=== PATIENT | female | born 1935 | race Caucasian/White ===

== ENCOUNTER 2020-12-02 12:48 | Inpatient (IN) | payer MEDICARE ==
[~2020-12-02] VITALS: Ht 165.1 cm; Wt 49.0 kg
[2020-12-02 14:03] LABS: BILIRUBIN,URINE NEG (NEG); CLARITY,URINE CLEAR; COLOR,URINE YELLOW; GLUCOSE,URINE NEG (NEG)
[2020-12-02 14:05] LABS: NITRITE,URINE NEG (NEG); UROBILINOGEN,URINE 0.2 mg/dL (0.2 mg/dL)
[2020-12-02 14:07] LABS: BACTERIA,URINE 0 /HPF (0-FEW); RBC,URINE RARE /HPF (0-2); WBC,URINE 0 /HPF (0-4)
[2020-12-02 14:25] LABS: BASO # 0.1 x10^3/uL (0.0-0.2); BASO % 1 % (0-3); CALCIUM 9.8 mg/dL (8.5-10.1); CREATININE 0.9 mg/dL (0.6-1.0); EOS # 0.1 x10^3/uL (0.0-0.7); EOS % 1 % (0-3); GFR 59.8; HEMATOCRIT 40.1 % (36.0-47.0); HEMOGLOBIN 13.7 g/dL (12.0-15.5); LYMPH # 1.4 x10^3/uL (1.0-4.8); LYMPH % 20 % (24-48); MEAN CORPUSCULAR HEMOGLOBIN 32 pg (25-35); MEAN CORPUSCULAR HGB CONC 34 g/dL (31-37); MEAN CORPUSCULAR VOLUME 92 fL (79-100); MONO # 0.5 x10^3/uL (0.0-1.1); MONO % 8 % (0-9); NEUT # 4.7 x10^3uL (1.8-7.7); NEUT % 70 % (31-73); PLATELET COUNT 291 x10^3/uL (140-400); POTASSIUM 3.2 mmol/L (3.5-5.1); RED BLOOD COUNT 4.36 x10^6/uL (3.50-5.40); RED CELL DISTRIBUTION WIDTH 12.7 % (11.5-14.5); WHITE BLOOD COUNT 6.8 x10^3/uL (4.0-11.0)
[2020-12-02] MEDS ORDERED: LORazepam 1 MG TABLET ONE (14:25)
[2020-12-02] MEDS ORDERED: LORazepam 1 MG TABLET PO ONE (14:30)
[2020-12-02 14:31] LABS: ALBUMIN 4.5 g/dL (3.4-5.0); ALBUMIN/GLOBULIN RATIO 1.3 (1.0-1.7); MAGNESIUM 2.3 mg/dL (1.8-2.4); TOTAL BILIRUBIN 0.6 mg/dL (0.2-1.0); TOTAL PROTEIN 8.1 g/dL (6.4-8.2)
--- NOTE | 2020-12-02 14:45 | PHYS DOC ---
Past History Past Medical History: Dementia, Hypertension Past Surgical History: Cholecystectomy Alcohol Use: None Adult General Chief Complaint Chief Complaint: MEDICAL CLEARANCE [facility] HPI Patient is an 85-year-old female who presents to the emergency room for medical clearance to go to [facility]. Patient has dementia and severe confusion. No other history is available. Patient is unable to provide us any history. She does have an acceptance at our [facility] facility and just needs lab work done prior to going up. Review of Systems Review of Systems Complete ROS is negative unless otherwise documented in HPI Current Medications Current Medications Current Medications Medications (Trade) Dose Ordered Sig/Brianne Start Time Stop Time Status Last Admin Dose Admin Lorazepam (Ativan) 1 mg 1X ONCE 12/02/20 14:30 12/02/20 14:36 DC 12/02/20 14:31 1 MG Allergies Allergies Allergies Coded Allergies Type Severity Reaction Last Updated Verified No Known Drug Allergies 12/02/20 No Physical Exam Physical Exam General: Awake, alert, NAD. Well Nourished, well hydrated. Confused HEENT: Atraumatic, EOMI, PERRL, airway patent, moist oral mucosa Neck: Supple, trachea midline Respiratory: CTA bilaterally, normal effort, no wheezing/crackles CV: RRR, no murmur, cap refill <2 GI: Soft, nondistended, nontender, no masses MSK: No obvious deformities Skin: Warm, dry, intact Neuro: A&O x1, speech NL, sensory and motor grossly intact, no focal deficits Psych: not suicidal or homicidal Current Patient Data Vital Signs Vital Signs Date Time Temp Pulse Resp B/P (MAP) Pulse Ox O2 Delivery O2 Flow Rate FiO2 12/02/20 12:54 97.3 89 22 132/75 (94) 99 Room Air Lab Results Laboratory Tests Test 12/02/20 13:20 12/02/20 13:50 Urine Collection Type U cath Urine Color Yellow Urine Clarity Clear Urine pH 6.0 Urine Specific Max 1.025 Urine Protein Neg (NEG-TRACE) Urine Glucose (UA) Neg mg/dL (NEG) Urine Ketones (Stick) 15 mg/dL (NEG) Urine Blood Small (NEG) Urine Nitrite Neg (NEG) Urine Bilirubin Neg (NEG) Urine Urobilinogen Dipstick 0.2 mg/dL (0.2 mg/dL) Urine Leukocyte Esterase Neg (NEG) Urine RBC Rare /HPF (0-2) Urine WBC 0 /HPF (0-4) Urine Bacteria 0 /HPF (0-FEW) White Blood Count 6.8 x10^3/uL (4.0-11.0) Red Blood Count 4.36 x10^6/uL (3.50-5.40) Hemoglobin 13.7 g/dL (12.0-15.5) Hematocrit 40.1 % (36.0-47.0) Mean Corpuscular Volume 92 fL (79-100) Mean Corpuscular Hemoglobin 32 pg (25-35) Mean Corpuscular Hemoglobin Concent 34 g/dL (31-37) Red Cell Distribution Width 12.7 % (11.5-14.5) Platelet Count 291 x10^3/uL (140-400) Neutrophils (%) (Auto) 70 % (31-73) Lymphocytes (%) (Auto) 20 % (24-48) L Monocytes (%) (Auto) 8 % (0-9) Eosinophils (%) (Auto) 1 % (0-3) Basophils (%) (Auto) 1 % (0-3) Neutrophils # (Auto) 4.7 x10^3uL (1.8-7.7) Lymphocytes # (Auto) 1.4 x10^3/uL (1.0-4.8) Monocytes # (Auto) 0.5 x10^3/uL (0.0-1.1) Eosinophils # (Auto) 0.1 x10^3/uL (0.0-0.7) Basophils # (Auto) 0.1 x10^3/uL (0.0-0.2) EKG EKG [] Radiology/Procedures Radiology/Procedures [] Heart Score C/O Chest Pain: N/A Risk Factors: Risk Factors: DM, Current or recent (<one month) smoker, HTN, HLP, family history of CAD, obesity. Risk Scores: Risk Factors: DM, Current or recent (<one month) smoker, HTN, HLP, family hist ory of CAD, obesity. Course & Med Decision Making Course & Med Decision Making Pertinent Labs and Imaging studies reviewed. (See chart for details) Patient is an 85-year-old female who presents to the emergency room for medical clearance. Lab work and EKG were ordered as requested. Patient did receive Ativan. She attempted to escape from the emergency room multiple times while here. Patient cleared to go upstairs. Dragon Disclaimer Dragon Disclaimer This electronic medical record was generated, in whole or in part, using a voice recognition dictation system. Departure Departure: Impression: Primary Impression: Dementia [facility] Condition: STABLE Referrals: PCP,NO (PCP) NATHANIEL FIGUEROA MD Dec 02, 2020 14:45
[2020-12-02] MEDS ORDERED: POTASSIUM BICARB 20 MEQ EFFERVESCENT TABLET. ONE (14:56)
[2020-12-02] MEDS ORDERED: POTASSIUM & SODIUM PHOSPHATES PACKET. PO ONE (15:00)
[2020-12-02] MEDS ORDERED: POTASSIUM BICARB 20 MEQ EFFERVESCENT TABLET. PO ONE (15:00)
[2020-12-02] MEDS ORDERED: MULT-460 PO (15:42)
[2020-12-02] MEDS ORDERED: LISI10TA16 PO (15:43)
[2020-12-02] MEDS ORDERED: MAGNESIUM HYDROXIDE 2,400 MG/30 ML ORAL.SUSP. PO PRN (15:45)
[2020-12-02] MEDS ORDERED: LORA-254 PO (15:45)
[2020-12-02] MEDS ORDERED: MAG HYDROX/AL HYDROX/SIMETH 30 ML ORAL.SUSP PO PRN (15:45)
[2020-12-02] MEDS ORDERED: METHYL SALICYLATE/MENTHOL TOPICAL OINTMENT 57GM TUBE. TP PRN (15:45)
[2020-12-02 15:56] VITALS: BP 136/73
--- NOTE | 2020-12-02 20:00 | EKG ---
[address] [address] Test Date: 2020-12-02 Test Time: 13:11:37 Pat Name: FARNAZ VASQUEZ Department: Room: Gender: F Rib Chopper: RANDY : 1935 Requested By: NATHANIEL FIGUEROA Order Number: [id number] Reading MD: Measurements Intervals [place] Rate: 85 P: 38 MS: 122 QRS: 26 QRSD: 80 T: 7 QT: 364 QTc: 439 Interpretive Statements SINUS RHYTHM NO SPECIFIC ECG ABNORMALITIES RI6.02 No previous ECG available for comparison
--- NOTE | 2020-12-02 22:07 | PDOC ---
Exam Note: Earle Note: Please also refer to the separate dictated note~for this date of service dictated separately.~Patient seen individually. Discussed the patient with Nursing staff reviewed the chart.~Reviewed interim history and current functioning. Reviewed vital signs,~Labs/ Radiology~and current medications noted below. Continue current treatment with the changes noted in the dictated addendum note Assessment: Vital Signs/I&O: Vital Signs Date Time Temp Pulse Resp B/P (MAP) Pulse Ox O2 Delivery O2 Flow Rate FiO2 12/02/20 15:56 98.0 97 20 136/73 (94) 97 12/02/20 12:54 Room Air Labs: Laboratory Tests Test 12/02/20 13:20 12/02/20 13:50 12/02/20 16:15 Urine Collection Type U cath Urine Color Yellow Urine Clarity Clear Urine pH 6.0 Urine Specific [place] 1.025 Urine Protein Neg (NEG-TRACE) Urine Glucose (UA) Neg mg/dL (NEG) Urine Ketones (Stick) 15 mg/dL (NEG) Urine Blood Small (NEG) Urine Nitrite Neg (NEG) Urine Bilirubin Neg (NEG) Urine Urobilinogen Dipstick 0.2 mg/dL (0.2 mg/dL) Urine Leukocyte Esterase Neg (NEG) Urine RBC Rare /HPF (0-2) Urine WBC 0 /HPF (0-4) Urine Bacteria 0 /HPF (0-FEW) White Blood Count 6.8 x10^3/uL (4.0-11.0) Red Blood Count 4.36 x10^6/uL (3.50-5.40) Hemoglobin 13.7 g/dL (12.0-15.5) Hematocrit 40.1 % (36.0-47.0) Mean Corpuscular Volume 92 fL (79-100) Mean Corpuscular Hemoglobin 32 pg (25-35) Mean Corpuscular Hemoglobin Concent 34 g/dL (31-37) Red Cell Distribution Width 12.7 % (11.5-14.5) Platelet Count 291 x10^3/uL (140-400) Neutrophils (%) (Auto) 70 % (31-73) Lymphocytes (%) (Auto) 20 % (24-48) L Monocytes (%) (Auto) 8 % (0-9) Eosinophils (%) (Auto) 1 % (0-3) Basophils (%) (Auto) 1 % (0-3) Neutrophils # (Auto) 4.7 x10^3uL (1.8-7.7) Lymphocytes # (Auto) 1.4 x10^3/uL (1.0-4.8) Monocytes # (Auto) 0.5 x10^3/uL (0.0-1.1) Eosinophils # (Auto) 0.1 x10^3/uL (0.0-0.7) Basophils # (Auto) 0.1 x10^3/uL (0.0-0.2) Sodium Level 143 mmol/L (136-145) Potassium Level 3.2 mmol/L (3.5-5.1) L Chloride Level 105 mmol/L (98-107) Carbon Dioxide Level 24 mmol/L (21-32) Anion Gap 14 (6-14) Blood Urea Nitrogen 9 mg/dL (7-20) Creatinine 0.9 mg/dL (0.6-1.0) Estimated GFR (Cockcroft-Gault) 59.8 BUN/Creatinine Ratio 10 (6-20) Glucose Level 107 mg/dL (70-99) H Calcium Level 9.8 mg/dL (8.5-10.1) Magnesium Level 2.3 mg/dL (1.8-2.4) Total Bilirubin 0.6 mg/dL (0.2-1.0) Aspartate Amino Transferase (AST) 22 U/L (15-37) Alanine Aminotransferase (ALT) 28 U/L (14-59) Alkaline Phosphatase 87 U/L (46-116) Total Protein 8.1 g/dL (6.4-8.2) Albumin 4.5 g/dL (3.4-5.0) Albumin/Globulin Ratio 1.3 (1.0-1.7) D-Dimer (Caroline) 0.76 mg/L (0.00-0.50) H Current Medications: Meds: Current Medications Medications (Trade) Dose Ordered Sig/Brianne Route PRN Reason Start Time Stop Time Status Last Admin Dose Admin Lorazepam (Ativan) 1 mg 1X ONCE PO 12/02/20 14:30 12/02/20 14:36 DC 12/02/20 14:31 Potassium Bicarbonate (Potassium Effervescent Tablet) 20 meq 1X ONCE PO 12/02/20 15:00 12/02/20 15:01 DC 12/02/20 15:00 I have reviewed the current psychotropics carefully including drug interactions. Risk benefit ratio favors no change other than as noted in my dictated progress note. Diagnosis: Problems: (1) Major neurocognitive disorder EMILY CHARLES MD Dec 02, 2020 22:07
--- NOTE | 2020-12-02 23:34 | HP ---
ADMIT DATE: 12/02/2020 PSYCHIATRIC ADMISSION HISTORY/EVALUATION IDENTIFYING DATA: The patient is an 85-year-old female referred to us from [facility] by her primary care physician/psychiatrist on account of increased confusion. She had been at the facility just briefly and was extremely agitated, biting and hitting staff at the facility. She was throwing things, agitated, restless, wandering attempting to elope. She had poor sleep, poor intake, throwing cups of water on the staff members at the facility multiple times. She tried to elope out of the back door of the Emergency Room at [facility] prior to being transferred to the [facility] behavioral health unit. The patient has a diagnosis of major neurocognitive disorder, Alzheimer, vascular with delusion behavioral disturbance. Her behaviors have been deemed dangerous, unmanageable, resulting in this referral. CHIEF COMPLAINT: "I live here. I was born here." HISTORY OF PRESENT ILLNESS: The patient has a history of major neurocognitive disorder, Alzheimer, vascular with delusion, depression, behavioral disturbance. She has had increasing confusion and short-term memory deficits, paranoia, agitation, aggression, marked mood lability with sleep and appetite changes. No clear history of bipolar disorder. PAST PSYCHIATRIC HISTORY: As above. ALLERGIES: Negative. CODE STATUS: DNR. PAST MEDICAL HISTORY: Hypertension, history of cholecystectomy in October 2001, history of hysterectomy, tonsillectomy. ACCU-CHEKS: None. DIET: Regular. Ambulates independently. CURRENT PSYCHOTROPICS: Zyprexa was initiated 2.5 mg q. 2 hours p.r.n., psychosis, agitation, max 7.5 mg in 24 hours. FAMILY HISTORY: Noncontributory. SOCIAL HISTORY: No history of alcohol, drug abuse, physical, sexual or elder abuse. She is not known to be a perpetrator. Reaction to hospitalization, the patient oblivious of it. ASSETS: Supportive living at the facility. REVIEW OF SYSTEMS: No CV, , pulmonary, eye, ENT system symptoms on review. Reliability poor. MENTAL STATUS EXAM: Oriented to herself. Insight, judgment, recent and remote memory, attention, concentration, fund of knowledge poor consistent with her diagnosis. IMPRESSION: Major neurocognitive disorder, Alzheimer, vascular with delusion, depression, behavioral disturbance, anxiety disorder, unspecified; impulse control disorder, unspecified. Rest unchanged from above. PLAN[facility]. I will see the patient daily individually from a psychiatric standpoint, medical followup with Dr. Mayfield/Dr. Baldwin. Continue current psychotropics. Observe baseline. Consider Zoloft as an antidepressant and antianxiety agent, Depakote as a mood stabilizer. ESTIMATED LENGTH OF STAY: 10 to 12 days. DISPOSITION: Plans back to [facility] when stable. DESIRE/WENDY/KAMINI DR: Mike TID: [id number]
[2020-12-03 05:55] VITALS: BP 136/84
[2020-12-03] MEDS: LISINOPRIL 10 MG TABLET PO SCH (08:34)
[2020-12-03] MEDS: MULTIVITAMIN with MINERAL TABLET. PO SCH (08:34)
[2020-12-03 12:11] LABS: THYROXINE 7.9 ug/dL (4.5-12.0)
[2020-12-03 15:44] VITALS: BP 144/64
[2020-12-03 20:31] LABS: THYROID STIM HORMONE (TSH) 1.395 uIU/mL (0.358-3.740)
--- NOTE | 2020-12-03 21:37 | CONS ---
DATE OF CONSULTATION: 12/03/2020 ATTENDING PHYSICIANS: Dr. Charles and Dr. Baldwin. We are asked to see this patient for medical consultation. HISTORY OF PRESENT ILLNESS: The patient is an 85-year-old female who lives in a senior living in [facility]. Her primary care doctor there is Dr. James. She is profoundly demented. Her has power of workers compensation attorney. She has been at the senior living. She is admitted here for agitation, aggressive behavior and not following commands and she is sent here for evaluation and adjustment of her medications at the neuropsychiatric unit. PAST MEDICAL HISTORY: Significant for dementia. She also has essential hypertension, generalized anxiety, underlying depression and some mild degenerative arthritis. SOCIAL HISTORY: She is a nonsmoker, nondrinker. She is having signs of increased delirium that is why her agreed to come here. She had been in a locked unit in [place] prior to be coming here. Her dementia seems to be getting worse. FAMILY HISTORY: Unobtainable. REVIEW OF SYSTEMS: Unobtainable. CURRENT MEDICINES: She was taking lisinopril, lorazepam, and multivitamin only. ALLERGIES: She has no known drug allergy PHYSICAL EXAMINATION: GENERAL: I saw her, this is a pleasant elderly female who was very confused and demented. INITIAL VITAL SIGNS: Show showed blood pressure 136/64 mmHg, pulse is 88 and regular. She was afebrile. Oxygen saturations are 98% on room air. HEENT: Head is without trauma. Pupils are reactive. The sclerae are nonicteric. The oropharynx is clear. NECK: Supple. No stridor. LUNGS: Good breath sounds. CARDIOVASCULAR: Showed regular heart tones. No obvious gallops. Peripheral pulses palpable and full. ABDOMEN: Soft, scaphoid, nontender. EXTREMITIES: Showed no cyanosis or edema. NEUROLOGIC FINDINGS: The patient is ambulatory. She has no gait disturbance, she is profoundly confused. She is not aware of person, place or time. SKIN: Warm and dry. PERTINENT LABORATORY STUDIES: Her admission hemoglobin was 13.7 g/dL with a white count of 6800. Electrolytes showed a sodium 143, potassium slightly diminished at 3.2 mEq per liter. Nonfasting blood sugar 107. Transaminases are normal. Creatinine 0.9 mg percent. ASSESSMENT: 1. An 85-year-old female who is profoundly demented sent here for increasing dementia, delirium and aggressive behavior. 2. Essential hypertension, currently normotensive. 3. Mild hypokalemia, etiology unclear. She is not on a diuretic. She is asymptomatic. 4. This patient is stable from a medical standpoint. RECOMMENDATIONS: 1. I shall order some oral potassium with a followup, but check next week on the scheduled time. 2. Home meds simplified have been continued. Thank you again for asking us to see the patient for medical consultation. We should gladly follow along during her inpatient stay. DAYANARA DR: Tatiana TID: [id number] CC: EMILY CHARLES MD
--- NOTE | 2020-12-03 22:16 | PDOC ---
Exam Note: Earle Note: Please also refer to the separate dictated note~for this date of service dictated separately.~Patient seen individually. Discussed the patient with Nursing staff reviewed the chart.~Reviewed interim history and current functioning. Reviewed vital signs,~Labs/ Radiology~and current medications noted below. Continue current treatment with the changes noted in the dictated addendum note Assessment: Vital Signs/I&O: Vital Signs Date Time Temp Pulse Resp B/P (MAP) Pulse Ox O2 Delivery O2 Flow Rate FiO2 12/03/20 15:44 97.8 93 20 144/64 (90) 97 12/03/20 05:55 Room Air I & O 12/02/20 12/02/20 12/03/20 15:00 23:00 07:00 Intake Total 460 ml 120 ml Balance 460 ml 120 ml Current Medications: Meds: Current Medications Medications (Trade) Dose Ordered Sig/Brianne Route PRN Reason Start Time Stop Time Status Last Admin Dose Admin Lorazepam (Ativan) 1 mg STK-MED ONCE .ROUTE 12/02/20 14:25 12/02/20 14:25 DC Lorazepam (Ativan) 1 mg 1X ONCE PO 12/02/20 14:30 12/02/20 14:36 DC 12/02/20 14:31 Potassium/ Phosphorus/Sodium (Phos-Nak) 1 pkt 1X ONCE PO 12/02/20 15:00 12/02/20 15:01 Cancel Potassium Bicarbonate (Potassium Effervescent Tablet) 20 meq STK-MED ONCE .ROUTE 12/02/20 14:56 12/02/20 14:57 DC Potassium Bicarbonate (Potassium Effervescent Tablet) 20 meq 1X ONCE PO 12/02/20 15:00 12/02/20 15:01 DC 12/02/20 15:00 Acetaminophen (Tylenol) 650 mg PRN Q6HRS PRN PO MILD PAIN / TEMP > 100.3'F 12/02/20 15:45 Multi-Ingredient Ointment (Analgesic [place]) 1 itz PRN QID PRN TP MUSCLE PAIN 12/02/20 15:45 Al Hydroxide/Mg Hydroxide (Mylanta Plus Xs) 15 ml PRN AFTMEALHC PRN PO DYSPEPSIA 12/02/20 15:45 Magnesium Hydroxide (Milk Of Magnesia) 2,400 mg PRN QHS PRN PO CONSTIPATION 12/02/20 15:45 6/15/21 16:29 Lisinopril (Prinivil) 10 mg DAILY PO 12/03/20 09:00 12/03/20 08:34 Multivitamins/ Calcium (Thera-M Plus) 1 tab DAILY PO 12/03/20 09:00 12/03/20 08:34 Olanzapine (ZyPREXA ZYDIS) 2.5 mg PRN Q2HRS PRN PO PSYCHOSIS 12/02/20 17:00 12/02/20 23:37 Potassium Chloride (Klor-Con) 20 meq DAILYWBKFT PO 12/04/20 08:00 Sertraline HCl (Zoloft) 25 mg DAILY PO 12/04/20 09:00 12/06/20 21:00 Sertraline HCl (Zoloft) 50 mg DAILY PO 12/07/20 09:00 Current Medications Medications (Trade) Dose Ordered Sig/Brianne Route PRN Reason Start Time Stop Time Status Last Admin Dose Admin Lisinopril (Prinivil) 10 mg DAILY PO 12/03/20 09:00 12/03/20 08:34 Multivitamins/ Calcium (Thera-M Plus) 1 tab DAILY PO 12/03/20 09:00 12/03/20 08:34 I have reviewed the current psychotropics carefully including drug interactions. Risk benefit ratio favors no change other than as noted in my dictated progress note. Diagnosis: Problems: (1) Dementia in Alzheimer's disease with delusions (2) Dementia in Alzheimer's disease with depression (3) Dementia of the Alzheimer's type with early onset with behavioral disturbance (4) Dementia, vascular, with delusions (5) Dementia, vascular, with depression (6) Anxiety disorder, unspecified (7) Impulse control disorder, unspecified (8) Major neurocognitive disorder EMILY CHARLES MD Dec 03, 2020 22:16
--- NOTE | 2020-12-03 23:33 | PDOC ---
Exam Note: Earle Note: This note covers elements not covered in my initial note. Subjective: The patient was seen individually in the evening of 12/03/2020 with Isis APPIAH, discussed and reviewed the chart. The patient slept 5-3/4 hours previous night. The patient has been anxious, wandering constantly, walking up and down the hallways confused, refused lunch and then she was picking items off the tray of other patients and had to be removed from the dining room. Review of Systems: Ambulation impaired. No CV, , pulmonary, eye system symptoms on review. Mental Status Exam: The patient is oriented to herself. Insight and judgment, recent and remote memory, attention and concentration is poor consistent with her diagnoses. Laboratory Data: Reviewed. Impression: Major neurocognitive disorder Alzheimer vascular with delusion, depression, and behavioral disturbance. Anxiety disorder unspecified. Impulse control disorder unspecified. Plan: Continue current psychotropics. Start Zoloft 25 mg a day for 3 days, then 50 mg a day thereafter. This is to address some of her anxiety, mood symptoms, irritability. We will make further adjustments as clinically indicated. Assessment: Vital Signs/I&O: Vital Signs Date Time Temp Pulse Resp B/P (MAP) Pulse Ox O2 Delivery O2 Flow Rate FiO2 12/03/20 15:44 97.8 93 20 144/64 (90) 97 12/03/20 05:55 Room Air I & O 12/02/20 12/02/20 12/03/20 15:00 23:00 07:00 Intake Total 460 ml 120 ml Balance 460 ml 120 ml Current Medications: Meds: Current Medications Medications (Trade) Dose Ordered Sig/Brianne Route PRN Reason Start Time Stop Time Status Last Admin Dose Admin Lorazepam (Ativan) 1 mg STK-MED ONCE .ROUTE 12/02/20 14:25 12/02/20 14:25 DC Lorazepam (Ativan) 1 mg 1X ONCE PO 12/02/20 14:30 12/02/20 14:36 DC 12/02/20 14:31 Potassium/ Phosphorus/Sodium (Phos-Nak) 1 pkt 1X ONCE PO 12/02/20 15:00 12/02/20 15:01 Cancel Potassium Bicarbonate (Potassium Effervescent Tablet) 20 meq STK-MED ONCE .ROUTE 12/02/20 14:56 12/02/20 14:57 DC Potassium Bicarbonate (Potassium Effervescent Tablet) 20 meq 1X ONCE PO 12/02/20 15:00 12/02/20 15:01 DC 12/02/20 15:00 Acetaminophen (Tylenol) 650 mg PRN Q6HRS PRN PO MILD PAIN / TEMP > 100.3'F 12/02/20 15:45 Multi-Ingredient Ointment (Analgesic [place]) 1 itz PRN QID PRN TP MUSCLE PAIN 12/02/20 15:45 Al Hydroxide/Mg Hydroxide (Mylanta Plus Xs) 15 ml PRN AFTMEALHC PRN PO DYSPEPSIA 12/02/20 15:45 Magnesium Hydroxide (Milk Of Magnesia) 2,400 mg PRN QHS PRN PO CONSTIPATION 12/02/20 15:45 12/03/20 16:29 Lisinopril (Prinivil) 10 mg DAILY PO 12/03/20 09:00 12/03/20 08:34 Multivitamins/ Calcium (Thera-M Plus) 1 tab DAILY PO 12/03/20 09:00 12/03/20 08:34 Olanzapine (ZyPREXA ZYDIS) 2.5 mg PRN Q2HRS PRN PO PSYCHOSIS 12/02/20 17:00 12/02/20 23:37 Potassium Chloride (Klor-Con) 20 meq DAILYWBKFT PO 12/04/20 08:00 Sertraline HCl (Zoloft) 25 mg DAILY PO 12/04/20 09:00 12/06/20 21:00 Sertraline HCl (Zoloft) 50 mg DAILY PO 12/07/20 09:00 Current Medications Medications (Trade) Dose Ordered Sig/Brianne Route PRN Reason Start Time Stop Time Status Last Admin Dose Admin Lisinopril (Prinivil) 10 mg DAILY PO 12/03/20 09:00 12/03/20 08:34 Multivitamins/ Calcium (Thera-M Plus) 1 tab DAILY PO 12/03/20 09:00 12/03/20 08:34 I have reviewed the current psychotropics carefully including drug interactions. Risk benefit ratio favors no change other than as noted in my dictated progress note. Diagnosis: Problems: (1) Impulse control disorder, unspecified (2) Anxiety disorder, unspecified (3) Dementia, vascular, with depression (4) Dementia, vascular, with delusions (5) Dementia in Alzheimer's disease with depression (6) Dementia in Alzheimer's disease with delusions (7) Dementia of the Alzheimer's type with early onset with behavioral disturbance EMILY CHARLES MD Dec 03, 2020 23:33
[2020-12-04 00:07] LABS: HEMOGLOBIN A1C 5.4 % (4.8-5.6)
[2020-12-04 06:01] VITALS: BP 129/63
[2020-12-04] MEDS: LISINOPRIL 10 MG TABLET PO SCH (09:49)
[2020-12-04] MEDS: SERTRALINE 25 MG TABLET. PO SCH (09:50)
[2020-12-04] MEDS: MULTIVITAMIN with MINERAL TABLET. PO SCH (09:50)
[2020-12-04] MEDS: POTASSIUM CHLORIDE 20 MEQ TABLET.ER. PO SCH (09:50)
[2020-12-04 15:45] VITALS: BP 142/87
--- NOTE | 2020-12-04 22:07 | PDOC ---
Exam Note: Earle Note: Please also refer to the separate dictated note~for this date of service dictated separately.~Patient seen individually. Discussed the patient with Nursing staff reviewed the chart.~Reviewed interim history and current functioning. Reviewed vital signs,~Labs/ Radiology~and current medications noted below. Continue current treatment with the changes noted in the dictated addendum note Assessment: Vital Signs/I&O: Vital Signs Date Time Temp Pulse Resp B/P (MAP) Pulse Ox O2 Delivery O2 Flow Rate FiO2 12/04/20 15:45 97.4 91 16 142/87 (105) 100 12/03/20 05:55 Room Air I & O 12/03/20 12/03/20 12/04/20 14:59 22:59 06:59 Intake Total 780 ml 240 ml Balance 780 ml 240 ml Current Medications: Meds: Current Medications Medications (Trade) Dose Ordered Sig/Brianne Route PRN Reason Start Time Stop Time Status Last Admin Dose Admin Lorazepam (Ativan) 1 mg STK-MED ONCE .ROUTE 12/02/20 14:25 12/02/20 14:25 DC Lorazepam (Ativan) 1 mg 1X ONCE PO 12/02/20 14:30 12/02/20 14:36 DC 12/02/20 14:31 Potassium/ Phosphorus/Sodium (Phos-Nak) 1 pkt 1X ONCE PO 12/02/20 15:00 12/02/20 15:01 Cancel Potassium Bicarbonate (Potassium Effervescent Tablet) 20 meq STK-MED ONCE .ROUTE 12/02/20 14:56 12/02/20 14:57 DC Potassium Bicarbonate (Potassium Effervescent Tablet) 20 meq 1X ONCE PO 12/02/20 15:00 12/02/20 15:01 DC 12/02/20 15:00 Acetaminophen (Tylenol) 650 mg PRN Q6HRS PRN PO MILD PAIN / TEMP > 100.3'F 12/02/20 15:45 Multi-Ingredient Ointment (Analgesic [place]) 1 itz PRN QID PRN TP MUSCLE PAIN 12/02/20 15:45 Al Hydroxide/Mg Hydroxide (Mylanta Plus Xs) 15 ml PRN AFTMEALHC PRN PO DYSPEPSIA 12/02/20 15:45 Magnesium Hydroxide (Milk Of Magnesia) 2,400 mg PRN QHS PRN PO CONSTIPATION 12/02/20 15:45 6/15/21 16:29 Lisinopril (Prinivil) 10 mg DAILY PO 12/03/20 09:00 12/04/20 09:49 Multivitamins/ Calcium (Thera-M Plus) 1 tab DAILY PO 12/03/20 09:00 12/04/20 09:50 Olanzapine (ZyPREXA ZYDIS) 2.5 mg PRN Q2HRS PRN PO PSYCHOSIS 12/02/20 17:00 12/02/20 23:37 Potassium Chloride (Klor-Con) 20 meq DAILYWBKFT PO 12/04/20 08:00 12/04/20 09:50 Sertraline HCl (Zoloft) 25 mg DAILY PO 12/04/20 09:00 12/06/20 21:00 12/04/20 09:50 Sertraline HCl (Zoloft) 50 mg DAILY PO 12/07/20 09:00 Current Medications Medications (Trade) Dose Ordered Sig/Brianne Route PRN Reason Start Time Stop Time Status Last Admin Dose Admin Potassium Chloride (Klor-Con) 20 meq DAILYWBKFT PO 12/04/20 08:00 12/04/20 09:50 Sertraline HCl (Zoloft) 25 mg DAILY PO 12/04/20 09:00 12/06/20 21:00 12/04/20 09:50 I have reviewed the current psychotropics carefully including drug interactions. Risk benefit ratio favors no change other than as noted in my dictated progress note. 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
[2020-12-05 06:33] VITALS: BP 118/70
[2020-12-05] MEDS: MULTIVITAMIN with MINERAL TABLET. PO SCH (09:29)
[2020-12-05] MEDS: SERTRALINE 25 MG TABLET. PO SCH (09:30)
[2020-12-05] MEDS: LISINOPRIL 10 MG TABLET PO SCH (09:30)
[2020-12-05] MEDS: POTASSIUM CHLORIDE 20 MEQ TABLET.ER. PO SCH (09:30)
--- NOTE | 2020-12-05 12:39 | TX PLAN ---
Interdisciplinary Tx Plan Admission Information Dec 02, 2020 at 15:25 Legal Status (on Admission): Voluntary DPOA/Guardian Name: Aron Razo Contact Other Contact Name: [facility] Other Contact Verified Code Status: DNR Allergies: Coded Allergies: No Known Drug Allergies (Unverified , 12/02/20) Diagnoses Primary Diagnosis: Major Neurocognitive D/O, Vascular Alzheimers with delusions and depression Reasons for Admission: Aggressive, Sig. Change Sleep, Combative, Confusion/Disoriented, Poor impulse control, Other Problem in Patient's Words: She has declined pretty quickly in the last 3 months. Additional Admission Comments: According to the intake, pt was biting, hitting staff at LT, throwing things, agitated, restless, wandering, attempts to elope, poor sleep, poor intake, throwing cups of water on LTC staff, attempted to elope out of the back door of [facility] ED during medical clearance. Problems Active Problems: restless wandering increased confusion Inactive Problems: medication compliance Pt Strengths/Limitations Ability for [place]: Poor Cognitive Functioning/Ability: Poor Communication Skills/Ability: Poor Financial Resources: Good Insight/Judgement: Poor Intellectual Ability: Poor Physical Health: Fair Social Skills: Fair Stability in Family: Good Stability in School/Work: Poor Verbal Skills: Poor Discharge Criteria Discharge Criteria: No need for close observ., Adequate arrangements @DC, Improved behavior, Improved mood/thought Preliminary Discharge Plan Preliminary DC Plan: Current Living Arrange. Initial D/C Plan Unknown at this time Identified Discharge Needs: Pt may bring pt home; unknown at this time. Currently Utilized Resources Currently Utilized Resources/P: Primary Care Physician Identified Problems/Hx/Goals Objectives/Short-Term Goals Short Term Goals: Dec. Aggression, Dec. Outbursts, Medication Stabilization, Monitor Med Effects, Promote Coping Skill Short Term Goals in Patient's: N/A Interventions/Frequency Staff Interventions/Frequency&: Psychiatrist to assess pt at least 3x per week for medication management. Social Wok to assess pt at least 2x per week to identify barriers to care and discharge planning. Nursing to assess medication effects, behavior modification and complete 15 minute checks. 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 Education: Pt did graduate high school (12th grade); attended [employer] in [place] with her B.A. in [place] degree. Community Follow-up Primary Care Physician Mental Health Services Treatment Plan Explained Patient/Sewing Machine Attachment Tester had this treatment plan explained to him/her as indicated by the signature below and has been given the opportunity to ask questions and make suggestions: Date: Patient/Sewing Machine Attachment Tester Signature: Patient/Sewing Machine Attachment Tester Decline: No ( is very active in care.) HEDY BARRON Dec 05, 2020 12:39
[2020-12-05 16:09] VITALS: BP 102/56
--- NOTE | 2020-12-05 22:07 | PDOC ---
Exam Note: Earle Note: Please also refer to the separate dictated note~for this date of service dictated separately.~Patient seen individually. Discussed the patient with Nursing staff reviewed the chart.~Reviewed interim history and current functioning. Reviewed vital signs,~Labs/ Radiology~and current medications noted below. Continue current treatment with the changes noted in the dictated addendum note Assessment: Vital Signs/I&O: Vital Signs Date Time Temp Pulse Resp B/P (MAP) Pulse Ox O2 Delivery O2 Flow Rate FiO2 12/05/20 16:09 98.0 72 16 102/56 (71) 96 Room Air I & O 12/04/20 12/04/20 12/05/20 15:00 23:00 07:00 Intake Total 720 ml 480 ml Balance 720 ml 480 ml Current Medications: Meds: Current Medications Medications (Trade) Dose Ordered Sig/Brianne Route PRN Reason Start Time Stop Time Status Last Admin Dose Admin Lorazepam (Ativan) 1 mg STK-MED ONCE .ROUTE 12/02/20 14:25 12/02/20 14:25 DC Lorazepam (Ativan) 1 mg 1X ONCE PO 12/02/20 14:30 12/02/20 14:36 DC 12/02/20 14:31 Potassium/ Phosphorus/Sodium (Phos-Nak) 1 pkt 1X ONCE PO 12/02/20 15:00 12/02/20 15:01 Cancel Potassium Bicarbonate (Potassium Effervescent Tablet) 20 meq STK-MED ONCE .ROUTE 12/02/20 14:56 12/02/20 14:57 DC Potassium Bicarbonate (Potassium Effervescent Tablet) 20 meq 1X ONCE PO 12/02/20 15:00 12/02/20 15:01 DC 12/02/20 15:00 Acetaminophen (Tylenol) 650 mg PRN Q6HRS PRN PO MILD PAIN / TEMP > 100.3'F 12/02/20 15:45 Multi-Ingredient Ointment (Analgesic [place]) 1 itz PRN QID PRN TP MUSCLE PAIN 12/02/20 15:45 Al Hydroxide/Mg Hydroxide (Mylanta Plus Xs) 15 ml PRN AFTMEALHC PRN PO DYSPEPSIA 12/02/20 15:45 Magnesium Hydroxide (Milk Of Magnesia) 2,400 mg PRN QHS PRN PO CONSTIPATION 12/02/20 15:45 12/03/20 16:29 Lisinopril (Prinivil) 10 mg DAILY PO 12/03/20 09:00 12/05/20 09:30 Multivitamins/ Calcium (Thera-M Plus) 1 tab DAILY PO 12/03/20 09:00 12/05/20 09:29 Olanzapine (ZyPREXA ZYDIS) 2.5 mg PRN Q2HRS PRN PO PSYCHOSIS 12/02/20 17:00 12/05/20 11:15 Potassium Chloride (Klor-Con) 20 meq DAILYWBKFT PO 12/04/20 08:00 12/05/20 09:30 Sertraline HCl (Zoloft) 25 mg DAILY PO 12/04/20 09:00 12/06/20 21:00 12/05/20 09:30 Sertraline HCl (Zoloft) 50 mg DAILY PO 12/07/20 09:00 I have reviewed the current psychotropics carefully including drug interactions. Risk benefit ratio favors no change other than as noted in my dictated progress note. Diagnosis: Problems: (1) Major neurocognitive disorder (2) Impulse control disorder, unspecified (3) Anxiety disorder, unspecified (4) Dementia, vascular, with depression (5) Dementia, vascular, with delusions (6) Dementia in Alzheimer's disease with depression (7) Dementia in Alzheimer's disease with delusions (8) Dementia of the Alzheimer's type with early onset with behavioral disturbance EMILY CHARLES MD Dec 05, 2020 22:07
[2020-12-06 06:05] VITALS: BP 133/71
[2020-12-06] MEDS: SERTRALINE 25 MG TABLET. PO SCH (08:17)
[2020-12-06] MEDS: MULTIVITAMIN with MINERAL TABLET. PO SCH (08:17)
[2020-12-06] MEDS: LISINOPRIL 10 MG TABLET PO SCH (08:18)
[2020-12-06] MEDS: POTASSIUM CHLORIDE 20 MEQ TABLET.ER. PO SCH (08:18)
--- NOTE | 2020-12-06 08:34 | PDOC ---
Exam Note: Earle Note: This note is a late entry for 12/04/2020 covers elements not covered in my initial note. Subjective: The patient was seen individually in the evening of 12/04/2020 with Isis APPIAH, discussed and reviewed the chart. The patient slept 6 hours previous night. The patient has been confused, wandering constantly, compliant with medications. No aggression. She was hypokalemic. Received supplements. Review of Systems: Ambulation impaired. No CV, , pulmonary, eye system symptoms on review. Mental Status Exam: The patient is oriented to herself. Insight and judgment, recent and remote memory, attention and concentration is poor consistent with her diagnoses. Laboratory Data: Reviewed. Impression: Major neurocognitive disorder Alzheimer vascular with delusion, depression, and behavioral disturbance. Anxiety disorder unspecified. Impulse control disorder unspecified. Plan: Continue current psychotropics. Zoloft was initiated 25 mg a day. We may need to increase this. Maintain Zyprexa p.r.n. Adjust further as clinically indicated. Assessment: Vital Signs/I&O: Vital Signs Date Time Temp Pulse Resp B/P (MAP) Pulse Ox O2 Delivery O2 Flow Rate FiO2 12/06/20 08:18 72 133/71 12/06/20 06:05 96.2 18 96 Room Air I & O 0 12/05/20 12/05/20 12/06/20 15:00 23:00 07:00 Intake Total 360 ml 240 ml Balance 360 ml 240 ml Current Medications: Meds: Current Medications Medications (Trade) Dose Ordered Sig/Brianne Route PRN Reason Start Time Stop Time Status Last Admin Dose Admin Lorazepam (Ativan) 1 mg STK-MED ONCE .ROUTE 12/02/20 14:25 12/02/20 14:25 DC Lorazepam (Ativan) 1 mg 1X ONCE PO 12/02/20 14:30 12/02/20 14:36 DC 12/02/20 14:31 Potassium/ Phosphorus/Sodium (Phos-Nak) 1 pkt 1X ONCE PO 12/02/20 15:00 12/02/20 15:01 Cancel Potassium Bicarbonate (Potassium Effervescent Tablet) 20 meq STK-MED ONCE .ROUTE 12/02/20 14:56 12/02/20 14:57 DC Potassium Bicarbonate (Potassium Effervescent Tablet) 20 meq 1X ONCE PO 12/02/20 15:00 12/02/20 15:01 DC 12/02/20 15:00 Acetaminophen (Tylenol) 650 mg PRN Q6HRS PRN PO MILD PAIN / TEMP > 100.3'F 12/02/20 15:45 Multi-Ingredient Ointment (Analgesic [place]) 1 itz PRN QID PRN TP MUSCLE PAIN 12/02/20 15:45 Al Hydroxide/Mg Hydroxide (Mylanta Plus Xs) 15 ml PRN AFTMEALHC PRN PO DYSPEPSIA 12/02/20 15:45 Magnesium Hydroxide (Milk Of Magnesia) 2,400 mg PRN QHS PRN PO CONSTIPATION 12/02/20 15:45 12/03/20 16:29 Lisinopril (Prinivil) 10 mg DAILY PO 12/03/20 09:00 12/06/20 08:18 Multivitamins/ Calcium (Thera-M Plus) 1 tab DAILY PO 12/03/20 09:00 12/06/20 08:17 Olanzapine (ZyPREXA ZYDIS) 2.5 mg PRN Q2HRS PRN PO PSYCHOSIS 12/02/20 17:00 12/05/20 11:15 Potassium Chloride (Klor-Con) 20 meq DAILYWBKFT PO 12/04/20 08:00 12/06/20 08:18 Sertraline HCl (Zoloft) 25 mg DAILY PO 12/04/20 09:00 12/06/20 21:00 12/06/20 08:17 Sertraline HCl (Zoloft) 50 mg DAILY PO 12/07/20 09:00 I have reviewed the current psychotropics carefully including drug interactions. Risk benefit ratio favors no change other than as noted in my dictated progress note. Diagnosis: Problems: (1) Major neurocognitive disorder (2) Impulse control disorder, unspecified (3) Anxiety disorder, unspecified (4) Dementia, vascular, with depression (5) Dementia, vascular, with delusions (6) Dementia in Alzheimer's disease with depression (7) Dementia in Alzheimer's disease with delusions (8) Dementia of the Alzheimer's type with early onset with behavioral disturbance EMILY CHARLES MD Dec 06, 2020 08:34
--- NOTE | 2020-12-06 08:54 | PDOC ---
Exam Note: Earle Note: This note is a late entry for 12/05/2020 covers elements not covered in my initial note. Subjective: The patient was reviewed in the morning of 12/05/2020 for a treatment team meeting with Maryana Rice, Mayi Motley (marriage and family social worker), Elizabeth, activity therapy and Chuck APPIAH, discussed and reviewed the chart. The patient slept 4 hours previous night. She slept 5-14 hours average. Appetite 35%. The patients Aron attended the meeting. We reviewed a detailed history. He has been caring for her at home till she started eloping repeatedly and then he took her to [facility]. Review of Systems: Ambulation impaired. No CV, , pulmonary, eye system symptoms on review. Reliability poor. Mental Status Exam: The patient is oriented to herself. Insight and judgment, recent and remote memory, attention and concentration is poor consistent with her diagnoses. Laboratory Data: Reviewed. Impression: Major neurocognitive disorder Alzheimer vascular with delusion, depression, and behavioral disturbance. Anxiety disorder unspecified. Impulse control disorder unspecified. Plan: Continue current psychotropics. Assessment: Vital Signs/I&O: Vital Signs Date Time Temp Pulse Resp B/P (MAP) Pulse Ox O2 Delivery O2 Flow Rate FiO2 12/06/20 08:18 72 133/71 12/06/20 06:05 96.2 18 96 Room Air I & O 12/05/20 12/05/20 12/06/20 15:00 23:00 07:00 Intake Total 360 ml 240 ml Balance 360 ml 240 ml Current Medications: Meds: Current Medications Medications (Trade) Dose Ordered Sig/Brianne Route PRN Reason Start Time Stop Time Status Last Admin Dose Admin Lorazepam (Ativan) 1 mg STK-MED ONCE .ROUTE 12/02/20 14:25 12/02/20 14:25 DC Lorazepam (Ativan) 1 mg 1X ONCE PO 12/02/20 14:30 12/02/20 14:36 DC 12/02/20 14:31 Potassium/ Phosphorus/Sodium (Phos-Nak) 1 pkt 1X ONCE PO 12/02/20 15:00 12/02/20 15:01 Cancel Potassium Bicarbonate (Potassium Effervescent Tablet) 20 meq STK-MED ONCE .ROUTE 12/02/20 14:56 12/02/20 14:57 DC Potassium Bicarbonate (Potassium Effervescent Tablet) 20 meq 1X ONCE PO 12/02/20 15:00 12/02/20 15:01 DC 12/02/20 15:00 Acetaminophen (Tylenol) 650 mg PRN Q6HRS PRN PO MILD PAIN / TEMP > 100.3'F 12/02/20 15:45 Multi-Ingredient Ointment (Analgesic [place]) 1 itz PRN QID PRN TP MUSCLE PAIN 12/02/20 15:45 Al Hydroxide/Mg Hydroxide (Mylanta Plus Xs) 15 ml PRN AFTMEALHC PRN PO DYSPEPSIA 12/02/20 15:45 Magnesium Hydroxide (Milk Of Magnesia) 2,400 mg PRN QHS PRN PO CONSTIPATION 12/02/20 15:45 12/03/20 16:29 Lisinopril (Prinivil) 10 mg DAILY PO 12/03/20 09:00 12/06/20 08:18 Multivitamins/ Calcium (Thera-M Plus) 1 tab DAILY PO 12/03/20 09:00 12/06/20 08:17 Olanzapine (ZyPREXA ZYDIS) 2.5 mg PRN Q2HRS PRN PO PSYCHOSIS 12/02/20 17:00 12/05/20 11:15 Potassium Chloride (Klor-Con) 20 meq DAILYWBKFT PO 12/04/20 08:00 12/06/20 08:18 Sertraline HCl (Zoloft) 25 mg DAILY PO 12/04/20 09:00 12/06/20 21:00 12/06/20 08:17 Sertraline HCl (Zoloft) 50 mg DAILY PO 12/07/20 09:00 I have reviewed the current psychotropics carefully including drug interactions. Risk benefit ratio favors no change other than as noted in my dictated progress note. Diagnosis: Problems: (1) Impulse control disorder, unspecified (2) Anxiety disorder, unspecified (3) Dementia, vascular, with depression (4) Dementia, vascular, with delusions (5) Dementia in Alzheimer's disease with depression (6) Dementia in Alzheimer's disease with delusions (7) Dementia of the Alzheimer's type with early onset with behavioral disturbance (8) Major neurocognitive disorder EMILY CHARLES MD Dec 06, 2020 08:54
[2020-12-06 15:42] VITALS: BP 152/88
--- NOTE | 2020-12-06 22:06 | PDOC ---
Exam Note: Earle Note: Please also refer to the separate dictated note~for this date of service dictated separately.~Patient seen individually. Discussed the patient with Nursing staff reviewed the chart.~Reviewed interim history and current functioning. Reviewed vital signs,~Labs/ Radiology~and current medications noted below. Continue current treatment with the changes noted in the dictated addendum note Assessment: Vital Signs/I&O: Vital Signs Date Time Temp Pulse Resp B/P (MAP) Pulse Ox O2 Delivery O2 Flow Rate FiO2 12/06/20 15:42 97.9 68 20 152/88 (109) 97 Room Air I & O 12/05/20 12/05/20 12/06/20 15:00 23:00 07:00 Intake Total 360 ml 240 ml Balance 360 ml 240 ml Current Medications: Meds: Current Medications Medications (Trade) Dose Ordered Sig/Brianne Route PRN Reason Start Time Stop Time Status Last Admin Dose Admin Lorazepam (Ativan) 1 mg STK-MED ONCE .ROUTE 12/02/20 14:25 12/02/20 14:25 DC Lorazepam (Ativan) 1 mg 1X ONCE PO 12/02/20 14:30 12/02/20 14:36 DC 12/02/20 14:31 Potassium/ Phosphorus/Sodium (Phos-Nak) 1 pkt 1X ONCE PO 12/02/20 15:00 12/02/20 15:01 Cancel Potassium Bicarbonate (Potassium Effervescent Tablet) 20 meq STK-MED ONCE .ROUTE 12/02/20 14:56 12/02/20 14:57 DC Potassium Bicarbonate (Potassium Effervescent Tablet) 20 meq 1X ONCE PO 12/02/20 15:00 12/02/20 15:01 DC 12/02/20 15:00 Acetaminophen (Tylenol) 650 mg PRN Q6HRS PRN PO MILD PAIN / TEMP > 100.3'F 12/02/20 15:45 Multi-Ingredient Ointment (Analgesic [place]) 1 itz PRN QID PRN TP MUSCLE PAIN 12/02/20 15:45 Al Hydroxide/Mg Hydroxide (Mylanta Plus Xs) 15 ml PRN AFTMEALHC PRN PO DYSPEPSIA 12/02/20 15:45 Magnesium Hydroxide (Milk Of Magnesia) 2,400 mg PRN QHS PRN PO CONSTIPATION 12/02/20 15:45 12/03/20 16:29 Lisinopril (Prinivil) 10 mg DAILY PO 12/03/20 09:00 12/06/20 08:18 Multivitamins/ Calcium (Thera-M Plus) 1 tab DAILY PO 12/03/20 09:00 12/06/20 08:17 Olanzapine (ZyPREXA ZYDIS) 2.5 mg PRN Q2HRS PRN PO PSYCHOSIS 12/02/20 17:00 12/05/20 11:15 Potassium Chloride (Klor-Con) 20 meq DAILYWBKFT PO 12/04/20 08:00 12/06/20 08:18 Sertraline HCl (Zoloft) 25 mg DAILY PO 12/04/20 09:00 12/06/20 21:00 DC 12/06/20 08:17 Sertraline HCl (Zoloft) 50 mg DAILY PO 12/07/20 09:00 I have reviewed the current psychotropics carefully including drug interactions. Risk benefit ratio favors no change other than as noted in my dictated progress note. 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
[2020-12-07 05:29] VITALS: BP 112/67
[2020-12-07] MEDS: POTASSIUM CHLORIDE 20 MEQ TABLET.ER. PO SCH ×2 (08:00→08:33)
[2020-12-07] MEDS: LISINOPRIL 10 MG TABLET PO SCH (08:25)
[2020-12-07] MEDS: SERTRALINE 50 MG TABLET. PO SCH (08:27)
[2020-12-07] MEDS: MULTIVITAMIN with MINERAL TABLET. PO SCH (08:27)
[2020-12-07 16:01] VITALS: BP 141/83
--- NOTE | 2020-12-07 22:10 | PDOC ---
Exam Note: Earle Note: Please also refer to the separate dictated note~for this date of service dictated separately.~Patient seen individually. Discussed the patient with Nursing staff reviewed the chart.~Reviewed interim history and current functioning. Reviewed vital signs,~Labs/ Radiology~and current medications noted below. Continue current treatment with the changes noted in the dictated addendum note Assessment: Vital Signs/I&O: Vital Signs Date Time Temp Pulse Resp B/P (MAP) Pulse Ox O2 Delivery O2 Flow Rate FiO2 12/07/20 16:01 98.3 84 16 141/83 (102) 96 12/07/20 05:29 Room Air I & O 12/06/20 12/06/20 12/07/20 15:00 23:00 07:00 Intake Total 600 ml 720 ml Balance 600 ml 720 ml Current Medications: Meds: Current Medications Medications (Trade) Dose Ordered Sig/Brianne Route PRN Reason Start Time Stop Time Status Last Admin Dose Admin Lorazepam (Ativan) 1 mg STK-MED ONCE .ROUTE 12/02/20 14:25 12/02/20 14:25 DC Lorazepam (Ativan) 1 mg 1X ONCE PO 12/02/20 14:30 12/02/20 14:36 DC 12/02/20 14:31 Potassium/ Phosphorus/Sodium (Phos-Nak) 1 pkt 1X ONCE PO 12/02/20 15:00 12/02/20 15:01 Cancel Potassium Bicarbonate (Potassium Effervescent Tablet) 20 meq STK-MED ONCE .ROUTE 12/02/20 14:56 12/02/20 14:57 DC Potassium Bicarbonate (Potassium Effervescent Tablet) 20 meq 1X ONCE PO 12/02/20 15:00 12/02/20 15:01 DC 12/02/20 15:00 Acetaminophen (Tylenol) 650 mg PRN Q6HRS PRN PO MILD PAIN / TEMP > 100.3'F 12/02/20 15:45 Multi-Ingredient Ointment (Analgesic [place]) 1 itz PRN QID PRN TP MUSCLE PAIN 12/02/20 15:45 Al Hydroxide/Mg Hydroxide (Mylanta Plus Xs) 15 ml PRN AFTMEALHC PRN PO DYSPEPSIA 12/02/20 15:45 Magnesium Hydroxide (Milk Of Magnesia) 2,400 mg PRN QHS PRN PO CONSTIPATION 12/02/20 15:45 6/15/21 16:29 Lisinopril (Prinivil) 10 mg DAILY PO 12/03/20 09:00 12/07/20 08:25 Multivitamins/ Calcium (Thera-M Plus) 1 tab DAILY PO 12/03/20 09:00 12/07/20 08:27 Olanzapine (ZyPREXA ZYDIS) 2.5 mg PRN Q2HRS PRN PO PSYCHOSIS 12/02/20 17:00 12/07/20 17:28 Potassium Chloride (Klor-Con) 20 meq DAILYWBKFT PO 12/04/20 08:00 12/07/20 08:33 Sertraline HCl (Zoloft) 25 mg DAILY PO 12/04/20 09:00 12/06/20 21:00 DC 12/06/20 08:17 Sertraline HCl (Zoloft) 50 mg DAILY PO 12/07/20 09:00 12/07/20 08:27 Current Medications Medications (Trade) Dose Ordered Sig/Brianne Route PRN Reason Start Time Stop Time Status Last Admin Dose Admin Sertraline HCl (Zoloft) 50 mg DAILY PO 12/07/20 09:00 12/07/20 08:27 I have reviewed the current psychotropics carefully including drug interactions. Risk benefit ratio favors no change other than as noted in my dictated progress note. Diagnosis: Problems: (1) Major neurocognitive disorder (2) Impulse control disorder, unspecified (3) Anxiety disorder, unspecified (4) Dementia, vascular, with depression (5) Dementia, vascular, with delusions (6) Dementia in Alzheimer's disease with depression (7) Dementia in Alzheimer's disease with delusions (8) Dementia of the Alzheimer's type with early onset with behavioral disturbance EMILY CHARLES MD Dec 07, 2020 22:10
[2020-12-08 05:46] VITALS: BP 133/56
--- NOTE | 2020-12-08 08:19 | PDOC ---
Exam Note: Earle Note: This note is a late entry for 12/06/2020 covers elements not covered in my initial note. Subjective: The patient was seen individually in the evening of 12/06/2020 with Chuck APPIAH, discussed and reviewed the chart. The patient slept 6 hours previous night. She remains confused, wandering, not aggressive. No p.r.n.s. have been given. Review of Systems: Ambulation impaired. No CV, , pulmonary, eye system symptoms on review. Reliability poor. Mental Status Exam: The patient is oriented to herself. Insight and judgment, recent and remote memory, attention and concentration is poor consistent with her diagnoses. Laboratory Data: Reviewed. Impression: Major neurocognitive disorder Alzheimer vascular with delusion, depression, and behavioral disturbance. Anxiety disorder unspecified. Impulse control disorder unspecified. Plan: Continue current psychotropics. Assessment: Vital Signs/I&O: Vital Signs Date Time Temp Pulse Resp B/P (MAP) Pulse Ox O2 Delivery O2 Flow Rate FiO2 12/08/20 05:46 97.4 66 18 133/56 (81) 99 Room Air I & O 12/07/20 12/07/20 12/08/20 15:00 23:00 07:00 Intake Total 480 ml 360 ml Balance 480 ml 360 ml Current Medications: Meds: Current Medications Medications (Trade) Dose Ordered Sig/Brianne Route PRN Reason Start Time Stop Time Status Last Admin Dose Admin Lorazepam (Ativan) 1 mg STK-MED ONCE .ROUTE 12/02/20 14:25 12/02/20 14:25 DC Lorazepam (Ativan) 1 mg 1X ONCE PO 12/02/20 14:30 12/02/20 14:36 DC 12/02/20 14:31 Potassium/ Phosphorus/Sodium (Phos-Nak) 1 pkt 1X ONCE PO 12/02/20 15:00 12/02/20 15:01 Cancel Potassium Bicarbonate (Potassium Effervescent Tablet) 20 meq STK-MED ONCE .ROUTE 12/02/20 14:56 12/02/20 14:57 DC Potassium Bicarbonate (Potassium Effervescent Tablet) 20 meq 1X ONCE PO 12/02/20 15:00 12/02/20 15:01 DC 12/02/20 15:00 Acetaminophen (Tylenol) 650 mg PRN Q6HRS PRN PO MILD PAIN / TEMP > 100.3'F 12/02/20 15:45 Multi-Ingredient Ointment (Analgesic [place]) 1 itz PRN QID PRN TP MUSCLE PAIN 12/02/20 15:45 Al Hydroxide/Mg Hydroxide (Mylanta Plus Xs) 15 ml PRN AFTMEALHC PRN PO DYSPEPSIA 12/02/20 15:45 Magnesium Hydroxide (Milk Of Magnesia) 2,400 mg PRN QHS PRN PO CONSTIPATION 12/02/20 15:45 12/03/20 16:29 Lisinopril (Prinivil) 10 mg DAILY PO 12/03/20 09:00 12/07/20 08:25 Multivitamins/ Calcium (Thera-M Plus) 1 tab DAILY PO 12/03/20 09:00 12/07/20 08:27 Olanzapine (ZyPREXA ZYDIS) 2.5 mg PRN Q2HRS PRN PO PSYCHOSIS 12/02/20 17:00 12/07/20 17:28 Potassium Chloride (Klor-Con) 20 meq DAILYWBKFT PO 12/04/20 08:00 12/07/20 08:33 Sertraline HCl (Zoloft) 25 mg DAILY PO 12/04/20 09:00 12/06/20 21:00 DC 12/06/20 08:17 Sertraline HCl (Zoloft) 50 mg DAILY PO 12/07/20 09:00 12/07/20 08:27 Current Medications Medications (Trade) Dose Ordered Sig/Brianne Route PRN Reason Start Time Stop Time Status Last Admin Dose Admin Sertraline HCl (Zoloft) 50 mg DAILY PO 12/07/20 09:00 12/07/20 08:27 I have reviewed the current psychotropics carefully including drug interactions. Risk benefit ratio favors no change other than as noted in my dictated progress note. Diagnosis: Problems: (1) Major neurocognitive disorder (2) Impulse control disorder, unspecified (3) Anxiety disorder, unspecified (4) Dementia, vascular, with depression (5) Dementia, vascular, with delusions (6) Dementia in Alzheimer's disease with depression (7) Dementia in Alzheimer's disease with delusions (8) Dementia of the Alzheimer's type with early onset with behavioral disturbance EMILY CHARLES MD Dec 08, 2020 08:19
[2020-12-08] MEDS: LISINOPRIL 10 MG TABLET PO SCH (08:39)
[2020-12-08] MEDS: MULTIVITAMIN with MINERAL TABLET. PO SCH (08:39)
[2020-12-08] MEDS: SERTRALINE 50 MG TABLET. PO SCH (08:39)
--- NOTE | 2020-12-08 09:11 | PDOC ---
Exam Note: Earle Note: This note is a late entry for 12/07/2020 covers elements not covered in my initial note. Subjective: The patient was seen individually in the evening of 12/07/2020 with Drea APPIAH, discussed and reviewed the chart. The patient slept 8-1/2 hours previous night. She remains confused, wandering, walks into other patients rooms, oblivious of where she is, does redirect. She was anxious, restless, tearing up styrofoam cups earlier today. Review of Systems: Ambulation impaired. No CV, , pulmonary, eye system symptoms on review. Reliability poor. Mental Status Exam: The patient is oriented to herself. Insight and judgment, recent and remote memory, attention and concentration is poor consistent with her diagnoses. Laboratory Data: Reviewed. Impression: Major neurocognitive disorder Alzheimer vascular with delusion, depression, and behavioral disturbance. Anxiety disorder unspecified. Impulse control disorder unspecified. Plan: Continue current psychotropics. Assessment: Vital Signs/I&O: Vital Signs Date Time Temp Pulse Resp B/P (MAP) Pulse Ox O2 Delivery O2 Flow Rate FiO2 12/08/20 08:39 66 133/56 12/08/20 05:46 97.4 18 99 Room Air I & O 12/07/20 12/07/20 12/08/20 15:00 23:00 07:00 Intake Total 480 ml 360 ml Balance 480 ml 360 ml Current Medications: Meds: Current Medications Medications (Trade) Dose Ordered Sig/Brianne Route PRN Reason Start Time Stop Time Status Last Admin Dose Admin Lorazepam (Ativan) 1 mg STK-MED ONCE .ROUTE 12/02/20 14:25 12/02/20 14:25 DC Lorazepam (Ativan) 1 mg 1X ONCE PO 12/02/20 14:30 12/02/20 14:36 DC 12/02/20 14:31 Potassium/ Phosphorus/Sodium (Phos-Nak) 1 pkt 1X ONCE PO 12/02/20 15:00 12/02/20 15:01 Cancel Potassium Bicarbonate (Potassium Effervescent Tablet) 20 meq STK-MED ONCE .ROUTE 12/02/20 14:56 12/02/20 14:57 DC Potassium Bicarbonate (Potassium Effervescent Tablet) 20 meq 1X ONCE PO 12/02/20 15:00 12/02/20 15:01 DC 12/02/20 15:00 Acetaminophen (Tylenol) 650 mg PRN Q6HRS PRN PO MILD PAIN / TEMP > 100.3'F 12/02/20 15:45 Multi-Ingredient Ointment (Analgesic [place]) 1 itz PRN QID PRN TP MUSCLE PAIN 12/02/20 15:45 Al Hydroxide/Mg Hydroxide (Mylanta Plus Xs) 15 ml PRN AFTMEALHC PRN PO DYSPEPSIA 12/02/20 15:45 Magnesium Hydroxide (Milk Of Magnesia) 2,400 mg PRN QHS PRN PO CONSTIPATION 12/02/20 15:45 12/03/20 16:29 Lisinopril (Prinivil) 10 mg DAILY PO 12/03/20 09:00 12/08/20 08:39 Multivitamins/ Calcium (Thera-M Plus) 1 tab DAILY PO 12/03/20 09:00 12/08/20 08:39 Olanzapine (ZyPREXA ZYDIS) 2.5 mg PRN Q2HRS PRN PO PSYCHOSIS 12/02/20 17:00 12/07/20 17:28 Potassium Chloride (Klor-Con) 20 meq DAILYWBKFT PO 12/04/20 08:00 12/07/20 08:33 Sertraline HCl (Zoloft) 25 mg DAILY PO 12/04/20 09:00 12/06/20 21:00 DC 12/06/20 08:17 Sertraline HCl (Zoloft) 50 mg DAILY PO 12/07/20 09:00 12/08/20 08:39 I have reviewed the current psychotropics carefully including drug interactions. Risk benefit ratio favors no change other than as noted in my dictated progress note. Diagnosis: Problems: (1) Major neurocognitive disorder (2) Impulse control disorder, unspecified (3) Anxiety disorder, unspecified (4) Dementia, vascular, with depression (5) Dementia, vascular, with delusions (6) Dementia in Alzheimer's disease with depression (7) Dementia in Alzheimer's disease with delusions (8) Dementia of the Alzheimer's type with early onset with behavioral disturbance EMILY CHARLES MD Dec 08, 2020 09:11
[2020-12-08 15:25] VITALS: BP 110/64
[2020-12-08] MEDS ORDERED: QUEtiapine 25 MG TABLET. PO ONE (17:15)
--- NOTE | 2020-12-08 22:11 | PDOC ---
Exam Note: Earle Note: Please also refer to the separate dictated note~for this date of service dictated separately.~Patient seen individually. Discussed the patient with Nursing staff reviewed the chart.~Reviewed interim history and current functioning. Reviewed vital signs,~Labs/ Radiology~and current medications noted below. Continue current treatment with the changes noted in the dictated addendum note Assessment: Vital Signs/I&O: Vital Signs Date Time Temp Pulse Resp B/P (MAP) Pulse Ox O2 Delivery O2 Flow Rate FiO2 12/08/20 15:25 97.4 72 18 110/64 (79) 97 12/08/20 05:46 Room Air I & O 12/07/20 12/07/20 12/08/20 15:00 23:00 07:00 Intake Total 480 ml 360 ml Balance 480 ml 360 ml Current Medications: Meds: Current Medications Medications (Trade) Dose Ordered Sig/Brianne Route PRN Reason Start Time Stop Time Status Last Admin Dose Admin Lorazepam (Ativan) 1 mg STK-MED ONCE .ROUTE 12/02/20 14:25 12/02/20 14:25 DC Lorazepam (Ativan) 1 mg 1X ONCE PO 12/02/20 14:30 12/02/20 14:36 DC 12/02/20 14:31 Potassium/ Phosphorus/Sodium (Phos-Nak) 1 pkt 1X ONCE PO 12/02/20 15:00 12/02/20 15:01 Cancel Potassium Bicarbonate (Potassium Effervescent Tablet) 20 meq STK-MED ONCE .ROUTE 12/02/20 14:56 12/02/20 14:57 DC Potassium Bicarbonate (Potassium Effervescent Tablet) 20 meq 1X ONCE PO 12/02/20 15:00 12/02/20 15:01 DC 12/02/20 15:00 Acetaminophen (Tylenol) 650 mg PRN Q6HRS PRN PO MILD PAIN / TEMP > 100.3'F 12/02/20 15:45 Multi-Ingredient Ointment (Analgesic [place]) 1 itz PRN QID PRN TP MUSCLE PAIN 12/02/20 15:45 Al Hydroxide/Mg Hydroxide (Mylanta Plus Xs) 15 ml PRN AFTMEALHC PRN PO DYSPEPSIA 12/02/20 15:45 Magnesium Hydroxide (Milk Of Magnesia) 2,400 mg PRN QHS PRN PO CONSTIPATION 12/02/20 15:45 6/15/21 16:29 Lisinopril (Prinivil) 10 mg DAILY PO 12/03/20 09:00 12/08/20 08:39 Multivitamins/ Calcium (Thera-M Plus) 1 tab DAILY PO 12/03/20 09:00 12/08/20 08:39 Olanzapine (ZyPREXA ZYDIS) 2.5 mg PRN Q2HRS PRN PO PSYCHOSIS 12/02/20 17:00 12/07/20 17:28 Potassium Chloride (Klor-Con) 20 meq DAILYWBKFT PO 12/04/20 08:00 12/07/20 08:33 Sertraline HCl (Zoloft) 25 mg DAILY PO 12/04/20 09:00 12/06/20 21:00 DC 12/06/20 08:17 Sertraline HCl (Zoloft) 50 mg DAILY PO 12/07/20 09:00 12/08/20 08:39 Quetiapine Fumarate (SEROquel) 12.5 mg 0900 PO 12/09/20 09:00 Quetiapine Fumarate (SEROquel) 12.5 mg ONCE ONCE PO 12/08/20 17:15 12/08/20 17:16 DC 12/08/20 17:15 Current Medications Medications (Trade) Dose Ordered Sig/Brianne Route PRN Reason Start Time Stop Time Status Last Admin Dose Admin Quetiapine Fumarate (SEROquel) 12.5 mg ONCE ONCE PO 12/08/20 17:15 12/08/20 17:16 DC 12/08/20 17:15 I have reviewed the current psychotropics carefully including drug interactions. Risk benefit ratio favors no change other than as noted in my dictated progress note. Diagnosis: Problems: (1) Major neurocognitive disorder (2) Impulse control disorder, unspecified (3) Anxiety disorder, unspecified (4) Dementia, vascular, with depression (5) Dementia, vascular, with delusions (6) Dementia in Alzheimer's disease with depression (7) Dementia in Alzheimer's disease with delusions (8) Dementia of the Alzheimer's type with early onset with behavioral disturbance EMILY CHARLES MD Dec 08, 2020 22:11
[2020-12-09 05:50] VITALS: BP 140/82
[2020-12-09] MEDS: SERTRALINE 50 MG TABLET. PO SCH (08:36)
[2020-12-09] MEDS: MULTIVITAMIN with MINERAL TABLET. PO SCH (08:36)
[2020-12-09] MEDS: LISINOPRIL 10 MG TABLET PO SCH (08:36)
[2020-12-09] MEDS: POTASSIUM CHLORIDE 20 MEQ TABLET.ER. PO SCH (08:36)
[2020-12-09] MEDS: QUEtiapine 25 MG TABLET. PO SCH ×2 (08:37→18:13)
--- NOTE | 2020-12-09 08:46 | PDOC ---
Exam Note: Earle Note: This note is a late entry for 12/08/2020 covers elements not covered in my initial note. Subjective: The patient was seen individually in the evening of 12/08/2020 with Tiffany APPIAH, discussed and reviewed the chart. The patient slept 5-1/2 hours previous night. She has been fidgety, intrusive, tales meds in pudding and the spits it out frequently. Speech is garbled. She is extremely overactive, running up and down the hallways, especially she sees exit door opening. Review of Systems: Ambulation impaired. No CV, , pulmonary, eye system symptoms on review. Reliability poor. Mental Status Exam: The patient is oriented to herself. Insight and judgment, recent and remote memory, attention and concentration is poor consistent with her diagnoses. Laboratory Data: Reviewed. Impression: Major neurocognitive disorder Alzheimer vascular with delusion, depression, and behavioral disturbance. Anxiety disorder unspecified. Impulse control disorder unspecified. Plan: Continue current psychotropics. Start Seroquel 12.5 mg 9 a.m. and 9 p.m. Maintain Zoloft 50 mg a day. Adjust further as clinically indicated. Assessment: Vital Signs/I&O: Vital Signs Date Time Temp Pulse Resp B/P (MAP) Pulse Ox O2 Delivery O2 Flow Rate FiO2 12/09/20 08:36 112 140/82 12/09/20 05:50 96.7 18 90 12/08/20 05:46 Room Air I & O 12/08/20 12/08/20 12/09/20 14:59 22:59 06:59 Intake Total 360 ml 360 ml Balance 360 ml 360 ml Current Medications: Meds: Current Medications Medications (Trade) Dose Ordered Sig/Brianne Route PRN Reason Start Time Stop Time Status Last Admin Dose Admin Lorazepam (Ativan) 1 mg STK-MED ONCE .ROUTE 12/02/20 14:25 12/02/20 14:25 DC Lorazepam (Ativan) 1 mg 1X ONCE PO 12/02/20 14:30 12/02/20 14:36 DC 12/02/20 14:31 Potassium/ Phosphorus/Sodium (Phos-Nak) 1 pkt 1X ONCE PO 12/02/20 15:00 12/02/20 15:01 Cancel Potassium Bicarbonate (Potassium Effervescent Tablet) 20 meq STK-MED ONCE .ROUTE 12/02/20 14:56 12/02/20 14:57 DC Potassium Bicarbonate (Potassium Effervescent Tablet) 20 meq 1X ONCE PO 12/02/20 15:00 12/02/20 15:01 DC 12/02/20 15:00 Acetaminophen (Tylenol) 650 mg PRN Q6HRS PRN PO MILD PAIN / TEMP > 100.3'F 12/02/20 15:45 Multi-Ingredient Ointment (Analgesic [place]) 1 itz PRN QID PRN TP MUSCLE PAIN 12/02/20 15:45 Al Hydroxide/Mg Hydroxide (Mylanta Plus Xs) 15 ml PRN AFTMEALHC PRN PO DYSPEPSIA 12/02/20 15:45 Magnesium Hydroxide (Milk Of Magnesia) 2,400 mg PRN QHS PRN PO CONSTIPATION 12/02/20 15:45 12/03/20 16:29 Lisinopril (Prinivil) 10 mg DAILY PO 12/03/20 09:00 12/09/20 08:36 Multivitamins/ Calcium (Thera-M Plus) 1 tab DAILY PO 12/03/20 09:00 12/09/20 08:36 Olanzapine (ZyPREXA ZYDIS) 2.5 mg PRN Q2HRS PRN PO PSYCHOSIS 12/02/20 17:00 12/07/20 17:28 Potassium Chloride (Klor-Con) 20 meq DAILYWBKFT PO 12/04/20 08:00 12/09/20 08:36 Sertraline HCl (Zoloft) 25 mg DAILY PO 12/04/20 09:00 12/06/20 21:00 DC 12/06/20 08:17 Sertraline HCl (Zoloft) 50 mg DAILY PO 12/07/20 09:00 12/09/20 08:36 Quetiapine Fumarate (SEROquel) 12.5 mg 0900 PO 12/09/20 09:00 12/09/20 08:37 Quetiapine Fumarate (SEROquel) 12.5 mg ONCE ONCE PO 12/08/20 17:15 12/08/20 17:16 DC 12/08/20 17:15 Current Medications Medications (Trade) Dose Ordered Sig/Brianne Route PRN Reason Start Time Stop Time Status Last Admin Dose Admin Quetiapine Fumarate (SEROquel) 12.5 mg 0900 PO 12/09/20 09:00 12/09/20 08:37 Quetiapine Fumarate (SEROquel) 12.5 mg ONCE ONCE PO 12/08/20 17:15 12/08/20 17:16 DC 12/08/20 17:15 I have reviewed the current psychotropics carefully including drug interactions. Risk benefit ratio favors no change other than as noted in my dictated progress note. Diagnosis: Problems: (1) Major neurocognitive disorder (2) Impulse control disorder, unspecified (3) Anxiety disorder, unspecified (4) Dementia, vascular, with depression (5) Dementia, vascular, with delusions (6) Dementia in Alzheimer's disease with depression (7) Dementia in Alzheimer's disease with delusions (8) Dementia of the Alzheimer's type with early onset with behavioral disturbance EMILY CHARLES MD Dec 09, 2020 08:46
[2020-12-09 13:10] LABS: BASO # 0.1 x10^3/uL (0.0-0.2); BASO % 1 % (0-3); EOS % 0 % (0-3); HEMATOCRIT 36.1 % (36.0-47.0); HEMOGLOBIN 12.5 g/dL (12.0-15.5); LYMPH # 1.2 x10^3/uL (1.0-4.8); LYMPH % 14 % (24-48); MEAN CORPUSCULAR HEMOGLOBIN 32 pg (25-35); MEAN CORPUSCULAR HGB CONC 35 g/dL (31-37); MEAN CORPUSCULAR VOLUME 92 fL (79-100); MONO # 0.7 x10^3/uL (0.0-1.1); MONO % 7 % (0-9); NEUT % 78 % (31-73); PLATELET COUNT 258 x10^3/uL (140-400); RED BLOOD COUNT 3.91 x10^6/uL (3.50-5.40); RED CELL DISTRIBUTION WIDTH 12.8 % (11.5-14.5)
[2020-12-09 13:26] LABS: ALBUMIN 4.3 g/dL (3.4-5.0); ALBUMIN/GLOBULIN RATIO 1.3 (1.0-1.7); CALCIUM 9.7 mg/dL (8.5-10.1); CREATININE 1.3 mg/dL (0.6-1.0); GFR 39.1; TOTAL BILIRUBIN 0.7 mg/dL (0.2-1.0); TOTAL PROTEIN 7.6 g/dL (6.4-8.2)
[2020-12-09 15:35] VITALS: BP 119/74
--- NOTE | 2020-12-09 21:57 | PDOC ---
Exam Note: Earle Note: Please also refer to the separate dictated note~for this date of service dictated separately.~Patient seen individually. Discussed the patient with Nursing staff reviewed the chart.~Reviewed interim history and current functioning. Reviewed vital signs,~Labs/ Radiology~and current medications noted below. Continue current treatment with the changes noted in the dictated addendum note Assessment: Vital Signs/I&O: Vital Signs Date Time Temp Pulse Resp B/P (MAP) Pulse Ox O2 Delivery O2 Flow Rate FiO2 12/09/20 15:35 97.3 74 18 119/74 (89) 96 12/08/20 05:46 Room Air I & O 12/08/20 12/08/20 12/09/20 14:59 22:59 06:59 Intake Total 360 ml 360 ml Balance 360 ml 360 ml Labs: Laboratory Tests Test 12/09/20 13:03 White Blood Count 9.0 x10^3/uL (4.0-11.0) Red Blood Count 3.91 x10^6/uL (3.50-5.40) Hemoglobin 12.5 g/dL (12.0-15.5) Hematocrit 36.1 % (36.0-47.0) Mean Corpuscular Volume 92 fL (79-100) Mean Corpuscular Hemoglobin 32 pg (25-35) Mean Corpuscular Hemoglobin Concent 35 g/dL (31-37) Red Cell Distribution Width 12.8 % (11.5-14.5) Platelet Count 258 x10^3/uL (140-400) Neutrophils (%) (Auto) 78 % (31-73) H Lymphocytes (%) (Auto) 14 % (24-48) L Monocytes (%) (Auto) 7 % (0-9) Eosinophils (%) (Auto) 0 % (0-3) Basophils (%) (Auto) 1 % (0-3) Neutrophils # (Auto) 7.0 x10^3uL (1.8-7.7) Lymphocytes # (Auto) 1.2 x10^3/uL (1.0-4.8) Monocytes # (Auto) 0.7 x10^3/uL (0.0-1.1) Eosinophils # (Auto) 0.0 x10^3/uL (0.0-0.7) Basophils # (Auto) 0.1 x10^3/uL (0.0-0.2) Sodium Level 135 mmol/L (136-145) L Potassium Level 4.0 mmol/L (3.5-5.1) Chloride Level 101 mmol/L (98-107) Carbon Dioxide Level 26 mmol/L (21-32) Anion Gap 8 (6-14) Blood Urea Nitrogen 24 mg/dL (7-20) H Creatinine 1.3 mg/dL (0.6-1.0) H Estimated GFR (Cockcroft-Gault) 39.1 BUN/Creatinine Ratio 18 (6-20) Glucose Level 114 mg/dL (70-99) H Calcium Level 9.7 mg/dL (8.5-10.1) Total Bilirubin 0.7 mg/dL (0.2-1.0) Aspartate Amino Transferase (AST) 24 U/L (15-37) Alanine Aminotransferase (ALT) 32 U/L (14-59) Alkaline Phosphatase 77 U/L (46-116) Total Protein 7.6 g/dL (6.4-8.2) Albumin 4.3 g/dL (3.4-5.0) Albumin/Globulin Ratio 1.3 (1.0-1.7) Current Medications: Meds: Laboratory Tests Test 12/09/20 13:03 White Blood Count 9.0 x10^3/uL Red Blood Count 3.91 x10^6/uL Hemoglobin 12.5 g/dL Hematocrit 36.1 % Mean Corpuscular Volume 92 fL Mean Corpuscular Hemoglobin 32 pg Mean Corpuscular Hemoglobin Concent 35 g/dL Red Cell Distribution Width 12.8 % Platelet Count 258 x10^3/uL Neutrophils (%) (Auto) 78 % Lymphocytes (%) (Auto) 14 % Monocytes (%) (Auto) 7 % Eosinophils (%) (Auto) 0 % Basophils (%) (Auto) 1 % Neutrophils # (Auto) 7.0 x10^3uL Lymphocytes # (Auto) 1.2 x10^3/uL Monocytes # (Auto) 0.7 x10^3/uL Eosinophils # (Auto) 0.0 x10^3/uL Basophils # (Auto) 0.1 x10^3/uL Sodium Level 135 mmol/L Potassium Level 4.0 mmol/L Chloride Level 101 mmol/L Carbon Dioxide Level 26 mmol/L Anion Gap 8 Blood Urea Nitrogen 24 mg/dL Creatinine 1.3 mg/dL Estimated GFR (Cockcroft-Gault) 39.1 BUN/Creatinine Ratio 18 Glucose Level 114 mg/dL Calcium Level 9.7 mg/dL Total Bilirubin 0.7 mg/dL Aspartate Amino Transf (AST/SGOT) 24 U/L Alanine Aminotransferase (ALT/SGPT) 32 U/L Alkaline Phosphatase 77 U/L Total Protein 7.6 g/dL Albumin 4.3 g/dL Albumin/Globulin Ratio 1.3 Current Medications Medications (Trade) Dose Ordered Sig/Brianne Route PRN Reason Start Time Stop Time Status Last Admin Dose Admin Lorazepam (Ativan) 1 mg STK-MED ONCE .ROUTE 12/02/20 14:25 12/02/20 14:25 DC Lorazepam (Ativan) 1 mg 1X ONCE PO 12/02/20 14:30 12/02/20 14:36 DC 12/02/20 14:31 Potassium/ Phosphorus/Sodium (Phos-Nak) 1 pkt 1X ONCE PO 12/02/20 15:00 12/02/20 15:01 Cancel Potassium Bicarbonate (Potassium Effervescent Tablet) 20 meq STK-MED ONCE .ROUTE 12/02/20 14:56 12/02/20 14:57 DC Potassium Bicarbonate (Potassium Effervescent Tablet) 20 meq 1X ONCE PO 12/02/20 15:00 12/02/20 15:01 DC 12/02/20 15:00 Acetaminophen (Tylenol) 650 mg PRN Q6HRS PRN PO MILD PAIN / TEMP > 100.3'F 12/02/20 15:45 Multi-Ingredient Ointment (Analgesic [place]) 1 itz PRN QID PRN TP MUSCLE PAIN 12/02/20 15:45 Al Hydroxide/Mg Hydroxide (Mylanta Plus Xs) 15 ml PRN AFTMEALHC PRN PO DYSPEPSIA 12/02/20 15:45 Magnesium Hydroxide (Milk Of Magnesia) 2,400 mg PRN QHS PRN PO CONSTIPATION 12/02/20 15:45 12/03/20 16:29 Lisinopril (Prinivil) 10 mg DAILY PO 12/03/20 09:00 12/09/20 08:36 Multivitamins/ Calcium (Thera-M Plus) 1 tab DAILY PO 12/03/20 09:00 12/09/20 08:36 Olanzapine (ZyPREXA ZYDIS) 2.5 mg PRN Q2HRS PRN PO PSYCHOSIS 12/02/20 17:00 12/09/20 09:06 Potassium Chloride (Klor-Con) 20 meq DAILYWBKFT PO 12/04/20 08:00 12/09/20 08:36 Sertraline HCl (Zoloft) 25 mg DAILY PO 12/04/20 09:00 12/06/20 21:00 DC 12/06/20 08:17 Sertraline HCl (Zoloft) 50 mg DAILY PO 12/07/20 09:00 12/09/20 08:36 Quetiapine Fumarate (SEROquel) 12.5 mg 0900 PO 12/09/20 09:00 12/09/20 08:37 Quetiapine Fumarate (SEROquel) 12.5 mg ONCE ONCE PO 12/08/20 17:15 12/08/20 17:16 DC 12/08/20 17:15 Quetiapine Fumarate (SEROquel) 12.5 mg 1700 PO 12/09/20 18:00 12/09/20 18:13 Current Medications Medications (Trade) Dose Ordered Sig/Brianne Route PRN Reason Start Time Stop Time Status Last Admin Dose Admin Quetiapine Fumarate (SEROquel) 12.5 mg 0900 PO 12/09/20 09:00 12/09/20 08:37 Quetiapine Fumarate (SEROquel) 12.5 mg 1700 PO 12/09/20 18:00 12/09/20 18:13 I have reviewed the current psychotropics carefully including drug interactions. Risk benefit ratio favors no change other than as noted in my dictated progress note. Diagnosis: Problems: (1) Major neurocognitive disorder (2) Impulse control disorder, unspecified (3) Anxiety disorder, unspecified (4) Dementia, vascular, with depression (5) Dementia, vascular, with delusions (6) Dementia in Alzheimer's disease with depression (7) Dementia in Alzheimer's disease with delusions (8) Dementia of the Alzheimer's type with early onset with behavioral disturbance EMILY CHARLES MD Dec 09, 2020 21:57
[2020-12-10 06:20] VITALS: BP 117/73
[2020-12-10] MEDS: POTASSIUM CHLORIDE 20 MEQ TABLET.ER. PO SCH (08:00)
[2020-12-10] MEDS: LISINOPRIL 10 MG TABLET PO SCH (08:59)
[2020-12-10] MEDS: MULTIVITAMIN with MINERAL TABLET. PO SCH (09:00)
[2020-12-10] MEDS: SERTRALINE 50 MG TABLET. PO SCH (09:00)
[2020-12-10] MEDS: QUEtiapine 25 MG TABLET. PO SCH ×2 (09:00→14:19)
[2020-12-10 15:56] VITALS: BP 118/64
--- NOTE | 2020-12-10 22:03 | PDOC ---
Exam Note: Earle Note: Please also refer to the separate dictated note~for this date of service dictated separately.~Patient seen individually. Discussed the patient with Nursing staff reviewed the chart.~Reviewed interim history and current functioning. Reviewed vital signs,~Labs/ Radiology~and current medications noted below. Continue current treatment with the changes noted in the dictated addendum note Assessment: Vital Signs/I&O: Vital Signs Date Time Temp Pulse Resp B/P (MAP) Pulse Ox O2 Delivery O2 Flow Rate FiO2 12/10/20 15:56 97.0 100 18 118/64 (82) 98 12/08/20 05:46 Room Air I & O 12/09/20 12/09/20 12/10/20 15:00 23:00 07:00 Intake Total 200 ml 0 ml 0 ml Balance 200 ml 0 ml 0 ml Current Medications: Meds: Current Medications Medications (Trade) Dose Ordered Sig/Brianne Route PRN Reason Start Time Stop Time Status Last Admin Dose Admin Lorazepam (Ativan) 1 mg STK-MED ONCE .ROUTE 12/02/20 14:25 12/02/20 14:25 DC Lorazepam (Ativan) 1 mg 1X ONCE PO 12/02/20 14:30 12/02/20 14:36 DC 12/02/20 14:31 Potassium/ Phosphorus/Sodium (Phos-Nak) 1 pkt 1X ONCE PO 12/02/20 15:00 12/02/20 15:01 Cancel Potassium Bicarbonate (Potassium Effervescent Tablet) 20 meq STK-MED ONCE .ROUTE 12/02/20 14:56 12/02/20 14:57 DC Potassium Bicarbonate (Potassium Effervescent Tablet) 20 meq 1X ONCE PO 12/02/20 15:00 12/02/20 15:01 DC 12/02/20 15:00 Acetaminophen (Tylenol) 650 mg PRN Q6HRS PRN PO MILD PAIN / TEMP > 100.3'F 12/02/20 15:45 Multi-Ingredient Ointment (Analgesic [place]) 1 itz PRN QID PRN TP MUSCLE PAIN 12/02/20 15:45 Al Hydroxide/Mg Hydroxide (Mylanta Plus Xs) 15 ml PRN AFTMEALHC PRN PO DYSPEPSIA 12/02/20 15:45 Magnesium Hydroxide (Milk Of Magnesia) 2,400 mg PRN QHS PRN PO CONSTIPATION 12/02/20 15:45 12/03/20 16:29 Lisinopril (Prinivil) 10 mg DAILY PO 12/03/20 09:00 12/09/20 08:36 Multivitamins/ Calcium (Thera-M Plus) 1 tab DAILY PO 12/03/20 09:00 12/09/20 08:36 Olanzapine (ZyPREXA ZYDIS) 2.5 mg PRN Q2HRS PRN PO PSYCHOSIS 12/02/20 17:00 12/10/20 14:19 Potassium Chloride (Klor-Con) 20 meq DAILYWBKFT PO 12/04/20 08:00 12/09/20 08:36 Sertraline HCl (Zoloft) 25 mg DAILY PO 12/04/20 09:00 12/06/20 21:00 DC 12/06/20 08:17 Sertraline HCl (Zoloft) 50 mg DAILY PO 12/07/20 09:00 12/10/20 09:00 Quetiapine Fumarate (SEROquel) 12.5 mg 0900 PO 12/09/20 09:00 12/10/20 16:51 DC 12/10/20 09:00 Quetiapine Fumarate (SEROquel) 12.5 mg ONCE ONCE PO 12/08/20 17:15 12/08/20 17:16 DC 12/08/20 17:15 Quetiapine Fumarate (SEROquel) 12.5 mg 1700 PO 12/09/20 18:00 12/10/20 14:19 Quetiapine Fumarate (SEROquel) 25 mg 0900 PO 12/11/20 09:00 I have reviewed the current psychotropics carefully including drug interactions. Risk benefit ratio favors no change other than as noted in my dictated progress note. Diagnosis: Problems: (1) Major neurocognitive disorder (2) Impulse control disorder, unspecified (3) Anxiety disorder, unspecified (4) Dementia, vascular, with depression (5) Dementia, vascular, with delusions (6) Dementia in Alzheimer's disease with depression (7) Dementia in Alzheimer's disease with delusions (8) Dementia of the Alzheimer's type with early onset with behavioral disturbance EMILY CHARLES MD Dec 10, 2020 22:03
[2020-12-11 05:51] VITALS: BP 128/78
[2020-12-11] MEDS: POTASSIUM CHLORIDE 20 MEQ TABLET.ER. PO SCH (08:00)
--- NOTE | 2020-12-11 08:08 | PDOC ---
Exam Note: Earle Note: This note is a late entry for 12/09/2020 covers elements not covered in my initial note. Subjective: The patient was seen individually in the evening of 12/09/2020 with Tiffany APPIAH, discussed and reviewed the chart. The patient slept 5 hours previous night. She remains confused, combative, hitting. Received Zyprexa p.r.n., had to be syringed, takes her meds crushed in puddings, frequently spits it out. Review of Systems: Ambulation impaired. No CV, , pulmonary, eye system symptoms on review. Reliability poor. Mental Status Exam: The patient is oriented to herself. Insight and judgment, recent and remote memory, attention and concentration is poor consistent with her diagnoses. Laboratory Data: Reviewed. Impression: Major neurocognitive disorder Alzheimer vascular with delusion, depression, and behavioral disturbance. Anxiety disorder unspecified. Impulse control disorder unspecified. Plan: Continue current psychotropics. Increase Seroquel from 12.5 mg 9 a.m. to 12.5 mg 9 p.m. and 5 p.m. Consider low dose Depakote as a mood stabilizer. She is extremely restless, constantly moving. Assessment: Vital Signs/I&O: Vital Signs Date Time Temp Pulse Resp B/P (MAP) Pulse Ox O2 Delivery O2 Flow Rate FiO2 12/11/20 05:51 97.4 75 16 128/78 (95) 95 12/08/20 05:46 Room Air I & O 12/10/20 12/10/20 12/11/20 15:00 23:00 07:00 Intake Total 480 ml 240 ml 120 ml Balance 480 ml 240 ml 120 ml Current Medications: Meds: Current Medications Medications (Trade) Dose Ordered Sig/Brianne Route PRN Reason Start Time Stop Time Status Last Admin Dose Admin Lorazepam (Ativan) 1 mg STK-MED ONCE .ROUTE 12/02/20 14:25 12/02/20 14:25 DC Lorazepam (Ativan) 1 mg 1X ONCE PO 12/02/20 14:30 12/02/20 14:36 DC 12/02/20 14:31 Potassium/ Phosphorus/Sodium (Phos-Nak) 1 pkt 1X ONCE PO 12/02/20 15:00 12/02/20 15:01 Cancel Potassium Bicarbonate (Potassium Effervescent Tablet) 20 meq STK-MED ONCE .ROUTE 12/02/20 14:56 12/02/20 14:57 DC Potassium Bicarbonate (Potassium Effervescent Tablet) 20 meq 1X ONCE PO 12/02/20 15:00 12/02/20 15:01 DC 12/02/20 15:00 Acetaminophen (Tylenol) 650 mg PRN Q6HRS PRN PO MILD PAIN / TEMP > 100.3'F 12/02/20 15:45 Multi-Ingredient Ointment (Analgesic [place]) 1 itz PRN QID PRN TP MUSCLE PAIN 12/02/20 15:45 Al Hydroxide/Mg Hydroxide (Mylanta Plus Xs) 15 ml PRN AFTMEALHC PRN PO DYSPEPSIA 12/02/20 15:45 Magnesium Hydroxide (Milk Of Magnesia) 2,400 mg PRN QHS PRN PO CONSTIPATION 12/02/20 15:45 12/03/20 16:29 Lisinopril (Prinivil) 10 mg DAILY PO 12/03/20 09:00 12/09/20 08:36 Multivitamins/ Calcium (Thera-M Plus) 1 tab DAILY PO 12/03/20 09:00 12/09/20 08:36 Olanzapine (ZyPREXA ZYDIS) 2.5 mg PRN Q2HRS PRN PO PSYCHOSIS 12/02/20 17:00 12/10/20 14:19 Potassium Chloride (Klor-Con) 20 meq DAILYWBKFT PO 12/04/20 08:00 12/09/20 08:36 Sertraline HCl (Zoloft) 25 mg DAILY PO 12/04/20 09:00 12/06/20 21:00 DC 12/06/20 08:17 Sertraline HCl (Zoloft) 50 mg DAILY PO 12/07/20 09:00 12/10/20 09:00 Quetiapine Fumarate (SEROquel) 12.5 mg 0900 PO 12/09/20 09:00 12/10/20 16:51 DC 12/10/20 09:00 Quetiapine Fumarate (SEROquel) 12.5 mg ONCE ONCE PO 12/08/20 17:15 12/08/20 17:16 DC 12/08/20 17:15 Quetiapine Fumarate (SEROquel) 12.5 mg 1700 PO 12/09/20 18:00 12/10/20 14:19 Quetiapine Fumarate (SEROquel) 25 mg 0900 PO 12/11/20 09:00 I have reviewed the current psychotropics carefully including drug interactions. Risk benefit ratio favors no change other than as noted in my dictated progress note. Diagnosis: Problems: (1) Major neurocognitive disorder (2) Impulse control disorder, unspecified (3) Anxiety disorder, unspecified (4) Dementia, vascular, with depression (5) Dementia, vascular, with delusions (6) Dementia in Alzheimer's disease with depression (7) Dementia in Alzheimer's disease with delusions (8) Dementia of the Alzheimer's type with early onset with behavioral disturbance EMILY CHARLES MD Dec 11, 2020 08:08
--- NOTE | 2020-12-11 08:24 | PDOC ---
Exam Note: Earle Note: This note is a late entry for 12/10/2020 covers elements not covered in my initial note. Subjective: The patient was seen individually in the evening of 12/10/2020 with Tiffany APPIAH, discussed and reviewed the chart. The patient slept 5 hours previous night. She remains confused, combative last night, biting the staffs, pulling almonte out of the flower bed, screeching and screaming, difficult to redirect. Today she has been running up and down the hallway, unable to still long enough to eat her meals and we will change to finger foods. Received Zyprexa twice ar ound breakfast and 1 p.m. and we will increase the a.m. Seroquel to 25 mg. Maintain 12.5 mg at noon. Rest unchanged. Review of Systems: Ambulation impaired. No CV, , pulmonary, eye system symptoms on review. Reliability poor. Mental Status Exam: The patient is oriented to herself. Insight and judgment, recent and remote memory, attention and concentration is poor consistent with her diagnoses. Laboratory Data: Reviewed. Impression: Major neurocognitive disorder Alzheimer vascular with delusion, depression, and behavioral disturbance. Anxiety disorder unspecified. Impulse control disorder unspecified. Plan: Continue current psychotropics. Adjust further as clinically indicated. Assessment: Vital Signs/I&O: Vital Signs Date Time Temp Pulse Resp B/P (MAP) Pulse Ox O2 Delivery O2 Flow Rate FiO2 12/11/20 05:51 97.4 75 16 128/78 (95) 95 12/08/20 05:46 Room Air I & O 12/10/20 12/10/20 12/11/20 15:00 23:00 07:00 Intake Total 480 ml 240 ml 120 ml Balance 480 ml 240 ml 120 ml Current Medications: Meds: Current Medications Medications (Trade) Dose Ordered Sig/Brianne Route PRN Reason Start Time Stop Time Status Last Admin Dose Admin Lorazepam (Ativan) 1 mg STK-MED ONCE .ROUTE 12/02/20 14:25 12/02/20 14:25 DC Lorazepam (Ativan) 1 mg 1X ONCE PO 12/02/20 14:30 12/02/20 14:36 DC 12/02/20 14:31 Potassium/ Phosphorus/Sodium (Phos-Nak) 1 pkt 1X ONCE PO 12/02/20 15:00 12/02/20 15:01 Cancel Potassium Bicarbonate (Potassium Effervescent Tablet) 20 meq STK-MED ONCE .ROUTE 12/02/20 14:56 12/02/20 14:57 DC Potassium Bicarbonate (Potassium Effervescent Tablet) 20 meq 1X ONCE PO 12/02/20 15:00 12/02/20 15:01 DC 12/02/20 15:00 Acetaminophen (Tylenol) 650 mg PRN Q6HRS PRN PO MILD PAIN / TEMP > 100.3'F 12/02/20 15:45 Multi-Ingredient Ointment (Analgesic [place]) 1 itz PRN QID PRN TP MUSCLE PAIN 12/02/20 15:45 Al Hydroxide/Mg Hydroxide (Mylanta Plus Xs) 15 ml PRN AFTMEALHC PRN PO DYSPEPSIA 12/02/20 15:45 Magnesium Hydroxide (Milk Of Magnesia) 2,400 mg PRN QHS PRN PO CONSTIPATION 12/02/20 15:45 12/03/20 16:29 Lisinopril (Prinivil) 10 mg DAILY PO 12/03/20 09:00 12/09/20 08:36 Multivitamins/ Calcium (Thera-M Plus) 1 tab DAILY PO 12/03/20 09:00 12/09/20 08:36 Olanzapine (ZyPREXA ZYDIS) 2.5 mg PRN Q2HRS PRN PO PSYCHOSIS 12/02/20 17:00 12/10/20 14:19 Potassium Chloride (Klor-Con) 20 meq DAILYWBKFT PO 12/04/20 08:00 12/09/20 08:36 Sertraline HCl (Zoloft) 25 mg DAILY PO 12/04/20 09:00 12/06/20 21:00 DC 12/06/20 08:17 Sertraline HCl (Zoloft) 50 mg DAILY PO 12/07/20 09:00 12/10/20 09:00 Quetiapine Fumarate (SEROquel) 12.5 mg 0900 PO 12/09/20 09:00 12/10/20 16:51 DC 12/10/20 09:00 Quetiapine Fumarate (SEROquel) 12.5 mg ONCE ONCE PO 12/08/20 17:15 12/08/20 17:16 DC 12/08/20 17:15 Quetiapine Fumarate (SEROquel) 12.5 mg 1700 PO 12/09/20 18:00 12/10/20 14:19 Quetiapine Fumarate (SEROquel) 25 mg 0900 PO 12/11/20 09:00 I have reviewed the current psychotropics carefully including drug interactions. Risk benefit ratio favors no change other than as noted in my dictated progress note. Diagnosis: Problems: (1) Major neurocognitive disorder (2) Impulse control disorder, unspecified (3) Anxiety disorder, unspecified (4) Dementia, vascular, with depression (5) Dementia, vascular, with delusions (6) Dementia in Alzheimer's disease with depression (7) Dementia in Alzheimer's disease with delusions (8) Dementia of the Alzheimer's type with early onset with behavioral disturbance EMILY CHARLES MD Dec 11, 2020 08:24
[2020-12-11] MEDS: MULTIVITAMIN with MINERAL TABLET. PO SCH (08:53)
[2020-12-11] MEDS: LISINOPRIL 10 MG TABLET PO SCH (08:53)
[2020-12-11] MEDS: QUEtiapine 25 MG TABLET. PO SCH ×2 (09:00→17:53)
[2020-12-11] MEDS: SERTRALINE 50 MG TABLET. PO SCH (09:00)
[2020-12-11 16:00] VITALS: BP 132/73
[2020-12-11 18:17] LABS: BILIRUBIN,URINE SMALL (NEG); CLARITY,URINE CLOUDY; COLOR,URINE YELLOW; GLUCOSE,URINE NEG (NEG); NITRITE,URINE NEG (NEG); UROBILINOGEN,URINE 0.2 mg/dL (0.2 mg/dL)
--- NOTE | 2020-12-11 21:56 | PDOC ---
Exam Note: Earle Note: Please also refer to the separate dictated note~for this date of service dictated separately.~Patient seen individually. Discussed the patient with Nursing staff reviewed the chart.~Reviewed interim history and current functioning. Reviewed vital signs,~Labs/ Radiology~and current medications noted below. Continue current treatment with the changes noted in the dictated addendum note Assessment: Vital Signs/I&O: Vital Signs Date Time Temp Pulse Resp B/P (MAP) Pulse Ox O2 Delivery O2 Flow Rate FiO2 12/11/20 16:00 96.7 71 18 132/73 (92) 93 12/08/20 05:46 Room Air I & O 12/10/20 12/10/20 12/11/20 15:00 23:00 07:00 Intake Total 480 ml 240 ml 120 ml Balance 480 ml 240 ml 120 ml Labs: Laboratory Tests Test 12/11/20 18:00 Urine Collection Type Unknown Urine Color Yellow Urine Clarity Cloudy Urine pH 5.5 Urine Specific [place] >=1.030 Urine Protein Neg (NEG-TRACE) Urine Glucose (UA) Neg mg/dL (NEG) Urine Ketones (Stick) 15 mg/dL (NEG) Urine Blood Small (NEG) Urine Nitrite Neg (NEG) Urine Bilirubin Small (NEG) Urine Urobilinogen Dipstick 0.2 mg/dL (0.2 mg/dL) Urine Leukocyte Esterase Small (NEG) Current Medications: Meds: Laboratory Tests Test 12/11/20 18:00 Urine Collection Type Unknown Urine Color Yellow Urine Clarity Cloudy Urine pH 5.5 Urine Specific [place] >=1.030 Urine Protein Neg Urine Glucose (UA) Neg mg/dL Urine Ketones (Stick) 15 mg/dL Urine Blood Small Urine Nitrite Neg Urine Bilirubin Small Urine Urobilinogen Dipstick 0.2 mg/dL Urine Leukocyte Esterase Small Current Medications Medications (Trade) Dose Ordered Sig/Brianne Route PRN Reason Start Time Stop Time Status Last Admin Dose Admin Lorazepam (Ativan) 1 mg STK-MED ONCE .ROUTE 12/02/20 14:25 12/02/20 14:25 DC Lorazepam (Ativan) 1 mg 1X ONCE PO 12/02/20 14:30 12/02/20 14:36 DC 12/02/20 14:31 Potassium/ Phosphorus/Sodium (Phos-Nak) 1 pkt 1X ONCE PO 12/02/20 15:00 12/02/20 15:01 Cancel Potassium Bicarbonate (Potassium Effervescent Tablet) 20 meq STK-MED ONCE .ROUTE 12/02/20 14:56 12/02/20 14:57 DC Potassium Bicarbonate (Potassium Effervescent Tablet) 20 meq 1X ONCE PO 12/02/20 15:00 12/02/20 15:01 DC 12/02/20 15:00 Acetaminophen (Tylenol) 650 mg PRN Q6HRS PRN PO MILD PAIN / TEMP > 100.3'F 12/02/20 15:45 Multi-Ingredient Ointment (Analgesic [place]) 1 itz PRN QID PRN TP MUSCLE PAIN 12/02/20 15:45 Al Hydroxide/Mg Hydroxide (Mylanta Plus Xs) 15 ml PRN AFTMEALHC PRN PO DYSPEPSIA 12/02/20 15:45 Magnesium Hydroxide (Milk Of Magnesia) 2,400 mg PRN QHS PRN PO CONSTIPATION 12/02/20 15:45 12/03/20 16:29 Lisinopril (Prinivil) 10 mg DAILY PO 12/03/20 09:00 12/09/20 08:36 Multivitamins/ Calcium (Thera-M Plus) 1 tab DAILY PO 12/03/20 09:00 12/09/20 08:36 Olanzapine (ZyPREXA ZYDIS) 2.5 mg PRN Q2HRS PRN PO PSYCHOSIS 12/02/20 17:00 12/11/20 09:09 Potassium Chloride (Klor-Con) 20 meq DAILYWBKFT PO 12/04/20 08:00 12/09/20 08:36 Sertraline HCl (Zoloft) 25 mg DAILY PO 12/04/20 09:00 12/06/20 21:00 DC 12/06/20 08:17 Sertraline HCl (Zoloft) 50 mg DAILY PO 12/07/20 09:00 12/11/20 09:00 Quetiapine Fumarate (SEROquel) 12.5 mg 0900 PO 12/09/20 09:00 12/10/20 16:51 DC 12/10/20 09:00 Quetiapine Fumarate (SEROquel) 12.5 mg ONCE ONCE PO 12/08/20 17:15 12/08/20 17:16 DC 12/08/20 17:15 Quetiapine Fumarate (SEROquel) 12.5 mg 1700 PO 12/09/20 18:00 12/11/20 17:53 Quetiapine Fumarate (SEROquel) 25 mg 0900 PO 12/11/20 09:00 12/11/20 09:00 Current Medications Medications (Trade) Dose Ordered Sig/Brianne Route PRN Reason Start Time Stop Time Status Last Admin Dose Admin Quetiapine Fumarate (SEROquel) 25 mg 0900 PO 12/11/20 09:00 12/11/20 09:00 I have reviewed the current psychotropics carefully including drug interactions. Risk benefit ratio favors no change other than as noted in my dictated progress note. Diagnosis: Problems: (1) Major neurocognitive disorder (2) Impulse control disorder, unspecified (3) Anxiety disorder, unspecified (4) Dementia, vascular, with depression (5) Dementia, vascular, with delusions (6) Dementia in Alzheimer's disease with depression (7) Dementia in Alzheimer's disease with delusions (8) Dementia of the Alzheimer's type with early onset with behavioral disturbance EMILY CHARLES MD Dec 11, 2020 21:56
[2020-12-12 05:55] VITALS: BP 118/66
--- NOTE | 2020-12-12 07:00 | PDOC ---
Exam Note: Earle Note: This note is a late entry for 12/11/2020 covers elements not covered in my initial note. Subjective: The patient was seen individually in the evening of 12/11/2020 with Tiffany APPIAH, discussed and reviewed the chart. The patient slept 7-1/2 hours previous night. She is anxious, restless, constantly up and down the hallway. She was found outside the door of the unit but still on the same floor returned back to the unit. Received p.r.n. x2. She has been hitting, biting staff. We will check a UA for C&S and if it is negative and behaviors are persisting we will start Depakote 125 mg b.i.d. Check CBC, CMP, valproic acid level in 3 days. Rest unchanged. Review of Systems: Ambulation impaired. No CV, , pulmonary, eye system symptoms on review. Mental Status Exam: The patient is oriented to herself. Insight and judgment, recent and remote memory, attention and concentration is poor consistent with her diagnoses. Laboratory Data: Reviewed. Impression: Major neurocognitive disorder Alzheimer vascular with delusion, depression, and behavioral disturbance. Anxiety disorder unspecified. Impulse control disorder unspecified. Plan: Continue current psychotropics. Adjust further as clinically indicated. Assessment: Vital Signs/I&O: Vital Signs Date Time Temp Pulse Resp B/P (MAP) Pulse Ox O2 Delivery O2 Flow Rate FiO2 12/12/20 05:55 97.4 94 18 118/66 (83) 95 12/08/20 05:46 Room Air I & O 12/11/20 12/11/20 12/12/20 15:00 23:00 07:00 Intake Total 480 ml 180 ml 120 ml Balance 480 ml 180 ml 120 ml Labs: Laboratory Tests Test 12/11/20 18:00 Urine Collection Type Unknown Urine Color Yellow Urine Clarity Cloudy Urine pH 5.5 Urine Specific [place] >=1.030 Urine Protein Neg (NEG-TRACE) Urine Glucose (UA) Neg mg/dL (NEG) Urine Ketones (Stick) 15 mg/dL (NEG) Urine Blood Small (NEG) Urine Nitrite Neg (NEG) Urine Bilirubin Small (NEG) Urine Urobilinogen Dipstick 0.2 mg/dL (0.2 mg/dL) Urine Leukocyte Esterase Small (NEG) Current Medications: Meds: Laboratory Tests Test 12/11/20 18:00 Urine Collection Type Unknown Urine Color Yellow Urine Clarity Cloudy Urine pH 5.5 Urine Specific [place] >=1.030 Urine Protein Neg Urine Glucose (UA) Neg mg/dL Urine Ketones (Stick) 15 mg/dL Urine Blood Small Urine Nitrite Neg Urine Bilirubin Small Urine Urobilinogen Dipstick 0.2 mg/dL Urine Leukocyte Esterase Small Current Medications Medications (Trade) Dose Ordered Sig/Brianne Route PRN Reason Start Time Stop Time Status Last Admin Dose Admin Lorazepam (Ativan) 1 mg STK-MED ONCE .ROUTE 12/02/20 14:25 12/02/20 14:25 DC Lorazepam (Ativan) 1 mg 1X ONCE PO 12/02/20 14:30 12/02/20 14:36 DC 12/02/20 14:31 Potassium/ Phosphorus/Sodium (Phos-Nak) 1 pkt 1X ONCE PO 12/02/20 15:00 12/02/20 15:01 Cancel Potassium Bicarbonate (Potassium Effervescent Tablet) 20 meq STK-MED ONCE .ROUTE 12/02/20 14:56 12/02/20 14:57 DC Potassium Bicarbonate (Potassium Effervescent Tablet) 20 meq 1X ONCE PO 12/02/20 15:00 12/02/20 15:01 DC 12/02/20 15:00 Acetaminophen (Tylenol) 650 mg PRN Q6HRS PRN PO MILD PAIN / TEMP > 100.3'F 12/02/20 15:45 Multi-Ingredient Ointment (Analgesic [place]) 1 itz PRN QID PRN TP MUSCLE PAIN 12/02/20 15:45 Al Hydroxide/Mg Hydroxide (Mylanta Plus Xs) 15 ml PRN AFTMEALHC PRN PO DYSPEPSIA 12/02/20 15:45 Magnesium Hydroxide (Milk Of Magnesia) 2,400 mg PRN QHS PRN PO CONSTIPATION 12/02/20 15:45 12/03/20 16:29 Lisinopril (Prinivil) 10 mg DAILY PO 12/03/20 09:00 12/09/20 08:36 Multivitamins/ Calcium (Thera-M Plus) 1 tab DAILY PO 12/03/20 09:00 12/09/20 08:36 Olanzapine (ZyPREXA ZYDIS) 2.5 mg PRN Q2HRS PRN PO PSYCHOSIS 12/02/20 17:00 12/11/20 09:09 Potassium Chloride (Klor-Con) 20 meq DAILYWBKFT PO 12/04/20 08:00 12/09/20 08:36 Sertraline HCl (Zoloft) 25 mg DAILY PO 12/04/20 09:00 12/06/20 21:00 DC 12/06/20 08:17 Sertraline HCl (Zoloft) 50 mg DAILY PO 12/07/20 09:00 12/11/20 09:00 Quetiapine Fumarate (SEROquel) 12.5 mg 0900 PO 12/09/20 09:00 12/10/20 16:51 DC 12/10/20 09:00 Quetiapine Fumarate (SEROquel) 12.5 mg ONCE ONCE PO 12/08/20 17:15 12/08/20 17:16 DC 12/08/20 17:15 Quetiapine Fumarate (SEROquel) 12.5 mg 1700 PO 12/09/20 18:00 12/11/20 17:53 Quetiapine Fumarate (SEROquel) 25 mg 0900 PO 12/11/20 09:00 12/11/20 09:00 Current Medications Medications (Trade) Dose Ordered Sig/Brianne Route PRN Reason Start Time Stop Time Status Last Admin Dose Admin Quetiapine Fumarate (SEROquel) 25 mg 0900 PO 12/11/20 09:00 12/11/20 09:00 I have reviewed the current psychotropics carefully including drug interactions. Risk benefit ratio favors no change other than as noted in my dictated progress note. Diagnosis: Problems: (1) Major neurocognitive disorder (2) Impulse control disorder, unspecified (3) Anxiety disorder, unspecified (4) Dementia, vascular, with depression (5) Dementia, vascular, with delusions (6) Dementia in Alzheimer's disease with depression (7) Dementia in Alzheimer's disease with delusions (8) Dementia of the Alzheimer's type with early onset with behavioral disturbance EMILY CHARLES MD Dec 12, 2020 07:00
[2020-12-12] MEDS: POTASSIUM CHLORIDE 20 MEQ TABLET.ER. PO SCH (08:00)
[2020-12-12] MEDS: MULTIVITAMIN with MINERAL TABLET. PO SCH (08:47)
[2020-12-12] MEDS: LISINOPRIL 10 MG TABLET PO SCH ×2 (08:48→08:57)
[2020-12-12] MEDS: QUEtiapine 25 MG TABLET. PO SCH ×3 (08:48→17:05)
[2020-12-12] MEDS: SERTRALINE 50 MG TABLET. PO SCH ×2 (08:48→08:57)
--- NOTE | 2020-12-12 15:14 | TX PLAN ---
Interdisciplinary Tx Plan Admission Information Dec 02, 2020 at 15:25 Legal Status (on Admission): Voluntary DPOA/Guardian Name: Aron Razo Contact Other Contact Name: [facility] Other Contact Verified Code Status: DNR Allergies: Coded Allergies: No Known Drug Allergies (Unverified , 12/02/20) Diagnoses Primary Diagnosis: Major Neurocognitive D/O, Vascular Alzheimers with delusions and depression Reasons for Admission: Aggressive, Sig. Change Sleep, Combative, Confusion/Disoriented, Poor impulse control, Other Problem in Patient's Words: She has declined pretty quickly in the last 3 months. Additional Admission Comments: According to the intake, pt was biting, hitting staff at LT, throwing things, agitated, restless, wandering, attempts to elope, poor sleep, poor intake, throwing cups of water on LTC staff, attempted to elope out of the back door of [facility] ED during medical clearance. Problems Active Problems: restless wandering increased confusion Inactive Problems: medication compliance Pt Strengths/Limitations Ability for [place]: Poor Cognitive Functioning/Ability: Poor Communication Skills/Ability: Poor Financial Resources: Good Insight/Judgement: Poor Intellectual Ability: Poor Physical Health: Fair Social Skills: Fair Stability in Family: Good Stability in School/Work: Poor Verbal Skills: Poor Discharge Criteria Discharge Criteria: No need for close observ., Adequate arrangements @DC, Improved behavior, Improved mood/thought Preliminary Discharge Plan Preliminary DC Plan: Current Living Arrange. Initial D/C Plan Unknown at this time Identified Discharge Needs: Pt may bring pt home; unknown at this time. Currently Utilized Resources Currently Utilized Resources/P: Primary Care Physician Identified Problems/Hx/Goals Objectives/Short-Term Goals Short Term Goals: Dec. Aggression, Dec. Outbursts, Medication Stabilization, Monitor Med Effects, Promote Coping Skill Short Term Goals in Patient's: N/A Interventions/Frequency Staff Interventions/Frequency&: Psychiatrist to assess pt at least 3x per week for medication management. Social [facility]ok to assess pt at least 2x per week to identify barriers to care and discharge planning. Nursing to assess medication effects, behavior modification and complete 15 minute checks. 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 Education: Pt did graduate high school (12th grade); attended [employer] in [place] with her B.A. in [place] degree. Community Follow-up Primary Care Physician Mental Health Services Treatment Plan Explained Patient/Chiller Hand had this treatment plan explained to him/her as indicated by the signature below and has been given the opportunity to ask questions and make suggestions: Date: Patient/Chiller Hand Signature: Status Update Update Pt Aron participated in treatment team via phone. Pt is eating roughly 75% of meals and sleeping on average 6 hours. Pt is impulsive, has been door checking (yesterday did briefly make her way off the unit before being redirected back) and mainly alert and oriented to self. Pt is very resistive to medications and this morning slapped the med cup out of the nurses hands. Pt is hard to engage in groups and but has sat in the dayroom a couple times with no participation. A UA was ran on pt and results are still pending; if those results come back as negative, pt will start Depakote Sprinkles 125mg BID with labs and levels in 3 days. ELOS for 10 days.HEDY ACEVEDO Dec 12, 2020 15:14
[2020-12-12] MEDS: DIVALPROEX 125 MG CAP.SPRINK PO SCH (21:00)
--- NOTE | 2020-12-12 22:07 | PDOC ---
Exam Note: Earle Note: Please also refer to the separate dictated note~for this date of service dictated separately.~Patient seen individually. Discussed the patient with Nursing staff reviewed the chart.~Reviewed interim history and current functioning. Reviewed vital signs,~Labs/ Radiology~and current medications noted below. Continue current treatment with the changes noted in the dictated addendum note Assessment: Vital Signs/I&O: Vital Signs Date Time Temp Pulse Resp B/P (MAP) Pulse Ox O2 Delivery O2 Flow Rate FiO2 12/12/20 16:15 97.4 94 20 96 Room Air I & O 12/11/20 12/11/20 12/12/20 15:00 23:00 07:00 Intake Total 480 ml 180 ml 120 ml Balance 480 ml 180 ml 120 ml Current Medications: Meds: Current Medications Medications (Trade) Dose Ordered Sig/Brianne Route PRN Reason Start Time Stop Time Status Last Admin Dose Admin Lorazepam (Ativan) 1 mg STK-MED ONCE .ROUTE 12/02/20 14:25 12/02/20 14:25 DC Lorazepam (Ativan) 1 mg 1X ONCE PO 12/02/20 14:30 12/02/20 14:36 DC 12/02/20 14:31 Potassium/ Phosphorus/Sodium (Phos-Nak) 1 pkt 1X ONCE PO 12/02/20 15:00 12/02/20 15:01 Cancel Potassium Bicarbonate (Potassium Effervescent Tablet) 20 meq STK-MED ONCE .ROUTE 12/02/20 14:56 12/02/20 14:57 DC Potassium Bicarbonate (Potassium Effervescent Tablet) 20 meq 1X ONCE PO 12/02/20 15:00 12/02/20 15:01 DC 12/02/20 15:00 Acetaminophen (Tylenol) 650 mg PRN Q6HRS PRN PO MILD PAIN / TEMP > 100.3'F 12/02/20 15:45 Multi-Ingredient Ointment (Analgesic [place]) 1 itz PRN QID PRN TP MUSCLE PAIN 12/02/20 15:45 Al Hydroxide/Mg Hydroxide (Mylanta Plus Xs) 15 ml PRN AFTMEALHC PRN PO DYSPEPSIA 12/02/20 15:45 Magnesium Hydroxide (Milk Of Magnesia) 2,400 mg PRN QHS PRN PO CONSTIPATION 12/02/20 15:45 12/03/20 16:29 Lisinopril (Prinivil) 10 mg DAILY PO 12/03/20 09:00 12/09/20 08:36 Multivitamins/ Calcium (Thera-M Plus) 1 tab DAILY PO 12/03/20 09:00 12/09/20 08:36 Olanzapine (ZyPREXA ZYDIS) 2.5 mg PRN Q2HRS PRN PO PSYCHOSIS 12/02/20 17:00 12/12/20 09:00 Potassium Chloride (Klor-Con) 20 meq DAILYWBKFT PO 12/04/20 08:00 12/09/20 08:36 Sertraline HCl (Zoloft) 25 mg DAILY PO 12/04/20 09:00 12/06/20 21:00 DC 12/06/20 08:17 Sertraline HCl (Zoloft) 50 mg DAILY PO 12/07/20 09:00 12/11/20 09:00 Quetiapine Fumarate (SEROquel) 12.5 mg 0900 PO 12/09/20 09:00 12/10/20 16:51 DC 12/10/20 09:00 Quetiapine Fumarate (SEROquel) 12.5 mg ONCE ONCE PO 12/08/20 17:15 12/08/20 17:16 DC 12/08/20 17:15 Quetiapine Fumarate (SEROquel) 12.5 mg 1700 PO 12/09/20 18:00 12/12/20 17:05 Quetiapine Fumarate (SEROquel) 25 mg 0900 PO 12/11/20 09:00 12/11/20 09:00 Divalproex Sodium (Depakote Sprinkles) 125 mg BID PO 12/12/20 21:00 I have reviewed the current psychotropics carefully including drug interactions. Risk benefit ratio favors no change other than as noted in my dictated progress note. Diagnosis: Problems: (1) Major neurocognitive disorder (2) Impulse control disorder, unspecified (3) Anxiety disorder, unspecified (4) Dementia, vascular, with depression (5) Dementia, vascular, with delusions (6) Dementia in Alzheimer's disease with depression (7) Dementia in Alzheimer's disease with delusions (8) Dementia of the Alzheimer's type with early onset with behavioral disturbance EMILY CHARLES MD Dec 12, 2020 22:06
[2020-12-13] MEDS: traZODone 50 MG TABLET. PO PRN (00:42)
[2020-12-13 05:48] VITALS: BP 138/65
[2020-12-13] MEDS: POTASSIUM CHLORIDE 20 MEQ TABLET.ER. PO SCH (08:35)
[2020-12-13] MEDS: DIVALPROEX 125 MG CAP.SPRINK PO SCH (08:35)
[2020-12-13] MEDS: SERTRALINE 50 MG TABLET. PO SCH (08:35)
[2020-12-13] MEDS: QUEtiapine 25 MG TABLET. PO SCH ×2 (08:35→16:35)
[2020-12-13] MEDS: LISINOPRIL 10 MG TABLET PO SCH (08:35)
[2020-12-13] MEDS: MULTIVITAMIN with MINERAL TABLET. PO SCH (08:35)
[2020-12-13 16:30] VITALS: BP 98/58
[2020-12-13] MEDS ORDERED: DIVALPROEX 125 MG CAP.SPRINK PO SCH (17:00)
--- NOTE | 2020-12-13 22:02 | PDOC ---
Exam Note: Earle Note: Please also refer to the separate dictated note~for this date of service dictated separately.~Patient seen individually. Discussed the patient with Nursing staff reviewed the chart.~Reviewed interim history and current functioning. Reviewed vital signs,~Labs/ Radiology~and current medications noted below. Continue current treatment with the changes noted in the dictated addendum note Assessment: Vital Signs/I&O: Vital Signs Date Time Temp Pulse Resp B/P (MAP) Pulse Ox O2 Delivery O2 Flow Rate FiO2 12/13/20 16:30 97.6 75 16 98/58 (71) 95 Room Air I & O 12/12/20 12/12/20 12/13/20 14:59 22:59 06:59 Intake Total 600 ml 360 ml Balance 600 ml 360 ml Current Medications: Meds: Current Medications Medications (Trade) Dose Ordered Sig/Brianne Route PRN Reason Start Time Stop Time Status Last Admin Dose Admin Lorazepam (Ativan) 1 mg STK-MED ONCE .ROUTE 12/02/20 14:25 12/02/20 14:25 DC Lorazepam (Ativan) 1 mg 1X ONCE PO 12/02/20 14:30 12/02/20 14:36 DC 12/02/20 14:31 Potassium/ Phosphorus/Sodium (Phos-Nak) 1 pkt 1X ONCE PO 12/02/20 15:00 12/02/20 15:01 Cancel Potassium Bicarbonate (Potassium Effervescent Tablet) 20 meq STK-MED ONCE .ROUTE 12/02/20 14:56 12/02/20 14:57 DC Potassium Bicarbonate (Potassium Effervescent Tablet) 20 meq 1X ONCE PO 12/02/20 15:00 12/02/20 15:01 DC 12/02/20 15:00 Acetaminophen (Tylenol) 650 mg PRN Q6HRS PRN PO MILD PAIN / TEMP > 100.3'F 12/02/20 15:45 Multi-Ingredient Ointment (Analgesic [place]) 1 itz PRN QID PRN TP MUSCLE PAIN 12/02/20 15:45 Al Hydroxide/Mg Hydroxide (Mylanta Plus Xs) 15 ml PRN AFTMEALHC PRN PO DYSPEPSIA 12/02/20 15:45 Magnesium Hydroxide (Milk Of Magnesia) 2,400 mg PRN QHS PRN PO CONSTIPATION 12/02/20 15:45 12/03/20 16:29 Lisinopril (Prinivil) 10 mg DAILY PO 12/03/20 09:00 12/13/20 08:35 Multivitamins/ Calcium (Thera-M Plus) 1 tab DAILY PO 12/03/20 09:00 12/13/20 08:35 Olanzapine (ZyPREXA ZYDIS) 2.5 mg PRN Q2HRS PRN PO PSYCHOSIS 12/02/20 17:00 12/13/20 12:45 Potassium Chloride (Klor-Con) 20 meq DAILYWBKFT PO 12/04/20 08:00 12/13/20 08:35 Sertraline HCl (Zoloft) 25 mg DAILY PO 12/04/20 09:00 12/06/20 21:00 DC 12/06/20 08:17 Sertraline HCl (Zoloft) 50 mg DAILY PO 12/07/20 09:00 12/13/20 08:35 Quetiapine Fumarate (SEROquel) 12.5 mg 0900 PO 12/09/20 09:00 12/10/20 16:51 DC 12/10/20 09:00 Quetiapine Fumarate (SEROquel) 12.5 mg ONCE ONCE PO 12/08/20 17:15 12/08/20 17:16 DC 12/08/20 17:15 Quetiapine Fumarate (SEROquel) 12.5 mg 1700 PO 12/09/20 18:00 12/13/20 16:35 Quetiapine Fumarate (SEROquel) 25 mg 0900 PO 12/11/20 09:00 12/13/20 08:35 Divalproex Sodium (Depakote Sprinkles) 125 mg BID PO 12/12/20 21:00 12/13/20 10:16 DC 12/13/20 08:35 Trazodone HCl (Desyrel) 50 mg PRN QHS PRN PO INSOMNIA 12/13/20 00:30 12/13/20 00:42 Divalproex Sodium (Depakote Sprinkles) 125 mg 0900,1700 PO 12/13/20 17:00 12/13/20 17:49 DC 12/13/20 16:35 Valproic Acid (Depakene) 125 mg 0900,1700 PO 12/14/20 09:00 Current Medications Medications (Trade) Dose Ordered Sig/Brianne Route PRN Reason Start Time Stop Time Status Last Admin Dose Admin Trazodone HCl (Desyrel) 50 mg PRN QHS PRN PO INSOMNIA 12/13/20 00:30 12/13/20 00:42 Divalproex Sodium (Depakote Sprinkles) 125 mg 0900,1700 PO 12/13/20 17:00 12/13/20 17:49 DC 12/13/20 16:35 I have reviewed the current psychotropics carefully including drug interactions. Risk benefit ratio favors no change other than as noted in my dictated progress note. 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
[2020-12-14 06:05] VITALS: BP 115/67
--- NOTE | 2020-12-14 07:21 | PDOC ---
Exam Note: Earle Note: This note is a late entry for 12/12/2020 covers elements not covered in my initial note. Subjective: The patient was reviewed in the morning of 12/12/2020 for a treatment team meeting with Maryana Rice, Cathy Hargrove (licensed social worker), Elizabeth, activity therapy and Carmella APPIAH discussed and reviewed the chart. The patient slept 6-3/4 hours previous night. Her Aron attended the treatment team meeting. The patient remains confused, paranoid, having intermittent hallucinations. She had a better visit with her . Day before she was quite verbal with staff. UA is negative. She remains restless, constantly moving, unable to sit still. Review of Systems: Ambulation impaired. No CV, , pulmonary, eye system symptoms on review. Reliability poor. Mental Status Exam: The patient is oriented to herself. Insight and judgment, recent and remote memory, attention and concentration is poor consistent with her diagnoses. Laboratory Data: Reviewed. Impression: Major neurocognitive disorder Alzheimer vascular with delusion, depression, and behavioral disturbance. Anxiety disorder unspecified. Impulse control disorder unspecified. Plan: Continue current psychotropics. Adjust further as clinically indicated. Assessment: Vital Signs/I&O: Vital Signs Date Time Temp Pulse Resp B/P (MAP) Pulse Ox O2 Delivery O2 Flow Rate FiO2 12/14/20 06:05 96.7 67 14 115/67 (83) 98 Room Air I & O 12/13/20 12/13/20 12/14/20 15:00 23:00 07:00 Intake Total 360 ml 720 ml Balance 360 ml 720 ml Current Medications: Meds: Current Medications Medications (Trade) Dose Ordered Sig/Brianne Route PRN Reason Start Time Stop Time Status Last Admin Dose Admin Lorazepam (Ativan) 1 mg STK-MED ONCE .ROUTE 12/02/20 14:25 12/02/20 14:25 DC Lorazepam (Ativan) 1 mg 1X ONCE PO 12/02/20 14:30 12/02/20 14:36 DC 12/02/20 14:31 Potassium/ Phosphorus/Sodium (Phos-Nak) 1 pkt 1X ONCE PO 12/02/20 15:00 12/02/20 15:01 Cancel Potassium Bicarbonate (Potassium Effervescent Tablet) 20 meq STK-MED ONCE .ROUTE 12/02/20 14:56 12/02/20 14:57 DC Potassium Bicarbonate (Potassium Effervescent Tablet) 20 meq 1X ONCE PO 12/02/20 15:00 12/02/20 15:01 DC 12/02/20 15:00 Acetaminophen (Tylenol) 650 mg PRN Q6HRS PRN PO MILD PAIN / TEMP > 100.3'F 12/02/20 15:45 Multi-Ingredient Ointment (Analgesic [place]) 1 itz PRN QID PRN TP MUSCLE PAIN 12/02/20 15:45 Al Hydroxide/Mg Hydroxide (Mylanta Plus Xs) 15 ml PRN AFTMEALHC PRN PO DYSPEPSIA 12/02/20 15:45 Magnesium Hydroxide (Milk Of Magnesia) 2,400 mg PRN QHS PRN PO CONSTIPATION 12/02/20 15:45 12/03/20 16:29 Lisinopril (Prinivil) 10 mg DAILY PO 12/03/20 09:00 12/13/20 08:35 Multivitamins/ Calcium (Thera-M Plus) 1 tab DAILY PO 12/03/20 09:00 12/13/20 08:35 Olanzapine (ZyPREXA ZYDIS) 2.5 mg PRN Q2HRS PRN PO PSYCHOSIS 12/02/20 17:00 12/13/20 12:45 Potassium Chloride (Klor-Con) 20 meq DAILYWBKFT PO 12/04/20 08:00 12/13/20 08:35 Sertraline HCl (Zoloft) 25 mg DAILY PO 12/04/20 09:00 12/06/20 21:00 DC 12/06/20 08:17 Sertraline HCl (Zoloft) 50 mg DAILY PO 12/07/20 09:00 12/13/20 08:35 Quetiapine Fumarate (SEROquel) 12.5 mg 0900 PO 12/09/20 09:00 12/10/20 16:51 DC 12/10/20 09:00 Quetiapine Fumarate (SEROquel) 12.5 mg ONCE ONCE PO 12/08/20 17:15 12/08/20 17:16 DC 12/08/20 17:15 Quetiapine Fumarate (SEROquel) 12.5 mg 1700 PO 12/09/20 18:00 12/13/20 16:35 Quetiapine Fumarate (SEROquel) 25 mg 0900 PO 12/11/20 09:00 12/13/20 08:35 Divalproex Sodium (Depakote Sprinkles) 125 mg BID PO 12/12/20 21:00 12/13/20 10:16 DC 12/13/20 08:35 Trazodone HCl (Desyrel) 50 mg PRN QHS PRN PO INSOMNIA 12/13/20 00:30 12/13/20 00:42 Divalproex Sodium (Depakote Sprinkles) 125 mg 0900,1700 PO 12/13/20 17:00 12/13/20 17:49 DC 12/13/20 16:35 Valproic Acid (Depakene) 125 mg 0900,1700 PO 12/14/20 09:00 Current Medications Medications (Trade) Dose Ordered Sig/Brianne Route PRN Reason Start Time Stop Time Status Last Admin Dose Admin Divalproex Sodium (Depakote Sprinkles) 125 mg 0900,1700 PO 12/13/20 17:00 12/13/20 17:49 DC 12/13/20 16:35 I have reviewed the current psychotropics carefully including drug interactions. Risk benefit ratio favors no change other than as noted in my dictated progress note. Diagnosis: Problems: (1) Major neurocognitive disorder (2) Impulse control disorder, unspecified (3) Anxiety disorder, unspecified (4) Dementia, vascular, with depression (5) Dementia, vascular, with delusions (6) Dementia in Alzheimer's disease with depression (7) Dementia in Alzheimer's disease with delusions (8) Dementia of the Alzheimer's type with early onset with behavioral disturbance EMILY CHARLES MD Dec 14, 2020 07:21
--- NOTE | 2020-12-14 07:37 | PDOC ---
Exam Note: Earle Note: This note is a late entry for 12/13/2020 covers elements not covered in my initial note. Subjective: The patient was seen individually in the evening of 12/13/2020 with Tiffany APPIAH, discussed and reviewed the chart. The patient slept 6-1/2 hours previous night. She remains somewhat restless but more redirectable, able to settle down on the dining table for brief periods of time. Review of Systems: Ambulation impaired. No CV, , pulmonary, eye system symptoms on review. Reliability poor. Mental Status Exam: The patient is oriented to herself. Insight and judgment, recent and remote memory, attention and concentration is poor consistent with her diagnoses. Laboratory Data: Reviewed. Impression: Major neurocognitive disorder Alzheimer vascular with delusion, depression, and behavioral disturbance. Anxiety disorder unspecified. Impulse control disorder unspecified. Plan: Continue current psychotropics. Adjust further as clinically indicated. Assessment: Vital Signs/I&O: Vital Signs Date Time Temp Pulse Resp B/P (MAP) Pulse Ox O2 Delivery O2 Flow Rate FiO2 12/14/20 06:05 96.7 67 14 115/67 (83) 98 Room Air I & O 12/13/20 12/13/20 12/14/20 15:00 23:00 07:00 Intake Total 360 ml 720 ml Balance 360 ml 720 ml Current Medications: Meds: Current Medications Medications (Trade) Dose Ordered Sig/Brianne Route PRN Reason Start Time Stop Time Status Last Admin Dose Admin Lorazepam (Ativan) 1 mg STK-MED ONCE .ROUTE 12/02/20 14:25 12/02/20 14:25 DC Lorazepam (Ativan) 1 mg 1X ONCE PO 12/02/20 14:30 12/02/20 14:36 DC 12/02/20 14:31 Potassium/ Phosphorus/Sodium (Phos-Nak) 1 pkt 1X ONCE PO 12/02/20 15:00 12/02/20 15:01 Cancel Potassium Bicarbonate (Potassium Effervescent Tablet) 20 meq STK-MED ONCE .ROUTE 12/02/20 14:56 12/02/20 14:57 DC Potassium Bicarbonate (Potassium Effervescent Tablet) 20 meq 1X ONCE PO 12/02/20 15:00 12/02/20 15:01 DC 12/02/20 15:00 Acetaminophen (Tylenol) 650 mg PRN Q6HRS PRN PO MILD PAIN / TEMP > 100.3'F 12/02/20 15:45 Multi-Ingredient Ointment (Analgesic [place]) 1 itz PRN QID PRN TP MUSCLE PAIN 12/02/20 15:45 Al Hydroxide/Mg Hydroxide (Mylanta Plus Xs) 15 ml PRN AFTMEALHC PRN PO DYSPEPSIA 12/02/20 15:45 Magnesium Hydroxide (Milk Of Magnesia) 2,400 mg PRN QHS PRN PO CONSTIPATION 12/02/20 15:45 12/03/20 16:29 Lisinopril (Prinivil) 10 mg DAILY PO 12/03/20 09:00 12/13/20 08:35 Multivitamins/ Calcium (Thera-M Plus) 1 tab DAILY PO 12/03/20 09:00 12/13/20 08:35 Olanzapine (ZyPREXA ZYDIS) 2.5 mg PRN Q2HRS PRN PO PSYCHOSIS 12/02/20 17:00 12/13/20 12:45 Potassium Chloride (Klor-Con) 20 meq DAILYWBKFT PO 12/04/20 08:00 12/13/20 08:35 Sertraline HCl (Zoloft) 25 mg DAILY PO 12/04/20 09:00 12/06/20 21:00 DC 12/06/20 08:17 Sertraline HCl (Zoloft) 50 mg DAILY PO 12/07/20 09:00 12/13/20 08:35 Quetiapine Fumarate (SEROquel) 12.5 mg 0900 PO 12/09/20 09:00 12/10/20 16:51 DC 12/10/20 09:00 Quetiapine Fumarate (SEROquel) 12.5 mg ONCE ONCE PO 12/08/20 17:15 12/08/20 17:16 DC 12/08/20 17:15 Quetiapine Fumarate (SEROquel) 12.5 mg 1700 PO 12/09/20 18:00 12/13/20 16:35 Quetiapine Fumarate (SEROquel) 25 mg 0900 PO 12/11/20 09:00 12/13/20 08:35 Divalproex Sodium (Depakote Sprinkles) 125 mg BID PO 12/12/20 21:00 12/13/20 10:16 DC 12/13/20 08:35 Trazodone HCl (Desyrel) 50 mg PRN QHS PRN PO INSOMNIA 12/13/20 00:30 12/13/20 00:42 Divalproex Sodium (Depakote Sprinkles) 125 mg 0900,1700 PO 12/13/20 17:00 12/13/20 17:49 DC 12/13/20 16:35 Valproic Acid (Depakene) 125 mg 0900,1700 PO 12/14/20 09:00 Current Medications Medications (Trade) Dose Ordered Sig/Brianne Route PRN Reason Start Time Stop Time Status Last Admin Dose Admin Divalproex Sodium (Depakote Sprinkles) 125 mg 0900,1700 PO 12/13/20 17:00 12/13/20 17:49 DC 12/13/20 16:35 I have reviewed the current psychotropics carefully including drug interactions. Risk benefit ratio favors no change other than as noted in my dictated progress note. Diagnosis: Problems: (1) Major neurocognitive disorder (2) Impulse control disorder, unspecified (3) Anxiety disorder, unspecified (4) Dementia, vascular, with depression (5) Dementia, vascular, with delusions (6) Dementia in Alzheimer's disease with depression (7) Dementia in Alzheimer's disease with delusions (8) Dementia of the Alzheimer's type with early onset with behavioral disturbance EMILY CHARLES MD Dec 14, 2020 07:37
[2020-12-14] MEDS: VALPROATE ACID 250 MG/5 ML ORAL SOLUTION PO SCH ×2 (08:16→17:00)
[2020-12-14] MEDS: POTASSIUM CHLORIDE 20 MEQ TABLET.ER. PO SCH (08:16)
[2020-12-14] MEDS: SERTRALINE 50 MG TABLET. PO SCH (08:16)
[2020-12-14] MEDS: MULTIVITAMIN with MINERAL TABLET. PO SCH (08:16)
[2020-12-14] MEDS: LISINOPRIL 10 MG TABLET PO SCH (08:16)
[2020-12-14] MEDS: QUEtiapine 25 MG TABLET. PO SCH ×2 (08:17→17:00)
[2020-12-14 16:20] VITALS: BP 96/57
[2020-12-14] MEDS: traZODone 50 MG TABLET. PO PRN (20:19)
--- NOTE | 2020-12-14 23:22 | PDOC ---
Exam Note: Earle Note: Please also refer to the separate dictated note~for this date of service dictated separately.~Patient seen individually. Discussed the patient with Nursing staff reviewed the chart.~Reviewed interim history and current functioning. Reviewed vital signs,~Labs/ Radiology~and current medications noted below. Continue current treatment with the changes noted in the dictated addendum note Assessment: Vital Signs/I&O: Vital Signs Date Time Temp Pulse Resp B/P (MAP) Pulse Ox O2 Delivery O2 Flow Rate FiO2 12/14/20 16:20 97.8 88 18 96/57 (70) 97 12/14/20 06:05 Room Air I & O 12/13/20 12/13/20 12/14/20 15:00 23:00 07:00 Intake Total 360 ml 720 ml Balance 360 ml 720 ml Current Medications: Meds: Current Medications Medications (Trade) Dose Ordered Sig/Brianne Route PRN Reason Start Time Stop Time Status Last Admin Dose Admin Lorazepam (Ativan) 1 mg STK-MED ONCE .ROUTE 12/02/20 14:25 12/02/20 14:25 DC Lorazepam (Ativan) 1 mg 1X ONCE PO 12/02/20 14:30 12/02/20 14:36 DC 12/02/20 14:31 Potassium/ Phosphorus/Sodium (Phos-Nak) 1 pkt 1X ONCE PO 12/02/20 15:00 12/02/20 15:01 Cancel Potassium Bicarbonate (Potassium Effervescent Tablet) 20 meq STK-MED ONCE .ROUTE 12/02/20 14:56 12/02/20 14:57 DC Potassium Bicarbonate (Potassium Effervescent Tablet) 20 meq 1X ONCE PO 12/02/20 15:00 12/02/20 15:01 DC 12/02/20 15:00 Acetaminophen (Tylenol) 650 mg PRN Q6HRS PRN PO MILD PAIN / TEMP > 100.3'F 12/02/20 15:45 Multi-Ingredient Ointment (Analgesic [place]) 1 itz PRN QID PRN TP MUSCLE PAIN 12/02/20 15:45 Al Hydroxide/Mg Hydroxide (Mylanta Plus Xs) 15 ml PRN AFTMEALHC PRN PO DYSPEPSIA 12/02/20 15:45 Magnesium Hydroxide (Milk Of Magnesia) 2,400 mg PRN QHS PRN PO CONSTIPATION 12/02/20 15:45 12/03/20 16:29 Lisinopril (Prinivil) 10 mg DAILY PO 12/03/20 09:00 12/14/20 08:16 Multivitamins/ Calcium (Thera-M Plus) 1 tab DAILY PO 12/03/20 09:00 12/14/20 08:16 Olanzapine (ZyPREXA ZYDIS) 2.5 mg PRN Q2HRS PRN PO PSYCHOSIS 12/02/20 17:00 12/14/20 20:19 Potassium Chloride (Klor-Con) 20 meq DAILYWBKFT PO 12/04/20 08:00 12/14/20 08:16 Sertraline HCl (Zoloft) 25 mg DAILY PO 12/04/20 09:00 12/06/20 21:00 DC 12/06/20 08:17 Sertraline HCl (Zoloft) 50 mg DAILY PO 12/07/20 09:00 12/14/20 08:16 Quetiapine Fumarate (SEROquel) 12.5 mg 0900 PO 12/09/20 09:00 12/10/20 16:51 DC 12/10/20 09:00 Quetiapine Fumarate (SEROquel) 12.5 mg ONCE ONCE PO 12/08/20 17:15 12/08/20 17:16 DC 12/08/20 17:15 Quetiapine Fumarate (SEROquel) 12.5 mg 1700 PO 12/09/20 18:00 12/14/20 17:00 Quetiapine Fumarate (SEROquel) 25 mg 0900 PO 12/11/20 09:00 12/14/20 08:17 Divalproex Sodium (Depakote Sprinkles) 125 mg BID PO 12/12/20 21:00 12/13/20 10:16 DC 12/13/20 08:35 Trazodone HCl (Desyrel) 50 mg PRN QHS PRN PO INSOMNIA 12/13/20 00:30 12/14/20 20:19 Divalproex Sodium (Depakote Sprinkles) 125 mg 0900,1700 PO 12/13/20 17:00 12/13/20 17:49 DC 12/13/20 16:35 Valproic Acid (Depakene) 125 mg 0900,1700 PO 12/14/20 09:00 12/14/20 17:00 Current Medications Medications (Trade) Dose Ordered Sig/Brianne Route PRN Reason Start Time Stop Time Status Last Admin Dose Admin Valproic Acid (Depakene) 125 mg 0900,1700 PO 12/14/20 09:00 12/14/20 17:00 I have reviewed the current psychotropics carefully including drug interactions. Risk benefit ratio favors no change other than as noted in my dictated progress note. Diagnosis: Problems: (1) Major neurocognitive disorder (2) Impulse control disorder, unspecified (3) Anxiety disorder, unspecified (4) Dementia, vascular, with depression (5) Dementia, vascular, with delusions (6) Dementia in Alzheimer's disease with depression (7) Dementia in Alzheimer's disease with delusions (8) Dementia of the Alzheimer's type with early onset with behavioral disturbance EMILY CHARLES MD Dec 14, 2020 23:22
[2020-12-15 06:43] VITALS: BP 108/70
[2020-12-15] MEDS: POTASSIUM CHLORIDE 20 MEQ TABLET.ER. PO SCH (08:00)
[2020-12-15] MEDS: VALPROATE ACID 250 MG/5 ML ORAL SOLUTION PO SCH ×2 (08:59→17:00)
[2020-12-15] MEDS: LISINOPRIL 10 MG TABLET PO SCH (08:59)
[2020-12-15] MEDS: QUEtiapine 25 MG TABLET. PO SCH ×2 (08:59→17:00)
[2020-12-15] MEDS: MULTIVITAMIN with MINERAL TABLET. PO SCH (08:59)
[2020-12-15] MEDS: ACETAMINOPHEN 325 MG TABLET PO PRN (09:00)
[2020-12-15] MEDS: SERTRALINE 50 MG TABLET. PO SCH (09:00)
[2020-12-15 15:52] VITALS: BP 100/63
[2020-12-15] MEDS: traZODone 50 MG TABLET. PO PRN (20:07)
[2020-12-16 06:02] VITALS: BP 131/82
[2020-12-16 06:35] LABS: BASO # 0.1 x10^3/uL (0.0-0.2); BASO % 1 % (0-3); EOS # 0.3 x10^3/uL (0.0-0.7); EOS % 5 % (0-3); HEMATOCRIT 36.1 % (36.0-47.0); HEMOGLOBIN 12.4 g/dL (12.0-15.5); LYMPH # 1.7 x10^3/uL (1.0-4.8); LYMPH % 34 % (24-48); MEAN CORPUSCULAR HEMOGLOBIN 32 pg (25-35); MEAN CORPUSCULAR HGB CONC 34 g/dL (31-37); MEAN CORPUSCULAR VOLUME 93 fL (79-100); MONO # 0.5 x10^3/uL (0.0-1.1); MONO % 10 % (0-9); NEUT # 2.4 x10^3uL (1.8-7.7); NEUT % 50 % (31-73); PLATELET COUNT 234 x10^3/uL (140-400); RED BLOOD COUNT 3.87 x10^6/uL (3.50-5.40); RED CELL DISTRIBUTION WIDTH 12.8 % (11.5-14.5); WHITE BLOOD COUNT 4.9 x10^3/uL (4.0-11.0)
[2020-12-16 07:03] LABS: ALBUMIN 3.8 g/dL (3.4-5.0); ALBUMIN/GLOBULIN RATIO 1.4 (1.0-1.7); ALK PHOS 67 U/L (46-116); ALT (SGPT) 30 U/L (14-59); ANION GAP 9 (6-14); AST (SGOT) 16 U/L (15-37); BLOOD UREA NITROGEN 31 mg/dL (7-20); BUN/CREATININE RATIO 31 (6-20); CALCIUM 9.5 mg/dL (8.5-10.1); CARBON DIOXIDE 29 mmol/L (21-32); CHLORIDE 109 mmol/L (98-107); GLUCOSE 92 mg/dL (70-99); POTASSIUM 4.1 mmol/L (3.5-5.1); SODIUM 147 mmol/L (136-145); TOTAL BILIRUBIN 0.4 mg/dL (0.2-1.0); TOTAL PROTEIN 6.6 g/dL (6.4-8.2)
[2020-12-16 07:05] LABS: VAL ACID 25 mcg/mL (50-100)
[2020-12-16] MEDS: MULTIVITAMIN with MINERAL TABLET. PO SCH (08:27)
[2020-12-16] MEDS: LISINOPRIL 10 MG TABLET PO SCH (08:27)
[2020-12-16] MEDS: POTASSIUM CHLORIDE 20 MEQ TABLET.ER. PO SCH (08:27)
[2020-12-16] MEDS: QUEtiapine 25 MG TABLET. PO SCH ×2 (08:27→17:18)
[2020-12-16] MEDS: VALPROATE ACID 250 MG/5 ML ORAL SOLUTION PO SCH ×2 (08:27→17:18)
[2020-12-16] MEDS: SERTRALINE 50 MG TABLET. PO SCH (08:27)
--- NOTE | 2020-12-16 09:25 | PDOC ---
Exam Note: Earle Note: This note is a late entry for 12/14/2020 covers elements not covered in my initial note. Subjective: The patient was seen on telehealth rounds in the evening of 12/14/2020 with the nursing staff taking the telehealth camera to each patient, which was on a secure portal, discussed and reviewed the chart with Tiffany APPIAH. The patient slept 6 hours previous night. She was resistive to medications in the morning. It had to be mixed in pudding and crushed. Labs are to be repeated on 12/16. She is still somewhat up and down the hallway, hyperactive but redirectable better than before. Review of Systems: Ambulation impaired. No CV, , pulmonary, eye system symptoms on review. Reliability poor. Mental Status Exam: The patient is oriented to herself. Insight and judgment, recent and remote memory, attention and concentration is poor consistent with her diagnoses. Laboratory Data: Reviewed. Impression: Major neurocognitive disorder Alzheimer vascular with delusion, depression, and behavioral disturbance. Anxiety disorder unspecified. Impulse control disorder unspecified. Plan: Continue current psychotropics. Adjust further as clinically indicated. Assessment: Vital Signs/I&O: Vital Signs Date Time Temp Pulse Resp B/P (MAP) Pulse Ox O2 Delivery O2 Flow Rate FiO2 12/16/20 08:27 98 131/82 12/16/20 06:02 97.0 18 97 12/15/20 15:52 Room Air I & O 12/15/20 12/15/20 12/16/20 15:00 23:00 07:00 Intake Total 120 ml 240 ml Balance 120 ml 240 ml Labs: Laboratory Tests Test 12/16/20 05:50 White Blood Count 4.9 x10^3/uL (4.0-11.0) Red Blood Count 3.87 x10^6/uL (3.50-5.40) Hemoglobin 12.4 g/dL (12.0-15.5) Hematocrit 36.1 % (36.0-47.0) Mean Corpuscular Volume 93 fL (79-100) Mean Corpuscular Hemoglobin 32 pg (25-35) Mean Corpuscular Hemoglobin Concent 34 g/dL (31-37) Red Cell Distribution Width 12.8 % (11.5-14.5) Platelet Count 234 x10^3/uL (140-400) Neutrophils (%) (Auto) 50 % (31-73) Lymphocytes (%) (Auto) 34 % (24-48) Monocytes (%) (Auto) 10 % (0-9) H Eosinophils (%) (Auto) 5 % (0-3) H Basophils (%) (Auto) 1 % (0-3) Neutrophils # (Auto) 2.4 x10^3uL (1.8-7.7) Lymphocytes # (Auto) 1.7 x10^3/uL (1.0-4.8) Monocytes # (Auto) 0.5 x10^3/uL (0.0-1.1) Eosinophils # (Auto) 0.3 x10^3/uL (0.0-0.7) Basophils # (Auto) 0.1 x10^3/uL (0.0-0.2) Sodium Level 147 mmol/L (136-145) H Potassium Level 4.1 mmol/L (3.5-5.1) Chloride Level 109 mmol/L (98-107) H Carbon Dioxide Level 29 mmol/L (21-32) Anion Gap 9 (6-14) Blood Urea Nitrogen 31 mg/dL (7-20) H Creatinine 1.0 mg/dL (0.6-1.0) Estimated GFR (Cockcroft-Gault) 53.0 BUN/Creatinine Ratio 31 (6-20) H Glucose Level 92 mg/dL (70-99) Calcium Level 9.5 mg/dL (8.5-10.1) Total Bilirubin 0.4 mg/dL (0.2-1.0) Aspartate Amino Transferase (AST) 16 U/L (15-37) Alanine Aminotransferase (ALT) 30 U/L (14-59) Alkaline Phosphatase 67 U/L (46-116) Total Protein 6.6 g/dL (6.4-8.2) Albumin 3.8 g/dL (3.4-5.0) Albumin/Globulin Ratio 1.4 (1.0-1.7) Valproic Acid Level 25 mcg/mL (50-100) L Valproic Acid Last Dose Date 12/15/2020 Valproic Acid Last Dose Time 1700 Current Medications: Meds: Laboratory Tests Test 12/16/20 05:50 White Blood Count 4.9 x10^3/uL Red Blood Count 3.87 x10^6/uL Hemoglobin 12.4 g/dL Hematocrit 36.1 % Mean Corpuscular Volume 93 fL Mean Corpuscular Hemoglobin 32 pg Mean Corpuscular Hemoglobin Concent 34 g/dL Red Cell Distribution Width 12.8 % Platelet Count 234 x10^3/uL Neutrophils (%) (Auto) 50 % Lymphocytes (%) (Auto) 34 % Monocytes (%) (Auto) 10 % Eosinophils (%) (Auto) 5 % Basophils (%) (Auto) 1 % Neutrophils # (Auto) 2.4 x10^3uL Lymphocytes # (Auto) 1.7 x10^3/uL Monocytes # (Auto) 0.5 x10^3/uL Eosinophils # (Auto) 0.3 x10^3/uL Basophils # (Auto) 0.1 x10^3/uL Sodium Level 147 mmol/L Potassium Level 4.1 mmol/L Chloride Level 109 mmol/L Carbon Dioxide Level 29 mmol/L Anion Gap 9 Blood Urea Nitrogen 31 mg/dL Creatinine 1.0 mg/dL Estimated GFR (Cockcroft-Gault) 53.0 BUN/Creatinine Ratio 31 Glucose Level 92 mg/dL Calcium Level 9.5 mg/dL Total Bilirubin 0.4 mg/dL Aspartate Amino Transf (AST/SGOT) 16 U/L Alanine Aminotransferase (ALT/SGPT) 30 U/L Alkaline Phosphatase 67 U/L Total Protein 6.6 g/dL Albumin 3.8 g/dL Albumin/Globulin Ratio 1.4 Valproic Acid (Depakene) Level 25 mcg/mL Valproic Acid Last Dose Date 12/15/2020 Valproic Acid Last Dose Time 1700 Current Medications Medications (Trade) Dose Ordered Sig/Brianne Route PRN Reason Start Time Stop Time Status Last Admin Dose Admin Lorazepam (Ativan) 1 mg STK-MED ONCE .ROUTE 12/02/20 14:25 12/02/20 14:25 DC Lorazepam (Ativan) 1 mg 1X ONCE PO 12/02/20 14:30 12/02/20 14:36 DC 12/02/20 14:31 Potassium/ Phosphorus/Sodium (Phos-Nak) 1 pkt 1X ONCE PO 12/02/20 15:00 12/02/20 15:01 Cancel Potassium Bicarbonate (Potassium Effervescent Tablet) 20 meq STK-MED ONCE .ROUTE 12/02/20 14:56 6/14/21 14:57 DC Potassium Bicarbonate (Potassium Effervescent Tablet) 20 meq 1X ONCE PO 12/02/20 15:00 12/02/20 15:01 DC 12/02/20 15:00 Acetaminophen (Tylenol) 650 mg PRN Q6HRS PRN PO MILD PAIN / TEMP > 100.3'F 12/02/20 15:45 12/15/20 09:00 Multi-Ingredient Ointment (Analgesic [place]) 1 itz PRN QID PRN TP MUSCLE PAIN 12/02/20 15:45 Al Hydroxide/Mg Hydroxide (Mylanta Plus Xs) 15 ml PRN AFTMEALHC PRN PO DYSPEPSIA 12/02/20 15:45 Magnesium Hydroxide (Milk Of Magnesia) 2,400 mg PRN QHS PRN PO CONSTIPATION 12/02/20 15:45 12/03/20 16:29 Lisinopril (Prinivil) 10 mg DAILY PO 12/03/20 09:00 12/16/20 08:27 Multivitamins/ Calcium (Thera-M Plus) 1 tab DAILY PO 12/03/20 09:00 12/16/20 08:27 Olanzapine (ZyPREXA ZYDIS) 2.5 mg PRN Q2HRS PRN PO PSYCHOSIS 12/02/20 17:00 12/15/20 20:07 Potassium Chloride (Klor-Con) 20 meq DAILYWBKFT PO 12/04/20 08:00 12/16/20 08:27 Sertraline HCl (Zoloft) 25 mg DAILY PO 12/04/20 09:00 12/06/20 21:00 DC 12/06/20 08:17 Sertraline HCl (Zoloft) 50 mg DAILY PO 12/07/20 09:00 12/16/20 08:27 Quetiapine Fumarate (SEROquel) 12.5 mg 0900 PO 12/09/20 09:00 12/10/20 16:51 DC 12/10/20 09:00 Quetiapine Fumarate (SEROquel) 12.5 mg ONCE ONCE PO 12/08/20 17:15 12/08/20 17:16 DC 12/08/20 17:15 Quetiapine Fumarate (SEROquel) 12.5 mg 1700 PO 12/09/20 18:00 12/15/20 17:00 Quetiapine Fumarate (SEROquel) 25 mg 0900 PO 12/11/20 09:00 12/16/20 08:27 Divalproex Sodium (Depakote Sprinkles) 125 mg BID PO 12/12/20 21:00 12/13/20 10:16 DC 12/13/20 08:35 Trazodone HCl (Desyrel) 50 mg PRN QHS PRN PO INSOMNIA 12/13/20 00:30 12/15/20 20:07 Divalproex Sodium (Depakote Sprinkles) 125 mg 0900,1700 PO 12/13/20 17:00 12/13/20 17:49 DC 12/13/20 16:35 Valproic Acid (Depakene) 125 mg 0900,1700 PO 12/14/20 09:00 12/16/20 08:27 I have reviewed the current psychotropics carefully including drug interactions. Risk benefit ratio favors no change other than as noted in my dictated progress note. Diagnosis: Problems: (1) Major neurocognitive disorder (2) Impulse control disorder, unspecified (3) Anxiety disorder, unspecified (4) Dementia, vascular, with depression (5) Dementia, vascular, with delusions (6) Dementia in Alzheimer's disease with depression (7) Dementia in Alzheimer's disease with delusions (8) Dementia of the Alzheimer's type with early onset with behavioral disturbance EMILY CHARLES MD Dec 16, 2020 09:25
[2020-12-16 15:44] VITALS: BP 121/53
[2020-12-16] MEDS: traZODone 50 MG TABLET. PO PRN (19:32)
--- NOTE | 2020-12-16 22:11 | PDOC ---
Exam Note: Earle Note: Please also refer to the separate dictated note~for this date of service dictated separately.~Patient seen individually. Discussed the patient with Nursing staff reviewed the chart.~Reviewed interim history and current functioning. Reviewed vital signs,~Labs/ Radiology~and current medications noted below. Continue current treatment with the changes noted in the dictated addendum note Assessment: Vital Signs/I&O: Vital Signs Date Time Temp Pulse Resp B/P (MAP) Pulse Ox O2 Delivery O2 Flow Rate FiO2 12/16/20 15:44 98.1 96 18 121/53 (75) 97 12/15/20 15:52 Room Air I & O 12/15/20 12/15/20 12/16/20 15:00 23:00 07:00 Intake Total 120 ml 240 ml Balance 120 ml 240 ml Labs: Laboratory Tests Test 12/16/20 05:50 White Blood Count 4.9 x10^3/uL (4.0-11.0) Red Blood Count 3.87 x10^6/uL (3.50-5.40) Hemoglobin 12.4 g/dL (12.0-15.5) Hematocrit 36.1 % (36.0-47.0) Mean Corpuscular Volume 93 fL (79-100) Mean Corpuscular Hemoglobin 32 pg (25-35) Mean Corpuscular Hemoglobin Concent 34 g/dL (31-37) Red Cell Distribution Width 12.8 % (11.5-14.5) Platelet Count 234 x10^3/uL (140-400) Neutrophils (%) (Auto) 50 % (31-73) Lymphocytes (%) (Auto) 34 % (24-48) Monocytes (%) (Auto) 10 % (0-9) H Eosinophils (%) (Auto) 5 % (0-3) H Basophils (%) (Auto) 1 % (0-3) Neutrophils # (Auto) 2.4 x10^3uL (1.8-7.7) Lymphocytes # (Auto) 1.7 x10^3/uL (1.0-4.8) Monocytes # (Auto) 0.5 x10^3/uL (0.0-1.1) Eosinophils # (Auto) 0.3 x10^3/uL (0.0-0.7) Basophils # (Auto) 0.1 x10^3/uL (0.0-0.2) Sodium Level 147 mmol/L (136-145) H Potassium Level 4.1 mmol/L (3.5-5.1) Chloride Level 109 mmol/L (98-107) H Carbon Dioxide Level 29 mmol/L (21-32) Anion Gap 9 (6-14) Blood Urea Nitrogen 31 mg/dL (7-20) H Creatinine 1.0 mg/dL (0.6-1.0) Estimated GFR (Cockcroft-Gault) 53.0 BUN/Creatinine Ratio 31 (6-20) H Glucose Level 92 mg/dL (70-99) Calcium Level 9.5 mg/dL (8.5-10.1) Total Bilirubin 0.4 mg/dL (0.2-1.0) Aspartate Amino Transferase (AST) 16 U/L (15-37) Alanine Aminotransferase (ALT) 30 U/L (14-59) Alkaline Phosphatase 67 U/L (46-116) Total Protein 6.6 g/dL (6.4-8.2) Albumin 3.8 g/dL (3.4-5.0) Albumin/Globulin Ratio 1.4 (1.0-1.7) Valproic Acid Level 25 mcg/mL (50-100) L Valproic Acid Last Dose Date 12/15/2020 Valproic Acid Last Dose Time 1700 Current Medications: Meds: Laboratory Tests Test 12/16/20 05:50 White Blood Count 4.9 x10^3/uL Red Blood Count 3.87 x10^6/uL Hemoglobin 12.4 g/dL Hematocrit 36.1 % Mean Corpuscular Volume 93 fL Mean Corpuscular Hemoglobin 32 pg Mean Corpuscular Hemoglobin Concent 34 g/dL Red Cell Distribution Width 12.8 % Platelet Count 234 x10^3/uL Neutrophils (%) (Auto) 50 % Lymphocytes (%) (Auto) 34 % Monocytes (%) (Auto) 10 % Eosinophils (%) (Auto) 5 % Basophils (%) (Auto) 1 % Neutrophils # (Auto) 2.4 x10^3uL Lymphocytes # (Auto) 1.7 x10^3/uL Monocytes # (Auto) 0.5 x10^3/uL Eosinophils # (Auto) 0.3 x10^3/uL Basophils # (Auto) 0.1 x10^3/uL Sodium Level 147 mmol/L Potassium Level 4.1 mmol/L Chloride Level 109 mmol/L Carbon Dioxide Level 29 mmol/L Anion Gap 9 Blood Urea Nitrogen 31 mg/dL Creatinine 1.0 mg/dL Estimated GFR (Cockcroft-Gault) 53.0 BUN/Creatinine Ratio 31 Glucose Level 92 mg/dL Calcium Level 9.5 mg/dL Total Bilirubin 0.4 mg/dL Aspartate Amino Transf (AST/SGOT) 16 U/L Alanine Aminotransferase (ALT/SGPT) 30 U/L Alkaline Phosphatase 67 U/L Total Protein 6.6 g/dL Albumin 3.8 g/dL Albumin/Globulin Ratio 1.4 Valproic Acid (Depakene) Level 25 mcg/mL Valproic Acid Last Dose Date 12/15/2020 Valproic Acid Last Dose Time 1700 Current Medications Medications (Trade) Dose Ordered Sig/Brianne Route PRN Reason Start Time Stop Time Status Last Admin Dose Admin Lorazepam (Ativan) 1 mg STK-MED ONCE .ROUTE 12/02/20 14:25 12/02/20 14:25 DC Lorazepam (Ativan) 1 mg 1X ONCE PO 12/02/20 14:30 12/02/20 14:36 DC 12/02/20 14:31 Potassium/ Phosphorus/Sodium (Phos-Nak) 1 pkt 1X ONCE PO 12/02/20 15:00 12/02/20 15:01 Cancel Potassium Bicarbonate (Potassium Effervescent Tablet) 20 meq STK-MED ONCE .ROUTE 12/02/20 14:56 12/02/20 14:57 DC Potassium Bicarbonate (Potassium Effervescent Tablet) 20 meq 1X ONCE PO 12/02/20 15:00 12/02/20 15:01 DC 12/02/20 15:00 Acetaminophen (Tylenol) 650 mg PRN Q6HRS PRN PO MILD PAIN / TEMP > 100.3'F 12/02/20 15:45 12/15/20 09:00 Multi-Ingredient Ointment (Analgesic [place]) 1 itz PRN QID PRN TP MUSCLE PAIN 12/02/20 15:45 Al Hydroxide/Mg Hydroxide (Mylanta Plus Xs) 15 ml PRN AFTMEALHC PRN PO DYSPEPSIA 12/02/20 15:45 Magnesium Hydroxide (Milk Of Magnesia) 2,400 mg PRN QHS PRN PO CONSTIPATION 12/02/20 15:45 12/03/20 16:29 Lisinopril (Prinivil) 10 mg DAILY PO 12/03/20 09:00 12/16/20 08:27 Multivitamins/ Calcium (Thera-M Plus) 1 tab DAILY PO 12/03/20 09:00 12/16/20 08:27 Olanzapine (ZyPREXA ZYDIS) 2.5 mg PRN Q2HRS PRN PO PSYCHOSIS 12/02/20 17:00 12/16/20 19:32 Potassium Chloride (Klor-Con) 20 meq DAILYWBKFT PO 12/04/20 08:00 12/16/20 08:27 Sertraline HCl (Zoloft) 25 mg DAILY PO 12/04/20 09:00 12/06/20 21:00 DC 12/06/20 08:17 Sertraline HCl (Zoloft) 50 mg DAILY PO 12/07/20 09:00 12/16/20 08:27 Quetiapine Fumarate (SEROquel) 12.5 mg 0900 PO 12/09/20 09:00 12/10/20 16:51 DC 12/10/20 09:00 Quetiapine Fumarate (SEROquel) 12.5 mg ONCE ONCE PO 12/08/20 17:15 12/08/20 17:16 DC 12/08/20 17:15 Quetiapine Fumarate (SEROquel) 12.5 mg 1700 PO 12/09/20 18:00 12/16/20 17:18 Quetiapine Fumarate (SEROquel) 25 mg 0900 PO 12/11/20 09:00 12/16/20 08:27 Divalproex Sodium (Depakote Sprinkles) 125 mg BID PO 12/12/20 21:00 12/13/20 10:16 DC 12/13/20 08:35 Trazodone HCl (Desyrel) 50 mg PRN QHS PRN PO INSOMNIA 12/13/20 00:30 12/16/20 19:32 Divalproex Sodium (Depakote Sprinkles) 125 mg 0900,1700 PO 12/13/20 17:00 12/13/20 17:49 DC 12/13/20 16:35 Valproic Acid (Depakene) 125 mg 0900,1700 PO 12/14/20 09:00 12/16/20 17:18 I have reviewed the current psychotropics carefully including drug interactions. Risk benefit ratio favors no change other than as noted in my dictated progress note. 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
[2020-12-17 05:53] VITALS: BP 137/66
[2020-12-17] MEDS: POTASSIUM CHLORIDE 20 MEQ TABLET.ER. PO SCH (08:39)
[2020-12-17] MEDS: VALPROATE ACID 250 MG/5 ML ORAL SOLUTION PO SCH ×2 (08:39→21:00)
[2020-12-17] MEDS: SERTRALINE 50 MG TABLET. PO SCH (08:39)
[2020-12-17] MEDS: LISINOPRIL 10 MG TABLET PO SCH (08:39)
[2020-12-17] MEDS: QUEtiapine 25 MG TABLET. PO SCH ×2 (08:39→17:00)
[2020-12-17] MEDS: MULTIVITAMIN with MINERAL TABLET. PO SCH (08:39)
--- NOTE | 2020-12-17 09:45 | PDOC ---
Exam Note: Earle Note: This note is a late entry for 12/15/2020 covers elements not covered in my initial note. Subjective: The patient was seen on telehealth rounds in the afternoon of 12/15/2020 with the nursing staff taking the telehealth camera to each patient, which was on a secure portal, discussed and reviewed the chart with Ozzy APPIAH. The patient slept 6-1/2 hours previous night. She is resistive to medications. Medications are given crushed in pudding. Appetite is 75%. At times meds have to be given syringed. She has been wandering at times but redirects. Review of Systems: Ambulation impaired. No CV, , pulmonary, eye system symptoms on review. Reliability poor. Mental Status Exam: The patient is oriented to herself. Insight and judgment, recent and remote memory, attention and concentration is poor consistent with her diagnoses. Laboratory Data: Reviewed. Impression: Major neurocognitive disorder Alzheimer vascular with delusion, dep ression, and behavioral disturbance. Anxiety disorder unspecified. Impulse control disorder unspecified. Plan: Continue current psychotropics. Adjust further as clinically indicated. Assessment: Vital Signs/I&O: Vital Signs Date Time Temp Pulse Resp B/P (MAP) Pulse Ox O2 Delivery O2 Flow Rate FiO2 12/17/20 08:39 80 137/66 12/17/20 05:53 97.3 18 100 12/15/20 15:52 Room Air I & O 12/16/20 12/16/20 12/17/20 15:00 23:00 07:00 Intake Total 720 ml 480 ml Balance 720 ml 480 ml Current Medications: Meds: Current Medications Medications (Trade) Dose Ordered Sig/Brianne Route PRN Reason Start Time Stop Time Status Last Admin Dose Admin Lorazepam (Ativan) 1 mg STK-MED ONCE .ROUTE 12/02/20 14:25 12/02/20 14:25 DC Lorazepam (Ativan) 1 mg 1X ONCE PO 12/02/20 14:30 12/02/20 14:36 DC 12/02/20 14:31 Potassium/ Phosphorus/Sodium (Phos-Nak) 1 pkt 1X ONCE PO 12/02/20 15:00 12/02/20 15:01 Cancel Potassium Bicarbonate (Potassium Effervescent Tablet) 20 meq STK-MED ONCE .ROUTE 12/02/20 14:56 12/02/20 14:57 DC Potassium Bicarbonate (Potassium Effervescent Tablet) 20 meq 1X ONCE PO 12/02/20 15:00 12/02/20 15:01 DC 12/02/20 15:00 Acetaminophen (Tylenol) 650 mg PRN Q6HRS PRN PO MILD PAIN / TEMP > 100.3'F 12/02/20 15:45 12/15/20 09:00 Multi-Ingredient Ointment (Analgesic [place]) 1 itz PRN QID PRN TP MUSCLE PAIN 12/02/20 15:45 Al Hydroxide/Mg Hydroxide (Mylanta Plus Xs) 15 ml PRN AFTMEALHC PRN PO DYSPEPSIA 12/02/20 15:45 Magnesium Hydroxide (Milk Of Magnesia) 2,400 mg PRN QHS PRN PO CONSTIPATION 12/02/20 15:45 12/03/20 16:29 Lisinopril (Prinivil) 10 mg DAILY PO 12/03/20 09:00 12/17/20 08:39 Multivitamins/ Calcium (Thera-M Plus) 1 tab DAILY PO 12/03/20 09:00 12/17/20 08:39 Olanzapine (ZyPREXA ZYDIS) 2.5 mg PRN Q2HRS PRN PO PSYCHOSIS 12/02/20 17:00 12/16/20 19:32 Potassium Chloride (Klor-Con) 20 meq DAILYWBKFT PO 12/04/20 08:00 12/17/20 08:39 Sertraline HCl (Zoloft) 25 mg DAILY PO 12/04/20 09:00 12/06/20 21:00 DC 12/06/20 08:17 Sertraline HCl (Zoloft) 50 mg DAILY PO 12/07/20 09:00 12/17/20 08:39 Quetiapine Fumarate (SEROquel) 12.5 mg 0900 PO 12/09/20 09:00 12/10/20 16:51 DC 12/10/20 09:00 Quetiapine Fumarate (SEROquel) 12.5 mg ONCE ONCE PO 12/08/20 17:15 12/08/20 17:16 DC 12/08/20 17:15 Quetiapine Fumarate (SEROquel) 12.5 mg 1700 PO 12/09/20 18:00 12/16/20 17:18 Quetiapine Fumarate (SEROquel) 25 mg 0900 PO 12/11/20 09:00 12/17/20 08:39 Divalproex Sodium (Depakote Sprinkles) 125 mg BID PO 12/12/20 21:00 12/13/20 10:16 DC 12/13/20 08:35 Trazodone HCl (Desyrel) 50 mg PRN QHS PRN PO INSOMNIA 12/13/20 00:30 12/16/20 19:32 Divalproex Sodium (Depakote Sprinkles) 125 mg 0900,1700 PO 12/13/20 17:00 12/13/20 17:49 DC 12/13/20 16:35 Valproic Acid (Depakene) 125 mg 0900,1700 PO 12/14/20 09:00 12/17/20 08:39 I have reviewed the current psychotropics carefully including drug interactions. Risk benefit ratio favors no change other than as noted in my dictated progress note. Diagnosis: Problems: (1) Major neurocognitive disorder (2) Impulse control disorder, unspecified (3) Anxiety disorder, unspecified (4) Dementia, vascular, with depression (5) Dementia, vascular, with delusions (6) Dementia in Alzheimer's disease with depression (7) Dementia in Alzheimer's disease with delusions (8) Dementia of the Alzheimer's type with early onset with behavioral disturbance EMILY CHARLES MD Dec 17, 2020 09:45
--- NOTE | 2020-12-17 10:15 | PDOC ---
Exam Note: Earle Note: This note is a late entry for 12/16/2020 covers elements not covered in my initial note. Subjective: The patient was seen on telehealth rounds in the afternoon of 12/16/2020 with the nursing staff taking the telehealth camera to each patient, which was on a secure portal, discussed and reviewed the chart with Rolan APPIAH. The patient slept 8 hours previous night. She is able to verbalize some words clearer than in the past. She seemed to remember how to take her medications which itself is a slight improvement. She remains confused, walking up and down the hallway, redirectable. Review of Systems: Ambulation impaired. No CV, , pulmonary, eye system symptoms on review. Reliability poor. Mental Status Exam: The patient is oriented to herself. Insight and judgment, recent and remote memory, attention and concentration is poor consistent with her diagnoses. Laboratory Data: Reviewed. Impression: Major neurocognitive disorder Alzheimer vascular with delusion, depression, and behavioral disturbance. Anxiety disorder unspecified. Impulse control disorder unspecified. Plan: Continue current psychotropics. We need to adjust the Depakote if the hyperactivity persists. Assessment: Vital Signs/I&O: Vital Signs Date Time Temp Pulse Resp B/P (MAP) Pulse Ox O2 Delivery O2 Flow Rate FiO2 12/17/20 08:39 80 137/66 12/17/20 05:53 97.3 18 100 12/15/20 15:52 Room Air I & O 12/16/20 12/16/20 12/17/20 15:00 23:00 07:00 Intake Total 720 ml 480 ml Balance 720 ml 480 ml Current Medications: Meds: Current Medications Medications (Trade) Dose Ordered Sig/Brianne Route PRN Reason Start Time Stop Time Status Last Admin Dose Admin Lorazepam (Ativan) 1 mg STK-MED ONCE .ROUTE 12/02/20 14:25 12/02/20 14:25 DC Lorazepam (Ativan) 1 mg 1X ONCE PO 12/02/20 14:30 12/02/20 14:36 DC 12/02/20 14:31 Potassium/ Phosphorus/Sodium (Phos-Nak) 1 pkt 1X ONCE PO 12/02/20 15:00 12/02/20 15:01 Cancel Potassium Bicarbonate (Potassium Effervescent Tablet) 20 meq STK-MED ONCE .ROUTE 12/02/20 14:56 12/02/20 14:57 DC Potassium Bicarbonate (Potassium Effervescent Tablet) 20 meq 1X ONCE PO 12/02/20 15:00 12/02/20 15:01 DC 12/02/20 15:00 Acetaminophen (Tylenol) 650 mg PRN Q6HRS PRN PO MILD PAIN / TEMP > 100.3'F 12/02/20 15:45 12/15/20 09:00 Multi-Ingredient Ointment (Analgesic [place]) 1 itz PRN QID PRN TP MUSCLE PAIN 12/02/20 15:45 Al Hydroxide/Mg Hydroxide (Mylanta Plus Xs) 15 ml PRN AFTMEALHC PRN PO DYSPEPSIA 12/02/20 15:45 Magnesium Hydroxide (Milk Of Magnesia) 2,400 mg PRN QHS PRN PO CONSTIPATION 12/02/20 15:45 12/03/20 16:29 Lisinopril (Prinivil) 10 mg DAILY PO 12/03/20 09:00 12/17/20 08:39 Multivitamins/ Calcium (Thera-M Plus) 1 tab DAILY PO 12/03/20 09:00 12/17/20 08:39 Olanzapine (ZyPREXA ZYDIS) 2.5 mg PRN Q2HRS PRN PO PSYCHOSIS 12/02/20 17:00 12/16/20 19:32 Potassium Chloride (Klor-Con) 20 meq DAILYWBKFT PO 12/04/20 08:00 12/17/20 08:39 Sertraline HCl (Zoloft) 25 mg DAILY PO 12/04/20 09:00 12/06/20 21:00 DC 12/06/20 08:17 Sertraline HCl (Zoloft) 50 mg DAILY PO 12/07/20 09:00 12/17/20 08:39 Quetiapine Fumarate (SEROquel) 12.5 mg 0900 PO 12/09/20 09:00 12/10/20 16:51 DC 12/10/20 09:00 Quetiapine Fumarate (SEROquel) 12.5 mg ONCE ONCE PO 12/08/20 17:15 12/08/20 17:16 DC 12/08/20 17:15 Quetiapine Fumarate (SEROquel) 12.5 mg 1700 PO 12/09/20 18:00 12/16/20 17:18 Quetiapine Fumarate (SEROquel) 25 mg 0900 PO 12/11/20 09:00 12/17/20 08:39 Divalproex Sodium (Depakote Sprinkles) 125 mg BID PO 12/12/20 21:00 12/13/20 10:16 DC 12/13/20 08:35 Trazodone HCl (Desyrel) 50 mg PRN QHS PRN PO INSOMNIA 12/13/20 00:30 12/16/20 19:32 Divalproex Sodium (Depakote Sprinkles) 125 mg 0900,1700 PO 12/13/20 17:00 12/13/20 17:49 DC 12/13/20 16:35 Valproic Acid (Depakene) 125 mg 0900,1700 PO 12/14/20 09:00 12/17/20 08:39 I have reviewed the current psychotropics carefully including drug interactions. Risk benefit ratio favors no change other than as noted in my dictated progress note. Diagnosis: Problems: (1) Major neurocognitive disorder (2) Impulse control disorder, unspecified (3) Anxiety disorder, unspecified (4) Dementia, vascular, with depression (5) Dementia, vascular, with delusions (6) Dementia in Alzheimer's disease with depression (7) Dementia in Alzheimer's disease with delusions (8) Dementia of the Alzheimer's type with early onset with behavioral disturbance EMILY CHARLES MD Dec 17, 2020 10:15
[2020-12-17 16:06] VITALS: BP 124/80
--- NOTE | 2020-12-17 22:10 | PDOC ---
Exam Note: Earle Note: Please also refer to the separate dictated note~for this date of service dictated separately.~Patient seen individually. Discussed the patient with Nursing staff reviewed the chart.~Reviewed interim history and current functioning. Reviewed vital signs,~Labs/ Radiology~and current medications noted below. Continue current treatment with the changes noted in the dictated addendum note Assessment: Vital Signs/I&O: Vital Signs Date Time Temp Pulse Resp B/P (MAP) Pulse Ox O2 Delivery O2 Flow Rate FiO2 12/17/20 16:06 96.9 70 20 124/80 (95) 95 12/15/20 15:52 Room Air I & O 12/16/20 12/16/20 12/17/20 15:00 23:00 07:00 Intake Total 720 ml 480 ml Balance 720 ml 480 ml Current Medications: Meds: Current Medications Medications (Trade) Dose Ordered Sig/Brianne Route PRN Reason Start Time Stop Time Status Last Admin Dose Admin Lorazepam (Ativan) 1 mg STK-MED ONCE .ROUTE 12/02/20 14:25 12/02/20 14:25 DC Lorazepam (Ativan) 1 mg 1X ONCE PO 12/02/20 14:30 12/02/20 14:36 DC 12/02/20 14:31 Potassium/ Phosphorus/Sodium (Phos-Nak) 1 pkt 1X ONCE PO 12/02/20 15:00 12/02/20 15:01 Cancel Potassium Bicarbonate (Potassium Effervescent Tablet) 20 meq STK-MED ONCE .ROUTE 12/02/20 14:56 12/02/20 14:57 DC Potassium Bicarbonate (Potassium Effervescent Tablet) 20 meq 1X ONCE PO 12/02/20 15:00 12/02/20 15:01 DC 12/02/20 15:00 Acetaminophen (Tylenol) 650 mg PRN Q6HRS PRN PO MILD PAIN / TEMP > 100.3'F 12/02/20 15:45 12/15/20 09:00 Multi-Ingredient Ointment (Analgesic [place]) 1 itz PRN QID PRN TP MUSCLE PAIN 12/02/20 15:45 Al Hydroxide/Mg Hydroxide (Mylanta Plus Xs) 15 ml PRN AFTMEALHC PRN PO DYSPEPSIA 12/02/20 15:45 Magnesium Hydroxide (Milk Of Magnesia) 2,400 mg PRN QHS PRN PO CONSTIPATION 12/02/20 15:45 12/03/20 16:29 Lisinopril (Prinivil) 10 mg DAILY PO 12/03/20 09:00 12/17/20 08:39 Multivitamins/ Calcium (Thera-M Plus) 1 tab DAILY PO 12/03/20 09:00 12/17/20 08:39 Olanzapine (ZyPREXA ZYDIS) 2.5 mg PRN Q2HRS PRN PO PSYCHOSIS 12/02/20 17:00 12/17/20 16:21 Potassium Chloride (Klor-Con) 20 meq DAILYWBKFT PO 12/04/20 08:00 12/17/20 08:39 Sertraline HCl (Zoloft) 25 mg DAILY PO 12/04/20 09:00 12/06/20 21:00 DC 12/06/20 08:17 Sertraline HCl (Zoloft) 50 mg DAILY PO 12/07/20 09:00 12/17/20 08:39 Quetiapine Fumarate (SEROquel) 12.5 mg 0900 PO 12/09/20 09:00 12/10/20 16:51 DC 12/10/20 09:00 Quetiapine Fumarate (SEROquel) 12.5 mg ONCE ONCE PO 12/08/20 17:15 12/08/20 17:16 DC 12/08/20 17:15 Quetiapine Fumarate (SEROquel) 12.5 mg 1700 PO 12/09/20 18:00 12/17/20 17:00 Quetiapine Fumarate (SEROquel) 25 mg 0900 PO 12/11/20 09:00 12/17/20 08:39 Divalproex Sodium (Depakote Sprinkles) 125 mg BID PO 12/12/20 21:00 12/13/20 10:16 DC 12/13/20 08:35 Trazodone HCl (Desyrel) 50 mg PRN QHS PRN PO INSOMNIA 12/13/20 00:30 12/16/20 19:32 Divalproex Sodium (Depakote Sprinkles) 125 mg 0900,1700 PO 12/13/20 17:00 12/13/20 17:49 DC 12/13/20 16:35 Valproic Acid (Depakene) 125 mg 0900,1700 PO 12/14/20 09:00 12/17/20 15:35 DC 12/17/20 08:39 Valproic Acid (Depakene) 125 mg [id number] PO 12/17/20 21:00 12/17/20 21:00 Current Medications Medications (Trade) Dose Ordered Sig/Brianne Route PRN Reason Start Time Stop Time Status Last Admin Dose Admin Valproic Acid (Depakene) 125 mg [id number] PO 12/17/20 21:00 12/17/20 21:00 I have reviewed the current psychotropics carefully including drug interactions. Risk benefit ratio favors no change other than as noted in my dictated progress note. Diagnosis: Problems: (1) Major neurocognitive disorder (2) Impulse control disorder, unspecified (3) Anxiety disorder, unspecified (4) Dementia, vascular, with depression (5) Dementia, vascular, with delusions (6) Dementia in Alzheimer's disease with depression (7) Dementia in Alzheimer's disease with delusions (8) Dementia of the Alzheimer's type with early onset with behavioral disturbance EMILY CHARLES MD Dec 17, 2020 22:10
[2020-12-18 05:51] VITALS: BP 108/70
[2020-12-18] MEDS: POTASSIUM CHLORIDE 20 MEQ TABLET.ER. PO SCH (08:00)
[2020-12-18] MEDS: VALPROATE ACID 250 MG/5 ML ORAL SOLUTION PO SCH ×3 (08:11→21:00)
[2020-12-18] MEDS: LISINOPRIL 10 MG TABLET PO SCH (08:11)
[2020-12-18] MEDS: MULTIVITAMIN with MINERAL TABLET. PO SCH (08:12)
[2020-12-18] MEDS: SERTRALINE 50 MG TABLET. PO SCH (08:12)
[2020-12-18] MEDS: QUEtiapine 25 MG TABLET. PO SCH ×2 (08:12→17:00)
[2020-12-18 16:20] VITALS: BP 128/83
--- NOTE | 2020-12-18 22:46 | PDOC ---
Exam Note: Earle Note: Please also refer to the separate dictated note~for this date of service dictated separately.~Patient seen individually. Discussed the patient with Nursing staff reviewed the chart.~Reviewed interim history and current functioning. Reviewed vital signs,~Labs/ Radiology~and current medications noted below. Continue current treatment with the changes noted in the dictated addendum note Assessment: Vital Signs/I&O: Vital Signs Date Time Temp Pulse Resp B/P (MAP) Pulse Ox O2 Delivery O2 Flow Rate FiO2 12/18/20 16:20 97.7 107 20 128/83 (98) 100 Room Air I & O 12/17/20 12/17/20 12/18/20 15:00 23:00 07:00 Intake Total 360 ml 720 ml Balance 360 ml 720 ml Current Medications: Meds: Current Medications Medications (Trade) Dose Ordered Sig/Brianne Route PRN Reason Start Time Stop Time Status Last Admin Dose Admin Lorazepam (Ativan) 1 mg STK-MED ONCE .ROUTE 12/02/20 14:25 12/02/20 14:25 DC Lorazepam (Ativan) 1 mg 1X ONCE PO 12/02/20 14:30 12/02/20 14:36 DC 12/02/20 14:31 Potassium/ Phosphorus/Sodium (Phos-Nak) 1 pkt 1X ONCE PO 12/02/20 15:00 12/02/20 15:01 Cancel Potassium Bicarbonate (Potassium Effervescent Tablet) 20 meq STK-MED ONCE .ROUTE 12/02/20 14:56 12/02/20 14:57 DC Potassium Bicarbonate (Potassium Effervescent Tablet) 20 meq 1X ONCE PO 12/02/20 15:00 12/02/20 15:01 DC 12/02/20 15:00 Acetaminophen (Tylenol) 650 mg PRN Q6HRS PRN PO MILD PAIN / TEMP > 100.3'F 12/02/20 15:45 12/15/20 09:00 Multi-Ingredient Ointment (Analgesic [place]) 1 itz PRN QID PRN TP MUSCLE PAIN 12/02/20 15:45 Al Hydroxide/Mg Hydroxide (Mylanta Plus Xs) 15 ml PRN AFTMEALHC PRN PO DYSPEPSIA 12/02/20 15:45 Magnesium Hydroxide (Milk Of Magnesia) 2,400 mg PRN QHS PRN PO CONSTIPATION 12/02/20 15:45 6/15/21 16:29 Lisinopril (Prinivil) 10 mg DAILY PO 12/03/20 09:00 12/18/20 08:11 Multivitamins/ Calcium (Thera-M Plus) 1 tab DAILY PO 12/03/20 09:00 12/18/20 08:12 Olanzapine (ZyPREXA ZYDIS) 2.5 mg PRN Q2HRS PRN PO PSYCHOSIS 12/02/20 17:00 12/17/20 16:21 Potassium Chloride (Klor-Con) 20 meq DAILYWBKFT PO 12/04/20 08:00 12/18/20 08:00 Sertraline HCl (Zoloft) 25 mg DAILY PO 12/04/20 09:00 12/06/20 21:00 DC 12/06/20 08:17 Sertraline HCl (Zoloft) 50 mg DAILY PO 12/07/20 09:00 12/18/20 08:12 Quetiapine Fumarate (SEROquel) 12.5 mg 0900 PO 12/09/20 09:00 12/10/20 16:51 DC 12/10/20 09:00 Quetiapine Fumarate (SEROquel) 12.5 mg ONCE ONCE PO 12/08/20 17:15 12/08/20 17:16 DC 12/08/20 17:15 Quetiapine Fumarate (SEROquel) 12.5 mg 1700 PO 12/09/20 18:00 12/18/20 17:00 Quetiapine Fumarate (SEROquel) 25 mg 0900 PO 12/11/20 09:00 12/18/20 08:12 Divalproex Sodium (Depakote Sprinkles) 125 mg BID PO 12/12/20 21:00 12/13/20 10:16 DC 12/13/20 08:35 Trazodone HCl (Desyrel) 50 mg PRN QHS PRN PO INSOMNIA 12/13/20 00:30 12/16/20 19:32 Divalproex Sodium (Depakote Sprinkles) 125 mg 0900,1700 PO 12/13/20 17:00 12/13/20 17:49 DC 12/13/20 16:35 Valproic Acid (Depakene) 125 mg 0900,1700 PO 12/14/20 09:00 12/17/20 15:35 DC 12/17/20 08:39 Valproic Acid (Depakene) 125 mg [id number] PO 12/17/20 21:00 12/18/20 21:00 I have reviewed the current psychotropics carefully including drug interactions. Risk benefit ratio favors no change other than as noted in my dictated progress note. Diagnosis: Problems: (1) Major neurocognitive disorder (2) Impulse control disorder, unspecified (3) Anxiety disorder, unspecified (4) Dementia, vascular, with depression (5) Dementia, vascular, with delusions (6) Dementia in Alzheimer's disease with depression (7) Dementia in Alzheimer's disease with delusions (8) Dementia of the Alzheimer's type with early onset with behavioral disturbance EMILY CHARLES MD Dec 18, 2020 22:46
[2020-12-19 06:09] VITALS: BP 133/71
[2020-12-19] MEDS: POTASSIUM CHLORIDE 20 MEQ TABLET.ER. PO SCH (08:00)
[2020-12-19] MEDS: MULTIVITAMIN with MINERAL TABLET. PO SCH (08:06)
[2020-12-19] MEDS: QUEtiapine 25 MG TABLET. PO SCH ×2 (08:06→17:00)
[2020-12-19] MEDS: VALPROATE ACID 250 MG/5 ML ORAL SOLUTION PO SCH ×3 (08:06→22:03)
[2020-12-19] MEDS: LISINOPRIL 10 MG TABLET PO SCH (08:06)
[2020-12-19] MEDS: SERTRALINE 50 MG TABLET. PO SCH (08:07)
--- NOTE | 2020-12-19 09:22 | PDOC ---
Exam Note: Earle Note: This note is a late entry for 12/17/2020 covers elements not covered in my initial note. Subjective: The patient was seen on telehealth rounds in the afternoon of 12/17/2020 with the nursing staff taking the telehealth camera to each patient, which was on a secure portal, discussed and reviewed the chart with Carmella APPIAH. The patient slept 7 hours previous night. She has been pacing less. Appetite 25%. Valproic acid level 25. She remains confused. Review of Systems: Ambulation impaired. No CV, , pulmonary, eye system symptoms on review. Mental Status Exam: The patient is oriented to herself. Insight and judgment, recent and remote memory, attention and concentration is poor consistent with her diagnoses. Laboratory Data: Reviewed. Impression: Major neurocognitive disorder Alzheimer vascular with delusion, depression, and behavioral disturbance. Anxiety disorder unspecified. Impulse control disorder unspecified. Plan: Continue current psychotropics. Valproic acid level subtherapeutic at 25. Increase Depakene from 125 mg twice a day to 3 times a day. Check CBC, CMP, valproic acid level in 3 days. Adjust further as clinically indicated. Assessment: Vital Signs/I&O: Vital Signs Date Time Temp Pulse Resp B/P (MAP) Pulse Ox O2 Delivery O2 Flow Rate FiO2 12/19/20 08:06 75 133/71 12/19/20 06:09 97.4 20 97 Room Air I & O 12/18/20 12/18/20 12/19/20 15:00 23:00 07:00 Intake Total 780 ml 480 ml Balance 780 ml 480 ml Current Medications: Meds: Current Medications Medications (Trade) Dose Ordered Sig/Brianne Route PRN Reason Start Time Stop Time Status Last Admin Dose Admin Lorazepam (Ativan) 1 mg STK-MED ONCE .ROUTE 12/02/20 14:25 12/02/20 14:25 DC Lorazepam (Ativan) 1 mg 1X ONCE PO 12/02/20 14:30 12/02/20 14:36 DC 12/02/20 14:31 Potassium/ Phosphorus/Sodium (Phos-Nak) 1 pkt 1X ONCE PO 12/02/20 15:00 12/02/20 15:01 Cancel Potassium Bicarbonate (Potassium Effervescent Tablet) 20 meq STK-MED ONCE .ROUTE 12/02/20 14:56 12/02/20 14:57 DC Potassium Bicarbonate (Potassium Effervescent Tablet) 20 meq 1X ONCE PO 12/02/20 15:00 12/02/20 15:01 DC 12/02/20 15:00 Acetaminophen (Tylenol) 650 mg PRN Q6HRS PRN PO MILD PAIN / TEMP > 100.3'F 12/02/20 15:45 12/15/20 09:00 Multi-Ingredient Ointment (Analgesic [place]) 1 itz PRN QID PRN TP MUSCLE PAIN 12/02/20 15:45 Al Hydroxide/Mg Hydroxide (Mylanta Plus Xs) 15 ml PRN AFTMEALHC PRN PO DYSPEPSIA 12/02/20 15:45 Magnesium Hydroxide (Milk Of Magnesia) 2,400 mg PRN QHS PRN PO CONSTIPATION 12/02/20 15:45 12/03/20 16:29 Lisinopril (Prinivil) 10 mg DAILY PO 12/03/20 09:00 12/19/20 08:06 Multivitamins/ Calcium (Thera-M Plus) 1 tab DAILY PO 12/03/20 09:00 12/19/20 08:06 Olanzapine (ZyPREXA ZYDIS) 2.5 mg PRN Q2HRS PRN PO PSYCHOSIS 12/02/20 17:00 12/17/20 16:21 Potassium Chloride (Klor-Con) 20 meq DAILYWBKFT PO 12/04/20 08:00 12/19/20 08:00 Sertraline HCl (Zoloft) 25 mg DAILY PO 12/04/20 09:00 12/06/20 21:00 DC 12/06/20 08:17 Sertraline HCl (Zoloft) 50 mg DAILY PO 12/07/20 09:00 12/19/20 08:07 Quetiapine Fumarate (SEROquel) 12.5 mg 0900 PO 12/09/20 09:00 12/10/20 16:51 DC 12/10/20 09:00 Quetiapine Fumarate (SEROquel) 12.5 mg ONCE ONCE PO 12/08/20 17:15 12/08/20 17:16 DC 12/08/20 17:15 Quetiapine Fumarate (SEROquel) 12.5 mg 1700 PO 12/09/20 18:00 12/18/20 17:00 Quetiapine Fumarate (SEROquel) 25 mg 0900 PO 12/11/20 09:00 12/19/20 08:06 Divalproex Sodium (Depakote Sprinkles) 125 mg BID PO 12/12/20 21:00 12/13/20 10:16 DC 12/13/20 08:35 Trazodone HCl (Desyrel) 50 mg PRN QHS PRN PO INSOMNIA 12/13/20 00:30 12/16/20 19:32 Divalproex Sodium (Depakote Sprinkles) 125 mg 0900,1700 PO 12/13/20 17:00 12/13/20 17:49 DC 12/13/20 16:35 Valproic Acid (Depakene) 125 mg 0900,1700 PO 12/14/20 09:00 12/17/20 15:35 DC 12/17/20 08:39 Valproic Acid (Depakene) 125 mg [id number] PO 12/17/20 21:00 12/19/20 08:06 I have reviewed the current psychotropics carefully including drug interactions. Risk benefit ratio favors no change other than as noted in my dictated progress note. Diagnosis: Problems: (1) Major neurocognitive disorder (2) Impulse control disorder, unspecified (3) Anxiety disorder, unspecified (4) Dementia, vascular, with depression (5) Dementia, vascular, with delusions (6) Dementia in Alzheimer's disease with depression (7) Dementia in Alzheimer's disease with delusions (8) Dementia of the Alzheimer's type with early onset with behavioral disturbance EMILY CHARLES MD Dec 19, 2020 09:22
[2020-12-19 16:39] VITALS: BP 134/60
--- NOTE | 2020-12-19 22:12 | PDOC ---
Exam Note: Earle Note: Please also refer to the separate dictated note~for this date of service dictated separately.~Patient seen individually. Discussed the patient with Nursing staff reviewed the chart.~Reviewed interim history and current functioning. Reviewed vital signs,~Labs/ Radiology~and current medications noted below. Continue current treatment with the changes noted in the dictated addendum note Assessment: Vital Signs/I&O: Vital Signs Date Time Temp Pulse Resp B/P (MAP) Pulse Ox O2 Delivery O2 Flow Rate FiO2 12/19/20 16:39 97.1 99 16 134/60 (84) 96 Room Air I & O 12/18/20 12/18/20 12/19/20 15:00 23:00 07:00 Intake Total 780 ml 480 ml Balance 780 ml 480 ml Current Medications: Meds: Current Medications Medications (Trade) Dose Ordered Sig/Brianne Route PRN Reason Start Time Stop Time Status Last Admin Dose Admin Lorazepam (Ativan) 1 mg STK-MED ONCE .ROUTE 12/02/20 14:25 12/02/20 14:25 DC Lorazepam (Ativan) 1 mg 1X ONCE PO 12/02/20 14:30 12/02/20 14:36 DC 12/02/20 14:31 Potassium/ Phosphorus/Sodium (Phos-Nak) 1 pkt 1X ONCE PO 12/02/20 15:00 12/02/20 15:01 Cancel Potassium Bicarbonate (Potassium Effervescent Tablet) 20 meq STK-MED ONCE .ROUTE 12/02/20 14:56 12/02/20 14:57 DC Potassium Bicarbonate (Potassium Effervescent Tablet) 20 meq 1X ONCE PO 12/02/20 15:00 12/02/20 15:01 DC 12/02/20 15:00 Acetaminophen (Tylenol) 650 mg PRN Q6HRS PRN PO MILD PAIN / TEMP > 100.3'F 12/02/20 15:45 12/15/20 09:00 Multi-Ingredient Ointment (Analgesic [place]) 1 itz PRN QID PRN TP MUSCLE PAIN 12/02/20 15:45 Al Hydroxide/Mg Hydroxide (Mylanta Plus Xs) 15 ml PRN AFTMEALHC PRN PO DYSPEPSIA 12/02/20 15:45 Magnesium Hydroxide (Milk Of Magnesia) 2,400 mg PRN QHS PRN PO CONSTIPATION 12/02/20 15:45 6/15/21 16:29 Lisinopril (Prinivil) 10 mg DAILY PO 12/03/20 09:00 12/19/20 08:06 Multivitamins/ Calcium (Thera-M Plus) 1 tab DAILY PO 12/03/20 09:00 12/19/20 08:06 Olanzapine (ZyPREXA ZYDIS) 2.5 mg PRN Q2HRS PRN PO PSYCHOSIS 12/02/20 17:00 12/19/20 17:30 Potassium Chloride (Klor-Con) 20 meq DAILYWBKFT PO 12/04/20 08:00 12/19/20 08:00 Sertraline HCl (Zoloft) 25 mg DAILY PO 12/04/20 09:00 12/06/20 21:00 DC 12/06/20 08:17 Sertraline HCl (Zoloft) 50 mg DAILY PO 12/07/20 09:00 12/19/20 08:07 Quetiapine Fumarate (SEROquel) 12.5 mg 0900 PO 12/09/20 09:00 12/10/20 16:51 DC 12/10/20 09:00 Quetiapine Fumarate (SEROquel) 12.5 mg ONCE ONCE PO 12/08/20 17:15 12/08/20 17:16 DC 12/08/20 17:15 Quetiapine Fumarate (SEROquel) 12.5 mg 1700 PO 12/09/20 18:00 12/19/20 17:00 Quetiapine Fumarate (SEROquel) 25 mg 0900 PO 12/11/20 09:00 12/19/20 08:06 Divalproex Sodium (Depakote Sprinkles) 125 mg BID PO 12/12/20 21:00 12/13/20 10:16 DC 12/13/20 08:35 Trazodone HCl (Desyrel) 50 mg PRN QHS PRN PO INSOMNIA 12/13/20 00:30 12/16/20 19:32 Divalproex Sodium (Depakote Sprinkles) 125 mg 0900,1700 PO 12/13/20 17:00 12/13/20 17:49 DC 12/13/20 16:35 Valproic Acid (Depakene) 125 mg 0900,1700 PO 12/14/20 09:00 12/17/20 15:35 DC 12/17/20 08:39 Valproic Acid (Depakene) 125 mg [id number] PO 12/17/20 21:00 12/19/20 22:03 I have reviewed the current psychotropics carefully including drug interactions. Risk benefit ratio favors no change other than as noted in my dictated progress note. Diagnosis: Problems: (1) Major neurocognitive disorder (2) Impulse control disorder, unspecified (3) Anxiety disorder, unspecified (4) Dementia, vascular, with depression (5) Dementia, vascular, with delusions (6) Dementia in Alzheimer's disease with depression (7) Dementia in Alzheimer's disease with delusions (8) Dementia of the Alzheimer's type with early onset with behavioral disturbance EMILY CHARLES MD Dec 19, 2020 22:12
[2020-12-20 05:54] VITALS: BP 130/77
[2020-12-20 06:05] LABS: BASO # 0.1 x10^3/uL (0.0-0.2); BASO % 3 % (0-3); EOS # 0.2 x10^3/uL (0.0-0.7); EOS % 3 % (0-3); HEMATOCRIT 37.8 % (36.0-47.0); HEMOGLOBIN 12.8 g/dL (12.0-15.5); LYMPH # 1.4 x10^3/uL (1.0-4.8); LYMPH % 26 % (24-48); MEAN CORPUSCULAR HEMOGLOBIN 32 pg (25-35); MEAN CORPUSCULAR HGB CONC 34 g/dL (31-37); MEAN CORPUSCULAR VOLUME 94 fL (79-100); MONO # 0.6 x10^3/uL (0.0-1.1); MONO % 12 % (0-9); NEUT # 2.9 x10^3uL (1.8-7.7); NEUT % 57 % (31-73); PLATELET COUNT 244 x10^3/uL (140-400); RED BLOOD COUNT 4.05 x10^6/uL (3.50-5.40); RED CELL DISTRIBUTION WIDTH 12.7 % (11.5-14.5); WHITE BLOOD COUNT 5.2 x10^3/uL (4.0-11.0)
[2020-12-20 06:21] LABS: ALBUMIN/GLOBULIN RATIO 1.4 (1.0-1.7); ALK PHOS 68 U/L (46-116); ALT (SGPT) 37 U/L (14-59); ANION GAP 7 (6-14); AST (SGOT) 23 U/L (15-37); BLOOD UREA NITROGEN 13 mg/dL (7-20); BUN/CREATININE RATIO 14 (6-20); CALCIUM 9.4 mg/dL (8.5-10.1); CARBON DIOXIDE 29 mmol/L (21-32); CHLORIDE 106 mmol/L (98-107); CREATININE 0.9 mg/dL (0.6-1.0); GFR 59.8; GLUCOSE 98 mg/dL (70-99); SODIUM 142 mmol/L (136-145); TOTAL BILIRUBIN 0.4 mg/dL (0.2-1.0); TOTAL PROTEIN 6.9 g/dL (6.4-8.2)
[2020-12-20 06:30] LABS: VAL ACID 39 mcg/mL (50-100)
[2020-12-20] MEDS: POTASSIUM CHLORIDE 20 MEQ TABLET.ER. PO SCH (08:00)
[2020-12-20] MEDS: VALPROATE ACID 250 MG/5 ML ORAL SOLUTION PO SCH ×3 (08:26→20:13)
[2020-12-20] MEDS: LISINOPRIL 10 MG TABLET PO SCH (08:26)
[2020-12-20] MEDS: SERTRALINE 50 MG TABLET. PO SCH (08:27)
[2020-12-20] MEDS: QUEtiapine 25 MG TABLET. PO SCH ×2 (08:27→16:20)
[2020-12-20] MEDS: MULTIVITAMIN with MINERAL TABLET. PO SCH (08:27)
[2020-12-20 16:13] VITALS: BP 103/58
--- NOTE | 2020-12-20 22:15 | PDOC ---
Exam Note: Earle Note: This note is a late entry for 12/18/2020 covers elements not covered in my initial note. Subjective: The patient was seen on telehealth rounds in the afternoon of 12/18/2020 as an option during the COVID-19 pandemic period with Tiffany APPIAH, discussed and reviewed the chart. The patient slept 6-1/4 hours previous night. She takes meds in orange juice. She has been less agitated, less running up and down the hallway. No p.r.n.s noted to be given. Review of Systems: Ambulation impaired. No CV, , pulmonary, eye system symptoms on review. Mental Status Exam: The patient is oriented to herself. Insight and judgment, recent and remote memory, attention and concentration is poor consistent with her diagnoses. Laboratory Data: Reviewed. Impression: Major neurocognitive disorder Alzheimer vascular with delusion, depression, and behavioral disturbance. Anxiety disorder unspecified. Impulse control disorder unspecified. Plan: Continue current psychotropics. Assessment: Vital Signs/I&O: Vital Signs Date Time Temp Pulse Resp B/P (MAP) Pulse Ox O2 Delivery O2 Flow Rate FiO2 12/20/20 16:13 97.2 84 18 103/58 (73) 97 12/20/20 05:54 Room Air I & O 12/19/20 12/19/20 12/20/20 15:00 23:00 07:00 Intake Total 480 ml 240 ml 120 ml Balance 480 ml 240 ml 120 ml Labs: Laboratory Tests Test 12/20/20 05:55 White Blood Count 5.2 x10^3/uL (4.0-11.0) Red Blood Count 4.05 x10^6/uL (3.50-5.40) Hemoglobin 12.8 g/dL (12.0-15.5) Hematocrit 37.8 % (36.0-47.0) Mean Corpuscular Volume 94 fL (79-100) Mean Corpuscular Hemoglobin 32 pg (25-35) Mean Corpuscular Hemoglobin Concent 34 g/dL (31-37) Red Cell Distribution Width 12.7 % (11.5-14.5) Platelet Count 244 x10^3/uL (140-400) Neutrophils (%) (Auto) 57 % (31-73) Lymphocytes (%) (Auto) 26 % (24-48) Monocytes (%) (Auto) 12 % (0-9) H Eosinophils (%) (Auto) 3 % (0-3) Basophils (%) (Auto) 3 % (0-3) Neutrophils # (Auto) 2.9 x10^3uL (1.8-7.7) Lymphocytes # (Auto) 1.4 x10^3/uL (1.0-4.8) Monocytes # (Auto) 0.6 x10^3/uL (0.0-1.1) Eosinophils # (Auto) 0.2 x10^3/uL (0.0-0.7) Basophils # (Auto) 0.1 x10^3/uL (0.0-0.2) Sodium Level 142 mmol/L (136-145) Potassium Level 4.0 mmol/L (3.5-5.1) Chloride Level 106 mmol/L (98-107) Carbon Dioxide Level 29 mmol/L (21-32) Anion Gap 7 (6-14) Blood Urea Nitrogen 13 mg/dL (7-20) Creatinine 0.9 mg/dL (0.6-1.0) Estimated GFR (Cockcroft-Gault) 59.8 BUN/Creatinine Ratio 14 (6-20) Glucose Level 98 mg/dL (70-99) Calcium Level 9.4 mg/dL (8.5-10.1) Total Bilirubin 0.4 mg/dL (0.2-1.0) Aspartate Amino Transferase (AST) 23 U/L (15-37) Alanine Aminotransferase (ALT) 37 U/L (14-59) Alkaline Phosphatase 68 U/L (46-116) Total Protein 6.9 g/dL (6.4-8.2) Albumin 4.0 g/dL (3.4-5.0) Albumin/Globulin Ratio 1.4 (1.0-1.7) Valproic Acid Level 39 mcg/mL (50-100) L Valproic Acid Last Dose Date Unknown Valproic Acid Last Dose Time Unknown Current Medications: Meds: Laboratory Tests Test 12/20/20 05:55 White Blood Count 5.2 x10^3/uL Red Blood Count 4.05 x10^6/uL Hemoglobin 12.8 g/dL Hematocrit 37.8 % Mean Corpuscular Volume 94 fL Mean Corpuscular Hemoglobin 32 pg Mean Corpuscular Hemoglobin Concent 34 g/dL Red Cell Distribution Width 12.7 % Platelet Count 244 x10^3/uL Neutrophils (%) (Auto) 57 % Lymphocytes (%) (Auto) 26 % Monocytes (%) (Auto) 12 % Eosinophils (%) (Auto) 3 % Basophils (%) (Auto) 3 % Neutrophils # (Auto) 2.9 x10^3uL Lymphocytes # (Auto) 1.4 x10^3/uL Monocytes # (Auto) 0.6 x10^3/uL Eosinophils # (Auto) 0.2 x10^3/uL Basophils # (Auto) 0.1 x10^3/uL Sodium Level 142 mmol/L Potassium Level 4.0 mmol/L Chloride Level 106 mmol/L Carbon Dioxide Level 29 mmol/L Anion Gap 7 Blood Urea Nitrogen 13 mg/dL Creatinine 0.9 mg/dL Estimated GFR (Cockcroft-Gault) 59.8 BUN/Creatinine Ratio 14 Glucose Level 98 mg/dL Calcium Level 9.4 mg/dL Total Bilirubin 0.4 mg/dL Aspartate Amino Transf (AST/SGOT) 23 U/L Alanine Aminotransferase (ALT/SGPT) 37 U/L Alkaline Phosphatase 68 U/L Total Protein 6.9 g/dL Albumin 4.0 g/dL Albumin/Globulin Ratio 1.4 Valproic Acid (Depakene) Level 39 mcg/mL Valproic Acid Last Dose Date Unknown Valproic Acid Last Dose Time Unknown Current Medications Medications (Trade) Dose Ordered Sig/Brianne Route PRN Reason Start Time Stop Time Status Last Admin Dose Admin Lorazepam (Ativan) 1 mg STK-MED ONCE .ROUTE 12/02/20 14:25 12/02/20 14:25 DC Lorazepam (Ativan) 1 mg 1X ONCE PO 12/02/20 14:30 12/02/20 14:36 DC 12/02/20 14:31 Potassium/ Phosphorus/Sodium (Phos-Nak) 1 pkt 1X ONCE PO 12/02/20 15:00 12/02/20 15:01 Cancel Potassium Bicarbonate (Potassium Effervescent Tablet) 20 meq STK-MED ONCE .ROUTE 12/02/20 14:56 12/02/20 14:57 DC Potassium Bicarbonate (Potassium Effervescent Tablet) 20 meq 1X ONCE PO 12/02/20 15:00 12/02/20 15:01 DC 12/02/20 15:00 Acetaminophen (Tylenol) 650 mg PRN Q6HRS PRN PO MILD PAIN / TEMP > 100.3'F 12/02/20 15:45 12/15/20 09:00 Multi-Ingredient Ointment (Analgesic [place]) 1 itz PRN QID PRN TP MUSCLE PAIN 12/02/20 15:45 Al Hydroxide/Mg Hydroxide (Mylanta Plus Xs) 15 ml PRN AFTMEALHC PRN PO DYSPEPSIA 12/02/20 15:45 Magnesium Hydroxide (Milk Of Magnesia) 2,400 mg PRN QHS PRN PO CONSTIPATION 12/02/20 15:45 12/03/20 16:29 Lisinopril (Prinivil) 10 mg DAILY PO 12/03/20 09:00 12/20/20 08:26 Multivitamins/ Calcium (Thera-M Plus) 1 tab DAILY PO 12/03/20 09:00 12/20/20 08:27 Olanzapine (ZyPREXA ZYDIS) 2.5 mg PRN Q2HRS PRN PO PSYCHOSIS 12/02/20 17:00 12/19/20 17:30 Potassium Chloride (Klor-Con) 20 meq DAILYWBKFT PO 12/04/20 08:00 12/20/20 08:00 Sertraline HCl (Zoloft) 25 mg DAILY PO 12/04/20 09:00 12/06/20 21:00 DC 12/06/20 08:17 Sertraline HCl (Zoloft) 50 mg DAILY PO 12/07/20 09:00 12/20/20 08:27 Quetiapine Fumarate (SEROquel) 12.5 mg 0900 PO 12/09/20 09:00 12/10/20 16:51 DC 12/10/20 09:00 Quetiapine Fumarate (SEROquel) 12.5 mg ONCE ONCE PO 12/08/20 17:15 12/08/20 17:16 DC 12/08/20 17:15 Quetiapine Fumarate (SEROquel) 12.5 mg 1700 PO 12/09/20 18:00 12/20/20 16:20 Quetiapine Fumarate (SEROquel) 25 mg 0900 PO 12/11/20 09:00 12/20/20 08:27 Divalproex Sodium (Depakote Sprinkles) 125 mg BID PO 12/12/20 21:00 12/13/20 10:16 DC 12/13/20 08:35 Trazodone HCl (Desyrel) 50 mg PRN QHS PRN PO INSOMNIA 12/13/20 00:30 12/16/20 19:32 Divalproex Sodium (Depakote Sprinkles) 125 mg 0900,1700 PO 12/13/20 17:00 12/13/20 17:49 DC 12/13/20 16:35 Valproic Acid (Depakene) 125 mg 0900,1700 PO 12/14/20 09:00 12/17/20 15:35 DC 12/17/20 08:39 Valproic Acid (Depakene) 125 mg [id number] PO 12/17/20 21:00 12/20/20 20:13 I have reviewed the current psychotropics carefully including drug interactions. Risk benefit ratio favors no change other than as noted in my dictated progress note. Diagnosis: Problems: (1) Major neurocognitive disorder (2) Impulse control disorder, unspecified (3) Anxiety disorder, unspecified (4) Dementia, vascular, with depression (5) Dementia, vascular, with delusions (6) Dementia in Alzheimer's disease with depression (7) Dementia in Alzheimer's disease with delusions (8) Dementia of the Alzheimer's type with early onset with behavioral disturbance EMILY CHARLES MD Dec 20, 2020 22:15
--- NOTE | 2020-12-20 22:38 | PDOC ---
Exam Note: Earle Note: This note is a late entry for 12/19/2020 covers elements not covered in my initial note. Subjective: The patient was reviewed on telehealth rounds in the morning of 12/19/2020 as an option during the COVID-19 pandemic period for a treatment team meeting with Maryana Rice, Cathy Hargrove (social insurance administrator), Elizabeth, activity therapy and Tiffany RN, discussed and reviewed the chart. Her Antonio attended the meeting. He is wanting her home due to insurance issues and social service staff are giving him options to assist with this. We discussed the patients diagnoses, progress, current psychotropics, reviewed drug interactions, risk-benefit ratio of current psychotropics. The patient slept 6- 1/4 hours previous night. She is confused, but less yelling and agitated, less racing up and down the hallway. She does door check at times. Speech is word salad. Attended 6 groups last week. Review of Systems: Ambulation impaired. No CV, , pulmonary, eye system symptoms on review. Mental Status Exam: The patient is oriented to herself. Insight and judgment, recent and remote memory, attention and concentration is poor consistent with her diagnoses. Laboratory Data: Reviewed. Impression: Major neurocognitive disorder Alzheimer vascular with delusion, depression, and behavioral disturbance. Anxiety disorder unspecified. Impulse control disorder unspecified. Plan: Continue current psychotropics. Assessment: Vital Signs/I&O: Vital Signs Date Time Temp Pulse Resp B/P (MAP) Pulse Ox O2 Delivery O2 Flow Rate FiO2 12/20/20 16:13 97.2 84 18 103/58 (73) 97 12/20/20 05:54 Room Air I & O 12/19/20 12/19/20 12/20/20 15:00 23:00 07:00 Intake Total 480 ml 240 ml 120 ml Balance 480 ml 240 ml 120 ml Labs: Laboratory Tests Test 12/20/20 05:55 White Blood Count 5.2 x10^3/uL (4.0-11.0) Red Blood Count 4.05 x10^6/uL (3.50-5.40) Hemoglobin 12.8 g/dL (12.0-15.5) Hematocrit 37.8 % (36.0-47.0) Mean Corpuscular Volume 94 fL (79-100) Mean Corpuscular Hemoglobin 32 pg (25-35) Mean Corpuscular Hemoglobin Concent 34 g/dL (31-37) Red Cell Distribution Width 12.7 % (11.5-14.5) Platelet Count 244 x10^3/uL (140-400) Neutrophils (%) (Auto) 57 % (31-73) Lymphocytes (%) (Auto) 26 % (24-48) Monocytes (%) (Auto) 12 % (0-9) H Eosinophils (%) (Auto) 3 % (0-3) Basophils (%) (Auto) 3 % (0-3) Neutrophils # (Auto) 2.9 x10^3uL (1.8-7.7) Lymphocytes # (Auto) 1.4 x10^3/uL (1.0-4.8) Monocytes # (Auto) 0.6 x10^3/uL (0.0-1.1) Eosinophils # (Auto) 0.2 x10^3/uL (0.0-0.7) Basophils # (Auto) 0.1 x10^3/uL (0.0-0.2) Sodium Level 142 mmol/L (136-145) Potassium Level 4.0 mmol/L (3.5-5.1) Chloride Level 106 mmol/L (98-107) Carbon Dioxide Level 29 mmol/L (21-32) Anion Gap 7 (6-14) Blood Urea Nitrogen 13 mg/dL (7-20) Creatinine 0.9 mg/dL (0.6-1.0) Estimated GFR (Cockcroft-Gault) 59.8 BUN/Creatinine Ratio 14 (6-20) Glucose Level 98 mg/dL (70-99) Calcium Level 9.4 mg/dL (8.5-10.1) Total Bilirubin 0.4 mg/dL (0.2-1.0) Aspartate Amino Transferase (AST) 23 U/L (15-37) Alanine Aminotransferase (ALT) 37 U/L (14-59) Alkaline Phosphatase 68 U/L (46-116) Total Protein 6.9 g/dL (6.4-8.2) Albumin 4.0 g/dL (3.4-5.0) Albumin/Globulin Ratio 1.4 (1.0-1.7) Valproic Acid Level 39 mcg/mL (50-100) L Valproic Acid Last Dose Date Unknown Valproic Acid Last Dose Time Unknown Current Medications: Meds: Laboratory Tests Test 12/20/20 05:55 White Blood Count 5.2 x10^3/uL Red Blood Count 4.05 x10^6/uL Hemoglobin 12.8 g/dL Hematocrit 37.8 % Mean Corpuscular Volume 94 fL Mean Corpuscular Hemoglobin 32 pg Mean Corpuscular Hemoglobin Concent 34 g/dL Red Cell Distribution Width 12.7 % Platelet Count 244 x10^3/uL Neutrophils (%) (Auto) 57 % Lymphocytes (%) (Auto) 26 % Monocytes (%) (Auto) 12 % Eosinophils (%) (Auto) 3 % Basophils (%) (Auto) 3 % Neutrophils # (Auto) 2.9 x10^3uL Lymphocytes # (Auto) 1.4 x10^3/uL Monocytes # (Auto) 0.6 x10^3/uL Eosinophils # (Auto) 0.2 x10^3/uL Basophils # (Auto) 0.1 x10^3/uL Sodium Level 142 mmol/L Potassium Level 4.0 mmol/L Chloride Level 106 mmol/L Carbon Dioxide Level 29 mmol/L Anion Gap 7 Blood Urea Nitrogen 13 mg/dL Creatinine 0.9 mg/dL Estimated GFR (Cockcroft-Gault) 59.8 BUN/Creatinine Ratio 14 Glucose Level 98 mg/dL Calcium Level 9.4 mg/dL Total Bilirubin 0.4 mg/dL Aspartate Amino Transf (AST/SGOT) 23 U/L Alanine Aminotransferase (ALT/SGPT) 37 U/L Alkaline Phosphatase 68 U/L Total Protein 6.9 g/dL Albumin 4.0 g/dL Albumin/Globulin Ratio 1.4 Valproic Acid (Depakene) Level 39 mcg/mL Valproic Acid Last Dose Date Unknown Valproic Acid Last Dose Time Unknown Current Medications Medications (Trade) Dose Ordered Sig/Brianne Route PRN Reason Start Time Stop Time Status Last Admin Dose Admin Lorazepam (Ativan) 1 mg STK-MED ONCE .ROUTE 12/02/20 14:25 12/02/20 14:25 DC Lorazepam (Ativan) 1 mg 1X ONCE PO 12/02/20 14:30 12/02/20 14:36 DC 12/02/20 14:31 Potassium/ Phosphorus/Sodium (Phos-Nak) 1 pkt 1X ONCE PO 12/02/20 15:00 12/02/20 15:01 Cancel Potassium Bicarbonate (Potassium Effervescent Tablet) 20 meq STK-MED ONCE .ROUTE 12/02/20 14:56 12/02/20 14:57 DC Potassium Bicarbonate (Potassium Effervescent Tablet) 20 meq 1X ONCE PO 12/02/20 15:00 12/02/20 15:01 DC 12/02/20 15:00 Acetaminophen (Tylenol) 650 mg PRN Q6HRS PRN PO MILD PAIN / TEMP > 100.3'F 12/02/20 15:45 12/15/20 09:00 Multi-Ingredient Ointment (Analgesic [place]) 1 itz PRN QID PRN TP MUSCLE PAIN 12/02/20 15:45 Al Hydroxide/Mg Hydroxide (Mylanta Plus Xs) 15 ml PRN AFTMEALHC PRN PO DYSPEPSIA 12/02/20 15:45 Magnesium Hydroxide (Milk Of Magnesia) 2,400 mg PRN QHS PRN PO CONSTIPATION 12/02/20 15:45 12/03/20 16:29 Lisinopril (Prinivil) 10 mg DAILY PO 12/03/20 09:00 12/20/20 08:26 Multivitamins/ Calcium (Thera-M Plus) 1 tab DAILY PO 12/03/20 09:00 12/20/20 08:27 Olanzapine (ZyPREXA ZYDIS) 2.5 mg PRN Q2HRS PRN PO PSYCHOSIS 12/02/20 17:00 12/19/20 17:30 Potassium Chloride (Klor-Con) 20 meq DAILYWBKFT PO 12/04/20 08:00 12/20/20 08:00 Sertraline HCl (Zoloft) 25 mg DAILY PO 12/04/20 09:00 12/06/20 21:00 DC 12/06/20 08:17 Sertraline HCl (Zoloft) 50 mg DAILY PO 12/07/20 09:00 12/20/20 08:27 Quetiapine Fumarate (SEROquel) 12.5 mg 0900 PO 12/09/20 09:00 12/10/20 16:51 DC 12/10/20 09:00 Quetiapine Fumarate (SEROquel) 12.5 mg ONCE ONCE PO 12/08/20 17:15 12/08/20 17:16 DC 12/08/20 17:15 Quetiapine Fumarate (SEROquel) 12.5 mg 1700 PO 12/09/20 18:00 12/20/20 16:20 Quetiapine Fumarate (SEROquel) 25 mg 0900 PO 12/11/20 09:00 12/20/20 08:27 Divalproex Sodium (Depakote Sprinkles) 125 mg BID PO 12/12/20 21:00 12/13/20 10:16 DC 12/13/20 08:35 Trazodone HCl (Desyrel) 50 mg PRN QHS PRN PO INSOMNIA 12/13/20 00:30 12/16/20 19:32 Divalproex Sodium (Depakote Sprinkles) 125 mg 0900,1700 PO 12/13/20 17:00 12/13/20 17:49 DC 12/13/20 16:35 Valproic Acid (Depakene) 125 mg 0900,1700 PO 12/14/20 09:00 12/17/20 15:35 DC 12/17/20 08:39 Valproic Acid (Depakene) 125 mg [id number] PO 12/17/20 21:00 12/20/20 20:13 I have reviewed the current psychotropics carefully including drug interactions. Risk benefit ratio favors no change other than as noted in my dictated progress note. Diagnosis: Problems: (1) Major neurocognitive disorder (2) Impulse control disorder, unspecified (3) Anxiety disorder, unspecified (4) Dementia, vascular, with depression (5) Dementia, vascular, with delusions (6) Dementia in Alzheimer's disease with depression (7) Dementia in Alzheimer's disease with delusions (8) Dementia of the Alzheimer's type with early onset with behavioral disturbance EMILY CHARLES MD Dec 20, 2020 22:38
--- NOTE | 2020-12-20 22:55 | PDOC ---
Exam Note: Earle Note: Please also refer to the separate dictated note~for this date of service dictated separately.~Patient seen individually. Discussed the patient with Nursing staff reviewed the chart.~Reviewed interim history and current functioning. Reviewed vital signs,~Labs/ Radiology~and current medications noted below. Continue current treatment with the changes noted in the dictated addendum note Assessment: Vital Signs/I&O: Vital Signs Date Time Temp Pulse Resp B/P (MAP) Pulse Ox O2 Delivery O2 Flow Rate FiO2 12/20/20 16:13 97.2 84 18 103/58 (73) 97 12/20/20 05:54 Room Air I & O 12/19/20 12/19/20 12/20/20 15:00 23:00 07:00 Intake Total 480 ml 240 ml 120 ml Balance 480 ml 240 ml 120 ml Labs: Laboratory Tests Test 12/20/20 05:55 White Blood Count 5.2 x10^3/uL (4.0-11.0) Red Blood Count 4.05 x10^6/uL (3.50-5.40) Hemoglobin 12.8 g/dL (12.0-15.5) Hematocrit 37.8 % (36.0-47.0) Mean Corpuscular Volume 94 fL (79-100) Mean Corpuscular Hemoglobin 32 pg (25-35) Mean Corpuscular Hemoglobin Concent 34 g/dL (31-37) Red Cell Distribution Width 12.7 % (11.5-14.5) Platelet Count 244 x10^3/uL (140-400) Neutrophils (%) (Auto) 57 % (31-73) Lymphocytes (%) (Auto) 26 % (24-48) Monocytes (%) (Auto) 12 % (0-9) H Eosinophils (%) (Auto) 3 % (0-3) Basophils (%) (Auto) 3 % (0-3) Neutrophils # (Auto) 2.9 x10^3uL (1.8-7.7) Lymphocytes # (Auto) 1.4 x10^3/uL (1.0-4.8) Monocytes # (Auto) 0.6 x10^3/uL (0.0-1.1) Eosinophils # (Auto) 0.2 x10^3/uL (0.0-0.7) Basophils # (Auto) 0.1 x10^3/uL (0.0-0.2) Sodium Level 142 mmol/L (136-145) Potassium Level 4.0 mmol/L (3.5-5.1) Chloride Level 106 mmol/L (98-107) Carbon Dioxide Level 29 mmol/L (21-32) Anion Gap 7 (6-14) Blood Urea Nitrogen 13 mg/dL (7-20) Creatinine 0.9 mg/dL (0.6-1.0) Estimated GFR (Cockcroft-Gault) 59.8 BUN/Creatinine Ratio 14 (6-20) Glucose Level 98 mg/dL (70-99) Calcium Level 9.4 mg/dL (8.5-10.1) Total Bilirubin 0.4 mg/dL (0.2-1.0) Aspartate Amino Transferase (AST) 23 U/L (15-37) Alanine Aminotransferase (ALT) 37 U/L (14-59) Alkaline Phosphatase 68 U/L (46-116) Total Protein 6.9 g/dL (6.4-8.2) Albumin 4.0 g/dL (3.4-5.0) Albumin/Globulin Ratio 1.4 (1.0-1.7) Valproic Acid Level 39 mcg/mL (50-100) L Valproic Acid Last Dose Date Unknown Valproic Acid Last Dose Time Unknown Current Medications: I have reviewed the current psychotropics carefully including drug interactions. Risk benefit ratio favors no change other than as noted in my dictated progress note. Diagnosis: Problems: (1) Major neurocognitive disorder (2) Impulse control disorder, unspecified (3) Anxiety disorder, unspecified (4) Dementia, vascular, with depression (5) Dementia, vascular, with delusions (6) Dementia in Alzheimer's disease with depression (7) Dementia in Alzheimer's disease with delusions (8) Dementia of the Alzheimer's type with early onset with behavioral distu rbEMILY Quinones MD Dec 20, 2020 22:55
[2020-12-21 06:16] VITALS: BP 123/64
[2020-12-21] MEDS: POTASSIUM CHLORIDE 20 MEQ TABLET.ER. PO SCH (08:00)
[2020-12-21] MEDS: QUEtiapine 25 MG TABLET. PO SCH ×2 (09:00→17:00)
[2020-12-21] MEDS: MULTIVITAMIN with MINERAL TABLET. PO SCH (09:00)
[2020-12-21] MEDS: VALPROATE ACID 250 MG/5 ML ORAL SOLUTION PO SCH ×3 (09:00→20:16)
[2020-12-21] MEDS: LISINOPRIL 10 MG TABLET PO SCH (09:00)
[2020-12-21] MEDS: SERTRALINE 50 MG TABLET. PO SCH (09:00)
[2020-12-21 15:47] VITALS: BP 117/76
--- NOTE | 2020-12-21 22:33 | PDOC ---
Exam Note: Earle Note: Please also refer to the separate dictated note~for this date of service dictated separately.~Patient seen individually. Discussed the patient with Nursing staff reviewed the chart.~Reviewed interim history and current functioning. Reviewed vital signs,~Labs/ Radiology~and current medications noted below. Continue current treatment with the changes noted in the dictated addendum note Assessment: Vital Signs/I&O: Vital Signs Date Time Temp Pulse Resp B/P (MAP) Pulse Ox O2 Delivery O2 Flow Rate FiO2 12/21/20 15:47 97.9 79 18 117/76 (90) 96 12/21/20 06:16 Room Air I & O 12/20/20 12/20/20 12/21/20 15:00 23:00 07:00 Intake Total 600 ml 360 ml Balance 600 ml 360 ml Current Medications: I have reviewed the current psychotropics carefully including drug interactions. Risk benefit ratio favors no change other than as noted in my dictated progress note. Diagnosis: Problems: (1) Major neurocognitive disorder (2) Impulse control disorder, unspecified (3) Anxiety disorder, unspecified (4) Dementia, vascular, with depression (5) Dementia, vascular, with delusions (6) Dementia in Alzheimer's disease with depression (7) Dementia in Alzheimer's disease with delusions (8) Dementia of the Alzheimer's type with early onset with behavioral disturbance EMILY CHARLES MD Dec 21, 2020 22:33
[2020-12-22 05:50] VITALS: BP 120/75
[2020-12-22] MEDS: MULTIVITAMIN with MINERAL TABLET. PO SCH (08:23)
[2020-12-22] MEDS: QUEtiapine 25 MG TABLET. PO SCH ×2 (08:23→17:00)
[2020-12-22] MEDS: SERTRALINE 50 MG TABLET. PO SCH (08:23)
[2020-12-22] MEDS: POTASSIUM CHLORIDE 20 MEQ TABLET.ER. PO SCH (08:24)
[2020-12-22] MEDS: LISINOPRIL 10 MG TABLET PO SCH (08:25)
[2020-12-22] MEDS: VALPROATE ACID 250 MG/5 ML ORAL SOLUTION PO SCH ×3 (08:26→20:07)
--- NOTE | 2020-12-22 09:32 | PDOC ---
Exam Note: Earle Note: This note is a late entry for 12/20/2020 covers elements not covered in my initial note. Subjective: The patient was seen on telehealth rounds in the afternoon of 12/20/2020 as an option during the COVID-19 pandemic period with Tiffany APPIAH, discussed and reviewed the chart. The patient slept 5-1/2 hours previous night. She is somewhat withdrawn, takes meds in orange juice, wandering, checking the doors, yanking on the door per nursing report. Review of Systems: Ambulation impaired. No CV, , pulmonary, eye system symptoms on review. Mental Status Exam: The patient is oriented to herself. Insight and judgment, recent and remote memory, attention and concentration is poor consistent with her diagnoses. Laboratory Data: Reviewed. Impression: Major neurocognitive disorder Alzheimer vascular with delusion, depression, and behavioral disturbance. Anxiety disorder unspecified. Impulse control disorder unspecified. Plan: Continue current psychotropics. Assessment: Vital Signs/I&O: Vital Signs Date Time Temp Pulse Resp B/P (MAP) Pulse Ox O2 Delivery O2 Flow Rate FiO2 12/22/20 08:25 73 120/75 12/22/20 05:50 98.2 16 99 12/21/20 06:16 Room Air I & O 12/21/20 12/21/20 12/22/20 15:00 23:00 07:00 Intake Total 600 ml 480 ml Balance 600 ml 480 ml Current Medications: Meds: Current Medications Medications (Trade) Dose Ordered Sig/Brianne Route PRN Reason Start Time Stop Time Status Last Admin Dose Admin Lorazepam (Ativan) 1 mg STK-MED ONCE .ROUTE 12/02/20 14:25 12/02/20 14:25 DC Lorazepam (Ativan) 1 mg 1X ONCE PO 12/02/20 14:30 12/02/20 14:36 DC 12/02/20 14:31 Potassium/ Phosphorus/Sodium (Phos-Nak) 1 pkt 1X ONCE PO 12/02/20 15:00 12/02/20 15:01 Cancel Potassium Bicarbonate (Potassium Effervescent Tablet) 20 meq STK-MED ONCE .ROUTE 12/02/20 14:56 12/02/20 14:57 DC Potassium Bicarbonate (Potassium Effervescent Tablet) 20 meq 1X ONCE PO 12/02/20 15:00 12/02/20 15:01 DC 12/02/20 15:00 Acetaminophen (Tylenol) 650 mg PRN Q6HRS PRN PO MILD PAIN / TEMP > 100.3'F 12/02/20 15:45 12/15/20 09:00 Multi-Ingredient Ointment (Analgesic [place]) 1 itz PRN QID PRN TP MUSCLE PAIN 12/02/20 15:45 Al Hydroxide/Mg Hydroxide (Mylanta Plus Xs) 15 ml PRN AFTMEALHC PRN PO DYSPEPSIA 12/02/20 15:45 Magnesium Hydroxide (Milk Of Magnesia) 2,400 mg PRN QHS PRN PO CONSTIPATION 12/02/20 15:45 12/03/20 16:29 Lisinopril (Prinivil) 10 mg DAILY PO 12/03/20 09:00 12/22/20 08:25 Multivitamins/ Calcium (Thera-M Plus) 1 tab DAILY PO 12/03/20 09:00 12/22/20 08:23 Olanzapine (ZyPREXA ZYDIS) 2.5 mg PRN Q2HRS PRN PO PSYCHOSIS 12/02/20 17:00 12/21/20 20:16 Potassium Chloride (Klor-Con) 20 meq DAILYWBKFT PO 12/04/20 08:00 12/22/20 08:24 Sertraline HCl (Zoloft) 25 mg DAILY PO 12/04/20 09:00 12/06/20 21:00 DC 12/06/20 08:17 Sertraline HCl (Zoloft) 50 mg DAILY PO 12/07/20 09:00 12/22/20 08:23 Quetiapine Fumarate (SEROquel) 12.5 mg 0900 PO 12/09/20 09:00 12/10/20 16:51 DC 12/10/20 09:00 Quetiapine Fumarate (SEROquel) 12.5 mg ONCE ONCE PO 12/08/20 17:15 12/08/20 17:16 DC 12/08/20 17:15 Quetiapine Fumarate (SEROquel) 12.5 mg 1700 PO 12/09/20 18:00 12/21/20 17:00 Quetiapine Fumarate (SEROquel) 25 mg 0900 PO 12/11/20 09:00 12/22/20 08:23 Divalproex Sodium (Depakote Sprinkles) 125 mg BID PO 12/12/20 21:00 12/13/20 10:16 DC 12/13/20 08:35 Trazodone HCl (Desyrel) 50 mg PRN QHS PRN PO INSOMNIA 12/13/20 00:30 12/16/20 19:32 Divalproex Sodium (Depakote Sprinkles) 125 mg 0900,1700 PO 12/13/20 17:00 12/13/20 17:49 DC 12/13/20 16:35 Valproic Acid (Depakene) 125 mg 0900,1700 PO 12/14/20 09:00 12/17/20 15:35 DC 12/17/20 08:39 Valproic Acid (Depakene) 125 mg [id number] PO 12/17/20 21:00 12/22/20 08:26 I have reviewed the current psychotropics carefully including drug interactions. Risk benefit ratio favors no change other than as noted in my dictated progress note. Diagnosis: Problems: (1) Major neurocognitive disorder (2) Impulse control disorder, unspecified (3) Anxiety disorder, unspecified (4) Dementia, vascular, with depression (5) Dementia, vascular, with delusions (6) Dementia in Alzheimer's disease with depression (7) Dementia in Alzheimer's disease with delusions (8) Dementia of the Alzheimer's type with early onset with behavioral disturbance EMILY CHARLES MD Dec 22, 2020 09:32
--- NOTE | 2020-12-22 09:59 | PDOC ---
Exam Note: Earle Note: This note is a late entry for 12/21/2020 covers elements not covered in my initial note. Subjective: The patient was seen on telehealth rounds in the afternoon of 12/21/2020 as an option during the COVID-19 pandemic period with Drea APPIAH, discussed and reviewed the chart. The patient slept 7 hours previous night. Her Depakote Sprinkle had to be syringed. She is less up and down the hallway, more redirectable but unable to stand long enough to interact with me on telehealth rounds. Review of Systems: Ambulation impaired. No CV, , pulmonary, eye system sy mptoms on review. Mental Status Exam: The patient is oriented to herself. Insight and judgment, recent and remote memory, attention and concentration is poor consistent with her diagnoses. Laboratory Data: Reviewed. Impression: Major neurocognitive disorder Alzheimer vascular with delusion, depression, and behavioral disturbance. Anxiety disorder unspecified. Impulse control disorder unspecified. Plan: Continue current psychotropics. Assessment: Vital Signs/I&O: Vital Signs Date Time Temp Pulse Resp B/P (MAP) Pulse Ox O2 Delivery O2 Flow Rate FiO2 12/22/20 08:25 73 120/75 12/22/20 05:50 98.2 16 99 12/21/20 06:16 Room Air I & O 12/21/20 12/21/20 12/22/20 15:00 23:00 07:00 Intake Total 600 ml 480 ml Balance 600 ml 480 ml Current Medications: Meds: Current Medications Medications (Trade) Dose Ordered Sig/Brianne Route PRN Reason Start Time Stop Time Status Last Admin Dose Admin Lorazepam (Ativan) 1 mg STK-MED ONCE .ROUTE 12/02/20 14:25 12/02/20 14:25 DC Lorazepam (Ativan) 1 mg 1X ONCE PO 12/02/20 14:30 12/02/20 14:36 DC 12/02/20 14:31 Potassium/ Phosphorus/Sodium (Phos-Nak) 1 pkt 1X ONCE PO 12/02/20 15:00 12/02/20 15:01 Cancel Potassium Bicarbonate (Potassium Effervescent Tablet) 20 meq STK-MED ONCE .ROUTE 12/02/20 14:56 12/02/20 14:57 DC Potassium Bicarbonate (Potassium Effervescent Tablet) 20 meq 1X ONCE PO 12/02/20 15:00 12/02/20 15:01 DC 12/02/20 15:00 Acetaminophen (Tylenol) 650 mg PRN Q6HRS PRN PO MILD PAIN / TEMP > 100.3'F 12/02/20 15:45 12/15/20 09:00 Multi-Ingredient Ointment (Analgesic [place]) 1 itz PRN QID PRN TP MUSCLE PAIN 12/02/20 15:45 Al Hydroxide/Mg Hydroxide (Mylanta Plus Xs) 15 ml PRN AFTMEALHC PRN PO DYSPEPSIA 12/02/20 15:45 Magnesium Hydroxide (Milk Of Magnesia) 2,400 mg PRN QHS PRN PO CONSTIPATION 12/02/20 15:45 12/03/20 16:29 Lisinopril (Prinivil) 10 mg DAILY PO 12/03/20 09:00 12/22/20 08:25 Multivitamins/ Calcium (Thera-M Plus) 1 tab DAILY PO 12/03/20 09:00 12/22/20 08:23 Olanzapine (ZyPREXA ZYDIS) 2.5 mg PRN Q2HRS PRN PO PSYCHOSIS 12/02/20 17:00 12/21/20 20:16 Potassium Chloride (Klor-Con) 20 meq DAILYWBKFT PO 12/04/20 08:00 12/22/20 08:24 Sertraline HCl (Zoloft) 25 mg DAILY PO 12/04/20 09:00 12/06/20 21:00 DC 12/06/20 08:17 Sertraline HCl (Zoloft) 50 mg DAILY PO 12/07/20 09:00 12/22/20 08:23 Quetiapine Fumarate (SEROquel) 12.5 mg 0900 PO 12/09/20 09:00 12/10/20 16:51 DC 12/10/20 09:00 Quetiapine Fumarate (SEROquel) 12.5 mg ONCE ONCE PO 12/08/20 17:15 12/08/20 17:16 DC 12/08/20 17:15 Quetiapine Fumarate (SEROquel) 12.5 mg 1700 PO 12/09/20 18:00 12/21/20 17:00 Quetiapine Fumarate (SEROquel) 25 mg 0900 PO 12/11/20 09:00 7/4/21 08:23 Divalproex Sodium (Depakote Sprinkles) 125 mg BID PO 12/12/20 21:00 12/13/20 10:16 DC 12/13/20 08:35 Trazodone HCl (Desyrel) 50 mg PRN QHS PRN PO INSOMNIA 12/13/20 00:30 12/16/20 19:32 Divalproex Sodium (Depakote Sprinkles) 125 mg 0900,1700 PO 12/13/20 17:00 12/13/20 17:49 DC 12/13/20 16:35 Valproic Acid (Depakene) 125 mg 0900,1700 PO 12/14/20 09:00 12/17/20 15:35 DC 12/17/20 08:39 Valproic Acid (Depakene) 125 mg [id number] PO 12/17/20 21:00 12/22/20 08:26 I have reviewed the current psychotropics carefully including drug interactions. Risk benefit ratio favors no change other than as noted in my dictated progress note. Diagnosis: Problems: (1) Major neurocognitive disorder (2) Impulse control disorder, unspecified (3) Anxiety disorder, unspecified (4) Dementia, vascular, with depression (5) Dementia, vascular, with delusions (6) Dementia in Alzheimer's disease with depression (7) Dementia in Alzheimer's disease with delusions (8) Dementia of the Alzheimer's type with early onset with behavioral disturbance EMILY CHARLES MD Dec 22, 2020 09:59
[2020-12-22 16:38] VITALS: BP 104/67
--- NOTE | 2020-12-22 22:01 | PDOC ---
Exam Note: Earle Note: Please also refer to the separate dictated note~for this date of service dictated separately.~Patient seen individually. Discussed the patient with Nursing staff reviewed the chart.~Reviewed interim history and current functioning. Reviewed vital signs,~Labs/ Radiology~and current medications noted below. Continue current treatment with the changes noted in the dictated addendum note Assessment: Vital Signs/I&O: Vital Signs Date Time Temp Pulse Resp B/P (MAP) Pulse Ox O2 Delivery O2 Flow Rate FiO2 12/22/20 16:38 98.2 95 20 104/67 (79) 92 12/21/20 06:16 Room Air I & O 12/21/20 12/21/20 12/22/20 15:00 23:00 07:00 Intake Total 600 ml 480 ml Balance 600 ml 480 ml Current Medications: Meds: Current Medications Medications (Trade) Dose Ordered Sig/Brianne Route PRN Reason Start Time Stop Time Status Last Admin Dose Admin Lorazepam (Ativan) 1 mg STK-MED ONCE .ROUTE 12/02/20 14:25 12/02/20 14:25 DC Lorazepam (Ativan) 1 mg 1X ONCE PO 12/02/20 14:30 12/02/20 14:36 DC 12/02/20 14:31 Potassium/ Phosphorus/Sodium (Phos-Nak) 1 pkt 1X ONCE PO 12/02/20 15:00 12/02/20 15:01 Cancel Potassium Bicarbonate (Potassium Effervescent Tablet) 20 meq STK-MED ONCE .ROUTE 12/02/20 14:56 12/02/20 14:57 DC Potassium Bicarbonate (Potassium Effervescent Tablet) 20 meq 1X ONCE PO 12/02/20 15:00 12/02/20 15:01 DC 12/02/20 15:00 Acetaminophen (Tylenol) 650 mg PRN Q6HRS PRN PO MILD PAIN / TEMP > 100.3'F 12/02/20 15:45 12/15/20 09:00 Multi-Ingredient Ointment (Analgesic [place]) 1 itz PRN QID PRN TP MUSCLE PAIN 12/02/20 15:45 Al Hydroxide/Mg Hydroxide (Mylanta Plus Xs) 15 ml PRN AFTMEALHC PRN PO DYSPEPSIA 12/02/20 15:45 Magnesium Hydroxide (Milk Of Magnesia) 2,400 mg PRN QHS PRN PO CONSTIPATION 12/02/20 15:45 12/03/20 16:29 Lisinopril (Prinivil) 10 mg DAILY PO 12/03/20 09:00 12/22/20 08:25 Multivitamins/ Calcium (Thera-M Plus) 1 tab DAILY PO 12/03/20 09:00 12/22/20 08:23 Olanzapine (ZyPREXA ZYDIS) 2.5 mg PRN Q2HRS PRN PO PSYCHOSIS 12/02/20 17:00 12/22/20 20:07 Potassium Chloride (Klor-Con) 20 meq DAILYWBKFT PO 12/04/20 08:00 12/22/20 08:24 Sertraline HCl (Zoloft) 25 mg DAILY PO 12/04/20 09:00 12/06/20 21:00 DC 12/06/20 08:17 Sertraline HCl (Zoloft) 50 mg DAILY PO 12/07/20 09:00 12/22/20 08:23 Quetiapine Fumarate (SEROquel) 12.5 mg 0900 PO 12/09/20 09:00 12/10/20 16:51 DC 12/10/20 09:00 Quetiapine Fumarate (SEROquel) 12.5 mg ONCE ONCE PO 12/08/20 17:15 12/08/20 17:16 DC 12/08/20 17:15 Quetiapine Fumarate (SEROquel) 12.5 mg 1700 PO 12/09/20 18:00 12/22/20 17:00 Quetiapine Fumarate (SEROquel) 25 mg 0900 PO 12/11/20 09:00 12/22/20 08:23 Divalproex Sodium (Depakote Sprinkles) 125 mg BID PO 12/12/20 21:00 12/13/20 10:16 DC 12/13/20 08:35 Trazodone HCl (Desyrel) 50 mg PRN QHS PRN PO INSOMNIA 12/13/20 00:30 12/16/20 19:32 Divalproex Sodium (Depakote Sprinkles) 125 mg 0900,1700 PO 12/13/20 17:00 12/13/20 17:49 DC 12/13/20 16:35 Valproic Acid (Depakene) 125 mg 0900,1700 PO 12/14/20 09:00 12/17/20 15:35 DC 12/17/20 08:39 Valproic Acid (Depakene) 125 mg [id number] PO 12/17/20 21:00 12/22/20 20:07 I have reviewed the current psychotropics carefully including drug interactions. Risk benefit ratio favors no change other than as noted in my dictated progress note. 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
[2020-12-23 05:30] VITALS: BP 125/70
[2020-12-23] MEDS: VALPROATE ACID 250 MG/5 ML ORAL SOLUTION PO SCH ×4 (08:42→20:38)
[2020-12-23] MEDS: QUEtiapine 25 MG TABLET. PO SCH ×2 (08:42→17:34)
[2020-12-23] MEDS: SERTRALINE 50 MG TABLET. PO SCH (08:42)
[2020-12-23] MEDS: MULTIVITAMIN with MINERAL TABLET. PO SCH (08:43)
[2020-12-23] MEDS: POTASSIUM CHLORIDE 20 MEQ TABLET.ER. PO SCH (08:43)
[2020-12-23] MEDS: LISINOPRIL 10 MG TABLET PO SCH (08:43)
--- NOTE | 2020-12-23 08:59 | PDOC ---
Exam Note: Earle Note: This note is a late entry for 12/22/2020 covers elements not covered in my initial note. Subjective: The patient was seen individually in the evening of 12/22/2020 with Riac APPIAH, discussed and reviewed the chart. The patient slept 6-1/2 hours previous night. She has been restless, constantly up and down the hallway, confused. Received Zyprexa at 1 p.m. She takes liquid Depakene in juice. She threw it on the floor. We will check UA. Meds had to be syringed, pacing, restless. Review of Systems: Ambulation impaired. No CV, , pulmonary, eye system symp toms on review. Mental Status Exam: The patient is oriented to herself. Insight and judgment, recent and remote memory, attention and concentration is poor consistent with her diagnoses. Laboratory Data: Reviewed. Impression: Major neurocognitive disorder Alzheimer vascular with delusion, depression, and behavioral disturbance. Anxiety disorder unspecified. Impulse control disorder unspecified. Plan: Continue current psychotropics. We will check UA to make sure UTI is not worsening her agitation. Continue to persevere with administering her meds. Adjust further as clinically indicated. Assessment: Vital Signs/I&O: Vital Signs Date Time Temp Pulse Resp B/P (MAP) Pulse Ox O2 Delivery O2 Flow Rate FiO2 12/23/20 08:43 67 125/70 12/23/20 05:30 96.8 18 98 12/21/20 06:16 Room Air I & O 12/22/20 12/22/20 12/23/20 15:00 23:00 07:00 Intake Total 480 ml 720 ml Balance 480 ml 720 ml Current Medications: Meds: Current Medications Medications (Trade) Dose Ordered Sig/Brianne Route PRN Reason Start Time Stop Time Status Last Admin Dose Admin Lorazepam (Ativan) 1 mg STK-MED ONCE .ROUTE 12/02/20 14:25 12/02/20 14:25 DC Lorazepam (Ativan) 1 mg 1X ONCE PO 12/02/20 14:30 12/02/20 14:36 DC 12/02/20 14:31 Potassium/ Phosphorus/Sodium (Phos-Nak) 1 pkt 1X ONCE PO 12/02/20 15:00 12/02/20 15:01 Cancel Potassium Bicarbonate (Potassium Effervescent Tablet) 20 meq STK-MED ONCE .ROUTE 12/02/20 14:56 12/02/20 14:57 DC Potassium Bicarbonate (Potassium Effervescent Tablet) 20 meq 1X ONCE PO 12/02/20 15:00 12/02/20 15:01 DC 12/02/20 15:00 Acetaminophen (Tylenol) 650 mg PRN Q6HRS PRN PO MILD PAIN / TEMP > 100.3'F 12/02/20 15:45 12/15/20 09:00 Multi-Ingredient Ointment (Analgesic [place]) 1 itz PRN QID PRN TP MUSCLE PAIN 12/02/20 15:45 Al Hydroxide/Mg Hydroxide (Mylanta Plus Xs) 15 ml PRN AFTMEALHC PRN PO DYSPEPSIA 12/02/20 15:45 Magnesium Hydroxide (Milk Of Magnesia) 2,400 mg PRN QHS PRN PO CONSTIPATION 12/02/20 15:45 12/03/20 16:29 Lisinopril (Prinivil) 10 mg DAILY PO 12/03/20 09:00 12/23/20 08:43 Multivitamins/ Calcium (Thera-M Plus) 1 tab DAILY PO 12/03/20 09:00 12/23/20 08:43 Olanzapine (ZyPREXA ZYDIS) 2.5 mg PRN Q2HRS PRN PO PSYCHOSIS 12/02/20 17:00 12/22/20 20:07 Potassium Chloride (Klor-Con) 20 meq DAILYWBKFT PO 12/04/20 08:00 12/23/20 08:43 Sertraline HCl (Zoloft) 25 mg DAILY PO 12/04/20 09:00 12/06/20 21:00 DC 12/06/20 08:17 Sertraline HCl (Zoloft) 50 mg DAILY PO 12/07/20 09:00 12/23/20 08:42 Quetiapine Fumarate (SEROquel) 12.5 mg 0900 PO 12/09/20 09:00 12/10/20 16:51 DC 12/10/20 09:00 Quetiapine Fumarate (SEROquel) 12.5 mg ONCE ONCE PO 12/08/20 17:15 12/08/20 17:16 DC 12/08/20 17:15 Quetiapine Fumarate (SEROquel) 12.5 mg 1700 PO 12/09/20 18:00 12/22/20 17:00 Quetiapine Fumarate (SEROquel) 25 mg 0900 PO 12/11/20 09:00 12/23/20 08:42 Divalproex Sodium (Depakote Sprinkles) 125 mg BID PO 12/12/20 21:00 12/13/20 10:16 DC 12/13/20 08:35 Trazodone HCl (Desyrel) 50 mg PRN QHS PRN PO INSOMNIA 12/13/20 00:30 12/16/20 19:32 Divalproex Sodium (Depakote Sprinkles) 125 mg 0900,1700 PO 12/13/20 17:00 12/13/20 17:49 DC 12/13/20 16:35 Valproic Acid (Depakene) 125 mg 0900,1700 PO 12/14/20 09:00 12/17/20 15:35 DC 12/17/20 08:39 Valproic Acid (Depakene) 125 mg [id number] PO 12/17/20 21:00 12/23/20 08:42 I have reviewed the current psychotropics carefully including drug interactions. Risk benefit ratio favors no change other than as noted in my dictated progress note. Diagnosis: Problems: (1) Major neurocognitive disorder (2) Impulse control disorder, unspecified (3) Anxiety disorder, unspecified (4) Dementia, vascular, with depression (5) Dementia, vascular, with delusions (6) Dementia in Alzheimer's disease with depression (7) Dementia in Alzheimer's disease with delusions (8) Dementia of the Alzheimer's type with early onset with behavioral disturbance EMILY CHARLES MD Dec 23, 2020 08:59
[2020-12-23 16:14] VITALS: BP 121/76
--- NOTE | 2020-12-23 22:01 | PDOC ---
Exam Note: Earle Note: Please also refer to the separate dictated note~for this date of service dictated separately.~Patient seen individually. Discussed the patient with Nursing staff reviewed the chart.~Reviewed interim history and current functioning. Reviewed vital signs,~Labs/ Radiology~and current medications noted below. Continue current treatment with the changes noted in the dictated addendum note Assessment: Vital Signs/I&O: Vital Signs Date Time Temp Pulse Resp B/P (MAP) Pulse Ox O2 Delivery O2 Flow Rate FiO2 12/23/20 16:14 98.5 74 20 121/76 (91) 98 12/21/20 06:16 Room Air I & O 12/22/20 12/22/20 12/23/20 15:00 23:00 07:00 Intake Total 480 ml 720 ml Balance 480 ml 720 ml Current Medications: Meds: Current Medications Medications (Trade) Dose Ordered Sig/Brianne Route PRN Reason Start Time Stop Time Status Last Admin Dose Admin Lorazepam (Ativan) 1 mg STK-MED ONCE .ROUTE 12/02/20 14:25 12/02/20 14:25 DC Lorazepam (Ativan) 1 mg 1X ONCE PO 12/02/20 14:30 12/02/20 14:36 DC 12/02/20 14:31 Potassium/ Phosphorus/Sodium (Phos-Nak) 1 pkt 1X ONCE PO 12/02/20 15:00 12/02/20 15:01 Cancel Potassium Bicarbonate (Potassium Effervescent Tablet) 20 meq STK-MED ONCE .ROUTE 12/02/20 14:56 12/02/20 14:57 DC Potassium Bicarbonate (Potassium Effervescent Tablet) 20 meq 1X ONCE PO 12/02/20 15:00 12/02/20 15:01 DC 12/02/20 15:00 Acetaminophen (Tylenol) 650 mg PRN Q6HRS PRN PO MILD PAIN / TEMP > 100.3'F 12/02/20 15:45 12/15/20 09:00 Multi-Ingredient Ointment (Analgesic [place]) 1 itz PRN QID PRN TP MUSCLE PAIN 12/02/20 15:45 Al Hydroxide/Mg Hydroxide (Mylanta Plus Xs) 15 ml PRN AFTMEALHC PRN PO DYSPEPSIA 12/02/20 15:45 Magnesium Hydroxide (Milk Of Magnesia) 2,400 mg PRN QHS PRN PO CONSTIPATION 12/02/20 15:45 12/03/20 16:29 Lisinopril (Prinivil) 10 mg DAILY PO 12/03/20 09:00 12/23/20 08:43 Multivitamins/ Calcium (Thera-M Plus) 1 tab DAILY PO 12/03/20 09:00 12/23/20 08:43 Olanzapine (ZyPREXA ZYDIS) 2.5 mg PRN Q2HRS PRN PO PSYCHOSIS 12/02/20 17:00 12/23/20 14:10 Potassium Chloride (Klor-Con) 20 meq DAILYWBKFT PO 12/04/20 08:00 12/23/20 08:43 Sertraline HCl (Zoloft) 25 mg DAILY PO 12/04/20 09:00 12/06/20 21:00 DC 12/06/20 08:17 Sertraline HCl (Zoloft) 50 mg DAILY PO 12/07/20 09:00 12/23/20 08:42 Quetiapine Fumarate (SEROquel) 12.5 mg 0900 PO 12/09/20 09:00 12/10/20 16:51 DC 12/10/20 09:00 Quetiapine Fumarate (SEROquel) 12.5 mg ONCE ONCE PO 12/08/20 17:15 12/08/20 17:16 DC 12/08/20 17:15 Quetiapine Fumarate (SEROquel) 12.5 mg 1700 PO 12/09/20 18:00 12/23/20 17:34 Quetiapine Fumarate (SEROquel) 25 mg 0900 PO 12/11/20 09:00 12/23/20 08:42 Divalproex Sodium (Depakote Sprinkles) 125 mg BID PO 12/12/20 21:00 12/13/20 10:16 DC 12/13/20 08:35 Trazodone HCl (Desyrel) 50 mg PRN QHS PRN PO INSOMNIA 12/13/20 00:30 12/16/20 19:32 Divalproex Sodium (Depakote Sprinkles) 125 mg 0900,1700 PO 12/13/20 17:00 12/13/20 17:49 DC 12/13/20 16:35 Valproic Acid (Depakene) 125 mg 0900,1700 PO 12/14/20 09:00 12/17/20 15:35 DC 12/17/20 08:39 Valproic Acid (Depakene) 125 mg [id number] PO 12/17/20 21:00 12/23/20 16:57 DC 12/23/20 14:05 Valproic Acid (Depakene) 125 mg QID PO 12/23/20 17:00 12/23/20 20:38 Current Medications Medications (Trade) Dose Ordered Sig/Brianne Route PRN Reason Start Time Stop Time Status Last Admin Dose Admin Valproic Acid (Depakene) 125 mg QID PO 12/23/20 17:00 12/23/20 20:38 I have reviewed the current psychotropics carefully including drug interactions. Risk benefit ratio favors no change other than as noted in my dictated progress note. Diagnosis: Problems: (1) Major neurocognitive disorder (2) Impulse control disorder, unspecified (3) Anxiety disorder, unspecified (4) Dementia, vascular, with depression (5) Dementia, vascular, with delusions (6) Dementia in Alzheimer's disease with depression (7) Dementia in Alzheimer's disease with delusions (8) Dementia of the Alzheimer's type with early onset with behavioral disturbance EMILY CHARLES MD Dec 23, 2020 22:01
[2020-12-24 06:24] VITALS: BP 102/62
--- NOTE | 2020-12-24 06:31 | PDOC ---
Exam Note: Earle Note: This note is a late entry for 12/23/2020 covers elements not covered in my initial note. Subjective: The patient was seen individually in the evening of 12/23/2020 with Yamilex APPIAH, discussed and reviewed the chart. The patient slept 6-3/4 hours previous night. Appetite is 50%. Patient has been pacing up and down the hallway. Valproic acid level is 39. Review of Systems: Ambulation impaired. No CV, , pulmonary, eye system symptoms on review. Mental Status Exam: The patient is oriented to herself. Insight and judgment, recent and remote memory, attention and concentration is poor consistent with her diagnoses. Laboratory Data: Reviewed. Impression: Major neurocognitive disorder Alzheimer vascular with delusion, depression, and behavioral disturbance. Anxiety disorder unspecified. Impulse control disorder unspecified. Plan: Continue current psychotropics. Increase Depakote Sprinkle from 125 mg t.i.d. to 125 mg 4 times a day. Check CBC, CMP, valproic acid level in 3 days. Adjust as clinically indicated. Assessment: Vital Signs/I&O: Vital Signs Date Time Temp Pulse Resp B/P (MAP) Pulse Ox O2 Delivery O2 Flow Rate FiO2 12/24/20 06:24 98.1 98 18 102/62 (75) 94 12/21/20 06:16 Room Air I & O 12/23/20 12/23/20 12/24/20 14:59 22:59 06:59 Intake Total 300 ml 180 ml Balance 300 ml 180 ml Current Medications: Meds: Current Medications Medications (Trade) Dose Ordered Sig/Brianne Route PRN Reason Start Time Stop Time Status Last Admin Dose Admin Lorazepam (Ativan) 1 mg STK-MED ONCE .ROUTE 12/02/20 14:25 12/02/20 14:25 DC Lorazepam (Ativan) 1 mg 1X ONCE PO 12/02/20 14:30 12/02/20 14:36 DC 12/02/20 14:31 Potassium/ Phosphorus/Sodium (Phos-Nak) 1 pkt 1X ONCE PO 12/02/20 15:00 12/02/20 15:01 Cancel Potassium Bicarbonate (Potassium Effervescent Tablet) 20 meq STK-MED ONCE .ROUTE 12/02/20 14:56 12/02/20 14:57 DC Potassium Bicarbonate (Potassium Effervescent Tablet) 20 meq 1X ONCE PO 12/02/20 15:00 12/02/20 15:01 DC 12/02/20 15:00 Acetaminophen (Tylenol) 650 mg PRN Q6HRS PRN PO MILD PAIN / TEMP > 100.3'F 12/02/20 15:45 12/15/20 09:00 Multi-Ingredient Ointment (Analgesic [place]) 1 itz PRN QID PRN TP MUSCLE PAIN 12/02/20 15:45 Al Hydroxide/Mg Hydroxide (Mylanta Plus Xs) 15 ml PRN AFTMEALHC PRN PO DYSPEPSIA 12/02/20 15:45 Magnesium Hydroxide (Milk Of Magnesia) 2,400 mg PRN QHS PRN PO CONSTIPATION 12/02/20 15:45 12/03/20 16:29 Lisinopril (Prinivil) 10 mg DAILY PO 12/03/20 09:00 12/23/20 08:43 Multivitamins/ Calcium (Thera-M Plus) 1 tab DAILY PO 12/03/20 09:00 12/23/20 08:43 Olanzapine (ZyPREXA ZYDIS) 2.5 mg PRN Q2HRS PRN PO PSYCHOSIS 12/02/20 17:00 12/23/20 14:10 Potassium Chloride (Klor-Con) 20 meq DAILYWBKFT PO 12/04/20 08:00 12/23/20 08:43 Sertraline HCl (Zoloft) 25 mg DAILY PO 12/04/20 09:00 12/06/20 21:00 DC 12/06/20 08:17 Sertraline HCl (Zoloft) 50 mg DAILY PO 12/07/20 09:00 12/23/20 08:42 Quetiapine Fumarate (SEROquel) 12.5 mg 0900 PO 12/09/20 09:00 12/10/20 16:51 DC 12/10/20 09:00 Quetiapine Fumarate (SEROquel) 12.5 mg ONCE ONCE PO 12/08/20 17:15 12/08/20 17:16 DC 12/08/20 17:15 Quetiapine Fumarate (SEROquel) 12.5 mg 1700 PO 12/09/20 18:00 12/23/20 17:34 Quetiapine Fumarate (SEROquel) 25 mg 0900 PO 12/11/20 09:00 12/23/20 08:42 Divalproex Sodium (Depakote Sprinkles) 125 mg BID PO 12/12/20 21:00 12/13/20 10:16 DC 12/13/20 08:35 Trazodone HCl (Desyrel) 50 mg PRN QHS PRN PO INSOMNIA 12/13/20 00:30 12/16/20 19:32 Divalproex Sodium (Depakote Sprinkles) 125 mg 0900,1700 PO 12/13/20 17:00 12/13/20 17:49 DC 12/13/20 16:35 Valproic Acid (Depakene) 125 mg 0900,1700 PO 12/14/20 09:00 12/17/20 15:35 DC 12/17/20 08:39 Valproic Acid (Depakene) 125 mg [id number] PO 12/17/20 21:00 12/23/20 16:57 DC 12/23/20 14:05 Valproic Acid (Depakene) 125 mg QID PO 12/23/20 17:00 12/23/20 20:38 Current Medications Medications (Trade) Dose Ordered Sig/Brianne Route PRN Reason Start Time Stop Time Status Last Admin Dose Admin Valproic Acid (Depakene) 125 mg QID PO 12/23/20 17:00 12/23/20 20:38 I have reviewed the current psychotropics carefully including drug interactions. Risk benefit ratio favors no change other than as noted in my dictated progress note. Diagnosis: Problems: (1) Major neurocognitive disorder (2) Impulse control disorder, unspecified (3) Anxiety disorder, unspecified (4) Dementia, vascular, with depression (5) Dementia, vascular, with delusions (6) Dementia in Alzheimer's disease with depression (7) Dementia in Alzheimer's disease with delusions (8) Dementia of the Alzheimer's type with early onset with behavioral disturbance EMILY CHARLES MD Dec 24, 2020 06:31
[2020-12-24] MEDS: POTASSIUM CHLORIDE 20 MEQ TABLET.ER. PO SCH (08:00)
[2020-12-24] MEDS: MULTIVITAMIN with MINERAL TABLET. PO SCH (09:00)
[2020-12-24] MEDS: SERTRALINE 50 MG TABLET. PO SCH (09:00)
[2020-12-24] MEDS: QUEtiapine 25 MG TABLET. PO SCH ×2 (09:00→09:17)
[2020-12-24] MEDS: LISINOPRIL 10 MG TABLET PO SCH (09:00)
[2020-12-24] MEDS: VALPROATE ACID 250 MG/5 ML ORAL SOLUTION PO SCH ×4 (09:00→20:30)
[2020-12-24 14:02] LABS: CLARITY,URINE HAZY; COLOR,URINE YELLOW
[2020-12-24 14:03] LABS: BILIRUBIN,URINE NEG (NEG); GLUCOSE,URINE NEG (NEG); NITRITE,URINE NEG (NEG); UROBILINOGEN,URINE 0.2 mg/dL (0.2 mg/dL)
[2020-12-24 14:05] LABS: RBC,URINE RARE /HPF (0-2)
[2020-12-24 14:06] LABS: BACTERIA,URINE MANY /HPF (0-FEW); SQUAMOUS EPITHELIAL CELL,UR MANY /LPF; WBC,URINE TNTC /HPF (0-4)
[2020-12-24 15:52] VITALS: BP 121/75
--- NOTE | 2020-12-24 22:05 | PDOC ---
Exam Note: Earle Note: Please also refer to the separate dictated note~for this date of service dictated separately.~Patient seen individually. Discussed the patient with Nursing staff reviewed the chart.~Reviewed interim history and current functioning. Reviewed vital signs,~Labs/ Radiology~and current medications noted below. Continue current treatment with the changes noted in the dictated addendum note Assessment: Vital Signs/I&O: Vital Signs Date Time Temp Pulse Resp B/P (MAP) Pulse Ox O2 Delivery O2 Flow Rate FiO2 12/24/20 15:52 97.3 80 19 121/75 (90) 98 Room Air I & O 12/23/20 12/23/20 12/24/20 15:00 23:00 07:00 Intake Total 300 ml 180 ml Balance 300 ml 180 ml Labs: Laboratory Tests Test 12/24/20 13:48 Urine Collection Type Unknown Urine Color Yellow Urine Clarity Hazy Urine pH 7.0 Urine Specific [place] 1.020 Urine Protein Trace (NEG-TRACE) Urine Glucose (UA) Neg mg/dL (NEG) Urine Ketones (Stick) Trace mg/dL (NEG) Urine Blood Small (NEG) Urine Nitrite Neg (NEG) Urine Bilirubin Neg (NEG) Urine Urobilinogen Dipstick 0.2 mg/dL (0.2 mg/dL) Urine Leukocyte Esterase Large (NEG) Urine RBC Rare /HPF (0-2) Urine WBC Tntc /HPF (0-4) Urine Squamous Epithelial Cells Many /LPF Urine Transitional Epithelial Cells Mod /LPF Urine Bacteria Many /HPF (0-FEW) Urine Mucus Slight /LPF Current Medications: Meds: Laboratory Tests Test 12/24/20 13:48 Urine Collection Type Unknown Urine Color Yellow Urine Clarity Hazy Urine pH 7.0 Urine Specific [place] 1.020 Urine Protein Trace Urine Glucose (UA) Neg mg/dL Urine Ketones (Stick) Trace mg/dL Urine Blood Small Urine Nitrite Neg Urine Bilirubin Neg Urine Urobilinogen Dipstick 0.2 mg/dL Urine Leukocyte Esterase Large Urine RBC Rare /HPF Urine WBC Tntc /HPF Urine Squamous Epithelial Cells Many /LPF Urine Transitional Epithelial Cells Mod /LPF Urine Bacteria Many /HPF Urine Mucus Slight /LPF Current Medications Medications (Trade) Dose Ordered Sig/Brianne Route PRN Reason Start Time Stop Time Status Last Admin Dose Admin Lorazepam (Ativan) 1 mg STK-MED ONCE .ROUTE 12/02/20 14:25 12/02/20 14:25 DC Lorazepam (Ativan) 1 mg 1X ONCE PO 12/02/20 14:30 12/02/20 14:36 DC 12/02/20 14:31 Potassium/ Phosphorus/Sodium (Phos-Nak) 1 pkt 1X ONCE PO 12/02/20 15:00 12/02/20 15:01 Cancel Potassium Bicarbonate (Potassium Effervescent Tablet) 20 meq STK-MED ONCE .ROUTE 12/02/20 14:56 12/02/20 14:57 DC Potassium Bicarbonate (Potassium Effervescent Tablet) 20 meq 1X ONCE PO 12/02/20 15:00 12/02/20 15:01 DC 12/02/20 15:00 Acetaminophen (Tylenol) 650 mg PRN Q6HRS PRN PO MILD PAIN / TEMP > 100.3'F 12/02/20 15:45 12/15/20 09:00 Multi-Ingredient Ointment (Analgesic [place]) 1 itz PRN QID PRN TP MUSCLE PAIN 12/02/20 15:45 Al Hydroxide/Mg Hydroxide (Mylanta Plus Xs) 15 ml PRN AFTMEALHC PRN PO DYSPEPSIA 12/02/20 15:45 Magnesium Hydroxide (Milk Of Magnesia) 2,400 mg PRN QHS PRN PO CONSTIPATION 12/02/20 15:45 12/03/20 16:29 Lisinopril (Prinivil) 10 mg DAILY PO 12/03/20 09:00 12/24/20 09:00 Multivitamins/ Calcium (Thera-M Plus) 1 tab DAILY PO 12/03/20 09:00 12/23/20 08:43 Olanzapine (ZyPREXA ZYDIS) 2.5 mg PRN Q2HRS PRN PO PSYCHOSIS 12/02/20 17:00 12/24/20 09:27 Potassium Chloride (Klor-Con) 20 meq DAILYWBKFT PO 12/04/20 08:00 12/23/20 08:43 Sertraline HCl (Zoloft) 25 mg DAILY PO 12/04/20 09:00 12/06/20 21:00 DC 12/06/20 08:17 Sertraline HCl (Zoloft) 50 mg DAILY PO 12/07/20 09:00 12/24/20 09:00 Quetiapine Fumarate (SEROquel) 12.5 mg 0900 PO 12/09/20 09:00 12/10/20 16:51 DC 12/10/20 09:00 Quetiapine Fumarate (SEROquel) 12.5 mg ONCE ONCE PO 12/08/20 17:15 12/08/20 17:16 DC 12/08/20 17:15 Quetiapine Fumarate (SEROquel) 12.5 mg 1700 PO 12/09/20 18:00 12/24/20 09:17 Quetiapine Fumarate (SEROquel) 25 mg 0900 PO 12/11/20 09:00 12/24/20 09:00 Divalproex Sodium (Depakote Sprinkles) 125 mg BID PO 12/12/20 21:00 12/13/20 10:16 DC 12/13/20 08:35 Trazodone HCl (Desyrel) 50 mg PRN QHS PRN PO INSOMNIA 12/13/20 00:30 12/16/20 19:32 Divalproex Sodium (Depakote Sprinkles) 125 mg 0900,1700 PO 12/13/20 17:00 12/13/20 17:49 DC 12/13/20 16:35 Valproic Acid (Depakene) 125 mg 0900,1700 PO 12/14/20 09:00 12/17/20 15:35 DC 12/17/20 08:39 Valproic Acid (Depakene) 125 mg [id number] PO 12/17/20 21:00 12/23/20 16:57 DC 12/23/20 14:05 Valproic Acid (Depakene) 125 mg QID PO 12/23/20 17:00 12/24/20 20:30 I have reviewed the current psychotropics carefully including drug interactions. Risk benefit ratio favors no change other than as noted in my dictated progress note. Diagnosis: Problems: (1) Major neurocognitive disorder (2) Impulse control disorder, unspecified (3) Anxiety disorder, unspecified (4) Dementia, vascular, with depression (5) Dementia, vascular, with delusions (6) Dementia in Alzheimer's disease with depression (7) Dementia in Alzheimer's disease with delusions (8) Dementia of the Alzheimer's type with early onset with behavioral disturbance EMILY CHARLES MD Dec 24, 2020 22:05
[2020-12-25 05:55] VITALS: BP 111/73
[2020-12-25] MEDS: POTASSIUM CHLORIDE 20 MEQ TABLET.ER. PO SCH (08:00)
[2020-12-25] MEDS: VALPROATE ACID 250 MG/5 ML ORAL SOLUTION PO SCH ×4 (08:06→20:35)
[2020-12-25] MEDS: QUEtiapine 25 MG TABLET. PO SCH ×2 (08:06→17:00)
[2020-12-25] MEDS: LISINOPRIL 10 MG TABLET PO SCH (08:06)
[2020-12-25] MEDS: MULTIVITAMIN with MINERAL TABLET. PO SCH ×2 (08:07→08:24)
[2020-12-25] MEDS: SERTRALINE 50 MG TABLET. PO SCH (08:07)
--- NOTE | 2020-12-25 08:54 | PDOC ---
Exam Note: Earle Note: This note is a late entry for 12/24/2020 covers elements not covered in my initial note. Subjective: The patient was seen individually in the evening of 12/24/2020 with Tiffany APPIAH, discussed and reviewed the chart. The patient slept 7 hours previous night. The patient continues to be confused, walks up and down the hallway, checks the doors, at times resistive to medications, they had to be syringed. Review of Systems: Ambulation impaired. No CV, , pulmonary, eye system symptoms on review. Reliability poor. Mental Status Exam: The patient is oriented to herself. Insight and judgment, recent and remote memory, attention and concentration is poor consistent with her diagnoses. Laboratory Data: Reviewed. Repeat UA is awaited. Impression: Major neurocognitive disorder Alzheimer vascular with delusion, depression, and behavioral disturbance. Anxiety disorder unspecified. Impulse control disorder unspecified. Plan: Continue current psychotropics. Assessment: Vital Signs/I&O: Vital Signs Date Time Temp Pulse Resp B/P (MAP) Pulse Ox O2 Delivery O2 Flow Rate FiO2 12/25/20 08:06 73 111/73 12/25/20 05:55 96.9 18 100 Room Air I & O 12/24/20 12/24/20 12/25/20 15:00 23:00 07:00 Intake Total 600 ml 240 ml 120 ml Balance 600 ml 240 ml 120 ml Labs: Laboratory Tests Test 12/24/20 13:48 Urine Collection Type Unknown Urine Color Yellow Urine Clarity Hazy Urine pH 7.0 Urine Specific [place] 1.020 Urine Protein Trace (NEG-TRACE) Urine Glucose (UA) Neg mg/dL (NEG) Urine Ketones (Stick) Trace mg/dL (NEG) Urine Blood Small (NEG) Urine Nitrite Neg (NEG) Urine Bilirubin Neg (NEG) Urine Urobilinogen Dipstick 0.2 mg/dL (0.2 mg/dL) Urine Leukocyte Esterase Large (NEG) Urine RBC Rare /HPF (0-2) Urine WBC Tntc /HPF (0-4) Urine Squamous Epithelial Cells Many /LPF Urine Transitional Epithelial Cells Mod /LPF Urine Bacteria Many /HPF (0-FEW) Urine Mucus Slight /LPF Current Medications: Meds: Laboratory Tests Test 12/24/20 13:48 Urine Collection Type Unknown Urine Color Yellow Urine Clarity Hazy Urine pH 7.0 Urine Specific [place] 1.020 Urine Protein Trace Urine Glucose (UA) Neg mg/dL Urine Ketones (Stick) Trace mg/dL Urine Blood Small Urine Nitrite Neg Urine Bilirubin Neg Urine Urobilinogen Dipstick 0.2 mg/dL Urine Leukocyte Esterase Large Urine RBC Rare /HPF Urine WBC Tntc /HPF Urine Squamous Epithelial Cells Many /LPF Urine Transitional Epithelial Cells Mod /LPF Urine Bacteria Many /HPF Urine Mucus Slight /LPF Current Medications Medications (Trade) Dose Ordered Sig/Brianne Route PRN Reason Start Time Stop Time Status Last Admin Dose Admin Lorazepam (Ativan) 1 mg STK-MED ONCE .ROUTE 12/02/20 14:25 12/02/20 14:25 DC Lorazepam (Ativan) 1 mg 1X ONCE PO 12/02/20 14:30 12/02/20 14:36 DC 12/02/20 14:31 Potassium/ Phosphorus/Sodium (Phos-Nak) 1 pkt 1X ONCE PO 12/02/20 15:00 12/02/20 15:01 Cancel Potassium Bicarbonate (Potassium Effervescent Tablet) 20 meq STK-MED ONCE .ROUTE 12/02/20 14:56 12/02/20 14:57 DC Potassium Bicarbonate (Potassium Effervescent Tablet) 20 meq 1X ONCE PO 12/02/20 15:00 12/02/20 15:01 DC 12/02/20 15:00 Acetaminophen (Tylenol) 650 mg PRN Q6HRS PRN PO MILD PAIN / TEMP > 100.3'F 12/02/20 15:45 12/15/20 09:00 Multi-Ingredient Ointment (Analgesic [place]) 1 itz PRN QID PRN TP MUSCLE PAIN 12/02/20 15:45 Al Hydroxide/Mg Hydroxide (Mylanta Plus Xs) 15 ml PRN AFTMEALHC PRN PO DYSPEPSIA 12/02/20 15:45 Magnesium Hydroxide (Milk Of Magnesia) 2,400 mg PRN QHS PRN PO CONSTIPATION 12/02/20 15:45 12/03/20 16:29 Lisinopril (Prinivil) 10 mg DAILY PO 12/03/20 09:00 12/25/20 08:06 Multivitamins/ Calcium (Thera-M Plus) 1 tab DAILY PO 12/03/20 09:00 12/23/20 08:43 Olanzapine (ZyPREXA ZYDIS) 2.5 mg PRN Q2HRS PRN PO PSYCHOSIS 12/02/20 17:00 12/24/20 09:27 Potassium Chloride (Klor-Con) 20 meq DAILYWBKFT PO 12/04/20 08:00 12/23/20 08:43 Sertraline HCl (Zoloft) 25 mg DAILY PO 12/04/20 09:00 12/06/20 21:00 DC 12/06/20 08:17 Sertraline HCl (Zoloft) 50 mg DAILY PO 12/07/20 09:00 12/25/20 08:07 Quetiapine Fumarate (SEROquel) 12.5 mg 0900 PO 12/09/20 09:00 12/10/20 16:51 DC 12/10/20 09:00 Quetiapine Fumarate (SEROquel) 12.5 mg ONCE ONCE PO 12/08/20 17:15 12/08/20 17:16 DC 12/08/20 17:15 Quetiapine Fumarate (SEROquel) 12.5 mg 1700 PO 12/09/20 18:00 12/24/20 09:17 Quetiapine Fumarate (SEROquel) 25 mg 0900 PO 12/11/20 09:00 12/25/20 08:06 Divalproex Sodium (Depakote Sprinkles) 125 mg BID PO 12/12/20 21:00 12/13/20 10:16 DC 12/13/20 08:35 Trazodone HCl (Desyrel) 50 mg PRN QHS PRN PO INSOMNIA 12/13/20 00:30 12/16/20 19:32 Divalproex Sodium (Depakote Sprinkles) 125 mg 0900,1700 PO 12/13/20 17:00 12/13/20 17:49 DC 12/13/20 16:35 Valproic Acid (Depakene) 125 mg 0900,1700 PO 12/14/20 09:00 12/17/20 15:35 DC 12/17/20 08:39 Valproic Acid (Depakene) 125 mg [id number] PO 12/17/20 21:00 12/23/20 16:57 DC 12/23/20 14:05 Valproic Acid (Depakene) 125 mg QID PO 12/23/20 17:00 12/25/20 08:06 I have reviewed the current psychotropics carefully including drug interactions. Risk benefit ratio favors no change other than as noted in my dictated progress note. Diagnosis: Problems: (1) Major neurocognitive disorder (2) Impulse control disorder, unspecified (3) Anxiety disorder, unspecified (4) Dementia, vascular, with depression (5) Dementia, vascular, with delusions (6) Dementia in Alzheimer's disease with depression (7) Dementia in Alzheimer's disease with delusions (8) Dementia of the Alzheimer's type with early onset with behavioral disturbance EMILY CHARLES MD Dec 25, 2020 08:54
[2020-12-25 16:22] VITALS: BP 107/63
--- NOTE | 2020-12-25 21:45 | PDOC ---
Exam Note: Earle Note: Please also refer to the separate dictated note~for this date of service dictated separately.~Patient seen individually. Discussed the patient with Nursing staff reviewed the chart.~Reviewed interim history and current functioning. Reviewed vital signs,~Labs/ Radiology~and current medications noted below. Continue current treatment with the changes noted in the dictated addendum note Assessment: Vital Signs/I&O: Vital Signs Date Time Temp Pulse Resp B/P (MAP) Pulse Ox O2 Delivery O2 Flow Rate FiO2 12/25/20 16:22 97.8 71 18 107/63 (78) 98 12/25/20 05:55 Room Air I & O 12/24/20 12/24/20 12/25/20 15:00 23:00 07:00 Intake Total 600 ml 240 ml 120 ml Balance 600 ml 240 ml 120 ml Current Medications: Meds: Current Medications Medications (Trade) Dose Ordered Sig/Brianne Route PRN Reason Start Time Stop Time Status Last Admin Dose Admin Lorazepam (Ativan) 1 mg STK-MED ONCE .ROUTE 12/02/20 14:25 12/02/20 14:25 DC Lorazepam (Ativan) 1 mg 1X ONCE PO 12/02/20 14:30 12/02/20 14:36 DC 12/02/20 14:31 Potassium/ Phosphorus/Sodium (Phos-Nak) 1 pkt 1X ONCE PO 12/02/20 15:00 12/02/20 15:01 Cancel Potassium Bicarbonate (Potassium Effervescent Tablet) 20 meq STK-MED ONCE .ROUTE 12/02/20 14:56 12/02/20 14:57 DC Potassium Bicarbonate (Potassium Effervescent Tablet) 20 meq 1X ONCE PO 12/02/20 15:00 12/02/20 15:01 DC 12/02/20 15:00 Acetaminophen (Tylenol) 650 mg PRN Q6HRS PRN PO MILD PAIN / TEMP > 100.3'F 12/02/20 15:45 12/15/20 09:00 Multi-Ingredient Ointment (Analgesic [place]) 1 itz PRN QID PRN TP MUSCLE PAIN 12/02/20 15:45 Al Hydroxide/Mg Hydroxide (Mylanta Plus Xs) 15 ml PRN AFTMEALHC PRN PO DYSPEPSIA 12/02/20 15:45 Magnesium Hydroxide (Milk Of Magnesia) 2,400 mg PRN QHS PRN PO CONSTIPATION 12/02/20 15:45 12/03/20 16:29 Lisinopril (Prinivil) 10 mg DAILY PO 12/03/20 09:00 12/25/20 08:06 Multivitamins/ Calcium (Thera-M Plus) 1 tab DAILY PO 12/03/20 09:00 12/23/20 08:43 Olanzapine (ZyPREXA ZYDIS) 2.5 mg PRN Q2HRS PRN PO PSYCHOSIS 12/02/20 17:00 12/24/20 09:27 Potassium Chloride (Klor-Con) 20 meq DAILYWBKFT PO 12/04/20 08:00 12/23/20 08:43 Sertraline HCl (Zoloft) 25 mg DAILY PO 12/04/20 09:00 12/06/20 21:00 DC 12/06/20 08:17 Sertraline HCl (Zoloft) 50 mg DAILY PO 12/07/20 09:00 12/25/20 08:07 Quetiapine Fumarate (SEROquel) 12.5 mg 0900 PO 12/09/20 09:00 12/10/20 16:51 DC 12/10/20 09:00 Quetiapine Fumarate (SEROquel) 12.5 mg ONCE ONCE PO 12/08/20 17:15 12/08/20 17:16 DC 12/08/20 17:15 Quetiapine Fumarate (SEROquel) 12.5 mg 1700 PO 12/09/20 18:00 12/25/20 17:00 Quetiapine Fumarate (SEROquel) 25 mg 0900 PO 12/11/20 09:00 12/25/20 08:06 Divalproex Sodium (Depakote Sprinkles) 125 mg BID PO 12/12/20 21:00 12/13/20 10:16 DC 12/13/20 08:35 Trazodone HCl (Desyrel) 50 mg PRN QHS PRN PO INSOMNIA 12/13/20 00:30 12/16/20 19:32 Divalproex Sodium (Depakote Sprinkles) 125 mg 0900,1700 PO 12/13/20 17:00 12/13/20 17:49 DC 12/13/20 16:35 Valproic Acid (Depakene) 125 mg 0900,1700 PO 12/14/20 09:00 12/17/20 15:35 DC 12/17/20 08:39 Valproic Acid (Depakene) 125 mg [id number] PO 12/17/20 21:00 12/23/20 16:57 DC 12/23/20 14:05 Valproic Acid (Depakene) 125 mg QID PO 12/23/20 17:00 12/25/20 20:35 I have reviewed the current psychotropics carefully including drug interactions. Risk benefit ratio favors no change other than as noted in my dictated progress note. Diagnosis: Problems: (1) Major neurocognitive disorder (2) Impulse control disorder, unspecified (3) Anxiety disorder, unspecified (4) Dementia, vascular, with depression (5) Dementia, vascular, with delusions (6) Dementia in Alzheimer's disease with depression (7) Dementia in Alzheimer's disease with delusions (8) Dementia of the Alzheimer's type with early onset with behavioral disturbance EMILY CHARLES MD Dec 25, 2020 21:45
[2020-12-26 05:59] VITALS: BP 130/85
--- NOTE | 2020-12-26 06:40 | PDOC ---
Exam Note: Earle Note: This note is a late entry for 12/25/2020 covers elements not covered in my initial note. Subjective: The patient was seen individually in the evening of 12/25/2020 with Tiffany APPIAH, discussed and reviewed the chart. The patient slept 6-3/4 hours previous night. The patient has been disorganized, restless, difficult to redirect, refusing meds at times, have to be given in orange juice including Depakene at lunch time. She is resistive to medications previous evening. Labs on the valproic acid level is due on 12/27/20. Review of Systems: Ambulation impaired. No CV, , pulmonary, eye system symptoms on review. Reliability poor. Mental Status Exam: The patient is oriented to herself. She seemed a little more sedated today on 12/25 and we will monitor this. Insight and judgment, recent and remote memory, attention and concentration is poor consistent with her diagnoses. Laboratory Data: Reviewed. Impression: Major neurocognitive disorder Alzheimer vascular with delusion, depression, and behavioral disturbance. Anxiety disorder unspecified. Impulse control disorder unspecified. Plan: Continue current psychotropics. Assessment: Vital Signs/I&O: Vital Signs Date Time Temp Pulse Resp B/P (MAP) Pulse Ox O2 Delivery O2 Flow Rate FiO2 12/26/20 05:59 96.8 88 18 130/85 (100) 98 Room Air I & O 12/25/20 12/25/20 12/26/20 15:00 23:00 07:00 Intake Total 600 ml 480 ml Balance 600 ml 480 ml Current Medications: Meds: Current Medications Medications (Trade) Dose Ordered Sig/Brianne Route PRN Reason Start Time Stop Time Status Last Admin Dose Admin Lorazepam (Ativan) 1 mg STK-MED ONCE .ROUTE 12/02/20 14:25 12/02/20 14:25 DC Lorazepam (Ativan) 1 mg 1X ONCE PO 12/02/20 14:30 12/02/20 14:36 DC 12/02/20 14:31 Potassium/ Phosphorus/Sodium (Phos-Nak) 1 pkt 1X ONCE PO 12/02/20 15:00 12/02/20 15:01 Cancel Potassium Bicarbonate (Potassium Effervescent Tablet) 20 meq STK-MED ONCE .ROUTE 12/02/20 14:56 12/02/20 14:57 DC Potassium Bicarbonate (Potassium Effervescent Tablet) 20 meq 1X ONCE PO 12/02/20 15:00 12/02/20 15:01 DC 12/02/20 15:00 Acetaminophen (Tylenol) 650 mg PRN Q6HRS PRN PO MILD PAIN / TEMP > 100.3'F 12/02/20 15:45 12/15/20 09:00 Multi-Ingredient Ointment (Analgesic [place]) 1 itz PRN QID PRN TP MUSCLE PAIN 12/02/20 15:45 Al Hydroxide/Mg Hydroxide (Mylanta Plus Xs) 15 ml PRN AFTMEALHC PRN PO DYSPEPSIA 12/02/20 15:45 Magnesium Hydroxide (Milk Of Magnesia) 2,400 mg PRN QHS PRN PO CONSTIPATION 12/02/20 15:45 12/03/20 16:29 Lisinopril (Prinivil) 10 mg DAILY PO 12/03/20 09:00 12/25/20 08:06 Multivitamins/ Calcium (Thera-M Plus) 1 tab DAILY PO 12/03/20 09:00 12/23/20 08:43 Olanzapine (ZyPREXA ZYDIS) 2.5 mg PRN Q2HRS PRN PO PSYCHOSIS 12/02/20 17:00 12/24/20 09:27 Potassium Chloride (Klor-Con) 20 meq DAILYWBKFT PO 12/04/20 08:00 12/23/20 08:43 Sertraline HCl (Zoloft) 25 mg DAILY PO 12/04/20 09:00 12/06/20 21:00 DC 12/06/20 08:17 Sertraline HCl (Zoloft) 50 mg DAILY PO 12/07/20 09:00 12/25/20 08:07 Quetiapine Fumarate (SEROquel) 12.5 mg 0900 PO 12/09/20 09:00 12/10/20 16:51 DC 12/10/20 09:00 Quetiapine Fumarate (SEROquel) 12.5 mg ONCE ONCE PO 12/08/20 17:15 12/08/20 17:16 DC 12/08/20 17:15 Quetiapine Fumarate (SEROquel) 12.5 mg 1700 PO 12/09/20 18:00 12/25/20 17:00 Quetiapine Fumarate (SEROquel) 25 mg 0900 PO 12/11/20 09:00 12/25/20 08:06 Divalproex Sodium (Depakote Sprinkles) 125 mg BID PO 12/12/20 21:00 12/13/20 10:16 DC 12/13/20 08:35 Trazodone HCl (Desyrel) 50 mg PRN QHS PRN PO INSOMNIA 12/13/20 00:30 12/16/20 19:32 Divalproex Sodium (Depakote Sprinkles) 125 mg 0900,1700 PO 12/13/20 17:00 12/13/20 17:49 DC 12/13/20 16:35 Valproic Acid (Depakene) 125 mg 0900,1700 PO 12/14/20 09:00 12/17/20 15:35 DC 12/17/20 08:39 Valproic Acid (Depakene) 125 mg [id number] PO 12/17/20 21:00 12/23/20 16:57 DC 12/23/20 14:05 Valproic Acid (Depakene) 125 mg QID PO 12/23/20 17:00 12/25/20 20:35 I have reviewed the current psychotropics carefully including drug interactions. Risk benefit ratio favors no change other than as noted in my dictated progress note. Diagnosis: Problems: (1) Major neurocognitive disorder (2) Impulse control disorder, unspecified (3) Anxiety disorder, unspecified (4) Dementia, vascular, with depression (5) Dementia, vascular, with delusions (6) Dementia in Alzheimer's disease with depression (7) Dementia in Alzheimer's disease with delusions (8) Dementia of the Alzheimer's type with early onset with behavioral disturbance EMILY CHARLES MD Dec 26, 2020 06:40
[2020-12-26] MEDS: LISINOPRIL 10 MG TABLET PO SCH (08:57)
[2020-12-26] MEDS: QUEtiapine 25 MG TABLET. PO SCH ×4 (08:57→18:04)
[2020-12-26] MEDS: MULTIVITAMIN with MINERAL TABLET. PO SCH (08:57)
[2020-12-26] MEDS: VALPROATE ACID 250 MG/5 ML ORAL SOLUTION PO SCH ×6 (08:58→19:39)
[2020-12-26] MEDS: SERTRALINE 50 MG TABLET. PO SCH (08:58)
[2020-12-26] MEDS: POTASSIUM CHLORIDE 20 MEQ TABLET.ER. PO SCH (08:58)
--- NOTE | 2020-12-26 13:49 | TX PLAN ---
Interdisciplinary Tx Plan Admission Information Dec 02, 2020 at 15:25 Legal Status (on Admission): Voluntary DPOA/Guardian Name: Aron Razo Contact Other Contact Name: [facility] Other Contact Verified Code Status: DNR Allergies: Coded Allergies: No Known Drug Allergies (Unverified , 12/02/20) Diagnoses Primary Diagnosis: Major Neurocognitive D/O, Vascular Alzheimers with delusions and depression Reasons for Admission: Aggressive, Sig. Change Sleep, Combative, Confusion/Disoriented, Poor impulse control, Other Problem in Patient's Words: She has declined pretty quickly in the last 3 months. Additional Admission Comments: According to the intake, pt was biting, hitting staff at LT, throwing things, agitated, restless, wandering, attempts to elope, poor sleep, poor intake, throwing cups of water on LTC staff, attempted to elope out of the back door of [facility] ED during medical clearance. Problems Active Problems: restless wandering increased confusion Inactive Problems: medication compliance Pt Strengths/Limitations Ability for [place]: Poor Cognitive Functioning/Ability: Poor Communication Skills/Ability: Poor Financial Resources: Good Insight/Judgement: Poor Intellectual Ability: Poor Physical Health: Fair Social Skills: Fair Stability in Family: Good Stability in School/Work: Poor Verbal Skills: Poor Discharge Criteria Discharge Criteria: No need for close observ., Adequate arrangements @DC, Improved behavior, Improved mood/thought Preliminary Discharge Plan Preliminary DC Plan: Current Living Arrange. Initial D/C Plan Unknown at this time Identified Discharge Needs: Pt may bring pt home; unknown at this time. Currently Utilized Resources Currently Utilized Resources/P: Primary Care Physician Identified Problems/Hx/Goals Objectives/Short-Term Goals Short Term Goals: Dec. Aggression, Dec. Outbursts, Medication Stabilization, Monitor Med Effects, Promote Coping Skill Short Term Goals in Patient's: N/A Interventions/Frequency Staff Interventions/Frequency&: Psychiatrist to assess pt at least 3x per week for medication management. Social Wok to assess pt at least 2x per week to identify barriers to care and discharge planning. Nursing to assess medication effects, behavior modification and complete 15 minute checks. 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 Education: Pt did graduate high school (12th grade); attended [employer] in [place] with her B.A. in [place] degree. Community Follow-up Primary Care Physician Mental Health Services Treatment Plan Explained Patient/Post Anesthesia Care Unit Nurse had this treatment plan explained to him/her as indicated by the signature below and has been given the opportunity to ask questions and make suggestions: Date: Patient/Post Anesthesia Care Unit Nurse Signature: Status Update Update Pt , Aron, participated in treatment team via phone. Pt is eating roughly 50% of meals and sleeping on average 6.75 hours a night. Pt is doing okay with redirection but continues to be more restless and somewhat agitated. A UA was completed and it appears that pt UA went to culture, results are pending. Pt has attended six groups this week with minimal participation and was found a few days ago consoling another pt who was tearful. Pt has agreed to look at Medicaid pending as he realizes that he is not able to physically care for pt at home. SW went out those referrals and are waiting to hear back pending acceptance or denial. SW will continue to work with family on final discharge plans. HEDY BARRON Dec 26, 2020 13:48
[2020-12-26 16:10] VITALS: BP 120/62
--- NOTE | 2020-12-26 22:17 | PDOC ---
Exam Note: Earle Note: Please also refer to the separate dictated note~for this date of service dictated separately.~Patient seen individually. Discussed the patient with Nursing staff reviewed the chart.~Reviewed interim history and current functioning. Reviewed vital signs,~Labs/ Radiology~and current medications noted below. Continue current treatment with the changes noted in the dictated addendum note Assessment: Vital Signs/I&O: Vital Signs Date Time Temp Pulse Resp B/P (MAP) Pulse Ox O2 Delivery O2 Flow Rate FiO2 12/26/20 16:10 97.5 91 17 120/62 (81) 96 12/26/20 05:59 Room Air I & O 12/25/20 12/25/20 12/26/20 15:00 23:00 07:00 Intake Total 600 ml 480 ml Balance 600 ml 480 ml Current Medications: Meds: Current Medications Medications (Trade) Dose Ordered Sig/Brianne Route PRN Reason Start Time Stop Time Status Last Admin Dose Admin Lorazepam (Ativan) 1 mg STK-MED ONCE .ROUTE 12/02/20 14:25 12/02/20 14:25 DC Lorazepam (Ativan) 1 mg 1X ONCE PO 12/02/20 14:30 12/02/20 14:36 DC 12/02/20 14:31 Potassium/ Phosphorus/Sodium (Phos-Nak) 1 pkt 1X ONCE PO 12/02/20 15:00 12/02/20 15:01 Cancel Potassium Bicarbonate (Potassium Effervescent Tablet) 20 meq STK-MED ONCE .ROUTE 12/02/20 14:56 12/02/20 14:57 DC Potassium Bicarbonate (Potassium Effervescent Tablet) 20 meq 1X ONCE PO 12/02/20 15:00 12/02/20 15:01 DC 12/02/20 15:00 Acetaminophen (Tylenol) 650 mg PRN Q6HRS PRN PO MILD PAIN / TEMP > 100.3'F 12/02/20 15:45 12/15/20 09:00 Multi-Ingredient Ointment (Analgesic [place]) 1 itz PRN QID PRN TP MUSCLE PAIN 12/02/20 15:45 Al Hydroxide/Mg Hydroxide (Mylanta Plus Xs) 15 ml PRN AFTMEALHC PRN PO DYSPEPSIA 12/02/20 15:45 Magnesium Hydroxide (Milk Of Magnesia) 2,400 mg PRN QHS PRN PO CONSTIPATION 12/02/20 15:45 12/03/20 16:29 Lisinopril (Prinivil) 10 mg DAILY PO 12/03/20 09:00 12/26/20 08:57 Multivitamins/ Calcium (Thera-M Plus) 1 tab DAILY PO 12/03/20 09:00 12/26/20 08:57 Olanzapine (ZyPREXA ZYDIS) 2.5 mg PRN Q2HRS PRN PO PSYCHOSIS 12/02/20 17:00 12/26/20 15:42 Potassium Chloride (Klor-Con) 20 meq DAILYWBKFT PO 12/04/20 08:00 12/26/20 08:58 Sertraline HCl (Zoloft) 25 mg DAILY PO 12/04/20 09:00 12/06/20 21:00 DC 12/06/20 08:17 Sertraline HCl (Zoloft) 50 mg DAILY PO 12/07/20 09:00 12/26/20 08:58 Quetiapine Fumarate (SEROquel) 12.5 mg 0900 PO 12/09/20 09:00 12/10/20 16:51 DC 12/10/20 09:00 Quetiapine Fumarate (SEROquel) 12.5 mg ONCE ONCE PO 12/08/20 17:15 12/08/20 17:16 DC 12/08/20 17:15 Quetiapine Fumarate (SEROquel) 12.5 mg 1700 PO 12/09/20 18:00 12/26/20 17:00 Quetiapine Fumarate (SEROquel) 25 mg 0900 PO 12/11/20 09:00 12/26/20 08:57 Divalproex Sodium (Depakote Sprinkles) 125 mg BID PO 12/12/20 21:00 12/13/20 10:16 DC 12/13/20 08:35 Trazodone HCl (Desyrel) 50 mg PRN QHS PRN PO INSOMNIA 12/13/20 00:30 12/16/20 19:32 Divalproex Sodium (Depakote Sprinkles) 125 mg 0900,1700 PO 12/13/20 17:00 12/13/20 17:49 DC 12/13/20 16:35 Valproic Acid (Depakene) 125 mg 0900,1700 PO 12/14/20 09:00 12/17/20 15:35 DC 12/17/20 08:39 Valproic Acid (Depakene) 125 mg [id number] PO 12/17/20 21:00 12/23/20 16:57 DC 12/23/20 14:05 Valproic Acid (Depakene) 125 mg QID PO 12/23/20 17:00 12/26/20 19:39 I have reviewed the current psychotropics carefully including drug interactions. Risk benefit ratio favors no change other than as noted in my dictated progress note. Diagnosis: Problems: (1) Major neurocognitive disorder (2) Impulse control disorder, unspecified (3) Anxiety disorder, unspecified (4) Dementia, vascular, with depression (5) Dementia, vascular, with delusions (6) Dementia in Alzheimer's disease with depression (7) Dementia in Alzheimer's disease with delusions (8) Dementia of the Alzheimer's type with early onset with behavioral disturbance EMILY CHARLES MD Dec 26, 2020 22:17
[2020-12-27 06:08] LABS: BASO % 1 % (0-3); EOS # 0.1 x10^3/uL (0.0-0.7); EOS % 3 % (0-3); HEMATOCRIT 33.8 % (36.0-47.0); HEMOGLOBIN 11.5 g/dL (12.0-15.5); LYMPH # 1.2 x10^3/uL (1.0-4.8); LYMPH % 27 % (24-48); MEAN CORPUSCULAR HEMOGLOBIN 32 pg (25-35); MEAN CORPUSCULAR HGB CONC 34 g/dL (31-37); MEAN CORPUSCULAR VOLUME 93 fL (79-100); MONO # 0.5 x10^3/uL (0.0-1.1); MONO % 11 % (0-9); NEUT # 2.6 x10^3uL (1.8-7.7); NEUT % 58 % (31-73); PLATELET COUNT 202 x10^3/uL (140-400); RED BLOOD COUNT 3.62 x10^6/uL (3.50-5.40); RED CELL DISTRIBUTION WIDTH 12.8 % (11.5-14.5); WHITE BLOOD COUNT 4.4 x10^3/uL (4.0-11.0)
[2020-12-27 06:21] LABS: ALBUMIN 3.5 g/dL (3.4-5.0); ALBUMIN/GLOBULIN RATIO 1.3 (1.0-1.7); ALK PHOS 60 U/L (46-116); ALT (SGPT) 28 U/L (14-59); ANION GAP 6 (6-14); AST (SGOT) 18 U/L (15-37); BLOOD UREA NITROGEN 15 mg/dL (7-20); BUN/CREATININE RATIO 19 (6-20); CALCIUM 8.7 mg/dL (8.5-10.1); CARBON DIOXIDE 29 mmol/L (21-32); CHLORIDE 109 mmol/L (98-107); CREATININE 0.8 mg/dL (0.6-1.0); GFR 68.5; GLUCOSE 93 mg/dL (70-99); POTASSIUM 4.1 mmol/L (3.5-5.1); SODIUM 144 mmol/L (136-145); TOTAL BILIRUBIN 0.4 mg/dL (0.2-1.0); TOTAL PROTEIN 6.2 g/dL (6.4-8.2)
[2020-12-27 06:25] LABS: VAL ACID 34 mcg/mL (50-100)
[2020-12-27 06:26] VITALS: BP 101/57
--- NOTE | 2020-12-27 07:02 | PDOC ---
Exam Note: Earle Note: This note is a late entry for 12/26/2020 covers elements not covered in my initial note. Subjective: The patient was seen individually in the morning of 12/26/2020 for a treatment team meeting with Maryana Rice, Cathy Hargrove (neonatal social worker), Elizabeth, activity therapy and Santana RN, discussed and reviewed the chart. The patient slept 8-3/4 hours previous night. Her Antonio attended the conference. She has been doing better today, compliant with medications. She attended 6 groups in the past one week. UA has reflux to culture. She may have UTI. We will defer to Dr. Baldwin. The UTI could be worsening some of her restlessness. Review of Systems: Ambulation impaired. No CV, , pulmonary, eye system symptoms on review. Reliability poor. Mental Status Exam: The patient is oriented to herself. Insight and judgment, recent and remote memory, attention and concentration is poor consistent with her diagnoses. Laboratory Data: Reviewed. Impression: Major neurocognitive disorder Alzheimer vascular with delusion, depression, and behavioral disturbance. Anxiety disorder unspecified. Impulse control disorder unspecified. Plan: Continue current psychotropics. Assessment: Vital Signs/I&O: Vital Signs Date Time Temp Pulse Resp B/P (MAP) Pulse Ox O2 Delivery O2 Flow Rate FiO2 12/27/20 06:26 96.6 71 14 101/57 (72) 96 12/26/20 05:59 Room Air I & O 12/26/20 12/26/20 12/27/20 15:00 23:00 07:00 Intake Total 480 ml 360 ml Balance 480 ml 360 ml Labs: Laboratory Tests Test 12/27/20 05:56 White Blood Count 4.4 x10^3/uL (4.0-11.0) Red Blood Count 3.62 x10^6/uL (3.50-5.40) Hemoglobin 11.5 g/dL (12.0-15.5) L Hematocrit 33.8 % (36.0-47.0) L Mean Corpuscular Volume 93 fL (79-100) Mean Corpuscular Hemoglobin 32 pg (25-35) Mean Corpuscular Hemoglobin Concent 34 g/dL (31-37) Red Cell Distribution Width 12.8 % (11.5-14.5) Platelet Count 202 x10^3/uL (140-400) Neutrophils (%) (Auto) 58 % (31-73) Lymphocytes (%) (Auto) 27 % (24-48) Monocytes (%) (Auto) 11 % (0-9) H Eosinophils (%) (Auto) 3 % (0-3) Basophils (%) (Auto) 1 % (0-3) Neutrophils # (Auto) 2.6 x10^3uL (1.8-7.7) Lymphocytes # (Auto) 1.2 x10^3/uL (1.0-4.8) Monocytes # (Auto) 0.5 x10^3/uL (0.0-1.1) Eosinophils # (Auto) 0.1 x10^3/uL (0.0-0.7) Basophils # (Auto) 0.0 x10^3/uL (0.0-0.2) Sodium Level 144 mmol/L (136-145) Potassium Level 4.1 mmol/L (3.5-5.1) Chloride Level 109 mmol/L (98-107) H Carbon Dioxide Level 29 mmol/L (21-32) Anion Gap 6 (6-14) Blood Urea Nitrogen 15 mg/dL (7-20) Creatinine 0.8 mg/dL (0.6-1.0) Estimated GFR (Cockcroft-Gault) 68.5 BUN/Creatinine Ratio 19 (6-20) Glucose Level 93 mg/dL (70-99) Calcium Level 8.7 mg/dL (8.5-10.1) Total Bilirubin 0.4 mg/dL (0.2-1.0) Aspartate Amino Transferase (AST) 18 U/L (15-37) Alanine Aminotransferase (ALT) 28 U/L (14-59) Alkaline Phosphatase 60 U/L (46-116) Total Protein 6.2 g/dL (6.4-8.2) L Albumin 3.5 g/dL (3.4-5.0) Albumin/Globulin Ratio 1.3 (1.0-1.7) Valproic Acid Level 34 mcg/mL (50-100) L Valproic Acid Last Dose Date 12/26/20 Valproic Acid Last Dose Time 2100 Current Medications: Meds: Laboratory Tests Test 12/27/20 05:56 White Blood Count 4.4 x10^3/uL Red Blood Count 3.62 x10^6/uL Hemoglobin 11.5 g/dL Hematocrit 33.8 % Mean Corpuscular Volume 93 fL Mean Corpuscular Hemoglobin 32 pg Mean Corpuscular Hemoglobin Concent 34 g/dL Red Cell Distribution Width 12.8 % Platelet Count 202 x10^3/uL Neutrophils (%) (Auto) 58 % Lymphocytes (%) (Auto) 27 % Monocytes (%) (Auto) 11 % Eosinophils (%) (Auto) 3 % Basophils (%) (Auto) 1 % Neutrophils # (Auto) 2.6 x10^3uL Lymphocytes # (Auto) 1.2 x10^3/uL Monocytes # (Auto) 0.5 x10^3/uL Eosinophils # (Auto) 0.1 x10^3/uL Basophils # (Auto) 0.0 x10^3/uL Sodium Level 144 mmol/L Potassium Level 4.1 mmol/L Chloride Level 109 mmol/L Carbon Dioxide Level 29 mmol/L Anion Gap 6 Blood Urea Nitrogen 15 mg/dL Creatinine 0.8 mg/dL Estimated GFR (Cockcroft-Gault) 68.5 BUN/Creatinine Ratio 19 Glucose Level 93 mg/dL Calcium Level 8.7 mg/dL Total Bilirubin 0.4 mg/dL Aspartate Amino Transf (AST/SGOT) 18 U/L Alanine Aminotransferase (ALT/SGPT) 28 U/L Alkaline Phosphatase 60 U/L Total Protein 6.2 g/dL Albumin 3.5 g/dL Albumin/Globulin Ratio 1.3 Valproic Acid (Depakene) Level 34 mcg/mL Valproic Acid Last Dose Date 12/26/20 Valproic Acid Last Dose Time 2100 Current Medications Medications (Trade) Dose Ordered Sig/Brianne Route PRN Reason Start Time Stop Time Status Last Admin Dose Admin Lorazepam (Ativan) 1 mg STK-MED ONCE .ROUTE 12/02/20 14:25 12/02/20 14:25 DC Lorazepam (Ativan) 1 mg 1X ONCE PO 12/02/20 14:30 12/02/20 14:36 DC 12/02/20 14:31 Potassium/ Phosphorus/Sodium (Phos-Nak) 1 pkt 1X ONCE PO 12/02/20 15:00 12/02/20 15:01 Cancel Potassium Bicarbonate (Potassium Effervescent Tablet) 20 meq STK-MED ONCE .ROUTE 12/02/20 14:56 12/02/20 14:57 DC Potassium Bicarbonate (Potassium Effervescent Tablet) 20 meq 1X ONCE PO 12/02/20 15:00 12/02/20 15:01 DC 12/02/20 15:00 Acetaminophen (Tylenol) 650 mg PRN Q6HRS PRN PO MILD PAIN / TEMP > 100.3'F 12/02/20 15:45 12/15/20 09:00 Multi-Ingredient Ointment (Analgesic [place]) 1 itz PRN QID PRN TP MUSCLE PAIN 12/02/20 15:45 Al Hydroxide/Mg Hydroxide (Mylanta Plus Xs) 15 ml PRN AFTMEALHC PRN PO DYSPEPSIA 12/02/20 15:45 Magnesium Hydroxide (Milk Of Magnesia) 2,400 mg PRN QHS PRN PO CONSTIPATION 12/02/20 15:45 12/03/20 16:29 Lisinopril (Prinivil) 10 mg DAILY PO 12/03/20 09:00 12/26/20 08:57 Multivitamins/ Calcium (Thera-M Plus) 1 tab DAILY PO 12/03/20 09:00 12/26/20 08:57 Olanzapine (ZyPREXA ZYDIS) 2.5 mg PRN Q2HRS PRN PO PSYCHOSIS 12/02/20 17:00 12/26/20 15:42 Potassium Chloride (Klor-Con) 20 meq DAILYWBKFT PO 12/04/20 08:00 12/26/20 08:58 Sertraline HCl (Zoloft) 25 mg DAILY PO 12/04/20 09:00 12/06/20 21:00 DC 12/06/20 08:17 Sertraline HCl (Zoloft) 50 mg DAILY PO 12/07/20 09:00 12/26/20 08:58 Quetiapine Fumarate (SEROquel) 12.5 mg 0900 PO 12/09/20 09:00 12/10/20 16:51 DC 12/10/20 09:00 Quetiapine Fumarate (SEROquel) 12.5 mg ONCE ONCE PO 12/08/20 17:15 12/08/20 17:16 DC 12/08/20 17:15 Quetiapine Fumarate (SEROquel) 12.5 mg 1700 PO 12/09/20 18:00 12/26/20 17:00 Quetiapine Fumarate (SEROquel) 25 mg 0900 PO 12/11/20 09:00 12/26/20 08:57 Divalproex Sodium (Depakote Sprinkles) 125 mg BID PO 12/12/20 21:00 12/13/20 10:16 DC 12/13/20 08:35 Trazodone HCl (Desyrel) 50 mg PRN QHS PRN PO INSOMNIA 12/13/20 00:30 12/16/20 19:32 Divalproex Sodium (Depakote Sprinkles) 125 mg 0900,1700 PO 12/13/20 17:00 12/13/20 17:49 DC 12/13/20 16:35 Valproic Acid (Depakene) 125 mg 0900,1700 PO 12/14/20 09:00 12/17/20 15:35 DC 12/17/20 08:39 Valproic Acid (Depakene) 125 mg [id number] PO 12/17/20 21:00 12/23/20 16:57 DC 12/23/20 14:05 Valproic Acid (Depakene) 125 mg QID PO 12/23/20 17:00 12/26/20 19:39 I have reviewed the current psychotropics carefully including drug interactions. Risk benefit ratio favors no change other than as noted in my dictated progress note. Diagnosis: Problems: (1) Major neurocognitive disorder (2) Impulse control disorder, unspecified (3) Anxiety disorder, unspecified (4) Dementia, vascular, with depression (5) Dementia, vascular, with delusions (6) Dementia in Alzheimer's disease with depression (7) Dementia in Alzheimer's disease with delusions (8) Dementia of the Alzheimer's type with early onset with behavioral disturbance EMILY CHARLES MD Dec 27, 2020 07:02
[2020-12-27] MEDS: POTASSIUM CHLORIDE 20 MEQ TABLET.ER. PO SCH (08:00)
[2020-12-27] MEDS: LISINOPRIL 10 MG TABLET PO SCH (09:00)
[2020-12-27] MEDS: SERTRALINE 50 MG TABLET. PO SCH (09:00)
[2020-12-27] MEDS: QUEtiapine 25 MG TABLET. PO SCH ×2 (09:00→17:00)
[2020-12-27] MEDS: MULTIVITAMIN with MINERAL TABLET. PO SCH (09:00)
[2020-12-27] MEDS: VALPROATE ACID 250 MG/5 ML ORAL SOLUTION PO SCH ×4 (09:00→20:37)
[2020-12-27 15:56] VITALS: BP 121/73
--- NOTE | 2020-12-27 22:02 | PDOC ---
Exam Note: Earle Note: Please also refer to the separate dictated note~for this date of service dictated separately.~Patient seen individually. Discussed the patient with Nursing staff reviewed the chart.~Reviewed interim history and current functioning. Reviewed vital signs,~Labs/ Radiology~and current medications noted below. Continue current treatment with the changes noted in the dictated addendum note Assessment: Vital Signs/I&O: Vital Signs Date Time Temp Pulse Resp B/P (MAP) Pulse Ox O2 Delivery O2 Flow Rate FiO2 12/27/20 15:56 97.8 94 18 121/73 (89) 97 12/26/20 05:59 Room Air I & O 12/26/20 12/26/20 12/27/20 15:00 23:00 07:00 Intake Total 480 ml 360 ml Balance 480 ml 360 ml Labs: Laboratory Tests Test 12/27/20 05:56 White Blood Count 4.4 x10^3/uL (4.0-11.0) Red Blood Count 3.62 x10^6/uL (3.50-5.40) Hemoglobin 11.5 g/dL (12.0-15.5) L Hematocrit 33.8 % (36.0-47.0) L Mean Corpuscular Volume 93 fL (79-100) Mean Corpuscular Hemoglobin 32 pg (25-35) Mean Corpuscular Hemoglobin Concent 34 g/dL (31-37) Red Cell Distribution Width 12.8 % (11.5-14.5) Platelet Count 202 x10^3/uL (140-400) Neutrophils (%) (Auto) 58 % (31-73) Lymphocytes (%) (Auto) 27 % (24-48) Monocytes (%) (Auto) 11 % (0-9) H Eosinophils (%) (Auto) 3 % (0-3) Basophils (%) (Auto) 1 % (0-3) Neutrophils # (Auto) 2.6 x10^3uL (1.8-7.7) Lymphocytes # (Auto) 1.2 x10^3/uL (1.0-4.8) Monocytes # (Auto) 0.5 x10^3/uL (0.0-1.1) Eosinophils # (Auto) 0.1 x10^3/uL (0.0-0.7) Basophils # (Auto) 0.0 x10^3/uL (0.0-0.2) Sodium Level 144 mmol/L (136-145) Potassium Level 4.1 mmol/L (3.5-5.1) Chloride Level 109 mmol/L (98-107) H Carbon Dioxide Level 29 mmol/L (21-32) Anion Gap 6 (6-14) Blood Urea Nitrogen 15 mg/dL (7-20) Creatinine 0.8 mg/dL (0.6-1.0) Estimated GFR (Cockcroft-Gault) 68.5 BUN/Creatinine Ratio 19 (6-20) Glucose Level 93 mg/dL (70-99) Calcium Level 8.7 mg/dL (8.5-10.1) Total Bilirubin 0.4 mg/dL (0.2-1.0) Aspartate Amino Transferase (AST) 18 U/L (15-37) Alanine Aminotransferase (ALT) 28 U/L (14-59) Alkaline Phosphatase 60 U/L (46-116) Total Protein 6.2 g/dL (6.4-8.2) L Albumin 3.5 g/dL (3.4-5.0) Albumin/Globulin Ratio 1.3 (1.0-1.7) Valproic Acid Level 34 mcg/mL (50-100) L Valproic Acid Last Dose Date 12/26/20 Valproic Acid Last Dose Time 2100 Current Medications: Meds: Laboratory Tests Test 12/27/20 05:56 White Blood Count 4.4 x10^3/uL Red Blood Count 3.62 x10^6/uL Hemoglobin 11.5 g/dL Hematocrit 33.8 % Mean Corpuscular Volume 93 fL Mean Corpuscular Hemoglobin 32 pg Mean Corpuscular Hemoglobin Concent 34 g/dL Red Cell Distribution Width 12.8 % Platelet Count 202 x10^3/uL Neutrophils (%) (Auto) 58 % Lymphocytes (%) (Auto) 27 % Monocytes (%) (Auto) 11 % Eosinophils (%) (Auto) 3 % Basophils (%) (Auto) 1 % Neutrophils # (Auto) 2.6 x10^3uL Lymphocytes # (Auto) 1.2 x10^3/uL Monocytes # (Auto) 0.5 x10^3/uL Eosinophils # (Auto) 0.1 x10^3/uL Basophils # (Auto) 0.0 x10^3/uL Sodium Level 144 mmol/L Potassium Level 4.1 mmol/L Chloride Level 109 mmol/L Carbon Dioxide Level 29 mmol/L Anion Gap 6 Blood Urea Nitrogen 15 mg/dL Creatinine 0.8 mg/dL Estimated GFR (Cockcroft-Gault) 68.5 BUN/Creatinine Ratio 19 Glucose Level 93 mg/dL Calcium Level 8.7 mg/dL Total Bilirubin 0.4 mg/dL Aspartate Amino Transf (AST/SGOT) 18 U/L Alanine Aminotransferase (ALT/SGPT) 28 U/L Alkaline Phosphatase 60 U/L Total Protein 6.2 g/dL Albumin 3.5 g/dL Albumin/Globulin Ratio 1.3 Valproic Acid (Depakene) Level 34 mcg/mL Valproic Acid Last Dose Date 12/26/20 Valproic Acid Last Dose Time 2100 Current Medications Medications (Trade) Dose Ordered Sig/Brianne Route PRN Reason Start Time Stop Time Status Last Admin Dose Admin Lorazepam (Ativan) 1 mg STK-MED ONCE .ROUTE 12/02/20 14:25 12/02/20 14:25 DC Lorazepam (Ativan) 1 mg 1X ONCE PO 12/02/20 14:30 12/02/20 14:36 DC 12/02/20 14:31 Potassium/ Phosphorus/Sodium (Phos-Nak) 1 pkt 1X ONCE PO 12/02/20 15:00 12/02/20 15:01 Cancel Potassium Bicarbonate (Potassium Effervescent Tablet) 20 meq STK-MED ONCE .ROUTE 12/02/20 14:56 12/02/20 14:57 DC Potassium Bicarbonate (Potassium Effervescent Tablet) 20 meq 1X ONCE PO 12/02/20 15:00 12/02/20 15:01 DC 12/02/20 15:00 Acetaminophen (Tylenol) 650 mg PRN Q6HRS PRN PO MILD PAIN / TEMP > 100.3'F 12/02/20 15:45 12/15/20 09:00 Multi-Ingredient Ointment (Analgesic [place]) 1 itz PRN QID PRN TP MUSCLE PAIN 12/02/20 15:45 Al Hydroxide/Mg Hydroxide (Mylanta Plus Xs) 15 ml PRN AFTMEALHC PRN PO DYSPEPSIA 12/02/20 15:45 Magnesium Hydroxide (Milk Of Magnesia) 2,400 mg PRN QHS PRN PO CONSTIPATION 12/02/20 15:45 12/03/20 16:29 Lisinopril (Prinivil) 10 mg DAILY PO 12/03/20 09:00 12/27/20 09:00 Multivitamins/ Calcium (Thera-M Plus) 1 tab DAILY PO 12/03/20 09:00 12/27/20 09:00 Olanzapine (ZyPREXA ZYDIS) 2.5 mg PRN Q2HRS PRN PO PSYCHOSIS 12/02/20 17:00 12/27/20 20:37 Potassium Chloride (Klor-Con) 20 meq DAILYWBKFT PO 12/04/20 08:00 12/27/20 08:00 Sertraline HCl (Zoloft) 25 mg DAILY PO 12/04/20 09:00 12/06/20 21:00 DC 12/06/20 08:17 Sertraline HCl (Zoloft) 50 mg DAILY PO 12/07/20 09:00 12/27/20 09:00 Quetiapine Fumarate (SEROquel) 12.5 mg 0900 PO 12/09/20 09:00 12/10/20 16:51 DC 12/10/20 09:00 Quetiapine Fumarate (SEROquel) 12.5 mg ONCE ONCE PO 12/08/20 17:15 12/08/20 17:16 DC 12/08/20 17:15 Quetiapine Fumarate (SEROquel) 12.5 mg 1700 PO 12/09/20 18:00 12/27/20 17:00 Quetiapine Fumarate (SEROquel) 25 mg 0900 PO 12/11/20 09:00 12/27/20 09:00 Divalproex Sodium (Depakote Sprinkles) 125 mg BID PO 12/12/20 21:00 12/13/20 10:16 DC 12/13/20 08:35 Trazodone HCl (Desyrel) 50 mg PRN QHS PRN PO INSOMNIA 12/13/20 00:30 12/16/20 19:32 Divalproex Sodium (Depakote Sprinkles) 125 mg 0900,1700 PO 12/13/20 17:00 12/13/20 17:49 DC 12/13/20 16:35 Valproic Acid (Depakene) 125 mg 0900,1700 PO 12/14/20 09:00 12/17/20 15:35 DC 12/17/20 08:39 Valproic Acid (Depakene) 125 mg [id number] PO 12/17/20 21:00 12/23/20 16:57 DC 12/23/20 14:05 Valproic Acid (Depakene) 125 mg QID PO 12/23/20 17:00 12/27/20 20:37 I have reviewed the current psychotropics carefully including drug interactions. Risk benefit ratio favors no change other than as noted in my dictated progress note. Diagnosis: Problems: (1) Major neurocognitive disorder (2) Impulse control disorder, unspecified (3) Anxiety disorder, unspecified (4) Dementia, vascular, with depression (5) Dementia, vascular, with delusions (6) Dementia in Alzheimer's disease with depression (7) Dementia in Alzheimer's disease with delusions (8) Dementia of the Alzheimer's type with early onset with behavioral disturbance EMILY CHARLES MD Dec 27, 2020 22:01
[2020-12-28 06:19] VITALS: BP 119/75
[2020-12-28] MEDS: SERTRALINE 50 MG TABLET. PO SCH (09:00)
[2020-12-28] MEDS: VALPROATE ACID 250 MG/5 ML ORAL SOLUTION PO SCH ×4 (09:40→19:33)
[2020-12-28] MEDS: QUEtiapine 25 MG TABLET. PO SCH ×2 (09:40→17:00)
[2020-12-28] MEDS: MULTIVITAMIN with MINERAL TABLET. PO SCH (09:40)
[2020-12-28] MEDS: POTASSIUM CHLORIDE 20 MEQ TABLET.ER. PO SCH (09:40)
[2020-12-28] MEDS: LISINOPRIL 10 MG TABLET PO SCH (09:41)
[2020-12-28 16:01] VITALS: BP 102/66
[2020-12-28 16:42] LABS: BILIRUBIN,URINE NEG (NEG); CLARITY,URINE HAZY; COLOR,URINE YELLOW; GLUCOSE,URINE NEG (NEG)
[2020-12-28 16:43] LABS: NITRITE,URINE NEG (NEG); UROBILINOGEN,URINE 0.2 mg/dL (0.2 mg/dL)
[2020-12-28 16:44] LABS: WBC,URINE TNTC /HPF (0-4)
[2020-12-28 16:45] LABS: BACTERIA,URINE FEW /HPF (0-FEW); SQUAMOUS EPITHELIAL CELL,UR MOD /LPF
--- NOTE | 2020-12-28 22:16 | PDOC ---
Exam Note: Earle Note: Please also refer to the separate dictated note~for this date of service dictated separately.~Patient seen individually. Discussed the patient with Nursing staff reviewed the chart.~Reviewed interim history and current functioning. Reviewed vital signs,~Labs/ Radiology~and current medications noted below. Continue current treatment with the changes noted in the dictated addendum note Assessment: Vital Signs/I&O: Vital Signs Date Time Temp Pulse Resp B/P (MAP) Pulse Ox O2 Delivery O2 Flow Rate FiO2 12/28/20 16:01 96.7 75 16 102/66 (78) 96 12/26/20 05:59 Room Air I & O 12/27/20 12/27/20 12/28/20 15:00 23:00 07:00 Intake Total 600 ml 480 ml Balance 600 ml 480 ml Labs: Laboratory Tests Test 12/28/20 16:00 Urine Collection Type Unknown Urine Color Yellow Urine Clarity Hazy Urine pH 6.0 Urine Specific [place] >=1.030 Urine Protein 30 mg/dl (NEG-TRACE) Urine Glucose (UA) Neg mg/dL (NEG) Urine Ketones (Stick) 15 mg/dL (NEG) Urine Blood Small (NEG) Urine Nitrite Neg (NEG) Urine Bilirubin Neg (NEG) Urine Urobilinogen Dipstick 0.2 mg/dL (0.2 mg/dL) Urine Leukocyte Esterase Mod (NEG) Urine RBC 3-5 /HPF (0-2) Urine WBC Tntc /HPF (0-4) Urine Squamous Epithelial Cells Mod /LPF Urine Bacteria Few /HPF (0-FEW) Urine Mucus Slight /LPF Current Medications: Meds: Laboratory Tests Test 12/28/20 16:00 Urine Collection Type Unknown Urine Color Yellow Urine Clarity Hazy Urine pH 6.0 Urine Specific [place] >=1.030 Urine Protein 30 mg/dl Urine Glucose (UA) Neg mg/dL Urine Ketones (Stick) 15 mg/dL Urine Blood Small Urine Nitrite Neg Urine Bilirubin Neg Urine Urobilinogen Dipstick 0.2 mg/dL Urine Leukocyte Esterase Mod Urine RBC 3-5 /HPF Urine WBC Tntc /HPF Urine Squamous Epithelial Cells Mod /LPF Urine Bacteria Few /HPF Urine Mucus Slight /LPF Current Medications Medications (Trade) Dose Ordered Sig/Brianne Route PRN Reason Start Time Stop Time Status Last Admin Dose Admin Lorazepam (Ativan) 1 mg STK-MED ONCE .ROUTE 12/02/20 14:25 12/02/20 14:25 DC Lorazepam (Ativan) 1 mg 1X ONCE PO 12/02/20 14:30 12/02/20 14:36 DC 12/02/20 14:31 Potassium/ Phosphorus/Sodium (Phos-Nak) 1 pkt 1X ONCE PO 12/02/20 15:00 12/02/20 15:01 Cancel Potassium Bicarbonate (Potassium Effervescent Tablet) 20 meq STK-MED ONCE .ROUTE 12/02/20 14:56 12/02/20 14:57 DC Potassium Bicarbonate (Potassium Effervescent Tablet) 20 meq 1X ONCE PO 12/02/20 15:00 12/02/20 15:01 DC 12/02/20 15:00 Acetaminophen (Tylenol) 650 mg PRN Q6HRS PRN PO MILD PAIN / TEMP > 100.3'F 12/02/20 15:45 12/15/20 09:00 Multi-Ingredient Ointment (Analgesic [place]) 1 itz PRN QID PRN TP MUSCLE PAIN 12/02/20 15:45 Al Hydroxide/Mg Hydroxide (Mylanta Plus Xs) 15 ml PRN AFTMEALHC PRN PO DYSPEPSIA 12/02/20 15:45 Magnesium Hydroxide (Milk Of Magnesia) 2,400 mg PRN QHS PRN PO CONSTIPATION 12/02/20 15:45 12/03/20 16:29 Lisinopril (Prinivil) 10 mg DAILY PO 12/03/20 09:00 12/28/20 09:41 Multivitamins/ Calcium (Thera-M Plus) 1 tab DAILY PO 12/03/20 09:00 12/28/20 09:40 Olanzapine (ZyPREXA ZYDIS) 2.5 mg PRN Q2HRS PRN PO PSYCHOSIS 12/02/20 17:00 12/28/20 19:33 Potassium Chloride (Klor-Con) 20 meq DAILYWBKFT PO 12/04/20 08:00 12/28/20 09:40 Sertraline HCl (Zoloft) 25 mg DAILY PO 12/04/20 09:00 12/06/20 21:00 DC 12/06/20 08:17 Sertraline HCl (Zoloft) 50 mg DAILY PO 12/07/20 09:00 12/28/20 09:00 Quetiapine Fumarate (SEROquel) 12.5 mg 0900 PO 12/09/20 09:00 12/10/20 16:51 DC 12/10/20 09:00 Quetiapine Fumarate (SEROquel) 12.5 mg ONCE ONCE PO 12/08/20 17:15 12/08/20 17:16 DC 12/08/20 17:15 Quetiapine Fumarate (SEROquel) 12.5 mg 1700 PO 12/09/20 18:00 12/28/20 17:00 Quetiapine Fumarate (SEROquel) 25 mg 0900 PO 12/11/20 09:00 12/28/20 09:40 Divalproex Sodium (Depakote Sprinkles) 125 mg BID PO 12/12/20 21:00 12/13/20 10:16 DC 12/13/20 08:35 Trazodone HCl (Desyrel) 50 mg PRN QHS PRN PO INSOMNIA 12/13/20 00:30 12/16/20 19:32 Divalproex Sodium (Depakote Sprinkles) 125 mg 0900,1700 PO 12/13/20 17:00 12/13/20 17:49 DC 12/13/20 16:35 Valproic Acid (Depakene) 125 mg 0900,1700 PO 12/14/20 09:00 12/17/20 15:35 DC 12/17/20 08:39 Valproic Acid (Depakene) 125 mg [id number] PO 12/17/20 21:00 12/23/20 16:57 DC 12/23/20 14:05 Valproic Acid (Depakene) 125 mg QID PO 12/23/20 17:00 12/28/20 19:33 I have reviewed the current psychotropics carefully including drug interactions. Risk benefit ratio favors no change other than as noted in my dictated progress note. Diagnosis: Problems: (1) Major neurocognitive disorder (2) Impulse control disorder, unspecified (3) Anxiety disorder, unspecified (4) Dementia, vascular, with depression (5) Dementia, vascular, with delusions (6) Dementia in Alzheimer's disease with depression (7) Dementia in Alzheimer's disease with delusions (8) Dementia of the Alzheimer's type with early onset with behavioral disturba nce MELVIN,MAN M MD Dec 28, 2020 22:16
[2020-12-29] MEDS: ACETAMINOPHEN 325 MG TABLET PO PRN (05:11)
[2020-12-29 05:50] VITALS: BP 133/73
[2020-12-29] MEDS: POTASSIUM CHLORIDE 20 MEQ TABLET.ER. PO SCH (07:58)
[2020-12-29] MEDS: LISINOPRIL 10 MG TABLET PO SCH (07:58)
[2020-12-29] MEDS: VALPROATE ACID 250 MG/5 ML ORAL SOLUTION PO SCH ×4 (07:58→19:39)
[2020-12-29] MEDS: QUEtiapine 25 MG TABLET. PO SCH ×2 (07:59→17:27)
[2020-12-29] MEDS: MULTIVITAMIN with MINERAL TABLET. PO SCH (07:59)
[2020-12-29] MEDS: SERTRALINE 50 MG TABLET. PO SCH (07:59)
--- NOTE | 2020-12-29 08:13 | PDOC ---
Exam Note: Earle Note: This note is a late entry for 12/27/2020 covers elements not covered in my initial note. Subjective: The patient was seen individually in the evening of 12/27/2020 with Santana APPIAH, discussed and reviewed the chart. The patient slept 7 hours previous night. She remains confused, somewhat restless. We will repeat UA as suggested by nursing staff since the previous specimen seemed contaminated. Valproic acid level is therapeutic and we will monitor this. She refused her medications in chocolate ice-cream. In the evening she was singing, joking, somewhat combative in the morning. I met with her in the dayroom. Review of Systems: Ambulation impaired. No CV, , pulmonary, eye system s ymptoms on review. Reliability poor. Mental Status Exam: The patient is oriented to herself. Insight and judgment, recent and remote memory, attention and concentration is poor consistent with her diagnoses. Laboratory Data: Reviewed. Impression: Major neurocognitive disorder Alzheimer vascular with delusion, depression, and behavioral disturbance. Anxiety disorder unspecified. Impulse control disorder unspecified. Plan: Continue current psychotropics. Assessment: Vital Signs/I&O: Vital Signs Date Time Temp Pulse Resp B/P (MAP) Pulse Ox O2 Delivery O2 Flow Rate FiO2 12/29/20 07:58 76 133/73 12/29/20 05:50 97.7 18 99 12/26/20 05:59 Room Air I & O 12/28/20 12/28/20 12/29/20 15:00 23:00 07:00 Intake Total 570 ml 240 ml Balance 570 ml 240 ml Labs: Laboratory Tests Test 12/28/20 16:00 Urine Collection Type Unknown Urine Color Yellow Urine Clarity Hazy Urine pH 6.0 Urine Specific [place] >=1.030 Urine Protein 30 mg/dl (NEG-TRACE) Urine Glucose (UA) Neg mg/dL (NEG) Urine Ketones (Stick) 15 mg/dL (NEG) Urine Blood Small (NEG) Urine Nitrite Neg (NEG) Urine Bilirubin Neg (NEG) Urine Urobilinogen Dipstick 0.2 mg/dL (0.2 mg/dL) Urine Leukocyte Esterase Mod (NEG) Urine RBC 3-5 /HPF (0-2) Urine WBC Tntc /HPF (0-4) Urine Squamous Epithelial Cells Mod /LPF Urine Bacteria Few /HPF (0-FEW) Urine Mucus Slight /LPF Current Medications: Meds: Laboratory Tests Test 12/28/20 16:00 Urine Collection Type Unknown Urine Color Yellow Urine Clarity Hazy Urine pH 6.0 Urine Specific [place] >=1.030 Urine Protein 30 mg/dl Urine Glucose (UA) Neg mg/dL Urine Ketones (Stick) 15 mg/dL Urine Blood Small Urine Nitrite Neg Urine Bilirubin Neg Urine Urobilinogen Dipstick 0.2 mg/dL Urine Leukocyte Esterase Mod Urine RBC 3-5 /HPF Urine WBC Tntc /HPF Urine Squamous Epithelial Cells Mod /LPF Urine Bacteria Few /HPF Urine Mucus Slight /LPF Current Medications Medications (Trade) Dose Ordered Sig/Brianne Route PRN Reason Start Time Stop Time Status Last Admin Dose Admin Lorazepam (Ativan) 1 mg STK-MED ONCE .ROUTE 12/02/20 14:25 12/02/20 14:25 DC Lorazepam (Ativan) 1 mg 1X ONCE PO 12/02/20 14:30 12/02/20 14:36 DC 12/02/20 14:31 Potassium/ Phosphorus/Sodium (Phos-Nak) 1 pkt 1X ONCE PO 12/02/20 15:00 12/02/20 15:01 Cancel Potassium Bicarbonate (Potassium Effervescent Tablet) 20 meq STK-MED ONCE .ROUTE 12/02/20 14:56 12/02/20 14:57 DC Potassium Bicarbonate (Potassium Effervescent Tablet) 20 meq 1X ONCE PO 12/02/20 15:00 12/02/20 15:01 DC 12/02/20 15:00 Acetaminophen (Tylenol) 650 mg PRN Q6HRS PRN PO MILD PAIN / TEMP > 100.3'F 12/02/20 15:45 12/29/20 05:11 Multi-Ingredient Ointment (Analgesic [place]) 1 itz PRN QID PRN TP MUSCLE PAIN 12/02/20 15:45 Al Hydroxide/Mg Hydroxide (Mylanta Plus Xs) 15 ml PRN AFTMEALHC PRN PO DYSPEPSIA 12/02/20 15:45 Magnesium Hydroxide (Milk Of Magnesia) 2,400 mg PRN QHS PRN PO CONSTIPATION 12/02/20 15:45 12/03/20 16:29 Lisinopril (Prinivil) 10 mg DAILY PO 12/03/20 09:00 12/29/20 07:58 Multivitamins/ Calcium (Thera-M Plus) 1 tab DAILY PO 12/03/20 09:00 12/29/20 07:59 Olanzapine (ZyPREXA ZYDIS) 2.5 mg PRN Q2HRS PRN PO PSYCHOSIS 12/02/20 17:00 12/28/20 19:33 Potassium Chloride (Klor-Con) 20 meq DAILYWBKFT PO 12/04/20 08:00 12/29/20 07:58 Sertraline HCl (Zoloft) 25 mg DAILY PO 12/04/20 09:00 12/06/20 21:00 DC 12/06/20 08:17 Sertraline HCl (Zoloft) 50 mg DAILY PO 12/07/20 09:00 12/29/20 07:59 Quetiapine Fumarate (SEROquel) 12.5 mg 0900 PO 12/09/20 09:00 12/10/20 16:51 DC 12/10/20 09:00 Quetiapine Fumarate (SEROquel) 12.5 mg ONCE ONCE PO 12/08/20 17:15 12/08/20 17:16 DC 12/08/20 17:15 Quetiapine Fumarate (SEROquel) 12.5 mg 1700 PO 12/09/20 18:00 12/28/20 17:00 Quetiapine Fumarate (SEROquel) 25 mg 0900 PO 12/11/20 09:00 12/29/20 07:59 Divalproex Sodium (Depakote Sprinkles) 125 mg BID PO 12/12/20 21:00 12/13/20 10:16 DC 12/13/20 08:35 Trazodone HCl (Desyrel) 50 mg PRN QHS PRN PO INSOMNIA 12/13/20 00:30 12/16/20 19:32 Divalproex Sodium (Depakote Sprinkles) 125 mg 0900,1700 PO 12/13/20 17:00 12/13/20 17:49 DC 12/13/20 16:35 Valproic Acid (Depakene) 125 mg 0900,1700 PO 12/14/20 09:00 12/17/20 15:35 DC 12/17/20 08:39 Valproic Acid (Depakene) 125 mg [id number] PO 12/17/20 21:00 12/23/20 16:57 DC 12/23/20 14:05 Valproic Acid (Depakene) 125 mg QID PO 12/23/20 17:00 12/29/20 07:58 I have reviewed the current psychotropics carefully including drug interactions. Risk benefit ratio favors no change other than as noted in my dictated progress note. Diagnosis: Problems: (1) Major neurocognitive disorder (2) Impulse control disorder, unspecified (3) Anxiety disorder, unspecified (4) Dementia, vascular, with depression (5) Dementia, vascular, with delusions (6) Dementia in Alzheimer's disease with depression (7) Dementia in Alzheimer's disease with delusions (8) Dementia of the Alzheimer's type with early onset with behavioral disturbance EMILY CHARLES MD Dec 29, 2020 08:12
--- NOTE | 2020-12-29 08:35 | PDOC ---
Exam Note: Earle Note: This note is a late entry for 12/28/2020 covers elements not covered in my initial note. Subjective: The patient was seen individually in the evening of 12/28/2020 with Santana APPIAH, discussed and reviewed the chart. The patient slept 7 hours previous night. Overall she has had a great day, compliant with medications. UA is awaited which has been repeated. Review of Systems: Ambulation impaired. No CV, , pulmonary, eye system symptoms on review. Reliability poor. Mental Status Exam: The patient is oriented to herself. I met with her in the dayroom, talked about [place] her and she had some very vague recollection of the name. Insight and judgment, recent and remote memory, attention and concentration is poor consistent with her diagnoses. Laboratory Data: Reviewed. Impression: Major neurocognitive disorder Alzheimer vascular with delusion, depression, and behavioral disturbance. Anxiety disorder unspecified. Impulse control disorder unspecified. Plan: Continue current psychotropics. Await UA results. Treat if UTI positive. Assessment: Vital Signs/I&O: Vital Signs Date Time Temp Pulse Resp B/P (MAP) Pulse Ox O2 Delivery O2 Flow Rate FiO2 12/29/20 07:58 76 133/73 12/29/20 05:50 97.7 18 99 12/26/20 05:59 Room Air I & O 12/28/20 12/28/20 12/29/20 14:59 22:59 06:59 Intake Total 570 ml 240 ml Balance 570 ml 240 ml Labs: Laboratory Tests Test 12/28/20 16:00 Urine Collection Type Unknown Urine Color Yellow Urine Clarity Hazy Urine pH 6.0 Urine Specific [place] >=1.030 Urine Protein 30 mg/dl (NEG-TRACE) Urine Glucose (UA) Neg mg/dL (NEG) Urine Ketones (Stick) 15 mg/dL (NEG) Urine Blood Small (NEG) Urine Nitrite Neg (NEG) Urine Bilirubin Neg (NEG) Urine Urobilinogen Dipstick 0.2 mg/dL (0.2 mg/dL) Urine Leukocyte Esterase Mod (NEG) Urine RBC 3-5 /HPF (0-2) Urine WBC Tntc /HPF (0-4) Urine Squamous Epithelial Cells Mod /LPF Urine Bacteria Few /HPF (0-FEW) Urine Mucus Slight /LPF Current Medications: Meds: Laboratory Tests Test 12/28/20 16:00 Urine Collection Type Unknown Urine Color Yellow Urine Clarity Hazy Urine pH 6.0 Urine Specific [place] >=1.030 Urine Protein 30 mg/dl Urine Glucose (UA) Neg mg/dL Urine Ketones (Stick) 15 mg/dL Urine Blood Small Urine Nitrite Neg Urine Bilirubin Neg Urine Urobilinogen Dipstick 0.2 mg/dL Urine Leukocyte Esterase Mod Urine RBC 3-5 /HPF Urine WBC Tntc /HPF Urine Squamous Epithelial Cells Mod /LPF Urine Bacteria Few /HPF Urine Mucus Slight /LPF Current Medications Medications (Trade) Dose Ordered Sig/Brianne Route PRN Reason Start Time Stop Time Status Last Admin Dose Admin Lorazepam (Ativan) 1 mg STK-MED ONCE .ROUTE 12/02/20 14:25 12/02/20 14:25 DC Lorazepam (Ativan) 1 mg 1X ONCE PO 12/02/20 14:30 12/02/20 14:36 DC 12/02/20 14:31 Potassium/ Phosphorus/Sodium (Phos-Nak) 1 pkt 1X ONCE PO 12/02/20 15:00 12/02/20 15:01 Cancel Potassium Bicarbonate (Potassium Effervescent Tablet) 20 meq STK-MED ONCE .ROUTE 12/02/20 14:56 12/02/20 14:57 DC Potassium Bicarbonate (Potassium Effervescent Tablet) 20 meq 1X ONCE PO 12/02/20 15:00 12/02/20 15:01 DC 12/02/20 15:00 Acetaminophen (Tylenol) 650 mg PRN Q6HRS PRN PO MILD PAIN / TEMP > 100.3'F 12/02/20 15:45 12/29/20 05:11 Multi-Ingredient Ointment (Analgesic [place]) 1 itz PRN QID PRN TP MUSCLE PAIN 12/02/20 15:45 Al Hydroxide/Mg Hydroxide (Mylanta Plus Xs) 15 ml PRN AFTMEALHC PRN PO DYSPEPSIA 12/02/20 15:45 Magnesium Hydroxide (Milk Of Magnesia) 2,400 mg PRN QHS PRN PO CONSTIPATION 12/02/20 15:45 12/03/20 16:29 Lisinopril (Prinivil) 10 mg DAILY PO 12/03/20 09:00 12/29/20 07:58 Multivitamins/ Calcium (Thera-M Plus) 1 tab DAILY PO 12/03/20 09:00 12/29/20 07:59 Olanzapine (ZyPREXA ZYDIS) 2.5 mg PRN Q2HRS PRN PO PSYCHOSIS 12/02/20 17:00 12/28/20 19:33 Potassium Chloride (Klor-Con) 20 meq DAILYWBKFT PO 12/04/20 08:00 12/29/20 07:58 Sertraline HCl (Zoloft) 25 mg DAILY PO 12/04/20 09:00 12/06/20 21:00 DC 12/06/20 08:17 Sertraline HCl (Zoloft) 50 mg DAILY PO 12/07/20 09:00 12/29/20 07:59 Quetiapine Fumarate (SEROquel) 12.5 mg 0900 PO 12/09/20 09:00 12/10/20 16:51 DC 12/10/20 09:00 Quetiapine Fumarate (SEROquel) 12.5 mg ONCE ONCE PO 12/08/20 17:15 12/08/20 17:16 DC 12/08/20 17:15 Quetiapine Fumarate (SEROquel) 12.5 mg 1700 PO 12/09/20 18:00 12/28/20 17:00 Quetiapine Fumarate (SEROquel) 25 mg 0900 PO 12/11/20 09:00 12/29/20 07:59 Divalproex Sodium (Depakote Sprinkles) 125 mg BID PO 12/12/20 21:00 12/13/20 10:16 DC 12/13/20 08:35 Trazodone HCl (Desyrel) 50 mg PRN QHS PRN PO INSOMNIA 12/13/20 00:30 12/16/20 19:32 Divalproex Sodium (Depakote Sprinkles) 125 mg 0900,1700 PO 12/13/20 17:00 12/13/20 17:49 DC 12/13/20 16:35 Valproic Acid (Depakene) 125 mg 0900,1700 PO 12/14/20 09:00 12/17/20 15:35 DC 12/17/20 08:39 Valproic Acid (Depakene) 125 mg [id number] PO 12/17/20 21:00 12/23/20 16:57 DC 12/23/20 14:05 Valproic Acid (Depakene) 125 mg QID PO 12/23/20 17:00 12/29/20 07:58 I have reviewed the current psychotropics carefully including drug interactions. Risk benefit ratio favors no change other than as noted in my dictated progress note. Diagnosis: Problems: (1) Major neurocognitive disorder (2) Impulse control disorder, unspecified (3) Anxiety disorder, unspecified (4) Dementia, vascular, with depression (5) Dementia, vascular, with delusions (6) Dementia in Alzheimer's disease with depression (7) Dementia in Alzheimer's disease with delusions (8) Dementia of the Alzheimer's type with early onset with behavioral disturbance EMILY CHARLES MD Dec 29, 2020 08:35
[2020-12-29 16:04] VITALS: BP 129/84
--- NOTE | 2020-12-29 22:10 | PDOC ---
Exam Note: Earle Note: Please also refer to the separate dictated note~for this date of service dictated separately.~Patient seen individually. Discussed the patient with Nursing staff reviewed the chart.~Reviewed interim history and current functioning. Reviewed vital signs,~Labs/ Radiology~and current medications noted below. Continue current treatment with the changes noted in the dictated addendum note Assessment: Vital Signs/I&O: Vital Signs Date Time Temp Pulse Resp B/P (MAP) Pulse Ox O2 Delivery O2 Flow Rate FiO2 12/29/20 16:04 97.8 86 18 129/84 (99) 100 12/26/20 05:59 Room Air I & O 12/28/20 12/28/20 12/29/20 15:00 23:00 07:00 Intake Total 570 ml 240 ml Balance 570 ml 240 ml Current Medications: Meds: Current Medications Medications (Trade) Dose Ordered Sig/Brianne Route PRN Reason Start Time Stop Time Status Last Admin Dose Admin Lorazepam (Ativan) 1 mg STK-MED ONCE .ROUTE 12/02/20 14:25 12/02/20 14:25 DC Lorazepam (Ativan) 1 mg 1X ONCE PO 12/02/20 14:30 12/02/20 14:36 DC 12/02/20 14:31 Potassium/ Phosphorus/Sodium (Phos-Nak) 1 pkt 1X ONCE PO 12/02/20 15:00 12/02/20 15:01 Cancel Potassium Bicarbonate (Potassium Effervescent Tablet) 20 meq STK-MED ONCE .ROUTE 12/02/20 14:56 12/02/20 14:57 DC Potassium Bicarbonate (Potassium Effervescent Tablet) 20 meq 1X ONCE PO 12/02/20 15:00 12/02/20 15:01 DC 12/02/20 15:00 Acetaminophen (Tylenol) 650 mg PRN Q6HRS PRN PO MILD PAIN / TEMP > 100.3'F 12/02/20 15:45 12/29/20 05:11 Multi-Ingredient Ointment (Analgesic [place]) 1 itz PRN QID PRN TP MUSCLE PAIN 12/02/20 15:45 Al Hydroxide/Mg Hydroxide (Mylanta Plus Xs) 15 ml PRN AFTMEALHC PRN PO DYSPEPSIA 12/02/20 15:45 Magnesium Hydroxide (Milk Of Magnesia) 2,400 mg PRN QHS PRN PO CONSTIPATION 12/02/20 15:45 12/03/20 16:29 Lisinopril (Prinivil) 10 mg DAILY PO 12/03/20 09:00 12/29/20 07:58 Multivitamins/ Calcium (Thera-M Plus) 1 tab DAILY PO 12/03/20 09:00 12/29/20 07:59 Olanzapine (ZyPREXA ZYDIS) 2.5 mg PRN Q2HRS PRN PO PSYCHOSIS 12/02/20 17:00 12/29/20 19:39 Potassium Chloride (Klor-Con) 20 meq DAILYWBKFT PO 12/04/20 08:00 12/29/20 07:58 Sertraline HCl (Zoloft) 25 mg DAILY PO 12/04/20 09:00 12/06/20 21:00 DC 12/06/20 08:17 Sertraline HCl (Zoloft) 50 mg DAILY PO 12/07/20 09:00 12/29/20 07:59 Quetiapine Fumarate (SEROquel) 12.5 mg 0900 PO 12/09/20 09:00 12/10/20 16:51 DC 12/10/20 09:00 Quetiapine Fumarate (SEROquel) 12.5 mg ONCE ONCE PO 12/08/20 17:15 12/08/20 17:16 DC 12/08/20 17:15 Quetiapine Fumarate (SEROquel) 12.5 mg 1700 PO 12/09/20 18:00 12/29/20 17:27 Quetiapine Fumarate (SEROquel) 25 mg 0900 PO 12/11/20 09:00 12/29/20 07:59 Divalproex Sodium (Depakote Sprinkles) 125 mg BID PO 12/12/20 21:00 12/13/20 10:16 DC 12/13/20 08:35 Trazodone HCl (Desyrel) 50 mg PRN QHS PRN PO INSOMNIA 12/13/20 00:30 12/16/20 19:32 Divalproex Sodium (Depakote Sprinkles) 125 mg 0900,1700 PO 12/13/20 17:00 12/13/20 17:49 DC 12/13/20 16:35 Valproic Acid (Depakene) 125 mg 0900,1700 PO 12/14/20 09:00 12/17/20 15:35 DC 12/17/20 08:39 Valproic Acid (Depakene) 125 mg [id number] PO 12/17/20 21:00 12/23/20 16:57 DC 12/23/20 14:05 Valproic Acid (Depakene) 125 mg QID PO 12/23/20 17:00 12/29/20 17:27 Hydroxyzine HCl (Atarax) 10 mg PRN Q2HR PRN PO ITCHING 12/29/20 20:15 I have reviewed the current psychotropics carefully including drug interactions. Risk benefit ratio favors no change other than as noted in my dictated progress note. 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
[2020-12-30 06:06] VITALS: BP 111/79
--- NOTE | 2020-12-30 06:51 | PDOC ---
Exam Note: Earle Note: This note is a late entry for 12/29/2020 covers elements not covered in my initial note. Subjective: The patient was seen individually in the evening of 12/29/2020 with Santana APPIAH, discussed and reviewed the chart. The patient slept 6-1/4 hours previous night. Overall she has done much better today. UA is pending, anxious previous evening, got Zyprexa Zydis. She did take nap today, smiling. came to visit her, felt behaviors were much better. Apparently did well most of the day. I met with her in the evening and during that time Kady APPIAH requested different p.r.n. since she was more agitated, door checking. Zyprexa was ineffective. We will add hydroxyzine 10 mg q.2h. p.r.n. anxiety, max 50 mg in 24 hours. Review of Systems: Ambulation impaired. No CV, , pulmonary, eye system symptoms on review. Reliability poor. Mental Status Exam: The patient is oriented to herself. Insight and judgment, recent and remote memory, attention and concentration is poor consistent with her diagnoses. Laboratory Data: Reviewed. Impression: Major neurocognitive disorder Alzheimer vascular with delusion, depression, and behavioral disturbance. Anxiety disorder unspecified. Impulse control disorder unspecified. Plan: Continue current psychotropics. Zyprexa was ineffective. We will add hydroxyzine 10 mg q.2h. p.r.n. anxiety, max 50 mg in 24 hours. Assessment: Vital Signs/I&O: Vital Signs Date Time Temp Pulse Resp B/P (MAP) Pulse Ox O2 Delivery O2 Flow Rate FiO2 12/30/20 06:06 97.0 60 16 111/79 (90) 97 12/26/20 05:59 Room Air I & O 12/29/20 12/29/20 12/30/20 14:59 22:59 06:59 Intake Total 720 ml 360 ml Balance 720 ml 360 ml Current Medications: Meds: Current Medications Medications (Trade) Dose Ordered Sig/Brianne Route PRN Reason Start Time Stop Time Status Last Admin Dose Admin Lorazepam (Ativan) 1 mg STK-MED ONCE .ROUTE 12/02/20 14:25 12/02/20 14:25 DC Lorazepam (Ativan) 1 mg 1X ONCE PO 12/02/20 14:30 12/02/20 14:36 DC 12/02/20 14:31 Potassium/ Phosphorus/Sodium (Phos-Nak) 1 pkt 1X ONCE PO 12/02/20 15:00 12/02/20 15:01 Cancel Potassium Bicarbonate (Potassium Effervescent Tablet) 20 meq STK-MED ONCE .ROUTE 12/02/20 14:56 12/02/20 14:57 DC Potassium Bicarbonate (Potassium Effervescent Tablet) 20 meq 1X ONCE PO 12/02/20 15:00 12/02/20 15:01 DC 12/02/20 15:00 Acetaminophen (Tylenol) 650 mg PRN Q6HRS PRN PO MILD PAIN / TEMP > 100.3'F 12/02/20 15:45 12/29/20 05:11 Multi-Ingredient Ointment (Analgesic [place]) 1 itz PRN QID PRN TP MUSCLE PAIN 12/02/20 15:45 Al Hydroxide/Mg Hydroxide (Mylanta Plus Xs) 15 ml PRN AFTMEALHC PRN PO DYSPEPSIA 12/02/20 15:45 Magnesium Hydroxide (Milk Of Magnesia) 2,400 mg PRN QHS PRN PO CONSTIPATION 12/02/20 15:45 12/03/20 16:29 Lisinopril (Prinivil) 10 mg DAILY PO 12/03/20 09:00 12/29/20 07:58 Multivitamins/ Calcium (Thera-M Plus) 1 tab DAILY PO 12/03/20 09:00 12/29/20 07:59 Olanzapine (ZyPREXA ZYDIS) 2.5 mg PRN Q2HRS PRN PO PSYCHOSIS 12/02/20 17:00 12/29/20 19:39 Potassium Chloride (Klor-Con) 20 meq DAILYWBKFT PO 12/04/20 08:00 12/29/20 07:58 Sertraline HCl (Zoloft) 25 mg DAILY PO 12/04/20 09:00 12/06/20 21:00 DC 12/06/20 08:17 Sertraline HCl (Zoloft) 50 mg DAILY PO 12/07/20 09:00 12/29/20 07:59 Quetiapine Fumarate (SEROquel) 12.5 mg 0900 PO 12/09/20 09:00 12/10/20 16:51 DC 12/10/20 09:00 Quetiapine Fumarate (SEROquel) 12.5 mg ONCE ONCE PO 12/08/20 17:15 12/08/20 17:16 DC 12/08/20 17:15 Quetiapine Fumarate (SEROquel) 12.5 mg 1700 PO 12/09/20 18:00 12/29/20 17:27 Quetiapine Fumarate (SEROquel) 25 mg 0900 PO 12/11/20 09:00 12/29/20 07:59 Divalproex Sodium (Depakote Sprinkles) 125 mg BID PO 12/12/20 21:00 12/13/20 10:16 DC 12/13/20 08:35 Trazodone HCl (Desyrel) 50 mg PRN QHS PRN PO INSOMNIA 12/13/20 00:30 12/16/20 19:32 Divalproex Sodium (Depakote Sprinkles) 125 mg 0900,1700 PO 12/13/20 17:00 12/13/20 17:49 DC 12/13/20 16:35 Valproic Acid (Depakene) 125 mg 0900,1700 PO 12/14/20 09:00 12/17/20 15:35 DC 12/17/20 08:39 Valproic Acid (Depakene) 125 mg [id number] PO 12/17/20 21:00 12/23/20 16:57 DC 12/23/20 14:05 Valproic Acid (Depakene) 125 mg QID PO 12/23/20 17:00 12/29/20 17:27 Hydroxyzine HCl (Atarax) 10 mg PRN Q2HR PRN PO ITCHING 12/29/20 20:15 I have reviewed the current psychotropics carefully including drug interactions. Risk benefit ratio favors no change other than as noted in my dictated progress note. Diagnosis: Problems: (1) Major neurocognitive disorder (2) Impulse control disorder, unspecified (3) Anxiety disorder, unspecified (4) Dementia, vascular, with depression (5) Dementia, vascular, with delusions (6) Dementia in Alzheimer's disease with depression (7) Dementia in Alzheimer's disease with delusions (8) Dementia of the Alzheimer's type with early onset with behavioral disturbance EMILY CHARLES MD Dec 30, 2020 06:51
[2020-12-30] MEDS: POTASSIUM CHLORIDE 20 MEQ TABLET.ER. PO SCH (08:00)
[2020-12-30] MEDS: QUEtiapine 25 MG TABLET. PO SCH ×2 (08:26→17:00)
[2020-12-30] MEDS: LISINOPRIL 10 MG TABLET PO SCH (08:26)
[2020-12-30] MEDS: MULTIVITAMIN with MINERAL TABLET. PO SCH (08:26)
[2020-12-30] MEDS: SERTRALINE 50 MG TABLET. PO SCH (08:26)
[2020-12-30] MEDS: VALPROATE ACID 250 MG/5 ML ORAL SOLUTION PO SCH ×4 (08:27→19:48)
[2020-12-30 15:44] VITALS: BP 131/79
[2020-12-30] MEDS: hydrOXYzine HCL 10 MG TABLET PO PRN (19:49)
--- NOTE | 2020-12-30 22:07 | PDOC ---
Exam Note: Earle Note: Please also refer to the separate dictated note~for this date of service dictated separately.~Patient seen individually. Discussed the patient with Nursing staff reviewed the chart.~Reviewed interim history and current functioning. Reviewed vital signs,~Labs/ Radiology~and current medications noted below. Continue current treatment with the changes noted in the dictated addendum note Assessment: Vital Signs/I&O: Vital Signs Date Time Temp Pulse Resp B/P (MAP) Pulse Ox O2 Delivery O2 Flow Rate FiO2 12/30/20 15:44 97.6 81 20 131/79 (96) 98 12/26/20 05:59 Room Air I & O 12/29/20 12/29/20 12/30/20 15:00 23:00 07:00 Intake Total 720 ml 360 ml Balance 720 ml 360 ml Current Medications: Meds: Current Medications Medications (Trade) Dose Ordered Sig/Brianne Route PRN Reason Start Time Stop Time Status Last Admin Dose Admin Lorazepam (Ativan) 1 mg STK-MED ONCE .ROUTE 12/02/20 14:25 12/02/20 14:25 DC Lorazepam (Ativan) 1 mg 1X ONCE PO 12/02/20 14:30 12/02/20 14:36 DC 12/02/20 14:31 Potassium/ Phosphorus/Sodium (Phos-Nak) 1 pkt 1X ONCE PO 12/02/20 15:00 12/02/20 15:01 Cancel Potassium Bicarbonate (Potassium Effervescent Tablet) 20 meq STK-MED ONCE .ROUTE 12/02/20 14:56 12/02/20 14:57 DC Potassium Bicarbonate (Potassium Effervescent Tablet) 20 meq 1X ONCE PO 12/02/20 15:00 12/02/20 15:01 DC 12/02/20 15:00 Acetaminophen (Tylenol) 650 mg PRN Q6HRS PRN PO MILD PAIN / TEMP > 100.3'F 12/02/20 15:45 12/29/20 05:11 Multi-Ingredient Ointment (Analgesic [place]) 1 itz PRN QID PRN TP MUSCLE PAIN 12/02/20 15:45 Al Hydroxide/Mg Hydroxide (Mylanta Plus Xs) 15 ml PRN AFTMEALHC PRN PO DYSPEPSIA 12/02/20 15:45 Magnesium Hydroxide (Milk Of Magnesia) 2,400 mg PRN QHS PRN PO CONSTIPATION 12/02/20 15:45 12/03/20 16:29 Lisinopril (Prinivil) 10 mg DAILY PO 12/03/20 09:00 12/30/20 08:26 Multivitamins/ Calcium (Thera-M Plus) 1 tab DAILY PO 12/03/20 09:00 12/30/20 08:26 Olanzapine (ZyPREXA ZYDIS) 2.5 mg PRN Q2HRS PRN PO PSYCHOSIS 12/02/20 17:00 12/30/20 14:44 Potassium Chloride (Klor-Con) 20 meq DAILYWBKFT PO 12/04/20 08:00 12/30/20 08:00 Sertraline HCl (Zoloft) 25 mg DAILY PO 12/04/20 09:00 12/06/20 21:00 DC 12/06/20 08:17 Sertraline HCl (Zoloft) 50 mg DAILY PO 12/07/20 09:00 12/30/20 08:26 Quetiapine Fumarate (SEROquel) 12.5 mg 0900 PO 12/09/20 09:00 12/10/20 16:51 DC 12/10/20 09:00 Quetiapine Fumarate (SEROquel) 12.5 mg ONCE ONCE PO 12/08/20 17:15 12/08/20 17:16 DC 12/08/20 17:15 Quetiapine Fumarate (SEROquel) 12.5 mg 1700 PO 12/09/20 18:00 12/30/20 17:00 Quetiapine Fumarate (SEROquel) 25 mg 0900 PO 12/11/20 09:00 12/30/20 08:26 Divalproex Sodium (Depakote Sprinkles) 125 mg BID PO 12/12/20 21:00 12/13/20 10:16 DC 12/13/20 08:35 Trazodone HCl (Desyrel) 50 mg PRN QHS PRN PO INSOMNIA 12/13/20 00:30 12/16/20 19:32 Divalproex Sodium (Depakote Sprinkles) 125 mg 0900,1700 PO 12/13/20 17:00 12/13/20 17:49 DC 12/13/20 16:35 Valproic Acid (Depakene) 125 mg 0900,1700 PO 12/14/20 09:00 12/17/20 15:35 DC 12/17/20 08:39 Valproic Acid (Depakene) 125 mg [id number] PO 12/17/20 21:00 12/23/20 16:57 DC 12/23/20 14:05 Valproic Acid (Depakene) 125 mg QID PO 12/23/20 17:00 12/30/20 19:48 Hydroxyzine HCl (Atarax) 10 mg PRN Q2HR PRN PO ITCHING 12/29/20 20:15 12/30/20 19:49 I have reviewed the current psychotropics carefully including drug interactions. Risk benefit ratio favors no change other than as noted in my dictated progress note. Diagnosis: Problems: (1) Major neurocognitive disorder (2) Impulse control disorder, unspecified (3) Anxiety disorder, unspecified (4) Dementia, vascular, with depression (5) Dementia, vascular, with delusions (6) Dementia in Alzheimer's disease with depression (7) Dementia in Alzheimer's disease with delusions (8) Dementia of the Alzheimer's type with early onset with behavioral disturbance EMILY CHARLES MD Dec 30, 2020 22:07
--- NOTE | 2020-12-31 07:13 | PDOC ---
Exam Note: Earle Note: This note is a late entry for 12/30/2020 covers elements not covered in my initial note. Subjective: The patient was seen individually in the evening of 12/30/2020 with Tiffany APPIAH, discussed and reviewed the chart. The patient slept 7-1/2 hours previous night. Previous night she was somewhat agitated. Received Zyprexa and Atarax which had to be syringed. Today she is somewhat impulsive. Received Zyprexa at 1444. She was calmer later. Review of Systems: Ambulation impaired. No CV, , pulmonary, eye system symptoms on review. Reliability poor. Mental Status Exam: The patient is oriented to herself. Insight and judgment, recent and remote memory, attention and concentration is poor consistent with her diagnoses. Laboratory Data: Reviewed. Impression: Major neurocognitive disorder Alzheimer vascular with delusion, depression, and behavioral disturbance. Anxiety disorder unspecified. Impulse control disorder unspecified. Plan: Continue current psychotropics. Assessment: Vital Signs/I&O: Vital Signs Date Time Temp Pulse Resp B/P (MAP) Pulse Ox O2 Delivery O2 Flow Rate FiO2 12/30/20 15:44 97.6 81 20 131/79 (96) 98 12/26/20 05:59 Room Air I & O 12/30/20 12/30/20 12/31/20 15:00 23:00 07:00 Intake Total 600 ml 360 ml Balance 600 ml 360 ml Current Medications: Meds: Current Medications Medications (Trade) Dose Ordered Sig/Brianne Route PRN Reason Start Time Stop Time Status Last Admin Dose Admin Lorazepam (Ativan) 1 mg STK-MED ONCE .ROUTE 12/02/20 14:25 12/02/20 14:25 DC Lorazepam (Ativan) 1 mg 1X ONCE PO 12/02/20 14:30 12/02/20 14:36 DC 12/02/20 14:31 Potassium/ Phosphorus/Sodium (Phos-Nak) 1 pkt 1X ONCE PO 12/02/20 15:00 12/02/20 15:01 Cancel Potassium Bicarbonate (Potassium Effervescent Tablet) 20 meq STK-MED ONCE .ROUTE 12/02/20 14:56 12/02/20 14:57 DC Potassium Bicarbonate (Potassium Effervescent Tablet) 20 meq 1X ONCE PO 12/02/20 15:00 12/02/20 15:01 DC 12/02/20 15:00 Acetaminophen (Tylenol) 650 mg PRN Q6HRS PRN PO MILD PAIN / TEMP > 100.3'F 12/02/20 15:45 12/29/20 05:11 Multi-Ingredient Ointment (Analgesic [place]) 1 itz PRN QID PRN TP MUSCLE PAIN 12/02/20 15:45 Al Hydroxide/Mg Hydroxide (Mylanta Plus Xs) 15 ml PRN AFTMEALHC PRN PO DYSPEPSIA 12/02/20 15:45 Magnesium Hydroxide (Milk Of Magnesia) 2,400 mg PRN QHS PRN PO CONSTIPATION 12/02/20 15:45 12/03/20 16:29 Lisinopril (Prinivil) 10 mg DAILY PO 12/03/20 09:00 12/30/20 08:26 Multivitamins/ Calcium (Thera-M Plus) 1 tab DAILY PO 12/03/20 09:00 12/30/20 08:26 Olanzapine (ZyPREXA ZYDIS) 2.5 mg PRN Q2HRS PRN PO PSYCHOSIS 12/02/20 17:00 12/30/20 14:44 Potassium Chloride (Klor-Con) 20 meq DAILYWBKFT PO 12/04/20 08:00 12/30/20 08:00 Sertraline HCl (Zoloft) 25 mg DAILY PO 12/04/20 09:00 12/06/20 21:00 DC 12/06/20 08:17 Sertraline HCl (Zoloft) 50 mg DAILY PO 12/07/20 09:00 12/30/20 08:26 Quetiapine Fumarate (SEROquel) 12.5 mg 0900 PO 12/09/20 09:00 12/10/20 16:51 DC 12/10/20 09:00 Quetiapine Fumarate (SEROquel) 12.5 mg ONCE ONCE PO 12/08/20 17:15 12/08/20 17:16 DC 12/08/20 17:15 Quetiapine Fumarate (SEROquel) 12.5 mg 1700 PO 12/09/20 18:00 12/30/20 17:00 Quetiapine Fumarate (SEROquel) 25 mg 0900 PO 12/11/20 09:00 12/30/20 08:26 Divalproex Sodium (Depakote Sprinkles) 125 mg BID PO 12/12/20 21:00 12/13/20 10:16 DC 12/13/20 08:35 Trazodone HCl (Desyrel) 50 mg PRN QHS PRN PO INSOMNIA 12/13/20 00:30 12/16/20 19:32 Divalproex Sodium (Depakote Sprinkles) 125 mg 0900,1700 PO 12/13/20 17:00 12/13/20 17:49 DC 12/13/20 16:35 Valproic Acid (Depakene) 125 mg 0900,1700 PO 12/14/20 09:00 12/17/20 15:35 DC 12/17/20 08:39 Valproic Acid (Depakene) 125 mg [id number] PO 12/17/20 21:00 12/23/20 16:57 DC 12/23/20 14:05 Valproic Acid (Depakene) 125 mg QID PO 12/23/20 17:00 12/30/20 19:48 Hydroxyzine HCl (Atarax) 10 mg PRN Q2HR PRN PO ITCHING 12/29/20 20:15 12/30/20 19:49 I have reviewed the current psychotropics carefully including drug interactions. Risk benefit ratio favors no change other than as noted in my dictated progress note. Diagnosis: Problems: (1) Major neurocognitive disorder (2) Impulse control disorder, unspecified (3) Anxiety disorder, unspecified (4) Dementia, vascular, with depression (5) Dementia, vascular, with delusions (6) Dementia in Alzheimer's disease with depression (7) Dementia in Alzheimer's disease with delusions (8) Dementia of the Alzheimer's type with early onset with behavioral disturbance EMILY CHARLES MD Dec 31, 2020 07:13
[2020-12-31] MEDS: POTASSIUM CHLORIDE 20 MEQ TABLET.ER. PO SCH (08:00)
[2020-12-31] MEDS: SERTRALINE 50 MG TABLET. PO SCH (08:24)
[2020-12-31] MEDS: QUEtiapine 25 MG TABLET. PO SCH ×2 (08:24→17:55)
[2020-12-31] MEDS: LISINOPRIL 10 MG TABLET PO SCH (08:25)
[2020-12-31] MEDS: MULTIVITAMIN with MINERAL TABLET. PO SCH (08:25)
[2020-12-31] MEDS: VALPROATE ACID 250 MG/5 ML ORAL SOLUTION PO SCH ×4 (08:25→21:00)
[2020-12-31 09:21] VITALS: BP 127/77
[2020-12-31 16:05] VITALS: BP 109/68
--- NOTE | 2020-12-31 22:06 | PDOC ---
Exam Note: Earle Note: Please also refer to the separate dictated note~for this date of service dictated separately.~Patient seen individually. Discussed the patient with Nursing staff reviewed the chart.~Reviewed interim history and current functioning. Reviewed vital signs,~Labs/ Radiology~and current medications noted below. Continue current treatment with the changes noted in the dictated addendum note Assessment: Vital Signs/I&O: Vital Signs Date Time Temp Pulse Resp B/P (MAP) Pulse Ox O2 Delivery O2 Flow Rate FiO2 12/31/20 16:05 96.8 86 18 109/68 (82) 97 12/26/20 05:59 Room Air I & O 12/30/20 12/30/20 12/31/20 15:00 23:00 07:00 Intake Total 600 ml 360 ml Balance 600 ml 360 ml Current Medications: Meds: Current Medications Medications (Trade) Dose Ordered Sig/Brianne Route PRN Reason Start Time Stop Time Status Last Admin Dose Admin Lorazepam (Ativan) 1 mg STK-MED ONCE .ROUTE 12/02/20 14:25 12/02/20 14:25 DC Lorazepam (Ativan) 1 mg 1X ONCE PO 12/02/20 14:30 12/02/20 14:36 DC 12/02/20 14:31 Potassium/ Phosphorus/Sodium (Phos-Nak) 1 pkt 1X ONCE PO 12/02/20 15:00 12/02/20 15:01 Cancel Potassium Bicarbonate (Potassium Effervescent Tablet) 20 meq STK-MED ONCE .ROUTE 12/02/20 14:56 12/02/20 14:57 DC Potassium Bicarbonate (Potassium Effervescent Tablet) 20 meq 1X ONCE PO 12/02/20 15:00 12/02/20 15:01 DC 12/02/20 15:00 Acetaminophen (Tylenol) 650 mg PRN Q6HRS PRN PO MILD PAIN / TEMP > 100.3'F 12/02/20 15:45 12/29/20 05:11 Multi-Ingredient Ointment (Analgesic [place]) 1 itz PRN QID PRN TP MUSCLE PAIN 12/02/20 15:45 Al Hydroxide/Mg Hydroxide (Mylanta Plus Xs) 15 ml PRN AFTMEALHC PRN PO DYSPEPSIA 12/02/20 15:45 Magnesium Hydroxide (Milk Of Magnesia) 2,400 mg PRN QHS PRN PO CONSTIPATION 12/02/20 15:45 12/03/20 16:29 Lisinopril (Prinivil) 10 mg DAILY PO 12/03/20 09:00 12/31/20 08:25 Multivitamins/ Calcium (Thera-M Plus) 1 tab DAILY PO 12/03/20 09:00 12/31/20 08:25 Olanzapine (ZyPREXA ZYDIS) 2.5 mg PRN Q2HRS PRN PO PSYCHOSIS 12/02/20 17:00 12/31/20 18:30 Potassium Chloride (Klor-Con) 20 meq DAILYWBKFT PO 12/04/20 08:00 12/31/20 08:00 Sertraline HCl (Zoloft) 25 mg DAILY PO 12/04/20 09:00 12/06/20 21:00 DC 12/06/20 08:17 Sertraline HCl (Zoloft) 50 mg DAILY PO 12/07/20 09:00 12/31/20 08:24 Quetiapine Fumarate (SEROquel) 12.5 mg 0900 PO 12/09/20 09:00 12/10/20 16:51 DC 12/10/20 09:00 Quetiapine Fumarate (SEROquel) 12.5 mg ONCE ONCE PO 12/08/20 17:15 12/08/20 17:16 DC 12/08/20 17:15 Quetiapine Fumarate (SEROquel) 12.5 mg 1700 PO 12/09/20 18:00 12/31/20 17:55 Quetiapine Fumarate (SEROquel) 25 mg 0900 PO 12/11/20 09:00 12/31/20 08:24 Divalproex Sodium (Depakote Sprinkles) 125 mg BID PO 12/12/20 21:00 12/13/20 10:16 DC 12/13/20 08:35 Trazodone HCl (Desyrel) 50 mg PRN QHS PRN PO INSOMNIA 12/13/20 00:30 12/16/20 19:32 Divalproex Sodium (Depakote Sprinkles) 125 mg 0900,1700 PO 12/13/20 17:00 12/13/20 17:49 DC 12/13/20 16:35 Valproic Acid (Depakene) 125 mg 0900,1700 PO 12/14/20 09:00 12/17/20 15:35 DC 12/17/20 08:39 Valproic Acid (Depakene) 125 mg [id number] PO 12/17/20 21:00 12/23/20 16:57 DC 12/23/20 14:05 Valproic Acid (Depakene) 125 mg QID PO 12/23/20 17:00 12/31/20 17:57 Hydroxyzine HCl (Atarax) 10 mg PRN Q2HR PRN PO ITCHING 12/29/20 20:15 12/30/20 19:49 I have reviewed the current psychotropics carefully including drug interactions. Risk benefit ratio favors no change other than as noted in my dictated progress note. Diagnosis: Problems: (1) Major neurocognitive disorder (2) Impulse control disorder, unspecified (3) Anxiety disorder, unspecified (4) Dementia, vascular, with depression (5) Dementia, vascular, with delusions (6) Dementia in Alzheimer's disease with depression (7) Dementia in Alzheimer's disease with delusions (8) Dementia of the Alzheimer's type with early onset with behavioral disturbance EMILY CHARLES MD Dec 31, 2020 22:06
[2021-01-01 06:25] VITALS: BP 112/68
--- NOTE | 2021-01-01 07:02 | PDOC ---
Exam Note: Earle Note: This note is a late entry for 12/31/2020 covers elements not covered in my initial note. Subjective: The patient was seen individually in the evening of 12/31/2020 with Rolan APPIAH, discussed and reviewed the chart. The patient slept 8 hours previous night. Overall the patient has done reasonably well all day till supper time. She was agitated with marked mood lability, paranoia was quite evident. Psychotropics were syringed. She was biting and hitting at one point. Review of Systems: Ambulation impaired. No CV, , pulmonary, eye system symptoms on review. Reliability poor. Mental Status Exam: The patient is oriented to herself. Insight and judgment, recent and remote memory, attention and concentration is poor consistent with her diagnoses. Laboratory Data: Reviewed. Impression: Major neurocognitive disorder Alzheimer vascular with delusion, depression, and behavioral disturbance. Anxiety disorder unspecified. Impulse control disorder unspecified. Plan: Continue current psychotropics. Assessment: Vital Signs/I&O: Vital Signs Date Time Temp Pulse Resp B/P (MAP) Pulse Ox O2 Delivery O2 Flow Rate FiO2 01/01/21 06:25 97.5 90 18 112/68 (83) 98 I & O 12/31/20 12/31/20 01/01/21 15:00 23:00 07:00 Intake Total 480 ml 120 ml Balance 480 ml 120 ml Current Medications: Meds: Current Medications Medications (Trade) Dose Ordered Sig/Brianne Route PRN Reason Start Time Stop Time Status Last Admin Dose Admin Lorazepam (Ativan) 1 mg STK-MED ONCE .ROUTE 12/02/20 14:25 12/02/20 14:25 DC Lorazepam (Ativan) 1 mg 1X ONCE PO 12/02/20 14:30 12/02/20 14:36 DC 12/02/20 14:31 Potassium/ Phosphorus/Sodium (Phos-Nak) 1 pkt 1X ONCE PO 12/02/20 15:00 12/02/20 15:01 Cancel Potassium Bicarbonate (Potassium Effervescent Tablet) 20 meq STK-MED ONCE .ROUTE 12/02/20 14:56 12/02/20 14:57 DC Potassium Bicarbonate (Potassium Effervescent Tablet) 20 meq 1X ONCE PO 12/02/20 15:00 12/02/20 15:01 DC 12/02/20 15:00 Acetaminophen (Tylenol) 650 mg PRN Q6HRS PRN PO MILD PAIN / TEMP > 100.3'F 12/02/20 15:45 12/29/20 05:11 Multi-Ingredient Ointment (Analgesic [place]) 1 itz PRN QID PRN TP MUSCLE PAIN 12/02/20 15:45 Al Hydroxide/Mg Hydroxide (Mylanta Plus Xs) 15 ml PRN AFTMEALHC PRN PO DYSPEPSIA 12/02/20 15:45 Magnesium Hydroxide (Milk Of Magnesia) 2,400 mg PRN QHS PRN PO CONSTIPATION 12/02/20 15:45 12/03/20 16:29 Lisinopril (Prinivil) 10 mg DAILY PO 12/03/20 09:00 12/31/20 08:25 Multivitamins/ Calcium (Thera-M Plus) 1 tab DAILY PO 12/03/20 09:00 12/31/20 08:25 Olanzapine (ZyPREXA ZYDIS) 2.5 mg PRN Q2HRS PRN PO PSYCHOSIS 12/02/20 17:00 12/31/20 18:30 Potassium Chloride (Klor-Con) 20 meq DAILYWBKFT PO 12/04/20 08:00 12/31/20 08:00 Sertraline HCl (Zoloft) 25 mg DAILY PO 12/04/20 09:00 12/06/20 21:00 DC 12/06/20 08:17 Sertraline HCl (Zoloft) 50 mg DAILY PO 12/07/20 09:00 12/31/20 08:24 Quetiapine Fumarate (SEROquel) 12.5 mg 0900 PO 12/09/20 09:00 12/10/20 16:51 DC 12/10/20 09:00 Quetiapine Fumarate (SEROquel) 12.5 mg ONCE ONCE PO 12/08/20 17:15 12/08/20 17:16 DC 12/08/20 17:15 Quetiapine Fumarate (SEROquel) 12.5 mg 1700 PO 12/09/20 18:00 12/31/20 17:55 Quetiapine Fumarate (SEROquel) 25 mg 0900 PO 12/11/20 09:00 12/31/20 08:24 Divalproex Sodium (Depakote Sprinkles) 125 mg BID PO 12/12/20 21:00 12/13/20 10:16 DC 12/13/20 08:35 Trazodone HCl (Desyrel) 50 mg PRN QHS PRN PO INSOMNIA 12/13/20 00:30 12/16/20 19:32 Divalproex Sodium (Depakote Sprinkles) 125 mg 0900,1700 PO 12/13/20 17:00 12/13/20 17:49 DC 12/13/20 16:35 Valproic Acid (Depakene) 125 mg 0900,1700 PO 12/14/20 09:00 12/17/20 15:35 DC 12/17/20 08:39 Valproic Acid (Depakene) 125 mg [id number] PO 12/17/20 21:00 12/23/20 16:57 DC 12/23/20 14:05 Valproic Acid (Depakene) 125 mg QID PO 12/23/20 17:00 12/31/20 17:57 Hydroxyzine HCl (Atarax) 10 mg PRN Q2HR PRN PO ITCHING 12/29/20 20:15 12/30/20 19:49 I have reviewed the current psychotropics carefully including drug interactions. Risk benefit ratio favors no change other than as noted in my dictated progress note. Diagnosis: Problems: (1) Major neurocognitive disorder (2) Impulse control disorder, unspecified (3) Anxiety disorder, unspecified (4) Dementia, vascular, with depression (5) Dementia, vascular, with delusions (6) Dementia in Alzheimer's disease with depression (7) Dementia in Alzheimer's disease with delusions (8) Dementia of the Alzheimer's type with early onset with behavioral disturbance EMILY CHARLES MD Jan 01, 2021 07:02
[2021-01-01] MEDS: POTASSIUM CHLORIDE 20 MEQ TABLET.ER. PO SCH (08:00)
[2021-01-01] MEDS: LISINOPRIL 10 MG TABLET PO SCH (08:31)
[2021-01-01] MEDS: VALPROATE ACID 250 MG/5 ML ORAL SOLUTION PO SCH ×4 (08:31→21:00)
[2021-01-01] MEDS: SERTRALINE 50 MG TABLET. PO SCH (08:32)
[2021-01-01] MEDS: MULTIVITAMIN with MINERAL TABLET. PO SCH (08:32)
[2021-01-01] MEDS: QUEtiapine 25 MG TABLET. PO SCH ×2 (08:47→17:00)
[2021-01-01 16:03] VITALS: BP 113/51
[2021-01-01] MEDS: hydrOXYzine HCL 10 MG TABLET PO PRN (16:21)
--- NOTE | 2021-01-01 22:17 | PDOC ---
Exam Note: Earle Note: Please also refer to the separate dictated note~for this date of service dictated separately.~Patient seen individually. Discussed the patient with Nursing staff reviewed the chart.~Reviewed interim history and current functioning. Reviewed vital signs,~Labs/ Radiology~and current medications noted below. Continue current treatment with the changes noted in the dictated addendum note Assessment: Vital Signs/I&O: Vital Signs Date Time Temp Pulse Resp B/P (MAP) Pulse Ox O2 Delivery O2 Flow Rate FiO2 01/01/21 16:03 97.4 91 18 113/51 (71) 94 I & O 12/31/20 12/31/20 01/01/21 15:00 23:00 07:00 Intake Total 480 ml 120 ml Balance 480 ml 120 ml Current Medications: Meds: Current Medications Medications (Trade) Dose Ordered Sig/Brianne Route PRN Reason Start Time Stop Time Status Last Admin Dose Admin Lorazepam (Ativan) 1 mg STK-MED ONCE .ROUTE 12/02/20 14:25 12/02/20 14:25 DC Lorazepam (Ativan) 1 mg 1X ONCE PO 12/02/20 14:30 12/02/20 14:36 DC 12/02/20 14:31 Potassium/ Phosphorus/Sodium (Phos-Nak) 1 pkt 1X ONCE PO 12/02/20 15:00 12/02/20 15:01 Cancel Potassium Bicarbonate (Potassium Effervescent Tablet) 20 meq STK-MED ONCE .ROUTE 12/02/20 14:56 12/02/20 14:57 DC Potassium Bicarbonate (Potassium Effervescent Tablet) 20 meq 1X ONCE PO 12/02/20 15:00 12/02/20 15:01 DC 12/02/20 15:00 Acetaminophen (Tylenol) 650 mg PRN Q6HRS PRN PO MILD PAIN / TEMP > 100.3'F 12/02/20 15:45 12/29/20 05:11 Multi-Ingredient Ointment (Analgesic [place]) 1 itz PRN QID PRN TP MUSCLE PAIN 12/02/20 15:45 Al Hydroxide/Mg Hydroxide (Mylanta Plus Xs) 15 ml PRN AFTMEALHC PRN PO DYSPEPSIA 12/02/20 15:45 Magnesium Hydroxide (Milk Of Magnesia) 2,400 mg PRN QHS PRN PO CONSTIPATION 12/02/20 15:45 12/03/20 16:29 Lisinopril (Prinivil) 10 mg DAILY PO 12/03/20 09:00 01/01/21 08:31 Multivitamins/ Calcium (Thera-M Plus) 1 tab DAILY PO 12/03/20 09:00 12/31/20 08:25 Olanzapine (ZyPREXA ZYDIS) 2.5 mg PRN Q2HRS PRN PO PSYCHOSIS 12/02/20 17:00 01/01/21 16:22 Potassium Chloride (Klor-Con) 20 meq DAILYWBKFT PO 12/04/20 08:00 12/31/20 08:00 Sertraline HCl (Zoloft) 25 mg DAILY PO 12/04/20 09:00 12/06/20 21:00 DC 12/06/20 08:17 Sertraline HCl (Zoloft) 50 mg DAILY PO 12/07/20 09:00 01/01/21 08:32 Quetiapine Fumarate (SEROquel) 12.5 mg 0900 PO 12/09/20 09:00 12/10/20 16:51 DC 12/10/20 09:00 Quetiapine Fumarate (SEROquel) 12.5 mg ONCE ONCE PO 12/08/20 17:15 12/08/20 17:16 DC 12/08/20 17:15 Quetiapine Fumarate (SEROquel) 12.5 mg 1700 PO 12/09/20 18:00 01/01/21 17:00 Quetiapine Fumarate (SEROquel) 25 mg 0900 PO 12/11/20 09:00 01/01/21 08:47 Divalproex Sodium (Depakote Sprinkles) 125 mg BID PO 12/12/20 21:00 12/13/20 10:16 DC 12/13/20 08:35 Trazodone HCl (Desyrel) 50 mg PRN QHS PRN PO INSOMNIA 12/13/20 00:30 12/16/20 19:32 Divalproex Sodium (Depakote Sprinkles) 125 mg 0900,1700 PO 12/13/20 17:00 12/13/20 17:49 DC 12/13/20 16:35 Valproic Acid (Depakene) 125 mg 0900,1700 PO 12/14/20 09:00 12/17/20 15:35 DC 12/17/20 08:39 Valproic Acid (Depakene) 125 mg [id number] PO 12/17/20 21:00 12/23/20 16:57 DC 12/23/20 14:05 Valproic Acid (Depakene) 125 mg QID PO 12/23/20 17:00 01/01/21 17:00 Hydroxyzine HCl (Atarax) 10 mg PRN Q2HR PRN PO ITCHING 12/29/20 20:15 01/01/21 16:21 I have reviewed the current psychotropics carefully including drug interactions. Risk benefit ratio favors no change other than as noted in my dictated progress note. Diagnosis: Problems: (1) Major neurocognitive disorder (2) Impulse control disorder, unspecified (3) Anxiety disorder, unspecified (4) Dementia, vascular, with depression (5) Dementia, vascular, with delusions (6) Dementia in Alzheimer's disease with depression (7) Dementia in Alzheimer's disease with delusions (8) Dementia of the Alzheimer's type with early onset with behavioral disturbance EMILY CHARLES MD Jan 01, 2021 22:17
[2021-01-02 06:31] VITALS: BP 109/62
[2021-01-02] MEDS: POTASSIUM CHLORIDE 20 MEQ TABLET.ER. PO SCH (08:00)
--- NOTE | 2021-01-02 08:16 | PDOC ---
Exam Note: Earle Note: This note is a late entry for 01/01/2021 covers elements not covered in my initial note. Subjective: The patient was seen individually in the evening of 01/01/2021 with Tiffany APPIAH, discussed and reviewed the chart. The patient slept 6 hours previous night. The patient has been impulsive, restless, somewhat intrusive and going into others rooms. She was given Depakene liquid with the straw which is pink colored and she was told it was candy and a straw and she happily took it. She is still confused, somewhat restless but at times more coherent. She seemed to respond when I mentioned her husbands name to her. Review of Systems: Ambulation impaired. No CV, , pulmonary, eye system s ymptoms on review. Reliability poor. Mental Status Exam: The patient is oriented to herself. Insight and judgment, recent and remote memory, attention and concentration is poor consistent with her diagnoses. Laboratory Data: Reviewed. Impression: Major neurocognitive disorder Alzheimer vascular with delusion, depression, and behavioral disturbance. Anxiety disorder unspecified. Impulse control disorder unspecified. Plan: Continue current psychotropics. Assessment: Vital Signs/I&O: Vital Signs Date Time Temp Pulse Resp B/P (MAP) Pulse Ox O2 Delivery O2 Flow Rate FiO2 01/02/21 06:31 97.5 72 20 109/62 (78) 96 Room Air I & O 01/01/21 01/01/21 01/02/21 14:59 22:59 06:59 Intake Total 960 ml 360 ml Balance 960 ml 360 ml Current Medications: Meds: Current Medications Medications (Trade) Dose Ordered Sig/Brianne Route PRN Reason Start Time Stop Time Status Last Admin Dose Admin Lorazepam (Ativan) 1 mg STK-MED ONCE .ROUTE 12/02/20 14:25 12/02/20 14:25 DC Lorazepam (Ativan) 1 mg 1X ONCE PO 12/02/20 14:30 12/02/20 14:36 DC 12/02/20 14:31 Potassium/ Phosphorus/Sodium (Phos-Nak) 1 pkt 1X ONCE PO 12/02/20 15:00 12/02/20 15:01 Cancel Potassium Bicarbonate (Potassium Effervescent Tablet) 20 meq STK-MED ONCE .ROUTE 12/02/20 14:56 12/02/20 14:57 DC Potassium Bicarbonate (Potassium Effervescent Tablet) 20 meq 1X ONCE PO 12/02/20 15:00 12/02/20 15:01 DC 12/02/20 15:00 Acetaminophen (Tylenol) 650 mg PRN Q6HRS PRN PO MILD PAIN / TEMP > 100.3'F 12/02/20 15:45 12/29/20 05:11 Multi-Ingredient Ointment (Analgesic [place]) 1 itz PRN QID PRN TP MUSCLE PAIN 12/02/20 15:45 Al Hydroxide/Mg Hydroxide (Mylanta Plus Xs) 15 ml PRN AFTMEALHC PRN PO DYSPEPSIA 12/02/20 15:45 Magnesium Hydroxide (Milk Of Magnesia) 2,400 mg PRN QHS PRN PO CONSTIPATION 12/02/20 15:45 12/03/20 16:29 Lisinopril (Prinivil) 10 mg DAILY PO 12/03/20 09:00 01/01/21 08:31 Multivitamins/ Calcium (Thera-M Plus) 1 tab DAILY PO 12/03/20 09:00 12/31/20 08:25 Olanzapine (ZyPREXA ZYDIS) 2.5 mg PRN Q2HRS PRN PO PSYCHOSIS 12/02/20 17:00 01/01/21 16:22 Potassium Chloride (Klor-Con) 20 meq DAILYWBKFT PO 12/04/20 08:00 12/31/20 08:00 Sertraline HCl (Zoloft) 25 mg DAILY PO 12/04/20 09:00 12/06/20 21:00 DC 12/06/20 08:17 Sertraline HCl (Zoloft) 50 mg DAILY PO 12/07/20 09:00 01/01/21 08:32 Quetiapine Fumarate (SEROquel) 12.5 mg 0900 PO 12/09/20 09:00 12/10/20 16:51 DC 12/10/20 09:00 Quetiapine Fumarate (SEROquel) 12.5 mg ONCE ONCE PO 12/08/20 17:15 12/08/20 17:16 DC 12/08/20 17:15 Quetiapine Fumarate (SEROquel) 12.5 mg 1700 PO 12/09/20 18:00 01/01/21 17:00 Quetiapine Fumarate (SEROquel) 25 mg 0900 PO 12/11/20 09:00 01/01/21 08:47 Divalproex Sodium (Depakote Sprinkles) 125 mg BID PO 12/12/20 21:00 12/13/20 10:16 DC 12/13/20 08:35 Trazodone HCl (Desyrel) 50 mg PRN QHS PRN PO INSOMNIA 12/13/20 00:30 12/16/20 19:32 Divalproex Sodium (Depakote Sprinkles) 125 mg 0900,1700 PO 12/13/20 17:00 12/13/20 17:49 DC 12/13/20 16:35 Valproic Acid (Depakene) 125 mg 0900,1700 PO 12/14/20 09:00 12/17/20 15:35 DC 12/17/20 08:39 Valproic Acid (Depakene) 125 mg [id number] PO 12/17/20 21:00 12/23/20 16:57 DC 12/23/20 14:05 Valproic Acid (Depakene) 125 mg QID PO 12/23/20 17:00 01/01/21 17:00 Hydroxyzine HCl (Atarax) 10 mg PRN Q2HR PRN PO ITCHING 12/29/20 20:15 01/01/21 16:21 I have reviewed the current psychotropics carefully including drug interactions. Risk benefit ratio favors no change other than as noted in my dictated progress note. Diagnosis: Problems: (1) Major neurocognitive disorder (2) Impulse control disorder, unspecified (3) Anxiety disorder, unspecified (4) Dementia, vascular, with depression (5) Dementia, vascular, with delusions (6) Dementia in Alzheimer's disease with depression (7) Dementia in Alzheimer's disease with delusions (8) Dementia of the Alzheimer's type with early onset with behavioral disturbance EMILY CHARLES MD Jan 02, 2021 08:16
[2021-01-02] MEDS: QUEtiapine 25 MG TABLET. PO SCH ×3 (08:35→17:00)
[2021-01-02] MEDS: LISINOPRIL 10 MG TABLET PO SCH (08:35)
[2021-01-02] MEDS: SERTRALINE 50 MG TABLET. PO SCH (08:35)
[2021-01-02] MEDS: VALPROATE ACID 250 MG/5 ML ORAL SOLUTION PO SCH ×4 (08:35→20:31)
[2021-01-02] MEDS: MULTIVITAMIN with MINERAL TABLET. PO SCH (08:35)
[2021-01-02 15:54] VITALS: BP 105/70
--- NOTE | 2021-01-02 17:05 | TX PLAN ---
Interdisciplinary Tx Plan Admission Information Dec 02, 2020 at 15:25 Legal Status (on Admission): Voluntary DPOA/Guardian Name: Aron Razo Contact Other Contact Name: [facility] Other Contact Verified Code Status: DNR Allergies: Coded Allergies: No Known Drug Allergies (Unverified , 12/02/20) Diagnoses Primary Diagnosis: Major Neurocognitive D/O, Vascular Alzheimers with delusions and depression Reasons for Admission: Aggressive, Sig. Change Sleep, Combative, Confusion/Disoriented, Poor impulse control, Other Problem in Patient's Words: She has declined pretty quickly in the last 3 months. Additional Admission Comments: According to the intake, pt was biting, hitting staff at LT, throwing things, agitated, restless, wandering, attempts to elope, poor sleep, poor intake, throwing cups of water on LTC staff, attempted to elope out of the back door of [facility] ED during medical clearance. Problems Active Problems: restless wandering increased confusion Inactive Problems: medication compliance Pt Strengths/Limitations Ability for [place]: Poor Cognitive Functioning/Ability: Poor Communication Skills/Ability: Poor Financial Resources: Good Insight/Judgement: Poor Intellectual Ability: Poor Physical Health: Fair Social Skills: Fair Stability in Family: Good Stability in School/Work: Poor Verbal Skills: Poor Discharge Criteria Discharge Criteria: No need for close observ., Adequate arrangements @DC, Improved behavior, Improved mood/thought Preliminary Discharge Plan Preliminary DC Plan: Current Living Arrange. Initial D/C Plan Unknown at this time Identified Discharge Needs: Pt may bring pt home; unknown at this time. Currently Utilized Resources Currently Utilized Resources/P: Primary Care Physician Identified Problems/Hx/Goals Objectives/Short-Term Goals Short Term Goals: Dec. Aggression, Dec. Outbursts, Medication Stabilization, Monitor Med Effects, Promote Coping Skill Short Term Goals in Patient's: N/A Interventions/Frequency Staff Interventions/Frequency&: Psychiatrist to assess pt at least 3x per week for medication management. Social [place] to assess pt at least 2x per week to identify barriers to care and discharge planning. Nursing to assess medication effects, behavior modification and complete 15 minute checks. 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 Education: Pt did graduate high school (12th grade); attended [employer] in [place] with her B.A. in Somali degree. 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 Pt continues to be restless but is not aggressive or disruptive to her peers. Pt speaks in word salad and is more compliant with taking her medications crushed and orally syringed. In attempts to give pt medication crushed in pudding or applesauce, pt will spit them out and needs coaxing to swallow; whereas, with the oral syringe, she is more accepting and willing. Pt has minimal group participation if she attends group for significant periods of time, as pt tends to wander in and out of the activities. Pt VPA is 34 so pt Depakote will be 250mg BID and 125mg daily. Pt has referrals send with a few denials and one pending updated notes. DANIELA for the middle to the end of next week. HEDY BARRON Jan 02, 2021 17:04
--- NOTE | 2021-01-02 22:13 | PDOC ---
Exam Note: Earle Note: Please also refer to the separate dictated note~for this date of service dictated separately.~Patient seen individually. Discussed the patient with Nursing staff reviewed the chart.~Reviewed interim history and current functioning. Reviewed vital signs,~Labs/ Radiology~and current medications noted below. Continue current treatment with the changes noted in the dictated addendum note Assessment: Vital Signs/I&O: Vital Signs Date Time Temp Pulse Resp B/P (MAP) Pulse Ox O2 Delivery O2 Flow Rate FiO2 01/02/21 15:54 97.2 99 18 105/70 (82) 95 01/02/21 06:31 Room Air I & O 01/01/21 01/01/21 01/02/21 14:59 22:59 06:59 Intake Total 960 ml 360 ml Balance 960 ml 360 ml Current Medications: Meds: Current Medications Medications (Trade) Dose Ordered Sig/Brianne Route PRN Reason Start Time Stop Time Status Last Admin Dose Admin Lorazepam (Ativan) 1 mg STK-MED ONCE .ROUTE 12/02/20 14:25 12/02/20 14:25 DC Lorazepam (Ativan) 1 mg 1X ONCE PO 12/02/20 14:30 12/02/20 14:36 DC 12/02/20 14:31 Potassium/ Phosphorus/Sodium (Phos-Nak) 1 pkt 1X ONCE PO 12/02/20 15:00 12/02/20 15:01 Cancel Potassium Bicarbonate (Potassium Effervescent Tablet) 20 meq STK-MED ONCE .ROUTE 12/02/20 14:56 12/02/20 14:57 DC Potassium Bicarbonate (Potassium Effervescent Tablet) 20 meq 1X ONCE PO 12/02/20 15:00 12/02/20 15:01 DC 12/02/20 15:00 Acetaminophen (Tylenol) 650 mg PRN Q6HRS PRN PO MILD PAIN / TEMP > 100.3'F 12/02/20 15:45 12/29/20 05:11 Multi-Ingredient Ointment (Analgesic [place]) 1 itz PRN QID PRN TP MUSCLE PAIN 12/02/20 15:45 Al Hydroxide/Mg Hydroxide (Mylanta Plus Xs) 15 ml PRN AFTMEALHC PRN PO DYSPEPSIA 12/02/20 15:45 Magnesium Hydroxide (Milk Of Magnesia) 2,400 mg PRN QHS PRN PO CONSTIPATION 12/02/20 15:45 12/03/20 16:29 Lisinopril (Prinivil) 10 mg DAILY PO 12/03/20 09:00 01/02/21 08:35 Multivitamins/ Calcium (Thera-M Plus) 1 tab DAILY PO 12/03/20 09:00 01/02/21 08:35 Olanzapine (ZyPREXA ZYDIS) 2.5 mg PRN Q2HRS PRN PO PSYCHOSIS 12/02/20 17:00 01/01/21 16:22 Potassium Chloride (Klor-Con) 20 meq DAILYWBKFT PO 12/04/20 08:00 01/02/21 08:00 Sertraline HCl (Zoloft) 25 mg DAILY PO 12/04/20 09:00 12/06/20 21:00 DC 12/06/20 08:17 Sertraline HCl (Zoloft) 50 mg DAILY PO 12/07/20 09:00 01/02/21 08:35 Quetiapine Fumarate (SEROquel) 12.5 mg 0900 PO 12/09/20 09:00 12/10/20 16:51 DC 12/10/20 09:00 Quetiapine Fumarate (SEROquel) 12.5 mg ONCE ONCE PO 12/08/20 17:15 12/08/20 17:16 DC 12/08/20 17:15 Quetiapine Fumarate (SEROquel) 12.5 mg 1700 PO 12/09/20 18:00 01/02/21 11:54 DC 01/01/21 17:00 Quetiapine Fumarate (SEROquel) 25 mg 0900 PO 12/11/20 09:00 01/02/21 08:35 Divalproex Sodium (Depakote Sprinkles) 125 mg BID PO 12/12/20 21:00 12/13/20 10:16 DC 12/13/20 08:35 Trazodone HCl (Desyrel) 50 mg PRN QHS PRN PO INSOMNIA 12/13/20 00:30 12/16/20 19:32 Divalproex Sodium (Depakote Sprinkles) 125 mg 0900,1700 PO 12/13/20 17:00 12/13/20 17:49 DC 12/13/20 16:35 Valproic Acid (Depakene) 125 mg 0900,1700 PO 12/14/20 09:00 12/17/20 15:35 DC 12/17/20 08:39 Valproic Acid (Depakene) 125 mg [id number] PO 12/17/20 21:00 12/23/20 16:57 DC 12/23/20 14:05 Valproic Acid (Depakene) 125 mg QID PO 12/23/20 17:00 01/02/21 11:54 DC 01/02/21 08:35 Hydroxyzine HCl (Atarax) 10 mg PRN Q2HR PRN PO ITCHING 12/29/20 20:15 01/01/21 16:21 Quetiapine Fumarate (SEROquel) 25 mg 1700 PO 01/02/21 17:00 01/02/21 17:00 Valproic Acid (Depakene) 125 mg 1300,1700 PO 01/02/21 13:00 01/02/21 17:00 Quetiapine Fumarate (SEROquel) 12.5 mg 1200 PO 01/02/21 12:00 01/02/21 12:00 Valproic Acid (Depakene) 250 mg 0900,2100 PO 01/02/21 21:00 01/02/21 20:31 Current Medications Medications (Trade) Dose Ordered Sig/Brianne Route PRN Reason Start Time Stop Time Status Last Admin Dose Admin Quetiapine Fumarate (SEROquel) 25 mg 1700 PO 01/02/21 17:00 01/02/21 17:00 Valproic Acid (Depakene) 125 mg 1300,1700 PO 01/02/21 13:00 01/02/21 17:00 Quetiapine Fumarate (SEROquel) 12.5 mg 1200 PO 01/02/21 12:00 01/02/21 12:00 Valproic Acid (Depakene) 250 mg 0900,2100 PO 01/02/21 21:00 01/02/21 20:31 I have reviewed the current psychotropics carefully including drug interactions. Risk benefit ratio favors no change other than as noted in my dictated progress note. Diagnosis: Problems: (1) Major neurocognitive disorder (2) Impulse control disorder, unspecified (3) Anxiety disorder, unspecified (4) Dementia, vascular, with depression (5) Dementia, vascular, with delusions (6) Dementia in Alzheimer's disease with depression (7) Dementia in Alzheimer's disease with delusions (8) Dementia of the Alzheimer's type with early onset with behavioral disturbance EMILY CHARLES MD Jan 02, 2021 22:13
[2021-01-03 06:27] VITALS: BP 98/62
[2021-01-03] MEDS: POTASSIUM CHLORIDE 20 MEQ TABLET.ER. PO SCH (08:00)
[2021-01-03] MEDS: SERTRALINE 50 MG TABLET. PO SCH (09:00)
[2021-01-03] MEDS: MULTIVITAMIN with MINERAL TABLET. PO SCH (09:00)
[2021-01-03] MEDS: QUEtiapine 25 MG TABLET. PO SCH ×3 (09:00→17:13)
[2021-01-03] MEDS: LISINOPRIL 10 MG TABLET PO SCH (09:00)
[2021-01-03] MEDS: VALPROATE ACID 250 MG/5 ML ORAL SOLUTION PO SCH ×4 (09:00→20:35)
[2021-01-03 16:03] VITALS: BP 109/67
--- NOTE | 2021-01-03 22:08 | PDOC ---
Exam Note: Earle Note: Please also refer to the separate dictated note~for this date of service dictated separately.~Patient seen individually. Discussed the patient with Nursing staff reviewed the chart.~Reviewed interim history and current functioning. Reviewed vital signs,~Labs/ Radiology~and current medications noted below. Continue current treatment with the changes noted in the dictated addendum note Assessment: Vital Signs/I&O: Vital Signs Date Time Temp Pulse Resp B/P (MAP) Pulse Ox O2 Delivery O2 Flow Rate FiO2 01/03/21 16:03 98.0 78 18 109/67 (81) 96 01/02/21 06:31 Room Air I & O 01/02/21 01/02/21 01/03/21 15:00 23:00 07:00 Intake Total 240 ml 360 ml Balance 240 ml 360 ml Current Medications: Meds: Current Medications Medications (Trade) Dose Ordered Sig/Brianne Route PRN Reason Start Time Stop Time Status Last Admin Dose Admin Lorazepam (Ativan) 1 mg STK-MED ONCE .ROUTE 12/02/20 14:25 12/02/20 14:25 DC Lorazepam (Ativan) 1 mg 1X ONCE PO 12/02/20 14:30 12/02/20 14:36 DC 12/02/20 14:31 Potassium/ Phosphorus/Sodium (Phos-Nak) 1 pkt 1X ONCE PO 12/02/20 15:00 12/02/20 15:01 Cancel Potassium Bicarbonate (Potassium Effervescent Tablet) 20 meq STK-MED ONCE .ROUTE 12/02/20 14:56 12/02/20 14:57 DC Potassium Bicarbonate (Potassium Effervescent Tablet) 20 meq 1X ONCE PO 12/02/20 15:00 12/02/20 15:01 DC 12/02/20 15:00 Acetaminophen (Tylenol) 650 mg PRN Q6HRS PRN PO MILD PAIN / TEMP > 100.3'F 12/02/20 15:45 12/29/20 05:11 Multi-Ingredient Ointment (Analgesic [place]) 1 itz PRN QID PRN TP MUSCLE PAIN 12/02/20 15:45 Al Hydroxide/Mg Hydroxide (Mylanta Plus Xs) 15 ml PRN AFTMEALHC PRN PO DYSPEPSIA 12/02/20 15:45 Magnesium Hydroxide (Milk Of Magnesia) 2,400 mg PRN QHS PRN PO CONSTIPATION 12/02/20 15:45 12/03/20 16:29 Lisinopril (Prinivil) 10 mg DAILY PO 12/03/20 09:00 01/02/21 08:35 Multivitamins/ Calcium (Thera-M Plus) 1 tab DAILY PO 12/03/20 09:00 01/02/21 08:35 Olanzapine (ZyPREXA ZYDIS) 2.5 mg PRN Q2HRS PRN PO PSYCHOSIS 12/02/20 17:00 01/01/21 16:22 Potassium Chloride (Klor-Con) 20 meq DAILYWBKFT PO 12/04/20 08:00 01/03/21 08:00 Sertraline HCl (Zoloft) 25 mg DAILY PO 12/04/20 09:00 12/06/20 21:00 DC 12/06/20 08:17 Sertraline HCl (Zoloft) 50 mg DAILY PO 12/07/20 09:00 01/03/21 09:00 Quetiapine Fumarate (SEROquel) 12.5 mg 0900 PO 12/09/20 09:00 12/10/20 16:51 DC 12/10/20 09:00 Quetiapine Fumarate (SEROquel) 12.5 mg ONCE ONCE PO 12/08/20 17:15 12/08/20 17:16 DC 12/08/20 17:15 Quetiapine Fumarate (SEROquel) 12.5 mg 1700 PO 12/09/20 18:00 01/02/21 11:54 DC 01/01/21 17:00 Quetiapine Fumarate (SEROquel) 25 mg 0900 PO 12/11/20 09:00 01/03/21 09:00 Divalproex Sodium (Depakote Sprinkles) 125 mg BID PO 12/12/20 21:00 12/13/20 10:16 DC 12/13/20 08:35 Trazodone HCl (Desyrel) 50 mg PRN QHS PRN PO INSOMNIA 12/13/20 00:30 12/16/20 19:32 Divalproex Sodium (Depakote Sprinkles) 125 mg 0900,1700 PO 12/13/20 17:00 12/13/20 17:49 DC 12/13/20 16:35 Valproic Acid (Depakene) 125 mg 0900,1700 PO 12/14/20 09:00 12/17/20 15:35 DC 12/17/20 08:39 Valproic Acid (Depakene) 125 mg [id number] PO 12/17/20 21:00 12/23/20 16:57 DC 12/23/20 14:05 Valproic Acid (Depakene) 125 mg QID PO 12/23/20 17:00 01/02/21 11:54 DC 01/02/21 08:35 Hydroxyzine HCl (Atarax) 10 mg PRN Q2HR PRN PO ITCHING 12/29/20 20:15 01/01/21 16:21 Quetiapine Fumarate (SEROquel) 25 mg 1700 PO 01/02/21 17:00 01/03/21 17:13 Valproic Acid (Depakene) 125 mg 1300,1700 PO 01/02/21 13:00 01/03/21 17:13 Quetiapine Fumarate (SEROquel) 12.5 mg 1200 PO 01/02/21 12:00 01/03/21 12:26 Valproic Acid (Depakene) 250 mg 0900,2100 PO 01/02/21 21:00 01/03/21 20:35 I have reviewed the current psychotropics carefully including drug interactions. Risk benefit ratio favors no change other than as noted in my dictated progress note. 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
[2021-01-04 05:39] VITALS: BP 117/76
[2021-01-04] MEDS: QUEtiapine 25 MG TABLET. PO SCH ×3 (09:04→16:32)
[2021-01-04] MEDS: MULTIVITAMIN with MINERAL TABLET. PO SCH (09:04)
[2021-01-04] MEDS: SERTRALINE 50 MG TABLET. PO SCH (09:04)
[2021-01-04] MEDS: POTASSIUM CHLORIDE 20 MEQ TABLET.ER. PO SCH (09:04)
[2021-01-04] MEDS: VALPROATE ACID 250 MG/5 ML ORAL SOLUTION PO SCH ×4 (09:05→19:53)
[2021-01-04] MEDS: LISINOPRIL 10 MG TABLET PO SCH (09:05)
--- NOTE | 2021-01-04 09:09 | PDOC ---
Exam Note: Earle Note: This note is a late entry for 01/02/2021 covers elements not covered in my initial note. Subjective: The patient was seen individually in the morning of 01/02/2021 for a treatment team meeting with Maryana Rice, Cathy Hargrove (social media strategist), Elizabeth, activity therapy and Tiffany RN, discussed and reviewed the chart. Discussed her progress, current psychotropics, reviewed drug interactions, risk-benefit ratio. The patient slept 7-1/4 hours previous night. The patient is disorganized, wandering, attended 4 groups in the past week and does attend the dance group as well. Family is trying to get her into a nursing facility but there are concerns about wanting her little more stable for her agitation. She is pleasant, verbal, interactive but confused, disorganized. Review of Systems: Ambulation impaired. No CV, , pulmonary, eye system symptoms on review. Reliability poor. Mental Status Exam: The patient is oriented to herself. Insight and judgment, recent and remote memory, attention and concentration is poor consistent with her diagnoses. Laboratory Data: Reviewed. Impression: Major neurocognitive disorder Alzheimer vascular with delusion, depression, and behavioral disturbance. Anxiety disorder unspecified. Impulse control disorder unspecified. Plan: The patient is currently on Depakote 125 mg 4 times a day. We will increase it to 250 mg twice a day, 125 mg twice a day. Check CBC, CMP, valproic acid level in 3 days and increase the 1700 hours Seroquel to 25 mg a day. Continue rest unchanged. Assessment: Vital Signs/I&O: Vital Signs Date Time Temp Pulse Resp B/P (MAP) Pulse Ox O2 Delivery O2 Flow Rate FiO2 01/04/21 05:39 96.7 81 20 117/76 (90) 99 Room Air I & O 01/03/21 01/03/21 01/04/21 15:00 23:00 07:00 Intake Total 720 ml 120 ml 240 ml Balance 720 ml 120 ml 240 ml Current Medications: Meds: Current Medications Medications (Trade) Dose Ordered Sig/Brianne Route PRN Reason Start Time Stop Time Status Last Admin Dose Admin Lorazepam (Ativan) 1 mg STK-MED ONCE .ROUTE 12/02/20 14:25 12/02/20 14:25 DC Lorazepam (Ativan) 1 mg 1X ONCE PO 12/02/20 14:30 12/02/20 14:36 DC 12/02/20 14:31 Potassium/ Phosphorus/Sodium (Phos-Nak) 1 pkt 1X ONCE PO 12/02/20 15:00 12/02/20 15:01 Cancel Potassium Bicarbonate (Potassium Effervescent Tablet) 20 meq STK-MED ONCE .ROUTE 12/02/20 14:56 12/02/20 14:57 DC Potassium Bicarbonate (Potassium Effervescent Tablet) 20 meq 1X ONCE PO 12/02/20 15:00 12/02/20 15:01 DC 12/02/20 15:00 Acetaminophen (Tylenol) 650 mg PRN Q6HRS PRN PO MILD PAIN / TEMP > 100.3'F 12/02/20 15:45 12/29/20 05:11 Multi-Ingredient Ointment (Analgesic [place]) 1 itz PRN QID PRN TP MUSCLE PAIN 12/02/20 15:45 Al Hydroxide/Mg Hydroxide (Mylanta Plus Xs) 15 ml PRN AFTMEALHC PRN PO DYSPEPSIA 12/02/20 15:45 Magnesium Hydroxide (Milk Of Magnesia) 2,400 mg PRN QHS PRN PO CONSTIPATION 12/02/20 15:45 12/03/20 16:29 Lisinopril (Prinivil) 10 mg DAILY PO 12/03/20 09:00 01/02/21 08:35 Multivitamins/ Calcium (Thera-M Plus) 1 tab DAILY PO 12/03/20 09:00 01/02/21 08:35 Olanzapine (ZyPREXA ZYDIS) 2.5 mg PRN Q2HRS PRN PO PSYCHOSIS 12/02/20 17:00 01/01/21 16:22 Potassium Chloride (Klor-Con) 20 meq DAILYWBKFT PO 12/04/20 08:00 01/03/21 08:00 Sertraline HCl (Zoloft) 25 mg DAILY PO 12/04/20 09:00 12/06/20 21:00 DC 12/06/20 08:17 Sertraline HCl (Zoloft) 50 mg DAILY PO 12/07/20 09:00 01/03/21 09:00 Quetiapine Fumarate (SEROquel) 12.5 mg 0900 PO 12/09/20 09:00 12/10/20 16:51 DC 12/10/20 09:00 Quetiapine Fumarate (SEROquel) 12.5 mg ONCE ONCE PO 12/08/20 17:15 12/08/20 17:16 DC 12/08/20 17:15 Quetiapine Fumarate (SEROquel) 12.5 mg 1700 PO 12/09/20 18:00 01/02/21 11:54 DC 01/01/21 17:00 Quetiapine Fumarate (SEROquel) 25 mg 0900 PO 12/11/20 09:00 01/03/21 09:00 Divalproex Sodium (Depakote Sprinkles) 125 mg BID PO 12/12/20 21:00 12/13/20 10:16 DC 12/13/20 08:35 Trazodone HCl (Desyrel) 50 mg PRN QHS PRN PO INSOMNIA 12/13/20 00:30 12/16/20 19:32 Divalproex Sodium (Depakote Sprinkles) 125 mg 0900,1700 PO 12/13/20 17:00 12/13/20 17:49 DC 12/13/20 16:35 Valproic Acid (Depakene) 125 mg 0900,1700 PO 12/14/20 09:00 12/17/20 15:35 DC 12/17/20 08:39 Valproic Acid (Depakene) 125 mg [id number] PO 12/17/20 21:00 12/23/20 16:57 DC 12/23/20 14:05 Valproic Acid (Depakene) 125 mg QID PO 12/23/20 17:00 01/02/21 11:54 DC 01/02/21 08:35 Hydroxyzine HCl (Atarax) 10 mg PRN Q2HR PRN PO ITCHING 12/29/20 20:15 01/01/21 16:21 Quetiapine Fumarate (SEROquel) 25 mg 1700 PO 01/02/21 17:00 01/03/21 17:13 Valproic Acid (Depakene) 125 mg 1300,1700 PO 01/02/21 13:00 01/03/21 17:13 Quetiapine Fumarate (SEROquel) 12.5 mg 1200 PO 01/02/21 12:00 01/03/21 12:26 Valproic Acid (Depakene) 250 mg 0900,2100 PO 01/02/21 21:00 01/03/21 20:35 I have reviewed the current psychotropics carefully including drug interactions. Risk benefit ratio favors no change other than as noted in my dictated progress note. 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
[2021-01-04 16:21] VITALS: BP 98/50
--- NOTE | 2021-01-04 22:07 | PDOC ---
Exam Note: Earle Note: Please also refer to the separate dictated note~for this date of service dictated separately.~Patient seen individually. Discussed the patient with Nursing staff reviewed the chart.~Reviewed interim history and current functioning. Reviewed vital signs,~Labs/ Radiology~and current medications noted below. Continue current treatment with the changes noted in the dictated addendum note Assessment: Vital Signs/I&O: Vital Signs Date Time Temp Pulse Resp B/P (MAP) Pulse Ox O2 Delivery O2 Flow Rate FiO2 01/04/21 16:21 97.4 85 16 98/50 (66) 96 01/04/21 05:39 Room Air I & O 01/03/21 01/03/21 01/04/21 15:00 23:00 07:00 Intake Total 720 ml 120 ml 240 ml Balance 720 ml 120 ml 240 ml Current Medications: Meds: Current Medications Medications (Trade) Dose Ordered Sig/Brianne Route PRN Reason Start Time Stop Time Status Last Admin Dose Admin Lorazepam (Ativan) 1 mg STK-MED ONCE .ROUTE 12/02/20 14:25 12/02/20 14:25 DC Lorazepam (Ativan) 1 mg 1X ONCE PO 12/02/20 14:30 12/02/20 14:36 DC 12/02/20 14:31 Potassium/ Phosphorus/Sodium (Phos-Nak) 1 pkt 1X ONCE PO 12/02/20 15:00 12/02/20 15:01 Cancel Potassium Bicarbonate (Potassium Effervescent Tablet) 20 meq STK-MED ONCE .ROUTE 12/02/20 14:56 12/02/20 14:57 DC Potassium Bicarbonate (Potassium Effervescent Tablet) 20 meq 1X ONCE PO 12/02/20 15:00 12/02/20 15:01 DC 12/02/20 15:00 Acetaminophen (Tylenol) 650 mg PRN Q6HRS PRN PO MILD PAIN / TEMP > 100.3'F 12/02/20 15:45 12/29/20 05:11 Multi-Ingredient Ointment (Analgesic [place]) 1 itz PRN QID PRN TP MUSCLE PAIN 12/02/20 15:45 Al Hydroxide/Mg Hydroxide (Mylanta Plus Xs) 15 ml PRN AFTMEALHC PRN PO DYSPEPSIA 12/02/20 15:45 Magnesium Hydroxide (Milk Of Magnesia) 2,400 mg PRN QHS PRN PO CONSTIPATION 12/02/20 15:45 12/03/20 16:29 Lisinopril (Prinivil) 10 mg DAILY PO 12/03/20 09:00 01/04/21 09:05 Multivitamins/ Calcium (Thera-M Plus) 1 tab DAILY PO 12/03/20 09:00 01/04/21 09:04 Olanzapine (ZyPREXA ZYDIS) 2.5 mg PRN Q2HRS PRN PO PSYCHOSIS 12/02/20 17:00 01/01/21 16:22 Potassium Chloride (Klor-Con) 20 meq DAILYWBKFT PO 12/04/20 08:00 01/04/21 09:04 Sertraline HCl (Zoloft) 25 mg DAILY PO 12/04/20 09:00 12/06/20 21:00 DC 12/06/20 08:17 Sertraline HCl (Zoloft) 50 mg DAILY PO 12/07/20 09:00 01/04/21 09:04 Quetiapine Fumarate (SEROquel) 12.5 mg 0900 PO 12/09/20 09:00 12/10/20 16:51 DC 12/10/20 09:00 Quetiapine Fumarate (SEROquel) 12.5 mg ONCE ONCE PO 12/08/20 17:15 12/08/20 17:16 DC 12/08/20 17:15 Quetiapine Fumarate (SEROquel) 12.5 mg 1700 PO 12/09/20 18:00 01/02/21 11:54 DC 01/01/21 17:00 Quetiapine Fumarate (SEROquel) 25 mg 0900 PO 12/11/20 09:00 01/04/21 09:04 Divalproex Sodium (Depakote Sprinkles) 125 mg BID PO 12/12/20 21:00 12/13/20 10:16 DC 12/13/20 08:35 Trazodone HCl (Desyrel) 50 mg PRN QHS PRN PO INSOMNIA 12/13/20 00:30 12/16/20 19:32 Divalproex Sodium (Depakote Sprinkles) 125 mg 0900,1700 PO 12/13/20 17:00 12/13/20 17:49 DC 12/13/20 16:35 Valproic Acid (Depakene) 125 mg 0900,1700 PO 12/14/20 09:00 12/17/20 15:35 DC 12/17/20 08:39 Valproic Acid (Depakene) 125 mg [id number] PO 12/17/20 21:00 12/23/20 16:57 DC 12/23/20 14:05 Valproic Acid (Depakene) 125 mg QID PO 12/23/20 17:00 01/02/21 11:54 DC 01/02/21 08:35 Hydroxyzine HCl (Atarax) 10 mg PRN Q2HR PRN PO ITCHING 12/29/20 20:15 01/01/21 16:21 Quetiapine Fumarate (SEROquel) 25 mg 1700 PO 01/02/21 17:00 01/04/21 16:32 Valproic Acid (Depakene) 125 mg 1300,1700 PO 01/02/21 13:00 01/04/21 16:30 Quetiapine Fumarate (SEROquel) 12.5 mg 1200 PO 01/02/21 12:00 01/04/21 12:39 Valproic Acid (Depakene) 250 mg 0900,2100 PO 01/02/21 21:00 01/04/21 19:53 I have reviewed the current psychotropics carefully including drug interactions. Risk benefit ratio favors no change other than as noted in my dictated progress note. Diagnosis: Problems: (1) Major neurocognitive disorder (2) Impulse control disorder, unspecified (3) Anxiety disorder, unspecified (4) Dementia, vascular, with depression (5) Dementia, vascular, with delusions (6) Dementia in Alzheimer's disease with depression (7) Dementia in Alzheimer's disease with delusions (8) Dementia of the Alzheimer's type with early onset with behavioral disturbance EMILY CHARLES MD Jan 04, 2021 22:07
[2021-01-05 05:33] VITALS: BP 126/70
[2021-01-05] MEDS: POTASSIUM CHLORIDE 20 MEQ TABLET.ER. PO SCH (08:25)
[2021-01-05] MEDS: SERTRALINE 50 MG TABLET. PO SCH (08:25)
[2021-01-05] MEDS: LISINOPRIL 10 MG TABLET PO SCH (08:25)
[2021-01-05] MEDS: QUEtiapine 25 MG TABLET. PO SCH ×3 (08:25→17:00)
[2021-01-05] MEDS: VALPROATE ACID 250 MG/5 ML ORAL SOLUTION PO SCH ×4 (08:25→20:06)
[2021-01-05] MEDS: MULTIVITAMIN with MINERAL TABLET. PO SCH (08:25)
--- NOTE | 2021-01-05 09:39 | PDOC ---
Exam Note: Earle Note: This note is a late entry for 01/03/2021 covers elements not covered in my initial note. Subjective: The patient was seen individually in the evening of 01/03/2021 with Chuck APPIAH, discussed and reviewed the chart. The patient slept 7-1/4 hours previous night. Overall the patient is less agitated and aggressive, still wandering, oriented just to herself. She takes the Depakene when the nurses refer to it as pink candy. She takes it through the straw while she is having her meals. Review of Systems: Ambulation impaired. No CV, , pulmonary, eye system symp toms on review. Reliability poor. Mental Status Exam: The patient is oriented to herself. I met with her in the dayroom. Insight and judgment, recent and remote memory, attention and concentration is poor consistent with her diagnoses. Laboratory Data: Reviewed. Impression: Major neurocognitive disorder Alzheimer vascular with delusion, depression, and behavioral disturbance. Anxiety disorder unspecified. Impulse control disorder unspecified. Plan: Overall the patient is doing better. We have adjusted Depakote and Seroquel has been increased as well. If behavioral dyscontrol persists, we will consider increasing Depakene to reach therapeutic level. Assessment: Vital Signs/I&O: Vital Signs Date Time Temp Pulse Resp B/P (MAP) Pulse Ox O2 Delivery O2 Flow Rate FiO2 01/05/21 08:25 69 126/70 01/05/21 05:33 97.3 18 95 01/04/21 05:39 Room Air I & O 01/04/21 01/04/21 01/05/21 15:00 23:00 07:00 Intake Total 600 ml 240 ml Balance 600 ml 240 ml Current Medications: Meds: Current Medications Medications (Trade) Dose Ordered Sig/Brianne Route PRN Reason Start Time Stop Time Status Last Admin Dose Admin Lorazepam (Ativan) 1 mg STK-MED ONCE .ROUTE 12/02/20 14:25 12/02/20 14:25 DC Lorazepam (Ativan) 1 mg 1X ONCE PO 12/02/20 14:30 12/02/20 14:36 DC 12/02/20 14:31 Potassium/ Phosphorus/Sodium (Phos-Nak) 1 pkt 1X ONCE PO 12/02/20 15:00 12/02/20 15:01 Cancel Potassium Bicarbonate (Potassium Effervescent Tablet) 20 meq STK-MED ONCE .ROUTE 12/02/20 14:56 12/02/20 14:57 DC Potassium Bicarbonate (Potassium Effervescent Tablet) 20 meq 1X ONCE PO 12/02/20 15:00 12/02/20 15:01 DC 12/02/20 15:00 Acetaminophen (Tylenol) 650 mg PRN Q6HRS PRN PO MILD PAIN / TEMP > 100.3'F 12/02/20 15:45 12/29/20 05:11 Multi-Ingredient Ointment (Analgesic [place]) 1 itz PRN QID PRN TP MUSCLE PAIN 12/02/20 15:45 Al Hydroxide/Mg Hydroxide (Mylanta Plus Xs) 15 ml PRN AFTMEALHC PRN PO DYSPEPSIA 12/02/20 15:45 Magnesium Hydroxide (Milk Of Magnesia) 2,400 mg PRN QHS PRN PO CONSTIPATION 12/02/20 15:45 12/03/20 16:29 Lisinopril (Prinivil) 10 mg DAILY PO 12/03/20 09:00 01/05/21 08:25 Multivitamins/ Calcium (Thera-M Plus) 1 tab DAILY PO 12/03/20 09:00 01/05/21 08:25 Olanzapine (ZyPREXA ZYDIS) 2.5 mg PRN Q2HRS PRN PO PSYCHOSIS 12/02/20 17:00 01/01/21 16:22 Potassium Chloride (Klor-Con) 20 meq DAILYWBKFT PO 12/04/20 08:00 01/05/21 08:25 Sertraline HCl (Zoloft) 25 mg DAILY PO 12/04/20 09:00 12/06/20 21:00 DC 12/06/20 08:17 Sertraline HCl (Zoloft) 50 mg DAILY PO 12/07/20 09:00 01/05/21 08:25 Quetiapine Fumarate (SEROquel) 12.5 mg 0900 PO 12/09/20 09:00 12/10/20 16:51 DC 12/10/20 09:00 Quetiapine Fumarate (SEROquel) 12.5 mg ONCE ONCE PO 12/08/20 17:15 12/08/20 17:16 DC 12/08/20 17:15 Quetiapine Fumarate (SEROquel) 12.5 mg 1700 PO 12/09/20 18:00 01/02/21 11:54 DC 01/01/21 17:00 Quetiapine Fumarate (SEROquel) 25 mg 0900 PO 12/11/20 09:00 01/05/21 08:25 Divalproex Sodium (Depakote Sprinkles) 125 mg BID PO 12/12/20 21:00 12/13/20 10:16 DC 12/13/20 08:35 Trazodone HCl (Desyrel) 50 mg PRN QHS PRN PO INSOMNIA 12/13/20 00:30 12/16/20 19:32 Divalproex Sodium (Depakote Sprinkles) 125 mg 0900,1700 PO 12/13/20 17:00 12/13/20 17:49 DC 12/13/20 16:35 Valproic Acid (Depakene) 125 mg 0900,1700 PO 12/14/20 09:00 12/17/20 15:35 DC 12/17/20 08:39 Valproic Acid (Depakene) 125 mg [id number] PO 12/17/20 21:00 12/23/20 16:57 DC 12/23/20 14:05 Valproic Acid (Depakene) 125 mg QID PO 12/23/20 17:00 01/02/21 11:54 DC 01/02/21 08:35 Hydroxyzine HCl (Atarax) 10 mg PRN Q2HR PRN PO ITCHING 12/29/20 20:15 01/01/21 16:21 Quetiapine Fumarate (SEROquel) 25 mg 1700 PO 01/02/21 17:00 01/04/21 16:32 Valproic Acid (Depakene) 125 mg 1300,1700 PO 01/02/21 13:00 01/04/21 16:30 Quetiapine Fumarate (SEROquel) 12.5 mg 1200 PO 01/02/21 12:00 01/04/21 12:39 Valproic Acid (Depakene) 250 mg 0900,2100 PO 01/02/21 21:00 01/05/21 08:25 I have reviewed the current psychotropics carefully including drug interactions. Risk benefit ratio favors no change other than as noted in my dictated progress note. Diagnosis: Problems: (1) Major neurocognitive disorder (2) Impulse control disorder, unspecified (3) Anxiety disorder, unspecified (4) Dementia, vascular, with depression (5) Dementia, vascular, with delusions (6) Dementia in Alzheimer's disease with depression (7) Dementia in Alzheimer's disease with delusions (8) Dementia of the Alzheimer's type with early onset with behavioral disturbance EMILY CHARLES MD Jan 05, 2021 09:39
[2021-01-05 16:13] VITALS: BP 104/66
--- NOTE | 2021-01-05 22:03 | PDOC ---
Exam Note: Earle Note: Please also refer to the separate dictated note~for this date of service dictated separately.~Patient seen individually. Discussed the patient with Nursing staff reviewed the chart.~Reviewed interim history and current functioning. Reviewed vital signs,~Labs/ Radiology~and current medications noted below. Continue current treatment with the changes noted in the dictated addendum note Assessment: Vital Signs/I&O: Vital Signs Date Time Temp Pulse Resp B/P (MAP) Pulse Ox O2 Delivery O2 Flow Rate FiO2 01/05/21 16:13 97.4 88 20 104/66 (79) 96 Room Air I & O 01/04/21 01/04/21 01/05/21 15:00 23:00 07:00 Intake Total 600 ml 240 ml Balance 600 ml 240 ml Current Medications: Meds: Current Medications Medications (Trade) Dose Ordered Sig/Brianne Route PRN Reason Start Time Stop Time Status Last Admin Dose Admin Lorazepam (Ativan) 1 mg STK-MED ONCE .ROUTE 12/02/20 14:25 12/02/20 14:25 DC Lorazepam (Ativan) 1 mg 1X ONCE PO 12/02/20 14:30 12/02/20 14:36 DC 12/02/20 14:31 Potassium/ Phosphorus/Sodium (Phos-Nak) 1 pkt 1X ONCE PO 12/02/20 15:00 12/02/20 15:01 Cancel Potassium Bicarbonate (Potassium Effervescent Tablet) 20 meq STK-MED ONCE .ROUTE 12/02/20 14:56 12/02/20 14:57 DC Potassium Bicarbonate (Potassium Effervescent Tablet) 20 meq 1X ONCE PO 12/02/20 15:00 12/02/20 15:01 DC 12/02/20 15:00 Acetaminophen (Tylenol) 650 mg PRN Q6HRS PRN PO MILD PAIN / TEMP > 100.3'F 12/02/20 15:45 12/29/20 05:11 Multi-Ingredient Ointment (Analgesic [place]) 1 itz PRN QID PRN TP MUSCLE PAIN 12/02/20 15:45 Al Hydroxide/Mg Hydroxide (Mylanta Plus Xs) 15 ml PRN AFTMEALHC PRN PO DYSPEPSIA 12/02/20 15:45 Magnesium Hydroxide (Milk Of Magnesia) 2,400 mg PRN QHS PRN PO CONSTIPATION 12/02/20 15:45 6/15/21 16:29 Lisinopril (Prinivil) 10 mg DAILY PO 12/03/20 09:00 01/05/21 08:25 Multivitamins/ Calcium (Thera-M Plus) 1 tab DAILY PO 12/03/20 09:00 01/05/21 08:25 Olanzapine (ZyPREXA ZYDIS) 2.5 mg PRN Q2HRS PRN PO PSYCHOSIS 12/02/20 17:00 01/01/21 16:22 Potassium Chloride (Klor-Con) 20 meq DAILYWBKFT PO 12/04/20 08:00 01/05/21 08:25 Sertraline HCl (Zoloft) 25 mg DAILY PO 12/04/20 09:00 12/06/20 21:00 DC 12/06/20 08:17 Sertraline HCl (Zoloft) 50 mg DAILY PO 12/07/20 09:00 01/05/21 08:25 Quetiapine Fumarate (SEROquel) 12.5 mg 0900 PO 12/09/20 09:00 12/10/20 16:51 DC 12/10/20 09:00 Quetiapine Fumarate (SEROquel) 12.5 mg ONCE ONCE PO 12/08/20 17:15 12/08/20 17:16 DC 12/08/20 17:15 Quetiapine Fumarate (SEROquel) 12.5 mg 1700 PO 12/09/20 18:00 01/02/21 11:54 DC 01/01/21 17:00 Quetiapine Fumarate (SEROquel) 25 mg 0900 PO 12/11/20 09:00 01/05/21 08:25 Divalproex Sodium (Depakote Sprinkles) 125 mg BID PO 12/12/20 21:00 12/13/20 10:16 DC 12/13/20 08:35 Trazodone HCl (Desyrel) 50 mg PRN QHS PRN PO INSOMNIA 12/13/20 00:30 12/16/20 19:32 Divalproex Sodium (Depakote Sprinkles) 125 mg 0900,1700 PO 12/13/20 17:00 12/13/20 17:49 DC 12/13/20 16:35 Valproic Acid (Depakene) 125 mg 0900,1700 PO 12/14/20 09:00 12/17/20 15:35 DC 12/17/20 08:39 Valproic Acid (Depakene) 125 mg [id number] PO 12/17/20 21:00 12/23/20 16:57 DC 12/23/20 14:05 Valproic Acid (Depakene) 125 mg QID PO 12/23/20 17:00 01/02/21 11:54 DC 01/02/21 08:35 Hydroxyzine HCl (Atarax) 10 mg PRN Q2HR PRN PO ITCHING 12/29/20 20:15 01/01/21 16:21 Quetiapine Fumarate (SEROquel) 25 mg 1700 PO 01/02/21 17:00 01/05/21 17:00 Valproic Acid (Depakene) 125 mg 1300,1700 PO 01/02/21 13:00 01/05/21 17:00 Quetiapine Fumarate (SEROquel) 12.5 mg 1200 PO 01/02/21 12:00 01/05/21 12:00 Valproic Acid (Depakene) 250 mg 0900,2100 PO 01/02/21 21:00 01/05/21 20:06 I have reviewed the current psychotropics carefully including drug interactions. Risk benefit ratio favors no change other than as noted in my dictated progress note. Diagnosis: Problems: (1) Major neurocognitive disorder (2) Impulse control disorder, unspecified (3) Anxiety disorder, unspecified (4) Dementia, vascular, with depression (5) Dementia, vascular, with delusions (6) Dementia in Alzheimer's disease with depression (7) Dementia in Alzheimer's disease with delusions (8) Dementia of the Alzheimer's type with early onset with behavioral d caletEMILY Gardiner MD Jan 05, 2021 22:03
[2021-01-06 05:44] VITALS: BP 121/57
[2021-01-06 07:18] LABS: BASO # 0.1 x10^3/uL (0.0-0.2); BASO % 1 % (0-3); EOS # 0.2 x10^3/uL (0.0-0.7); EOS % 3 % (0-3); HEMATOCRIT 35.1 % (36.0-47.0); LYMPH # 1.3 x10^3/uL (1.0-4.8); LYMPH % 22 % (24-48); MEAN CORPUSCULAR HEMOGLOBIN 32 pg (25-35); MEAN CORPUSCULAR HGB CONC 34 g/dL (31-37); MEAN CORPUSCULAR VOLUME 93 fL (79-100); MONO # 0.5 x10^3/uL (0.0-1.1); MONO % 9 % (0-9); NEUT # 3.7 x10^3uL (1.8-7.7); NEUT % 64 % (31-73); PLATELET COUNT 233 x10^3/uL (140-400); RED BLOOD COUNT 3.77 x10^6/uL (3.50-5.40); WHITE BLOOD COUNT 5.9 x10^3/uL (4.0-11.0)
[2021-01-06 07:40] LABS: ALBUMIN 3.5 g/dL (3.4-5.0); ALBUMIN/GLOBULIN RATIO 1.1 (1.0-1.7); CALCIUM 9.1 mg/dL (8.5-10.1); CREATININE 0.8 mg/dL (0.6-1.0); GFR 68.5; POTASSIUM 4.1 mmol/L (3.5-5.1); TOTAL BILIRUBIN 0.4 mg/dL (0.2-1.0); TOTAL PROTEIN 6.7 g/dL (6.4-8.2)
[2021-01-06 07:45] LABS: VAL ACID 58 mcg/mL (50-100)
[2021-01-06] MEDS: VALPROATE ACID 250 MG/5 ML ORAL SOLUTION PO SCH ×4 (08:23→19:46)
[2021-01-06] MEDS: POTASSIUM CHLORIDE 20 MEQ TABLET.ER. PO SCH (08:23)
[2021-01-06] MEDS: MULTIVITAMIN with MINERAL TABLET. PO SCH (08:23)
[2021-01-06] MEDS: LISINOPRIL 10 MG TABLET PO SCH (08:23)
[2021-01-06] MEDS: QUEtiapine 25 MG TABLET. PO SCH ×3 (08:23→17:18)
[2021-01-06] MEDS: SERTRALINE 50 MG TABLET. PO SCH (08:23)
--- NOTE | 2021-01-06 09:17 | PDOC ---
Exam Note: Earle Note: This note is a late entry for 01/04/2021 covers elements not covered in my initial note. Subjective: The patient was seen individually in the evening of 01/04/2021 with Chuck APPIAH, discussed and reviewed the chart. The patient slept 7 hours previous night. The patient remains confused, wandering, restless. She likes music and her Depakene had to be syringed. Review of Systems: Ambulation impaired. No CV, , pulmonary, eye system s ymptoms on review. Reliability poor. Mental Status Exam: The patient is oriented to herself. I met with her in the dayroom. Insight and judgment, recent and remote memory, attention and concentration is poor consistent with her diagnoses. Laboratory Data: Reviewed. Impression: Major neurocognitive disorder Alzheimer vascular with delusion, depression, and behavioral disturbance. Anxiety disorder unspecified. Impulse control disorder unspecified. Plan: No change from initial note. Assessment: Vital Signs/I&O: Vital Signs Date Time Temp Pulse Resp B/P (MAP) Pulse Ox O2 Delivery O2 Flow Rate FiO2 01/06/21 08:23 70 121/57 01/06/21 05:44 97.7 18 99 01/05/21 16:13 Room Air I & O 01/05/21 01/05/21 01/06/21 15:00 23:00 07:00 Intake Total 360 ml 120 ml Balance 360 ml 120 ml Labs: Laboratory Tests Test 01/06/21 06:57 White Blood Count 5.9 x10^3/uL (4.0-11.0) Red Blood Count 3.77 x10^6/uL (3.50-5.40) Hemoglobin 12.0 g/dL (12.0-15.5) Hematocrit 35.1 % (36.0-47.0) L Mean Corpuscular Volume 93 fL (79-100) Mean Corpuscular Hemoglobin 32 pg (25-35) Mean Corpuscular Hemoglobin Concent 34 g/dL (31-37) Red Cell Distribution Width 13.0 % (11.5-14.5) Platelet Count 233 x10^3/uL (140-400) Neutrophils (%) (Auto) 64 % (31-73) Lymphocytes (%) (Auto) 22 % (24-48) L Monocytes (%) (Auto) 9 % (0-9) Eosinophils (%) (Auto) 3 % (0-3) Basophils (%) (Auto) 1 % (0-3) Neutrophils # (Auto) 3.7 x10^3uL (1.8-7.7) Lymphocytes # (Auto) 1.3 x10^3/uL (1.0-4.8) Monocytes # (Auto) 0.5 x10^3/uL (0.0-1.1) Eosinophils # (Auto) 0.2 x10^3/uL (0.0-0.7) Basophils # (Auto) 0.1 x10^3/uL (0.0-0.2) Sodium Level 143 mmol/L (136-145) Potassium Level 4.1 mmol/L (3.5-5.1) Chloride Level 106 mmol/L (98-107) Carbon Dioxide Level 29 mmol/L (21-32) Anion Gap 8 (6-14) Blood Urea Nitrogen 18 mg/dL (7-20) Creatinine 0.8 mg/dL (0.6-1.0) Estimated GFR (Cockcroft-Gault) 68.5 BUN/Creatinine Ratio 23 (6-20) H Glucose Level 81 mg/dL (70-99) Calcium Level 9.1 mg/dL (8.5-10.1) Total Bilirubin 0.4 mg/dL (0.2-1.0) Aspartate Amino Transferase (AST) 16 U/L (15-37) Alanine Aminotransferase (ALT) 28 U/L (14-59) Alkaline Phosphatase 65 U/L (46-116) Ammonia < 10 mcmol/L (11-34) L Total Protein 6.7 g/dL (6.4-8.2) Albumin 3.5 g/dL (3.4-5.0) Albumin/Globulin Ratio 1.1 (1.0-1.7) Valproic Acid Level 58 mcg/mL (50-100) Valproic Acid Last Dose Date 01/05/21 Valproic Acid Last Dose Time 2100 Current Medications: Meds: Laboratory Tests Test 01/06/21 06:57 White Blood Count 5.9 x10^3/uL Red Blood Count 3.77 x10^6/uL Hemoglobin 12.0 g/dL Hematocrit 35.1 % Mean Corpuscular Volume 93 fL Mean Corpuscular Hemoglobin 32 pg Mean Corpuscular Hemoglobin Concent 34 g/dL Red Cell Distribution Width 13.0 % Platelet Count 233 x10^3/uL Neutrophils (%) (Auto) 64 % Lymphocytes (%) (Auto) 22 % Monocytes (%) (Auto) 9 % Eosinophils (%) (Auto) 3 % Basophils (%) (Auto) 1 % Neutrophils # (Auto) 3.7 x10^3uL Lymphocytes # (Auto) 1.3 x10^3/uL Monocytes # (Auto) 0.5 x10^3/uL Eosinophils # (Auto) 0.2 x10^3/uL Basophils # (Auto) 0.1 x10^3/uL Sodium Level 143 mmol/L Potassium Level 4.1 mmol/L Chloride Level 106 mmol/L Carbon Dioxide Level 29 mmol/L Anion Gap 8 Blood Urea Nitrogen 18 mg/dL Creatinine 0.8 mg/dL Estimated GFR (Cockcroft-Gault) 68.5 BUN/Creatinine Ratio 23 Glucose Level 81 mg/dL Calcium Level 9.1 mg/dL Total Bilirubin 0.4 mg/dL Aspartate Amino Transf (AST/SGOT) 16 U/L Alanine Aminotransferase (ALT/SGPT) 28 U/L Alkaline Phosphatase 65 U/L Ammonia < 10 mcmol/L Total Protein 6.7 g/dL Albumin 3.5 g/dL Albumin/Globulin Ratio 1.1 Valproic Acid (Depakene) Level 58 mcg/mL Valproic Acid Last Dose Date 01/05/21 Valproic Acid Last Dose Time 2100 Current Medications Medications (Trade) Dose Ordered Sig/Brianne Route PRN Reason Start Time Stop Time Status Last Admin Dose Admin Lorazepam (Ativan) 1 mg STK-MED ONCE .ROUTE 12/02/20 14:25 12/02/20 14:25 DC Lorazepam (Ativan) 1 mg 1X ONCE PO 12/02/20 14:30 12/02/20 14:36 DC 12/02/20 14:31 Potassium/ Phosphorus/Sodium (Phos-Nak) 1 pkt 1X ONCE PO 12/02/20 15:00 12/02/20 15:01 Cancel Potassium Bicarbonate (Potassium Effervescent Tablet) 20 meq STK-MED ONCE .ROUTE 12/02/20 14:56 12/02/20 14:57 DC Potassium Bicarbonate (Potassium Effervescent Tablet) 20 meq 1X ONCE PO 12/02/20 15:00 12/02/20 15:01 DC 12/02/20 15:00 Acetaminophen (Tylenol) 650 mg PRN Q6HRS PRN PO MILD PAIN / TEMP > 100.3'F 12/02/20 15:45 12/29/20 05:11 Multi-Ingredient Ointment (Analgesic [place]) 1 itz PRN QID PRN TP MUSCLE PAIN 12/02/20 15:45 Al Hydroxide/Mg Hydroxide (Mylanta Plus Xs) 15 ml PRN AFTMEALHC PRN PO DYSPEPSIA 12/02/20 15:45 Magnesium Hydroxide (Milk Of Magnesia) 2,400 mg PRN QHS PRN PO CONSTIPATION 12/02/20 15:45 12/03/20 16:29 Lisinopril (Prinivil) 10 mg DAILY PO 12/03/20 09:00 01/06/21 08:23 Multivitamins/ Calcium (Thera-M Plus) 1 tab DAILY PO 12/03/20 09:00 01/06/21 08:23 Olanzapine (ZyPREXA ZYDIS) 2.5 mg PRN Q2HRS PRN PO PSYCHOSIS 12/02/20 17:00 01/01/21 16:22 Potassium Chloride (Klor-Con) 20 meq DAILYWBKFT PO 12/04/20 08:00 01/06/21 08:23 Sertraline HCl (Zoloft) 25 mg DAILY PO 12/04/20 09:00 12/06/20 21:00 DC 12/06/20 08:17 Sertraline HCl (Zoloft) 50 mg DAILY PO 12/07/20 09:00 01/06/21 08:23 Quetiapine Fumarate (SEROquel) 12.5 mg 0900 PO 12/09/20 09:00 12/10/20 16:51 DC 12/10/20 09:00 Quetiapine Fumarate (SEROquel) 12.5 mg ONCE ONCE PO 12/08/20 17:15 12/08/20 17:16 DC 12/08/20 17:15 Quetiapine Fumarate (SEROquel) 12.5 mg 1700 PO 12/09/20 18:00 01/02/21 11:54 DC 01/01/21 17:00 Quetiapine Fumarate (SEROquel) 25 mg 0900 PO 12/11/20 09:00 01/06/21 08:23 Divalproex Sodium (Depakote Sprinkles) 125 mg BID PO 12/12/20 21:00 12/13/20 10:16 DC 12/13/20 08:35 Trazodone HCl (Desyrel) 50 mg PRN QHS PRN PO INSOMNIA 12/13/20 00:30 12/16/20 19:32 Divalproex Sodium (Depakote Sprinkles) 125 mg 0900,1700 PO 12/13/20 17:00 12/13/20 17:49 DC 12/13/20 16:35 Valproic Acid (Depakene) 125 mg 0900,1700 PO 12/14/20 09:00 12/17/20 15:35 DC 12/17/20 08:39 Valproic Acid (Depakene) 125 mg [id number] PO 12/17/20 21:00 12/23/20 16:57 DC 12/23/20 14:05 Valproic Acid (Depakene) 125 mg QID PO 12/23/20 17:00 01/02/21 11:54 DC 01/02/21 08:35 Hydroxyzine HCl (Atarax) 10 mg PRN Q2HR PRN PO ITCHING 12/29/20 20:15 01/01/21 16:21 Quetiapine Fumarate (SEROquel) 25 mg 1700 PO 01/02/21 17:00 01/05/21 17:00 Valproic Acid (Depakene) 125 mg 1300,1700 PO 01/02/21 13:00 01/05/21 17:00 Quetiapine Fumarate (SEROquel) 12.5 mg 1200 PO 01/02/21 12:00 01/05/21 12:00 Valproic Acid (Depakene) 250 mg 0900,2100 PO 01/02/21 21:00 01/06/21 08:23 I have reviewed the current psychotropics carefully including drug interactions. Risk benefit ratio favors no change other than as noted in my dictated progress note. Diagnosis: Problems: (1) Major neurocognitive disorder (2) Impulse control disorder, unspecified (3) Anxiety disorder, unspecified (4) Dementia, vascular, with depression (5) Dementia, vascular, with delusions (6) Dementia in Alzheimer's disease with depression (7) Dementia in Alzheimer's disease with delusions (8) Dementia of the Alzheimer's type with early onset with behavioral disturbance EMILY CHARLES MD Jan 06, 2021 09:17
--- NOTE | 2021-01-06 09:44 | PDOC ---
Exam Note: Earle Note: This note is a late entry for 01/05/2021 covers elements not covered in my initial note. Subjective: The patient was seen individually in the evening of 01/05/2021 with Drea APPIAH, discussed and reviewed the chart. The patient slept 7 hours previous night. The patient is more redirectable, confused, takes Depakene in syringe. Review of Systems: Ambulation impaired. No CV, , pulmonary, eye system symptoms on review. Reliability poor. Mental Status Exam: The patient is oriented to herself. I met with her in the dayroom. Insight and judgment, recent and remote memory, attention and concentration is poor consistent with her diagnoses. Laboratory Data: Reviewed. Impression: Major neurocognitive disorder Alzheimer vascular with delusion, depression, and behavioral disturbance. Anxiety disorder unspecified. Impulse control disorder unspecified. Plan: No change from initial note. Assessment: Vital Signs/I&O: Vital Signs Date Time Temp Pulse Resp B/P (MAP) Pulse Ox O2 Delivery O2 Flow Rate FiO2 01/06/21 08:23 70 121/57 01/06/21 05:44 97.7 18 99 01/05/21 16:13 Room Air I & O 01/05/21 01/05/21 01/06/21 15:00 23:00 07:00 Intake Total 360 ml 120 ml Balance 360 ml 120 ml Labs: Laboratory Tests Test 01/06/21 06:57 White Blood Count 5.9 x10^3/uL (4.0-11.0) Red Blood Count 3.77 x10^6/uL (3.50-5.40) Hemoglobin 12.0 g/dL (12.0-15.5) Hematocrit 35.1 % (36.0-47.0) L Mean Corpuscular Volume 93 fL (79-100) Mean Corpuscular Hemoglobin 32 pg (25-35) Mean Corpuscular Hemoglobin Concent 34 g/dL (31-37) Red Cell Distribution Width 13.0 % (11.5-14.5) Platelet Count 233 x10^3/uL (140-400) Neutrophils (%) (Auto) 64 % (31-73) Lymphocytes (%) (Auto) 22 % (24-48) L Monocytes (%) (Auto) 9 % (0-9) Eosinophils (%) (Auto) 3 % (0-3) Basophils (%) (Auto) 1 % (0-3) Neutrophils # (Auto) 3.7 x10^3uL (1.8-7.7) Lymphocytes # (Auto) 1.3 x10^3/uL (1.0-4.8) Monocytes # (Auto) 0.5 x10^3/uL (0.0-1.1) Eosinophils # (Auto) 0.2 x10^3/uL (0.0-0.7) Basophils # (Auto) 0.1 x10^3/uL (0.0-0.2) Sodium Level 143 mmol/L (136-145) Potassium Level 4.1 mmol/L (3.5-5.1) Chloride Level 106 mmol/L (98-107) Carbon Dioxide Level 29 mmol/L (21-32) Anion Gap 8 (6-14) Blood Urea Nitrogen 18 mg/dL (7-20) Creatinine 0.8 mg/dL (0.6-1.0) Estimated GFR (Cockcroft-Gault) 68.5 BUN/Creatinine Ratio 23 (6-20) H Glucose Level 81 mg/dL (70-99) Calcium Level 9.1 mg/dL (8.5-10.1) Total Bilirubin 0.4 mg/dL (0.2-1.0) Aspartate Amino Transferase (AST) 16 U/L (15-37) Alanine Aminotransferase (ALT) 28 U/L (14-59) Alkaline Phosphatase 65 U/L (46-116) Ammonia < 10 mcmol/L (11-34) L Total Protein 6.7 g/dL (6.4-8.2) Albumin 3.5 g/dL (3.4-5.0) Albumin/Globulin Ratio 1.1 (1.0-1.7) Valproic Acid Level 58 mcg/mL (50-100) Valproic Acid Last Dose Date 01/05/21 Valproic Acid Last Dose Time 2100 Current Medications: Meds: Laboratory Tests Test 01/06/21 06:57 White Blood Count 5.9 x10^3/uL Red Blood Count 3.77 x10^6/uL Hemoglobin 12.0 g/dL Hematocrit 35.1 % Mean Corpuscular Volume 93 fL Mean Corpuscular Hemoglobin 32 pg Mean Corpuscular Hemoglobin Concent 34 g/dL Red Cell Distribution Width 13.0 % Platelet Count 233 x10^3/uL Neutrophils (%) (Auto) 64 % Lymphocytes (%) (Auto) 22 % Monocytes (%) (Auto) 9 % Eosinophils (%) (Auto) 3 % Basophils (%) (Auto) 1 % Neutrophils # (Auto) 3.7 x10^3uL Lymphocytes # (Auto) 1.3 x10^3/uL Monocytes # (Auto) 0.5 x10^3/uL Eosinophils # (Auto) 0.2 x10^3/uL Basophils # (Auto) 0.1 x10^3/uL Sodium Level 143 mmol/L Potassium Level 4.1 mmol/L Chloride Level 106 mmol/L Carbon Dioxide Level 29 mmol/L Anion Gap 8 Blood Urea Nitrogen 18 mg/dL Creatinine 0.8 mg/dL Estimated GFR (Cockcroft-Gault) 68.5 BUN/Creatinine Ratio 23 Glucose Level 81 mg/dL Calcium Level 9.1 mg/dL Total Bilirubin 0.4 mg/dL Aspartate Amino Transf (AST/SGOT) 16 U/L Alanine Aminotransferase (ALT/SGPT) 28 U/L Alkaline Phosphatase 65 U/L Ammonia < 10 mcmol/L Total Protein 6.7 g/dL Albumin 3.5 g/dL Albumin/Globulin Ratio 1.1 Valproic Acid (Depakene) Level 58 mcg/mL Valproic Acid Last Dose Date 01/05/21 Valproic Acid Last Dose Time 2100 Current Medications Medications (Trade) Dose Ordered Sig/Brianne Route PRN Reason Start Time Stop Time Status Last Admin Dose Admin Lorazepam (Ativan) 1 mg STK-MED ONCE .ROUTE 12/02/20 14:25 12/02/20 14:25 DC Lorazepam (Ativan) 1 mg 1X ONCE PO 12/02/20 14:30 12/02/20 14:36 DC 12/02/20 14:31 Potassium/ Phosphorus/Sodium (Phos-Nak) 1 pkt 1X ONCE PO 12/02/20 15:00 12/02/20 15:01 Cancel Potassium Bicarbonate (Potassium Effervescent Tablet) 20 meq STK-MED ONCE .ROUTE 12/02/20 14:56 12/02/20 14:57 DC Potassium Bicarbonate (Potassium Effervescent Tablet) 20 meq 1X ONCE PO 12/02/20 15:00 12/02/20 15:01 DC 12/02/20 15:00 Acetaminophen (Tylenol) 650 mg PRN Q6HRS PRN PO MILD PAIN / TEMP > 100.3'F 12/02/20 15:45 12/29/20 05:11 Multi-Ingredient Ointment (Analgesic [place]) 1 itz PRN QID PRN TP MUSCLE PAIN 12/02/20 15:45 Al Hydroxide/Mg Hydroxide (Mylanta Plus Xs) 15 ml PRN AFTMEALHC PRN PO DYSPEPSIA 12/02/20 15:45 Magnesium Hydroxide (Milk Of Magnesia) 2,400 mg PRN QHS PRN PO CONSTIPATION 12/02/20 15:45 12/03/20 16:29 Lisinopril (Prinivil) 10 mg DAILY PO 12/03/20 09:00 01/06/21 08:23 Multivitamins/ Calcium (Thera-M Plus) 1 tab DAILY PO 12/03/20 09:00 01/06/21 08:23 Olanzapine (ZyPREXA ZYDIS) 2.5 mg PRN Q2HRS PRN PO PSYCHOSIS 12/02/20 17:00 01/01/21 16:22 Potassium Chloride (Klor-Con) 20 meq DAILYWBKFT PO 12/04/20 08:00 01/06/21 08:23 Sertraline HCl (Zoloft) 25 mg DAILY PO 12/04/20 09:00 12/06/20 21:00 DC 12/06/20 08:17 Sertraline HCl (Zoloft) 50 mg DAILY PO 12/07/20 09:00 01/06/21 08:23 Quetiapine Fumarate (SEROquel) 12.5 mg 0900 PO 12/09/20 09:00 12/10/20 16:51 DC 12/10/20 09:00 Quetiapine Fumarate (SEROquel) 12.5 mg ONCE ONCE PO 12/08/20 17:15 12/08/20 17:16 DC 12/08/20 17:15 Quetiapine Fumarate (SEROquel) 12.5 mg 1700 PO 12/09/20 18:00 01/02/21 11:54 DC 01/01/21 17:00 Quetiapine Fumarate (SEROquel) 25 mg 0900 PO 12/11/20 09:00 01/06/21 08:23 Divalproex Sodium (Depakote Sprinkles) 125 mg BID PO 12/12/20 21:00 12/13/20 10:16 DC 12/13/20 08:35 Trazodone HCl (Desyrel) 50 mg PRN QHS PRN PO INSOMNIA 12/13/20 00:30 12/16/20 19:32 Divalproex Sodium (Depakote Sprinkles) 125 mg 0900,1700 PO 12/13/20 17:00 12/13/20 17:49 DC 12/13/20 16:35 Valproic Acid (Depakene) 125 mg 0900,1700 PO 12/14/20 09:00 12/17/20 15:35 DC 12/17/20 08:39 Valproic Acid (Depakene) 125 mg [id number] PO 12/17/20 21:00 12/23/20 16:57 DC 12/23/20 14:05 Valproic Acid (Depakene) 125 mg QID PO 12/23/20 17:00 01/02/21 11:54 DC 01/02/21 08:35 Hydroxyzine HCl (Atarax) 10 mg PRN Q2HR PRN PO ITCHING 12/29/20 20:15 01/01/21 16:21 Quetiapine Fumarate (SEROquel) 25 mg 1700 PO 01/02/21 17:00 01/05/21 17:00 Valproic Acid (Depakene) 125 mg 1300,1700 PO 01/02/21 13:00 01/05/21 17:00 Quetiapine Fumarate (SEROquel) 12.5 mg 1200 PO 01/02/21 12:00 01/05/21 12:00 Valproic Acid (Depakene) 250 mg 0900,2100 PO 01/02/21 21:00 01/06/21 08:23 I have reviewed the current psychotropics carefully including drug interactions. Risk benefit ratio favors no change other than as noted in my dictated progress note. Diagnosis: Problems: (1) Major neurocognitive disorder (2) Impulse control disorder, unspecified (3) Anxiety disorder, unspecified (4) Dementia, vascular, with depression (5) Dementia, vascular, with delusions (6) Dementia in Alzheimer's disease with depression (7) Dementia in Alzheimer's disease with delusions (8) Dementia of the Alzheimer's type with early onset with behavioral disturbance EMILY CHARLES MD Jan 06, 2021 09:44
[2021-01-06 16:17] VITALS: BP 115/62
--- NOTE | 2021-01-06 22:16 | PDOC ---
Exam Note: Earle Note: Please also refer to the separate dictated note~for this date of service dictated separately.~Patient seen individually. Discussed the patient with Nursing staff reviewed the chart.~Reviewed interim history and current functioning. Reviewed vital signs,~Labs/ Radiology~and current medications noted below. Continue current treatment with the changes noted in the dictated addendum note Assessment: Vital Signs/I&O: Vital Signs Date Time Temp Pulse Resp B/P (MAP) Pulse Ox O2 Delivery O2 Flow Rate FiO2 01/06/21 16:17 97.2 86 18 115/62 (79) 100 01/05/21 16:13 Room Air I & O 01/05/21 01/05/21 01/06/21 14:59 22:59 06:59 Intake Total 360 ml 120 ml Balance 360 ml 120 ml Labs: Laboratory Tests Test 01/06/21 06:57 White Blood Count 5.9 x10^3/uL (4.0-11.0) Red Blood Count 3.77 x10^6/uL (3.50-5.40) Hemoglobin 12.0 g/dL (12.0-15.5) Hematocrit 35.1 % (36.0-47.0) L Mean Corpuscular Volume 93 fL (79-100) Mean Corpuscular Hemoglobin 32 pg (25-35) Mean Corpuscular Hemoglobin Concent 34 g/dL (31-37) Red Cell Distribution Width 13.0 % (11.5-14.5) Platelet Count 233 x10^3/uL (140-400) Neutrophils (%) (Auto) 64 % (31-73) Lymphocytes (%) (Auto) 22 % (24-48) L Monocytes (%) (Auto) 9 % (0-9) Eosinophils (%) (Auto) 3 % (0-3) Basophils (%) (Auto) 1 % (0-3) Neutrophils # (Auto) 3.7 x10^3uL (1.8-7.7) Lymphocytes # (Auto) 1.3 x10^3/uL (1.0-4.8) Monocytes # (Auto) 0.5 x10^3/uL (0.0-1.1) Eosinophils # (Auto) 0.2 x10^3/uL (0.0-0.7) Basophils # (Auto) 0.1 x10^3/uL (0.0-0.2) Sodium Level 143 mmol/L (136-145) Potassium Level 4.1 mmol/L (3.5-5.1) Chloride Level 106 mmol/L (98-107) Carbon Dioxide Level 29 mmol/L (21-32) Anion Gap 8 (6-14) Blood Urea Nitrogen 18 mg/dL (7-20) Creatinine 0.8 mg/dL (0.6-1.0) Estimated GFR (Cockcroft-Gault) 68.5 BUN/Creatinine Ratio 23 (6-20) H Glucose Level 81 mg/dL (70-99) Calcium Level 9.1 mg/dL (8.5-10.1) Total Bilirubin 0.4 mg/dL (0.2-1.0) Aspartate Amino Transferase (AST) 16 U/L (15-37) Alanine Aminotransferase (ALT) 28 U/L (14-59) Alkaline Phosphatase 65 U/L (46-116) Ammonia < 10 mcmol/L (11-34) L Total Protein 6.7 g/dL (6.4-8.2) Albumin 3.5 g/dL (3.4-5.0) Albumin/Globulin Ratio 1.1 (1.0-1.7) Valproic Acid Level 58 mcg/mL (50-100) Valproic Acid Last Dose Date 01/05/21 Valproic Acid Last Dose Time 2100 Current Medications: Meds: Laboratory Tests Test 01/06/21 06:57 White Blood Count 5.9 x10^3/uL Red Blood Count 3.77 x10^6/uL Hemoglobin 12.0 g/dL Hematocrit 35.1 % Mean Corpuscular Volume 93 fL Mean Corpuscular Hemoglobin 32 pg Mean Corpuscular Hemoglobin Concent 34 g/dL Red Cell Distribution Width 13.0 % Platelet Count 233 x10^3/uL Neutrophils (%) (Auto) 64 % Lymphocytes (%) (Auto) 22 % Monocytes (%) (Auto) 9 % Eosinophils (%) (Auto) 3 % Basophils (%) (Auto) 1 % Neutrophils # (Auto) 3.7 x10^3uL Lymphocytes # (Auto) 1.3 x10^3/uL Monocytes # (Auto) 0.5 x10^3/uL Eosinophils # (Auto) 0.2 x10^3/uL Basophils # (Auto) 0.1 x10^3/uL Sodium Level 143 mmol/L Potassium Level 4.1 mmol/L Chloride Level 106 mmol/L Carbon Dioxide Level 29 mmol/L Anion Gap 8 Blood Urea Nitrogen 18 mg/dL Creatinine 0.8 mg/dL Estimated GFR (Cockcroft-Gault) 68.5 BUN/Creatinine Ratio 23 Glucose Level 81 mg/dL Calcium Level 9.1 mg/dL Total Bilirubin 0.4 mg/dL Aspartate Amino Transf (AST/SGOT) 16 U/L Alanine Aminotransferase (ALT/SGPT) 28 U/L Alkaline Phosphatase 65 U/L Ammonia < 10 mcmol/L Total Protein 6.7 g/dL Albumin 3.5 g/dL Albumin/Globulin Ratio 1.1 Valproic Acid (Depakene) Level 58 mcg/mL Valproic Acid Last Dose Date 01/05/21 Valproic Acid Last Dose Time 2100 Current Medications Medications (Trade) Dose Ordered Sig/Brianne Route PRN Reason Start Time Stop Time Status Last Admin Dose Admin Lorazepam (Ativan) 1 mg STK-MED ONCE .ROUTE 12/02/20 14:25 12/02/20 14:25 DC Lorazepam (Ativan) 1 mg 1X ONCE PO 12/02/20 14:30 12/02/20 14:36 DC 12/02/20 14:31 Potassium/ Phosphorus/Sodium (Phos-Nak) 1 pkt 1X ONCE PO 12/02/20 15:00 12/02/20 15:01 Cancel Potassium Bicarbonate (Potassium Effervescent Tablet) 20 meq STK-MED ONCE .ROUTE 12/02/20 14:56 12/02/20 14:57 DC Potassium Bicarbonate (Potassium Effervescent Tablet) 20 meq 1X ONCE PO 12/02/20 15:00 12/02/20 15:01 DC 12/02/20 15:00 Acetaminophen (Tylenol) 650 mg PRN Q6HRS PRN PO MILD PAIN / TEMP > 100.3'F 12/02/20 15:45 12/29/20 05:11 Multi-Ingredient Ointment (Analgesic [place]) 1 itz PRN QID PRN TP MUSCLE PAIN 12/02/20 15:45 Al Hydroxide/Mg Hydroxide (Mylanta Plus Xs) 15 ml PRN AFTMEALHC PRN PO DYSPEPSIA 12/02/20 15:45 Magnesium Hydroxide (Milk Of Magnesia) 2,400 mg PRN QHS PRN PO CONSTIPATION 12/02/20 15:45 12/03/20 16:29 Lisinopril (Prinivil) 10 mg DAILY PO 12/03/20 09:00 01/06/21 08:23 Multivitamins/ Calcium (Thera-M Plus) 1 tab DAILY PO 12/03/20 09:00 01/06/21 08:23 Olanzapine (ZyPREXA ZYDIS) 2.5 mg PRN Q2HRS PRN PO PSYCHOSIS 12/02/20 17:00 01/06/21 15:58 Potassium Chloride (Klor-Con) 20 meq DAILYWBKFT PO 12/04/20 08:00 01/06/21 08:23 Sertraline HCl (Zoloft) 25 mg DAILY PO 12/04/20 09:00 12/06/20 21:00 DC 12/06/20 08:17 Sertraline HCl (Zoloft) 50 mg DAILY PO 12/07/20 09:00 01/06/21 08:23 Quetiapine Fumarate (SEROquel) 12.5 mg 0900 PO 12/09/20 09:00 12/10/20 16:51 DC 12/10/20 09:00 Quetiapine Fumarate (SEROquel) 12.5 mg ONCE ONCE PO 12/08/20 17:15 12/08/20 17:16 DC 12/08/20 17:15 Quetiapine Fumarate (SEROquel) 12.5 mg 1700 PO 12/09/20 18:00 01/02/21 11:54 DC 01/01/21 17:00 Quetiapine Fumarate (SEROquel) 25 mg 0900 PO 12/11/20 09:00 01/06/21 08:23 Divalproex Sodium (Depakote Sprinkles) 125 mg BID PO 12/12/20 21:00 12/13/20 10:16 DC 12/13/20 08:35 Trazodone HCl (Desyrel) 50 mg PRN QHS PRN PO INSOMNIA 12/13/20 00:30 12/16/20 19:32 Divalproex Sodium (Depakote Sprinkles) 125 mg 0900,1700 PO 12/13/20 17:00 12/13/20 17:49 DC 12/13/20 16:35 Valproic Acid (Depakene) 125 mg 0900,1700 PO 12/14/20 09:00 12/17/20 15:35 DC 12/17/20 08:39 Valproic Acid (Depakene) 125 mg [id number] PO 12/17/20 21:00 12/23/20 16:57 DC 12/23/20 14:05 Valproic Acid (Depakene) 125 mg QID PO 12/23/20 17:00 01/02/21 11:54 DC 01/02/21 08:35 Hydroxyzine HCl (Atarax) 10 mg PRN Q2HR PRN PO ITCHING 12/29/20 20:15 01/01/21 16:21 Quetiapine Fumarate (SEROquel) 25 mg 1700 PO 01/02/21 17:00 01/06/21 17:18 Valproic Acid (Depakene) 125 mg 1300,1700 PO 01/02/21 13:00 01/06/21 17:18 Quetiapine Fumarate (SEROquel) 12.5 mg 1200 PO 01/02/21 12:00 01/06/21 12:13 Valproic Acid (Depakene) 250 mg 0900,2100 PO 01/02/21 21:00 01/06/21 19:46 I have reviewed the current psychotropics carefully including drug interactions. Risk benefit ratio favors no change other than as noted in my dictated progress note. Diagnosis: Problems: (1) Major neurocognitive disorder (2) Impulse control disorder, unspecified (3) Anxiety disorder, unspecified (4) Dementia, vascular, with depression (5) Dementia, vascular, with delusions (6) Dementia in Alzheimer's disease with depression (7) Dementia in Alzheimer's disease with delusions (8) Dementia of the Alzheimer's type with early onset with behavioral disturbance EMILY CHARLES MD Jan 06, 2021 22:16
[2021-01-07 05:48] VITALS: BP 109/61
[2021-01-07] MEDS: SERTRALINE 50 MG TABLET. PO SCH (09:10)
[2021-01-07] MEDS: MULTIVITAMIN with MINERAL TABLET. PO SCH (09:10)
[2021-01-07] MEDS: QUEtiapine 25 MG TABLET. PO SCH ×3 (09:10→17:19)
[2021-01-07] MEDS: POTASSIUM CHLORIDE 20 MEQ TABLET.ER. PO SCH (09:11)
[2021-01-07] MEDS: LISINOPRIL 10 MG TABLET PO SCH (09:12)
[2021-01-07] MEDS: VALPROATE ACID 250 MG/5 ML ORAL SOLUTION PO SCH ×4 (09:13→21:06)
[2021-01-07 15:39] VITALS: BP 112/61
--- NOTE | 2021-01-07 22:01 | PDOC ---
Exam Note: Earle Note: Please also refer to the separate dictated note~for this date of service dictated separately.~Patient seen individually. Discussed the patient with Nursing staff reviewed the chart.~Reviewed interim history and current functioning. Reviewed vital signs,~Labs/ Radiology~and current medications noted below. Continue current treatment with the changes noted in the dictated addendum note Assessment: Vital Signs/I&O: Vital Signs Date Time Temp Pulse Resp B/P (MAP) Pulse Ox O2 Delivery O2 Flow Rate FiO2 01/07/21 15:39 96.8 75 16 112/61 (78) 97 01/05/21 16:13 Room Air I & O 01/06/21 01/06/21 01/07/21 15:00 23:00 07:00 Intake Total 480 ml 480 ml Balance 480 ml 480 ml Current Medications: Meds: Current Medications Medications (Trade) Dose Ordered Sig/Brianne Route PRN Reason Start Time Stop Time Status Last Admin Dose Admin Lorazepam (Ativan) 1 mg STK-MED ONCE .ROUTE 12/02/20 14:25 12/02/20 14:25 DC Lorazepam (Ativan) 1 mg 1X ONCE PO 12/02/20 14:30 12/02/20 14:36 DC 12/02/20 14:31 Potassium/ Phosphorus/Sodium (Phos-Nak) 1 pkt 1X ONCE PO 12/02/20 15:00 12/02/20 15:01 Cancel Potassium Bicarbonate (Potassium Effervescent Tablet) 20 meq STK-MED ONCE .ROUTE 12/02/20 14:56 12/02/20 14:57 DC Potassium Bicarbonate (Potassium Effervescent Tablet) 20 meq 1X ONCE PO 12/02/20 15:00 12/02/20 15:01 DC 12/02/20 15:00 Acetaminophen (Tylenol) 650 mg PRN Q6HRS PRN PO MILD PAIN / TEMP > 100.3'F 12/02/20 15:45 12/29/20 05:11 Multi-Ingredient Ointment (Analgesic [place]) 1 itz PRN QID PRN TP MUSCLE PAIN 12/02/20 15:45 Al Hydroxide/Mg Hydroxide (Mylanta Plus Xs) 15 ml PRN AFTMEALHC PRN PO DYSPEPSIA 12/02/20 15:45 Magnesium Hydroxide (Milk Of Magnesia) 2,400 mg PRN QHS PRN PO CONSTIPATION 12/02/20 15:45 12/03/20 16:29 Lisinopril (Prinivil) 10 mg DAILY PO 12/03/20 09:00 01/07/21 09:12 Multivitamins/ Calcium (Thera-M Plus) 1 tab DAILY PO 12/03/20 09:00 01/07/21 09:10 Olanzapine (ZyPREXA ZYDIS) 2.5 mg PRN Q2HRS PRN PO PSYCHOSIS 12/02/20 17:00 01/07/21 18:41 Potassium Chloride (Klor-Con) 20 meq DAILYWBKFT PO 12/04/20 08:00 01/07/21 09:11 Sertraline HCl (Zoloft) 25 mg DAILY PO 12/04/20 09:00 12/06/20 21:00 DC 12/06/20 08:17 Sertraline HCl (Zoloft) 50 mg DAILY PO 12/07/20 09:00 01/07/21 09:10 Quetiapine Fumarate (SEROquel) 12.5 mg 0900 PO 12/09/20 09:00 12/10/20 16:51 DC 12/10/20 09:00 Quetiapine Fumarate (SEROquel) 12.5 mg ONCE ONCE PO 12/08/20 17:15 12/08/20 17:16 DC 12/08/20 17:15 Quetiapine Fumarate (SEROquel) 12.5 mg 1700 PO 12/09/20 18:00 01/02/21 11:54 DC 01/01/21 17:00 Quetiapine Fumarate (SEROquel) 25 mg 0900 PO 12/11/20 09:00 01/07/21 09:10 Divalproex Sodium (Depakote Sprinkles) 125 mg BID PO 12/12/20 21:00 12/13/20 10:16 DC 12/13/20 08:35 Trazodone HCl (Desyrel) 50 mg PRN QHS PRN PO INSOMNIA 12/13/20 00:30 12/16/20 19:32 Divalproex Sodium (Depakote Sprinkles) 125 mg 0900,1700 PO 12/13/20 17:00 12/13/20 17:49 DC 12/13/20 16:35 Valproic Acid (Depakene) 125 mg 0900,1700 PO 12/14/20 09:00 12/17/20 15:35 DC 12/17/20 08:39 Valproic Acid (Depakene) 125 mg [id number] PO 12/17/20 21:00 12/23/20 16:57 DC 12/23/20 14:05 Valproic Acid (Depakene) 125 mg QID PO 12/23/20 17:00 01/02/21 11:54 DC 01/02/21 08:35 Hydroxyzine HCl (Atarax) 10 mg PRN Q2HR PRN PO ITCHING 12/29/20 20:15 01/01/21 16:21 Quetiapine Fumarate (SEROquel) 25 mg 1700 PO 01/02/21 17:00 01/07/21 17:19 Valproic Acid (Depakene) 125 mg 1300,1700 PO 01/02/21 13:00 01/07/21 17:19 Quetiapine Fumarate (SEROquel) 12.5 mg 1200 PO 01/02/21 12:00 01/07/21 12:04 Valproic Acid (Depakene) 250 mg 0900,2100 PO 01/02/21 21:00 01/07/21 21:06 I have reviewed the current psychotropics carefully including drug interactions. Risk benefit ratio favors no change other than as noted in my dictated progress note. Diagnosis: Problems: (1) Major neurocognitive disorder (2) Impulse control disorder, unspecified (3) Anxiety disorder, unspecified (4) Dementia, vascular, with depression (5) Dementia, vascular, with delusions (6) Dementia in Alzheimer's disease with depression (7) Dementia in Alzheimer's disease with delusions (8) Dementia of the Alzheimer's type with early onset with behavioral disturbance EMILY CHARLES MD Jan 07, 2021 22:00
[2021-01-08 06:10] VITALS: BP 119/71
[2021-01-08] MEDS: POTASSIUM CHLORIDE 20 MEQ TABLET.ER. PO SCH (08:00)
--- NOTE | 2021-01-08 08:31 | PDOC ---
Exam Note: Earle Note: This note is a late entry for 01/06/2021 covers elements not covered in my initial note. Subjective: The patient was seen individually in the evening of 01/06/2021 with Rica APPIAH, discussed and reviewed the chart. The patient slept 5-1/2 hours previous night. Appetite is 75%. Sleep average is 6-3/4 hours. She remains confused, walks rapidly up and down the hallway, at times running but redirects. Received Zyprexa p.r.n. at 3.55 p.m. Valproic acid level is 58 therapeutic. No aggressive or disruptive behaviors noted though she remains confused, understandably consistent with her diagnoses. Review of Systems: Ambulation impaired. No CV, , pulmonary, eye system symptoms on review. Reliability poor. Mental Status Exam: The patient is oriented to herself. I met with her in the dayroom. Insight and judgment, recent and remote memory, attention and concentration is poor consistent with her diagnoses. Laboratory Data: Reviewed. Impression: Major neurocognitive disorder Alzheimer vascular with delusion, depression, and behavioral disturbance. Anxiety disorder unspecified. Impulse control disorder unspecified. Plan: No change from initial note. Assessment: Vital Signs/I&O: Vital Signs Date Time Temp Pulse Resp B/P (MAP) Pulse Ox O2 Delivery O2 Flow Rate FiO2 01/08/21 06:10 97.4 62 16 119/71 (87) 96 01/05/21 16:13 Room Air I & O 01/07/21 01/07/21 01/08/21 15:00 23:00 07:00 Intake Total 600 ml 480 ml Balance 600 ml 480 ml Current Medications: Meds: Current Medications Medications (Trade) Dose Ordered Sig/Brianne Route PRN Reason Start Time Stop Time Status Last Admin Dose Admin Lorazepam (Ativan) 1 mg STK-MED ONCE .ROUTE 12/02/20 14:25 12/02/20 14:25 DC Lorazepam (Ativan) 1 mg 1X ONCE PO 12/02/20 14:30 12/02/20 14:36 DC 12/02/20 14:31 Potassium/ Phosphorus/Sodium (Phos-Nak) 1 pkt 1X ONCE PO 12/02/20 15:00 12/02/20 15:01 Cancel Potassium Bicarbonate (Potassium Effervescent Tablet) 20 meq STK-MED ONCE .ROUTE 12/02/20 14:56 12/02/20 14:57 DC Potassium Bicarbonate (Potassium Effervescent Tablet) 20 meq 1X ONCE PO 12/02/20 15:00 12/02/20 15:01 DC 12/02/20 15:00 Acetaminophen (Tylenol) 650 mg PRN Q6HRS PRN PO MILD PAIN / TEMP > 100.3'F 12/02/20 15:45 12/29/20 05:11 Multi-Ingredient Ointment (Analgesic [place]) 1 itz PRN QID PRN TP MUSCLE PAIN 12/02/20 15:45 Al Hydroxide/Mg Hydroxide (Mylanta Plus Xs) 15 ml PRN AFTMEALHC PRN PO DYSPEPSIA 12/02/20 15:45 Magnesium Hydroxide (Milk Of Magnesia) 2,400 mg PRN QHS PRN PO CONSTIPATION 12/02/20 15:45 12/03/20 16:29 Lisinopril (Prinivil) 10 mg DAILY PO 12/03/20 09:00 01/07/21 09:12 Multivitamins/ Calcium (Thera-M Plus) 1 tab DAILY PO 12/03/20 09:00 01/07/21 09:10 Olanzapine (ZyPREXA ZYDIS) 2.5 mg PRN Q2HRS PRN PO PSYCHOSIS 12/02/20 17:00 01/07/21 18:41 Potassium Chloride (Klor-Con) 20 meq DAILYWBKFT PO 12/04/20 08:00 01/07/21 09:11 Sertraline HCl (Zoloft) 25 mg DAILY PO 12/04/20 09:00 12/06/20 21:00 DC 12/06/20 08:17 Sertraline HCl (Zoloft) 50 mg DAILY PO 12/07/20 09:00 01/07/21 09:10 Quetiapine Fumarate (SEROquel) 12.5 mg 0900 PO 12/09/20 09:00 12/10/20 16:51 DC 12/10/20 09:00 Quetiapine Fumarate (SEROquel) 12.5 mg ONCE ONCE PO 12/08/20 17:15 12/08/20 17:16 DC 12/08/20 17:15 Quetiapine Fumarate (SEROquel) 12.5 mg 1700 PO 12/09/20 18:00 01/02/21 11:54 DC 01/01/21 17:00 Quetiapine Fumarate (SEROquel) 25 mg 0900 PO 12/11/20 09:00 01/07/21 09:10 Divalproex Sodium (Depakote Sprinkles) 125 mg BID PO 12/12/20 21:00 12/13/20 10:16 DC 12/13/20 08:35 Trazodone HCl (Desyrel) 50 mg PRN QHS PRN PO INSOMNIA 12/13/20 00:30 12/16/20 19:32 Divalproex Sodium (Depakote Sprinkles) 125 mg 0900,1700 PO 12/13/20 17:00 12/13/20 17:49 DC 12/13/20 16:35 Valproic Acid (Depakene) 125 mg 0900,1700 PO 12/14/20 09:00 12/17/20 15:35 DC 12/17/20 08:39 Valproic Acid (Depakene) 125 mg [id number] PO 12/17/20 21:00 12/23/20 16:57 DC 12/23/20 14:05 Valproic Acid (Depakene) 125 mg QID PO 12/23/20 17:00 01/02/21 11:54 DC 01/02/21 08:35 Hydroxyzine HCl (Atarax) 10 mg PRN Q2HR PRN PO ITCHING 12/29/20 20:15 01/01/21 16:21 Quetiapine Fumarate (SEROquel) 25 mg 1700 PO 01/02/21 17:00 01/07/21 17:19 Valproic Acid (Depakene) 125 mg 1300,1700 PO 01/02/21 13:00 01/07/21 17:19 Quetiapine Fumarate (SEROquel) 12.5 mg 1200 PO 01/02/21 12:00 01/07/21 12:04 Valproic Acid (Depakene) 250 mg 0900,2100 PO 01/02/21 21:00 01/07/21 21:06 I have reviewed the current psychotropics carefully including drug interactions. Risk benefit ratio favors no change other than as noted in my dictated progress note. Diagnosis: Problems: (1) Major neurocognitive disorder (2) Impulse control disorder, unspecified (3) Anxiety disorder, unspecified (4) Dementia, vascular, with depression (5) Dementia, vascular, with delusions (6) Dementia in Alzheimer's disease with depression (7) Dementia in Alzheimer's disease with delusions (8) Dementia of the Alzheimer's type with early onset with behavioral disturbance EMILY CHARLES MD Jan 08, 2021 08:31
--- NOTE | 2021-01-08 08:58 | PDOC ---
Exam Note: Earle Note: This note is a late entry for 01/07/2021 covers elements not covered in my initial note. Subjective: The patient was seen individually in the evening of 01/07/2021 with Catie APPIAH, discussed and reviewed the chart. The patient slept 6-3/4 hours previous night. She remains confused, somewhat anxious. Appetite is better. She is not aggressive. Review of Systems: Ambulation impaired. No CV, , pulmonary, eye system symptoms on review. Reliability poor. Mental Status Exam: The patient is oriented to herself. Insight and judgment, recent and remote memory, attention and concentration is poor consistent with her diagnoses. Laboratory Data: Reviewed. Impression: Major neurocognitive disorder Alzheimer vascular with delusion, depression, and behavioral disturbance. Anxiety disorder unspecified. Impulse control disorder unspecified. Plan: No change from initial note. Assessment: Vital Signs/I&O: Vital Signs Date Time Temp Pulse Resp B/P (MAP) Pulse Ox O2 Delivery O2 Flow Rate FiO2 01/08/21 06:10 97.4 62 16 119/71 (87) 96 01/05/21 16:13 Room Air I & O 01/07/21 01/07/21 01/08/21 15:00 23:00 07:00 Intake Total 600 ml 480 ml Balance 600 ml 480 ml Current Medications: Meds: Current Medications Medications (Trade) Dose Ordered Sig/Brianne Route PRN Reason Start Time Stop Time Status Last Admin Dose Admin Lorazepam (Ativan) 1 mg STK-MED ONCE .ROUTE 12/02/20 14:25 12/02/20 14:25 DC Lorazepam (Ativan) 1 mg 1X ONCE PO 12/02/20 14:30 12/02/20 14:36 DC 12/02/20 14:31 Potassium/ Phosphorus/Sodium (Phos-Nak) 1 pkt 1X ONCE PO 12/02/20 15:00 12/02/20 15:01 Cancel Potassium Bicarbonate (Potassium Effervescent Tablet) 20 meq STK-MED ONCE .ROUTE 12/02/20 14:56 12/02/20 14:57 DC Potassium Bicarbonate (Potassium Effervescent Tablet) 20 meq 1X ONCE PO 12/02/20 15:00 12/02/20 15:01 DC 12/02/20 15:00 Acetaminophen (Tylenol) 650 mg PRN Q6HRS PRN PO MILD PAIN / TEMP > 100.3'F 12/02/20 15:45 12/29/20 05:11 Multi-Ingredient Ointment (Analgesic [place]) 1 itz PRN QID PRN TP MUSCLE PAIN 12/02/20 15:45 Al Hydroxide/Mg Hydroxide (Mylanta Plus Xs) 15 ml PRN AFTMEALHC PRN PO DYSPEPSIA 12/02/20 15:45 Magnesium Hydroxide (Milk Of Magnesia) 2,400 mg PRN QHS PRN PO CONSTIPATION 12/02/20 15:45 12/03/20 16:29 Lisinopril (Prinivil) 10 mg DAILY PO 12/03/20 09:00 01/07/21 09:12 Multivitamins/ Calcium (Thera-M Plus) 1 tab DAILY PO 12/03/20 09:00 01/07/21 09:10 Olanzapine (ZyPREXA ZYDIS) 2.5 mg PRN Q2HRS PRN PO PSYCHOSIS 12/02/20 17:00 01/07/21 18:41 Potassium Chloride (Klor-Con) 20 meq DAILYWBKFT PO 12/04/20 08:00 01/07/21 09:11 Sertraline HCl (Zoloft) 25 mg DAILY PO 12/04/20 09:00 12/06/20 21:00 DC 12/06/20 08:17 Sertraline HCl (Zoloft) 50 mg DAILY PO 12/07/20 09:00 01/07/21 09:10 Quetiapine Fumarate (SEROquel) 12.5 mg 0900 PO 12/09/20 09:00 12/10/20 16:51 DC 12/10/20 09:00 Quetiapine Fumarate (SEROquel) 12.5 mg ONCE ONCE PO 12/08/20 17:15 12/08/20 17:16 DC 12/08/20 17:15 Quetiapine Fumarate (SEROquel) 12.5 mg 1700 PO 12/09/20 18:00 01/02/21 11:54 DC 01/01/21 17:00 Quetiapine Fumarate (SEROquel) 25 mg 0900 PO 12/11/20 09:00 01/07/21 09:10 Divalproex Sodium (Depakote Sprinkles) 125 mg BID PO 12/12/20 21:00 12/13/20 10:16 DC 12/13/20 08:35 Trazodone HCl (Desyrel) 50 mg PRN QHS PRN PO INSOMNIA 12/13/20 00:30 12/16/20 19:32 Divalproex Sodium (Depakote Sprinkles) 125 mg 0900,1700 PO 12/13/20 17:00 12/13/20 17:49 DC 12/13/20 16:35 Valproic Acid (Depakene) 125 mg 0900,1700 PO 12/14/20 09:00 12/17/20 15:35 DC 12/17/20 08:39 Valproic Acid (Depakene) 125 mg [id number] PO 12/17/20 21:00 12/23/20 16:57 DC 12/23/20 14:05 Valproic Acid (Depakene) 125 mg QID PO 12/23/20 17:00 01/02/21 11:54 DC 01/02/21 08:35 Hydroxyzine HCl (Atarax) 10 mg PRN Q2HR PRN PO ITCHING 12/29/20 20:15 01/01/21 16:21 Quetiapine Fumarate (SEROquel) 25 mg 1700 PO 01/02/21 17:00 01/07/21 17:19 Valproic Acid (Depakene) 125 mg 1300,1700 PO 01/02/21 13:00 01/07/21 17:19 Quetiapine Fumarate (SEROquel) 12.5 mg 1200 PO 01/02/21 12:00 01/07/21 12:04 Valproic Acid (Depakene) 250 mg 0900,2100 PO 01/02/21 21:00 01/07/21 21:06 I have reviewed the current psychotropics carefully including drug interactions. Risk benefit ratio favors no change other than as noted in my dictated progress note. Diagnosis: Problems: (1) Major neurocognitive disorder (2) Impulse control disorder, unspecified (3) Anxiety disorder, unspecified (4) Dementia, vascular, with depression (5) Dementia, vascular, with delusions (6) Dementia in Alzheimer's disease with depression (7) Dementia in Alzheimer's disease with delusions (8) Dementia of the Alzheimer's type with early onset with behavioral disturbance EMILY CHARLES MD Jan 08, 2021 08:58
[2021-01-08] MEDS: MULTIVITAMIN with MINERAL TABLET. PO SCH (09:01)
[2021-01-08] MEDS: SERTRALINE 50 MG TABLET. PO SCH (09:01)
[2021-01-08] MEDS: QUEtiapine 25 MG TABLET. PO SCH ×3 (09:01→17:00)
[2021-01-08] MEDS: LISINOPRIL 10 MG TABLET PO SCH (09:01)
[2021-01-08] MEDS: VALPROATE ACID 250 MG/5 ML ORAL SOLUTION PO SCH ×4 (09:01→20:03)
[2021-01-08 15:49] VITALS: BP 100/76
--- NOTE | 2021-01-08 22:28 | PDOC ---
Exam Note: Earle Note: Please also refer to the separate dictated note~for this date of service dictated separately.~Patient seen individually. Discussed the patient with Nursing staff reviewed the chart.~Reviewed interim history and current functioning. Reviewed vital signs,~Labs/ Radiology~and current medications noted below. Continue current treatment with the changes noted in the dictated addendum note Assessment: Vital Signs/I&O: Vital Signs Date Time Temp Pulse Resp B/P (MAP) Pulse Ox O2 Delivery O2 Flow Rate FiO2 01/08/21 15:49 98.1 66 18 100/76 (84) 98 01/05/21 16:13 Room Air I & O 01/07/21 01/07/21 01/08/21 15:00 23:00 07:00 Intake Total 600 ml 480 ml Balance 600 ml 480 ml Current Medications: Meds: Current Medications Medications (Trade) Dose Ordered Sig/Brianne Route PRN Reason Start Time Stop Time Status Last Admin Dose Admin Lorazepam (Ativan) 1 mg STK-MED ONCE .ROUTE 12/02/20 14:25 12/02/20 14:25 DC Lorazepam (Ativan) 1 mg 1X ONCE PO 12/02/20 14:30 12/02/20 14:36 DC 12/02/20 14:31 Potassium/ Phosphorus/Sodium (Phos-Nak) 1 pkt 1X ONCE PO 12/02/20 15:00 12/02/20 15:01 Cancel Potassium Bicarbonate (Potassium Effervescent Tablet) 20 meq STK-MED ONCE .ROUTE 12/02/20 14:56 12/02/20 14:57 DC Potassium Bicarbonate (Potassium Effervescent Tablet) 20 meq 1X ONCE PO 12/02/20 15:00 12/02/20 15:01 DC 12/02/20 15:00 Acetaminophen (Tylenol) 650 mg PRN Q6HRS PRN PO MILD PAIN / TEMP > 100.3'F 12/02/20 15:45 12/29/20 05:11 Multi-Ingredient Ointment (Analgesic [place]) 1 itz PRN QID PRN TP MUSCLE PAIN 12/02/20 15:45 Al Hydroxide/Mg Hydroxide (Mylanta Plus Xs) 15 ml PRN AFTMEALHC PRN PO DYSPEPSIA 12/02/20 15:45 Magnesium Hydroxide (Milk Of Magnesia) 2,400 mg PRN QHS PRN PO CONSTIPATION 12/02/20 15:45 12/03/20 16:29 Lisinopril (Prinivil) 10 mg DAILY PO 12/03/20 09:00 01/08/21 09:01 Multivitamins/ Calcium (Thera-M Plus) 1 tab DAILY PO 12/03/20 09:00 01/08/21 09:01 Olanzapine (ZyPREXA ZYDIS) 2.5 mg PRN Q2HRS PRN PO PSYCHOSIS 12/02/20 17:00 01/07/21 18:41 Potassium Chloride (Klor-Con) 20 meq DAILYWBKFT PO 12/04/20 08:00 01/08/21 08:00 Sertraline HCl (Zoloft) 25 mg DAILY PO 12/04/20 09:00 12/06/20 21:00 DC 12/06/20 08:17 Sertraline HCl (Zoloft) 50 mg DAILY PO 12/07/20 09:00 01/08/21 09:01 Quetiapine Fumarate (SEROquel) 12.5 mg 0900 PO 12/09/20 09:00 12/10/20 16:51 DC 12/10/20 09:00 Quetiapine Fumarate (SEROquel) 12.5 mg ONCE ONCE PO 12/08/20 17:15 12/08/20 17:16 DC 12/08/20 17:15 Quetiapine Fumarate (SEROquel) 12.5 mg 1700 PO 12/09/20 18:00 01/02/21 11:54 DC 01/01/21 17:00 Quetiapine Fumarate (SEROquel) 25 mg 0900 PO 12/11/20 09:00 01/08/21 09:01 Divalproex Sodium (Depakote Sprinkles) 125 mg BID PO 12/12/20 21:00 12/13/20 10:16 DC 12/13/20 08:35 Trazodone HCl (Desyrel) 50 mg PRN QHS PRN PO INSOMNIA 12/13/20 00:30 12/16/20 19:32 Divalproex Sodium (Depakote Sprinkles) 125 mg 0900,1700 PO 12/13/20 17:00 12/13/20 17:49 DC 12/13/20 16:35 Valproic Acid (Depakene) 125 mg 0900,1700 PO 12/14/20 09:00 12/17/20 15:35 DC 12/17/20 08:39 Valproic Acid (Depakene) 125 mg [id number] PO 12/17/20 21:00 12/23/20 16:57 DC 12/23/20 14:05 Valproic Acid (Depakene) 125 mg QID PO 12/23/20 17:00 01/02/21 11:54 DC 01/02/21 08:35 Hydroxyzine HCl (Atarax) 10 mg PRN Q2HR PRN PO ITCHING 12/29/20 20:15 01/01/21 16:21 Quetiapine Fumarate (SEROquel) 25 mg 1700 PO 01/02/21 17:00 01/07/21 17:19 Valproic Acid (Depakene) 125 mg 1300,1700 PO 01/02/21 13:00 01/08/21 17:35 Quetiapine Fumarate (SEROquel) 12.5 mg 1200 PO 01/02/21 12:00 01/08/21 12:10 Valproic Acid (Depakene) 250 mg 0900,2100 PO 01/02/21 21:00 01/08/21 20:03 I have reviewed the current psychotropics carefully including drug interactions. Risk benefit ratio favors no change other than as noted in my dictated progress note. Diagnosis: Problems: (1) Major neurocognitive disorder (2) Impulse control disorder, unspecified (3) Anxiety disorder, unspecified (4) Dementia, vascular, with depression (5) Dementia, vascular, with delusions (6) Dementia in Alzheimer's disease with depression (7) Dementia in Alzheimer's disease with delusions (8) Dementia of the Alzheimer's type with early onset with behavioral disturbance EMILY CHARLES MD Jan 08, 2021 22:28
[2021-01-09 05:53] VITALS: BP 119/77
[2021-01-09] MEDS: LISINOPRIL 10 MG TABLET PO SCH (08:30)
[2021-01-09] MEDS: VALPROATE ACID 250 MG/5 ML ORAL SOLUTION PO SCH ×4 (08:30→20:05)
[2021-01-09] MEDS: POTASSIUM CHLORIDE 20 MEQ TABLET.ER. PO SCH (08:30)
[2021-01-09] MEDS: MULTIVITAMIN with MINERAL TABLET. PO SCH (08:31)
[2021-01-09] MEDS: QUEtiapine 25 MG TABLET. PO SCH ×3 (08:31→17:00)
[2021-01-09] MEDS: SERTRALINE 50 MG TABLET. PO SCH (08:31)
--- NOTE | 2021-01-09 10:27 | TX PLAN ---
Interdisciplinary Tx Plan Admission Information Dec 02, 2020 at 15:25 Legal Status (on Admission): Voluntary DPOA/Guardian Name: Aron Razo Contact Other Contact Name: [facility] Other Contact Verified Code Status: DNR Allergies: Coded Allergies: No Known Drug Allergies (Unverified , 12/02/20) Diagnoses Primary Diagnosis: Major Neurocognitive D/O, Vascular Alzheimers with delusions and depression Reasons for Admission: Aggressive, Sig. Change Sleep, Combative, Confusion/Disoriented, Poor impulse control, Other Problem in Patient's Words: She has declined pretty quickly in the last 3 months. Additional Admission Comments: According to the intake, pt was biting, hitting staff at LT, throwing things, agitated, restless, wandering, attempts to elope, poor sleep, poor intake, throwing cups of water on LTC staff, attempted to elope out of the back door of [facility] ED during medical clearance. Problems Active Problems: restless wandering increased confusion Inactive Problems: medication compliance Pt Strengths/Limitations Ability for [place]: Poor Cognitive Functioning/Ability: Poor Communication Skills/Ability: Poor Financial Resources: Good Insight/Judgement: Poor Intellectual Ability: Poor Physical Health: Fair Social Skills: Fair Stability in Family: Good Stability in School/Work: Poor Verbal Skills: Poor Discharge Criteria Discharge Criteria: No need for close observ., Adequate arrangements @DC, Improved behavior, Improved mood/thought Preliminary Discharge Plan Preliminary DC Plan: Current Living Arrange. Initial D/C Plan Unknown at this time Identified Discharge Needs: Pt may bring pt home; unknown at this time. Currently Utilized Resources Currently Utilized Resources/P: Primary Care Physician Identified Problems/Hx/Goals Objectives/Short-Term Goals Short Term Goals: Dec. Aggression, Dec. Outbursts, Medication Stabilization, Monitor Med Effects, Promote Coping Skill Short Term Goals in Patient's: N/A Interventions/Frequency Staff Interventions/Frequency&: Psychiatrist to assess pt at least 3x per week for medication management. Social Wok to assess pt at least 2x per week to identify barriers to care and discharge planning. Nursing to assess medication effects, behavior modification and complete 15 minute checks. 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 Education: Pt did graduate high school (12th grade); attended [employer] in [place] with her B.A. in [place] degree. Community Follow-up Primary Care Physician Mental Health Services Treatment Plan Explained Patient/Door Puller had this treatment plan explained to him/her as indicated by the signature below and has been given the opportunity to ask questions and make suggestions: Date: Patient/Door Puller Signature: Status Update Update Pt , Aron participated in treatment team. Annetta is eating roughly 75% of meals and doing much better with meds. Pt continues to be disorganized and wanders but is redirectable. No aggression or agitated has been noted in the last 72 hours or more. Pt has participated in 4 groups this last week. Pt is pleasant with her peers and was even found joking with staff. Pt has been accepted to [facility] and will discharge on Wednesday. SW will continue to follow up with Aron and finalize discharge plans. HEDY BARRON Jan 09, 2021 10:27
[2021-01-09 15:57] VITALS: BP 102/59
[2021-01-09] MEDS: traZODone 50 MG TABLET. PO PRN (20:57)
--- NOTE | 2021-01-09 22:07 | PDOC ---
Exam Note: Earle Note: Please also refer to the separate dictated note~for this date of service dictated separately.~Patient seen individually. Discussed the patient with Nursing staff reviewed the chart.~Reviewed interim history and current functioning. Reviewed vital signs,~Labs/ Radiology~and current medications noted below. Continue current treatment with the changes noted in the dictated addendum note Assessment: Vital Signs/I&O: Vital Signs Date Time Temp Pulse Resp B/P (MAP) Pulse Ox O2 Delivery O2 Flow Rate FiO2 01/09/21 15:57 97.9 88 18 102/59 (73) 92 01/05/21 16:13 Room Air I & O 01/08/21 01/08/21 01/09/21 15:00 23:00 07:00 Intake Total 600 ml 25 ml Balance 600 ml 25 ml Current Medications: Meds: Current Medications Medications (Trade) Dose Ordered Sig/Brianne Route PRN Reason Start Time Stop Time Status Last Admin Dose Admin Lorazepam (Ativan) 1 mg STK-MED ONCE .ROUTE 12/02/20 14:25 12/02/20 14:25 DC Lorazepam (Ativan) 1 mg 1X ONCE PO 12/02/20 14:30 12/02/20 14:36 DC 12/02/20 14:31 Potassium/ Phosphorus/Sodium (Phos-Nak) 1 pkt 1X ONCE PO 12/02/20 15:00 12/02/20 15:01 Cancel Potassium Bicarbonate (Potassium Effervescent Tablet) 20 meq STK-MED ONCE .ROUTE 12/02/20 14:56 12/02/20 14:57 DC Potassium Bicarbonate (Potassium Effervescent Tablet) 20 meq 1X ONCE PO 12/02/20 15:00 12/02/20 15:01 DC 12/02/20 15:00 Acetaminophen (Tylenol) 650 mg PRN Q6HRS PRN PO MILD PAIN / TEMP > 100.3'F 12/02/20 15:45 12/29/20 05:11 Multi-Ingredient Ointment (Analgesic [place]) 1 itz PRN QID PRN TP MUSCLE PAIN 12/02/20 15:45 Al Hydroxide/Mg Hydroxide (Mylanta Plus Xs) 15 ml PRN AFTMEALHC PRN PO DYSPEPSIA 12/02/20 15:45 Magnesium Hydroxide (Milk Of Magnesia) 2,400 mg PRN QHS PRN PO CONSTIPATION 12/02/20 15:45 12/03/20 16:29 Lisinopril (Prinivil) 10 mg DAILY PO 12/03/20 09:00 01/09/21 08:30 Multivitamins/ Calcium (Thera-M Plus) 1 tab DAILY PO 12/03/20 09:00 01/09/21 08:31 Olanzapine (ZyPREXA ZYDIS) 2.5 mg PRN Q2HRS PRN PO PSYCHOSIS 12/02/20 17:00 01/07/21 18:41 Potassium Chloride (Klor-Con) 20 meq DAILYWBKFT PO 12/04/20 08:00 01/09/21 08:30 Sertraline HCl (Zoloft) 25 mg DAILY PO 12/04/20 09:00 12/06/20 21:00 DC 12/06/20 08:17 Sertraline HCl (Zoloft) 50 mg DAILY PO 12/07/20 09:00 01/09/21 08:31 Quetiapine Fumarate (SEROquel) 12.5 mg 0900 PO 12/09/20 09:00 12/10/20 16:51 DC 12/10/20 09:00 Quetiapine Fumarate (SEROquel) 12.5 mg ONCE ONCE PO 12/08/20 17:15 12/08/20 17:16 DC 12/08/20 17:15 Quetiapine Fumarate (SEROquel) 12.5 mg 1700 PO 12/09/20 18:00 01/02/21 11:54 DC 01/01/21 17:00 Quetiapine Fumarate (SEROquel) 25 mg 0900 PO 12/11/20 09:00 01/09/21 08:31 Divalproex Sodium (Depakote Sprinkles) 125 mg BID PO 12/12/20 21:00 12/13/20 10:16 DC 12/13/20 08:35 Trazodone HCl (Desyrel) 50 mg PRN QHS PRN PO INSOMNIA 12/13/20 00:30 01/09/21 20:57 Divalproex Sodium (Depakote Sprinkles) 125 mg 0900,1700 PO 12/13/20 17:00 12/13/20 17:49 DC 12/13/20 16:35 Valproic Acid (Depakene) 125 mg 0900,1700 PO 12/14/20 09:00 12/17/20 15:35 DC 12/17/20 08:39 Valproic Acid (Depakene) 125 mg [id number] PO 12/17/20 21:00 12/23/20 16:57 DC 12/23/20 14:05 Valproic Acid (Depakene) 125 mg QID PO 12/23/20 17:00 01/02/21 11:54 DC 01/02/21 08:35 Hydroxyzine HCl (Atarax) 10 mg PRN Q2HR PRN PO ITCHING 12/29/20 20:15 01/01/21 16:21 Quetiapine Fumarate (SEROquel) 25 mg 1700 PO 01/02/21 17:00 01/09/21 17:00 Valproic Acid (Depakene) 125 mg 1300,1700 PO 01/02/21 13:00 01/09/21 17:28 Quetiapine Fumarate (SEROquel) 12.5 mg 1200 PO 01/02/21 12:00 01/09/21 12:09 Valproic Acid (Depakene) 250 mg 0900,2100 PO 01/02/21 21:00 01/09/21 20:05 I have reviewed the current psychotropics carefully including drug interactions. Risk benefit ratio favors no change other than as noted in my dictated progress note. 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
[2021-01-10 07:00] VITALS: BP 114/72
[2021-01-10] MEDS: VALPROATE ACID 250 MG/5 ML ORAL SOLUTION PO SCH ×4 (08:31→20:42)
[2021-01-10] MEDS: SERTRALINE 50 MG TABLET. PO SCH (08:31)
[2021-01-10] MEDS: POTASSIUM CHLORIDE 20 MEQ TABLET.ER. PO SCH (08:32)
[2021-01-10] MEDS: LISINOPRIL 10 MG TABLET PO SCH (08:32)
[2021-01-10] MEDS: QUEtiapine 25 MG TABLET. PO SCH ×3 (08:32→16:48)
[2021-01-10] MEDS: MULTIVITAMIN with MINERAL TABLET. PO SCH (08:32)
--- NOTE | 2021-01-10 08:52 | PDOC ---
Exam Note: Earle Note: This note is a late entry for 01/08/2021 covers elements not covered in my initial note. Subjective: The patient was seen individually in the evening of 01/08/2021 with Catie APPIAH, discussed and reviewed the chart. The patient slept 7-1/2 hours previous night. The patient has been confused, delusional, tearful, wandering the hallways. He is less aggressive, disruptive, more redirectable. Review of Systems: Ambulation impaired. No CV, , pulmonary, eye system symptoms on review. Reliability poor. Mental Status Exam: The patient is oriented to herself. Insight and judgment, recent and remote memory, attention and concentration is poor consistent with her diagnoses. Laboratory Data: Reviewed. Impression: Major neurocognitive disorder Alzheimer vascular with delusion, depression, and behavioral disturbance. Anxiety disorder unspecified. Impulse control disorder unspecified. Plan: No change from initial note. Assessment: Vital Signs/I&O: Vital Signs Date Time Temp Pulse Resp B/P (MAP) Pulse Ox O2 Delivery O2 Flow Rate FiO2 01/10/21 08:32 61 114/72 01/10/21 07:00 97.9 16 99 Room Air I & O 01/09/21 01/09/21 01/10/21 15:00 23:00 07:00 Intake Total 720 ml 600 ml Balance 720 ml 600 ml Current Medications: Meds: Current Medications Medications (Trade) Dose Ordered Sig/Brianne Route PRN Reason Start Time Stop Time Status Last Admin Dose Admin Lorazepam (Ativan) 1 mg STK-MED ONCE .ROUTE 12/02/20 14:25 12/02/20 14:25 DC Lorazepam (Ativan) 1 mg 1X ONCE PO 12/02/20 14:30 12/02/20 14:36 DC 12/02/20 14:31 Potassium/ Phosphorus/Sodium (Phos-Nak) 1 pkt 1X ONCE PO 12/02/20 15:00 12/02/20 15:01 Cancel Potassium Bicarbonate (Potassium Effervescent Tablet) 20 meq STK-MED ONCE .ROUTE 12/02/20 14:56 12/02/20 14:57 DC Potassium Bicarbonate (Potassium Effervescent Tablet) 20 meq 1X ONCE PO 12/02/20 15:00 12/02/20 15:01 DC 12/02/20 15:00 Acetaminophen (Tylenol) 650 mg PRN Q6HRS PRN PO MILD PAIN / TEMP > 100.3'F 12/02/20 15:45 12/29/20 05:11 Multi-Ingredient Ointment (Analgesic [place]) 1 itz PRN QID PRN TP MUSCLE PAIN 12/02/20 15:45 Al Hydroxide/Mg Hydroxide (Mylanta Plus Xs) 15 ml PRN AFTMEALHC PRN PO DYSPEPSIA 12/02/20 15:45 Magnesium Hydroxide (Milk Of Magnesia) 2,400 mg PRN QHS PRN PO CONSTIPATION 12/02/20 15:45 12/03/20 16:29 Lisinopril (Prinivil) 10 mg DAILY PO 12/03/20 09:00 01/10/21 08:32 Multivitamins/ Calcium (Thera-M Plus) 1 tab DAILY PO 12/03/20 09:00 01/10/21 08:32 Olanzapine (ZyPREXA ZYDIS) 2.5 mg PRN Q2HRS PRN PO PSYCHOSIS 12/02/20 17:00 01/07/21 18:41 Potassium Chloride (Klor-Con) 20 meq DAILYWBKFT PO 12/04/20 08:00 01/10/21 08:32 Sertraline HCl (Zoloft) 25 mg DAILY PO 12/04/20 09:00 12/06/20 21:00 DC 12/06/20 08:17 Sertraline HCl (Zoloft) 50 mg DAILY PO 12/07/20 09:00 01/10/21 08:31 Quetiapine Fumarate (SEROquel) 12.5 mg 0900 PO 12/09/20 09:00 12/10/20 16:51 DC 12/10/20 09:00 Quetiapine Fumarate (SEROquel) 12.5 mg ONCE ONCE PO 12/08/20 17:15 12/08/20 17:16 DC 12/08/20 17:15 Quetiapine Fumarate (SEROquel) 12.5 mg 1700 PO 12/09/20 18:00 01/02/21 11:54 DC 01/01/21 17:00 Quetiapine Fumarate (SEROquel) 25 mg 0900 PO 12/11/20 09:00 01/10/21 08:32 Divalproex Sodium (Depakote Sprinkles) 125 mg BID PO 12/12/20 21:00 12/13/20 10:16 DC 12/13/20 08:35 Trazodone HCl (Desyrel) 50 mg PRN QHS PRN PO INSOMNIA 12/13/20 00:30 01/09/21 20:57 Divalproex Sodium (Depakote Sprinkles) 125 mg 0900,1700 PO 12/13/20 17:00 12/13/20 17:49 DC 12/13/20 16:35 Valproic Acid (Depakene) 125 mg 0900,1700 PO 12/14/20 09:00 12/17/20 15:35 DC 12/17/20 08:39 Valproic Acid (Depakene) 125 mg [id number] PO 12/17/20 21:00 12/23/20 16:57 DC 12/23/20 14:05 Valproic Acid (Depakene) 125 mg QID PO 12/23/20 17:00 01/02/21 11:54 DC 01/02/21 08:35 Hydroxyzine HCl (Atarax) 10 mg PRN Q2HR PRN PO ITCHING 12/29/20 20:15 01/01/21 16:21 Quetiapine Fumarate (SEROquel) 25 mg 1700 PO 01/02/21 17:00 01/09/21 17:00 Valproic Acid (Depakene) 125 mg 1300,1700 PO 01/02/21 13:00 01/09/21 17:28 Quetiapine Fumarate (SEROquel) 12.5 mg 1200 PO 01/02/21 12:00 01/09/21 12:09 Valproic Acid (Depakene) 250 mg 0900,2100 PO 01/02/21 21:00 01/10/21 08:31 I have reviewed the current psychotropics carefully including drug interactions. Risk benefit ratio favors no change other than as noted in my dictated progress note. 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
--- NOTE | 2021-01-10 09:26 | PDOC ---
Exam Note: Earle Note: This note is a late entry for 01/09/2021 covers elements not covered in my initial note. Subjective: The patient was seen individually in the morning of 01/09/2021 for a treatment team meeting with Maryana Rice, Cathy Hargrove (health and social care teacher), Elizabeth, activity therapy and Catie APPIAH, discussed and reviewed the chart. The patient slept 7 hours previous night. The patients Aron attended the meeting. She remains on finger foods. 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 She has been accepted at [facility]. I had a lengthy discussion regarding the patients diagnoses, current psychotropics with the patients . Review of Systems: Ambulation impaired. No CV, , pulmonary, eye system symptoms on review. Reliability poor. Mental Status Exam: The patient is oriented to herself. Insight and judgment, recent and remote memory, attention and concentration is poor consistent with her diagnoses. Laboratory Data: Reviewed. Impression: Major neurocognitive disorder Alzheimer vascular with delusion, depression, and behavioral disturbance. Anxiety disorder unspecified. Impulse control disorder unspecified. Plan: No change from initial note. Assessment: Vital Signs/I&O: Vital Signs Date Time Temp Pulse Resp B/P (MAP) Pulse Ox O2 Delivery O2 Flow Rate FiO2 01/10/21 08:32 61 114/72 01/10/21 07:00 97.9 16 99 Room Air I & O 01/09/21 01/09/21 01/10/21 15:00 23:00 07:00 Intake Total 720 ml 600 ml Balance 720 ml 600 ml Current Medications: Meds: Current Medications Medications (Trade) Dose Ordered Sig/Brianne Route PRN Reason Start Time Stop Time Status Last Admin Dose Admin Lorazepam (Ativan) 1 mg STK-MED ONCE .ROUTE 12/02/20 14:25 12/02/20 14:25 DC Lorazepam (Ativan) 1 mg 1X ONCE PO 12/02/20 14:30 12/02/20 14:36 DC 12/02/20 14:31 Potassium/ Phosphorus/Sodium (Phos-Nak) 1 pkt 1X ONCE PO 12/02/20 15:00 12/02/20 15:01 Cancel Potassium Bicarbonate (Potassium Effervescent Tablet) 20 meq STK-MED ONCE .ROUTE 12/02/20 14:56 12/02/20 14:57 DC Potassium Bicarbonate (Potassium Effervescent Tablet) 20 meq 1X ONCE PO 12/02/20 15:00 12/02/20 15:01 DC 12/02/20 15:00 Acetaminophen (Tylenol) 650 mg PRN Q6HRS PRN PO MILD PAIN / TEMP > 100.3'F 12/02/20 15:45 12/29/20 05:11 Multi-Ingredient Ointment (Analgesic [place]) 1 itz PRN QID PRN TP MUSCLE PAIN 12/02/20 15:45 Al Hydroxide/Mg Hydroxide (Mylanta Plus Xs) 15 ml PRN AFTMEALHC PRN PO DYSPEPSIA 12/02/20 15:45 Magnesium Hydroxide (Milk Of Magnesia) 2,400 mg PRN QHS PRN PO CONSTIPATION 12/02/20 15:45 12/03/20 16:29 Lisinopril (Prinivil) 10 mg DAILY PO 12/03/20 09:00 01/10/21 08:32 Multivitamins/ Calcium (Thera-M Plus) 1 tab DAILY PO 12/03/20 09:00 01/10/21 08:32 Olanzapine (ZyPREXA ZYDIS) 2.5 mg PRN Q2HRS PRN PO PSYCHOSIS 12/02/20 17:00 01/07/21 18:41 Potassium Chloride (Klor-Con) 20 meq DAILYWBKFT PO 12/04/20 08:00 01/10/21 08:32 Sertraline HCl (Zoloft) 25 mg DAILY PO 12/04/20 09:00 12/06/20 21:00 DC 12/06/20 08:17 Sertraline HCl (Zoloft) 50 mg DAILY PO 12/07/20 09:00 01/10/21 08:31 Quetiapine Fumarate (SEROquel) 12.5 mg 0900 PO 12/09/20 09:00 12/10/20 16:51 DC 12/10/20 09:00 Quetiapine Fumarate (SEROquel) 12.5 mg ONCE ONCE PO 12/08/20 17:15 12/08/20 17:16 DC 12/08/20 17:15 Quetiapine Fumarate (SEROquel) 12.5 mg 1700 PO 12/09/20 18:00 7/15/21 11:54 DC 01/01/21 17:00 Quetiapine Fumarate (SEROquel) 25 mg 0900 PO 12/11/20 09:00 01/10/21 08:32 Divalproex Sodium (Depakote Sprinkles) 125 mg BID PO 12/12/20 21:00 12/13/20 10:16 DC 12/13/20 08:35 Trazodone HCl (Desyrel) 50 mg PRN QHS PRN PO INSOMNIA 12/13/20 00:30 01/09/21 20:57 Divalproex Sodium (Depakote Sprinkles) 125 mg 0900,1700 PO 12/13/20 17:00 12/13/20 17:49 DC 12/13/20 16:35 Valproic Acid (Depakene) 125 mg 0900,1700 PO 12/14/20 09:00 12/17/20 15:35 DC 12/17/20 08:39 Valproic Acid (Depakene) 125 mg [id number] PO 12/17/20 21:00 12/23/20 16:57 DC 12/23/20 14:05 Valproic Acid (Depakene) 125 mg QID PO 12/23/20 17:00 01/02/21 11:54 DC 01/02/21 08:35 Hydroxyzine HCl (Atarax) 10 mg PRN Q2HR PRN PO ITCHING 12/29/20 20:15 01/01/21 16:21 Quetiapine Fumarate (SEROquel) 25 mg 1700 PO 01/02/21 17:00 01/09/21 17:00 Valproic Acid (Depakene) 125 mg 1300,1700 PO 01/02/21 13:00 01/09/21 17:28 Quetiapine Fumarate (SEROquel) 12.5 mg 1200 PO 01/02/21 12:00 01/09/21 12:09 Valproic Acid (Depakene) 250 mg 0900,2100 PO 01/02/21 21:00 01/10/21 08:31 I have reviewed the current psychotropics carefully including drug interactions. Risk benefit ratio favors no change other than as noted in my dictated progress note. Diagnosis: Problems: (1) Major neurocognitive disorder (2) Impulse control disorder, unspecified (3) Anxiety disorder, unspecified (4) Dementia, vascular, with depression (5) Dementia, vascular, with delusions (6) Dementia in Alzheimer's disease with depression (7) Dementia in Alzheimer's disease with delusions (8) Dementia of the Alzheimer's type with early onset with behavioral disturbance EMILY CHARLES MD Jan 10, 2021 09:26
[2021-01-10 16:08] VITALS: BP 94/63
--- NOTE | 2021-01-10 22:12 | PDOC ---
Exam Note: Earle Note: Please also refer to the separate dictated note~for this date of service dictated separately.~Patient seen individually. Discussed the patient with Nursing staff reviewed the chart.~Reviewed interim history and current functioning. Reviewed vital signs,~Labs/ Radiology~and current medications noted below. Continue current treatment with the changes noted in the dictated addendum note Assessment: Vital Signs/I&O: Vital Signs Date Time Temp Pulse Resp B/P (MAP) Pulse Ox O2 Delivery O2 Flow Rate FiO2 01/10/21 16:08 98.4 78 18 94/63 (73) 95 01/10/21 07:00 Room Air I & O 01/09/21 01/09/21 01/10/21 14:59 22:59 06:59 Intake Total 720 ml 600 ml Balance 720 ml 600 ml Current Medications: Meds: Current Medications Medications (Trade) Dose Ordered Sig/Brianne Route PRN Reason Start Time Stop Time Status Last Admin Dose Admin Lorazepam (Ativan) 1 mg STK-MED ONCE .ROUTE 12/02/20 14:25 12/02/20 14:25 DC Lorazepam (Ativan) 1 mg 1X ONCE PO 12/02/20 14:30 12/02/20 14:36 DC 12/02/20 14:31 Potassium/ Phosphorus/Sodium (Phos-Nak) 1 pkt 1X ONCE PO 12/02/20 15:00 12/02/20 15:01 Cancel Potassium Bicarbonate (Potassium Effervescent Tablet) 20 meq STK-MED ONCE .ROUTE 12/02/20 14:56 12/02/20 14:57 DC Potassium Bicarbonate (Potassium Effervescent Tablet) 20 meq 1X ONCE PO 12/02/20 15:00 12/02/20 15:01 DC 12/02/20 15:00 Acetaminophen (Tylenol) 650 mg PRN Q6HRS PRN PO MILD PAIN / TEMP > 100.3'F 12/02/20 15:45 12/29/20 05:11 Multi-Ingredient Ointment (Analgesic [place]) 1 itz PRN QID PRN TP MUSCLE PAIN 12/02/20 15:45 Al Hydroxide/Mg Hydroxide (Mylanta Plus Xs) 15 ml PRN AFTMEALHC PRN PO DYSPEPSIA 12/02/20 15:45 Magnesium Hydroxide (Milk Of Magnesia) 2,400 mg PRN QHS PRN PO CONSTIPATION 12/02/20 15:45 12/03/20 16:29 Lisinopril (Prinivil) 10 mg DAILY PO 12/03/20 09:00 01/10/21 08:32 Multivitamins/ Calcium (Thera-M Plus) 1 tab DAILY PO 12/03/20 09:00 01/10/21 08:32 Olanzapine (ZyPREXA ZYDIS) 2.5 mg PRN Q2HRS PRN PO PSYCHOSIS 12/02/20 17:00 01/07/21 18:41 Potassium Chloride (Klor-Con) 20 meq DAILYWBKFT PO 12/04/20 08:00 01/10/21 08:32 Sertraline HCl (Zoloft) 25 mg DAILY PO 12/04/20 09:00 12/06/20 21:00 DC 12/06/20 08:17 Sertraline HCl (Zoloft) 50 mg DAILY PO 12/07/20 09:00 01/10/21 08:31 Quetiapine Fumarate (SEROquel) 12.5 mg 0900 PO 12/09/20 09:00 12/10/20 16:51 DC 12/10/20 09:00 Quetiapine Fumarate (SEROquel) 12.5 mg ONCE ONCE PO 12/08/20 17:15 12/08/20 17:16 DC 12/08/20 17:15 Quetiapine Fumarate (SEROquel) 12.5 mg 1700 PO 12/09/20 18:00 01/02/21 11:54 DC 01/01/21 17:00 Quetiapine Fumarate (SEROquel) 25 mg 0900 PO 12/11/20 09:00 01/10/21 08:32 Divalproex Sodium (Depakote Sprinkles) 125 mg BID PO 12/12/20 21:00 12/13/20 10:16 DC 12/13/20 08:35 Trazodone HCl (Desyrel) 50 mg PRN QHS PRN PO INSOMNIA 12/13/20 00:30 01/09/21 20:57 Divalproex Sodium (Depakote Sprinkles) 125 mg 0900,1700 PO 12/13/20 17:00 12/13/20 17:49 DC 12/13/20 16:35 Valproic Acid (Depakene) 125 mg 0900,1700 PO 12/14/20 09:00 12/17/20 15:35 DC 12/17/20 08:39 Valproic Acid (Depakene) 125 mg [id number] PO 12/17/20 21:00 12/23/20 16:57 DC 12/23/20 14:05 Valproic Acid (Depakene) 125 mg QID PO 12/23/20 17:00 01/02/21 11:54 DC 01/02/21 08:35 Hydroxyzine HCl (Atarax) 10 mg PRN Q2HR PRN PO ITCHING 12/29/20 20:15 01/01/21 16:21 Quetiapine Fumarate (SEROquel) 25 mg 1700 PO 01/02/21 17:00 01/10/21 16:48 Valproic Acid (Depakene) 125 mg 1300,1700 PO 01/02/21 13:00 01/10/21 16:50 Quetiapine Fumarate (SEROquel) 12.5 mg 1200 PO 01/02/21 12:00 01/10/21 12:13 Valproic Acid (Depakene) 250 mg 0900,2100 PO 01/02/21 21:00 01/10/21 20:42 I have reviewed the current psychotropics carefully including drug interactions. Risk benefit ratio favors no change other than as noted in my dictated progress note. Diagnosis: Problems: (1) Major neurocognitive disorder (2) Impulse control disorder, unspecified (3) Anxiety disorder, unspecified (4) Dementia, vascular, with depression (5) Dementia, vascular, with delusions (6) Dementia in Alzheimer's disease with depression (7) Dementia in Alzheimer's disease with delusions (8) Dementia of the Alzheimer's type with early onset with behavioral disturbance EMILY CHARLES MD Jan 10, 2021 22:12
[2021-01-11] MEDS: hydrOXYzine HCL 10 MG TABLET PO PRN (01:31)
[2021-01-11] MEDS: traZODone 50 MG TABLET. PO PRN (01:31)
[2021-01-11 05:37] VITALS: BP 115/74
[2021-01-11] MEDS: VALPROATE ACID 250 MG/5 ML ORAL SOLUTION PO SCH ×4 (08:37→20:05)
[2021-01-11] MEDS: MULTIVITAMIN with MINERAL TABLET. PO SCH (08:37)
[2021-01-11] MEDS: QUEtiapine 25 MG TABLET. PO SCH ×3 (08:37→17:31)
[2021-01-11] MEDS: POTASSIUM CHLORIDE 20 MEQ TABLET.ER. PO SCH (08:38)
[2021-01-11] MEDS: LISINOPRIL 10 MG TABLET PO SCH (08:38)
[2021-01-11] MEDS: SERTRALINE 50 MG TABLET. PO SCH (08:38)
[2021-01-11 15:55] VITALS: BP 121/74
--- NOTE | 2021-01-11 22:06 | PDOC ---
Exam Note: Earle Note: Please also refer to the separate dictated note~for this date of service dictated separately.~Patient seen individually. Discussed the patient with Nursing staff reviewed the chart.~Reviewed interim history and current functioning. Reviewed vital signs,~Labs/ Radiology~and current medications noted below. Continue current treatment with the changes noted in the dictated addendum note Assessment: Vital Signs/I&O: Vital Signs Date Time Temp Pulse Resp B/P (MAP) Pulse Ox O2 Delivery O2 Flow Rate FiO2 01/11/21 15:55 97.3 69 18 121/74 (90) 95 01/10/21 07:00 Room Air I & O 01/10/21 01/10/21 01/11/21 15:00 23:00 07:00 Intake Total 480 ml 360 ml Balance 480 ml 360 ml Current Medications: Meds: Current Medications Medications (Trade) Dose Ordered Sig/Brianne Route PRN Reason Start Time Stop Time Status Last Admin Dose Admin Lorazepam (Ativan) 1 mg STK-MED ONCE .ROUTE 12/02/20 14:25 12/02/20 14:25 DC Lorazepam (Ativan) 1 mg 1X ONCE PO 12/02/20 14:30 12/02/20 14:36 DC 12/02/20 14:31 Potassium/ Phosphorus/Sodium (Phos-Nak) 1 pkt 1X ONCE PO 12/02/20 15:00 12/02/20 15:01 Cancel Potassium Bicarbonate (Potassium Effervescent Tablet) 20 meq STK-MED ONCE .ROUTE 12/02/20 14:56 12/02/20 14:57 DC Potassium Bicarbonate (Potassium Effervescent Tablet) 20 meq 1X ONCE PO 12/02/20 15:00 12/02/20 15:01 DC 12/02/20 15:00 Acetaminophen (Tylenol) 650 mg PRN Q6HRS PRN PO MILD PAIN / TEMP > 100.3'F 12/02/20 15:45 12/29/20 05:11 Multi-Ingredient Ointment (Analgesic [place]) 1 itz PRN QID PRN TP MUSCLE PAIN 12/02/20 15:45 Al Hydroxide/Mg Hydroxide (Mylanta Plus Xs) 15 ml PRN AFTMEALHC PRN PO DYSPEPSIA 12/02/20 15:45 Magnesium Hydroxide (Milk Of Magnesia) 2,400 mg PRN QHS PRN PO CONSTIPATION 12/02/20 15:45 12/03/20 16:29 Lisinopril (Prinivil) 10 mg DAILY PO 12/03/20 09:00 01/11/21 08:38 Multivitamins/ Calcium (Thera-M Plus) 1 tab DAILY PO 12/03/20 09:00 01/11/21 08:37 Olanzapine (ZyPREXA ZYDIS) 2.5 mg PRN Q2HRS PRN PO PSYCHOSIS 12/02/20 17:00 01/07/21 18:41 Potassium Chloride (Klor-Con) 20 meq DAILYWBKFT PO 12/04/20 08:00 01/11/21 08:38 Sertraline HCl (Zoloft) 25 mg DAILY PO 12/04/20 09:00 12/06/20 21:00 DC 12/06/20 08:17 Sertraline HCl (Zoloft) 50 mg DAILY PO 12/07/20 09:00 01/11/21 08:38 Quetiapine Fumarate (SEROquel) 12.5 mg 0900 PO 12/09/20 09:00 12/10/20 16:51 DC 12/10/20 09:00 Quetiapine Fumarate (SEROquel) 12.5 mg ONCE ONCE PO 12/08/20 17:15 12/08/20 17:16 DC 12/08/20 17:15 Quetiapine Fumarate (SEROquel) 12.5 mg 1700 PO 12/09/20 18:00 01/02/21 11:54 DC 01/01/21 17:00 Quetiapine Fumarate (SEROquel) 25 mg 0900 PO 12/11/20 09:00 01/11/21 08:37 Divalproex Sodium (Depakote Sprinkles) 125 mg BID PO 12/12/20 21:00 12/13/20 10:16 DC 12/13/20 08:35 Trazodone HCl (Desyrel) 50 mg PRN QHS PRN PO INSOMNIA 12/13/20 00:30 01/11/21 01:31 Divalproex Sodium (Depakote Sprinkles) 125 mg 0900,1700 PO 12/13/20 17:00 12/13/20 17:49 DC 12/13/20 16:35 Valproic Acid (Depakene) 125 mg 0900,1700 PO 12/14/20 09:00 12/17/20 15:35 DC 12/17/20 08:39 Valproic Acid (Depakene) 125 mg [id number] PO 12/17/20 21:00 12/23/20 16:57 DC 12/23/20 14:05 Valproic Acid (Depakene) 125 mg QID PO 12/23/20 17:00 01/02/21 11:54 DC 01/02/21 08:35 Hydroxyzine HCl (Atarax) 10 mg PRN Q2HR PRN PO ITCHING 12/29/20 20:15 01/11/21 01:31 Quetiapine Fumarate (SEROquel) 25 mg 1700 PO 01/02/21 17:00 01/11/21 17:31 Valproic Acid (Depakene) 125 mg 1300,1700 PO 01/02/21 13:00 01/11/21 17:00 Quetiapine Fumarate (SEROquel) 12.5 mg 1200 PO 01/02/21 12:00 01/11/21 12:48 Valproic Acid (Depakene) 250 mg 0900,2100 PO 01/02/21 21:00 01/11/21 20:05 I have reviewed the current psychotropics carefully including drug interactions. Risk benefit ratio favors no change other than as noted in my dictated progress note. Diagnosis: Problems: (1) Major neurocognitive disorder (2) Impulse control disorder, unspecified (3) Anxiety disorder, unspecified (4) Dementia, vascular, with depression (5) Dementia, vascular, with delusions (6) Dementia in Alzheimer's disease with depression (7) Dementia in Alzheimer's disease with delusions (8) Dementia of the Alzheimer's type with early onset with behavioral disturbance EMILY CHARLES MD Jan 11, 2021 22:06
[2021-01-12] MEDS: QUEtiapine 25 MG TABLET. PO SCH ×3 (04:40→17:25)
[2021-01-12] MEDS: MULTIVITAMIN with MINERAL TABLET. PO SCH (04:40)
[2021-01-12] MEDS: VALPROATE ACID 250 MG/5 ML ORAL SOLUTION PO SCH ×4 (04:40→19:49)
[2021-01-12] MEDS: POTASSIUM CHLORIDE 20 MEQ TABLET.ER. PO SCH (04:40)
[2021-01-12] MEDS: SERTRALINE 50 MG TABLET. PO SCH (04:40)
[2021-01-12] MEDS: LISINOPRIL 10 MG TABLET PO SCH (04:41)
[2021-01-12 06:28] VITALS: BP 123/64
--- NOTE | 2021-01-12 08:14 | PDOC ---
Exam Note: Earle Note: This note is a late entry for 01/10/2021 covers elements not covered in my initial note. Subjective: The patient was reviewed on telehealth rounds on 01/10/2021 due to the COVID-19 pandemic. There have been 3 patients on the unit that have turned up positive today, 01/10 and they are being transitioned to the [facility] floor per Dr. Baldwin. There have also been 2 staff members that have turned up positive for COVID-19 and all the patients are going to be tested weekly for the COVID-19 along with every staff member going forward. I had not had the opportunity to be tested myself and will await completing this before considering [id number] rounds on the unit. Discussed with Lisa APPIAH and reviewed the chart. The patient slept 7 hours previous night. She has been calm, confused, pleasant in the evening. Review of Systems: Ambulation impaired. No CV, , pulmonary, eye system symptoms on review. Mental Status Exam: The patient is oriented to herself. Insight and judgment, recent and remote memory, attention and concentration is poor consistent with her diagnoses. Laboratory Data: Reviewed. Impression: Major neurocognitive disorder Alzheimer vascular with delusion, depression, and behavioral disturbance. Anxiety disorder unspecified. Impulse control disorder unspecified. Plan: No change from initial note. Assessment: Vital Signs/I&O: Vital Signs Date Time Temp Pulse Resp B/P (MAP) Pulse Ox O2 Delivery O2 Flow Rate FiO2 01/12/21 06:28 97.5 66 16 123/64 (83) 98 01/10/21 07:00 Room Air I & O 01/11/21 01/11/21 01/12/21 14:59 22:59 06:59 Intake Total 480 ml 600 ml Balance 480 ml 600 ml Current Medications: Meds: Current Medications Medications (Trade) Dose Ordered Sig/Brianne Route PRN Reason Start Time Stop Time Status Last Admin Dose Admin Lorazepam (Ativan) 1 mg STK-MED ONCE .ROUTE 12/02/20 14:25 12/02/20 14:25 DC Lorazepam (Ativan) 1 mg 1X ONCE PO 12/02/20 14:30 12/02/20 14:36 DC 12/02/20 14:31 Potassium/ Phosphorus/Sodium (Phos-Nak) 1 pkt 1X ONCE PO 12/02/20 15:00 6/14/21 15:01 Cancel Potassium Bicarbonate (Potassium Effervescent Tablet) 20 meq STK-MED ONCE .ROUTE 12/02/20 14:56 12/02/20 14:57 DC Potassium Bicarbonate (Potassium Effervescent Tablet) 20 meq 1X ONCE PO 12/02/20 15:00 12/02/20 15:01 DC 12/02/20 15:00 Acetaminophen (Tylenol) 650 mg PRN Q6HRS PRN PO MILD PAIN / TEMP > 100.3'F 12/02/20 15:45 12/29/20 05:11 Multi-Ingredient Ointment (Analgesic [place]) 1 itz PRN QID PRN TP MUSCLE PAIN 12/02/20 15:45 Al Hydroxide/Mg Hydroxide (Mylanta Plus Xs) 15 ml PRN AFTMEALHC PRN PO DYSPEPSIA 12/02/20 15:45 Magnesium Hydroxide (Milk Of Magnesia) 2,400 mg PRN QHS PRN PO CONSTIPATION 12/02/20 15:45 12/03/20 16:29 Lisinopril (Prinivil) 10 mg DAILY PO 12/03/20 09:00 01/12/21 04:41 Multivitamins/ Calcium (Thera-M Plus) 1 tab DAILY PO 12/03/20 09:00 01/12/21 04:40 Olanzapine (ZyPREXA ZYDIS) 2.5 mg PRN Q2HRS PRN PO PSYCHOSIS 12/02/20 17:00 01/07/21 18:41 Potassium Chloride (Klor-Con) 20 meq DAILYWBKFT PO 12/04/20 08:00 01/12/21 04:40 Sertraline HCl (Zoloft) 25 mg DAILY PO 12/04/20 09:00 12/06/20 21:00 DC 12/06/20 08:17 Sertraline HCl (Zoloft) 50 mg DAILY PO 12/07/20 09:00 01/12/21 04:40 Quetiapine Fumarate (SEROquel) 12.5 mg 0900 PO 12/09/20 09:00 12/10/20 16:51 DC 12/10/20 09:00 Quetiapine Fumarate (SEROquel) 12.5 mg ONCE ONCE PO 12/08/20 17:15 12/08/20 17:16 DC 12/08/20 17:15 Quetiapine Fumarate (SEROquel) 12.5 mg 1700 PO 12/09/20 18:00 01/02/21 11:54 DC 01/01/21 17:00 Quetiapine Fumarate (SEROquel) 25 mg 0900 PO 12/11/20 09:00 01/12/21 04:40 Divalproex Sodium (Depakote Sprinkles) 125 mg BID PO 12/12/20 21:00 12/13/20 10:16 DC 12/13/20 08:35 Trazodone HCl (Desyrel) 50 mg PRN QHS PRN PO INSOMNIA 12/13/20 00:30 01/11/21 01:31 Divalproex Sodium (Depakote Sprinkles) 125 mg 0900,1700 PO 12/13/20 17:00 12/13/20 17:49 DC 12/13/20 16:35 Valproic Acid (Depakene) 125 mg 0900,1700 PO 12/14/20 09:00 12/17/20 15:35 DC 12/17/20 08:39 Valproic Acid (Depakene) 125 mg [id number] PO 12/17/20 21:00 12/23/20 16:57 DC 12/23/20 14:05 Valproic Acid (Depakene) 125 mg QID PO 12/23/20 17:00 01/02/21 11:54 DC 01/02/21 08:35 Hydroxyzine HCl (Atarax) 10 mg PRN Q2HR PRN PO ITCHING 12/29/20 20:15 01/11/21 01:31 Quetiapine Fumarate (SEROquel) 25 mg 1700 PO 01/02/21 17:00 01/11/21 17:31 Valproic Acid (Depakene) 125 mg 1300,1700 PO 01/02/21 13:00 01/11/21 17:00 Quetiapine Fumarate (SEROquel) 12.5 mg 1200 PO 01/02/21 12:00 01/11/21 12:48 Valproic Acid (Depakene) 250 mg 0900,2100 PO 01/02/21 21:00 01/12/21 04:40 I have reviewed the current psychotropics carefully including drug interactions. Risk benefit ratio favors no change other than as noted in my dictated progress note. Diagnosis: Problems: (1) Major neurocognitive disorder (2) Impulse control disorder, unspecified (3) Anxiety disorder, unspecified (4) Dementia, vascular, with depression (5) Dementia, vascular, with delusions (6) Dementia in Alzheimer's disease with depression (7) Dementia in Alzheimer's disease with delusions (8) Dementia of the Alzheimer's type with early onset with behavioral disturbance EMILY CHARLES MD Jan 12, 2021 08:14
--- NOTE | 2021-01-12 08:53 | PDOC ---
Exam Note: Earle Note: This note is a late entry for 01/11/2021 covers elements not covered in my initial note. Subjective: The patient was reviewed on telehealth rounds on 01/11/2021 due to the COVID-19 pandemic. Discussed with Santana APPIAH and reviewed the chart. The patient slept 5-3/4 hours previous night. The patient is compliant with medications. She was up middle of last night, got trazodone at 1.25 a.m. and slept into the early hours of the morning today. She is compliant with medications, somewhat tired, more drowsy. Review of Systems: Ambulation impaired. No CV, , pulmonary, eye system symptoms on review. Mental Status Exam: The patient is oriented to herself. Insight and judgment, recent and remote memory, attention and concentration is poor consistent with her diagnoses. Laboratory Data: Reviewed. Impression: Major neurocognitive disorder Alzheimer vascular with delusion, depression, and behavioral disturbance. Anxiety disorder unspecified. Impulse control disorder unspecified. Plan: No change from initial note. Assessment: Vital Signs/I&O: Vital Signs Date Time Temp Pulse Resp B/P (MAP) Pulse Ox O2 Delivery O2 Flow Rate FiO2 01/12/21 06:28 97.5 66 16 123/64 (83) 98 01/10/21 07:00 Room Air I & O 01/11/21 01/11/21 01/12/21 15:00 23:00 07:00 Intake Total 480 ml 600 ml Balance 480 ml 600 ml Current Medications: Meds: Current Medications Medications (Trade) Dose Ordered Sig/Brianne Route PRN Reason Start Time Stop Time Status Last Admin Dose Admin Lorazepam (Ativan) 1 mg STK-MED ONCE .ROUTE 12/02/20 14:25 12/02/20 14:25 DC Lorazepam (Ativan) 1 mg 1X ONCE PO 12/02/20 14:30 12/02/20 14:36 DC 12/02/20 14:31 Potassium/ Phosphorus/Sodium (Phos-Nak) 1 pkt 1X ONCE PO 12/02/20 15:00 12/02/20 15:01 Cancel Potassium Bicarbonate (Potassium Effervescent Tablet) 20 meq STK-MED ONCE .ROUTE 12/02/20 14:56 12/02/20 14:57 DC Potassium Bicarbonate (Potassium Effervescent Tablet) 20 meq 1X ONCE PO 12/02/20 15:00 12/02/20 15:01 DC 12/02/20 15:00 Acetaminophen (Tylenol) 650 mg PRN Q6HRS PRN PO MILD PAIN / TEMP > 100.3'F 12/02/20 15:45 12/29/20 05:11 Multi-Ingredient Ointment (Analgesic [place]) 1 itz PRN QID PRN TP MUSCLE PAIN 12/02/20 15:45 Al Hydroxide/Mg Hydroxide (Mylanta Plus Xs) 15 ml PRN AFTMEALHC PRN PO DYSPEPSIA 12/02/20 15:45 Magnesium Hydroxide (Milk Of Magnesia) 2,400 mg PRN QHS PRN PO CONSTIPATION 12/02/20 15:45 12/03/20 16:29 Lisinopril (Prinivil) 10 mg DAILY PO 12/03/20 09:00 01/12/21 04:41 Multivitamins/ Calcium (Thera-M Plus) 1 tab DAILY PO 12/03/20 09:00 01/12/21 04:40 Olanzapine (ZyPREXA ZYDIS) 2.5 mg PRN Q2HRS PRN PO PSYCHOSIS 12/02/20 17:00 01/07/21 18:41 Potassium Chloride (Klor-Con) 20 meq DAILYWBKFT PO 12/04/20 08:00 01/12/21 04:40 Sertraline HCl (Zoloft) 25 mg DAILY PO 12/04/20 09:00 12/06/20 21:00 DC 12/06/20 08:17 Sertraline HCl (Zoloft) 50 mg DAILY PO 12/07/20 09:00 01/12/21 04:40 Quetiapine Fumarate (SEROquel) 12.5 mg 0900 PO 12/09/20 09:00 12/10/20 16:51 DC 12/10/20 09:00 Quetiapine Fumarate (SEROquel) 12.5 mg ONCE ONCE PO 12/08/20 17:15 12/08/20 17:16 DC 12/08/20 17:15 Quetiapine Fumarate (SEROquel) 12.5 mg 1700 PO 12/09/20 18:00 01/02/21 11:54 DC 01/01/21 17:00 Quetiapine Fumarate (SEROquel) 25 mg 0900 PO 12/11/20 09:00 01/12/21 04:40 Divalproex Sodium (Depakote Sprinkles) 125 mg BID PO 12/12/20 21:00 12/13/20 10:16 DC 12/13/20 08:35 Trazodone HCl (Desyrel) 50 mg PRN QHS PRN PO INSOMNIA 12/13/20 00:30 01/11/21 01:31 Divalproex Sodium (Depakote Sprinkles) 125 mg 0900,1700 PO 12/13/20 17:00 12/13/20 17:49 DC 12/13/20 16:35 Valproic Acid (Depakene) 125 mg 0900,1700 PO 12/14/20 09:00 12/17/20 15:35 DC 12/17/20 08:39 Valproic Acid (Depakene) 125 mg [id number] PO 12/17/20 21:00 12/23/20 16:57 DC 12/23/20 14:05 Valproic Acid (Depakene) 125 mg QID PO 12/23/20 17:00 01/02/21 11:54 DC 01/02/21 08:35 Hydroxyzine HCl (Atarax) 10 mg PRN Q2HR PRN PO ITCHING 12/29/20 20:15 01/11/21 01:31 Quetiapine Fumarate (SEROquel) 25 mg 1700 PO 01/02/21 17:00 01/11/21 17:31 Valproic Acid (Depakene) 125 mg 1300,1700 PO 01/02/21 13:00 01/11/21 17:00 Quetiapine Fumarate (SEROquel) 12.5 mg 1200 PO 01/02/21 12:00 01/11/21 12:48 Valproic Acid (Depakene) 250 mg 0900,2100 PO 01/02/21 21:00 01/12/21 04:40 I have reviewed the current psychotropics carefully including drug interactions. Risk benefit ratio favors no change other than as noted in my dictated progress note. Diagnosis: Problems: (1) Major neurocognitive disorder (2) Impulse control disorder, unspecified (3) Anxiety disorder, unspecified (4) Dementia, vascular, with depression (5) Dementia, vascular, with delusions (6) Dementia in Alzheimer's disease with depression (7) Dementia in Alzheimer's disease with delusions (8) Dementia of the Alzheimer's type with early onset with behavioral disturbance EMILY CHARLES MD Jan 12, 2021 08:53
[2021-01-12 16:28] VITALS: BP 109/61
[2021-01-12] MEDS: traZODone 50 MG TABLET. PO PRN (19:49)
--- NOTE | 2021-01-12 22:01 | PDOC ---
Exam Note: Earle Note: Please also refer to the separate dictated note~for this date of service dictated separately.~Patient seen individually. Discussed the patient with Nursing staff reviewed the chart.~Reviewed interim history and current functioning. Reviewed vital signs,~Labs/ Radiology~and current medications noted below. Continue current treatment with the changes noted in the dictated addendum note Assessment: Vital Signs/I&O: Vital Signs Date Time Temp Pulse Resp B/P (MAP) Pulse Ox O2 Delivery O2 Flow Rate FiO2 01/12/21 16:28 96.3 74 20 109/61 (77) 97 01/10/21 07:00 Room Air I & O 01/11/21 01/11/21 01/12/21 15:00 23:00 07:00 Intake Total 480 ml 600 ml Balance 480 ml 600 ml Current Medications: Meds: Current Medications Medications (Trade) Dose Ordered Sig/Brianne Route PRN Reason Start Time Stop Time Status Last Admin Dose Admin Lorazepam (Ativan) 1 mg STK-MED ONCE .ROUTE 12/02/20 14:25 12/02/20 14:25 DC Lorazepam (Ativan) 1 mg 1X ONCE PO 12/02/20 14:30 12/02/20 14:36 DC 12/02/20 14:31 Potassium/ Phosphorus/Sodium (Phos-Nak) 1 pkt 1X ONCE PO 12/02/20 15:00 12/02/20 15:01 Cancel Potassium Bicarbonate (Potassium Effervescent Tablet) 20 meq STK-MED ONCE .ROUTE 12/02/20 14:56 12/02/20 14:57 DC Potassium Bicarbonate (Potassium Effervescent Tablet) 20 meq 1X ONCE PO 12/02/20 15:00 12/02/20 15:01 DC 12/02/20 15:00 Acetaminophen (Tylenol) 650 mg PRN Q6HRS PRN PO MILD PAIN / TEMP > 100.3'F 12/02/20 15:45 12/29/20 05:11 Multi-Ingredient Ointment (Analgesic [place]) 1 itz PRN QID PRN TP MUSCLE PAIN 12/02/20 15:45 Al Hydroxide/Mg Hydroxide (Mylanta Plus Xs) 15 ml PRN AFTMEALHC PRN PO DYSPEPSIA 12/02/20 15:45 Magnesium Hydroxide (Milk Of Magnesia) 2,400 mg PRN QHS PRN PO CONSTIPATION 12/02/20 15:45 12/03/20 16:29 Lisinopril (Prinivil) 10 mg DAILY PO 12/03/20 09:00 01/12/21 04:41 Multivitamins/ Calcium (Thera-M Plus) 1 tab DAILY PO 12/03/20 09:00 01/12/21 04:40 Olanzapine (ZyPREXA ZYDIS) 2.5 mg PRN Q2HRS PRN PO PSYCHOSIS 12/02/20 17:00 01/12/21 13:25 Potassium Chloride (Klor-Con) 20 meq DAILYWBKFT PO 12/04/20 08:00 01/12/21 04:40 Sertraline HCl (Zoloft) 25 mg DAILY PO 12/04/20 09:00 12/06/20 21:00 DC 12/06/20 08:17 Sertraline HCl (Zoloft) 50 mg DAILY PO 12/07/20 09:00 01/12/21 04:40 Quetiapine Fumarate (SEROquel) 12.5 mg 0900 PO 12/09/20 09:00 12/10/20 16:51 DC 12/10/20 09:00 Quetiapine Fumarate (SEROquel) 12.5 mg ONCE ONCE PO 12/08/20 17:15 12/08/20 17:16 DC 12/08/20 17:15 Quetiapine Fumarate (SEROquel) 12.5 mg 1700 PO 12/09/20 18:00 01/02/21 11:54 DC 01/01/21 17:00 Quetiapine Fumarate (SEROquel) 25 mg 0900 PO 12/11/20 09:00 01/12/21 04:40 Divalproex Sodium (Depakote Sprinkles) 125 mg BID PO 12/12/20 21:00 12/13/20 10:16 DC 12/13/20 08:35 Trazodone HCl (Desyrel) 50 mg PRN QHS PRN PO INSOMNIA 12/13/20 00:30 01/12/21 19:49 Divalproex Sodium (Depakote Sprinkles) 125 mg 0900,1700 PO 12/13/20 17:00 12/13/20 17:49 DC 12/13/20 16:35 Valproic Acid (Depakene) 125 mg 0900,1700 PO 12/14/20 09:00 12/17/20 15:35 DC 12/17/20 08:39 Valproic Acid (Depakene) 125 mg [id number] PO 12/17/20 21:00 12/23/20 16:57 DC 12/23/20 14:05 Valproic Acid (Depakene) 125 mg QID PO 12/23/20 17:00 01/02/21 11:54 DC 01/02/21 08:35 Hydroxyzine HCl (Atarax) 10 mg PRN Q2HR PRN PO ITCHING 12/29/20 20:15 01/11/21 01:31 Quetiapine Fumarate (SEROquel) 25 mg 1700 PO 01/02/21 17:00 01/12/21 17:25 Valproic Acid (Depakene) 125 mg 1300,1700 PO 01/02/21 13:00 01/12/21 17:27 Quetiapine Fumarate (SEROquel) 12.5 mg 1200 PO 01/02/21 12:00 01/12/21 12:12 Valproic Acid (Depakene) 250 mg 0900,2100 PO 01/02/21 21:00 01/12/21 19:49 I have reviewed the current psychotropics carefully including drug interactions. Risk benefit ratio favors no change other than as noted in my dictated progress note. Diagnosis: Problems: (1) Major neurocognitive disorder (2) Impulse control disorder, unspecified (3) Anxiety disorder, unspecified (4) Dementia, vascular, with depression (5) Dementia, vascular, with delusions (6) Dementia in Alzheimer's disease with depression (7) Dementia in Alzheimer's disease with delusions (8) Dementia of the Alzheimer's type with early onset with behavioral disturbance EMILY CHARLES MD Jan 12, 2021 22:01
[2021-01-13 05:59] VITALS: BP 112/74
--- NOTE | 2021-01-13 06:43 | PDOC ---
Exam Note: Earle Note: This note is a late entry for 01/12/2021 covers elements not covered in my initial note. Subjective: The patient was seen individually in the evening of 01/12/2021 with Catie APPIAH, discussed and reviewed the chart. The patient slept 6 hours previous night. The patient remains confused. By the afternoon she is more anxious, running up and down the hallway, does redirect. Review of Systems: Ambulation impaired. No CV, , pulmonary, eye system symptoms on review. Reliability poor. Mental Status Exam: The patient is oriented to herself. Insight and judgment, recent and remote memory, attention and concentration is poor consistent with her diagnoses. Laboratory Data: Reviewed. Impression: Major neurocognitive disorder Alzheimer vascular with delusion, depression, and behavioral disturbance. Anxiety disorder unspecified. Impulse control disorder unspecified. Plan: No change from initial note. Assessment: Vital Signs/I&O: Vital Signs Date Time Temp Pulse Resp B/P (MAP) Pulse Ox O2 Delivery O2 Flow Rate FiO2 01/13/21 05:59 97.0 70 16 112/74 (87) 97 01/10/21 07:00 Room Air I & O 01/12/21 01/12/21 01/13/21 15:00 23:00 07:00 Intake Total 480 ml 360 ml Balance 480 ml 360 ml Current Medications: Meds: Current Medications Medications (Trade) Dose Ordered Sig/Brianne Route PRN Reason Start Time Stop Time Status Last Admin Dose Admin Lorazepam (Ativan) 1 mg STK-MED ONCE .ROUTE 12/02/20 14:25 12/02/20 14:25 DC Lorazepam (Ativan) 1 mg 1X ONCE PO 12/02/20 14:30 12/02/20 14:36 DC 12/02/20 14:31 Potassium/ Phosphorus/Sodium (Phos-Nak) 1 pkt 1X ONCE PO 12/02/20 15:00 12/02/20 15:01 Cancel Potassium Bicarbonate (Potassium Effervescent Tablet) 20 meq STK-MED ONCE .ROUTE 12/02/20 14:56 12/02/20 14:57 DC Potassium Bicarbonate (Potassium Effervescent Tablet) 20 meq 1X ONCE PO 12/02/20 15:00 12/02/20 15:01 DC 12/02/20 15:00 Acetaminophen (Tylenol) 650 mg PRN Q6HRS PRN PO MILD PAIN / TEMP > 100.3'F 12/02/20 15:45 12/29/20 05:11 Multi-Ingredient Ointment (Analgesic [place]) 1 itz PRN QID PRN TP MUSCLE PAIN 12/02/20 15:45 Al Hydroxide/Mg Hydroxide (Mylanta Plus Xs) 15 ml PRN AFTMEALHC PRN PO DYSPEPSIA 12/02/20 15:45 Magnesium Hydroxide (Milk Of Magnesia) 2,400 mg PRN QHS PRN PO CONSTIPATION 12/02/20 15:45 12/03/20 16:29 Lisinopril (Prinivil) 10 mg DAILY PO 12/03/20 09:00 01/12/21 04:41 Multivitamins/ Calcium (Thera-M Plus) 1 tab DAILY PO 12/03/20 09:00 01/12/21 04:40 Olanzapine (ZyPREXA ZYDIS) 2.5 mg PRN Q2HRS PRN PO PSYCHOSIS 12/02/20 17:00 01/12/21 13:25 Potassium Chloride (Klor-Con) 20 meq DAILYWBKFT PO 12/04/20 08:00 01/12/21 04:40 Sertraline HCl (Zoloft) 25 mg DAILY PO 12/04/20 09:00 12/06/20 21:00 DC 12/06/20 08:17 Sertraline HCl (Zoloft) 50 mg DAILY PO 12/07/20 09:00 01/12/21 04:40 Quetiapine Fumarate (SEROquel) 12.5 mg 0900 PO 12/09/20 09:00 12/10/20 16:51 DC 12/10/20 09:00 Quetiapine Fumarate (SEROquel) 12.5 mg ONCE ONCE PO 12/08/20 17:15 12/08/20 17:16 DC 12/08/20 17:15 Quetiapine Fumarate (SEROquel) 12.5 mg 1700 PO 12/09/20 18:00 01/02/21 11:54 DC 01/01/21 17:00 Quetiapine Fumarate (SEROquel) 25 mg 0900 PO 12/11/20 09:00 01/12/21 04:40 Divalproex Sodium (Depakote Sprinkles) 125 mg BID PO 12/12/20 21:00 12/13/20 10:16 DC 12/13/20 08:35 Trazodone HCl (Desyrel) 50 mg PRN QHS PRN PO INSOMNIA 12/13/20 00:30 01/12/21 19:49 Divalproex Sodium (Depakote Sprinkles) 125 mg 0900,1700 PO 12/13/20 17:00 12/13/20 17:49 DC 12/13/20 16:35 Valproic Acid (Depakene) 125 mg 0900,1700 PO 12/14/20 09:00 12/17/20 15:35 DC 12/17/20 08:39 Valproic Acid (Depakene) 125 mg [id number] PO 12/17/20 21:00 12/23/20 16:57 DC 12/23/20 14:05 Valproic Acid (Depakene) 125 mg QID PO 12/23/20 17:00 01/02/21 11:54 DC 01/02/21 08:35 Hydroxyzine HCl (Atarax) 10 mg PRN Q2HR PRN PO ITCHING 12/29/20 20:15 01/11/21 01:31 Quetiapine Fumarate (SEROquel) 25 mg 1700 PO 01/02/21 17:00 01/12/21 17:25 Valproic Acid (Depakene) 125 mg 1300,1700 PO 01/02/21 13:00 01/12/21 17:27 Quetiapine Fumarate (SEROquel) 12.5 mg 1200 PO 01/02/21 12:00 01/12/21 12:12 Valproic Acid (Depakene) 250 mg 0900,2100 PO 01/02/21 21:00 01/12/21 19:49 I have reviewed the current psychotropics carefully including drug interactions. Risk benefit ratio favors no change other than as noted in my dictated progress note. Diagnosis: Problems: (1) Major neurocognitive disorder (2) Impulse control disorder, unspecified (3) Anxiety disorder, unspecified (4) Dementia, vascular, with depression (5) Dementia, vascular, with delusions (6) Dementia in Alzheimer's disease with depression (7) Dementia in Alzheimer's disease with delusions (8) Dementia of the Alzheimer's type with early onset with behavioral disturbance EMILY CHARLES MD Jan 13, 2021 06:43
[2021-01-13] MEDS: VALPROATE ACID 250 MG/5 ML ORAL SOLUTION PO SCH ×4 (08:07→19:58)
[2021-01-13] MEDS: MULTIVITAMIN with MINERAL TABLET. PO SCH (08:07)
[2021-01-13] MEDS: POTASSIUM CHLORIDE 20 MEQ TABLET.ER. PO SCH (08:08)
[2021-01-13] MEDS: LISINOPRIL 10 MG TABLET PO SCH (08:09)
[2021-01-13] MEDS: QUEtiapine 25 MG TABLET. PO SCH ×3 (08:09→17:18)
[2021-01-13] MEDS: SERTRALINE 50 MG TABLET. PO SCH (08:09)
[2021-01-13 11:06] LABS: ALBUMIN 3.6 g/dL (3.4-5.0); ALBUMIN/GLOBULIN RATIO 1.2 (1.0-1.7); CALCIUM 9.2 mg/dL (8.5-10.1); CREATININE 0.8 mg/dL (0.6-1.0); GFR 68.5; POTASSIUM 4.4 mmol/L (3.5-5.1); TOTAL BILIRUBIN 0.3 mg/dL (0.2-1.0); TOTAL PROTEIN 6.7 g/dL (6.4-8.2)
[2021-01-13 15:22] LABS: BASO # 0.1 x10^3/uL (0.0-0.2); BASO % 1 % (0-3); EOS # 0.2 x10^3/uL (0.0-0.7); EOS % 2 % (0-3); HEMATOCRIT 34.1 % (36.0-47.0); HEMOGLOBIN 11.7 g/dL (12.0-15.5); LYMPH # 1.7 x10^3/uL (1.0-4.8); LYMPH % 23 % (24-48); MEAN CORPUSCULAR HEMOGLOBIN 32 pg (25-35); MEAN CORPUSCULAR HGB CONC 34 g/dL (31-37); MEAN CORPUSCULAR VOLUME 94 fL (79-100); MONO # 0.5 x10^3/uL (0.0-1.1); MONO % 7 % (0-9); NEUT # 4.9 x10^3uL (1.8-7.7); NEUT % 67 % (31-73); PLATELET COUNT 246 x10^3/uL (140-400); RED BLOOD COUNT 3.64 x10^6/uL (3.50-5.40); RED CELL DISTRIBUTION WIDTH 13.2 % (11.5-14.5); WHITE BLOOD COUNT 7.4 x10^3/uL (4.0-11.0)
[2021-01-13 15:48] VITALS: BP 94/55
[2021-01-13] MEDS ORDERED: oxyCODONE/APAP 7.5/325 1 TAB TABLET PO PRN (16:45)
[2021-01-13] MEDS: traZODone 50 MG TABLET. PO PRN (19:58)
[2021-01-13] MEDS: ACETAMINOPHEN 325 MG TABLET PO PRN (19:58)
--- NOTE | 2021-01-13 22:19 | PDOC ---
Exam Note: Earle Note: Please also refer to the separate dictated note~for this date of service dictated separately.~Patient seen individually. Discussed the patient with Nursing staff reviewed the chart.~Reviewed interim history and current functioning. Reviewed vital signs,~Labs/ Radiology~and current medications noted below. Continue current treatment with the changes noted in the dictated addendum note Assessment: Vital Signs/I&O: Vital Signs Date Time Temp Pulse Resp B/P (MAP) Pulse Ox O2 Delivery O2 Flow Rate FiO2 01/13/21 15:48 96.8 88 19 94/55 (68) 92 01/10/21 07:00 Room Air I & O 01/12/21 01/12/21 01/13/21 15:00 23:00 07:00 Intake Total 480 ml 360 ml Balance 480 ml 360 ml Labs: Laboratory Tests Test 01/13/21 10:12 01/13/21 14:30 Sodium Level 141 mmol/L (136-145) Potassium Level 4.4 mmol/L (3.5-5.1) Chloride Level 104 mmol/L (98-107) Carbon Dioxide Level 31 mmol/L (21-32) Anion Gap 6 (6-14) Blood Urea Nitrogen 20 mg/dL (7-20) Creatinine 0.8 mg/dL (0.6-1.0) Estimated GFR (Cockcroft-Gault) 68.5 BUN/Creatinine Ratio 25 (6-20) H Glucose Level 97 mg/dL (70-99) Calcium Level 9.2 mg/dL (8.5-10.1) Total Bilirubin 0.3 mg/dL (0.2-1.0) Aspartate Amino Transferase (AST) 18 U/L (15-37) Alanine Aminotransferase (ALT) 22 U/L (14-59) Alkaline Phosphatase 67 U/L (46-116) Total Protein 6.7 g/dL (6.4-8.2) Albumin 3.6 g/dL (3.4-5.0) Albumin/Globulin Ratio 1.2 (1.0-1.7) White Blood Count 7.4 x10^3/uL (4.0-11.0) Red Blood Count 3.64 x10^6/uL (3.50-5.40) Hemoglobin 11.7 g/dL (12.0-15.5) L Hematocrit 34.1 % (36.0-47.0) L Mean Corpuscular Volume 94 fL (79-100) Mean Corpuscular Hemoglobin 32 pg (25-35) Mean Corpuscular Hemoglobin Concent 34 g/dL (31-37) Red Cell Distribution Width 13.2 % (11.5-14.5) Platelet Count 246 x10^3/uL (140-400) Neutrophils (%) (Auto) 67 % (31-73) Lymphocytes (%) (Auto) 23 % (24-48) L Monocytes (%) (Auto) 7 % (0-9) Eosinophils (%) (Auto) 2 % (0-3) Basophils (%) (Auto) 1 % (0-3) Neutrophils # (Auto) 4.9 x10^3uL (1.8-7.7) Lymphocytes # (Auto) 1.7 x10^3/uL (1.0-4.8) Monocytes # (Auto) 0.5 x10^3/uL (0.0-1.1) Eosinophils # (Auto) 0.2 x10^3/uL (0.0-0.7) Basophils # (Auto) 0.1 x10^3/uL (0.0-0.2) Current Medications: Meds: Laboratory Tests Test 01/13/21 10:12 01/13/21 14:30 Sodium Level 141 mmol/L Potassium Level 4.4 mmol/L Chloride Level 104 mmol/L Carbon Dioxide Level 31 mmol/L Anion Gap 6 Blood Urea Nitrogen 20 mg/dL Creatinine 0.8 mg/dL Estimated GFR (Cockcroft-Gault) 68.5 BUN/Creatinine Ratio 25 Glucose Level 97 mg/dL Calcium Level 9.2 mg/dL Total Bilirubin 0.3 mg/dL Aspartate Amino Transf (AST/SGOT) 18 U/L Alanine Aminotransferase (ALT/SGPT) 22 U/L Alkaline Phosphatase 67 U/L Total Protein 6.7 g/dL Albumin 3.6 g/dL Albumin/Globulin Ratio 1.2 White Blood Count 7.4 x10^3/uL Red Blood Count 3.64 x10^6/uL Hemoglobin 11.7 g/dL Hematocrit 34.1 % Mean Corpuscular Volume 94 fL Mean Corpuscular Hemoglobin 32 pg Mean Corpuscular Hemoglobin Concent 34 g/dL Red Cell Distribution Width 13.2 % Platelet Count 246 x10^3/uL Neutrophils (%) (Auto) 67 % Lymphocytes (%) (Auto) 23 % Monocytes (%) (Auto) 7 % Eosinophils (%) (Auto) 2 % Basophils (%) (Auto) 1 % Neutrophils # (Auto) 4.9 x10^3uL Lymphocytes # (Auto) 1.7 x10^3/uL Monocytes # (Auto) 0.5 x10^3/uL Eosinophils # (Auto) 0.2 x10^3/uL Basophils # (Auto) 0.1 x10^3/uL Current Medications Medications (Trade) Dose Ordered Sig/Brianne Route PRN Reason Start Time Stop Time Status Last Admin Dose Admin Lorazepam (Ativan) 1 mg STK-MED ONCE .ROUTE 12/02/20 14:25 12/02/20 14:25 DC Lorazepam (Ativan) 1 mg 1X ONCE PO 12/02/20 14:30 12/02/20 14:36 DC 12/02/20 14:31 Potassium/ Phosphorus/Sodium (Phos-Nak) 1 pkt 1X ONCE PO 12/02/20 15:00 12/02/20 15:01 Cancel Potassium Bicarbonate (Potassium Effervescent Tablet) 20 meq STK-MED ONCE .ROUTE 12/02/20 14:56 12/02/20 14:57 DC Potassium Bicarbonate (Potassium Effervescent Tablet) 20 meq 1X ONCE PO 12/02/20 15:00 12/02/20 15:01 DC 12/02/20 15:00 Acetaminophen (Tylenol) 650 mg PRN Q6HRS PRN PO MILD PAIN / TEMP > 100.3'F 12/02/20 15:45 01/13/21 19:58 Multi-Ingredient Ointment (Analgesic [place]) 1 itz PRN QID PRN TP MUSCLE PAIN 12/02/20 15:45 Al Hydroxide/Mg Hydroxide (Mylanta Plus Xs) 15 ml PRN AFTMEALHC PRN PO DYSPEPSIA 12/02/20 15:45 Magnesium Hydroxide (Milk Of Magnesia) 2,400 mg PRN QHS PRN PO CONSTIPATION 12/02/20 15:45 12/03/20 16:29 Lisinopril (Prinivil) 10 mg DAILY PO 12/03/20 09:00 01/13/21 08:09 Multivitamins/ Calcium (Thera-M Plus) 1 tab DAILY PO 12/03/20 09:00 01/13/21 08:07 Olanzapine (ZyPREXA ZYDIS) 2.5 mg PRN Q2HRS PRN PO PSYCHOSIS 12/02/20 17:00 01/13/21 08:09 Potassium Chloride (Klor-Con) 20 meq DAILYWBKFT PO 12/04/20 08:00 01/13/21 08:08 Sertraline HCl (Zoloft) 25 mg DAILY PO 12/04/20 09:00 12/06/20 21:00 DC 12/06/20 08:17 Sertraline HCl (Zoloft) 50 mg DAILY PO 12/07/20 09:00 01/13/21 08:09 Quetiapine Fumarate (SEROquel) 12.5 mg 0900 PO 12/09/20 09:00 12/10/20 16:51 DC 12/10/20 09:00 Quetiapine Fumarate (SEROquel) 12.5 mg ONCE ONCE PO 12/08/20 17:15 12/08/20 17:16 DC 12/08/20 17:15 Quetiapine Fumarate (SEROquel) 12.5 mg 1700 PO 12/09/20 18:00 01/02/21 11:54 DC 01/01/21 17:00 Quetiapine Fumarate (SEROquel) 25 mg 0900 PO 12/11/20 09:00 01/13/21 08:09 Divalproex Sodium (Depakote Sprinkles) 125 mg BID PO 12/12/20 21:00 12/13/20 10:16 DC 12/13/20 08:35 Trazodone HCl (Desyrel) 50 mg PRN QHS PRN PO INSOMNIA 12/13/20 00:30 01/13/21 19:58 Divalproex Sodium (Depakote Sprinkles) 125 mg 0900,1700 PO 12/13/20 17:00 12/13/20 17:49 DC 12/13/20 16:35 Valproic Acid (Depakene) 125 mg 0900,1700 PO 12/14/20 09:00 12/17/20 15:35 DC 12/17/20 08:39 Valproic Acid (Depakene) 125 mg [id number] PO 12/17/20 21:00 12/23/20 16:57 DC 12/23/20 14:05 Valproic Acid (Depakene) 125 mg QID PO 12/23/20 17:00 01/02/21 11:54 DC 01/02/21 08:35 Hydroxyzine HCl (Atarax) 10 mg PRN Q2HR PRN PO ITCHING 12/29/20 20:15 01/11/21 01:31 Quetiapine Fumarate (SEROquel) 25 mg 1700 PO 01/02/21 17:00 01/13/21 17:18 Valproic Acid (Depakene) 125 mg 1300,1700 PO 01/02/21 13:00 01/13/21 17:19 Quetiapine Fumarate (SEROquel) 12.5 mg 1200 PO 01/02/21 12:00 01/13/21 12:18 Valproic Acid (Depakene) 250 mg 0900,2100 PO 01/02/21 21:00 01/13/21 19:58 Oxycodone/ Acetaminophen (Percocet 7.5/ 325) 1 tab PRN Q6HRS PRN PO PAIN 01/13/21 16:45 I have reviewed the current psychotropics carefully including drug interactions. Risk benefit ratio favors no change other than as noted in my dictated progress note. Diagnosis: Problems: (1) Major neurocognitive disorder (2) Impulse control disorder, unspecified (3) Anxiety disorder, unspecified (4) Dementia, vascular, with depression (5) Dementia, vascular, with delusions (6) Dementia in Alzheimer's disease with depression (7) Dementia in Alzheimer's disease with delusions (8) Dementia of the Alzheimer's type with early onset with behavioral di sturbance EMILY CHARLES MD Jan 13, 2021 22:19
[2021-01-14 06:02] VITALS: BP 126/67
[2021-01-14] MEDS: POTASSIUM CHLORIDE 20 MEQ TABLET.ER. PO SCH (08:00)
[2021-01-14] MEDS: MULTIVITAMIN with MINERAL TABLET. PO SCH (08:35)
[2021-01-14] MEDS: SERTRALINE 50 MG TABLET. PO SCH (08:35)
[2021-01-14] MEDS: QUEtiapine 25 MG TABLET. PO SCH ×3 (08:35→16:53)
[2021-01-14] MEDS: VALPROATE ACID 250 MG/5 ML ORAL SOLUTION PO SCH ×4 (08:56→19:49)
[2021-01-14] MEDS: LISINOPRIL 10 MG TABLET PO SCH (08:56)
[2021-01-14 15:34] VITALS: BP 102/68
[2021-01-14] MEDS: traZODone 50 MG TABLET. PO PRN (19:49)
[2021-01-14] MEDS: ACETAMINOPHEN 325 MG TABLET PO PRN (19:50)
--- NOTE | 2021-01-14 22:18 | PDOC ---
Exam Note: Earle Note: Please also refer to the separate dictated note~for this date of service dictated separately.~Patient seen individually. Discussed the patient with Nursing staff reviewed the chart.~Reviewed interim history and current functioning. Reviewed vital signs,~Labs/ Radiology~and current medications noted below. Continue current treatment with the changes noted in the dictated addendum note Assessment: Vital Signs/I&O: Vital Signs Date Time Temp Pulse Resp B/P (MAP) Pulse Ox O2 Delivery O2 Flow Rate FiO2 01/14/21 15:34 98.7 82 16 102/68 (79) 96 01/10/21 07:00 Room Air I & O 01/13/21 01/13/21 01/14/21 15:00 23:00 07:00 Intake Total 480 ml 360 ml Balance 480 ml 360 ml Current Medications: Meds: Current Medications Medications (Trade) Dose Ordered Sig/Brianne Route PRN Reason Start Time Stop Time Status Last Admin Dose Admin Lorazepam (Ativan) 1 mg STK-MED ONCE .ROUTE 12/02/20 14:25 12/02/20 14:25 DC Lorazepam (Ativan) 1 mg 1X ONCE PO 12/02/20 14:30 12/02/20 14:36 DC 12/02/20 14:31 Potassium/ Phosphorus/Sodium (Phos-Nak) 1 pkt 1X ONCE PO 12/02/20 15:00 12/02/20 15:01 Cancel Potassium Bicarbonate (Potassium Effervescent Tablet) 20 meq STK-MED ONCE .ROUTE 12/02/20 14:56 12/02/20 14:57 DC Potassium Bicarbonate (Potassium Effervescent Tablet) 20 meq 1X ONCE PO 12/02/20 15:00 12/02/20 15:01 DC 12/02/20 15:00 Acetaminophen (Tylenol) 650 mg PRN Q6HRS PRN PO MILD PAIN / TEMP > 100.3'F 12/02/20 15:45 01/14/21 19:50 Multi-Ingredient Ointment (Analgesic [place]) 1 itz PRN QID PRN TP MUSCLE PAIN 12/02/20 15:45 Al Hydroxide/Mg Hydroxide (Mylanta Plus Xs) 15 ml PRN AFTMEALHC PRN PO DYSPEPSIA 12/02/20 15:45 Magnesium Hydroxide (Milk Of Magnesia) 2,400 mg PRN QHS PRN PO CONSTIPATION 12/02/20 15:45 12/03/20 16:29 Lisinopril (Prinivil) 10 mg DAILY PO 12/03/20 09:00 01/14/21 08:56 Multivitamins/ Calcium (Thera-M Plus) 1 tab DAILY PO 12/03/20 09:00 01/14/21 08:35 Olanzapine (ZyPREXA ZYDIS) 2.5 mg PRN Q2HRS PRN PO PSYCHOSIS 12/02/20 17:00 01/13/21 08:09 Potassium Chloride (Klor-Con) 20 meq DAILYWBKFT PO 12/04/20 08:00 01/14/21 08:00 Sertraline HCl (Zoloft) 25 mg DAILY PO 12/04/20 09:00 12/06/20 21:00 DC 12/06/20 08:17 Sertraline HCl (Zoloft) 50 mg DAILY PO 12/07/20 09:00 01/14/21 08:35 Quetiapine Fumarate (SEROquel) 12.5 mg 0900 PO 12/09/20 09:00 12/10/20 16:51 DC 12/10/20 09:00 Quetiapine Fumarate (SEROquel) 12.5 mg ONCE ONCE PO 12/08/20 17:15 12/08/20 17:16 DC 12/08/20 17:15 Quetiapine Fumarate (SEROquel) 12.5 mg 1700 PO 12/09/20 18:00 01/02/21 11:54 DC 01/01/21 17:00 Quetiapine Fumarate (SEROquel) 25 mg 0900 PO 12/11/20 09:00 01/14/21 08:35 Divalproex Sodium (Depakote Sprinkles) 125 mg BID PO 12/12/20 21:00 12/13/20 10:16 DC 12/13/20 08:35 Trazodone HCl (Desyrel) 50 mg PRN QHS PRN PO INSOMNIA 12/13/20 00:30 01/14/21 19:49 Divalproex Sodium (Depakote Sprinkles) 125 mg 0900,1700 PO 12/13/20 17:00 12/13/20 17:49 DC 12/13/20 16:35 Valproic Acid (Depakene) 125 mg 0900,1700 PO 12/14/20 09:00 12/17/20 15:35 DC 12/17/20 08:39 Valproic Acid (Depakene) 125 mg [id number] PO 12/17/20 21:00 12/23/20 16:57 DC 12/23/20 14:05 Valproic Acid (Depakene) 125 mg QID PO 12/23/20 17:00 01/02/21 11:54 DC 01/02/21 08:35 Hydroxyzine HCl (Atarax) 10 mg PRN Q2HR PRN PO ITCHING 12/29/20 20:15 01/11/21 01:31 Quetiapine Fumarate (SEROquel) 25 mg 1700 PO 01/02/21 17:00 01/14/21 16:53 Valproic Acid (Depakene) 125 mg 1300,1700 PO 01/02/21 13:00 01/14/21 16:54 Quetiapine Fumarate (SEROquel) 12.5 mg 1200 PO 01/02/21 12:00 01/14/21 12:38 Valproic Acid (Depakene) 250 mg 0900,2100 PO 01/02/21 21:00 01/14/21 19:49 Oxycodone/ Acetaminophen (Percocet 7.5/ 325) 1 tab PRN Q6HRS PRN PO PAIN 01/13/21 16:45 I have reviewed the current psychotropics carefully including drug interactions. Risk benefit ratio favors no change other than as noted in my dictated progress note. 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
[2021-01-15 05:51] VITALS: BP 125/70
[2021-01-15] MEDS: LISINOPRIL 10 MG TABLET PO SCH (08:04)
[2021-01-15] MEDS: POTASSIUM CHLORIDE 20 MEQ TABLET.ER. PO SCH (08:04)
[2021-01-15] MEDS: QUEtiapine 25 MG TABLET. PO SCH ×3 (08:05→17:03)
[2021-01-15] MEDS: VALPROATE ACID 250 MG/5 ML ORAL SOLUTION PO SCH ×4 (08:05→19:38)
[2021-01-15] MEDS: MULTIVITAMIN with MINERAL TABLET. PO SCH (08:05)
[2021-01-15] MEDS: SERTRALINE 50 MG TABLET. PO SCH (08:06)
--- NOTE | 2021-01-15 09:12 | PDOC ---
Exam Note: Earle Note: This note is a late entry for 01/13/2021 covers elements not covered in my initial note. Subjective: The patient was seen individually in the evening of 01/13/2021 with Catie APPIAH, discussed and reviewed the chart. The patient slept 8-1/4 hours previous night. No new behaviors noted. She remains confused, complains of some pain. She received Percocet per Dr. Baldwin. She has been leaning over. We will monitor this. Review of Systems: Ambulation impaired. No CV, , pulmonary, eye system symptoms on review. Reliability poor. Mental Status Exam: The patient is oriented to herself. Insight and judgment, recent and remote memory, attention and concentration is poor consistent with her diagnoses. Laboratory Data: Reviewed. Impression: Major neurocognitive disorder Alzheimer vascular with delusion, depression, and behavioral disturbance. Anxiety disorder unspecified. Impulse control disorder unspecified. Plan: No change from initial note. Assessment: Vital Signs/I&O: Vital Signs Date Time Temp Pulse Resp B/P (MAP) Pulse Ox O2 Delivery O2 Flow Rate FiO2 01/15/21 08:04 70 125/70 01/15/21 05:51 97.3 16 95 Room Air I & O 01/14/21 01/14/21 01/15/21 15:00 23:00 07:00 Intake Total 720 ml 360 ml Balance 720 ml 360 ml Current Medications: Meds: Current Medications Medications (Trade) Dose Ordered Sig/Brianne Route PRN Reason Start Time Stop Time Status Last Admin Dose Admin Lorazepam (Ativan) 1 mg STK-MED ONCE .ROUTE 12/02/20 14:25 12/02/20 14:25 DC Lorazepam (Ativan) 1 mg 1X ONCE PO 12/02/20 14:30 12/02/20 14:36 DC 12/02/20 14:31 Potassium/ Phosphorus/Sodium (Phos-Nak) 1 pkt 1X ONCE PO 12/02/20 15:00 12/02/20 15:01 Cancel Potassium Bicarbonate (Potassium Effervescent Tablet) 20 meq STK-MED ONCE .ROUTE 12/02/20 14:56 12/02/20 14:57 DC Potassium Bicarbonate (Potassium Effervescent Tablet) 20 meq 1X ONCE PO 12/02/20 15:00 12/02/20 15:01 DC 12/02/20 15:00 Acetaminophen (Tylenol) 650 mg PRN Q6HRS PRN PO MILD PAIN / TEMP > 100.3'F 12/02/20 15:45 01/14/21 19:50 Multi-Ingredient Ointment (Analgesic [place]) 1 itz PRN QID PRN TP MUSCLE PAIN 12/02/20 15:45 Al Hydroxide/Mg Hydroxide (Mylanta Plus Xs) 15 ml PRN AFTMEALHC PRN PO DYSPEPSIA 12/02/20 15:45 Magnesium Hydroxide (Milk Of Magnesia) 2,400 mg PRN QHS PRN PO CONSTIPATION 12/02/20 15:45 12/03/20 16:29 Lisinopril (Prinivil) 10 mg DAILY PO 12/03/20 09:00 01/15/21 08:04 Multivitamins/ Calcium (Thera-M Plus) 1 tab DAILY PO 12/03/20 09:00 01/15/21 08:05 Olanzapine (ZyPREXA ZYDIS) 2.5 mg PRN Q2HRS PRN PO PSYCHOSIS 12/02/20 17:00 01/13/21 08:09 Potassium Chloride (Klor-Con) 20 meq DAILYWBKFT PO 12/04/20 08:00 01/15/21 08:04 Sertraline HCl (Zoloft) 25 mg DAILY PO 12/04/20 09:00 12/06/20 21:00 DC 12/06/20 08:17 Sertraline HCl (Zoloft) 50 mg DAILY PO 12/07/20 09:00 01/15/21 08:06 Quetiapine Fumarate (SEROquel) 12.5 mg 0900 PO 12/09/20 09:00 12/10/20 16:51 DC 12/10/20 09:00 Quetiapine Fumarate (SEROquel) 12.5 mg ONCE ONCE PO 12/08/20 17:15 12/08/20 17:16 DC 12/08/20 17:15 Quetiapine Fumarate (SEROquel) 12.5 mg 1700 PO 12/09/20 18:00 01/02/21 11:54 DC 01/01/21 17:00 Quetiapine Fumarate (SEROquel) 25 mg 0900 PO 12/11/20 09:00 01/15/21 08:05 Divalproex Sodium (Depakote Sprinkles) 125 mg BID PO 12/12/20 21:00 12/13/20 10:16 DC 12/13/20 08:35 Trazodone HCl (Desyrel) 50 mg PRN QHS PRN PO INSOMNIA 12/13/20 00:30 01/14/21 19:49 Divalproex Sodium (Depakote Sprinkles) 125 mg 0900,1700 PO 12/13/20 17:00 12/13/20 17:49 DC 12/13/20 16:35 Valproic Acid (Depakene) 125 mg 0900,1700 PO 12/14/20 09:00 12/17/20 15:35 DC 12/17/20 08:39 Valproic Acid (Depakene) 125 mg [id number] PO 12/17/20 21:00 12/23/20 16:57 DC 12/23/20 14:05 Valproic Acid (Depakene) 125 mg QID PO 12/23/20 17:00 01/02/21 11:54 DC 01/02/21 08:35 Hydroxyzine HCl (Atarax) 10 mg PRN Q2HR PRN PO ITCHING 12/29/20 20:15 01/11/21 01:31 Quetiapine Fumarate (SEROquel) 25 mg 1700 PO 01/02/21 17:00 01/14/21 16:53 Valproic Acid (Depakene) 125 mg 1300,1700 PO 01/02/21 13:00 01/14/21 16:54 Quetiapine Fumarate (SEROquel) 12.5 mg 1200 PO 01/02/21 12:00 01/14/21 12:38 Valproic Acid (Depakene) 250 mg 0900,2100 PO 01/02/21 21:00 01/15/21 08:05 Oxycodone/ Acetaminophen (Percocet 7.5/ 325) 1 tab PRN Q6HRS PRN PO PAIN 01/13/21 16:45 I have reviewed the current psychotropics carefully including drug interactions. Risk benefit ratio favors no change other than as noted in my dictated progress note. Diagnosis: Problems: (1) Major neurocognitive disorder (2) Impulse control disorder, unspecified (3) Anxiety disorder, unspecified (4) Dementia, vascular, with depression (5) Dementia, vascular, with delusions (6) Dementia in Alzheimer's disease with depression (7) Dementia in Alzheimer's disease with delusions (8) Dementia of the Alzheimer's type with early onset with behavioral disturbance EMILY CHARLES MD Jan 15, 2021 09:12
--- NOTE | 2021-01-15 09:35 | PDOC ---
Exam Note: Earle Note: This note is a late entry for 01/14/2021 covers elements not covered in my initial note. Subjective: The patient was seen individually in the evening of 01/14/2021 with Catie APPIAH, discussed and reviewed the chart. The patient slept 7-1/4 hours previous night. The patient is less agitated overall. Review of Systems: Ambulation impaired. No CV, , pulmonary, eye system symptoms on review. Reliability poor. Mental Status Exam: The patient is oriented to herself. Insight and judgment, recent and remote memory, attention and concentration is poor consistent with her diagnoses. Laboratory Data: Reviewed. Impression: Major neurocognitive disorder Alzheimer vascular with delusion, depression, and behavioral disturbance. Anxiety disorder unspecified. Impulse control disorder unspecified. Plan: No change from initial note. Assessment: Vital Signs/I&O: Vital Signs Date Time Temp Pulse Resp B/P (MAP) Pulse Ox O2 Delivery O2 Flow Rate FiO2 01/15/21 08:04 70 125/70 01/15/21 05:51 97.3 16 95 Room Air I & O 01/14/21 01/14/21 01/15/21 15:00 23:00 07:00 Intake Total 720 ml 360 ml Balance 720 ml 360 ml Current Medications: Meds: Current Medications Medications (Trade) Dose Ordered Sig/Brianne Route PRN Reason Start Time Stop Time Status Last Admin Dose Admin Lorazepam (Ativan) 1 mg STK-MED ONCE .ROUTE 12/02/20 14:25 12/02/20 14:25 DC Lorazepam (Ativan) 1 mg 1X ONCE PO 12/02/20 14:30 12/02/20 14:36 DC 12/02/20 14:31 Potassium/ Phosphorus/Sodium (Phos-Nak) 1 pkt 1X ONCE PO 12/02/20 15:00 12/02/20 15:01 Cancel Potassium Bicarbonate (Potassium Effervescent Tablet) 20 meq STK-MED ONCE .ROUTE 12/02/20 14:56 12/02/20 14:57 DC Potassium Bicarbonate (Potassium Effervescent Tablet) 20 meq 1X ONCE PO 12/02/20 15:00 12/02/20 15:01 DC 12/02/20 15:00 Acetaminophen (Tylenol) 650 mg PRN Q6HRS PRN PO MILD PAIN / TEMP > 100.3'F 12/02/20 15:45 01/14/21 19:50 Multi-Ingredient Ointment (Analgesic [place]) 1 itz PRN QID PRN TP MUSCLE PAIN 12/02/20 15:45 Al Hydroxide/Mg Hydroxide (Mylanta Plus Xs) 15 ml PRN AFTMEALHC PRN PO DYSPEPSIA 12/02/20 15:45 Magnesium Hydroxide (Milk Of Magnesia) 2,400 mg PRN QHS PRN PO CONSTIPATION 12/02/20 15:45 12/03/20 16:29 Lisinopril (Prinivil) 10 mg DAILY PO 12/03/20 09:00 01/15/21 08:04 Multivitamins/ Calcium (Thera-M Plus) 1 tab DAILY PO 12/03/20 09:00 01/15/21 08:05 Olanzapine (ZyPREXA ZYDIS) 2.5 mg PRN Q2HRS PRN PO PSYCHOSIS 12/02/20 17:00 01/13/21 08:09 Potassium Chloride (Klor-Con) 20 meq DAILYWBKFT PO 12/04/20 08:00 01/15/21 08:04 Sertraline HCl (Zoloft) 25 mg DAILY PO 12/04/20 09:00 12/06/20 21:00 DC 12/06/20 08:17 Sertraline HCl (Zoloft) 50 mg DAILY PO 12/07/20 09:00 01/15/21 08:06 Quetiapine Fumarate (SEROquel) 12.5 mg 0900 PO 12/09/20 09:00 12/10/20 16:51 DC 12/10/20 09:00 Quetiapine Fumarate (SEROquel) 12.5 mg ONCE ONCE PO 12/08/20 17:15 12/08/20 17:16 DC 12/08/20 17:15 Quetiapine Fumarate (SEROquel) 12.5 mg 1700 PO 12/09/20 18:00 01/02/21 11:54 DC 01/01/21 17:00 Quetiapine Fumarate (SEROquel) 25 mg 0900 PO 12/11/20 09:00 01/15/21 08:05 Divalproex Sodium (Depakote Sprinkles) 125 mg BID PO 12/12/20 21:00 12/13/20 10:16 DC 12/13/20 08:35 Trazodone HCl (Desyrel) 50 mg PRN QHS PRN PO INSOMNIA 12/13/20 00:30 01/14/21 19:49 Divalproex Sodium (Depakote Sprinkles) 125 mg 0900,1700 PO 12/13/20 17:00 12/13/20 17:49 DC 12/13/20 16:35 Valproic Acid (Depakene) 125 mg 0900,1700 PO 12/14/20 09:00 12/17/20 15:35 DC 12/17/20 08:39 Valproic Acid (Depakene) 125 mg [id number] PO 12/17/20 21:00 12/23/20 16:57 DC 12/23/20 14:05 Valproic Acid (Depakene) 125 mg QID PO 12/23/20 17:00 01/02/21 11:54 DC 01/02/21 08:35 Hydroxyzine HCl (Atarax) 10 mg PRN Q2HR PRN PO ITCHING 12/29/20 20:15 01/11/21 01:31 Quetiapine Fumarate (SEROquel) 25 mg 1700 PO 01/02/21 17:00 01/14/21 16:53 Valproic Acid (Depakene) 125 mg 1300,1700 PO 01/02/21 13:00 01/14/21 16:54 Quetiapine Fumarate (SEROquel) 12.5 mg 1200 PO 01/02/21 12:00 01/14/21 12:38 Valproic Acid (Depakene) 250 mg 0900,2100 PO 01/02/21 21:00 01/15/21 08:05 Oxycodone/ Acetaminophen (Percocet 7.5/ 325) 1 tab PRN Q6HRS PRN PO PAIN 01/13/21 16:45 I have reviewed the current psychotropics carefully including drug interactions. Risk benefit ratio favors no change other than as noted in my dictated progress note. Diagnosis: Problems: (1) Major neurocognitive disorder (2) Impulse control disorder, unspecified (3) Anxiety disorder, unspecified (4) Dementia, vascular, with depression (5) Dementia, vascular, with delusions (6) Dementia in Alzheimer's disease with depression (7) Dementia in Alzheimer's disease with delusions (8) Dementia of the Alzheimer's type with early onset with behavioral disturbance EMILY CHARLES MD Jan 15, 2021 09:35
[2021-01-15 15:45] VITALS: BP 100/64
[2021-01-16] MEDS: traZODone 50 MG TABLET. PO PRN (00:05)
[2021-01-16 06:16] VITALS: BP 122/75
--- NOTE | 2021-01-16 06:48 | PDOC ---
Exam Note: Earle Note: Late entry for 01/15/2021. Please also refer to the separate dictated note~for this date of service dictated separately.~Patient seen individually. Discussed the patient with Nursing staff reviewed the chart.~Reviewed interim history and current functioning. Reviewed vital signs,~Labs/ Radiology~and current medic ations noted below. Continue current treatment with the changes noted in the dictated addendum note Assessment: Vital Signs/I&O: Vital Signs Date Time Temp Pulse Resp B/P (MAP) Pulse Ox O2 Delivery O2 Flow Rate FiO2 01/16/21 06:16 96.9 66 16 122/75 (91) 96 Room Air I & O 01/15/21 01/15/21 01/16/21 15:00 23:00 07:00 Intake Total 240 ml 240 ml Balance 240 ml 240 ml Current Medications: Meds: Current Medications Medications (Trade) Dose Ordered Sig/Brianne Route PRN Reason Start Time Stop Time Status Last Admin Dose Admin Lorazepam (Ativan) 1 mg STK-MED ONCE .ROUTE 12/02/20 14:25 12/02/20 14:25 DC Lorazepam (Ativan) 1 mg 1X ONCE PO 12/02/20 14:30 12/02/20 14:36 DC 12/02/20 14:31 Potassium/ Phosphorus/Sodium (Phos-Nak) 1 pkt 1X ONCE PO 12/02/20 15:00 12/02/20 15:01 Cancel Potassium Bicarbonate (Potassium Effervescent Tablet) 20 meq STK-MED ONCE .ROUTE 12/02/20 14:56 12/02/20 14:57 DC Potassium Bicarbonate (Potassium Effervescent Tablet) 20 meq 1X ONCE PO 12/02/20 15:00 12/02/20 15:01 DC 12/02/20 15:00 Acetaminophen (Tylenol) 650 mg PRN Q6HRS PRN PO MILD PAIN / TEMP > 100.3'F 12/02/20 15:45 01/14/21 19:50 Multi-Ingredient Ointment (Analgesic [place]) 1 itz PRN QID PRN TP MUSCLE PAIN 12/02/20 15:45 Al Hydroxide/Mg Hydroxide (Mylanta Plus Xs) 15 ml PRN AFTMEALHC PRN PO DYSPEPSIA 12/02/20 15:45 Magnesium Hydroxide (Milk Of Magnesia) 2,400 mg PRN QHS PRN PO CONSTIPATION 12/02/20 15:45 12/03/20 16:29 Lisinopril (Prinivil) 10 mg DAILY PO 12/03/20 09:00 01/15/21 08:04 Multivitamins/ Calcium (Thera-M Plus) 1 tab DAILY PO 12/03/20 09:00 01/15/21 08:05 Olanzapine (ZyPREXA ZYDIS) 2.5 mg PRN Q2HRS PRN PO PSYCHOSIS 12/02/20 17:00 01/15/21 17:06 Potassium Chloride (Klor-Con) 20 meq DAILYWBKFT PO 12/04/20 08:00 01/15/21 08:04 Sertraline HCl (Zoloft) 25 mg DAILY PO 12/04/20 09:00 12/06/20 21:00 DC 12/06/20 08:17 Sertraline HCl (Zoloft) 50 mg DAILY PO 12/07/20 09:00 01/15/21 08:06 Quetiapine Fumarate (SEROquel) 12.5 mg 0900 PO 12/09/20 09:00 12/10/20 16:51 DC 12/10/20 09:00 Quetiapine Fumarate (SEROquel) 12.5 mg ONCE ONCE PO 12/08/20 17:15 12/08/20 17:16 DC 12/08/20 17:15 Quetiapine Fumarate (SEROquel) 12.5 mg 1700 PO 12/09/20 18:00 01/02/21 11:54 DC 01/01/21 17:00 Quetiapine Fumarate (SEROquel) 25 mg 0900 PO 12/11/20 09:00 01/15/21 08:05 Divalproex Sodium (Depakote Sprinkles) 125 mg BID PO 12/12/20 21:00 12/13/20 10:16 DC 12/13/20 08:35 Trazodone HCl (Desyrel) 50 mg PRN QHS PRN PO INSOMNIA 12/13/20 00:30 01/16/21 00:05 Divalproex Sodium (Depakote Sprinkles) 125 mg 0900,1700 PO 12/13/20 17:00 12/13/20 17:49 DC 12/13/20 16:35 Valproic Acid (Depakene) 125 mg 0900,1700 PO 12/14/20 09:00 12/17/20 15:35 DC 12/17/20 08:39 Valproic Acid (Depakene) 125 mg [id number] PO 12/17/20 21:00 12/23/20 16:57 DC 12/23/20 14:05 Valproic Acid (Depakene) 125 mg QID PO 12/23/20 17:00 01/02/21 11:54 DC 01/02/21 08:35 Hydroxyzine HCl (Atarax) 10 mg PRN Q2HR PRN PO ITCHING 12/29/20 20:15 01/11/21 01:31 Quetiapine Fumarate (SEROquel) 25 mg 1700 PO 01/02/21 17:00 01/15/21 17:03 Valproic Acid (Depakene) 125 mg 1300,1700 PO 01/02/21 13:00 01/15/21 17:06 Quetiapine Fumarate (SEROquel) 12.5 mg 1200 PO 01/02/21 12:00 01/15/21 12:11 Valproic Acid (Depakene) 250 mg 0900,2100 PO 01/02/21 21:00 01/15/21 19:38 Oxycodone/ Acetaminophen (Percocet 7.5/ 325) 1 tab PRN Q6HRS PRN PO PAIN 01/13/21 16:45 I have reviewed the current psychotropics carefully including drug interactions. Risk benefit ratio favors no change other than as noted in my dictated progress note. 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
[2021-01-16] MEDS: POTASSIUM CHLORIDE 20 MEQ TABLET.ER. PO SCH (08:37)
[2021-01-16] MEDS: QUEtiapine 25 MG TABLET. PO SCH ×3 (08:37→17:20)
[2021-01-16] MEDS: MULTIVITAMIN with MINERAL TABLET. PO SCH (08:37)
[2021-01-16] MEDS: LISINOPRIL 10 MG TABLET PO SCH (08:38)
[2021-01-16] MEDS: VALPROATE ACID 250 MG/5 ML ORAL SOLUTION PO SCH ×4 (08:38→20:11)
[2021-01-16] MEDS: SERTRALINE 50 MG TABLET. PO SCH (08:38)
--- NOTE | 2021-01-16 10:05 | TX PLAN ---
Interdisciplinary Tx Plan Admission Information Dec 02, 2020 at 15:25 Legal Status (on Admission): Voluntary DPOA/Guardian Name: Aron Razo Contact Other Contact Name: [facility] Other Contact Verified Code Status: DNR Allergies: Coded Allergies: No Known Drug Allergies (Unverified , 12/02/20) Diagnoses Primary Diagnosis: Major Neurocognitive D/O, Vascular Alzheimers with delusions and depression Reasons for Admission: Aggressive, Sig. Change Sleep, Combative, Confusion/Disoriented, Poor impulse control, Other Problem in Patient's Words: She has declined pretty quickly in the last 3 months. Additional Admission Comments: According to the intake, pt was biting, hitting staff at LT, throwing things, agitated, restless, wandering, attempts to elope, poor sleep, poor intake, throwing cups of water on LTC staff, attempted to elope out of the back door of [facility] ED during medical clearance. Problems Active Problems: restless wandering increased confusion Inactive Problems: medication compliance Pt Strengths/Limitations Ability for [place]: Poor Cognitive Functioning/Ability: Poor Communication Skills/Ability: Poor Financial Resources: Good Insight/Judgement: Poor Intellectual Ability: Poor Physical Health: Fair Social Skills: Fair Stability in Family: Good Stability in School/Work: Poor Verbal Skills: Poor Discharge Criteria Discharge Criteria: No need for close observ., Adequate arrangements @DC, Improved behavior, Improved mood/thought Preliminary Discharge Plan Preliminary DC Plan: Current Living Arrange. Initial D/C Plan Unknown at this time Identified Discharge Needs: Pt may bring pt home; unknown at this time. Currently Utilized Resources Currently Utilized Resources/P: Primary Care Physician Identified Problems/Hx/Goals Objectives/Short-Term Goals Short Term Goals: Dec. Aggression, Dec. Outbursts, Medication Stabilization, Monitor Med Effects, Promote Coping Skill Short Term Goals in Patient's: N/A Interventions/Frequency Staff Interventions/Frequency&: Psychiatrist to assess pt at least 3x per week for medication management. Social Wok to assess pt at least 2x per week to identify barriers to care and discharge planning. Nursing to assess medication effects, behavior modification and complete 15 minute checks. 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 Education: Pt did graduate high school (12th grade); attended [employer] in [place] with her B.A. in [place] degree. Community Follow-up Primary Care Physician Mental Health Services Treatment Plan Explained Patient/Assistant Drafter had this treatment plan explained to him/her as indicated by the signature below and has been given the opportunity to ask questions and make suggestions: Date: Patient/Assistant Drafter Signature: Status Update Update Pt Aron participated in tx team via telephone. Pt is eating 50-75% of meals and at times needs encouragement to eat. Pt is sleeping 7.5 hours per night; receiving a PRN Trazodone last HS. Pt continues to wander but is not exit seeking; confused and sometimes restless but redirectable. Pt participated in at least 3 groups this week with moderate participation. Pt will discharge to [facility] after the 14 day quarantine which is 01/23. HEDY BARRON Jan 16, 2021 10:05
[2021-01-16 15:42] VITALS: BP 90/56
--- NOTE | 2021-01-16 22:06 | PDOC ---
Exam Note: Earle Note: Please also refer to the separate dictated note~for this date of service dictated separately.~Patient seen individually. Discussed the patient with Nursing staff reviewed the chart.~Reviewed interim history and current functioning. Reviewed vital signs,~Labs/ Radiology~and current medications noted below. Continue current treatment with the changes noted in the dictated addendum note Assessment: Vital Signs/I&O: Vital Signs Date Time Temp Pulse Resp B/P (MAP) Pulse Ox O2 Delivery O2 Flow Rate FiO2 01/16/21 15:42 98.4 66 18 90/56 (67) 99 01/16/21 06:16 Room Air I & O 01/15/21 01/15/21 01/16/21 15:00 23:00 07:00 Intake Total 240 ml 240 ml Balance 240 ml 240 ml Current Medications: Meds: Current Medications Medications (Trade) Dose Ordered Sig/Brianne Route PRN Reason Start Time Stop Time Status Last Admin Dose Admin Lorazepam (Ativan) 1 mg STK-MED ONCE .ROUTE 12/02/20 14:25 12/02/20 14:25 DC Lorazepam (Ativan) 1 mg 1X ONCE PO 12/02/20 14:30 12/02/20 14:36 DC 12/02/20 14:31 Potassium/ Phosphorus/Sodium (Phos-Nak) 1 pkt 1X ONCE PO 12/02/20 15:00 12/02/20 15:01 Cancel Potassium Bicarbonate (Potassium Effervescent Tablet) 20 meq STK-MED ONCE .ROUTE 12/02/20 14:56 12/02/20 14:57 DC Potassium Bicarbonate (Potassium Effervescent Tablet) 20 meq 1X ONCE PO 12/02/20 15:00 12/02/20 15:01 DC 12/02/20 15:00 Acetaminophen (Tylenol) 650 mg PRN Q6HRS PRN PO MILD PAIN / TEMP > 100.3'F 12/02/20 15:45 01/14/21 19:50 Multi-Ingredient Ointment (Analgesic [place]) 1 itz PRN QID PRN TP MUSCLE PAIN 12/02/20 15:45 Al Hydroxide/Mg Hydroxide (Mylanta Plus Xs) 15 ml PRN AFTMEALHC PRN PO DYSPEPSIA 12/02/20 15:45 Magnesium Hydroxide (Milk Of Magnesia) 2,400 mg PRN QHS PRN PO CONSTIPATION 12/02/20 15:45 12/03/20 16:29 Lisinopril (Prinivil) 10 mg DAILY PO 12/03/20 09:00 01/16/21 08:38 Multivitamins/ Calcium (Thera-M Plus) 1 tab DAILY PO 12/03/20 09:00 01/16/21 08:37 Olanzapine (ZyPREXA ZYDIS) 2.5 mg PRN Q2HRS PRN PO PSYCHOSIS 12/02/20 17:00 01/15/21 17:06 Potassium Chloride (Klor-Con) 20 meq DAILYWBKFT PO 12/04/20 08:00 01/16/21 08:37 Sertraline HCl (Zoloft) 25 mg DAILY PO 12/04/20 09:00 12/06/20 21:00 DC 12/06/20 08:17 Sertraline HCl (Zoloft) 50 mg DAILY PO 12/07/20 09:00 01/16/21 08:38 Quetiapine Fumarate (SEROquel) 12.5 mg 0900 PO 12/09/20 09:00 12/10/20 16:51 DC 12/10/20 09:00 Quetiapine Fumarate (SEROquel) 12.5 mg ONCE ONCE PO 12/08/20 17:15 12/08/20 17:16 DC 12/08/20 17:15 Quetiapine Fumarate (SEROquel) 12.5 mg 1700 PO 12/09/20 18:00 01/02/21 11:54 DC 01/01/21 17:00 Quetiapine Fumarate (SEROquel) 25 mg 0900 PO 12/11/20 09:00 01/16/21 08:37 Divalproex Sodium (Depakote Sprinkles) 125 mg BID PO 12/12/20 21:00 12/13/20 10:16 DC 12/13/20 08:35 Trazodone HCl (Desyrel) 50 mg PRN QHS PRN PO INSOMNIA 12/13/20 00:30 01/16/21 00:05 Divalproex Sodium (Depakote Sprinkles) 125 mg 0900,1700 PO 12/13/20 17:00 12/13/20 17:49 DC 12/13/20 16:35 Valproic Acid (Depakene) 125 mg 0900,1700 PO 12/14/20 09:00 12/17/20 15:35 DC 12/17/20 08:39 Valproic Acid (Depakene) 125 mg [id number] PO 12/17/20 21:00 12/23/20 16:57 DC 12/23/20 14:05 Valproic Acid (Depakene) 125 mg QID PO 12/23/20 17:00 01/02/21 11:54 DC 01/02/21 08:35 Hydroxyzine HCl (Atarax) 10 mg PRN Q2HR PRN PO ITCHING 12/29/20 20:15 01/11/21 01:31 Quetiapine Fumarate (SEROquel) 25 mg 1700 PO 01/02/21 17:00 01/16/21 17:20 Valproic Acid (Depakene) 125 mg 1300,1700 PO 01/02/21 13:00 01/16/21 17:22 Quetiapine Fumarate (SEROquel) 12.5 mg 1200 PO 01/02/21 12:00 01/16/21 12:09 Valproic Acid (Depakene) 250 mg 0900,2100 PO 01/02/21 21:00 01/16/21 20:11 Oxycodone/ Acetaminophen (Percocet 7.5/ 325) 1 tab PRN Q6HRS PRN PO PAIN 01/13/21 16:45 I have reviewed the current psychotropics carefully including drug interactions. Risk benefit ratio favors no change other than as noted in my dictated progress note. Diagnosis: Problems: (1) Major neurocognitive disorder (2) Impulse control disorder, unspecified (3) Anxiety disorder, unspecified (4) Dementia, vascular, with depression (5) Dementia, vascular, with delusions (6) Dementia in Alzheimer's disease with depression (7) Dementia in Alzheimer's disease with delusions (8) Dementia of the Alzheimer's type with early onset with behavioral disturbance EMILY CHARLES MD Jan 16, 2021 22:06
[2021-01-17] MEDS: traZODone 50 MG TABLET. PO PRN ×2 (01:11→20:53)
[2021-01-17 06:19] VITALS: BP 103/57
--- NOTE | 2021-01-17 06:33 | PDOC ---
Exam Note: Earle Note: This note is a late entry for 01/15/2021 covers elements not covered in my initial note. Subjective: The patient was seen individually in the evening of 01/15/2021 with Kiki APPIAH, discussed and reviewed the chart. The patient slept 7 hours previous night. The patient has been confused, pacing. Received Zyprexa at dinner time because she is anxious, somewhat wandering. Attended medication education groups. She remains confused. Review of Systems: Ambulation impaired. No CV, , pulmonary, eye system symptoms on review. Reliability poor. Mental Status Exam: The patient is oriented to herself. Insight and judgment, recent and remote memory, attention and concentration is poor consistent with her diagnoses. Laboratory Data: Reviewed. Impression: Major neurocognitive disorder Alzheimer vascular with delusion, depression, and behavioral disturbance. Anxiety disorder unspecified. Impulse control disorder unspecified. Plan: No change from initial note. Assessment: Vital Signs/I&O: Vital Signs Date Time Temp Pulse Resp B/P (MAP) Pulse Ox O2 Delivery O2 Flow Rate FiO2 01/17/21 06:19 97.6 60 20 103/57 (72) 94 Room Air I & O 01/16/21 01/16/21 01/17/21 15:00 23:00 07:00 Intake Total 240 ml 480 ml Balance 240 ml 480 ml Current Medications: Meds: Current Medications Medications (Trade) Dose Ordered Sig/Brianne Route PRN Reason Start Time Stop Time Status Last Admin Dose Admin Lorazepam (Ativan) 1 mg STK-MED ONCE .ROUTE 12/02/20 14:25 12/02/20 14:25 DC Lorazepam (Ativan) 1 mg 1X ONCE PO 12/02/20 14:30 12/02/20 14:36 DC 12/02/20 14:31 Potassium/ Phosphorus/Sodium (Phos-Nak) 1 pkt 1X ONCE PO 12/02/20 15:00 12/02/20 15:01 Cancel Potassium Bicarbonate (Potassium Effervescent Tablet) 20 meq STK-MED ONCE .ROUTE 12/02/20 14:56 12/02/20 14:57 DC Potassium Bicarbonate (Potassium Effervescent Tablet) 20 meq 1X ONCE PO 12/02/20 15:00 12/02/20 15:01 DC 12/02/20 15:00 Acetaminophen (Tylenol) 650 mg PRN Q6HRS PRN PO MILD PAIN / TEMP > 100.3'F 12/02/20 15:45 01/14/21 19:50 Multi-Ingredient Ointment (Analgesic [place]) 1 itz PRN QID PRN TP MUSCLE PAIN 12/02/20 15:45 Al Hydroxide/Mg Hydroxide (Mylanta Plus Xs) 15 ml PRN AFTMEALHC PRN PO DYSPEPSIA 12/02/20 15:45 Magnesium Hydroxide (Milk Of Magnesia) 2,400 mg PRN QHS PRN PO CONSTIPATION 12/02/20 15:45 12/03/20 16:29 Lisinopril (Prinivil) 10 mg DAILY PO 12/03/20 09:00 01/16/21 08:38 Multivitamins/ Calcium (Thera-M Plus) 1 tab DAILY PO 12/03/20 09:00 01/16/21 08:37 Olanzapine (ZyPREXA ZYDIS) 2.5 mg PRN Q2HRS PRN PO PSYCHOSIS 12/02/20 17:00 01/15/21 17:06 Potassium Chloride (Klor-Con) 20 meq DAILYWBKFT PO 12/04/20 08:00 01/16/21 08:37 Sertraline HCl (Zoloft) 25 mg DAILY PO 12/04/20 09:00 12/06/20 21:00 DC 12/06/20 08:17 Sertraline HCl (Zoloft) 50 mg DAILY PO 12/07/20 09:00 01/16/21 08:38 Quetiapine Fumarate (SEROquel) 12.5 mg 0900 PO 12/09/20 09:00 12/10/20 16:51 DC 12/10/20 09:00 Quetiapine Fumarate (SEROquel) 12.5 mg ONCE ONCE PO 12/08/20 17:15 12/08/20 17:16 DC 12/08/20 17:15 Quetiapine Fumarate (SEROquel) 12.5 mg 1700 PO 12/09/20 18:00 01/02/21 11:54 DC 01/01/21 17:00 Quetiapine Fumarate (SEROquel) 25 mg 0900 PO 12/11/20 09:00 01/16/21 08:37 Divalproex Sodium (Depakote Sprinkles) 125 mg BID PO 12/12/20 21:00 12/13/20 10:16 DC 12/13/20 08:35 Trazodone HCl (Desyrel) 50 mg PRN QHS PRN PO INSOMNIA 12/13/20 00:30 01/17/21 01:11 Divalproex Sodium (Depakote Sprinkles) 125 mg 0900,1700 PO 12/13/20 17:00 12/13/20 17:49 DC 12/13/20 16:35 Valproic Acid (Depakene) 125 mg 0900,1700 PO 12/14/20 09:00 12/17/20 15:35 DC 12/17/20 08:39 Valproic Acid (Depakene) 125 mg [id number] PO 12/17/20 21:00 12/23/20 16:57 DC 12/23/20 14:05 Valproic Acid (Depakene) 125 mg QID PO 12/23/20 17:00 01/02/21 11:54 DC 01/02/21 08:35 Hydroxyzine HCl (Atarax) 10 mg PRN Q2HR PRN PO ITCHING 12/29/20 20:15 01/11/21 01:31 Quetiapine Fumarate (SEROquel) 25 mg 1700 PO 01/02/21 17:00 01/16/21 17:20 Valproic Acid (Depakene) 125 mg 1300,1700 PO 01/02/21 13:00 01/16/21 17:22 Quetiapine Fumarate (SEROquel) 12.5 mg 1200 PO 01/02/21 12:00 01/16/21 12:09 Valproic Acid (Depakene) 250 mg 0900,2100 PO 01/02/21 21:00 01/16/21 20:11 Oxycodone/ Acetaminophen (Percocet 7.5/ 325) 1 tab PRN Q6HRS PRN PO PAIN 01/13/21 16:45 I have reviewed the current psychotropics carefully including drug interactions. Risk benefit ratio favors no change other than as noted in my dictated progress note. 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
--- NOTE | 2021-01-17 06:54 | PDOC ---
Exam Note: Earle Note: This note is a late entry for 01/16/2021overs elements not covered in my initial note. Subjective: The patient was seen individually in the morning of 01/16/2021 for a treatment team meeting with Maryana Rice, Cathy Hargrove (social welfare administrator), Elizabeth, activity therapy and Catie RN, discussed and reviewed the chart. The patient slept 7 hours previous night. Her Antonio attended the meeting. She attended 3 groups in the past one week. She remains confused, wandering, redirects. She is accepted at [facility] from next week. Review of Systems: Ambulation impaired. No CV, , pulmonary, eye system symptoms on review. Reliability poor. Mental Status Exam: The patient is oriented to herself. Insight and judgment, recent and remote memory, attention and concentration is poor consistent with her diagnoses. Laboratory Data: Reviewed. Impression: Major neurocognitive disorder Alzheimer vascular with delusion, depression, and behavioral disturbance. Anxiety disorder unspecified. Impulse control disorder unspecified. Plan: No change from initial note. Assessment: Vital Signs/I&O: Vital Signs Date Time Temp Pulse Resp B/P (MAP) Pulse Ox O2 Delivery O2 Flow Rate FiO2 01/17/21 06:19 97.6 60 20 103/57 (72) 94 Room Air I & O 01/16/21 01/16/21 01/17/21 15:00 23:00 07:00 Intake Total 240 ml 480 ml Balance 240 ml 480 ml Current Medications: Meds: Current Medications Medications (Trade) Dose Ordered Sig/Brianne Route PRN Reason Start Time Stop Time Status Last Admin Dose Admin Lorazepam (Ativan) 1 mg STK-MED ONCE .ROUTE 12/02/20 14:25 12/02/20 14:25 DC Lorazepam (Ativan) 1 mg 1X ONCE PO 12/02/20 14:30 12/02/20 14:36 DC 12/02/20 14:31 Potassium/ Phosphorus/Sodium (Phos-Nak) 1 pkt 1X ONCE PO 12/02/20 15:00 12/02/20 15:01 Cancel Potassium Bicarbonate (Potassium Effervescent Tablet) 20 meq STK-MED ONCE .ROUTE 12/02/20 14:56 12/02/20 14:57 DC Potassium Bicarbonate (Potassium Effervescent Tablet) 20 meq 1X ONCE PO 12/02/20 15:00 12/02/20 15:01 DC 12/02/20 15:00 Acetaminophen (Tylenol) 650 mg PRN Q6HRS PRN PO MILD PAIN / TEMP > 100.3'F 12/02/20 15:45 01/14/21 19:50 Multi-Ingredient Ointment (Analgesic [place]) 1 itz PRN QID PRN TP MUSCLE PAIN 12/02/20 15:45 Al Hydroxide/Mg Hydroxide (Mylanta Plus Xs) 15 ml PRN AFTMEALHC PRN PO DYSPEPSIA 12/02/20 15:45 Magnesium Hydroxide (Milk Of Magnesia) 2,400 mg PRN QHS PRN PO CONSTIPATION 12/02/20 15:45 12/03/20 16:29 Lisinopril (Prinivil) 10 mg DAILY PO 12/03/20 09:00 01/16/21 08:38 Multivitamins/ Calcium (Thera-M Plus) 1 tab DAILY PO 12/03/20 09:00 01/16/21 08:37 Olanzapine (ZyPREXA ZYDIS) 2.5 mg PRN Q2HRS PRN PO PSYCHOSIS 12/02/20 17:00 01/15/21 17:06 Potassium Chloride (Klor-Con) 20 meq DAILYWBKFT PO 12/04/20 08:00 01/16/21 08:37 Sertraline HCl (Zoloft) 25 mg DAILY PO 12/04/20 09:00 12/06/20 21:00 DC 12/06/20 08:17 Sertraline HCl (Zoloft) 50 mg DAILY PO 12/07/20 09:00 01/16/21 08:38 Quetiapine Fumarate (SEROquel) 12.5 mg 0900 PO 12/09/20 09:00 12/10/20 16:51 DC 12/10/20 09:00 Quetiapine Fumarate (SEROquel) 12.5 mg ONCE ONCE PO 12/08/20 17:15 12/08/20 17:16 DC 12/08/20 17:15 Quetiapine Fumarate (SEROquel) 12.5 mg 1700 PO 12/09/20 18:00 01/02/21 11:54 DC 01/01/21 17:00 Quetiapine Fumarate (SEROquel) 25 mg 0900 PO 12/11/20 09:00 01/16/21 08:37 Divalproex Sodium (Depakote Sprinkles) 125 mg BID PO 12/12/20 21:00 12/13/20 10:16 DC 12/13/20 08:35 Trazodone HCl (Desyrel) 50 mg PRN QHS PRN PO INSOMNIA 12/13/20 00:30 01/17/21 01:11 Divalproex Sodium (Depakote Sprinkles) 125 mg 0900,1700 PO 12/13/20 17:00 12/13/20 17:49 DC 12/13/20 16:35 Valproic Acid (Depakene) 125 mg 0900,1700 PO 12/14/20 09:00 12/17/20 15:35 DC 12/17/20 08:39 Valproic Acid (Depakene) 125 mg [id number] PO 12/17/20 21:00 12/23/20 16:57 DC 12/23/20 14:05 Valproic Acid (Depakene) 125 mg QID PO 12/23/20 17:00 01/02/21 11:54 DC 01/02/21 08:35 Hydroxyzine HCl (Atarax) 10 mg PRN Q2HR PRN PO ITCHING 12/29/20 20:15 01/11/21 01:31 Quetiapine Fumarate (SEROquel) 25 mg 1700 PO 01/02/21 17:00 01/16/21 17:20 Valproic Acid (Depakene) 125 mg 1300,1700 PO 01/02/21 13:00 01/16/21 17:22 Quetiapine Fumarate (SEROquel) 12.5 mg 1200 PO 01/02/21 12:00 01/16/21 12:09 Valproic Acid (Depakene) 250 mg 0900,2100 PO 01/02/21 21:00 01/16/21 20:11 Oxycodone/ Acetaminophen (Percocet 7.5/ 325) 1 tab PRN Q6HRS PRN PO PAIN 01/13/21 16:45 I have reviewed the current psychotropics carefully including drug interactions. Risk benefit ratio favors no change other than as noted in my dictated progress note. Diagnosis: Problems: (1) Major neurocognitive disorder (2) Impulse control disorder, unspecified (3) Anxiety disorder, unspecified (4) Dementia, vascular, with depression (5) Dementia, vascular, with delusions (6) Dementia in Alzheimer's disease with depression (7) Dementia in Alzheimer's disease with delusions (8) Dementia of the Alzheimer's type with early onset with behavioral disturbance EMILY CHARLES MD Jan 17, 2021 06:54
[2021-01-17] MEDS: POTASSIUM CHLORIDE 20 MEQ TABLET.ER. PO SCH (08:37)
[2021-01-17] MEDS: MULTIVITAMIN with MINERAL TABLET. PO SCH (08:38)
[2021-01-17] MEDS: LISINOPRIL 10 MG TABLET PO SCH (08:38)
[2021-01-17] MEDS: SERTRALINE 50 MG TABLET. PO SCH (08:38)
[2021-01-17] MEDS: VALPROATE ACID 250 MG/5 ML ORAL SOLUTION PO SCH ×4 (08:38→20:53)
[2021-01-17] MEDS: QUEtiapine 25 MG TABLET. PO SCH ×3 (08:38→17:00)
[2021-01-17 15:52] VITALS: BP 149/61
--- NOTE | 2021-01-17 22:09 | PDOC ---
Exam Note: Earle Note: Please also refer to the separate dictated note~for this date of service dictated separately.~Patient seen individually. Discussed the patient with Nursing staff reviewed the chart.~Reviewed interim history and current functioning. Reviewed vital signs,~Labs/ Radiology~and current medications noted below. Continue current treatment with the changes noted in the dictated addendum note Assessment: Vital Signs/I&O: Vital Signs Date Time Temp Pulse Resp B/P (MAP) Pulse Ox O2 Delivery O2 Flow Rate FiO2 01/17/21 15:52 97.3 20 20 149/61 (90) 97 01/17/21 06:19 Room Air I & O 01/16/21 01/16/21 01/17/21 15:00 23:00 07:00 Intake Total 240 ml 480 ml Balance 240 ml 480 ml Current Medications: Meds: Current Medications Medications (Trade) Dose Ordered Sig/Brianne Route PRN Reason Start Time Stop Time Status Last Admin Dose Admin Lorazepam (Ativan) 1 mg STK-MED ONCE .ROUTE 12/02/20 14:25 12/02/20 14:25 DC Lorazepam (Ativan) 1 mg 1X ONCE PO 12/02/20 14:30 12/02/20 14:36 DC 12/02/20 14:31 Potassium/ Phosphorus/Sodium (Phos-Nak) 1 pkt 1X ONCE PO 12/02/20 15:00 12/02/20 15:01 Cancel Potassium Bicarbonate (Potassium Effervescent Tablet) 20 meq STK-MED ONCE .ROUTE 12/02/20 14:56 12/02/20 14:57 DC Potassium Bicarbonate (Potassium Effervescent Tablet) 20 meq 1X ONCE PO 12/02/20 15:00 12/02/20 15:01 DC 12/02/20 15:00 Acetaminophen (Tylenol) 650 mg PRN Q6HRS PRN PO MILD PAIN / TEMP > 100.3'F 12/02/20 15:45 01/14/21 19:50 Multi-Ingredient Ointment (Analgesic [place]) 1 itz PRN QID PRN TP MUSCLE PAIN 12/02/20 15:45 Al Hydroxide/Mg Hydroxide (Mylanta Plus Xs) 15 ml PRN AFTMEALHC PRN PO DYSPEPSIA 12/02/20 15:45 Magnesium Hydroxide (Milk Of Magnesia) 2,400 mg PRN QHS PRN PO CONSTIPATION 12/02/20 15:45 12/03/20 16:29 Lisinopril (Prinivil) 10 mg DAILY PO 12/03/20 09:00 01/17/21 08:38 Multivitamins/ Calcium (Thera-M Plus) 1 tab DAILY PO 12/03/20 09:00 01/17/21 08:38 Olanzapine (ZyPREXA ZYDIS) 2.5 mg PRN Q2HRS PRN PO PSYCHOSIS 12/02/20 17:00 01/15/21 17:06 Potassium Chloride (Klor-Con) 20 meq DAILYWBKFT PO 12/04/20 08:00 01/17/21 08:37 Sertraline HCl (Zoloft) 25 mg DAILY PO 12/04/20 09:00 12/06/20 21:00 DC 12/06/20 08:17 Sertraline HCl (Zoloft) 50 mg DAILY PO 12/07/20 09:00 01/17/21 08:38 Quetiapine Fumarate (SEROquel) 12.5 mg 0900 PO 12/09/20 09:00 12/10/20 16:51 DC 12/10/20 09:00 Quetiapine Fumarate (SEROquel) 12.5 mg ONCE ONCE PO 12/08/20 17:15 12/08/20 17:16 DC 12/08/20 17:15 Quetiapine Fumarate (SEROquel) 12.5 mg 1700 PO 12/09/20 18:00 01/02/21 11:54 DC 01/01/21 17:00 Quetiapine Fumarate (SEROquel) 25 mg 0900 PO 12/11/20 09:00 01/17/21 08:38 Divalproex Sodium (Depakote Sprinkles) 125 mg BID PO 12/12/20 21:00 12/13/20 10:16 DC 12/13/20 08:35 Trazodone HCl (Desyrel) 50 mg PRN QHS PRN PO INSOMNIA 12/13/20 00:30 01/17/21 20:53 Divalproex Sodium (Depakote Sprinkles) 125 mg 0900,1700 PO 12/13/20 17:00 12/13/20 17:49 DC 12/13/20 16:35 Valproic Acid (Depakene) 125 mg 0900,1700 PO 12/14/20 09:00 12/17/20 15:35 DC 12/17/20 08:39 Valproic Acid (Depakene) 125 mg [id number] PO 12/17/20 21:00 12/23/20 16:57 DC 12/23/20 14:05 Valproic Acid (Depakene) 125 mg QID PO 12/23/20 17:00 01/02/21 11:54 DC 01/02/21 08:35 Hydroxyzine HCl (Atarax) 10 mg PRN Q2HR PRN PO ITCHING 12/29/20 20:15 01/11/21 01:31 Quetiapine Fumarate (SEROquel) 25 mg 1700 PO 01/02/21 17:00 01/17/21 17:00 Valproic Acid (Depakene) 125 mg 1300,1700 PO 01/02/21 13:00 01/17/21 17:00 Quetiapine Fumarate (SEROquel) 12.5 mg 1200 PO 01/02/21 12:00 01/17/21 12:30 Valproic Acid (Depakene) 250 mg 0900,2100 PO 01/02/21 21:00 01/17/21 20:53 Oxycodone/ Acetaminophen (Percocet 7.5/ 325) 1 tab PRN Q6HRS PRN PO PAIN 01/13/21 16:45 I have reviewed the current psychotropics carefully including drug interactions. Risk benefit ratio favors no change other than as noted in my dictated progress note. 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
[2021-01-18 05:22] VITALS: BP 99/53
--- NOTE | 2021-01-18 07:06 | PDOC ---
Exam Note: Earle Note: This note is a late entry for 01/17/2021overs elements not covered in my initial note. Subjective: The patient was seen on telehealth rounds in the evening of 01/17/2021 due to COVID-19 exposure on the unit with Kiki APPIAH, discussed and reviewed the chart. The patient slept 8 hours previous night. She has been confused, pacing. Received Zyprexa at dinner time. She did attend medical education group. Review of Systems: Ambulation impaired. No CV, , pulmonary, eye system symptoms on review. Mental Status Exam: The patient is oriented to herself. Insight and judgment, recent and remote memory, attention and concentration is poor consistent with her diagnoses. Laboratory Data: Reviewed. Impression: Major neurocognitive disorder Alzheimer vascular with delusion, depression, and behavioral disturbance. Anxiety disorder unspecified. Impulse control disorder unspecified. Plan: No change from initial note. Assessment: Vital Signs/I&O: Vital Signs Date Time Temp Pulse Resp B/P (MAP) Pulse Ox O2 Delivery O2 Flow Rate FiO2 01/18/21 05:22 97.2 60 16 99/53 (68) 95 01/17/21 06:19 Room Air I & O 01/17/21 01/17/21 01/18/21 15:00 23:00 07:00 Intake Total 60 ml 680 ml Balance 60 ml 680 ml Current Medications: Meds: Current Medications Medications (Trade) Dose Ordered Sig/Brianne Route PRN Reason Start Time Stop Time Status Last Admin Dose Admin Lorazepam (Ativan) 1 mg STK-MED ONCE .ROUTE 12/02/20 14:25 12/02/20 14:25 DC Lorazepam (Ativan) 1 mg 1X ONCE PO 12/02/20 14:30 12/02/20 14:36 DC 12/02/20 14:31 Potassium/ Phosphorus/Sodium (Phos-Nak) 1 pkt 1X ONCE PO 12/02/20 15:00 12/02/20 15:01 Cancel Potassium Bicarbonate (Potassium Effervescent Tablet) 20 meq STK-MED ONCE .ROUTE 12/02/20 14:56 12/02/20 14:57 DC Potassium Bicarbonate (Potassium Effervescent Tablet) 20 meq 1X ONCE PO 12/02/20 15:00 12/02/20 15:01 DC 12/02/20 15:00 Acetaminophen (Tylenol) 650 mg PRN Q6HRS PRN PO MILD PAIN / TEMP > 100.3'F 12/02/20 15:45 01/14/21 19:50 Multi-Ingredient Ointment (Analgesic [place]) 1 itz PRN QID PRN TP MUSCLE PAIN 12/02/20 15:45 Al Hydroxide/Mg Hydroxide (Mylanta Plus Xs) 15 ml PRN AFTMEALHC PRN PO DYSPEPSIA 12/02/20 15:45 Magnesium Hydroxide (Milk Of Magnesia) 2,400 mg PRN QHS PRN PO CONSTIPATION 12/02/20 15:45 12/03/20 16:29 Lisinopril (Prinivil) 10 mg DAILY PO 12/03/20 09:00 01/17/21 08:38 Multivitamins/ Calcium (Thera-M Plus) 1 tab DAILY PO 12/03/20 09:00 01/17/21 08:38 Olanzapine (ZyPREXA ZYDIS) 2.5 mg PRN Q2HRS PRN PO PSYCHOSIS 12/02/20 17:00 01/15/21 17:06 Potassium Chloride (Klor-Con) 20 meq DAILYWBKFT PO 12/04/20 08:00 01/17/21 08:37 Sertraline HCl (Zoloft) 25 mg DAILY PO 12/04/20 09:00 12/06/20 21:00 DC 12/06/20 08:17 Sertraline HCl (Zoloft) 50 mg DAILY PO 12/07/20 09:00 01/17/21 08:38 Quetiapine Fumarate (SEROquel) 12.5 mg 0900 PO 12/09/20 09:00 12/10/20 16:51 DC 12/10/20 09:00 Quetiapine Fumarate (SEROquel) 12.5 mg ONCE ONCE PO 12/08/20 17:15 12/08/20 17:16 DC 12/08/20 17:15 Quetiapine Fumarate (SEROquel) 12.5 mg 1700 PO 12/09/20 18:00 01/02/21 11:54 DC 01/01/21 17:00 Quetiapine Fumarate (SEROquel) 25 mg 0900 PO 12/11/20 09:00 01/17/21 08:38 Divalproex Sodium (Depakote Sprinkles) 125 mg BID PO 12/12/20 21:00 12/13/20 10:16 DC 12/13/20 08:35 Trazodone HCl (Desyrel) 50 mg PRN QHS PRN PO INSOMNIA 12/13/20 00:30 01/17/21 20:53 Divalproex Sodium (Depakote Sprinkles) 125 mg 0900,1700 PO 12/13/20 17:00 12/13/20 17:49 DC 12/13/20 16:35 Valproic Acid (Depakene) 125 mg 0900,1700 PO 12/14/20 09:00 12/17/20 15:35 DC 12/17/20 08:39 Valproic Acid (Depakene) 125 mg [id number] PO 12/17/20 21:00 12/23/20 16:57 DC 12/23/20 14:05 Valproic Acid (Depakene) 125 mg QID PO 12/23/20 17:00 01/02/21 11:54 DC 01/02/21 08:35 Hydroxyzine HCl (Atarax) 10 mg PRN Q2HR PRN PO ITCHING 12/29/20 20:15 01/11/21 01:31 Quetiapine Fumarate (SEROquel) 25 mg 1700 PO 01/02/21 17:00 01/17/21 17:00 Valproic Acid (Depakene) 125 mg 1300,1700 PO 01/02/21 13:00 01/17/21 17:00 Quetiapine Fumarate (SEROquel) 12.5 mg 1200 PO 01/02/21 12:00 01/17/21 12:30 Valproic Acid (Depakene) 250 mg 0900,2100 PO 01/02/21 21:00 01/17/21 20:53 Oxycodone/ Acetaminophen (Percocet 7.5/ 325) 1 tab PRN Q6HRS PRN PO PAIN 01/13/21 16:45 I have reviewed the current psychotropics carefully including drug interactions. Risk benefit ratio favors no change other than as noted in my dictated progress note. Diagnosis: Problems: (1) Major neurocognitive disorder (2) Impulse control disorder, unspecified (3) Anxiety disorder, unspecified (4) Dementia, vascular, with depression (5) Dementia, vascular, with delusions (6) Dementia in Alzheimer's disease with depression (7) Dementia in Alzheimer's disease with delusions (8) Dementia of the Alzheimer's type with early onset with behavioral disturbance EMILY CHARLES MD Jan 18, 2021 07:06
[2021-01-18] MEDS: POTASSIUM CHLORIDE 20 MEQ TABLET.ER. PO SCH (08:21)
[2021-01-18] MEDS: LISINOPRIL 10 MG TABLET PO SCH (08:22)
[2021-01-18] MEDS: SERTRALINE 50 MG TABLET. PO SCH (08:22)
[2021-01-18] MEDS: QUEtiapine 25 MG TABLET. PO SCH ×3 (08:23→17:17)
[2021-01-18] MEDS: MULTIVITAMIN with MINERAL TABLET. PO SCH (08:23)
[2021-01-18] MEDS: VALPROATE ACID 250 MG/5 ML ORAL SOLUTION PO SCH ×4 (08:24→20:23)
[2021-01-18 16:02] VITALS: BP 121/60
[2021-01-18] MEDS: traZODone 50 MG TABLET. PO PRN (20:32)
[2021-01-18] MEDS: hydrOXYzine HCL 10 MG TABLET PO PRN (21:22)
[2021-01-19 05:37] VITALS: BP 109/78
[2021-01-19] MEDS: MULTIVITAMIN with MINERAL TABLET. PO SCH (08:32)
[2021-01-19] MEDS: SERTRALINE 50 MG TABLET. PO SCH (08:33)
[2021-01-19] MEDS: POTASSIUM CHLORIDE 20 MEQ TABLET.ER. PO SCH (08:33)
[2021-01-19] MEDS: VALPROATE ACID 250 MG/5 ML ORAL SOLUTION PO SCH ×3 (08:33→17:50)
[2021-01-19] MEDS: LISINOPRIL 10 MG TABLET PO SCH (08:33)
[2021-01-19] MEDS: QUEtiapine 25 MG TABLET. PO SCH ×3 (08:33→17:49)
[2021-01-19 15:47] VITALS: BP 93/56
--- NOTE | 2021-01-19 22:02 | PDOC ---
Exam Note: Earle Note: Please also refer to the separate dictated note~for this date of service dictated separately.~Patient seen individually. Discussed the patient with Nursing staff reviewed the chart.~Reviewed interim history and current functioning. Reviewed vital signs,~Labs/ Radiology~and current medications noted below. Continue current treatment with the changes noted in the dictated addendum note Assessment: Vital Signs/I&O: Vital Signs Date Time Temp Pulse Resp B/P (MAP) Pulse Ox O2 Delivery O2 Flow Rate FiO2 01/19/21 15:47 98.5 70 16 93/56 (68) 99 01/17/21 06:19 Room Air I & O 01/18/21 01/18/21 01/19/21 15:00 23:00 07:00 Intake Total 900 ml 480 ml Balance 900 ml 480 ml Current Medications: Meds: Current Medications Medications (Trade) Dose Ordered Sig/Brianne Route PRN Reason Start Time Stop Time Status Last Admin Dose Admin Lorazepam (Ativan) 1 mg STK-MED ONCE .ROUTE 12/02/20 14:25 12/02/20 14:25 DC Lorazepam (Ativan) 1 mg 1X ONCE PO 12/02/20 14:30 12/02/20 14:36 DC 12/02/20 14:31 Potassium/ Phosphorus/Sodium (Phos-Nak) 1 pkt 1X ONCE PO 12/02/20 15:00 12/02/20 15:01 Cancel Potassium Bicarbonate (Potassium Effervescent Tablet) 20 meq STK-MED ONCE .ROUTE 12/02/20 14:56 12/02/20 14:57 DC Potassium Bicarbonate (Potassium Effervescent Tablet) 20 meq 1X ONCE PO 12/02/20 15:00 12/02/20 15:01 DC 12/02/20 15:00 Acetaminophen (Tylenol) 650 mg PRN Q6HRS PRN PO MILD PAIN / TEMP > 100.3'F 12/02/20 15:45 01/14/21 19:50 Multi-Ingredient Ointment (Analgesic [place]) 1 itz PRN QID PRN TP MUSCLE PAIN 12/02/20 15:45 Al Hydroxide/Mg Hydroxide (Mylanta Plus Xs) 15 ml PRN AFTMEALHC PRN PO DYSPEPSIA 12/02/20 15:45 Magnesium Hydroxide (Milk Of Magnesia) 2,400 mg PRN QHS PRN PO CONSTIPATION 12/02/20 15:45 12/03/20 16:29 Lisinopril (Prinivil) 10 mg DAILY PO 12/03/20 09:00 01/19/21 08:33 Multivitamins/ Calcium (Thera-M Plus) 1 tab DAILY PO 12/03/20 09:00 01/19/21 08:32 Olanzapine (ZyPREXA ZYDIS) 2.5 mg PRN Q2HRS PRN PO PSYCHOSIS 12/02/20 17:00 01/19/21 14:51 Potassium Chloride (Klor-Con) 20 meq DAILYWBKFT PO 12/04/20 08:00 01/19/21 08:33 Sertraline HCl (Zoloft) 25 mg DAILY PO 12/04/20 09:00 12/06/20 21:00 DC 12/06/20 08:17 Sertraline HCl (Zoloft) 50 mg DAILY PO 12/07/20 09:00 01/19/21 08:33 Quetiapine Fumarate (SEROquel) 12.5 mg 0900 PO 12/09/20 09:00 12/10/20 16:51 DC 12/10/20 09:00 Quetiapine Fumarate (SEROquel) 12.5 mg ONCE ONCE PO 12/08/20 17:15 12/08/20 17:16 DC 12/08/20 17:15 Quetiapine Fumarate (SEROquel) 12.5 mg 1700 PO 12/09/20 18:00 01/02/21 11:54 DC 01/01/21 17:00 Quetiapine Fumarate (SEROquel) 25 mg 0900 PO 12/11/20 09:00 01/19/21 08:33 Divalproex Sodium (Depakote Sprinkles) 125 mg BID PO 12/12/20 21:00 12/13/20 10:16 DC 12/13/20 08:35 Trazodone HCl (Desyrel) 50 mg PRN QHS PRN PO INSOMNIA 12/13/20 00:30 01/18/21 20:32 Divalproex Sodium (Depakote Sprinkles) 125 mg 0900,1700 PO 12/13/20 17:00 12/13/20 17:49 DC 12/13/20 16:35 Valproic Acid (Depakene) 125 mg 0900,1700 PO 12/14/20 09:00 12/17/20 15:35 DC 12/17/20 08:39 Valproic Acid (Depakene) 125 mg [id number] PO 12/17/20 21:00 12/23/20 16:57 DC 12/23/20 14:05 Valproic Acid (Depakene) 125 mg QID PO 12/23/20 17:00 01/02/21 11:54 DC 01/02/21 08:35 Hydroxyzine HCl (Atarax) 10 mg PRN Q2HR PRN PO ITCHING 12/29/20 20:15 01/18/21 21:22 Quetiapine Fumarate (SEROquel) 25 mg 1700 PO 01/02/21 17:00 01/19/21 17:49 Valproic Acid (Depakene) 125 mg 1300,1700 PO 01/02/21 13:00 01/19/21 17:50 Quetiapine Fumarate (SEROquel) 12.5 mg 1200 PO 01/02/21 12:00 01/19/21 12:19 Valproic Acid (Depakene) 250 mg 0900,2100 PO 01/02/21 21:00 01/19/21 08:33 Oxycodone/ Acetaminophen (Percocet 7.5/ 325) 1 tab PRN Q6HRS PRN PO MOD-SEV PAIN 01/13/21 16:45 I have reviewed the current psychotropics carefully including drug interactions. Risk benefit ratio favors no change other than as noted in my dictated progress note. Diagnosis: Problems: (1) Major neurocognitive disorder (2) Impulse control disorder, unspecified (3) Anxiety disorder, unspecified (4) Dementia, vascular, with depression (5) Dementia, vascular, with delusions (6) Dementia in Alzheimer's disease with depression (7) Dementia in Alzheimer's disease with delusions (8) Dementia of the Alzheimer's type with early onset with behavioral dis turbance EMILY CHARLES MD Jan 19, 2021 22:02
[2021-01-20] MEDS: VALPROATE ACID 250 MG/5 ML ORAL SOLUTION PO SCH ×5 (00:48→19:51)
[2021-01-20 06:20] VITALS: BP 129/88
[2021-01-20] MEDS: POTASSIUM CHLORIDE 20 MEQ TABLET.ER. PO SCH (08:50)
[2021-01-20] MEDS: LISINOPRIL 10 MG TABLET PO SCH (08:51)
[2021-01-20] MEDS: SERTRALINE 50 MG TABLET. PO SCH (08:51)
[2021-01-20] MEDS: MULTIVITAMIN with MINERAL TABLET. PO SCH (08:51)
[2021-01-20] MEDS: QUEtiapine 25 MG TABLET. PO SCH ×3 (08:52→17:12)
[2021-01-20 10:56] VITALS: BP 132/71
[2021-01-20 15:58] VITALS: BP 131/76
[2021-01-20] MEDS: ACETAMINOPHEN 325 MG TABLET PO PRN (19:51)
--- NOTE | 2021-01-20 21:52 | PDOC ---
Exam Note: Earle Note: Please also refer to the separate dictated note~for this date of service dictated separately.~Patient seen individually. Discussed the patient with Nursing staff reviewed the chart.~Reviewed interim history and current functioning. Reviewed vital signs,~Labs/ Radiology~and current medications noted below. Continue current treatment with the changes noted in the dictated addendum note Assessment: Vital Signs/I&O: Vital Signs Date Time Temp Pulse Resp B/P (MAP) Pulse Ox O2 Delivery O2 Flow Rate FiO2 01/20/21 15:58 97.2 90 20 131/76 (94) 95 01/17/21 06:19 Room Air I & O 01/19/21 01/19/21 01/20/21 15:00 23:00 07:00 Intake Total 480 ml 180 ml Balance 480 ml 180 ml Labs: Laboratory Tests Test 01/20/21 10:40 SARS-CoV-2 (PCR) Negative (NEGATIVE) Current Medications: Meds: Laboratory Tests Test 01/20/21 10:40 Coronavirus (COVID-19)(PCR) Negative Current Medications Medications (Trade) Dose Ordered Sig/Brianne Route PRN Reason Start Time Stop Time Status Last Admin Dose Admin Lorazepam (Ativan) 1 mg STK-MED ONCE .ROUTE 12/02/20 14:25 12/02/20 14:25 DC Lorazepam (Ativan) 1 mg 1X ONCE PO 12/02/20 14:30 12/02/20 14:36 DC 12/02/20 14:31 Potassium/ Phosphorus/Sodium (Phos-Nak) 1 pkt 1X ONCE PO 12/02/20 15:00 12/02/20 15:01 Cancel Potassium Bicarbonate (Potassium Effervescent Tablet) 20 meq STK-MED ONCE .ROUTE 12/02/20 14:56 12/02/20 14:57 DC Potassium Bicarbonate (Potassium Effervescent Tablet) 20 meq 1X ONCE PO 12/02/20 15:00 12/02/20 15:01 DC 12/02/20 15:00 Acetaminophen (Tylenol) 650 mg PRN Q6HRS PRN PO MILD PAIN / TEMP > 100.3'F 12/02/20 15:45 01/20/21 19:51 Multi-Ingredient Ointment (Analgesic [place]) 1 itz PRN QID PRN TP MUSCLE PAIN 12/02/20 15:45 Al Hydroxide/Mg Hydroxide (Mylanta Plus Xs) 15 ml PRN AFTMEALHC PRN PO DYSPEPSIA 12/02/20 15:45 Magnesium Hydroxide (Milk Of Magnesia) 2,400 mg PRN QHS PRN PO CONSTIPATION 12/02/20 15:45 12/03/20 16:29 Lisinopril (Prinivil) 10 mg DAILY PO 12/03/20 09:00 01/20/21 08:51 Multivitamins/ Calcium (Thera-M Plus) 1 tab DAILY PO 12/03/20 09:00 01/20/21 08:51 Olanzapine (ZyPREXA ZYDIS) 2.5 mg PRN Q2HRS PRN PO PSYCHOSIS 12/02/20 17:00 01/20/21 17:12 Potassium Chloride (Klor-Con) 20 meq DAILYWBKFT PO 12/04/20 08:00 01/20/21 08:50 Sertraline HCl (Zoloft) 25 mg DAILY PO 12/04/20 09:00 12/06/20 21:00 DC 12/06/20 08:17 Sertraline HCl (Zoloft) 50 mg DAILY PO 12/07/20 09:00 01/20/21 08:51 Quetiapine Fumarate (SEROquel) 12.5 mg 0900 PO 12/09/20 09:00 12/10/20 16:51 DC 12/10/20 09:00 Quetiapine Fumarate (SEROquel) 12.5 mg ONCE ONCE PO 12/08/20 17:15 12/08/20 17:16 DC 12/08/20 17:15 Quetiapine Fumarate (SEROquel) 12.5 mg 1700 PO 12/09/20 18:00 01/02/21 11:54 DC 01/01/21 17:00 Quetiapine Fumarate (SEROquel) 25 mg 0900 PO 12/11/20 09:00 01/20/21 08:52 Divalproex Sodium (Depakote Sprinkles) 125 mg BID PO 12/12/20 21:00 12/13/20 10:16 DC 12/13/20 08:35 Trazodone HCl (Desyrel) 50 mg PRN QHS PRN PO INSOMNIA 12/13/20 00:30 01/18/21 20:32 Divalproex Sodium (Depakote Sprinkles) 125 mg 0900,1700 PO 12/13/20 17:00 12/13/20 17:49 DC 12/13/20 16:35 Valproic Acid (Depakene) 125 mg 0900,1700 PO 12/14/20 09:00 12/17/20 15:35 DC 12/17/20 08:39 Valproic Acid (Depakene) 125 mg [id number] PO 12/17/20 21:00 12/23/20 16:57 DC 12/23/20 14:05 Valproic Acid (Depakene) 125 mg QID PO 12/23/20 17:00 01/02/21 11:54 DC 01/02/21 08:35 Hydroxyzine HCl (Atarax) 10 mg PRN Q2HR PRN PO ITCHING 12/29/20 20:15 01/18/21 21:22 Quetiapine Fumarate (SEROquel) 25 mg 1700 PO 01/02/21 17:00 01/20/21 17:12 Valproic Acid (Depakene) 125 mg 1300,1700 PO 01/02/21 13:00 01/20/21 17:12 Quetiapine Fumarate (SEROquel) 12.5 mg 1200 PO 01/02/21 12:00 01/20/21 12:56 Valproic Acid (Depakene) 250 mg 0900,2100 PO 01/02/21 21:00 01/20/21 19:51 Oxycodone/ Acetaminophen (Percocet 7.5/ 325) 1 tab PRN Q6HRS PRN PO MOD-SEV PAIN 01/13/21 16:45 I have reviewed the current psychotropics carefully including drug interactions. Risk benefit ratio favors no change other than as noted in my dictated progress note. Diagnosis: Problems: (1) Major neurocognitive disorder (2) Impulse control disorder, unspecified (3) Anxiety disorder, unspecified (4) Dementia, vascular, with depression (5) Dementia, vascular, with delusions (6) Dementia in Alzheimer's disease with depression (7) Dementia in Alzheimer's disease with delusions (8) Dementia of the Alzheimer's type with early onset with behavioral disturbance EMILY CHARLES MD Jan 20, 2021 21:52
[2021-01-21 05:49] VITALS: BP 117/71
--- NOTE | 2021-01-21 07:31 | PDOC ---
Exam Note: Earle Note: This note is a late entry for 01/19/2021overs elements not covered in my initial note. Subjective: The patient was seen on telehealth rounds in the evening of 01/19/2021 due to COVID-19 exposure on the unit with Catie APPIAH, discussed and reviewed the chart. The patient slept 6-1/4 hours previous night. She has been teary-eyed at times. She has been walking up and down the hallway, somewhat more agitated but redirects. Received Zyprexa x1. Review of Systems: Ambulation impaired. No CV, , pulmonary, eye system symptoms on review. Mental Status Exam: The patient is oriented to herself. Insight and judgment, recent and remote memory, attention and concentration is poor consistent with her diagnoses. Laboratory Data: Reviewed. Impression: Major neurocognitive disorder Alzheimer vascular with delusion, depression, and behavioral disturbance. Anxiety disorder unspecified. Impulse control disorder unspecified. Plan: No change from initial note. Assessment: Vital Signs/I&O: Vital Signs Date Time Temp Pulse Resp B/P (MAP) Pulse Ox O2 Delivery O2 Flow Rate FiO2 01/21/21 05:49 97.3 60 16 117/71 (86) 94 Room Air I & O 01/20/21 01/20/21 01/21/21 14:59 22:59 06:59 Intake Total 480 ml 600 ml Balance 480 ml 600 ml Labs: Laboratory Tests Test 01/20/21 10:40 SARS-CoV-2 (PCR) Negative (NEGATIVE) Current Medications: Meds: Laboratory Tests Test 01/20/21 10:40 Coronavirus (COVID-19)(PCR) Negative Current Medications Medications (Trade) Dose Ordered Sig/Brianne Route PRN Reason Start Time Stop Time Status Last Admin Dose Admin Lorazepam (Ativan) 1 mg STK-MED ONCE .ROUTE 12/02/20 14:25 12/02/20 14:25 DC Lorazepam (Ativan) 1 mg 1X ONCE PO 12/02/20 14:30 12/02/20 14:36 DC 12/02/20 14:31 Potassium/ Phosphorus/Sodium (Phos-Nak) 1 pkt 1X ONCE PO 12/02/20 15:00 12/02/20 15:01 Cancel Potassium Bicarbonate (Potassium Effervescent Tablet) 20 meq STK-MED ONCE .ROUTE 12/02/20 14:56 12/02/20 14:57 DC Potassium Bicarbonate (Potassium Effervescent Tablet) 20 meq 1X ONCE PO 12/02/20 15:00 12/02/20 15:01 DC 12/02/20 15:00 Acetaminophen (Tylenol) 650 mg PRN Q6HRS PRN PO MILD PAIN / TEMP > 100.3'F 12/02/20 15:45 01/20/21 19:51 Multi-Ingredient Ointment (Analgesic [place]) 1 itz PRN QID PRN TP MUSCLE PAIN 12/02/20 15:45 Al Hydroxide/Mg Hydroxide (Mylanta Plus Xs) 15 ml PRN AFTMEALHC PRN PO DYSPEPSIA 12/02/20 15:45 Magnesium Hydroxide (Milk Of Magnesia) 2,400 mg PRN QHS PRN PO CONSTIPATION 12/02/20 15:45 12/03/20 16:29 Lisinopril (Prinivil) 10 mg DAILY PO 12/03/20 09:00 01/20/21 08:51 Multivitamins/ Calcium (Thera-M Plus) 1 tab DAILY PO 12/03/20 09:00 01/20/21 08:51 Olanzapine (ZyPREXA ZYDIS) 2.5 mg PRN Q2HRS PRN PO PSYCHOSIS 12/02/20 17:00 01/20/21 17:12 Potassium Chloride (Klor-Con) 20 meq DAILYWBKFT PO 12/04/20 08:00 01/20/21 08:50 Sertraline HCl (Zoloft) 25 mg DAILY PO 12/04/20 09:00 12/06/20 21:00 DC 12/06/20 08:17 Sertraline HCl (Zoloft) 50 mg DAILY PO 12/07/20 09:00 01/20/21 08:51 Quetiapine Fumarate (SEROquel) 12.5 mg 0900 PO 12/09/20 09:00 12/10/20 16:51 DC 12/10/20 09:00 Quetiapine Fumarate (SEROquel) 12.5 mg ONCE ONCE PO 12/08/20 17:15 12/08/20 17:16 DC 12/08/20 17:15 Quetiapine Fumarate (SEROquel) 12.5 mg 1700 PO 12/09/20 18:00 01/02/21 11:54 DC 01/01/21 17:00 Quetiapine Fumarate (SEROquel) 25 mg 0900 PO 12/11/20 09:00 01/20/21 08:52 Divalproex Sodium (Depakote Sprinkles) 125 mg BID PO 12/12/20 21:00 12/13/20 10:16 DC 12/13/20 08:35 Trazodone HCl (Desyrel) 50 mg PRN QHS PRN PO INSOMNIA 12/13/20 00:30 01/18/21 20:32 Divalproex Sodium (Depakote Sprinkles) 125 mg 0900,1700 PO 12/13/20 17:00 12/13/20 17:49 DC 12/13/20 16:35 Valproic Acid (Depakene) 125 mg 0900,1700 PO 12/14/20 09:00 12/17/20 15:35 DC 12/17/20 08:39 Valproic Acid (Depakene) 125 mg [id number] PO 12/17/20 21:00 12/23/20 16:57 DC 12/23/20 14:05 Valproic Acid (Depakene) 125 mg QID PO 12/23/20 17:00 01/02/21 11:54 DC 01/02/21 08:35 Hydroxyzine HCl (Atarax) 10 mg PRN Q2HR PRN PO ITCHING 12/29/20 20:15 01/18/21 21:22 Quetiapine Fumarate (SEROquel) 25 mg 1700 PO 01/02/21 17:00 01/20/21 17:12 Valproic Acid (Depakene) 125 mg 1300,1700 PO 01/02/21 13:00 01/20/21 17:12 Quetiapine Fumarate (SEROquel) 12.5 mg 1200 PO 01/02/21 12:00 01/20/21 12:56 Valproic Acid (Depakene) 250 mg 0900,2100 PO 01/02/21 21:00 01/20/21 19:51 Oxycodone/ Acetaminophen (Percocet 7.5/ 325) 1 tab PRN Q6HRS PRN PO MOD-SEV PAIN 7/26/21 16:45 I have reviewed the current psychotropics carefully including drug interactions. Risk benefit ratio favors no change other than as noted in my dictated progress note. Diagnosis: Problems: (1) Major neurocognitive disorder (2) Impulse control disorder, unspecified (3) Anxiety disorder, unspecified (4) Dementia, vascular, with depression (5) Dementia, vascular, with delusions (6) Dementia in Alzheimer's disease with depression (7) Dementia in Alzheimer's disease with delusions (8) Dementia of the Alzheimer's type with early onset with behavioral disturbance EMILY CHARLES MD Jan 21, 2021 07:31
--- NOTE | 2021-01-21 07:45 | PDOC ---
Exam Note: Earle Note: This note is a late entry for 01/20/2021overs elements not covered in my initial note. Subjective: The patient was seen on telehealth rounds in the evening of 01/20/2021 due to COVID-19 exposure on the unit with Rica APPIAH, discussed and reviewed the chart. The patient slept 8-1/2 hours previous night. She had some upper respiratory tract symptoms and COVID screen has been repeated. She has been more irritable, labile. Received Zyprexa x3 at 7.30 a.m. and 11.50 a.m. and 5.15 p.m. Review of Systems: Ambulation impaired. No CV, , pulmonary, eye system sy mptoms on review. Mental Status Exam: The patient is oriented to herself. Insight and judgment, recent and remote memory, attention and concentration is poor consistent with her diagnoses. Laboratory Data: Reviewed. Impression: Major neurocognitive disorder Alzheimer vascular with delusion, depression, and behavioral disturbance. Anxiety disorder unspecified. Impulse control disorder unspecified. Plan: No change from initial note. Assessment: Vital Signs/I&O: Vital Signs Date Time Temp Pulse Resp B/P (MAP) Pulse Ox O2 Delivery O2 Flow Rate FiO2 01/21/21 05:49 97.3 60 16 117/71 (86) 94 Room Air I & O 01/20/21 01/20/21 01/21/21 14:59 22:59 06:59 Intake Total 480 ml 600 ml Balance 480 ml 600 ml Labs: Laboratory Tests Test 01/20/21 10:40 SARS-CoV-2 (PCR) Negative (NEGATIVE) Current Medications: Meds: Laboratory Tests Test 01/20/21 10:40 Coronavirus (COVID-19)(PCR) Negative Current Medications Medications (Trade) Dose Ordered Sig/Brianne Route PRN Reason Start Time Stop Time Status Last Admin Dose Admin Lorazepam (Ativan) 1 mg STK-MED ONCE .ROUTE 12/02/20 14:25 12/02/20 14:25 DC Lorazepam (Ativan) 1 mg 1X ONCE PO 12/02/20 14:30 12/02/20 14:36 DC 12/02/20 14:31 Potassium/ Phosphorus/Sodium (Phos-Nak) 1 pkt 1X ONCE PO 12/02/20 15:00 12/02/20 15:01 Cancel Potassium Bicarbonate (Potassium Effervescent Tablet) 20 meq STK-MED ONCE .ROUTE 12/02/20 14:56 12/02/20 14:57 DC Potassium Bicarbonate (Potassium Effervescent Tablet) 20 meq 1X ONCE PO 12/02/20 15:00 12/02/20 15:01 DC 12/02/20 15:00 Acetaminophen (Tylenol) 650 mg PRN Q6HRS PRN PO MILD PAIN / TEMP > 100.3'F 12/02/20 15:45 01/20/21 19:51 Multi-Ingredient Ointment (Analgesic [place]) 1 itz PRN QID PRN TP MUSCLE PAIN 12/02/20 15:45 Al Hydroxide/Mg Hydroxide (Mylanta Plus Xs) 15 ml PRN AFTMEALHC PRN PO DYSPEPSIA 12/02/20 15:45 Magnesium Hydroxide (Milk Of Magnesia) 2,400 mg PRN QHS PRN PO CONSTIPATION 12/02/20 15:45 12/03/20 16:29 Lisinopril (Prinivil) 10 mg DAILY PO 12/03/20 09:00 01/20/21 08:51 Multivitamins/ Calcium (Thera-M Plus) 1 tab DAILY PO 12/03/20 09:00 01/20/21 08:51 Olanzapine (ZyPREXA ZYDIS) 2.5 mg PRN Q2HRS PRN PO PSYCHOSIS 12/02/20 17:00 01/20/21 17:12 Potassium Chloride (Klor-Con) 20 meq DAILYWBKFT PO 12/04/20 08:00 01/20/21 08:50 Sertraline HCl (Zoloft) 25 mg DAILY PO 12/04/20 09:00 12/06/20 21:00 DC 12/06/20 08:17 Sertraline HCl (Zoloft) 50 mg DAILY PO 12/07/20 09:00 01/20/21 08:51 Quetiapine Fumarate (SEROquel) 12.5 mg 0900 PO 12/09/20 09:00 12/10/20 16:51 DC 12/10/20 09:00 Quetiapine Fumarate (SEROquel) 12.5 mg ONCE ONCE PO 12/08/20 17:15 12/08/20 17:16 DC 12/08/20 17:15 Quetiapine Fumarate (SEROquel) 12.5 mg 1700 PO 12/09/20 18:00 01/02/21 11:54 DC 01/01/21 17:00 Quetiapine Fumarate (SEROquel) 25 mg 0900 PO 12/11/20 09:00 01/20/21 08:52 Divalproex Sodium (Depakote Sprinkles) 125 mg BID PO 12/12/20 21:00 12/13/20 10:16 DC 12/13/20 08:35 Trazodone HCl (Desyrel) 50 mg PRN QHS PRN PO INSOMNIA 12/13/20 00:30 01/18/21 20:32 Divalproex Sodium (Depakote Sprinkles) 125 mg 0900,1700 PO 12/13/20 17:00 12/13/20 17:49 DC 12/13/20 16:35 Valproic Acid (Depakene) 125 mg 0900,1700 PO 12/14/20 09:00 12/17/20 15:35 DC 12/17/20 08:39 Valproic Acid (Depakene) 125 mg [id number] PO 12/17/20 21:00 12/23/20 16:57 DC 12/23/20 14:05 Valproic Acid (Depakene) 125 mg QID PO 12/23/20 17:00 01/02/21 11:54 DC 01/02/21 08:35 Hydroxyzine HCl (Atarax) 10 mg PRN Q2HR PRN PO ITCHING 12/29/20 20:15 01/18/21 21:22 Quetiapine Fumarate (SEROquel) 25 mg 1700 PO 01/02/21 17:00 01/20/21 17:12 Valproic Acid (Depakene) 125 mg 1300,1700 PO 01/02/21 13:00 01/20/21 17:12 Quetiapine Fumarate (SEROquel) 12.5 mg 1200 PO 01/02/21 12:00 01/20/21 12:56 Valproic Acid (Depakene) 250 mg 0900,2100 PO 01/02/21 21:00 01/20/21 19:51 Oxycodone/ Acetaminophen (Percocet 7.5/ 325) 1 tab PRN Q6HRS PRN PO MOD-SEV PAIN 01/13/21 16:45 I have reviewed the current psychotropics carefully including drug interactions. Risk benefit ratio favors no change other than as noted in my dictated progress note. Diagnosis: Problems: (1) Major neurocognitive disorder (2) Impulse control disorder, unspecified (3) Anxiety disorder, unspecified (4) Dementia, vascular, with depression (5) Dementia, vascular, with delusions (6) Dementia in Alzheimer's disease with depression (7) Dementia in Alzheimer's disease with delusions (8) Dementia of the Alzheimer's type with early onset with behavioral disturbance EMILY CHARLES MD Jan 21, 2021 07:45
[2021-01-21] MEDS: POTASSIUM CHLORIDE 20 MEQ TABLET.ER. PO SCH (08:20)
[2021-01-21] MEDS: SERTRALINE 50 MG TABLET. PO SCH (08:20)
[2021-01-21] MEDS: LISINOPRIL 10 MG TABLET PO SCH (08:20)
[2021-01-21] MEDS: QUEtiapine 25 MG TABLET. PO SCH ×3 (08:20→17:50)
[2021-01-21] MEDS: MULTIVITAMIN with MINERAL TABLET. PO SCH (08:20)
[2021-01-21] MEDS: VALPROATE ACID 250 MG/5 ML ORAL SOLUTION PO SCH ×4 (08:20→19:54)
[2021-01-21 16:07] VITALS: BP 107/68
--- NOTE | 2021-01-21 21:55 | PDOC ---
Exam Note: Earle Note: Please also refer to the separate dictated note~for this date of service dictated separately.~Patient seen individually. Discussed the patient with Nursing staff reviewed the chart.~Reviewed interim history and current functioning. Reviewed vital signs,~Labs/ Radiology~and current medications noted below. Continue current treatment with the changes noted in the dictated addendum note Assessment: Vital Signs/I&O: Vital Signs Date Time Temp Pulse Resp B/P (MAP) Pulse Ox O2 Delivery O2 Flow Rate FiO2 01/21/21 16:07 97.6 92 15 107/68 (81) 94 01/21/21 05:49 Room Air I & O 01/20/21 01/20/21 01/21/21 15:00 23:00 07:00 Intake Total 480 ml 600 ml Balance 480 ml 600 ml Current Medications: Meds: Current Medications Medications (Trade) Dose Ordered Sig/Brianne Route PRN Reason Start Time Stop Time Status Last Admin Dose Admin Lorazepam (Ativan) 1 mg STK-MED ONCE .ROUTE 12/02/20 14:25 12/02/20 14:25 DC Lorazepam (Ativan) 1 mg 1X ONCE PO 12/02/20 14:30 12/02/20 14:36 DC 12/02/20 14:31 Potassium/ Phosphorus/Sodium (Phos-Nak) 1 pkt 1X ONCE PO 12/02/20 15:00 12/02/20 15:01 Cancel Potassium Bicarbonate (Potassium Effervescent Tablet) 20 meq STK-MED ONCE .ROUTE 12/02/20 14:56 12/02/20 14:57 DC Potassium Bicarbonate (Potassium Effervescent Tablet) 20 meq 1X ONCE PO 12/02/20 15:00 12/02/20 15:01 DC 12/02/20 15:00 Acetaminophen (Tylenol) 650 mg PRN Q6HRS PRN PO MILD PAIN / TEMP > 100.3'F 12/02/20 15:45 01/20/21 19:51 Multi-Ingredient Ointment (Analgesic [place]) 1 itz PRN QID PRN TP MUSCLE PAIN 12/02/20 15:45 Al Hydroxide/Mg Hydroxide (Mylanta Plus Xs) 15 ml PRN AFTMEALHC PRN PO DYSPEPSIA 12/02/20 15:45 Magnesium Hydroxide (Milk Of Magnesia) 2,400 mg PRN QHS PRN PO CONSTIPATION 12/02/20 15:45 12/03/20 16:29 Lisinopril (Prinivil) 10 mg DAILY PO 12/03/20 09:00 01/21/21 08:20 Multivitamins/ Calcium (Thera-M Plus) 1 tab DAILY PO 12/03/20 09:00 01/21/21 08:20 Olanzapine (ZyPREXA ZYDIS) 2.5 mg PRN Q2HRS PRN PO PSYCHOSIS 12/02/20 17:00 01/21/21 15:45 Potassium Chloride (Klor-Con) 20 meq DAILYWBKFT PO 12/04/20 08:00 01/21/21 08:20 Sertraline HCl (Zoloft) 25 mg DAILY PO 12/04/20 09:00 12/06/20 21:00 DC 12/06/20 08:17 Sertraline HCl (Zoloft) 50 mg DAILY PO 12/07/20 09:00 01/21/21 08:20 Quetiapine Fumarate (SEROquel) 12.5 mg 0900 PO 12/09/20 09:00 12/10/20 16:51 DC 12/10/20 09:00 Quetiapine Fumarate (SEROquel) 12.5 mg ONCE ONCE PO 12/08/20 17:15 12/08/20 17:16 DC 12/08/20 17:15 Quetiapine Fumarate (SEROquel) 12.5 mg 1700 PO 12/09/20 18:00 01/02/21 11:54 DC 01/01/21 17:00 Quetiapine Fumarate (SEROquel) 25 mg 0900 PO 12/11/20 09:00 01/21/21 08:20 Divalproex Sodium (Depakote Sprinkles) 125 mg BID PO 12/12/20 21:00 12/13/20 10:16 DC 12/13/20 08:35 Trazodone HCl (Desyrel) 50 mg PRN QHS PRN PO INSOMNIA 12/13/20 00:30 01/18/21 20:32 Divalproex Sodium (Depakote Sprinkles) 125 mg 0900,1700 PO 12/13/20 17:00 12/13/20 17:49 DC 12/13/20 16:35 Valproic Acid (Depakene) 125 mg 0900,1700 PO 12/14/20 09:00 12/17/20 15:35 DC 12/17/20 08:39 Valproic Acid (Depakene) 125 mg [id number] PO 12/17/20 21:00 12/23/20 16:57 DC 12/23/20 14:05 Valproic Acid (Depakene) 125 mg QID PO 12/23/20 17:00 01/02/21 11:54 DC 01/02/21 08:35 Hydroxyzine HCl (Atarax) 10 mg PRN Q2HR PRN PO ITCHING 12/29/20 20:15 01/18/21 21:22 Quetiapine Fumarate (SEROquel) 25 mg 1700 PO 01/02/21 17:00 01/21/21 17:50 Valproic Acid (Depakene) 125 mg 1300,1700 PO 01/02/21 13:00 01/21/21 17:51 Quetiapine Fumarate (SEROquel) 12.5 mg 1200 PO 01/02/21 12:00 01/21/21 12:28 Valproic Acid (Depakene) 250 mg 0900,2100 PO 01/02/21 21:00 01/21/21 19:54 Oxycodone/ Acetaminophen (Percocet 7.5/ 325) 1 tab PRN Q6HRS PRN PO MOD-SEV PAIN 01/13/21 16:45 01/21/21 18:29 DC Lidocaine (Lidoderm) 2 patch DAILY TD 01/22/21 09:00 Miscellaneous (Lidoderm Patch Removal) 1 ea QHS MC 01/22/21 21:00 I have reviewed the current psychotropics carefully including drug interactions. Risk benefit ratio favors no change other than as noted in my dictated progress note. Diagnosis: Problems: (1) Major neurocognitive disorder (2) Impulse control disorder, unspecified (3) Anxiety disorder, unspecified (4) Dementia, vascular, with depression (5) Dementia, vascular, with delusions (6) Dementia in Alzheimer's disease with depression (7) Dementia in Alzheimer's disease with delusions (8) Dementia of the Alzheimer's type with early onset with behavioral disturbance EMILY CHARLES MD Jan 21, 2021 21:55
[2021-01-22 05:38] VITALS: BP 126/72
--- NOTE | 2021-01-22 06:47 | PDOC ---
Exam Note: Earle Note: This note is a late entry for 01/21/2021overs elements not covered in my initial note. Subjective: The patient was seen face to face in the evening of 01/21/2021 with Rica APPIAH, discussed and reviewed the chart. The patient slept 8-1/2 hours previous night. She remains confused, has poor vision, walks up and down the hallway, tearful at times. Review of Systems: Ambulation impaired. No CV, , pulmonary, eye system symptoms on review. Mental Status Exam: The patient is oriented to herself. Insight and judgment, recent and remote memory, attention and concentration is poor consistent with her diagnoses. Laboratory Data: Reviewed. Impression: Major neurocognitive disorder Alzheimer vascular with delusion, depression, and behavioral disturbance. Anxiety disorder unspecified. Impulse control disorder unspecified. Plan: No change from initial note. Assessment: Vital Signs/I&O: Vital Signs Date Time Temp Pulse Resp B/P (MAP) Pulse Ox O2 Delivery O2 Flow Rate FiO2 01/22/21 05:38 97.9 62 16 126/72 (90) 94 Room Air I & O 01/21/21 01/21/21 01/22/21 15:00 23:00 07:00 Intake Total 480 ml 480 ml Balance 480 ml 480 ml Current Medications: Meds: Current Medications Medications (Trade) Dose Ordered Sig/Brianne Route PRN Reason Start Time Stop Time Status Last Admin Dose Admin Lorazepam (Ativan) 1 mg STK-MED ONCE .ROUTE 12/02/20 14:25 12/02/20 14:25 DC Lorazepam (Ativan) 1 mg 1X ONCE PO 12/02/20 14:30 12/02/20 14:36 DC 12/02/20 14:31 Potassium/ Phosphorus/Sodium (Phos-Nak) 1 pkt 1X ONCE PO 12/02/20 15:00 12/02/20 15:01 Cancel Potassium Bicarbonate (Potassium Effervescent Tablet) 20 meq STK-MED ONCE .ROUTE 12/02/20 14:56 12/02/20 14:57 DC Potassium Bicarbonate (Potassium Effervescent Tablet) 20 meq 1X ONCE PO 12/02/20 15:00 12/02/20 15:01 DC 12/02/20 15:00 Acetaminophen (Tylenol) 650 mg PRN Q6HRS PRN PO MILD PAIN / TEMP > 100.3'F 12/02/20 15:45 01/20/21 19:51 Multi-Ingredient Ointment (Analgesic [place]) 1 itz PRN QID PRN TP MUSCLE PAIN 12/02/20 15:45 Al Hydroxide/Mg Hydroxide (Mylanta Plus Xs) 15 ml PRN AFTMEALHC PRN PO DYSPEPSIA 12/02/20 15:45 Magnesium Hydroxide (Milk Of Magnesia) 2,400 mg PRN QHS PRN PO CONSTIPATION 12/02/20 15:45 12/03/20 16:29 Lisinopril (Prinivil) 10 mg DAILY PO 12/03/20 09:00 01/21/21 08:20 Multivitamins/ Calcium (Thera-M Plus) 1 tab DAILY PO 12/03/20 09:00 01/21/21 08:20 Olanzapine (ZyPREXA ZYDIS) 2.5 mg PRN Q2HRS PRN PO PSYCHOSIS 12/02/20 17:00 01/21/21 15:45 Potassium Chloride (Klor-Con) 20 meq DAILYWBKFT PO 12/04/20 08:00 01/21/21 08:20 Sertraline HCl (Zoloft) 25 mg DAILY PO 12/04/20 09:00 12/06/20 21:00 DC 12/06/20 08:17 Sertraline HCl (Zoloft) 50 mg DAILY PO 12/07/20 09:00 01/21/21 08:20 Quetiapine Fumarate (SEROquel) 12.5 mg 0900 PO 12/09/20 09:00 12/10/20 16:51 DC 12/10/20 09:00 Quetiapine Fumarate (SEROquel) 12.5 mg ONCE ONCE PO 12/08/20 17:15 12/08/20 17:16 DC 12/08/20 17:15 Quetiapine Fumarate (SEROquel) 12.5 mg 1700 PO 12/09/20 18:00 01/02/21 11:54 DC 01/01/21 17:00 Quetiapine Fumarate (SEROquel) 25 mg 0900 PO 12/11/20 09:00 01/21/21 08:20 Divalproex Sodium (Depakote Sprinkles) 125 mg BID PO 12/12/20 21:00 12/13/20 10:16 DC 12/13/20 08:35 Trazodone HCl (Desyrel) 50 mg PRN QHS PRN PO INSOMNIA 12/13/20 00:30 01/18/21 20:32 Divalproex Sodium (Depakote Sprinkles) 125 mg 0900,1700 PO 12/13/20 17:00 12/13/20 17:49 DC 12/13/20 16:35 Valproic Acid (Depakene) 125 mg 0900,1700 PO 12/14/20 09:00 12/17/20 15:35 DC 12/17/20 08:39 Valproic Acid (Depakene) 125 mg [id number] PO 12/17/20 21:00 12/23/20 16:57 DC 12/23/20 14:05 Valproic Acid (Depakene) 125 mg QID PO 12/23/20 17:00 01/02/21 11:54 DC 01/02/21 08:35 Hydroxyzine HCl (Atarax) 10 mg PRN Q2HR PRN PO ITCHING 12/29/20 20:15 01/18/21 21:22 Quetiapine Fumarate (SEROquel) 25 mg 1700 PO 01/02/21 17:00 01/21/21 17:50 Valproic Acid (Depakene) 125 mg 1300,1700 PO 01/02/21 13:00 01/21/21 17:51 Quetiapine Fumarate (SEROquel) 12.5 mg 1200 PO 01/02/21 12:00 01/21/21 12:28 Valproic Acid (Depakene) 250 mg 0900,2100 PO 01/02/21 21:00 01/21/21 19:54 Oxycodone/ Acetaminophen (Percocet 7.5/ 325) 1 tab PRN Q6HRS PRN PO MOD-SEV PAIN 01/13/21 16:45 01/21/21 18:29 DC Lidocaine (Lidoderm) 2 patch DAILY TD 01/22/21 09:00 Miscellaneous (Lidoderm Patch Removal) 1 ea QHS MC 01/22/21 21:00 I have reviewed the current psychotropics carefully including drug interactions. Risk benefit ratio favors no change other than as noted in my dictated progress note. Diagnosis: Problems: (1) Major neurocognitive disorder (2) Impulse control disorder, unspecified (3) Anxiety disorder, unspecified (4) Dementia, vascular, with depression (5) Dementia, vascular, with delusions (6) Dementia in Alzheimer's disease with depression (7) Dementia in Alzheimer's disease with delusions (8) Dementia of the Alzheimer's type with early onset with behavioral disturbance EMILY CHARLES MD Jan 22, 2021 06:46
[2021-01-22] MEDS: QUEtiapine 25 MG TABLET. PO SCH ×3 (08:24→17:10)
[2021-01-22] MEDS: LISINOPRIL 10 MG TABLET PO SCH (08:24)
[2021-01-22] MEDS: POTASSIUM CHLORIDE 20 MEQ TABLET.ER. PO SCH (08:24)
[2021-01-22] MEDS: SERTRALINE 50 MG TABLET. PO SCH (08:24)
[2021-01-22] MEDS: MULTIVITAMIN with MINERAL TABLET. PO SCH (08:24)
[2021-01-22] MEDS: VALPROATE ACID 250 MG/5 ML ORAL SOLUTION PO SCH ×4 (08:25→21:00)
[2021-01-22] MEDS: LIDOCAINE (700MG/PATCH) PATCH. TD SCH (08:37)
[2021-01-22 16:03] VITALS: BP 109/52
[2021-01-22] MEDS: PATCH REMOVAL. MC SCH (21:00)
--- NOTE | 2021-01-22 21:55 | PDOC ---
Exam Note: Earle Note: Please also refer to the separate dictated note~for this date of service dictated separately.~Patient seen individually. Discussed the patient with Nursing staff reviewed the chart.~Reviewed interim history and current functioning. Reviewed vital signs,~Labs/ Radiology~and current medications noted below. Continue current treatment with the changes noted in the dictated addendum note Assessment: Vital Signs/I&O: Vital Signs Date Time Temp Pulse Resp B/P (MAP) Pulse Ox O2 Delivery O2 Flow Rate FiO2 01/22/21 16:03 97.1 91 20 109/52 (71) 97 01/22/21 05:38 Room Air I & O 01/21/21 01/21/21 01/22/21 15:00 23:00 07:00 Intake Total 480 ml 480 ml Balance 480 ml 480 ml Current Medications: Meds: Current Medications Medications (Trade) Dose Ordered Sig/Brianne Route PRN Reason Start Time Stop Time Status Last Admin Dose Admin Lorazepam (Ativan) 1 mg STK-MED ONCE .ROUTE 12/02/20 14:25 12/02/20 14:25 DC Lorazepam (Ativan) 1 mg 1X ONCE PO 12/02/20 14:30 12/02/20 14:36 DC 12/02/20 14:31 Potassium/ Phosphorus/Sodium (Phos-Nak) 1 pkt 1X ONCE PO 12/02/20 15:00 12/02/20 15:01 Cancel Potassium Bicarbonate (Potassium Effervescent Tablet) 20 meq STK-MED ONCE .ROUTE 12/02/20 14:56 12/02/20 14:57 DC Potassium Bicarbonate (Potassium Effervescent Tablet) 20 meq 1X ONCE PO 12/02/20 15:00 12/02/20 15:01 DC 12/02/20 15:00 Acetaminophen (Tylenol) 650 mg PRN Q6HRS PRN PO MILD PAIN / TEMP > 100.3'F 12/02/20 15:45 01/20/21 19:51 Multi-Ingredient Ointment (Analgesic [place]) 1 itz PRN QID PRN TP MUSCLE PAIN 12/02/20 15:45 Al Hydroxide/Mg Hydroxide (Mylanta Plus Xs) 15 ml PRN AFTMEALHC PRN PO DYSPEPSIA 12/02/20 15:45 Magnesium Hydroxide (Milk Of Magnesia) 2,400 mg PRN QHS PRN PO CONSTIPATION 12/02/20 15:45 12/03/20 16:29 Lisinopril (Prinivil) 10 mg DAILY PO 12/03/20 09:00 01/22/21 08:24 Multivitamins/ Calcium (Thera-M Plus) 1 tab DAILY PO 12/03/20 09:00 01/22/21 08:24 Olanzapine (ZyPREXA ZYDIS) 2.5 mg PRN Q2HRS PRN PO PSYCHOSIS 12/02/20 17:00 01/21/21 15:45 Potassium Chloride (Klor-Con) 20 meq DAILYWBKFT PO 12/04/20 08:00 01/22/21 08:24 Sertraline HCl (Zoloft) 25 mg DAILY PO 12/04/20 09:00 12/06/20 21:00 DC 12/06/20 08:17 Sertraline HCl (Zoloft) 50 mg DAILY PO 12/07/20 09:00 01/22/21 08:24 Quetiapine Fumarate (SEROquel) 12.5 mg 0900 PO 12/09/20 09:00 12/10/20 16:51 DC 12/10/20 09:00 Quetiapine Fumarate (SEROquel) 12.5 mg ONCE ONCE PO 12/08/20 17:15 12/08/20 17:16 DC 12/08/20 17:15 Quetiapine Fumarate (SEROquel) 12.5 mg 1700 PO 12/09/20 18:00 01/02/21 11:54 DC 01/01/21 17:00 Quetiapine Fumarate (SEROquel) 25 mg 0900 PO 12/11/20 09:00 01/22/21 08:24 Divalproex Sodium (Depakote Sprinkles) 125 mg BID PO 12/12/20 21:00 12/13/20 10:16 DC 12/13/20 08:35 Trazodone HCl (Desyrel) 50 mg PRN QHS PRN PO INSOMNIA 12/13/20 00:30 01/18/21 20:32 Divalproex Sodium (Depakote Sprinkles) 125 mg 0900,1700 PO 12/13/20 17:00 12/13/20 17:49 DC 12/13/20 16:35 Valproic Acid (Depakene) 125 mg 0900,1700 PO 12/14/20 09:00 12/17/20 15:35 DC 12/17/20 08:39 Valproic Acid (Depakene) 125 mg [id number] PO 12/17/20 21:00 12/23/20 16:57 DC 12/23/20 14:05 Valproic Acid (Depakene) 125 mg QID PO 12/23/20 17:00 01/02/21 11:54 DC 01/02/21 08:35 Hydroxyzine HCl (Atarax) 10 mg PRN Q2HR PRN PO ITCHING 12/29/20 20:15 01/18/21 21:22 Quetiapine Fumarate (SEROquel) 25 mg 1700 PO 01/02/21 17:00 01/22/21 17:10 Valproic Acid (Depakene) 125 mg 1300,1700 PO 01/02/21 13:00 01/22/21 17:12 Quetiapine Fumarate (SEROquel) 12.5 mg 1200 PO 01/02/21 12:00 01/22/21 12:17 Valproic Acid (Depakene) 250 mg 0900,2100 PO 01/02/21 21:00 01/22/21 08:25 Oxycodone/ Acetaminophen (Percocet 7.5/ 325) 1 tab PRN Q6HRS PRN PO MOD-SEV PAIN 01/13/21 16:45 01/21/21 18:29 DC Lidocaine (Lidoderm) 2 patch DAILY TD 01/22/21 09:00 01/22/21 08:37 Miscellaneous (Lidoderm Patch Removal) 1 [facility] 01/22/21 21:00 01/22/21 21:00 Current Medications Medications (Trade) Dose Ordered Sig/Brianne Route PRN Reason Start Time Stop Time Status Last Admin Dose Admin Lidocaine (Lidoderm) 2 patch DAILY TD 01/22/21 09:00 01/22/21 08:37 Miscellaneous (Lidoderm Patch Removal) 1 [facility] 01/22/21 21:00 01/22/21 21:00 I have reviewed the current psychotropics carefully including drug interactions. Risk benefit ratio favors no change other than as noted in my dictated progress note. Diagnosis: Problems: (1) Major neurocognitive disorder (2) Impulse control disorder, unspecified (3) Anxiety disorder, unspecified (4) Dementia, vascular, with depression (5) Dementia, vascular, with delusions (6) Dementia in Alzheimer's disease with depression (7) Dementia in Alzheimer's disease with delusions (8) Dementia of the Alzheimer's type with early onset with behavioral disturbance EMILY CHARLES MD Jan 22, 2021 21:55
[2021-01-23 06:58] VITALS: BP 109/60
[2021-01-23] MEDS: POTASSIUM CHLORIDE 20 MEQ TABLET.ER. PO SCH (08:00)
[2021-01-23] MEDS: VALPROATE ACID 250 MG/5 ML ORAL SOLUTION PO SCH ×4 (08:39→21:00)
[2021-01-23] MEDS: LISINOPRIL 10 MG TABLET PO SCH (08:40)
[2021-01-23] MEDS: MULTIVITAMIN with MINERAL TABLET. PO SCH (08:40)
[2021-01-23] MEDS: SERTRALINE 50 MG TABLET. PO SCH (08:40)
[2021-01-23] MEDS: QUEtiapine 25 MG TABLET. PO SCH ×3 (08:40→17:00)
[2021-01-23] MEDS: LIDOCAINE (700MG/PATCH) PATCH. TD SCH (09:00)
[2021-01-23 15:46] VITALS: BP 102/64
--- NOTE | 2021-01-23 16:38 | TX PLAN ---
Interdisciplinary Tx Plan Admission Information Dec 02, 2020 at 15:25 Legal Status (on Admission): Voluntary DPOA/Guardian Name: Aron Razo Contact Other Contact Name: [facility] Other Contact Verified Code Status: DNR Allergies: Coded Allergies: No Known Drug Allergies (Unverified , 12/02/20) Diagnoses Primary Diagnosis: Major Neurocognitive D/O, Vascular Alzheimers with delusions and depression Reasons for Admission: Aggressive, Sig. Change Sleep, Combative, Confusion/Disoriented, Poor impulse control, Other Problem in Patient's Words: She has declined pretty quickly in the last 3 months. Additional Admission Comments: According to the intake, pt was biting, hitting staff at LT, throwing things, agitated, restless, wandering, attempts to elope, poor sleep, poor intake, throwing cups of water on LTC staff, attempted to elope out of the back door of [facility] ED during medical clearance. Problems Active Problems: restless wandering increased confusion Inactive Problems: medication compliance Pt Strengths/Limitations Ability for [place]: Poor Cognitive Functioning/Ability: Poor Communication Skills/Ability: Poor Financial Resources: Good Insight/Judgement: Poor Intellectual Ability: Poor Physical Health: Fair Social Skills: Fair Stability in Family: Good Stability in School/Work: Poor Verbal Skills: Poor Discharge Criteria Discharge Criteria: No need for close observ., Adequate arrangements @DC, Improved behavior, Improved mood/thought Preliminary Discharge Plan Preliminary DC Plan: Current Living Arrange. Initial D/C Plan Unknown at this time Identified Discharge Needs: Pt may bring pt home; unknown at this time. Currently Utilized Resources Currently Utilized Resources/P: Primary Care Physician Identified Problems/Hx/Goals Objectives/Short-Term Goals Short Term Goals: Dec. Aggression, Dec. Outbursts, Medication Stabilization, Monitor Med Effects, Promote Coping Skill Short Term Goals in Patient's: N/A Interventions/Frequency Staff Interventions/Frequency&: Psychiatrist to assess pt at least 3x per week for medication management. Social [facility]ok to assess pt at least 2x per week to identify barriers to care and discharge planning. Nursing to assess medication effects, behavior modification and complete 15 minute checks. 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 Education: Pt did graduate high school (12th grade); attended [employer] in [place] with her B.A. in [place] degree. Community Follow-up Primary Care Physician Mental Health Services Treatment Plan Explained Patient/Fiber Technician had this treatment plan explained to him/her as indicated by the signature below and has been given the opportunity to ask questions and make suggestions: Date: Patient/Fiber Technician Signature: Status Update Update Pt /DPOA, Aron, is eating roughly 50% of meals and sleeping on average 7.5 hours per night. Pt continues to wander the unit but is not exit seeking. Pt is confused but able to be redirected. Pt Percocet was discontinued and a lidocaine patch has been applied to pt lower back. Pt has been approved to [facility] and can discharge 01/30; SW to continue to follow up with [facility] to finalize all discharge plans. HEDY BARRON Jan 23, 2021 16:38
[2021-01-23] MEDS: PATCH REMOVAL. MC SCH (21:00)
--- NOTE | 2021-01-23 22:13 | PDOC ---
Exam Note: Earle Note: Please also refer to the separate dictated note~for this date of service dictated separately.~Patient seen individually. Discussed the patient with Nursing staff reviewed the chart.~Reviewed interim history and current functioning. Reviewed vital signs,~Labs/ Radiology~and current medications noted below. Continue current treatment with the changes noted in the dictated addendum note Assessment: Vital Signs/I&O: Vital Signs Date Time Temp Pulse Resp B/P (MAP) Pulse Ox O2 Delivery O2 Flow Rate FiO2 01/23/21 15:46 97.6 76 20 102/64 (77) 98 01/23/21 06:58 Room Air I & O 01/22/21 01/22/21 01/23/21 15:00 23:00 07:00 Intake Total 60 ml 480 ml Balance 60 ml 480 ml Current Medications: Meds: Current Medications Medications (Trade) Dose Ordered Sig/Brianne Route PRN Reason Start Time Stop Time Status Last Admin Dose Admin Lorazepam (Ativan) 1 mg STK-MED ONCE .ROUTE 12/02/20 14:25 12/02/20 14:25 DC Lorazepam (Ativan) 1 mg 1X ONCE PO 12/02/20 14:30 12/02/20 14:36 DC 12/02/20 14:31 Potassium/ Phosphorus/Sodium (Phos-Nak) 1 pkt 1X ONCE PO 12/02/20 15:00 12/02/20 15:01 Cancel Potassium Bicarbonate (Potassium Effervescent Tablet) 20 meq STK-MED ONCE .ROUTE 12/02/20 14:56 12/02/20 14:57 DC Potassium Bicarbonate (Potassium Effervescent Tablet) 20 meq 1X ONCE PO 12/02/20 15:00 12/02/20 15:01 DC 12/02/20 15:00 Acetaminophen (Tylenol) 650 mg PRN Q6HRS PRN PO MILD PAIN / TEMP > 100.3'F 12/02/20 15:45 01/20/21 19:51 Multi-Ingredient Ointment (Analgesic [place]) 1 itz PRN QID PRN TP MUSCLE PAIN 12/02/20 15:45 Al Hydroxide/Mg Hydroxide (Mylanta Plus Xs) 15 ml PRN AFTMEALHC PRN PO DYSPEPSIA 12/02/20 15:45 Magnesium Hydroxide (Milk Of Magnesia) 2,400 mg PRN QHS PRN PO CONSTIPATION 12/02/20 15:45 12/03/20 16:29 Lisinopril (Prinivil) 10 mg DAILY PO 12/03/20 09:00 01/23/21 08:40 Multivitamins/ Calcium (Thera-M Plus) 1 tab DAILY PO 12/03/20 09:00 01/23/21 08:40 Olanzapine (ZyPREXA ZYDIS) 2.5 mg PRN Q2HRS PRN PO PSYCHOSIS 12/02/20 17:00 01/21/21 15:45 Potassium Chloride (Klor-Con) 20 meq DAILYWBKFT PO 12/04/20 08:00 01/23/21 08:00 Sertraline HCl (Zoloft) 25 mg DAILY PO 12/04/20 09:00 12/06/20 21:00 DC 12/06/20 08:17 Sertraline HCl (Zoloft) 50 mg DAILY PO 12/07/20 09:00 01/23/21 08:40 Quetiapine Fumarate (SEROquel) 12.5 mg 0900 PO 12/09/20 09:00 12/10/20 16:51 DC 12/10/20 09:00 Quetiapine Fumarate (SEROquel) 12.5 mg ONCE ONCE PO 12/08/20 17:15 12/08/20 17:16 DC 12/08/20 17:15 Quetiapine Fumarate (SEROquel) 12.5 mg 1700 PO 12/09/20 18:00 01/02/21 11:54 DC 01/01/21 17:00 Quetiapine Fumarate (SEROquel) 25 mg 0900 PO 12/11/20 09:00 01/23/21 08:40 Divalproex Sodium (Depakote Sprinkles) 125 mg BID PO 12/12/20 21:00 12/13/20 10:16 DC 12/13/20 08:35 Trazodone HCl (Desyrel) 50 mg PRN QHS PRN PO INSOMNIA 12/13/20 00:30 01/18/21 20:32 Divalproex Sodium (Depakote Sprinkles) 125 mg 0900,1700 PO 12/13/20 17:00 12/13/20 17:49 DC 12/13/20 16:35 Valproic Acid (Depakene) 125 mg 0900,1700 PO 12/14/20 09:00 12/17/20 15:35 DC 12/17/20 08:39 Valproic Acid (Depakene) 125 mg [id number] PO 12/17/20 21:00 12/23/20 16:57 DC 12/23/20 14:05 Valproic Acid (Depakene) 125 mg QID PO 12/23/20 17:00 01/02/21 11:54 DC 01/02/21 08:35 Hydroxyzine HCl (Atarax) 10 mg PRN Q2HR PRN PO ITCHING 12/29/20 20:15 01/18/21 21:22 Quetiapine Fumarate (SEROquel) 25 mg 1700 PO 01/02/21 17:00 01/23/21 17:00 Valproic Acid (Depakene) 125 mg 1300,1700 PO 01/02/21 13:00 01/23/21 17:00 Quetiapine Fumarate (SEROquel) 12.5 mg 1200 PO 01/02/21 12:00 01/23/21 12:00 Valproic Acid (Depakene) 250 mg 0900,2100 PO 01/02/21 21:00 01/23/21 21:00 Oxycodone/ Acetaminophen (Percocet 7.5/ 325) 1 tab PRN Q6HRS PRN PO MOD-SEV PAIN 01/13/21 16:45 01/21/21 18:29 DC Lidocaine (Lidoderm) 2 patch DAILY TD 01/22/21 09:00 01/23/21 09:00 Miscellaneous (Lidoderm Patch Removal) 1 ea QHS MC 01/22/21 21:00 01/23/21 21:00 I have reviewed the current psychotropics carefully including drug interactions. Risk benefit ratio favors no change other than as noted in my dictated progress note. 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
[2021-01-24 06:22] VITALS: BP 139/65
--- NOTE | 2021-01-24 06:43 | PDOC ---
Exam Note: Earle Note: This note is a late entry for 01/22/2021overs elements not covered in my initial note. Subjective: The patient was seen face to face in the evening of 01/22/2021 with Rolan APPIAH, discussed and reviewed the chart. The patient slept 8hours previous night. She remains confused, has some back pain, tearful at times. She has been given Lidocaine patch, does better with this. Review of Systems: Ambulation impaired. No CV, , pulmonary, eye system symptoms on review. Mental Status Exam: The patient is oriented to herself. Insight and judgment, recent and remote memory, attention and concentration is poor consistent with her diagnoses. Laboratory Data: Reviewed. Impression: Major neurocognitive disorder Alzheimer vascular with delusion, depression, and behavioral disturbance. Anxiety disorder unspecified. Impulse control disorder unspecified. Plan: No change from initial note. Assessment: Vital Signs/I&O: Vital Signs Date Time Temp Pulse Resp B/P (MAP) Pulse Ox O2 Delivery O2 Flow Rate FiO2 01/24/21 06:22 97.0 74 16 139/65 (89) 98 Room Air I & O 01/23/21 01/23/21 01/24/21 15:00 23:00 07:00 Intake Total 480 ml 480 ml Balance 480 ml 480 ml Current Medications: Meds: Current Medications Medications (Trade) Dose Ordered Sig/Brianne Route PRN Reason Start Time Stop Time Status Last Admin Dose Admin Lorazepam (Ativan) 1 mg STK-MED ONCE .ROUTE 12/02/20 14:25 12/02/20 14:25 DC Lorazepam (Ativan) 1 mg 1X ONCE PO 12/02/20 14:30 12/02/20 14:36 DC 12/02/20 14:31 Potassium/ Phosphorus/Sodium (Phos-Nak) 1 pkt 1X ONCE PO 12/02/20 15:00 12/02/20 15:01 Cancel Potassium Bicarbonate (Potassium Effervescent Tablet) 20 meq STK-MED ONCE .ROUTE 12/02/20 14:56 12/02/20 14:57 DC Potassium Bicarbonate (Potassium Effervescent Tablet) 20 meq 1X ONCE PO 12/02/20 15:00 12/02/20 15:01 DC 12/02/20 15:00 Acetaminophen (Tylenol) 650 mg PRN Q6HRS PRN PO MILD PAIN / TEMP > 100.3'F 12/02/20 15:45 01/20/21 19:51 Multi-Ingredient Ointment (Analgesic [place]) 1 itz PRN QID PRN TP MUSCLE PAIN 12/02/20 15:45 Al Hydroxide/Mg Hydroxide (Mylanta Plus Xs) 15 ml PRN AFTMEALHC PRN PO DYSPEPSIA 12/02/20 15:45 Magnesium Hydroxide (Milk Of Magnesia) 2,400 mg PRN QHS PRN PO CONSTIPATION 12/02/20 15:45 12/03/20 16:29 Lisinopril (Prinivil) 10 mg DAILY PO 12/03/20 09:00 01/23/21 08:40 Multivitamins/ Calcium (Thera-M Plus) 1 tab DAILY PO 12/03/20 09:00 01/23/21 08:40 Olanzapine (ZyPREXA ZYDIS) 2.5 mg PRN Q2HRS PRN PO PSYCHOSIS 12/02/20 17:00 01/21/21 15:45 Potassium Chloride (Klor-Con) 20 meq DAILYWBKFT PO 12/04/20 08:00 01/23/21 08:00 Sertraline HCl (Zoloft) 25 mg DAILY PO 12/04/20 09:00 12/06/20 21:00 DC 12/06/20 08:17 Sertraline HCl (Zoloft) 50 mg DAILY PO 12/07/20 09:00 01/23/21 08:40 Quetiapine Fumarate (SEROquel) 12.5 mg 0900 PO 12/09/20 09:00 12/10/20 16:51 DC 12/10/20 09:00 Quetiapine Fumarate (SEROquel) 12.5 mg ONCE ONCE PO 12/08/20 17:15 12/08/20 17:16 DC 12/08/20 17:15 Quetiapine Fumarate (SEROquel) 12.5 mg 1700 PO 12/09/20 18:00 01/02/21 11:54 DC 01/01/21 17:00 Quetiapine Fumarate (SEROquel) 25 mg 0900 PO 12/11/20 09:00 01/23/21 08:40 Divalproex Sodium (Depakote Sprinkles) 125 mg BID PO 12/12/20 21:00 12/13/20 10:16 DC 12/13/20 08:35 Trazodone HCl (Desyrel) 50 mg PRN QHS PRN PO INSOMNIA 12/13/20 00:30 01/18/21 20:32 Divalproex Sodium (Depakote Sprinkles) 125 mg 0900,1700 PO 12/13/20 17:00 12/13/20 17:49 DC 12/13/20 16:35 Valproic Acid (Depakene) 125 mg 0900,1700 PO 12/14/20 09:00 12/17/20 15:35 DC 12/17/20 08:39 Valproic Acid (Depakene) 125 mg [id number] PO 12/17/20 21:00 12/23/20 16:57 DC 12/23/20 14:05 Valproic Acid (Depakene) 125 mg QID PO 12/23/20 17:00 01/02/21 11:54 DC 01/02/21 08:35 Hydroxyzine HCl (Atarax) 10 mg PRN Q2HR PRN PO ITCHING 12/29/20 20:15 01/18/21 21:22 Quetiapine Fumarate (SEROquel) 25 mg 1700 PO 01/02/21 17:00 01/23/21 17:00 Valproic Acid (Depakene) 125 mg 1300,1700 PO 01/02/21 13:00 01/23/21 17:00 Quetiapine Fumarate (SEROquel) 12.5 mg 1200 PO 01/02/21 12:00 01/23/21 12:00 Valproic Acid (Depakene) 250 mg 0900,2100 PO 01/02/21 21:00 01/23/21 21:00 Oxycodone/ Acetaminophen (Percocet 7.5/ 325) 1 tab PRN Q6HRS PRN PO MOD-SEV PAIN 01/13/21 16:45 01/21/21 18:29 DC Lidocaine (Lidoderm) 2 patch DAILY TD 01/22/21 09:00 01/23/21 09:00 Miscellaneous (Lidoderm Patch Removal) 1 ea QHS MC 01/22/21 21:00 01/23/21 21:00 I have reviewed the current psychotropics carefully including drug interactions. Risk benefit ratio favors no change other than as noted in my dictated progress note. 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
--- NOTE | 2021-01-24 07:04 | PDOC ---
Exam Note: Earle Note: This note is a late entry for 01/23/2021overs elements not covered in my initial note. Subjective: The patient was reviewed at treatment team meeting individually in the morning on 01/23/2021 with Maryana Rice, Cathy Hargrove (medical social worker), Elizabeth, activity therapy and Tiffany RN, discussed and reviewed the chart. The patient slept 6-3/4 hours previous night. The patients Antonio attended the conference. She thoroughly enjoys the ice-cream and was holding onto a cup and eating it in the dayroom as I met with her. She has had some significant pain issues and Percocet was changed to topical application which is better. Review of Systems: Ambulation impaired. No CV, , pulmonary, ENT system symptoms on review. She is not forthcoming when questioned but poor vision. Reliability poor. Mental Status Exam: The patient is oriented to herself. Insight and judgment, recent and remote memory, attention and concentration is poor consistent with her diagnoses. Laboratory Data: Reviewed. Impression: Major neurocognitive disorder Alzheimer vascular with delusion, depression, and behavioral disturbance. Anxiety disorder unspecified. Impulse control disorder unspecified. Plan: No change from initial note. Social service staff is actively trying to find custodial placement for the patient in coordination with the patients . Assessment: Vital Signs/I&O: Vital Signs Date Time Temp Pulse Resp B/P (MAP) Pulse Ox O2 Delivery O2 Flow Rate FiO2 01/24/21 06:22 97.0 74 16 139/65 (89) 98 Room Air I & O 01/23/21 01/23/21 01/24/21 15:00 23:00 07:00 Intake Total 480 ml 480 ml Balance 480 ml 480 ml Current Medications: Meds: Current Medications Medications (Trade) Dose Ordered Sig/Brianne Route PRN Reason Start Time Stop Time Status Last Admin Dose Admin Lorazepam (Ativan) 1 mg STK-MED ONCE .ROUTE 12/02/20 14:25 12/02/20 14:25 DC Lorazepam (Ativan) 1 mg 1X ONCE PO 12/02/20 14:30 12/02/20 14:36 DC 12/02/20 14:31 Potassium/ Phosphorus/Sodium (Phos-Nak) 1 pkt 1X ONCE PO 12/02/20 15:00 12/02/20 15:01 Cancel Potassium Bicarbonate (Potassium Effervescent Tablet) 20 meq STK-MED ONCE .ROUTE 12/02/20 14:56 12/02/20 14:57 DC Potassium Bicarbonate (Potassium Effervescent Tablet) 20 meq 1X ONCE PO 12/02/20 15:00 12/02/20 15:01 DC 12/02/20 15:00 Acetaminophen (Tylenol) 650 mg PRN Q6HRS PRN PO MILD PAIN / TEMP > 100.3'F 12/02/20 15:45 01/20/21 19:51 Multi-Ingredient Ointment (Analgesic [place]) 1 itz PRN QID PRN TP MUSCLE PAIN 12/02/20 15:45 Al Hydroxide/Mg Hydroxide (Mylanta Plus Xs) 15 ml PRN AFTMEALHC PRN PO DYSPEPSIA 12/02/20 15:45 Magnesium Hydroxide (Milk Of Magnesia) 2,400 mg PRN QHS PRN PO CONSTIPATION 12/02/20 15:45 12/03/20 16:29 Lisinopril (Prinivil) 10 mg DAILY PO 12/03/20 09:00 01/23/21 08:40 Multivitamins/ Calcium (Thera-M Plus) 1 tab DAILY PO 12/03/20 09:00 01/23/21 08:40 Olanzapine (ZyPREXA ZYDIS) 2.5 mg PRN Q2HRS PRN PO PSYCHOSIS 12/02/20 17:00 01/21/21 15:45 Potassium Chloride (Klor-Con) 20 meq DAILYWBKFT PO 12/04/20 08:00 01/23/21 08:00 Sertraline HCl (Zoloft) 25 mg DAILY PO 12/04/20 09:00 12/06/20 21:00 DC 12/06/20 08:17 Sertraline HCl (Zoloft) 50 mg DAILY PO 12/07/20 09:00 01/23/21 08:40 Quetiapine Fumarate (SEROquel) 12.5 mg 0900 PO 12/09/20 09:00 12/10/20 16:51 DC 12/10/20 09:00 Quetiapine Fumarate (SEROquel) 12.5 mg ONCE ONCE PO 12/08/20 17:15 12/08/20 17:16 DC 12/08/20 17:15 Quetiapine Fumarate (SEROquel) 12.5 mg 1700 PO 12/09/20 18:00 01/02/21 11:54 DC 01/01/21 17:00 Quetiapine Fumarate (SEROquel) 25 mg 0900 PO 12/11/20 09:00 01/23/21 08:40 Divalproex Sodium (Depakote Sprinkles) 125 mg BID PO 12/12/20 21:00 12/13/20 10:16 DC 12/13/20 08:35 Trazodone HCl (Desyrel) 50 mg PRN QHS PRN PO INSOMNIA 12/13/20 00:30 01/18/21 20:32 Divalproex Sodium (Depakote Sprinkles) 125 mg 0900,1700 PO 12/13/20 17:00 12/13/20 17:49 DC 12/13/20 16:35 Valproic Acid (Depakene) 125 mg 0900,1700 PO 12/14/20 09:00 12/17/20 15:35 DC 12/17/20 08:39 Valproic Acid (Depakene) 125 mg [id number] PO 12/17/20 21:00 12/23/20 16:57 DC 12/23/20 14:05 Valproic Acid (Depakene) 125 mg QID PO 12/23/20 17:00 01/02/21 11:54 DC 01/02/21 08:35 Hydroxyzine HCl (Atarax) 10 mg PRN Q2HR PRN PO ITCHING 12/29/20 20:15 01/18/21 21:22 Quetiapine Fumarate (SEROquel) 25 mg 1700 PO 01/02/21 17:00 01/23/21 17:00 Valproic Acid (Depakene) 125 mg 1300,1700 PO 01/02/21 13:00 01/23/21 17:00 Quetiapine Fumarate (SEROquel) 12.5 mg 1200 PO 01/02/21 12:00 01/23/21 12:00 Valproic Acid (Depakene) 250 mg 0900,2100 PO 01/02/21 21:00 01/23/21 21:00 Oxycodone/ Acetaminophen (Percocet 7.5/ 325) 1 tab PRN Q6HRS PRN PO MOD-SEV PAIN 01/13/21 16:45 01/21/21 18:29 DC Lidocaine (Lidoderm) 2 patch DAILY TD 01/22/21 09:00 01/23/21 09:00 Miscellaneous (Lidoderm Patch Removal) 1 ea QHS MC 01/22/21 21:00 01/23/21 21:00 I have reviewed the current psychotropics carefully including drug interactions. Risk benefit ratio favors no change other than as noted in my dictated progress note. Diagnosis: Problems: (1) Major neurocognitive disorder (2) Impulse control disorder, unspecified (3) Anxiety disorder, unspecified (4) Dementia, vascular, with depression (5) Dementia, vascular, with delusions (6) Dementia in Alzheimer's disease with depression (7) Dementia in Alzheimer's disease with delusions (8) Dementia of the Alzheimer's type with early onset with behavioral disturbance EMILY CHARLES MD Jan 24, 2021 07:04
[2021-01-24] MEDS: POTASSIUM CHLORIDE 20 MEQ TABLET.ER. PO SCH (08:00)
[2021-01-24] MEDS: MULTIVITAMIN with MINERAL TABLET. PO SCH (08:19)
[2021-01-24] MEDS: VALPROATE ACID 250 MG/5 ML ORAL SOLUTION PO SCH ×5 (08:20→20:28)
[2021-01-24] MEDS: LISINOPRIL 10 MG TABLET PO SCH (08:21)
[2021-01-24] MEDS: QUEtiapine 25 MG TABLET. PO SCH ×3 (08:21→16:25)
[2021-01-24] MEDS: SERTRALINE 50 MG TABLET. PO SCH (08:21)
[2021-01-24] MEDS: LIDOCAINE (700MG/PATCH) PATCH. TD SCH (09:00)
[2021-01-24 15:43] VITALS: BP 104/62
[2021-01-24 16:42] LABS: BASO # 0.1 x10^3/uL (0.0-0.2); BASO % 1 % (0-3); EOS # 0.1 x10^3/uL (0.0-0.7); EOS % 1 % (0-3); HEMATOCRIT 34.3 % (36.0-47.0); HEMOGLOBIN 11.3 g/dL (12.0-15.5); LYMPH # 2.1 x10^3/uL (1.0-4.8); LYMPH % 27 % (24-48); MEAN CORPUSCULAR HEMOGLOBIN 32 pg (25-35); MEAN CORPUSCULAR HGB CONC 33 g/dL (31-37); MEAN CORPUSCULAR VOLUME 96 fL (79-100); MONO # 0.7 x10^3/uL (0.0-1.1); MONO % 8 % (0-9); NEUT # 4.8 x10^3uL (1.8-7.7); NEUT % 62 % (31-73); PLATELET COUNT 238 x10^3/uL (140-400); RED BLOOD COUNT 3.58 x10^6/uL (3.50-5.40); RED CELL DISTRIBUTION WIDTH 13.7 % (11.5-14.5); WHITE BLOOD COUNT 7.8 x10^3/uL (4.0-11.0)
[2021-01-24 16:49] LABS: ALBUMIN 3.8 g/dL (3.4-5.0); ALBUMIN/GLOBULIN RATIO 1.1 (1.0-1.7); ALK PHOS 67 U/L (46-116); ALT (SGPT) 24 U/L (14-59); ANION GAP 9 (6-14); AST (SGOT) 14 U/L (15-37); BLOOD UREA NITROGEN 20 mg/dL (7-20); BUN/CREATININE RATIO 25 (6-20); CALCIUM 9.5 mg/dL (8.5-10.1); CARBON DIOXIDE 28 mmol/L (21-32); CHLORIDE 108 mmol/L (98-107); CREATININE 0.8 mg/dL (0.6-1.0); GFR 68.5; GLUCOSE 115 mg/dL (70-99); POTASSIUM 4.7 mmol/L (3.5-5.1); SODIUM 145 mmol/L (136-145); TOTAL BILIRUBIN 0.2 mg/dL (0.2-1.0); TOTAL PROTEIN 7.2 g/dL (6.4-8.2)
[2021-01-24 16:50] LABS: VAL ACID 109 mcg/mL (50-100)
[2021-01-24] MEDS: PATCH REMOVAL. MC SCH (21:00)
--- NOTE | 2021-01-24 21:35 | PDOC ---
Exam Note: Earle Note: Please also refer to the separate dictated note~for this date of service dictated separately.~Patient seen individually. Discussed the patient with Nursing staff reviewed the chart.~Reviewed interim history and current functioning. Reviewed vital signs,~Labs/ Radiology~and current medications noted below. Continue current treatment with the changes noted in the dictated addendum note Assessment: Vital Signs/I&O: Vital Signs Date Time Temp Pulse Resp B/P (MAP) Pulse Ox O2 Delivery O2 Flow Rate FiO2 01/24/21 15:43 97.2 89 16 104/62 (76) 98 Room Air I & O 01/23/21 01/23/21 01/24/21 14:59 22:59 06:59 Intake Total 480 ml 480 ml Balance 480 ml 480 ml Labs: Laboratory Tests Test 01/24/21 16:26 White Blood Count 7.8 x10^3/uL (4.0-11.0) Red Blood Count 3.58 x10^6/uL (3.50-5.40) Hemoglobin 11.3 g/dL (12.0-15.5) L Hematocrit 34.3 % (36.0-47.0) L Mean Corpuscular Volume 96 fL (79-100) Mean Corpuscular Hemoglobin 32 pg (25-35) Mean Corpuscular Hemoglobin Concent 33 g/dL (31-37) Red Cell Distribution Width 13.7 % (11.5-14.5) Platelet Count 238 x10^3/uL (140-400) Neutrophils (%) (Auto) 62 % (31-73) Lymphocytes (%) (Auto) 27 % (24-48) Monocytes (%) (Auto) 8 % (0-9) Eosinophils (%) (Auto) 1 % (0-3) Basophils (%) (Auto) 1 % (0-3) Neutrophils # (Auto) 4.8 x10^3uL (1.8-7.7) Lymphocytes # (Auto) 2.1 x10^3/uL (1.0-4.8) Monocytes # (Auto) 0.7 x10^3/uL (0.0-1.1) Eosinophils # (Auto) 0.1 x10^3/uL (0.0-0.7) Basophils # (Auto) 0.1 x10^3/uL (0.0-0.2) Sodium Level 145 mmol/L (136-145) Potassium Level 4.7 mmol/L (3.5-5.1) Chloride Level 108 mmol/L (98-107) H Carbon Dioxide Level 28 mmol/L (21-32) Anion Gap 9 (6-14) Blood Urea Nitrogen 20 mg/dL (7-20) Creatinine 0.8 mg/dL (0.6-1.0) Estimated GFR (Cockcroft-Gault) 68.5 BUN/Creatinine Ratio 25 (6-20) H Glucose Level 115 mg/dL (70-99) H Calcium Level 9.5 mg/dL (8.5-10.1) Total Bilirubin 0.2 mg/dL (0.2-1.0) Aspartate Amino Transferase (AST) 14 U/L (15-37) L Alanine Aminotransferase (ALT) 24 U/L (14-59) Alkaline Phosphatase 67 U/L (46-116) Total Protein 7.2 g/dL (6.4-8.2) Albumin 3.8 g/dL (3.4-5.0) Albumin/Globulin Ratio 1.1 (1.0-1.7) Valproic Acid Level 109 mcg/mL (50-100) H Valproic Acid Last Dose Date 01/23/21 Valproic Acid Last Dose Time 2100 Current Medications: Meds: Laboratory Tests Test 01/24/21 16:26 White Blood Count 7.8 x10^3/uL Red Blood Count 3.58 x10^6/uL Hemoglobin 11.3 g/dL Hematocrit 34.3 % Mean Corpuscular Volume 96 fL Mean Corpuscular Hemoglobin 32 pg Mean Corpuscular Hemoglobin Concent 33 g/dL Red Cell Distribution Width 13.7 % Platelet Count 238 x10^3/uL Neutrophils (%) (Auto) 62 % Lymphocytes (%) (Auto) 27 % Monocytes (%) (Auto) 8 % Eosinophils (%) (Auto) 1 % Basophils (%) (Auto) 1 % Neutrophils # (Auto) 4.8 x10^3uL Lymphocytes # (Auto) 2.1 x10^3/uL Monocytes # (Auto) 0.7 x10^3/uL Eosinophils # (Auto) 0.1 x10^3/uL Basophils # (Auto) 0.1 x10^3/uL Sodium Level 145 mmol/L Potassium Level 4.7 mmol/L Chloride Level 108 mmol/L Carbon Dioxide Level 28 mmol/L Anion Gap 9 Blood Urea Nitrogen 20 mg/dL Creatinine 0.8 mg/dL Estimated GFR (Cockcroft-Gault) 68.5 BUN/Creatinine Ratio 25 Glucose Level 115 mg/dL Calcium Level 9.5 mg/dL Total Bilirubin 0.2 mg/dL Aspartate Amino Transf (AST/SGOT) 14 U/L Alanine Aminotransferase (ALT/SGPT) 24 U/L Alkaline Phosphatase 67 U/L Total Protein 7.2 g/dL Albumin 3.8 g/dL Albumin/Globulin Ratio 1.1 Valproic Acid (Depakene) Level 109 mcg/mL Valproic Acid Last Dose Date 01/23/21 Valproic Acid Last Dose Time 2100 Current Medications Medications (Trade) Dose Ordered Sig/Brianne Route PRN Reason Start Time Stop Time Status Last Admin Dose Admin Lorazepam (Ativan) 1 mg STK-MED ONCE .ROUTE 12/02/20 14:25 12/02/20 14:25 DC Lorazepam (Ativan) 1 mg 1X ONCE PO 12/02/20 14:30 12/02/20 14:36 DC 12/02/20 14:31 Potassium/ Phosphorus/Sodium (Phos-Nak) 1 pkt 1X ONCE PO 12/02/20 15:00 12/02/20 15:01 Cancel Potassium Bicarbonate (Potassium Effervescent Tablet) 20 meq STK-MED ONCE .ROUTE 12/02/20 14:56 12/02/20 14:57 DC Potassium Bicarbonate (Potassium Effervescent Tablet) 20 meq 1X ONCE PO 12/02/20 15:00 12/02/20 15:01 DC 12/02/20 15:00 Acetaminophen (Tylenol) 650 mg PRN Q6HRS PRN PO MILD PAIN / TEMP > 100.3'F 12/02/20 15:45 01/20/21 19:51 Multi-Ingredient Ointment (Analgesic [place]) 1 itz PRN QID PRN TP MUSCLE PAIN 12/02/20 15:45 Al Hydroxide/Mg Hydroxide (Mylanta Plus Xs) 15 ml PRN AFTMEALHC PRN PO DYSPEPSIA 12/02/20 15:45 Magnesium Hydroxide (Milk Of Magnesia) 2,400 mg PRN QHS PRN PO CONSTIPATION 12/02/20 15:45 12/03/20 16:29 Lisinopril (Prinivil) 10 mg DAILY PO 12/03/20 09:00 01/24/21 08:21 Multivitamins/ Calcium (Thera-M Plus) 1 tab DAILY PO 12/03/20 09:00 01/23/21 08:40 Olanzapine (ZyPREXA ZYDIS) 2.5 mg PRN Q2HRS PRN PO PSYCHOSIS 12/02/20 17:00 01/21/21 15:45 Potassium Chloride (Klor-Con) 20 meq DAILYWBKFT PO 12/04/20 08:00 01/23/21 08:00 Sertraline HCl (Zoloft) 25 mg DAILY PO 12/04/20 09:00 12/06/20 21:00 DC 12/06/20 08:17 Sertraline HCl (Zoloft) 50 mg DAILY PO 12/07/20 09:00 01/24/21 08:21 Quetiapine Fumarate (SEROquel) 12.5 mg 0900 PO 12/09/20 09:00 12/10/20 16:51 DC 12/10/20 09:00 Quetiapine Fumarate (SEROquel) 12.5 mg ONCE ONCE PO 12/08/20 17:15 12/08/20 17:16 DC 12/08/20 17:15 Quetiapine Fumarate (SEROquel) 12.5 mg 1700 PO 12/09/20 18:00 01/02/21 11:54 DC 01/01/21 17:00 Quetiapine Fumarate (SEROquel) 25 mg 0900 PO 12/11/20 09:00 01/24/21 08:21 Divalproex Sodium (Depakote Sprinkles) 125 mg BID PO 12/12/20 21:00 12/13/20 10:16 DC 12/13/20 08:35 Trazodone HCl (Desyrel) 50 mg PRN QHS PRN PO INSOMNIA 12/13/20 00:30 01/18/21 20:32 Divalproex Sodium (Depakote Sprinkles) 125 mg 0900,1700 PO 12/13/20 17:00 12/13/20 17:49 DC 12/13/20 16:35 Valproic Acid (Depakene) 125 mg 0900,1700 PO 12/14/20 09:00 12/17/20 15:35 DC 12/17/20 08:39 Valproic Acid (Depakene) 125 mg [id number] PO 12/17/20 21:00 12/23/20 16:57 DC 12/23/20 14:05 Valproic Acid (Depakene) 125 mg QID PO 12/23/20 17:00 01/02/21 11:54 DC 01/02/21 08:35 Hydroxyzine HCl (Atarax) 10 mg PRN Q2HR PRN PO ITCHING 12/29/20 20:15 01/18/21 21:22 Quetiapine Fumarate (SEROquel) 25 mg 1700 PO 01/02/21 17:00 01/24/21 16:25 Valproic Acid (Depakene) 125 mg 1300,1700 PO 01/02/21 13:00 01/24/21 18:13 DC 01/24/21 16:26 Quetiapine Fumarate (SEROquel) 12.5 mg 1200 PO 01/02/21 12:00 01/24/21 12:26 Valproic Acid (Depakene) 250 mg 0900,2100 PO 01/02/21 21:00 01/24/21 18:13 DC 01/24/21 08:20 Oxycodone/ Acetaminophen (Percocet 7.5/ 325) 1 tab PRN Q6HRS PRN PO MOD-SEV PAIN 01/13/21 16:45 01/21/21 18:29 DC Lidocaine (Lidoderm) 2 patch DAILY TD 01/22/21 09:00 01/24/21 09:00 Miscellaneous (Lidoderm Patch Removal) 1 ea QHS MC 01/22/21 21:00 01/23/21 21:00 Valproic Acid (Depakene) 125 mg 1300,1700,2100 PO 01/24/21 21:00 01/24/21 20:28 Valproic Acid (Depakene) 250 mg 0900 PO 01/25/21 09:00 Current Medications Medications (Trade) Dose Ordered Sig/Brianne Route PRN Reason Start Time Stop Time Status Last Admin Dose Admin Valproic Acid (Depakene) 125 mg 1300,1700,2100 PO 01/24/21 21:00 01/24/21 20:28 I have reviewed the current psychotropics carefully including drug interactions. Risk benefit ratio favors no change other than as noted in my dictated progress note. Diagnosis: Problems: (1) Major neurocognitive disorder (2) Impulse control disorder, unspecified (3) Anxiety disorder, unspecified (4) Dementia, vascular, with depression (5) Dementia, vascular, with delusions (6) Dementia in Alzheimer's disease with depression (7) Dementia in Alzheimer's disease with delusions (8) Dementia of the Alzheimer's type with early onset with behavioral disturbance EMILY CHARLES MD Jan 24, 2021 21:35
[2021-01-25 05:59] VITALS: BP 114/57
[2021-01-25 07:54] LABS: VAL ACID 70 mcg/mL (50-100)
[2021-01-25] MEDS: POTASSIUM CHLORIDE 20 MEQ TABLET.ER. PO SCH (08:00)
[2021-01-25] MEDS: SERTRALINE 50 MG TABLET. PO SCH (08:17)
[2021-01-25] MEDS: LISINOPRIL 10 MG TABLET PO SCH (08:17)
[2021-01-25] MEDS: QUEtiapine 25 MG TABLET. PO SCH ×3 (08:17→16:07)
[2021-01-25] MEDS: VALPROATE ACID 250 MG/5 ML ORAL SOLUTION PO SCH ×4 (08:18→20:13)
[2021-01-25] MEDS: MULTIVITAMIN with MINERAL TABLET. PO SCH (08:18)
[2021-01-25] MEDS: LIDOCAINE (700MG/PATCH) PATCH. TD SCH (09:00)
[2021-01-25] MEDS: hydrOXYzine HCL 10 MG TABLET PO PRN (15:02)
[2021-01-25 15:28] VITALS: BP 146/82
[2021-01-25] MEDS: PATCH REMOVAL. MC SCH (21:00)
--- NOTE | 2021-01-25 22:35 | PDOC ---
Exam Note: Earle Note: Please also refer to the separate dictated note~for this date of service dictated separately.~Patient seen individually. Discussed the patient with Nursing staff reviewed the chart.~Reviewed interim history and current functioning. Reviewed vital signs,~Labs/ Radiology~and current medications noted below. Continue current treatment with the changes noted in the dictated addendum note Assessment: Vital Signs/I&O: Vital Signs Date Time Temp Pulse Resp B/P (MAP) Pulse Ox O2 Delivery O2 Flow Rate FiO2 01/25/21 15:28 98.0 98 20 146/82 (103) 97 Room Air I & O 01/24/21 01/24/21 01/25/21 15:00 23:00 07:00 Intake Total 600 ml 480 ml Balance 600 ml 480 ml Labs: Laboratory Tests Test 01/25/21 07:25 Valproic Acid Level 70 mcg/mL (50-100) Valproic Acid Last Dose Date 01/24/21 Valproic Acid Last Dose Time 2100 Current Medications: Meds: Laboratory Tests Test 01/25/21 07:25 Valproic Acid (Depakene) Level 70 mcg/mL Valproic Acid Last Dose Date 01/24/21 Valproic Acid Last Dose Time 2100 Current Medications Medications (Trade) Dose Ordered Sig/Brianne Route PRN Reason Start Time Stop Time Status Last Admin Dose Admin Lorazepam (Ativan) 1 mg STK-MED ONCE .ROUTE 12/02/20 14:25 12/02/20 14:25 DC Lorazepam (Ativan) 1 mg 1X ONCE PO 12/02/20 14:30 12/02/20 14:36 DC 12/02/20 14:31 Potassium/ Phosphorus/Sodium (Phos-Nak) 1 pkt 1X ONCE PO 12/02/20 15:00 12/02/20 15:01 Cancel Potassium Bicarbonate (Potassium Effervescent Tablet) 20 meq STK-MED ONCE .ROUTE 12/02/20 14:56 12/02/20 14:57 DC Potassium Bicarbonate (Potassium Effervescent Tablet) 20 meq 1X ONCE PO 12/02/20 15:00 12/02/20 15:01 DC 12/02/20 15:00 Acetaminophen (Tylenol) 650 mg PRN Q6HRS PRN PO MILD PAIN / TEMP > 100.3'F 12/02/20 15:45 01/20/21 19:51 Multi-Ingredient Ointment (Analgesic [place]) 1 itz PRN QID PRN TP MUSCLE PAIN 12/02/20 15:45 Al Hydroxide/Mg Hydroxide (Mylanta Plus Xs) 15 ml PRN AFTMEALHC PRN PO DYSPEPSIA 12/02/20 15:45 Magnesium Hydroxide (Milk Of Magnesia) 2,400 mg PRN QHS PRN PO CONSTIPATION 12/02/20 15:45 12/03/20 16:29 Lisinopril (Prinivil) 10 mg DAILY PO 12/03/20 09:00 01/25/21 08:17 Multivitamins/ Calcium (Thera-M Plus) 1 tab DAILY PO 12/03/20 09:00 01/23/21 08:40 Olanzapine (ZyPREXA ZYDIS) 2.5 mg PRN Q2HRS PRN PO PSYCHOSIS 12/02/20 17:00 01/25/21 15:02 Potassium Chloride (Klor-Con) 20 meq DAILYWBKFT PO 12/04/20 08:00 01/23/21 08:00 Sertraline HCl (Zoloft) 25 mg DAILY PO 12/04/20 09:00 12/06/20 21:00 DC 12/06/20 08:17 Sertraline HCl (Zoloft) 50 mg DAILY PO 12/07/20 09:00 01/25/21 08:17 Quetiapine Fumarate (SEROquel) 12.5 mg 0900 PO 12/09/20 09:00 12/10/20 16:51 DC 12/10/20 09:00 Quetiapine Fumarate (SEROquel) 12.5 mg ONCE ONCE PO 12/08/20 17:15 12/08/20 17:16 DC 12/08/20 17:15 Quetiapine Fumarate (SEROquel) 12.5 mg 1700 PO 12/09/20 18:00 01/02/21 11:54 DC 01/01/21 17:00 Quetiapine Fumarate (SEROquel) 25 mg 0900 PO 12/11/20 09:00 01/25/21 08:17 Divalproex Sodium (Depakote Sprinkles) 125 mg BID PO 12/12/20 21:00 12/13/20 10:16 DC 12/13/20 08:35 Trazodone HCl (Desyrel) 50 mg PRN QHS PRN PO INSOMNIA 12/13/20 00:30 01/18/21 20:32 Divalproex Sodium (Depakote Sprinkles) 125 mg 0900,1700 PO 12/13/20 17:00 12/13/20 17:49 DC 12/13/20 16:35 Valproic Acid (Depakene) 125 mg 0900,1700 PO 12/14/20 09:00 12/17/20 15:35 DC 12/17/20 08:39 Valproic Acid (Depakene) 125 mg [id number] PO 12/17/20 21:00 12/23/20 16:57 DC 12/23/20 14:05 Valproic Acid (Depakene) 125 mg QID PO 12/23/20 17:00 01/02/21 11:54 DC 01/02/21 08:35 Hydroxyzine HCl (Atarax) 10 mg PRN Q2HR PRN PO ITCHING 12/29/20 20:15 01/25/21 15:02 Quetiapine Fumarate (SEROquel) 25 mg 1700 PO 01/02/21 17:00 01/25/21 16:07 Valproic Acid (Depakene) 125 mg 1300,1700 PO 01/02/21 13:00 01/24/21 18:13 DC 01/24/21 16:26 Quetiapine Fumarate (SEROquel) 12.5 mg 1200 PO 01/02/21 12:00 01/25/21 12:00 Valproic Acid (Depakene) 250 mg 0900,2100 PO 01/02/21 21:00 01/24/21 18:13 DC 01/24/21 08:20 Oxycodone/ Acetaminophen (Percocet 7.5/ 325) 1 tab PRN Q6HRS PRN PO MOD-SEV PAIN 01/13/21 16:45 01/21/21 18:29 DC Lidocaine (Lidoderm) 2 patch DAILY TD 01/22/21 09:00 01/25/21 09:00 Miscellaneous (Lidoderm Patch Removal) 1 ea QHS MC 01/22/21 21:00 01/24/21 21:00 Valproic Acid (Depakene) 125 mg 1300,1700,2100 PO 01/24/21 21:00 8/7/21 20:13 Valproic Acid (Depakene) 250 mg 0900 PO 01/25/21 09:00 01/25/21 08:18 Current Medications Medications (Trade) Dose Ordered Sig/Brianne Route PRN Reason Start Time Stop Time Status Last Admin Dose Admin Valproic Acid (Depakene) 250 mg 0900 PO 01/25/21 09:00 01/25/21 08:18 I have reviewed the current psychotropics carefully including drug interactions. Risk benefit ratio favors no change other than as noted in my dictated progress note. Diagnosis: Problems: (1) Major neurocognitive disorder (2) Impulse control disorder, unspecified (3) Anxiety disorder, unspecified (4) Dementia, vascular, with depression (5) Dementia, vascular, with delusions (6) Dementia in Alzheimer's disease with depression (7) Dementia in Alzheimer's disease with delusions (8) Dementia of the Alzheimer's type with early onset with behavioral disturbance EMILY CHARLES MD Jan 25, 2021 22:35
[2021-01-26 06:28] VITALS: BP 145/86
[2021-01-26] MEDS: POTASSIUM CHLORIDE 20 MEQ TABLET.ER. PO SCH (07:21)
[2021-01-26] MEDS: MULTIVITAMIN with MINERAL TABLET. PO SCH (07:22)
[2021-01-26] MEDS: SERTRALINE 50 MG TABLET. PO SCH (08:04)
[2021-01-26] MEDS: LISINOPRIL 10 MG TABLET PO SCH (08:05)
[2021-01-26] MEDS: QUEtiapine 25 MG TABLET. PO SCH ×3 (08:05→17:00)
[2021-01-26] MEDS: VALPROATE ACID 250 MG/5 ML ORAL SOLUTION PO SCH ×4 (08:05→20:02)
[2021-01-26] MEDS: LIDOCAINE (700MG/PATCH) PATCH. TD SCH (08:10)
[2021-01-26 16:20] VITALS: BP 132/85
[2021-01-26] MEDS: PATCH REMOVAL. MC SCH (20:02)
--- NOTE | 2021-01-26 21:43 | PDOC ---
Exam Note: Earle Note: Please also refer to the separate dictated note~for this date of service dictated separately.~Patient seen individually. Discussed the patient with Nursing staff reviewed the chart.~Reviewed interim history and current functioning. Reviewed vital signs,~Labs/ Radiology~and current medications noted below. Continue current treatment with the changes noted in the dictated addendum note Assessment: Vital Signs/I&O: Vital Signs Date Time Temp Pulse Resp B/P (MAP) Pulse Ox O2 Delivery O2 Flow Rate FiO2 01/26/21 16:20 97.6 103 18 132/85 (101) 95 01/25/21 15:28 Room Air I & O 01/25/21 01/25/21 01/26/21 14:59 22:59 06:59 Intake Total 480 ml 360 ml Balance 480 ml 360 ml Current Medications: Meds: Current Medications Medications (Trade) Dose Ordered Sig/Brianne Route PRN Reason Start Time Stop Time Status Last Admin Dose Admin Lorazepam (Ativan) 1 mg STK-MED ONCE .ROUTE 12/02/20 14:25 12/02/20 14:25 DC Lorazepam (Ativan) 1 mg 1X ONCE PO 12/02/20 14:30 12/02/20 14:36 DC 12/02/20 14:31 Potassium/ Phosphorus/Sodium (Phos-Nak) 1 pkt 1X ONCE PO 12/02/20 15:00 12/02/20 15:01 Cancel Potassium Bicarbonate (Potassium Effervescent Tablet) 20 meq STK-MED ONCE .ROUTE 12/02/20 14:56 12/02/20 14:57 DC Potassium Bicarbonate (Potassium Effervescent Tablet) 20 meq 1X ONCE PO 12/02/20 15:00 12/02/20 15:01 DC 12/02/20 15:00 Acetaminophen (Tylenol) 650 mg PRN Q6HRS PRN PO MILD PAIN / TEMP > 100.3'F 12/02/20 15:45 01/20/21 19:51 Multi-Ingredient Ointment (Analgesic [place]) 1 itz PRN QID PRN TP MUSCLE PAIN 12/02/20 15:45 Al Hydroxide/Mg Hydroxide (Mylanta Plus Xs) 15 ml PRN AFTMEALHC PRN PO DYSPEPSIA 12/02/20 15:45 Magnesium Hydroxide (Milk Of Magnesia) 2,400 mg PRN QHS PRN PO CONSTIPATION 12/02/20 15:45 12/03/20 16:29 Lisinopril (Prinivil) 10 mg DAILY PO 12/03/20 09:00 01/26/21 08:05 Multivitamins/ Calcium (Thera-M Plus) 1 tab DAILY PO 12/03/20 09:00 01/23/21 08:40 Olanzapine (ZyPREXA ZYDIS) 2.5 mg PRN Q2HRS PRN PO PSYCHOSIS 12/02/20 17:00 01/26/21 20:02 Potassium Chloride (Klor-Con) 20 meq DAILYWBKFT PO 12/04/20 08:00 01/23/21 08:00 Sertraline HCl (Zoloft) 25 mg DAILY PO 12/04/20 09:00 12/06/20 21:00 DC 12/06/20 08:17 Sertraline HCl (Zoloft) 50 mg DAILY PO 12/07/20 09:00 01/26/21 08:04 Quetiapine Fumarate (SEROquel) 12.5 mg 0900 PO 12/09/20 09:00 12/10/20 16:51 DC 12/10/20 09:00 Quetiapine Fumarate (SEROquel) 12.5 mg ONCE ONCE PO 12/08/20 17:15 12/08/20 17:16 DC 12/08/20 17:15 Quetiapine Fumarate (SEROquel) 12.5 mg 1700 PO 12/09/20 18:00 01/02/21 11:54 DC 01/01/21 17:00 Quetiapine Fumarate (SEROquel) 25 mg 0900 PO 12/11/20 09:00 01/26/21 08:05 Divalproex Sodium (Depakote Sprinkles) 125 mg BID PO 12/12/20 21:00 12/13/20 10:16 DC 12/13/20 08:35 Trazodone HCl (Desyrel) 50 mg PRN QHS PRN PO INSOMNIA 12/13/20 00:30 01/18/21 20:32 Divalproex Sodium (Depakote Sprinkles) 125 mg 0900,1700 PO 12/13/20 17:00 12/13/20 17:49 DC 12/13/20 16:35 Valproic Acid (Depakene) 125 mg 0900,1700 PO 12/14/20 09:00 12/17/20 15:35 DC 12/17/20 08:39 Valproic Acid (Depakene) 125 mg [id number] PO 12/17/20 21:00 12/23/20 16:57 DC 12/23/20 14:05 Valproic Acid (Depakene) 125 mg QID PO 12/23/20 17:00 01/02/21 11:54 DC 01/02/21 08:35 Hydroxyzine HCl (Atarax) 10 mg PRN Q2HR PRN PO ITCHING 12/29/20 20:15 01/25/21 15:02 Quetiapine Fumarate (SEROquel) 25 mg 1700 PO 01/02/21 17:00 01/26/21 17:00 Valproic Acid (Depakene) 125 mg 1300,1700 PO 01/02/21 13:00 01/24/21 18:13 DC 01/24/21 16:26 Quetiapine Fumarate (SEROquel) 12.5 mg 1200 PO 01/02/21 12:00 01/26/21 12:00 Valproic Acid (Depakene) 250 mg 0900,2100 PO 01/02/21 21:00 01/24/21 18:13 DC 01/24/21 08:20 Oxycodone/ Acetaminophen (Percocet 7.5/ 325) 1 tab PRN Q6HRS PRN PO MOD-SEV PAIN 01/13/21 16:45 01/21/21 18:29 DC Lidocaine (Lidoderm) 2 patch DAILY TD 01/22/21 09:00 01/26/21 08:10 Miscellaneous (Lidoderm Patch Removal) 1 ea QHS MC 01/22/21 21:00 01/26/21 20:02 Valproic Acid (Depakene) 125 mg 1300,1700,2100 PO 01/24/21 21:00 01/26/21 20:02 Valproic Acid (Depakene) 250 mg 0900 PO 01/25/21 09:00 01/26/21 08:05 I have reviewed the current psychotropics carefully including drug interactions. Risk benefit ratio favors no change other than as noted in my dictated progress note. Diagnosis: Problems: (1) Major neurocognitive disorder (2) Impulse control disorder, unspecified (3) Anxiety disorder, unspecified (4) Dementia, vascular, with depression (5) Dementia, vascular, with delusions (6) Dementia in Alzheimer's disease with depression (7) Dementia in Alzheimer's disease with delusions (8) Dementia of the Alzheimer's type with early onset with behavioral di sturbance EMILY CHARLES MD Jan 26, 2021 21:43
[2021-01-26] MEDS: hydrOXYzine HCL 10 MG TABLET PO PRN (22:16)
[2021-01-26] MEDS: traZODone 50 MG TABLET. PO PRN (22:16)
[2021-01-27 06:03] VITALS: BP 116/62
--- NOTE | 2021-01-27 06:50 | PDOC ---
Exam Note: Earle Note: This note is a late entry for 01/24/2021overs elements not covered in my initial note. Subjective: The patient was seen face to face in the evening of 01/24/2021 with Tiffany APPIAH, discussed and reviewed the chart. The patient slept 7-3/4 hours previous night. She is confused, disorganized, wandering, takes her medications crushed mixed with small amount of Sprite. Valproic acid level was 109 but this was done 2 hours after the last dosage. We will repeat it in the morning 12 hours after the last dosage. AST 14 and ALT 24. We will also reduce the 2100 Depakote from 250 mg to 125 mg. Review of Systems: Ambulation impaired. No CV, , pulmonary, ENT system symptoms on review. Mental Status Exam: The patient is oriented to herself. Insight and judgment, recent and remote memory, attention and concentration is poor consistent with her diagnoses. Laboratory Data: Reviewed. Impression: Major neurocognitive disorder Alzheimer vascular with delusion, depression, and behavioral disturbance. Anxiety disorder unspecified. Impulse control disorder unspecified. Plan: No change from initial note. Assessment: Vital Signs/I&O: Vital Signs Date Time Temp Pulse Resp B/P (MAP) Pulse Ox O2 Delivery O2 Flow Rate FiO2 01/27/21 06:03 97.3 72 16 116/62 (80) 98 01/25/21 15:28 Room Air I & O 01/26/21 01/26/21 01/27/21 15:00 23:00 07:00 Intake Total 320 ml 220 ml Balance 320 ml 220 ml Current Medications: Meds: Current Medications Medications (Trade) Dose Ordered Sig/Brianne Route PRN Reason Start Time Stop Time Status Last Admin Dose Admin Lorazepam (Ativan) 1 mg STK-MED ONCE .ROUTE 12/02/20 14:25 12/02/20 14:25 DC Lorazepam (Ativan) 1 mg 1X ONCE PO 12/02/20 14:30 12/02/20 14:36 DC 12/02/20 14:31 Potassium/ Phosphorus/Sodium (Phos-Nak) 1 pkt 1X ONCE PO 12/02/20 15:00 12/02/20 15:01 Cancel Potassium Bicarbonate (Potassium Effervescent Tablet) 20 meq STK-MED ONCE .ROUTE 12/02/20 14:56 12/02/20 14:57 DC Potassium Bicarbonate (Potassium Effervescent Tablet) 20 meq 1X ONCE PO 12/02/20 15:00 12/02/20 15:01 DC 12/02/20 15:00 Acetaminophen (Tylenol) 650 mg PRN Q6HRS PRN PO MILD PAIN / TEMP > 100.3'F 12/02/20 15:45 01/20/21 19:51 Multi-Ingredient Ointment (Analgesic [place]) 1 itz PRN QID PRN TP MUSCLE PAIN 12/02/20 15:45 Al Hydroxide/Mg Hydroxide (Mylanta Plus Xs) 15 ml PRN AFTMEALHC PRN PO DYSPEPSIA 12/02/20 15:45 Magnesium Hydroxide (Milk Of Magnesia) 2,400 mg PRN QHS PRN PO CONSTIPATION 12/02/20 15:45 12/03/20 16:29 Lisinopril (Prinivil) 10 mg DAILY PO 12/03/20 09:00 01/26/21 08:05 Multivitamins/ Calcium (Thera-M Plus) 1 tab DAILY PO 12/03/20 09:00 01/23/21 08:40 Olanzapine (ZyPREXA ZYDIS) 2.5 mg PRN Q2HRS PRN PO PSYCHOSIS 12/02/20 17:00 01/26/21 20:02 Potassium Chloride (Klor-Con) 20 meq DAILYWBKFT PO 12/04/20 08:00 01/23/21 08:00 Sertraline HCl (Zoloft) 25 mg DAILY PO 12/04/20 09:00 12/06/20 21:00 DC 12/06/20 08:17 Sertraline HCl (Zoloft) 50 mg DAILY PO 12/07/20 09:00 01/26/21 08:04 Quetiapine Fumarate (SEROquel) 12.5 mg 0900 PO 12/09/20 09:00 12/10/20 16:51 DC 12/10/20 09:00 Quetiapine Fumarate (SEROquel) 12.5 mg ONCE ONCE PO 12/08/20 17:15 12/08/20 17:16 DC 12/08/20 17:15 Quetiapine Fumarate (SEROquel) 12.5 mg 1700 PO 12/09/20 18:00 01/02/21 11:54 DC 01/01/21 17:00 Quetiapine Fumarate (SEROquel) 25 mg 0900 PO 12/11/20 09:00 01/26/21 08:05 Divalproex Sodium (Depakote Sprinkles) 125 mg BID PO 12/12/20 21:00 12/13/20 10:16 DC 12/13/20 08:35 Trazodone HCl (Desyrel) 50 mg PRN QHS PRN PO INSOMNIA 12/13/20 00:30 01/26/21 22:16 Divalproex Sodium (Depakote Sprinkles) 125 mg 0900,1700 PO 12/13/20 17:00 12/13/20 17:49 DC 12/13/20 16:35 Valproic Acid (Depakene) 125 mg 0900,1700 PO 12/14/20 09:00 12/17/20 15:35 DC 12/17/20 08:39 Valproic Acid (Depakene) 125 mg [id number] PO 12/17/20 21:00 12/23/20 16:57 DC 12/23/20 14:05 Valproic Acid (Depakene) 125 mg QID PO 12/23/20 17:00 01/02/21 11:54 DC 01/02/21 08:35 Hydroxyzine HCl (Atarax) 10 mg PRN Q2HR PRN PO ITCHING 12/29/20 20:15 01/26/21 22:16 Quetiapine Fumarate (SEROquel) 25 mg 1700 PO 01/02/21 17:00 01/26/21 17:00 Valproic Acid (Depakene) 125 mg 1300,1700 PO 01/02/21 13:00 01/24/21 18:13 DC 01/24/21 16:26 Quetiapine Fumarate (SEROquel) 12.5 mg 1200 PO 01/02/21 12:00 01/26/21 12:00 Valproic Acid (Depakene) 250 mg 0900,2100 PO 01/02/21 21:00 01/24/21 18:13 DC 01/24/21 08:20 Oxycodone/ Acetaminophen (Percocet 7.5/ 325) 1 tab PRN Q6HRS PRN PO MOD-SEV PAIN 01/13/21 16:45 8/3/21 18:29 DC Lidocaine (Lidoderm) 2 patch DAILY TD 01/22/21 09:00 01/26/21 08:10 Miscellaneous (Lidoderm Patch Removal) 1 ea QHS MC 01/22/21 21:00 01/26/21 20:02 Valproic Acid (Depakene) 125 mg 1300,1700,2100 PO 01/24/21 21:00 01/26/21 20:02 Valproic Acid (Depakene) 250 mg 0900 PO 01/25/21 09:00 01/26/21 08:05 I have reviewed the current psychotropics carefully including drug interactions. Risk benefit ratio favors no change other than as noted in my dictated progress note. Diagnosis: Problems: (1) Major neurocognitive disorder (2) Impulse control disorder, unspecified (3) Anxiety disorder, unspecified (4) Dementia, vascular, with depression (5) Dementia, vascular, with delusions (6) Dementia in Alzheimer's disease with depression (7) Dementia in Alzheimer's disease with delusions (8) Dementia of the Alzheimer's type with early onset with behavioral disturbance EMILY CHARLES MD Jan 27, 2021 06:50
--- NOTE | 2021-01-27 07:00 | PDOC ---
Exam Note: Earle Note: This note is a late entry for 01/25/2021overs elements not covered in my initial note. Subjective: The patient was seen face to face in the evening of 01/25/2021 with Tiffany APPIAH, discussed and reviewed the chart. The patient slept 6-3/4 hours previous night. Valproic acid level morning of 01/25 was 70. Around 7 a.m. she was tearful. When I questioned her about her Aron she did not seemed to recognize the name. She was paranoid believed there was a man talking to her. Received Zyprexa and Atarax p.r.n. x1. Review of Systems: Ambulation impaired. No CV, , pulmonary, ENT system symptoms on review. Mental Status Exam: The patient is oriented to herself. Insight and judgment, recent and remote memory, attention and concentration is poor consistent with her diagnoses. Laboratory Data: Reviewed. Impression: Major neurocognitive disorder Alzheimer vascular with delusion, depression, and behavioral disturbance. Anxiety disorder unspecified. Impulse control disorder unspecified. Plan: No change from initial note. Assessment: Vital Signs/I&O: Vital Signs Date Time Temp Pulse Resp B/P (MAP) Pulse Ox O2 Delivery O2 Flow Rate FiO2 01/27/21 06:03 97.3 72 16 116/62 (80) 98 01/25/21 15:28 Room Air I & O 01/26/21 01/26/21 01/27/21 15:00 23:00 07:00 Intake Total 320 ml 220 ml Balance 320 ml 220 ml Current Medications: Meds: Current Medications Medications (Trade) Dose Ordered Sig/Brianne Route PRN Reason Start Time Stop Time Status Last Admin Dose Admin Lorazepam (Ativan) 1 mg STK-MED ONCE .ROUTE 12/02/20 14:25 12/02/20 14:25 DC Lorazepam (Ativan) 1 mg 1X ONCE PO 12/02/20 14:30 12/02/20 14:36 DC 12/02/20 14:31 Potassium/ Phosphorus/Sodium (Phos-Nak) 1 pkt 1X ONCE PO 12/02/20 15:00 12/02/20 15:01 Cancel Potassium Bicarbonate (Potassium Effervescent Tablet) 20 meq STK-MED ONCE .ROUTE 12/02/20 14:56 12/02/20 14:57 DC Potassium Bicarbonate (Potassium Effervescent Tablet) 20 meq 1X ONCE PO 12/02/20 15:00 12/02/20 15:01 DC 12/02/20 15:00 Acetaminophen (Tylenol) 650 mg PRN Q6HRS PRN PO MILD PAIN / TEMP > 100.3'F 12/02/20 15:45 01/20/21 19:51 Multi-Ingredient Ointment (Analgesic [place]) 1 itz PRN QID PRN TP MUSCLE PAIN 12/02/20 15:45 Al Hydroxide/Mg Hydroxide (Mylanta Plus Xs) 15 ml PRN AFTMEALHC PRN PO DYSPEPSIA 12/02/20 15:45 Magnesium Hydroxide (Milk Of Magnesia) 2,400 mg PRN QHS PRN PO CONSTIPATION 12/02/20 15:45 12/03/20 16:29 Lisinopril (Prinivil) 10 mg DAILY PO 12/03/20 09:00 01/26/21 08:05 Multivitamins/ Calcium (Thera-M Plus) 1 tab DAILY PO 12/03/20 09:00 01/23/21 08:40 Olanzapine (ZyPREXA ZYDIS) 2.5 mg PRN Q2HRS PRN PO PSYCHOSIS 12/02/20 17:00 01/26/21 20:02 Potassium Chloride (Klor-Con) 20 meq DAILYWBKFT PO 12/04/20 08:00 01/23/21 08:00 Sertraline HCl (Zoloft) 25 mg DAILY PO 12/04/20 09:00 12/06/20 21:00 DC 12/06/20 08:17 Sertraline HCl (Zoloft) 50 mg DAILY PO 12/07/20 09:00 01/26/21 08:04 Quetiapine Fumarate (SEROquel) 12.5 mg 0900 PO 12/09/20 09:00 12/10/20 16:51 DC 12/10/20 09:00 Quetiapine Fumarate (SEROquel) 12.5 mg ONCE ONCE PO 12/08/20 17:15 12/08/20 17:16 DC 12/08/20 17:15 Quetiapine Fumarate (SEROquel) 12.5 mg 1700 PO 12/09/20 18:00 01/02/21 11:54 DC 01/01/21 17:00 Quetiapine Fumarate (SEROquel) 25 mg 0900 PO 12/11/20 09:00 01/26/21 08:05 Divalproex Sodium (Depakote Sprinkles) 125 mg BID PO 12/12/20 21:00 12/13/20 10:16 DC 12/13/20 08:35 Trazodone HCl (Desyrel) 50 mg PRN QHS PRN PO INSOMNIA 12/13/20 00:30 01/26/21 22:16 Divalproex Sodium (Depakote Sprinkles) 125 mg 0900,1700 PO 12/13/20 17:00 12/13/20 17:49 DC 12/13/20 16:35 Valproic Acid (Depakene) 125 mg 0900,1700 PO 12/14/20 09:00 12/17/20 15:35 DC 12/17/20 08:39 Valproic Acid (Depakene) 125 mg [id number] PO 12/17/20 21:00 12/23/20 16:57 DC 12/23/20 14:05 Valproic Acid (Depakene) 125 mg QID PO 12/23/20 17:00 01/02/21 11:54 DC 01/02/21 08:35 Hydroxyzine HCl (Atarax) 10 mg PRN Q2HR PRN PO ITCHING 12/29/20 20:15 01/26/21 22:16 Quetiapine Fumarate (SEROquel) 25 mg 1700 PO 01/02/21 17:00 01/26/21 17:00 Valproic Acid (Depakene) 125 mg 1300,1700 PO 01/02/21 13:00 01/24/21 18:13 DC 01/24/21 16:26 Quetiapine Fumarate (SEROquel) 12.5 mg 1200 PO 01/02/21 12:00 01/26/21 12:00 Valproic Acid (Depakene) 250 mg 0900,2100 PO 01/02/21 21:00 01/24/21 18:13 DC 01/24/21 08:20 Oxycodone/ Acetaminophen (Percocet 7.5/ 325) 1 tab PRN Q6HRS PRN PO MOD-SEV PAIN 01/13/21 16:45 01/21/21 18:29 DC Lidocaine (Lidoderm) 2 patch DAILY TD 01/22/21 09:00 01/26/21 08:10 Miscellaneous (Lidoderm Patch Removal) 1 ea QHS MC 01/22/21 21:00 01/26/21 20:02 Valproic Acid (Depakene) 125 mg 1300,1700,2100 PO 01/24/21 21:00 01/26/21 20:02 Valproic Acid (Depakene) 250 mg 0900 PO 01/25/21 09:00 01/26/21 08:05 I have reviewed the current psychotropics carefully including drug interactions. Risk benefit ratio favors no change other than as noted in my dictated progress note. Diagnosis: Problems: (1) Major neurocognitive disorder (2) Impulse control disorder, unspecified (3) Anxiety disorder, unspecified (4) Dementia, vascular, with depression (5) Dementia, vascular, with delusions (6) Dementia in Alzheimer's disease with depression (7) Dementia in Alzheimer's disease with delusions (8) Dementia of the Alzheimer's type with early onset with behavioral disturbance EMILY CHARLES MD Jan 27, 2021 07:00
--- NOTE | 2021-01-27 07:10 | PDOC ---
Exam Note: Earle Note: This note is a late entry for 01/26/2021overs elements not covered in my initial note. Subjective: The patient was seen face to face in the evening of 01/26/2021 with Tiffany APPIAH, discussed and reviewed the chart. The patient slept 7 hours previous night. She is agitated at times but got better after she talked to her on the phone. Review of Systems: Ambulation impaired. No CV, , pulmonary, ENT system symptoms on review. Poor vision. Mental Status Exam: The patient is oriented to herself. Insight and judgment, recent and remote memory, attention and concentration is poor consistent with her diagnoses. Laboratory Data: Reviewed. Impression: Major neurocognitive disorder Alzheimer vascular with delusion, depression, and behavioral disturbance. Anxiety disorder unspecified. Impulse control disorder unspecified. Plan: No change from initial note. Assessment: Vital Signs/I&O: Vital Signs Date Time Temp Pulse Resp B/P (MAP) Pulse Ox O2 Delivery O2 Flow Rate FiO2 01/27/21 06:03 97.3 72 16 116/62 (80) 98 01/25/21 15:28 Room Air I & O 01/26/21 01/26/21 01/27/21 15:00 23:00 07:00 Intake Total 320 ml 220 ml Balance 320 ml 220 ml Current Medications: Meds: Current Medications Medications (Trade) Dose Ordered Sig/Brianne Route PRN Reason Start Time Stop Time Status Last Admin Dose Admin Lorazepam (Ativan) 1 mg STK-MED ONCE .ROUTE 12/02/20 14:25 12/02/20 14:25 DC Lorazepam (Ativan) 1 mg 1X ONCE PO 12/02/20 14:30 12/02/20 14:36 DC 12/02/20 14:31 Potassium/ Phosphorus/Sodium (Phos-Nak) 1 pkt 1X ONCE PO 12/02/20 15:00 12/02/20 15:01 Cancel Potassium Bicarbonate (Potassium Effervescent Tablet) 20 meq STK-MED ONCE .ROUTE 12/02/20 14:56 12/02/20 14:57 DC Potassium Bicarbonate (Potassium Effervescent Tablet) 20 meq 1X ONCE PO 12/02/20 15:00 12/02/20 15:01 DC 12/02/20 15:00 Acetaminophen (Tylenol) 650 mg PRN Q6HRS PRN PO MILD PAIN / TEMP > 100.3'F 12/02/20 15:45 01/20/21 19:51 Multi-Ingredient Ointment (Analgesic [place]) 1 itz PRN QID PRN TP MUSCLE PAIN 12/02/20 15:45 Al Hydroxide/Mg Hydroxide (Mylanta Plus Xs) 15 ml PRN AFTMEALHC PRN PO DYSPEPSIA 12/02/20 15:45 Magnesium Hydroxide (Milk Of Magnesia) 2,400 mg PRN QHS PRN PO CONSTIPATION 12/02/20 15:45 12/03/20 16:29 Lisinopril (Prinivil) 10 mg DAILY PO 12/03/20 09:00 01/26/21 08:05 Multivitamins/ Calcium (Thera-M Plus) 1 tab DAILY PO 12/03/20 09:00 01/23/21 08:40 Olanzapine (ZyPREXA ZYDIS) 2.5 mg PRN Q2HRS PRN PO PSYCHOSIS 12/02/20 17:00 01/26/21 20:02 Potassium Chloride (Klor-Con) 20 meq DAILYWBKFT PO 12/04/20 08:00 01/23/21 08:00 Sertraline HCl (Zoloft) 25 mg DAILY PO 12/04/20 09:00 12/06/20 21:00 DC 12/06/20 08:17 Sertraline HCl (Zoloft) 50 mg DAILY PO 12/07/20 09:00 01/26/21 08:04 Quetiapine Fumarate (SEROquel) 12.5 mg 0900 PO 12/09/20 09:00 12/10/20 16:51 DC 12/10/20 09:00 Quetiapine Fumarate (SEROquel) 12.5 mg ONCE ONCE PO 12/08/20 17:15 12/08/20 17:16 DC 12/08/20 17:15 Quetiapine Fumarate (SEROquel) 12.5 mg 1700 PO 12/09/20 18:00 01/02/21 11:54 DC 01/01/21 17:00 Quetiapine Fumarate (SEROquel) 25 mg 0900 PO 12/11/20 09:00 01/26/21 08:05 Divalproex Sodium (Depakote Sprinkles) 125 mg BID PO 12/12/20 21:00 12/13/20 10:16 DC 12/13/20 08:35 Trazodone HCl (Desyrel) 50 mg PRN QHS PRN PO INSOMNIA 12/13/20 00:30 01/26/21 22:16 Divalproex Sodium (Depakote Sprinkles) 125 mg 0900,1700 PO 12/13/20 17:00 12/13/20 17:49 DC 12/13/20 16:35 Valproic Acid (Depakene) 125 mg 0900,1700 PO 12/14/20 09:00 12/17/20 15:35 DC 12/17/20 08:39 Valproic Acid (Depakene) 125 mg [id number] PO 12/17/20 21:00 12/23/20 16:57 DC 12/23/20 14:05 Valproic Acid (Depakene) 125 mg QID PO 12/23/20 17:00 01/02/21 11:54 DC 01/02/21 08:35 Hydroxyzine HCl (Atarax) 10 mg PRN Q2HR PRN PO ITCHING 12/29/20 20:15 01/26/21 22:16 Quetiapine Fumarate (SEROquel) 25 mg 1700 PO 01/02/21 17:00 01/26/21 17:00 Valproic Acid (Depakene) 125 mg 1300,1700 PO 01/02/21 13:00 01/24/21 18:13 DC 01/24/21 16:26 Quetiapine Fumarate (SEROquel) 12.5 mg 1200 PO 01/02/21 12:00 01/26/21 12:00 Valproic Acid (Depakene) 250 mg 0900,2100 PO 01/02/21 21:00 01/24/21 18:13 DC 01/24/21 08:20 Oxycodone/ Acetaminophen (Percocet 7.5/ 325) 1 tab PRN Q6HRS PRN PO MOD-SEV PAIN 01/13/21 16:45 01/21/21 18:29 DC Lidocaine (Lidoderm) 2 patch DAILY TD 01/22/21 09:00 01/26/21 08:10 Miscellaneous (Lidoderm Patch Removal) 1 ea QHS MC 01/22/21 21:00 01/26/21 20:02 Valproic Acid (Depakene) 125 mg 1300,1700,2100 PO 01/24/21 21:00 01/26/21 20:02 Valproic Acid (Depakene) 250 mg 0900 PO 01/25/21 09:00 01/26/21 08:05 I have reviewed the current psychotropics carefully including drug interactions. Risk benefit ratio favors no change other than as noted in my dictated progress note. Diagnosis: Problems: (1) Major neurocognitive disorder (2) Impulse control disorder, unspecified (3) Anxiety disorder, unspecified (4) Dementia, vascular, with depression (5) Dementia, vascular, with delusions (6) Dementia in Alzheimer's disease with depression (7) Dementia in Alzheimer's disease with delusions (8) Dementia of the Alzheimer's type with early onset with behavioral disturbance EMILY CHARLES MD Jan 27, 2021 07:10
[2021-01-27] MEDS: VALPROATE ACID 250 MG/5 ML ORAL SOLUTION PO SCH ×4 (08:04→19:59)
[2021-01-27] MEDS: SERTRALINE 50 MG TABLET. PO SCH (08:05)
[2021-01-27] MEDS: LISINOPRIL 10 MG TABLET PO SCH (08:05)
[2021-01-27] MEDS: POTASSIUM CHLORIDE 20 MEQ TABLET.ER. PO SCH (08:05)
[2021-01-27] MEDS: MULTIVITAMIN with MINERAL TABLET. PO SCH (08:05)
[2021-01-27] MEDS: QUEtiapine 25 MG TABLET. PO SCH ×3 (08:05→17:00)
[2021-01-27] MEDS: LIDOCAINE (700MG/PATCH) PATCH. TD SCH (08:07)
[2021-01-27 16:10] VITALS: BP 114/72
[2021-01-27] MEDS: hydrOXYzine HCL 10 MG TABLET PO PRN (17:10)
[2021-01-27] MEDS: PATCH REMOVAL. MC SCH (20:02)
--- NOTE | 2021-01-27 21:58 | PDOC ---
Exam Note: Earle Note: Please also refer to the separate dictated note~for this date of service dictated separately.~Patient seen individually. Discussed the patient with Nursing staff reviewed the chart.~Reviewed interim history and current functioning. Reviewed vital signs,~Labs/ Radiology~and current medications noted below. Continue current treatment with the changes noted in the dictated addendum note Assessment: Vital Signs/I&O: Vital Signs Date Time Temp Pulse Resp B/P (MAP) Pulse Ox O2 Delivery O2 Flow Rate FiO2 01/27/21 16:10 98.3 101 20 114/72 (86) 94 01/25/21 15:28 Room Air I & O 01/26/21 01/26/21 01/27/21 15:00 23:00 07:00 Intake Total 320 ml 220 ml Balance 320 ml 220 ml Current Medications: Meds: Current Medications Medications (Trade) Dose Ordered Sig/Brianne Route PRN Reason Start Time Stop Time Status Last Admin Dose Admin Lorazepam (Ativan) 1 mg STK-MED ONCE .ROUTE 12/02/20 14:25 12/02/20 14:25 DC Lorazepam (Ativan) 1 mg 1X ONCE PO 12/02/20 14:30 12/02/20 14:36 DC 12/02/20 14:31 Potassium/ Phosphorus/Sodium (Phos-Nak) 1 pkt 1X ONCE PO 12/02/20 15:00 12/02/20 15:01 Cancel Potassium Bicarbonate (Potassium Effervescent Tablet) 20 meq STK-MED ONCE .ROUTE 12/02/20 14:56 12/02/20 14:57 DC Potassium Bicarbonate (Potassium Effervescent Tablet) 20 meq 1X ONCE PO 12/02/20 15:00 12/02/20 15:01 DC 12/02/20 15:00 Acetaminophen (Tylenol) 650 mg PRN Q6HRS PRN PO MILD PAIN / TEMP > 100.3'F 12/02/20 15:45 01/20/21 19:51 Multi-Ingredient Ointment (Analgesic [place]) 1 itz PRN QID PRN TP MUSCLE PAIN 12/02/20 15:45 Al Hydroxide/Mg Hydroxide (Mylanta Plus Xs) 15 ml PRN AFTMEALHC PRN PO DYSPEPSIA 12/02/20 15:45 Magnesium Hydroxide (Milk Of Magnesia) 2,400 mg PRN QHS PRN PO CONSTIPATION 12/02/20 15:45 12/03/20 16:29 Lisinopril (Prinivil) 10 mg DAILY PO 12/03/20 09:00 01/27/21 08:05 Multivitamins/ Calcium (Thera-M Plus) 1 tab DAILY PO 12/03/20 09:00 01/27/21 08:05 Olanzapine (ZyPREXA ZYDIS) 2.5 mg PRN Q2HRS PRN PO PSYCHOSIS 12/02/20 17:00 01/27/21 19:59 Potassium Chloride (Klor-Con) 20 meq DAILYWBKFT PO 12/04/20 08:00 01/27/21 08:05 Sertraline HCl (Zoloft) 25 mg DAILY PO 12/04/20 09:00 12/06/20 21:00 DC 12/06/20 08:17 Sertraline HCl (Zoloft) 50 mg DAILY PO 12/07/20 09:00 01/27/21 08:05 Quetiapine Fumarate (SEROquel) 12.5 mg 0900 PO 12/09/20 09:00 12/10/20 16:51 DC 12/10/20 09:00 Quetiapine Fumarate (SEROquel) 12.5 mg ONCE ONCE PO 12/08/20 17:15 12/08/20 17:16 DC 12/08/20 17:15 Quetiapine Fumarate (SEROquel) 12.5 mg 1700 PO 12/09/20 18:00 01/02/21 11:54 DC 01/01/21 17:00 Quetiapine Fumarate (SEROquel) 25 mg 0900 PO 12/11/20 09:00 01/27/21 08:05 Divalproex Sodium (Depakote Sprinkles) 125 mg BID PO 12/12/20 21:00 12/13/20 10:16 DC 12/13/20 08:35 Trazodone HCl (Desyrel) 50 mg PRN QHS PRN PO INSOMNIA 12/13/20 00:30 01/26/21 22:16 Divalproex Sodium (Depakote Sprinkles) 125 mg 0900,1700 PO 12/13/20 17:00 12/13/20 17:49 DC 12/13/20 16:35 Valproic Acid (Depakene) 125 mg 0900,1700 PO 12/14/20 09:00 12/17/20 15:35 DC 12/17/20 08:39 Valproic Acid (Depakene) 125 mg [id number] PO 12/17/20 21:00 12/23/20 16:57 DC 12/23/20 14:05 Valproic Acid (Depakene) 125 mg QID PO 12/23/20 17:00 01/02/21 11:54 DC 01/02/21 08:35 Hydroxyzine HCl (Atarax) 10 mg PRN Q2HR PRN PO ITCHING 12/29/20 20:15 01/27/21 17:10 Quetiapine Fumarate (SEROquel) 25 mg 1700 PO 01/02/21 17:00 01/27/21 17:00 Valproic Acid (Depakene) 125 mg 1300,1700 PO 01/02/21 13:00 01/24/21 18:13 DC 01/24/21 16:26 Quetiapine Fumarate (SEROquel) 12.5 mg 1200 PO 01/02/21 12:00 01/27/21 12:24 Valproic Acid (Depakene) 250 mg 0900,2100 PO 01/02/21 21:00 01/24/21 18:13 DC 01/24/21 08:20 Oxycodone/ Acetaminophen (Percocet 7.5/ 325) 1 tab PRN Q6HRS PRN PO MOD-SEV PAIN 01/13/21 16:45 01/21/21 18:29 DC Lidocaine (Lidoderm) 2 patch DAILY TD 01/22/21 09:00 01/26/21 08:10 Miscellaneous (Lidoderm Patch Removal) 1 ea QHS MC 01/22/21 21:00 01/27/21 20:02 Valproic Acid (Depakene) 125 mg 1300,1700,2100 PO 01/24/21 21:00 01/27/21 19:59 Valproic Acid (Depakene) 250 mg 0900 PO 01/25/21 09:00 01/27/21 08:04 I have reviewed the current psychotropics carefully including drug interactions. Risk benefit ratio favors no change other than as noted in my dictated progress note. Diagnosis: Problems: (1) Major neurocognitive disorder (2) Impulse control disorder, unspecified (3) Anxiety disorder, unspecified (4) Dementia, vascular, with depression (5) Dementia, vascular, with delusions (6) Dementia in Alzheimer's disease with depression (7) Dementia in Alzheimer's disease with delusions (8) Dementia of the Alzheimer's type with early onset with behavioral dist EMILY Gardiner MD Jan 27, 2021 21:58
[2021-01-28 06:07] VITALS: BP 116/62
[2021-01-28] MEDS: POTASSIUM CHLORIDE 20 MEQ TABLET.ER. PO SCH ×2 (08:00→08:24)
[2021-01-28] MEDS: QUEtiapine 25 MG TABLET. PO SCH ×3 (08:23→17:16)
[2021-01-28] MEDS: MULTIVITAMIN with MINERAL TABLET. PO SCH ×2 (08:24→08:42)
[2021-01-28] MEDS: VALPROATE ACID 250 MG/5 ML ORAL SOLUTION PO SCH ×4 (08:24→20:34)
[2021-01-28] MEDS: LISINOPRIL 10 MG TABLET PO SCH (08:24)
[2021-01-28] MEDS: SERTRALINE 50 MG TABLET. PO SCH (08:24)
[2021-01-28] MEDS: LIDOCAINE (700MG/PATCH) PATCH. TD SCH (08:40)
[2021-01-28] MEDS: hydrOXYzine HCL 10 MG TABLET PO PRN ×2 (14:47→20:34)
[2021-01-28 15:46] VITALS: BP 99/53
[2021-01-28] MEDS: traZODone 50 MG TABLET. PO PRN (20:34)
[2021-01-28] MEDS: PATCH REMOVAL. MC SCH (20:35)
--- NOTE | 2021-01-28 21:50 | PDOC ---
Exam Note: Earle Note: Please also refer to the separate dictated note~for this date of service dictated separately.~Patient seen individually. Discussed the patient with Nursing staff reviewed the chart.~Reviewed interim history and current functioning. Reviewed vital signs,~Labs/ Radiology~and current medications noted below. Continue current treatment with the changes noted in the dictated addendum note Assessment: Vital Signs/I&O: Vital Signs Date Time Temp Pulse Resp B/P (MAP) Pulse Ox O2 Delivery O2 Flow Rate FiO2 01/28/21 15:46 97.9 101 22 99/53 (68) 97 01/25/21 15:28 Room Air I & O 01/27/21 01/27/21 01/28/21 15:00 23:00 07:00 Intake Total 600 ml 360 ml Balance 600 ml 360 ml Labs: Laboratory Tests Test 01/28/21 05:45 SARS-CoV-2 (PCR) Negative (NEGATIVE) Current Medications: Meds: Laboratory Tests Test 01/28/21 05:45 Coronavirus (COVID-19)(PCR) Negative Current Medications Medications (Trade) Dose Ordered Sig/Brianne Route PRN Reason Start Time Stop Time Status Last Admin Dose Admin Lorazepam (Ativan) 1 mg STK-MED ONCE .ROUTE 12/02/20 14:25 12/02/20 14:25 DC Lorazepam (Ativan) 1 mg 1X ONCE PO 12/02/20 14:30 12/02/20 14:36 DC 12/02/20 14:31 Potassium/ Phosphorus/Sodium (Phos-Nak) 1 pkt 1X ONCE PO 12/02/20 15:00 12/02/20 15:01 Cancel Potassium Bicarbonate (Potassium Effervescent Tablet) 20 meq STK-MED ONCE .ROUTE 12/02/20 14:56 12/02/20 14:57 DC Potassium Bicarbonate (Potassium Effervescent Tablet) 20 meq 1X ONCE PO 12/02/20 15:00 12/02/20 15:01 DC 12/02/20 15:00 Acetaminophen (Tylenol) 650 mg PRN Q6HRS PRN PO MILD PAIN / TEMP > 100.3'F 12/02/20 15:45 01/20/21 19:51 Multi-Ingredient Ointment (Analgesic [place]) 1 itz PRN QID PRN TP MUSCLE PAIN 12/02/20 15:45 Al Hydroxide/Mg Hydroxide (Mylanta Plus Xs) 15 ml PRN AFTMEALHC PRN PO DYSPEPSIA 12/02/20 15:45 Magnesium Hydroxide (Milk Of Magnesia) 2,400 mg PRN QHS PRN PO CONSTIPATION 12/02/20 15:45 12/03/20 16:29 Lisinopril (Prinivil) 10 mg DAILY PO 12/03/20 09:00 01/28/21 08:24 Multivitamins/ Calcium (Thera-M Plus) 1 tab DAILY PO 12/03/20 09:00 01/27/21 08:05 Olanzapine (ZyPREXA ZYDIS) 2.5 mg PRN Q2HRS PRN PO PSYCHOSIS 12/02/20 17:00 01/28/21 14:47 Potassium Chloride (Klor-Con) 20 meq DAILYWBKFT PO 12/04/20 08:00 01/27/21 08:05 Sertraline HCl (Zoloft) 25 mg DAILY PO 12/04/20 09:00 12/06/20 21:00 DC 12/06/20 08:17 Sertraline HCl (Zoloft) 50 mg DAILY PO 12/07/20 09:00 01/28/21 08:24 Quetiapine Fumarate (SEROquel) 12.5 mg 0900 PO 12/09/20 09:00 12/10/20 16:51 DC 12/10/20 09:00 Quetiapine Fumarate (SEROquel) 12.5 mg ONCE ONCE PO 12/08/20 17:15 12/08/20 17:16 DC 12/08/20 17:15 Quetiapine Fumarate (SEROquel) 12.5 mg 1700 PO 12/09/20 18:00 01/02/21 11:54 DC 01/01/21 17:00 Quetiapine Fumarate (SEROquel) 25 mg 0900 PO 12/11/20 09:00 01/28/21 08:23 Divalproex Sodium (Depakote Sprinkles) 125 mg BID PO 12/12/20 21:00 12/13/20 10:16 DC 12/13/20 08:35 Trazodone HCl (Desyrel) 50 mg PRN QHS PRN PO INSOMNIA 12/13/20 00:30 01/28/21 20:34 Divalproex Sodium (Depakote Sprinkles) 125 mg 0900,1700 PO 12/13/20 17:00 12/13/20 17:49 DC 12/13/20 16:35 Valproic Acid (Depakene) 125 mg 0900,1700 PO 12/14/20 09:00 12/17/20 15:35 DC 12/17/20 08:39 Valproic Acid (Depakene) 125 mg [id number] PO 12/17/20 21:00 12/23/20 16:57 DC 12/23/20 14:05 Valproic Acid (Depakene) 125 mg QID PO 12/23/20 17:00 01/02/21 11:54 DC 01/02/21 08:35 Hydroxyzine HCl (Atarax) 10 mg PRN Q2HR PRN PO ITCHING 12/29/20 20:15 01/28/21 20:34 Quetiapine Fumarate (SEROquel) 25 mg 1700 PO 01/02/21 17:00 01/28/21 17:16 Valproic Acid (Depakene) 125 mg 1300,1700 PO 01/02/21 13:00 01/24/21 18:13 DC 01/24/21 16:26 Quetiapine Fumarate (SEROquel) 12.5 mg 1200 PO 01/02/21 12:00 01/28/21 12:22 Valproic Acid (Depakene) 250 mg 0900,2100 PO 01/02/21 21:00 01/24/21 18:13 DC 01/24/21 08:20 Oxycodone/ Acetaminophen (Percocet 7.5/ 325) 1 tab PRN Q6HRS PRN PO MOD-SEV PAIN 01/13/21 16:45 01/21/21 18:29 DC Lidocaine (Lidoderm) 2 patch DAILY TD 01/22/21 09:00 01/28/21 08:40 Miscellaneous (Lidoderm Patch Removal) 1 ea QHS MC 01/22/21 21:00 01/28/21 20:35 Valproic Acid (Depakene) 125 mg 1300,1700,2100 PO 01/24/21 21:00 01/28/21 20:34 Valproic Acid (Depakene) 250 mg 0900 PO 01/25/21 09:00 01/28/21 08:24 I have reviewed the current psychotropics carefully including drug interactions. Risk benefit ratio favors no change other than as noted in my dictated progress note. Diagnosis: Problems: (1) Major neurocognitive disorder (2) Impulse control disorder, unspecified (3) Anxiety disorder, unspecified (4) Dementia, vascular, with depression (5) Dementia, vascular, with delusions (6) Dementia in Alzheimer's disease with depression (7) Dementia in Alzheimer's disease with delusions (8) Dementia of the Alzheimer's type with early onset with behavioral disturbance EMILY CHARLES MD Jan 28, 2021 21:50
[2021-01-29 06:13] VITALS: BP 110/62
--- NOTE | 2021-01-29 06:18 | PDOC ---
Exam Note: Earle Note: This note is a late entry for 01/27/2021overs elements not covered in my initial note. Subjective: The patient was seen face to face in the evening of 01/27/2021 with Erica APPIAH, discussed and reviewed the chart. The patient slept 6-1/4 hours previous night. She remains confused. Review of Systems: Ambulation impaired. She has poor vision. No CV, , pulmonary, ENT system symptoms on review. Mental Status Exam: The patient is oriented to herself. Insight and judgment, recent and remote memory, attention and concentration is poor consistent with her diagnoses. Laboratory Data: Reviewed. Impression: Major neurocognitive disorder Alzheimer vascular with delusion, depression, and behavioral disturbance. Anxiety disorder unspecified. Impulse control disorder unspecified. Plan: No change from initial note. Assessment: Vital Signs/I&O: Vital Signs Date Time Temp Pulse Resp B/P (MAP) Pulse Ox O2 Delivery O2 Flow Rate FiO2 01/29/21 06:13 98.3 71 18 110/62 (78) 96 01/25/21 15:28 Room Air I & O 01/28/21 01/28/21 01/29/21 15:00 23:00 07:00 Intake Total 480 ml 240 ml Balance 480 ml 240 ml Current Medications: Meds: Current Medications Medications (Trade) Dose Ordered Sig/Brianne Route PRN Reason Start Time Stop Time Status Last Admin Dose Admin Lorazepam (Ativan) 1 mg STK-MED ONCE .ROUTE 12/02/20 14:25 12/02/20 14:25 DC Lorazepam (Ativan) 1 mg 1X ONCE PO 12/02/20 14:30 12/02/20 14:36 DC 12/02/20 14:31 Potassium/ Phosphorus/Sodium (Phos-Nak) 1 pkt 1X ONCE PO 12/02/20 15:00 12/02/20 15:01 Cancel Potassium Bicarbonate (Potassium Effervescent Tablet) 20 meq STK-MED ONCE .ROUTE 12/02/20 14:56 12/02/20 14:57 DC Potassium Bicarbonate (Potassium Effervescent Tablet) 20 meq 1X ONCE PO 12/02/20 15:00 12/02/20 15:01 DC 12/02/20 15:00 Acetaminophen (Tylenol) 650 mg PRN Q6HRS PRN PO MILD PAIN / TEMP > 100.3'F 6/14/21 15:45 01/20/21 19:51 Multi-Ingredient Ointment (Analgesic [place]) 1 itz PRN QID PRN TP MUSCLE PAIN 12/02/20 15:45 Al Hydroxide/Mg Hydroxide (Mylanta Plus Xs) 15 ml PRN AFTMEALHC PRN PO DYSPEPSIA 12/02/20 15:45 Magnesium Hydroxide (Milk Of Magnesia) 2,400 mg PRN QHS PRN PO CONSTIPATION 12/02/20 15:45 12/03/20 16:29 Lisinopril (Prinivil) 10 mg DAILY PO 12/03/20 09:00 01/28/21 08:24 Multivitamins/ Calcium (Thera-M Plus) 1 tab DAILY PO 12/03/20 09:00 01/27/21 08:05 Olanzapine (ZyPREXA ZYDIS) 2.5 mg PRN Q2HRS PRN PO PSYCHOSIS 12/02/20 17:00 01/28/21 14:47 Potassium Chloride (Klor-Con) 20 meq DAILYWBKFT PO 12/04/20 08:00 01/27/21 08:05 Sertraline HCl (Zoloft) 25 mg DAILY PO 12/04/20 09:00 12/06/20 21:00 DC 12/06/20 08:17 Sertraline HCl (Zoloft) 50 mg DAILY PO 12/07/20 09:00 01/28/21 08:24 Quetiapine Fumarate (SEROquel) 12.5 mg 0900 PO 12/09/20 09:00 12/10/20 16:51 DC 12/10/20 09:00 Quetiapine Fumarate (SEROquel) 12.5 mg ONCE ONCE PO 12/08/20 17:15 12/08/20 17:16 DC 12/08/20 17:15 Quetiapine Fumarate (SEROquel) 12.5 mg 1700 PO 12/09/20 18:00 01/02/21 11:54 DC 01/01/21 17:00 Quetiapine Fumarate (SEROquel) 25 mg 0900 PO 12/11/20 09:00 01/28/21 08:23 Divalproex Sodium (Depakote Sprinkles) 125 mg BID PO 12/12/20 21:00 12/13/20 10:16 DC 12/13/20 08:35 Trazodone HCl (Desyrel) 50 mg PRN QHS PRN PO INSOMNIA 12/13/20 00:30 01/28/21 20:34 Divalproex Sodium (Depakote Sprinkles) 125 mg 0900,1700 PO 12/13/20 17:00 12/13/20 17:49 DC 12/13/20 16:35 Valproic Acid (Depakene) 125 mg 0900,1700 PO 12/14/20 09:00 12/17/20 15:35 DC 12/17/20 08:39 Valproic Acid (Depakene) 125 mg [id number] PO 12/17/20 21:00 12/23/20 16:57 DC 12/23/20 14:05 Valproic Acid (Depakene) 125 mg QID PO 12/23/20 17:00 01/02/21 11:54 DC 01/02/21 08:35 Hydroxyzine HCl (Atarax) 10 mg PRN Q2HR PRN PO ITCHING 12/29/20 20:15 01/28/21 20:34 Quetiapine Fumarate (SEROquel) 25 mg 1700 PO 01/02/21 17:00 01/28/21 17:16 Valproic Acid (Depakene) 125 mg 1300,1700 PO 01/02/21 13:00 01/24/21 18:13 DC 01/24/21 16:26 Quetiapine Fumarate (SEROquel) 12.5 mg 1200 PO 01/02/21 12:00 01/28/21 12:22 Valproic Acid (Depakene) 250 mg 0900,2100 PO 01/02/21 21:00 01/24/21 18:13 DC 01/24/21 08:20 Oxycodone/ Acetaminophen (Percocet 7.5/ 325) 1 tab PRN Q6HRS PRN PO MOD-SEV PAIN 01/13/21 16:45 01/21/21 18:29 DC Lidocaine (Lidoderm) 2 patch DAILY TD 01/22/21 09:00 01/28/21 08:40 Miscellaneous (Lidoderm Patch Removal) 1 ea QHS MC 01/22/21 21:00 01/28/21 20:35 Valproic Acid (Depakene) 125 mg 1300,1700,2100 PO 01/24/21 21:00 01/28/21 20:34 Valproic Acid (Depakene) 250 mg 0900 PO 01/25/21 09:00 01/28/21 08:24 I have reviewed the current psychotropics carefully including drug interactions. Risk benefit ratio favors no change other than as noted in my dictated progress note. Diagnosis: Problems: (1) Major neurocognitive disorder (2) Impulse control disorder, unspecified (3) Anxiety disorder, unspecified (4) Dementia, vascular, with depression (5) Dementia, vascular, with delusions (6) Dementia in Alzheimer's disease with depression (7) Dementia in Alzheimer's disease with delusions (8) Dementia of the Alzheimer's type with early onset with behavioral disturbance EMILY CHARLES MD Jan 29, 2021 06:17
--- NOTE | 2021-01-29 06:30 | PDOC ---
Exam Note: Earle Note: This note is a late entry for 01/28/2021overs elements not covered in my initial note. Subjective: The patient was seen face to face in the evening of 01/28/2021 with Kiki APPIAH, discussed and reviewed the chart. The patient slept 6-1/2 hours previous night. She has been pacing, anxious. Received Zyprexa and Atarax p.r.n. at 2.45 p.m. We have met with her in the [facility]. Review of Systems: Ambulation impaired. No CV, , pulmonary, ENT system symptoms on review. Poor vision. Mental Status Exam: The patient is oriented to herself. Insight and judgment, recent and remote memory, attention and concentration is poor consistent with her diagnoses. Laboratory Data: Reviewed. Impression: Major neurocognitive disorder Alzheimer vascular with delusion, depression, and behavioral disturbance. Anxiety disorder unspecified. Impulse control disorder unspecified. Plan: No change from initial note. Assessment: Vital Signs/I&O: Vital Signs Date Time Temp Pulse Resp B/P (MAP) Pulse Ox O2 Delivery O2 Flow Rate FiO2 01/29/21 06:13 98.3 71 18 110/62 (78) 96 01/25/21 15:28 Room Air I & O 01/28/21 01/28/21 01/29/21 15:00 23:00 07:00 Intake Total 480 ml 240 ml Balance 480 ml 240 ml Current Medications: Meds: Current Medications Medications (Trade) Dose Ordered Sig/Brianne Route PRN Reason Start Time Stop Time Status Last Admin Dose Admin Lorazepam (Ativan) 1 mg STK-MED ONCE .ROUTE 12/02/20 14:25 12/02/20 14:25 DC Lorazepam (Ativan) 1 mg 1X ONCE PO 12/02/20 14:30 12/02/20 14:36 DC 12/02/20 14:31 Potassium/ Phosphorus/Sodium (Phos-Nak) 1 pkt 1X ONCE PO 12/02/20 15:00 12/02/20 15:01 Cancel Potassium Bicarbonate (Potassium Effervescent Tablet) 20 meq STK-MED ONCE .ROUTE 12/02/20 14:56 12/02/20 14:57 DC Potassium Bicarbonate (Potassium Effervescent Tablet) 20 meq 1X ONCE PO 12/02/20 15:00 12/02/20 15:01 DC 12/02/20 15:00 Acetaminophen (Tylenol) 650 mg PRN Q6HRS PRN PO MILD PAIN / TEMP > 100.3'F 12/02/20 15:45 01/20/21 19:51 Multi-Ingredient Ointment (Analgesic [place]) 1 itz PRN QID PRN TP MUSCLE PAIN 12/02/20 15:45 Al Hydroxide/Mg Hydroxide (Mylanta Plus Xs) 15 ml PRN AFTMEALHC PRN PO DYSPEPSIA 12/02/20 15:45 Magnesium Hydroxide (Milk Of Magnesia) 2,400 mg PRN QHS PRN PO CONSTIPATION 12/02/20 15:45 12/03/20 16:29 Lisinopril (Prinivil) 10 mg DAILY PO 12/03/20 09:00 01/28/21 08:24 Multivitamins/ Calcium (Thera-M Plus) 1 tab DAILY PO 12/03/20 09:00 01/27/21 08:05 Olanzapine (ZyPREXA ZYDIS) 2.5 mg PRN Q2HRS PRN PO PSYCHOSIS 12/02/20 17:00 01/28/21 14:47 Potassium Chloride (Klor-Con) 20 meq DAILYWBKFT PO 12/04/20 08:00 01/27/21 08:05 Sertraline HCl (Zoloft) 25 mg DAILY PO 12/04/20 09:00 12/06/20 21:00 DC 12/06/20 08:17 Sertraline HCl (Zoloft) 50 mg DAILY PO 12/07/20 09:00 01/28/21 08:24 Quetiapine Fumarate (SEROquel) 12.5 mg 0900 PO 12/09/20 09:00 12/10/20 16:51 DC 12/10/20 09:00 Quetiapine Fumarate (SEROquel) 12.5 mg ONCE ONCE PO 12/08/20 17:15 12/08/20 17:16 DC 12/08/20 17:15 Quetiapine Fumarate (SEROquel) 12.5 mg 1700 PO 12/09/20 18:00 01/02/21 11:54 DC 01/01/21 17:00 Quetiapine Fumarate (SEROquel) 25 mg 0900 PO 12/11/20 09:00 01/28/21 08:23 Divalproex Sodium (Depakote Sprinkles) 125 mg BID PO 12/12/20 21:00 12/13/20 10:16 DC 12/13/20 08:35 Trazodone HCl (Desyrel) 50 mg PRN QHS PRN PO INSOMNIA 12/13/20 00:30 01/28/21 20:34 Divalproex Sodium (Depakote Sprinkles) 125 mg 0900,1700 PO 12/13/20 17:00 12/13/20 17:49 DC 12/13/20 16:35 Valproic Acid (Depakene) 125 mg 0900,1700 PO 12/14/20 09:00 12/17/20 15:35 DC 12/17/20 08:39 Valproic Acid (Depakene) 125 mg [id number] PO 12/17/20 21:00 12/23/20 16:57 DC 12/23/20 14:05 Valproic Acid (Depakene) 125 mg QID PO 12/23/20 17:00 01/02/21 11:54 DC 01/02/21 08:35 Hydroxyzine HCl (Atarax) 10 mg PRN Q2HR PRN PO ITCHING 12/29/20 20:15 01/28/21 20:34 Quetiapine Fumarate (SEROquel) 25 mg 1700 PO 01/02/21 17:00 01/28/21 17:16 Valproic Acid (Depakene) 125 mg 1300,1700 PO 01/02/21 13:00 01/24/21 18:13 DC 01/24/21 16:26 Quetiapine Fumarate (SEROquel) 12.5 mg 1200 PO 01/02/21 12:00 01/28/21 12:22 Valproic Acid (Depakene) 250 mg 0900,2100 PO 01/02/21 21:00 01/24/21 18:13 DC 01/24/21 08:20 Oxycodone/ Acetaminophen (Percocet 7.5/ 325) 1 tab PRN Q6HRS PRN PO MOD-SEV PAIN 01/13/21 16:45 01/21/21 18:29 DC Lidocaine (Lidoderm) 2 patch DAILY TD 01/22/21 09:00 01/28/21 08:40 Miscellaneous (Lidoderm Patch Removal) 1 ea QHS MC 01/22/21 21:00 01/28/21 20:35 Valproic Acid (Depakene) 125 mg 1300,1700,2100 PO 01/24/21 21:00 01/28/21 20:34 Valproic Acid (Depakene) 250 mg 0900 PO 01/25/21 09:00 01/28/21 08:24 I have reviewed the current psychotropics carefully including drug interactions. Risk benefit ratio favors no change other than as noted in my dictated progress note. Diagnosis: Problems: (1) Major neurocognitive disorder (2) Impulse control disorder, unspecified (3) Anxiety disorder, unspecified (4) Dementia, vascular, with depression (5) Dementia, vascular, with delusions (6) Dementia in Alzheimer's disease with depression (7) Dementia in Alzheimer's disease with delusions (8) Dementia of the Alzheimer's type with early onset with behavioral disturbance EMILY CHARLES MD Jan 29, 2021 06:30
[2021-01-29] MEDS: VALPROATE ACID 250 MG/5 ML ORAL SOLUTION PO SCH ×4 (08:13→20:01)
[2021-01-29] MEDS: LIDOCAINE (700MG/PATCH) PATCH. TD SCH (08:13)
[2021-01-29] MEDS: LISINOPRIL 10 MG TABLET PO SCH (08:14)
[2021-01-29] MEDS: SERTRALINE 50 MG TABLET. PO SCH (08:14)
[2021-01-29] MEDS: MULTIVITAMIN with MINERAL TABLET. PO SCH (08:14)
[2021-01-29] MEDS: POTASSIUM CHLORIDE 20 MEQ TABLET.ER. PO SCH (08:14)
[2021-01-29] MEDS: QUEtiapine 25 MG TABLET. PO SCH ×3 (08:15→17:13)
[2021-01-29 15:38] VITALS: BP 116/69
[2021-01-29] MEDS: traZODone 50 MG TABLET. PO PRN (20:01)
[2021-01-29] MEDS: hydrOXYzine HCL 10 MG TABLET PO PRN (20:02)
[2021-01-29] MEDS: PATCH REMOVAL. MC SCH (20:02)
--- NOTE | 2021-01-29 22:00 | PDOC ---
Exam Note: Earle Note: Please also refer to the separate dictated note~for this date of service dictated separately.~Patient seen individually. Discussed the patient with Nursing staff reviewed the chart.~Reviewed interim history and current functioning. Reviewed vital signs,~Labs/ Radiology~and current medications noted below. Continue current treatment with the changes noted in the dictated addendum note Assessment: Vital Signs/I&O: Vital Signs Date Time Temp Pulse Resp B/P (MAP) Pulse Ox O2 Delivery O2 Flow Rate FiO2 01/29/21 15:38 97.5 100 20 116/69 (85) 94 01/25/21 15:28 Room Air I & O 01/28/21 01/28/21 01/29/21 15:00 23:00 07:00 Intake Total 480 ml 240 ml Balance 480 ml 240 ml Current Medications: Meds: Current Medications Medications (Trade) Dose Ordered Sig/Brianne Route PRN Reason Start Time Stop Time Status Last Admin Dose Admin Lorazepam (Ativan) 1 mg STK-MED ONCE .ROUTE 12/02/20 14:25 12/02/20 14:25 DC Lorazepam (Ativan) 1 mg 1X ONCE PO 12/02/20 14:30 12/02/20 14:36 DC 12/02/20 14:31 Potassium/ Phosphorus/Sodium (Phos-Nak) 1 pkt 1X ONCE PO 12/02/20 15:00 12/02/20 15:01 Cancel Potassium Bicarbonate (Potassium Effervescent Tablet) 20 meq STK-MED ONCE .ROUTE 12/02/20 14:56 12/02/20 14:57 DC Potassium Bicarbonate (Potassium Effervescent Tablet) 20 meq 1X ONCE PO 12/02/20 15:00 12/02/20 15:01 DC 12/02/20 15:00 Acetaminophen (Tylenol) 650 mg PRN Q6HRS PRN PO MILD PAIN / TEMP > 100.3'F 12/02/20 15:45 01/20/21 19:51 Multi-Ingredient Ointment (Analgesic [place]) 1 itz PRN QID PRN TP MUSCLE PAIN 12/02/20 15:45 Al Hydroxide/Mg Hydroxide (Mylanta Plus Xs) 15 ml PRN AFTMEALHC PRN PO DYSPEPSIA 12/02/20 15:45 Magnesium Hydroxide (Milk Of Magnesia) 2,400 mg PRN QHS PRN PO CONSTIPATION 12/02/20 15:45 12/03/20 16:29 Lisinopril (Prinivil) 10 mg DAILY PO 12/03/20 09:00 01/29/21 08:14 Multivitamins/ Calcium (Thera-M Plus) 1 tab DAILY PO 12/03/20 09:00 01/29/21 08:14 Olanzapine (ZyPREXA ZYDIS) 2.5 mg PRN Q2HRS PRN PO PSYCHOSIS 12/02/20 17:00 01/28/21 14:47 Potassium Chloride (Klor-Con) 20 meq DAILYWBKFT PO 12/04/20 08:00 01/29/21 08:14 Sertraline HCl (Zoloft) 25 mg DAILY PO 12/04/20 09:00 12/06/20 21:00 DC 12/06/20 08:17 Sertraline HCl (Zoloft) 50 mg DAILY PO 12/07/20 09:00 01/29/21 08:14 Quetiapine Fumarate (SEROquel) 12.5 mg 0900 PO 12/09/20 09:00 12/10/20 16:51 DC 12/10/20 09:00 Quetiapine Fumarate (SEROquel) 12.5 mg ONCE ONCE PO 12/08/20 17:15 12/08/20 17:16 DC 12/08/20 17:15 Quetiapine Fumarate (SEROquel) 12.5 mg 1700 PO 12/09/20 18:00 01/02/21 11:54 DC 01/01/21 17:00 Quetiapine Fumarate (SEROquel) 25 mg 0900 PO 12/11/20 09:00 01/29/21 08:15 Divalproex Sodium (Depakote Sprinkles) 125 mg BID PO 12/12/20 21:00 12/13/20 10:16 DC 12/13/20 08:35 Trazodone HCl (Desyrel) 50 mg PRN QHS PRN PO INSOMNIA 12/13/20 00:30 01/29/21 20:01 Divalproex Sodium (Depakote Sprinkles) 125 mg 0900,1700 PO 12/13/20 17:00 12/13/20 17:49 DC 12/13/20 16:35 Valproic Acid (Depakene) 125 mg 0900,1700 PO 12/14/20 09:00 12/17/20 15:35 DC 12/17/20 08:39 Valproic Acid (Depakene) 125 mg [id number] PO 12/17/20 21:00 12/23/20 16:57 DC 12/23/20 14:05 Valproic Acid (Depakene) 125 mg QID PO 12/23/20 17:00 01/02/21 11:54 DC 01/02/21 08:35 Hydroxyzine HCl (Atarax) 10 mg PRN Q2HR PRN PO ITCHING 12/29/20 20:15 01/29/21 20:02 Quetiapine Fumarate (SEROquel) 25 mg 1700 PO 01/02/21 17:00 01/29/21 17:13 Valproic Acid (Depakene) 125 mg 1300,1700 PO 01/02/21 13:00 01/24/21 18:13 DC 01/24/21 16:26 Quetiapine Fumarate (SEROquel) 12.5 mg 1200 PO 01/02/21 12:00 01/29/21 12:10 Valproic Acid (Depakene) 250 mg 0900,2100 PO 01/02/21 21:00 01/24/21 18:13 DC 01/24/21 08:20 Oxycodone/ Acetaminophen (Percocet 7.5/ 325) 1 tab PRN Q6HRS PRN PO MOD-SEV PAIN 01/13/21 16:45 01/21/21 18:29 DC Lidocaine (Lidoderm) 2 patch DAILY TD 01/22/21 09:00 01/29/21 08:13 Miscellaneous (Lidoderm Patch Removal) 1 ea QHS MC 01/22/21 21:00 01/29/21 20:02 Valproic Acid (Depakene) 125 mg 1300,1700,2100 PO 01/24/21 21:00 01/29/21 20:01 Valproic Acid (Depakene) 250 mg 0900 PO 01/25/21 09:00 01/29/21 08:13 I have reviewed the current psychotropics carefully including drug interactions. Risk benefit ratio favors no change other than as noted in my dictated progress note. Diagnosis: Problems: (1) Major neurocognitive disorder (2) Impulse control disorder, unspecified (3) Anxiety disorder, unspecified (4) Dementia, vascular, with depression (5) Dementia, vascular, with delusions (6) Dementia in Alzheimer's disease with depression (7) Dementia in Alzheimer's disease with delusions (8) Dementia of the Alzheimer's type with early onset with behavioral disturbance EMILY CHARLES MD Jan 29, 2021 22:00
[2021-01-29] MEDS ORDERED: VALP250S3 PO ×2 (22:44→22:46)
[2021-01-29] MEDS ORDERED: SERT50TA PO (22:47)
[2021-01-29] MEDS ORDERED: TRAZ-120 PO (22:48)
[2021-01-29] MEDS ORDERED: QUET25TA5 PO ×2 (22:50→22:51)
[2021-01-29] MEDS ORDERED: OLAN5TAB67 PO (22:52)
[2021-01-29] MEDS ORDERED: HYDR10TA2 PO (22:53)
[2021-01-29] MEDS ORDERED: POTA20TA4 PO (22:54)
[2021-01-29] MEDS ORDERED: LIDO700A21 TP (22:55)
[2021-01-29] MEDS ORDERED: ACET325T21 PO (22:59)
[2021-01-29] MEDS ORDERED: METH57CR17 TP (23:00)
[2021-01-29] MEDS ORDERED: MAGN24003 PO (23:02)
[2021-01-29] MEDS ORDERED: MAG355OR11 PO (23:04)
[2021-01-30 06:34] VITALS: BP 102/65
[2021-01-30] MEDS: MULTIVITAMIN with MINERAL TABLET. PO SCH (08:33)
[2021-01-30] MEDS: QUEtiapine 25 MG TABLET. PO SCH ×3 (08:33→17:56)
[2021-01-30] MEDS: SERTRALINE 50 MG TABLET. PO SCH (08:33)
[2021-01-30] MEDS: POTASSIUM CHLORIDE 20 MEQ TABLET.ER. PO SCH (08:34)
[2021-01-30] MEDS: LISINOPRIL 10 MG TABLET PO SCH (08:34)
[2021-01-30] MEDS: LIDOCAINE (700MG/PATCH) PATCH. TD SCH (08:35)
[2021-01-30] MEDS: VALPROATE ACID 250 MG/5 ML ORAL SOLUTION PO SCH ×4 (08:35→21:00)
--- NOTE | 2021-01-30 10:18 | TX PLAN ---
Interdisciplinary Tx Plan Admission Information Dec 02, 2020 at 15:25 Legal Status (on Admission): Voluntary DPOA/Guardian Name: Aron Razo Contact Other Contact Name: [facility] Other Contact Verified Code Status: DNR Allergies: Coded Allergies: No Known Drug Allergies (Unverified , 12/02/20) Diagnoses Primary Diagnosis: Major Neurocognitive D/O, Vascular Alzheimers with delusions and depression Reasons for Admission: Aggressive, Sig. Change Sleep, Combative, Confusion/Disoriented, Poor impulse control, Other Problem in Patient's Words: She has declined pretty quickly in the last 3 months. Additional Admission Comments: According to the intake, pt was biting, hitting staff at LT, throwing things, agitated, restless, wandering, attempts to elope, poor sleep, poor intake, throwing cups of water on LTC staff, attempted to elope out of the back door of [facility] ED during medical clearance. Problems Active Problems: restless wandering increased confusion Inactive Problems: medication compliance Pt Strengths/Limitations Ability for [place]: Poor Cognitive Functioning/Ability: Poor Communication Skills/Ability: Poor Financial Resources: Good Insight/Judgement: Poor Intellectual Ability: Poor Physical Health: Fair Social Skills: Fair Stability in Family: Good Stability in School/Work: Poor Verbal Skills: Poor Discharge Criteria Discharge Criteria: No need for close observ., Adequate arrangements @DC, Improved behavior, Improved mood/thought Preliminary Discharge Plan Preliminary DC Plan: Current Living Arrange. Initial D/C Plan Unknown at this time Identified Discharge Needs: Pt may bring pt home; unknown at this time. Currently Utilized Resources Currently Utilized Resources/P: Primary Care Physician Identified Problems/Hx/Goals Objectives/Short-Term Goals Short Term Goals: Dec. Aggression, Dec. Outbursts, Medication Stabilization, Monitor Med Effects, Promote Coping Skill Short Term Goals in Patient's: N/A Interventions/Frequency Staff Interventions/Frequency&: Psychiatrist to assess pt at least 3x per week for medication management. Social [facility]ok to assess pt at least 2x per week to identify barriers to care and discharge planning. Nursing to assess medication effects, behavior modification and complete 15 minute checks. 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 Education: Pt did graduate high school (12th grade); attended [employer] in [place] with her B.A. in Swedish degree. Community Follow-up Primary Care Physician Mental Health Services Treatment Plan Explained Patient/Medical Insurance Biller had this treatment plan explained to him/her as indicated by the signature below and has been given the opportunity to ask questions and make suggestions: Date: Patient/Medical Insurance Biller Signature: Status Update Update Pt Aron participated in treatment team via phone. Pt is eating roughly 50% of meals and sleeping on average 7.5 hours per night. Pt is appropriate with no physical aggression noted; put is pacing up and down the hallways; but not exit seeking. Pt continues to be confused and disorganized and is compliant with medications dissolved in a spoonful of Sprite. Pt continues to participate in groups this week with moderate participation and has pleasant interactions. Pt Covid test is negative; however, with a pt potentially have a positive test, [facility] will not accept pt for another 10 days. DANIELA for 02/10. HEDY BARRON Jan 30, 2021 10:18
[2021-01-30 15:50] VITALS: BP 137/80
[2021-01-30] MEDS: PATCH REMOVAL. MC SCH (21:00)
--- NOTE | 2021-01-30 21:57 | PDOC ---
Exam Note: Earle Note: Please also refer to the separate dictated note~for this date of service dictated separately.~Patient seen individually. Discussed the patient with Nursing staff reviewed the chart.~Reviewed interim history and current functioning. Reviewed vital signs,~Labs/ Radiology~and current medications noted below. Continue current treatment with the changes noted in the dictated addendum note Assessment: Vital Signs/I&O: Vital Signs Date Time Temp Pulse Resp B/P (MAP) Pulse Ox O2 Delivery O2 Flow Rate FiO2 01/30/21 15:50 97.9 95 16 137/80 (99) 95 01/25/21 15:28 Room Air I & O 01/29/21 01/29/21 01/30/21 15:00 23:00 07:00 Intake Total 360 ml 360 ml Balance 360 ml 360 ml Current Medications: Meds: Current Medications Medications (Trade) Dose Ordered Sig/Brianne Route PRN Reason Start Time Stop Time Status Last Admin Dose Admin Lorazepam (Ativan) 1 mg STK-MED ONCE .ROUTE 12/02/20 14:25 12/02/20 14:25 DC Lorazepam (Ativan) 1 mg 1X ONCE PO 12/02/20 14:30 12/02/20 14:36 DC 12/02/20 14:31 Potassium/ Phosphorus/Sodium (Phos-Nak) 1 pkt 1X ONCE PO 12/02/20 15:00 12/02/20 15:01 Cancel Potassium Bicarbonate (Potassium Effervescent Tablet) 20 meq STK-MED ONCE .ROUTE 12/02/20 14:56 12/02/20 14:57 DC Potassium Bicarbonate (Potassium Effervescent Tablet) 20 meq 1X ONCE PO 12/02/20 15:00 12/02/20 15:01 DC 12/02/20 15:00 Acetaminophen (Tylenol) 650 mg PRN Q6HRS PRN PO MILD PAIN / TEMP > 100.3'F 12/02/20 15:45 01/20/21 19:51 Multi-Ingredient Ointment (Analgesic [place]) 1 itz PRN QID PRN TP MUSCLE PAIN 12/02/20 15:45 Al Hydroxide/Mg Hydroxide (Mylanta Plus Xs) 15 ml PRN AFTMEALHC PRN PO DYSPEPSIA 12/02/20 15:45 Magnesium Hydroxide (Milk Of Magnesia) 2,400 mg PRN QHS PRN PO CONSTIPATION 12/02/20 15:45 12/03/20 16:29 Lisinopril (Prinivil) 10 mg DAILY PO 12/03/20 09:00 01/30/21 08:34 Multivitamins/ Calcium (Thera-M Plus) 1 tab DAILY PO 12/03/20 09:00 01/30/21 08:33 Olanzapine (ZyPREXA ZYDIS) 2.5 mg PRN Q2HRS PRN PO PSYCHOSIS 12/02/20 17:00 01/28/21 14:47 Potassium Chloride (Klor-Con) 20 meq DAILYWBKFT PO 12/04/20 08:00 01/30/21 08:34 Sertraline HCl (Zoloft) 25 mg DAILY PO 12/04/20 09:00 12/06/20 21:00 DC 12/06/20 08:17 Sertraline HCl (Zoloft) 50 mg DAILY PO 12/07/20 09:00 01/30/21 08:33 Quetiapine Fumarate (SEROquel) 12.5 mg 0900 PO 12/09/20 09:00 12/10/20 16:51 DC 12/10/20 09:00 Quetiapine Fumarate (SEROquel) 12.5 mg ONCE ONCE PO 12/08/20 17:15 12/08/20 17:16 DC 12/08/20 17:15 Quetiapine Fumarate (SEROquel) 12.5 mg 1700 PO 12/09/20 18:00 01/02/21 11:54 DC 01/01/21 17:00 Quetiapine Fumarate (SEROquel) 25 mg 0900 PO 12/11/20 09:00 01/30/21 08:33 Divalproex Sodium (Depakote Sprinkles) 125 mg BID PO 12/12/20 21:00 12/13/20 10:16 DC 12/13/20 08:35 Trazodone HCl (Desyrel) 50 mg PRN QHS PRN PO INSOMNIA 12/13/20 00:30 01/29/21 20:01 Divalproex Sodium (Depakote Sprinkles) 125 mg 0900,1700 PO 12/13/20 17:00 12/13/20 17:49 DC 12/13/20 16:35 Valproic Acid (Depakene) 125 mg 0900,1700 PO 12/14/20 09:00 12/17/20 15:35 DC 12/17/20 08:39 Valproic Acid (Depakene) 125 mg [id number] PO 12/17/20 21:00 12/23/20 16:57 DC 12/23/20 14:05 Valproic Acid (Depakene) 125 mg QID PO 12/23/20 17:00 01/02/21 11:54 DC 01/02/21 08:35 Hydroxyzine HCl (Atarax) 10 mg PRN Q2HR PRN PO ITCHING 12/29/20 20:15 01/29/21 20:02 Quetiapine Fumarate (SEROquel) 25 mg 1700 PO 01/02/21 17:00 01/30/21 17:56 Valproic Acid (Depakene) 125 mg 1300,1700 PO 01/02/21 13:00 01/24/21 18:13 DC 01/24/21 16:26 Quetiapine Fumarate (SEROquel) 12.5 mg 1200 PO 01/02/21 12:00 01/30/21 13:23 Valproic Acid (Depakene) 250 mg 0900,2100 PO 01/02/21 21:00 01/24/21 18:13 DC 01/24/21 08:20 Oxycodone/ Acetaminophen (Percocet 7.5/ 325) 1 tab PRN Q6HRS PRN PO MOD-SEV PAIN 01/13/21 16:45 01/21/21 18:29 DC Lidocaine (Lidoderm) 2 patch DAILY TD 01/22/21 09:00 01/30/21 08:35 Miscellaneous (Lidoderm Patch Removal) 1 ea QHS MC 01/22/21 21:00 01/29/21 20:02 Valproic Acid (Depakene) 125 mg 1300,1700,2100 PO 01/24/21 21:00 01/30/21 17:56 Valproic Acid (Depakene) 250 mg 0900 PO 01/25/21 09:00 01/30/21 08:35 I have reviewed the current psychotropics carefully including drug interactions. Risk benefit ratio favors no change other than as noted in my dictated progress note. Diagnosis: Problems: (1) Major neurocognitive disorder (2) Impulse control disorder, unspecified (3) Anxiety disorder, unspecified (4) Dementia, vascular, with depression (5) Dementia, vascular, with delusions (6) Dementia in Alzheimer's disease with depression (7) Dementia in Alzheimer's disease with delusions (8) Dementia of the Alzheimer's type with early onset with behavioral disturbance EMILY CHARLES MD Jan 30, 2021 21:57
[2021-01-31 06:17] VITALS: BP 107/88
--- NOTE | 2021-01-31 06:18 | PDOC ---
Exam Note: Earle Note: This note is a late entry for 01/29/2021overs elements not covered in my initial note. Subjective: The patient was seen face to face in the evening of 01/29/2021 with Kiki APPIAH, discussed and reviewed the chart. The patient slept 7-1/4 hours previous night. She is confused, wandering the hallways, not agitated or aggressive. Review of Systems: Ambulation impaired. No CV, , pulmonary, ENT system symptoms on review. Poor vision. Mental Status Exam: The patient is oriented to herself. Insight and judgment, recent and remote memory, attention and concentration is poor consistent with her diagnoses. Laboratory Data: Reviewed. Impression: Major neurocognitive disorder Alzheimer vascular with delusion, depression, and behavioral disturbance. Anxiety disorder unspecified. Impulse control disorder unspecified. Plan: No change from initial note. Assessment: Vital Signs/I&O: Vital Signs Date Time Temp Pulse Resp B/P (MAP) Pulse Ox O2 Delivery O2 Flow Rate FiO2 01/31/21 06:17 96.8 75 18 107/88 (94) 98 01/25/21 15:28 Room Air I & O 01/30/21 01/30/21 01/31/21 15:00 23:00 07:00 Intake Total 720 ml Balance 720 ml Current Medications: Meds: Current Medications Medications (Trade) Dose Ordered Sig/Brianne Route PRN Reason Start Time Stop Time Status Last Admin Dose Admin Lorazepam (Ativan) 1 mg STK-MED ONCE .ROUTE 12/02/20 14:25 12/02/20 14:25 DC Lorazepam (Ativan) 1 mg 1X ONCE PO 12/02/20 14:30 12/02/20 14:36 DC 12/02/20 14:31 Potassium/ Phosphorus/Sodium (Phos-Nak) 1 pkt 1X ONCE PO 12/02/20 15:00 12/02/20 15:01 Cancel Potassium Bicarbonate (Potassium Effervescent Tablet) 20 meq STK-MED ONCE .ROUTE 12/02/20 14:56 12/02/20 14:57 DC Potassium Bicarbonate (Potassium Effervescent Tablet) 20 meq 1X ONCE PO 12/02/20 15:00 12/02/20 15:01 DC 12/02/20 15:00 Acetaminophen (Tylenol) 650 mg PRN Q6HRS PRN PO MILD PAIN / TEMP > 100.3'F 12/02/20 15:45 01/20/21 19:51 Multi-Ingredient Ointment (Analgesic [place]) 1 itz PRN QID PRN TP MUSCLE PAIN 12/02/20 15:45 Al Hydroxide/Mg Hydroxide (Mylanta Plus Xs) 15 ml PRN AFTMEALHC PRN PO DYSPEPSIA 12/02/20 15:45 Magnesium Hydroxide (Milk Of Magnesia) 2,400 mg PRN QHS PRN PO CONSTIPATION 12/02/20 15:45 12/03/20 16:29 Lisinopril (Prinivil) 10 mg DAILY PO 12/03/20 09:00 01/30/21 08:34 Multivitamins/ Calcium (Thera-M Plus) 1 tab DAILY PO 12/03/20 09:00 01/30/21 08:33 Olanzapine (ZyPREXA ZYDIS) 2.5 mg PRN Q2HRS PRN PO PSYCHOSIS 12/02/20 17:00 01/28/21 14:47 Potassium Chloride (Klor-Con) 20 meq DAILYWBKFT PO 12/04/20 08:00 01/30/21 08:34 Sertraline HCl (Zoloft) 25 mg DAILY PO 12/04/20 09:00 12/06/20 21:00 DC 12/06/20 08:17 Sertraline HCl (Zoloft) 50 mg DAILY PO 12/07/20 09:00 01/30/21 08:33 Quetiapine Fumarate (SEROquel) 12.5 mg 0900 PO 12/09/20 09:00 12/10/20 16:51 DC 12/10/20 09:00 Quetiapine Fumarate (SEROquel) 12.5 mg ONCE ONCE PO 12/08/20 17:15 12/08/20 17:16 DC 12/08/20 17:15 Quetiapine Fumarate (SEROquel) 12.5 mg 1700 PO 12/09/20 18:00 01/02/21 11:54 DC 01/01/21 17:00 Quetiapine Fumarate (SEROquel) 25 mg 0900 PO 12/11/20 09:00 01/30/21 08:33 Divalproex Sodium (Depakote Sprinkles) 125 mg BID PO 12/12/20 21:00 12/13/20 10:16 DC 12/13/20 08:35 Trazodone HCl (Desyrel) 50 mg PRN QHS PRN PO INSOMNIA 12/13/20 00:30 01/29/21 20:01 Divalproex Sodium (Depakote Sprinkles) 125 mg 0900,1700 PO 12/13/20 17:00 12/13/20 17:49 DC 12/13/20 16:35 Valproic Acid (Depakene) 125 mg 0900,1700 PO 12/14/20 09:00 12/17/20 15:35 DC 12/17/20 08:39 Valproic Acid (Depakene) 125 mg [id number] PO 12/17/20 21:00 12/23/20 16:57 DC 12/23/20 14:05 Valproic Acid (Depakene) 125 mg QID PO 12/23/20 17:00 01/02/21 11:54 DC 01/02/21 08:35 Hydroxyzine HCl (Atarax) 10 mg PRN Q2HR PRN PO ITCHING 12/29/20 20:15 01/29/21 20:02 Quetiapine Fumarate (SEROquel) 25 mg 1700 PO 01/02/21 17:00 01/30/21 17:56 Valproic Acid (Depakene) 125 mg 1300,1700 PO 01/02/21 13:00 01/24/21 18:13 DC 01/24/21 16:26 Quetiapine Fumarate (SEROquel) 12.5 mg 1200 PO 01/02/21 12:00 01/30/21 13:23 Valproic Acid (Depakene) 250 mg 0900,2100 PO 01/02/21 21:00 01/24/21 18:13 DC 01/24/21 08:20 Oxycodone/ Acetaminophen (Percocet 7.5/ 325) 1 tab PRN Q6HRS PRN PO MOD-SEV PAIN 01/13/21 16:45 01/21/21 18:29 DC Lidocaine (Lidoderm) 2 patch DAILY TD 01/22/21 09:00 01/30/21 08:35 Miscellaneous (Lidoderm Patch Removal) 1 ea QHS MC 8/4/21 21:00 01/29/21 20:02 Valproic Acid (Depakene) 125 mg 1300,1700,2100 PO 01/24/21 21:00 01/30/21 17:56 Valproic Acid (Depakene) 250 mg 0900 PO 01/25/21 09:00 01/30/21 08:35 I have reviewed the current psychotropics carefully including drug interactions. Risk benefit ratio favors no change other than as noted in my dictated progress note. Diagnosis: Problems: (1) Major neurocognitive disorder (2) Impulse control disorder, unspecified (3) Anxiety disorder, unspecified (4) Dementia, vascular, with depression (5) Dementia, vascular, with delusions (6) Dementia in Alzheimer's disease with depression (7) Dementia in Alzheimer's disease with delusions (8) Dementia of the Alzheimer's type with early onset with behavioral disturbance EMILY CHARLES MD Jan 31, 2021 06:18
--- NOTE | 2021-01-31 06:31 | PDOC ---
Exam Note: Earle Note: This note is a late entry for 01/30/2021overs elements not covered in my initial note. Subjective: The patient was reviewed at treatment team meeting individually in the morning on 01/30/2021 with Maryana Rice, Cathy Hargrove (social sciences chair), Elizabeth, activity therapy and Chuck APPIAH, discussed and reviewed the chart. The patient slept 8 hours previous night. The patients Aron attended the treatment team meeting. Appetite 50%. She attended 5 groups in the past one week and she was dancing in one of the groups and blowing bubbles for activity in another group. She is not being accepted at a tentative skilled nursing till Wednesday02/10/2021 because of COVID on our unit and [facility] social service staff is facilitating discharge plans. Review of Systems: Ambulation impaired. No CV, , pulmonary, ENT system symptoms on review. Mental Status Exam: The patient is oriented to herself. Insight and judgment, recent and remote memory, attention and concentration is poor consistent with her diagnoses. Laboratory Data: Reviewed. Impression: Major neurocognitive disorder Alzheimer vascular with delusion, depression, and behavioral disturbance. Anxiety disorder unspecified. Impulse control disorder unspecified. Plan: No change from initial note. Assessment: Vital Signs/I&O: Vital Signs Date Time Temp Pulse Resp B/P (MAP) Pulse Ox O2 Delivery O2 Flow Rate FiO2 01/31/21 06:17 96.8 75 18 107/88 (94) 98 01/25/21 15:28 Room Air I & O 01/30/21 01/30/21 01/31/21 15:00 23:00 07:00 Intake Total 720 ml Balance 720 ml Current Medications: Meds: Current Medications Medications (Trade) Dose Ordered Sig/Brianne Route PRN Reason Start Time Stop Time Status Last Admin Dose Admin Lorazepam (Ativan) 1 mg STK-MED ONCE .ROUTE 12/02/20 14:25 12/02/20 14:25 DC Lorazepam (Ativan) 1 mg 1X ONCE PO 12/02/20 14:30 12/02/20 14:36 DC 12/02/20 14:31 Potassium/ Phosphorus/Sodium (Phos-Nak) 1 pkt 1X ONCE PO 12/02/20 15:00 12/02/20 15:01 Cancel Potassium Bicarbonate (Potassium Effervescent Tablet) 20 meq STK-MED ONCE .ROUTE 12/02/20 14:56 12/02/20 14:57 DC Potassium Bicarbonate (Potassium Effervescent Tablet) 20 meq 1X ONCE PO 12/02/20 15:00 12/02/20 15:01 DC 12/02/20 15:00 Acetaminophen (Tylenol) 650 mg PRN Q6HRS PRN PO MILD PAIN / TEMP > 100.3'F 12/02/20 15:45 01/20/21 19:51 Multi-Ingredient Ointment (Analgesic [place]) 1 itz PRN QID PRN TP MUSCLE PAIN 12/02/20 15:45 Al Hydroxide/Mg Hydroxide (Mylanta Plus Xs) 15 ml PRN AFTMEALHC PRN PO DYSPEPSIA 12/02/20 15:45 Magnesium Hydroxide (Milk Of Magnesia) 2,400 mg PRN QHS PRN PO CONSTIPATION 12/02/20 15:45 12/03/20 16:29 Lisinopril (Prinivil) 10 mg DAILY PO 12/03/20 09:00 01/30/21 08:34 Multivitamins/ Calcium (Thera-M Plus) 1 tab DAILY PO 12/03/20 09:00 01/30/21 08:33 Olanzapine (ZyPREXA ZYDIS) 2.5 mg PRN Q2HRS PRN PO PSYCHOSIS 12/02/20 17:00 01/28/21 14:47 Potassium Chloride (Klor-Con) 20 meq DAILYWBKFT PO 12/04/20 08:00 01/30/21 08:34 Sertraline HCl (Zoloft) 25 mg DAILY PO 12/04/20 09:00 12/06/20 21:00 DC 12/06/20 08:17 Sertraline HCl (Zoloft) 50 mg DAILY PO 12/07/20 09:00 01/30/21 08:33 Quetiapine Fumarate (SEROquel) 12.5 mg 0900 PO 12/09/20 09:00 12/10/20 16:51 DC 12/10/20 09:00 Quetiapine Fumarate (SEROquel) 12.5 mg ONCE ONCE PO 12/08/20 17:15 12/08/20 17:16 DC 12/08/20 17:15 Quetiapine Fumarate (SEROquel) 12.5 mg 1700 PO 12/09/20 18:00 01/02/21 11:54 DC 01/01/21 17:00 Quetiapine Fumarate (SEROquel) 25 mg 0900 PO 12/11/20 09:00 01/30/21 08:33 Divalproex Sodium (Depakote Sprinkles) 125 mg BID PO 12/12/20 21:00 12/13/20 10:16 DC 12/13/20 08:35 Trazodone HCl (Desyrel) 50 mg PRN QHS PRN PO INSOMNIA 12/13/20 00:30 01/29/21 20:01 Divalproex Sodium (Depakote Sprinkles) 125 mg 0900,1700 PO 12/13/20 17:00 12/13/20 17:49 DC 12/13/20 16:35 Valproic Acid (Depakene) 125 mg 0900,1700 PO 12/14/20 09:00 12/17/20 15:35 DC 12/17/20 08:39 Valproic Acid (Depakene) 125 mg [id number] PO 12/17/20 21:00 12/23/20 16:57 DC 12/23/20 14:05 Valproic Acid (Depakene) 125 mg QID PO 12/23/20 17:00 01/02/21 11:54 DC 01/02/21 08:35 Hydroxyzine HCl (Atarax) 10 mg PRN Q2HR PRN PO ITCHING 12/29/20 20:15 01/29/21 20:02 Quetiapine Fumarate (SEROquel) 25 mg 1700 PO 01/02/21 17:00 01/30/21 17:56 Valproic Acid (Depakene) 125 mg 1300,1700 PO 01/02/21 13:00 01/24/21 18:13 DC 01/24/21 16:26 Quetiapine Fumarate (SEROquel) 12.5 mg 1200 PO 01/02/21 12:00 01/30/21 13:23 Valproic Acid (Depakene) 250 mg 0900,2100 PO 01/02/21 21:00 01/24/21 18:13 DC 01/24/21 08:20 Oxycodone/ Acetaminophen (Percocet 7.5/ 325) 1 tab PRN Q6HRS PRN PO MOD-SEV PAIN 01/13/21 16:45 01/21/21 18:29 DC Lidocaine (Lidoderm) 2 patch DAILY TD 01/22/21 09:00 01/30/21 08:35 Miscellaneous (Lidoderm Patch Removal) 1 ea QHS MC 01/22/21 21:00 01/29/21 20:02 Valproic Acid (Depakene) 125 mg 1300,1700,2100 PO 01/24/21 21:00 01/30/21 17:56 Valproic Acid (Depakene) 250 mg 0900 PO 01/25/21 09:00 01/30/21 08:35 I have reviewed the current psychotropics carefully including drug interactions. Risk benefit ratio favors no change other than as noted in my dictated progress note. Diagnosis: Problems: (1) Major neurocognitive disorder (2) Impulse control disorder, unspecified (3) Anxiety disorder, unspecified (4) Dementia, vascular, with depression (5) Dementia, vascular, with delusions (6) Dementia in Alzheimer's disease with depression (7) Dementia in Alzheimer's disease with delusions (8) Dementia of the Alzheimer's type with early onset with behavioral disturbance EMILY CHARLES MD Jan 31, 2021 06:31
[2021-01-31] MEDS: POTASSIUM CHLORIDE 20 MEQ TABLET.ER. PO SCH (08:35)
[2021-01-31] MEDS: MULTIVITAMIN with MINERAL TABLET. PO SCH (08:35)
[2021-01-31] MEDS: QUEtiapine 25 MG TABLET. PO SCH ×3 (08:35→17:16)
[2021-01-31] MEDS: LISINOPRIL 10 MG TABLET PO SCH (08:36)
[2021-01-31] MEDS: VALPROATE ACID 250 MG/5 ML ORAL SOLUTION PO SCH ×4 (08:36→20:20)
[2021-01-31] MEDS: SERTRALINE 50 MG TABLET. PO SCH (08:36)
[2021-01-31] MEDS: LIDOCAINE (700MG/PATCH) PATCH. TD SCH (08:37)
[2021-01-31 16:00] VITALS: BP 111/76
[2021-01-31] MEDS: hydrOXYzine HCL 10 MG TABLET PO PRN (20:20)
[2021-01-31] MEDS: traZODone 50 MG TABLET. PO PRN (20:20)
[2021-01-31] MEDS: PATCH REMOVAL. MC SCH (20:26)
--- NOTE | 2021-01-31 22:08 | PDOC ---
Exam Note: Earle Note: Please also refer to the separate dictated note~for this date of service dictated separately.~Patient seen individually. Discussed the patient with Nursing staff reviewed the chart.~Reviewed interim history and current functioning. Reviewed vital signs,~Labs/ Radiology~and current medications noted below. Continue current treatment with the changes noted in the dictated addendum note Assessment: Vital Signs/I&O: Vital Signs Date Time Temp Pulse Resp B/P (MAP) Pulse Ox O2 Delivery O2 Flow Rate FiO2 01/31/21 16:00 97.5 97 16 111/76 (88) 93 Room Air I & O 01/30/21 01/30/21 01/31/21 15:00 23:00 07:00 Intake Total 720 ml Balance 720 ml Current Medications: Meds: Current Medications Medications (Trade) Dose Ordered Sig/Brianne Route PRN Reason Start Time Stop Time Status Last Admin Dose Admin Lorazepam (Ativan) 1 mg STK-MED ONCE .ROUTE 12/02/20 14:25 12/02/20 14:25 DC Lorazepam (Ativan) 1 mg 1X ONCE PO 12/02/20 14:30 12/02/20 14:36 DC 12/02/20 14:31 Potassium/ Phosphorus/Sodium (Phos-Nak) 1 pkt 1X ONCE PO 12/02/20 15:00 12/02/20 15:01 Cancel Potassium Bicarbonate (Potassium Effervescent Tablet) 20 meq STK-MED ONCE .ROUTE 12/02/20 14:56 12/02/20 14:57 DC Potassium Bicarbonate (Potassium Effervescent Tablet) 20 meq 1X ONCE PO 12/02/20 15:00 12/02/20 15:01 DC 12/02/20 15:00 Acetaminophen (Tylenol) 650 mg PRN Q6HRS PRN PO MILD PAIN / TEMP > 100.3'F 12/02/20 15:45 01/20/21 19:51 Multi-Ingredient Ointment (Analgesic [place]) 1 itz PRN QID PRN TP MUSCLE PAIN 12/02/20 15:45 Al Hydroxide/Mg Hydroxide (Mylanta Plus Xs) 15 ml PRN AFTMEALHC PRN PO DYSPEPSIA 12/02/20 15:45 Magnesium Hydroxide (Milk Of Magnesia) 2,400 mg PRN QHS PRN PO CONSTIPATION 12/02/20 15:45 12/03/20 16:29 Lisinopril (Prinivil) 10 mg DAILY PO 12/03/20 09:00 01/31/21 08:36 Multivitamins/ Calcium (Thera-M Plus) 1 tab DAILY PO 12/03/20 09:00 01/31/21 08:35 Olanzapine (ZyPREXA ZYDIS) 2.5 mg PRN Q2HRS PRN PO PSYCHOSIS 12/02/20 17:00 01/31/21 16:12 Potassium Chloride (Klor-Con) 20 meq DAILYWBKFT PO 12/04/20 08:00 01/31/21 08:35 Sertraline HCl (Zoloft) 25 mg DAILY PO 12/04/20 09:00 12/06/20 21:00 DC 12/06/20 08:17 Sertraline HCl (Zoloft) 50 mg DAILY PO 12/07/20 09:00 01/31/21 08:36 Quetiapine Fumarate (SEROquel) 12.5 mg 0900 PO 12/09/20 09:00 12/10/20 16:51 DC 12/10/20 09:00 Quetiapine Fumarate (SEROquel) 12.5 mg ONCE ONCE PO 12/08/20 17:15 12/08/20 17:16 DC 12/08/20 17:15 Quetiapine Fumarate (SEROquel) 12.5 mg 1700 PO 12/09/20 18:00 01/02/21 11:54 DC 01/01/21 17:00 Quetiapine Fumarate (SEROquel) 25 mg 0900 PO 12/11/20 09:00 01/31/21 08:35 Divalproex Sodium (Depakote Sprinkles) 125 mg BID PO 12/12/20 21:00 12/13/20 10:16 DC 12/13/20 08:35 Trazodone HCl (Desyrel) 50 mg PRN QHS PRN PO INSOMNIA 12/13/20 00:30 01/31/21 20:20 Divalproex Sodium (Depakote Sprinkles) 125 mg 0900,1700 PO 12/13/20 17:00 12/13/20 17:49 DC 12/13/20 16:35 Valproic Acid (Depakene) 125 mg 0900,1700 PO 12/14/20 09:00 12/17/20 15:35 DC 12/17/20 08:39 Valproic Acid (Depakene) 125 mg [id number] PO 12/17/20 21:00 12/23/20 16:57 DC 12/23/20 14:05 Valproic Acid (Depakene) 125 mg QID PO 12/23/20 17:00 01/02/21 11:54 DC 01/02/21 08:35 Hydroxyzine HCl (Atarax) 10 mg PRN Q2HR PRN PO ITCHING 12/29/20 20:15 01/31/21 20:20 Quetiapine Fumarate (SEROquel) 25 mg 1700 PO 01/02/21 17:00 01/31/21 17:16 Valproic Acid (Depakene) 125 mg 1300,1700 PO 01/02/21 13:00 01/24/21 18:13 DC 01/24/21 16:26 Quetiapine Fumarate (SEROquel) 12.5 mg 1200 PO 01/02/21 12:00 01/31/21 12:12 Valproic Acid (Depakene) 250 mg 0900,2100 PO 01/02/21 21:00 01/24/21 18:13 DC 01/24/21 08:20 Oxycodone/ Acetaminophen (Percocet 7.5/ 325) 1 tab PRN Q6HRS PRN PO MOD-SEV PAIN 01/13/21 16:45 01/21/21 18:29 DC Lidocaine (Lidoderm) 2 patch DAILY TD 01/22/21 09:00 01/31/21 08:37 Miscellaneous (Lidoderm Patch Removal) 1 ea QHS MC 01/22/21 21:00 01/31/21 20:26 Valproic Acid (Depakene) 125 mg 1300,1700,2100 PO 01/24/21 21:00 01/31/21 20:20 Valproic Acid (Depakene) 250 mg 0900 PO 01/25/21 09:00 01/31/21 08:36 I have reviewed the current psychotropics carefully including drug interactions. Risk benefit ratio favors no change other than as noted in my dictated progress note. Diagnosis: Problems: (1) Major neurocognitive disorder (2) Impulse control disorder, unspecified (3) Anxiety disorder, unspecified (4) Dementia, vascular, with depression (5) Dementia, vascular, with delusions (6) Dementia in Alzheimer's disease with depression (7) Dementia in Alzheimer's disease with delusions (8) Dementia of the Alzheimer's type with early onset with behavioral disturbance EMILY CHARLES MD Jan 31, 2021 22:08
[2021-02-01 06:18] VITALS: BP 112/72
[2021-02-01 07:35] LABS: BASO # 0.1 x10^3/uL (0.0-0.2); BASO % 1 % (0-3); EOS # 0.2 x10^3/uL (0.0-0.7); EOS % 4 % (0-3); HEMATOCRIT 32.7 % (36.0-47.0); LYMPH # 1.2 x10^3/uL (1.0-4.8); LYMPH % 26 % (24-48); MEAN CORPUSCULAR HEMOGLOBIN 32 pg (25-35); MEAN CORPUSCULAR HGB CONC 34 g/dL (31-37); MEAN CORPUSCULAR VOLUME 95 fL (79-100); MONO # 0.7 x10^3/uL (0.0-1.1); MONO % 14 % (0-9); NEUT # 2.7 x10^3uL (1.8-7.7); NEUT % 55 % (31-73); PLATELET COUNT 212 x10^3/uL (140-400); RED BLOOD COUNT 3.43 x10^6/uL (3.50-5.40); RED CELL DISTRIBUTION WIDTH 13.4 % (11.5-14.5); WHITE BLOOD COUNT 4.8 x10^3/uL (4.0-11.0)
[2021-02-01 07:50] LABS: ALBUMIN 3.1 g/dL (3.4-5.0); CALCIUM 8.4 mg/dL (8.5-10.1); CREATININE 0.6 mg/dL (0.6-1.0); GFR 95.5; TOTAL BILIRUBIN 0.3 mg/dL (0.2-1.0); TOTAL PROTEIN 6.2 g/dL (6.4-8.2)
[2021-02-01] MEDS: POTASSIUM CHLORIDE 20 MEQ TABLET.ER. PO SCH (08:47)
[2021-02-01] MEDS: LISINOPRIL 10 MG TABLET PO SCH (08:48)
[2021-02-01] MEDS: SERTRALINE 50 MG TABLET. PO SCH (08:48)
[2021-02-01] MEDS: VALPROATE ACID 250 MG/5 ML ORAL SOLUTION PO SCH ×4 (08:48→19:41)
[2021-02-01] MEDS: QUEtiapine 25 MG TABLET. PO SCH ×3 (08:49→17:33)
[2021-02-01] MEDS: LIDOCAINE (700MG/PATCH) PATCH. TD SCH (08:49)
[2021-02-01] MEDS: MULTIVITAMIN with MINERAL TABLET. PO SCH (08:49)
[2021-02-01 15:17] VITALS: BP 152/84
[2021-02-01] MEDS: PATCH REMOVAL. MC SCH (19:41)
--- NOTE | 2021-02-01 22:19 | PDOC ---
Exam Note: Earle Note: Please also refer to the separate dictated note~for this date of service dictated separately.~Patient seen individually. Discussed the patient with Nursing staff reviewed the chart.~Reviewed interim history and current functioning. Reviewed vital signs,~Labs/ Radiology~and current medications noted below. Continue current treatment with the changes noted in the dictated addendum note Assessment: Vital Signs/I&O: Vital Signs Date Time Temp Pulse Resp B/P (MAP) Pulse Ox O2 Delivery O2 Flow Rate FiO2 02/01/21 15:17 97.6 81 20 152/84 (106) 97 Room Air I & O 01/31/21 01/31/21 02/01/21 15:00 23:00 07:00 Intake Total 360 ml 240 ml Balance 360 ml 240 ml Labs: Laboratory Tests Test 02/01/21 07:07 White Blood Count 4.8 x10^3/uL (4.0-11.0) Red Blood Count 3.43 x10^6/uL (3.50-5.40) L Hemoglobin 11.0 g/dL (12.0-15.5) L Hematocrit 32.7 % (36.0-47.0) L Mean Corpuscular Volume 95 fL (79-100) Mean Corpuscular Hemoglobin 32 pg (25-35) Mean Corpuscular Hemoglobin Concent 34 g/dL (31-37) Red Cell Distribution Width 13.4 % (11.5-14.5) Platelet Count 212 x10^3/uL (140-400) Neutrophils (%) (Auto) 55 % (31-73) Lymphocytes (%) (Auto) 26 % (24-48) Monocytes (%) (Auto) 14 % (0-9) H Eosinophils (%) (Auto) 4 % (0-3) H Basophils (%) (Auto) 1 % (0-3) Neutrophils # (Auto) 2.7 x10^3uL (1.8-7.7) Lymphocytes # (Auto) 1.2 x10^3/uL (1.0-4.8) Monocytes # (Auto) 0.7 x10^3/uL (0.0-1.1) Eosinophils # (Auto) 0.2 x10^3/uL (0.0-0.7) Basophils # (Auto) 0.1 x10^3/uL (0.0-0.2) Sodium Level 143 mmol/L (136-145) Potassium Level 4.0 mmol/L (3.5-5.1) Chloride Level 106 mmol/L (98-107) Carbon Dioxide Level 29 mmol/L (21-32) Anion Gap 8 (6-14) Blood Urea Nitrogen 23 mg/dL (7-20) H Creatinine 0.6 mg/dL (0.6-1.0) Estimated GFR (Cockcroft-Gault) 95.5 BUN/Creatinine Ratio 38 (6-20) H Glucose Level 87 mg/dL (70-99) Calcium Level 8.4 mg/dL (8.5-10.1) L Total Bilirubin 0.3 mg/dL (0.2-1.0) Aspartate Amino Transferase (AST) 17 U/L (15-37) Alanine Aminotransferase (ALT) 18 U/L (14-59) Alkaline Phosphatase 51 U/L (46-116) Total Protein 6.2 g/dL (6.4-8.2) L Albumin 3.1 g/dL (3.4-5.0) L Albumin/Globulin Ratio 1.0 (1.0-1.7) Current Medications: Meds: Laboratory Tests Test 02/01/21 07:07 White Blood Count 4.8 x10^3/uL Red Blood Count 3.43 x10^6/uL Hemoglobin 11.0 g/dL Hematocrit 32.7 % Mean Corpuscular Volume 95 fL Mean Corpuscular Hemoglobin 32 pg Mean Corpuscular Hemoglobin Concent 34 g/dL Red Cell Distribution Width 13.4 % Platelet Count 212 x10^3/uL Neutrophils (%) (Auto) 55 % Lymphocytes (%) (Auto) 26 % Monocytes (%) (Auto) 14 % Eosinophils (%) (Auto) 4 % Basophils (%) (Auto) 1 % Neutrophils # (Auto) 2.7 x10^3uL Lymphocytes # (Auto) 1.2 x10^3/uL Monocytes # (Auto) 0.7 x10^3/uL Eosinophils # (Auto) 0.2 x10^3/uL Basophils # (Auto) 0.1 x10^3/uL Sodium Level 143 mmol/L Potassium Level 4.0 mmol/L Chloride Level 106 mmol/L Carbon Dioxide Level 29 mmol/L Anion Gap 8 Blood Urea Nitrogen 23 mg/dL Creatinine 0.6 mg/dL Estimated GFR (Cockcroft-Gault) 95.5 BUN/Creatinine Ratio 38 Glucose Level 87 mg/dL Calcium Level 8.4 mg/dL Total Bilirubin 0.3 mg/dL Aspartate Amino Transf (AST/SGOT) 17 U/L Alanine Aminotransferase (ALT/SGPT) 18 U/L Alkaline Phosphatase 51 U/L Total Protein 6.2 g/dL Albumin 3.1 g/dL Albumin/Globulin Ratio 1.0 Current Medications Medications (Trade) Dose Ordered Sig/Brianne Route PRN Reason Start Time Stop Time Status Last Admin Dose Admin Lorazepam (Ativan) 1 mg STK-MED ONCE .ROUTE 12/02/20 14:25 12/02/20 14:25 DC Lorazepam (Ativan) 1 mg 1X ONCE PO 12/02/20 14:30 12/02/20 14:36 DC 12/02/20 14:31 Potassium/ Phosphorus/Sodium (Phos-Nak) 1 pkt 1X ONCE PO 12/02/20 15:00 12/02/20 15:01 Cancel Potassium Bicarbonate (Potassium Effervescent Tablet) 20 meq STK-MED ONCE .ROUTE 12/02/20 14:56 12/02/20 14:57 DC Potassium Bicarbonate (Potassium Effervescent Tablet) 20 meq 1X ONCE PO 12/02/20 15:00 12/02/20 15:01 DC 12/02/20 15:00 Acetaminophen (Tylenol) 650 mg PRN Q6HRS PRN PO MILD PAIN / TEMP > 100.3'F 12/02/20 15:45 01/20/21 19:51 Multi-Ingredient Ointment (Analgesic [place]) 1 itz PRN QID PRN TP MUSCLE PAIN 12/02/20 15:45 Al Hydroxide/Mg Hydroxide (Mylanta Plus Xs) 15 ml PRN AFTMEALHC PRN PO DYSPEPSIA 12/02/20 15:45 Magnesium Hydroxide (Milk Of Magnesia) 2,400 mg PRN QHS PRN PO CONSTIPATION 12/02/20 15:45 12/03/20 16:29 Lisinopril (Prinivil) 10 mg DAILY PO 12/03/20 09:00 02/01/21 08:48 Multivitamins/ Calcium (Thera-M Plus) 1 tab DAILY PO 12/03/20 09:00 02/01/21 08:49 Olanzapine (ZyPREXA ZYDIS) 2.5 mg PRN Q2HRS PRN PO PSYCHOSIS 12/02/20 17:00 01/31/21 16:12 Potassium Chloride (Klor-Con) 20 meq DAILYWBKFT PO 12/04/20 08:00 02/01/21 08:47 Sertraline HCl (Zoloft) 25 mg DAILY PO 12/04/20 09:00 12/06/20 21:00 DC 12/06/20 08:17 Sertraline HCl (Zoloft) 50 mg DAILY PO 12/07/20 09:00 02/01/21 08:48 Quetiapine Fumarate (SEROquel) 12.5 mg 0900 PO 12/09/20 09:00 12/10/20 16:51 DC 12/10/20 09:00 Quetiapine Fumarate (SEROquel) 12.5 mg ONCE ONCE PO 12/08/20 17:15 12/08/20 17:16 DC 12/08/20 17:15 Quetiapine Fumarate (SEROquel) 12.5 mg 1700 PO 12/09/20 18:00 01/02/21 11:54 DC 01/01/21 17:00 Quetiapine Fumarate (SEROquel) 25 mg 0900 PO 12/11/20 09:00 02/01/21 08:49 Divalproex Sodium (Depakote Sprinkles) 125 mg BID PO 12/12/20 21:00 12/13/20 10:16 DC 12/13/20 08:35 Trazodone HCl (Desyrel) 50 mg PRN QHS PRN PO INSOMNIA 12/13/20 00:30 01/31/21 20:20 Divalproex Sodium (Depakote Sprinkles) 125 mg 0900,1700 PO 12/13/20 17:00 12/13/20 17:49 DC 12/13/20 16:35 Valproic Acid (Depakene) 125 mg 0900,1700 PO 12/14/20 09:00 12/17/20 15:35 DC 12/17/20 08:39 Valproic Acid (Depakene) 125 mg [id number] PO 12/17/20 21:00 12/23/20 16:57 DC 12/23/20 14:05 Valproic Acid (Depakene) 125 mg QID PO 12/23/20 17:00 01/02/21 11:54 DC 01/02/21 08:35 Hydroxyzine HCl (Atarax) 10 mg PRN Q2HR PRN PO ITCHING 12/29/20 20:15 01/31/21 20:20 Quetiapine Fumarate (SEROquel) 25 mg 1700 PO 01/02/21 17:00 02/01/21 17:33 Valproic Acid (Depakene) 125 mg 1300,1700 PO 01/02/21 13:00 01/24/21 18:13 DC 01/24/21 16:26 Quetiapine Fumarate (SEROquel) 12.5 mg 1200 PO 01/02/21 12:00 02/01/21 12:10 Valproic Acid (Depakene) 250 mg 0900,2100 PO 01/02/21 21:00 01/24/21 18:13 DC 01/24/21 08:20 Oxycodone/ Acetaminophen (Percocet 7.5/ 325) 1 tab PRN Q6HRS PRN PO MOD-SEV PAIN 01/13/21 16:45 01/21/21 18:29 DC Lidocaine (Lidoderm) 2 patch DAILY TD 01/22/21 09:00 02/01/21 08:49 Miscellaneous (Lidoderm Patch Removal) 1 ea QHS MC 01/22/21 21:00 02/01/21 19:41 Valproic Acid (Depakene) 125 mg 1300,1700,2100 PO 01/24/21 21:00 02/01/21 19:41 Valproic Acid (Depakene) 250 mg 0900 PO 01/25/21 09:00 02/01/21 08:48 I have reviewed the current psychotropics carefully including drug interactions. Risk benefit ratio favors no change other than as noted in my dictated progress note. Diagnosis: Problems: (1) Major neurocognitive disorder (2) Impulse control disorder, unspecified (3) Anxiety disorder, unspecified (4) Dementia, vascular, with depression (5) Dementia, vascular, with delusions (6) Dementia in Alzheimer's disease with depression (7) Dementia in Alzheimer's disease with delusions (8) Dementia of the Alzheimer's type with early onset with behavioral disturbance EMILY CHARLES MD Feb 01, 2021 22:19
[2021-02-02 06:02] VITALS: BP 128/81
--- NOTE | 2021-02-02 06:24 | PDOC ---
Exam Note: Earle Note: This note is a late entry for 01/31/2021overs elements not covered in my initial note. Subjective: The patient was seen individually in the evening of 01/31/2021 with [place] APPIAH, discussed and reviewed the chart. The patient slept 6-3/4 hours previous night. The patient has had ongoing confusion, wandering. Received Zyprexa at 4.15 p.m., does redirect. Review of Systems: Ambulation impaired. No CV, , pulmonary, ENT system symptoms on review. Mental Status Exam: The patient is oriented to herself. Insight and judgment, recent and remote memory, attention and concentration is poor consistent with her diagnoses. Laboratory Data: Reviewed. Impression: Major neurocognitive disorder Alzheimer vascular with delusion, depression, and behavioral disturbance. Anxiety disorder unspecified. Impulse control disorder unspecified. Plan: No change from initial note. Assessment: Vital Signs/I&O: Vital Signs Date Time Temp Pulse Resp B/P (MAP) Pulse Ox O2 Delivery O2 Flow Rate FiO2 02/02/21 06:02 96.8 68 16 128/81 (97) 95 02/01/21 15:17 Room Air I & O 02/01/21 02/01/21 02/02/21 15:00 23:00 07:00 Intake Total 720 ml 370 ml Balance 720 ml 370 ml Labs: Laboratory Tests Test 02/01/21 07:07 White Blood Count 4.8 x10^3/uL (4.0-11.0) Red Blood Count 3.43 x10^6/uL (3.50-5.40) L Hemoglobin 11.0 g/dL (12.0-15.5) L Hematocrit 32.7 % (36.0-47.0) L Mean Corpuscular Volume 95 fL (79-100) Mean Corpuscular Hemoglobin 32 pg (25-35) Mean Corpuscular Hemoglobin Concent 34 g/dL (31-37) Red Cell Distribution Width 13.4 % (11.5-14.5) Platelet Count 212 x10^3/uL (140-400) Neutrophils (%) (Auto) 55 % (31-73) Lymphocytes (%) (Auto) 26 % (24-48) Monocytes (%) (Auto) 14 % (0-9) H Eosinophils (%) (Auto) 4 % (0-3) H Basophils (%) (Auto) 1 % (0-3) Neutrophils # (Auto) 2.7 x10^3uL (1.8-7.7) Lymphocytes # (Auto) 1.2 x10^3/uL (1.0-4.8) Monocytes # (Auto) 0.7 x10^3/uL (0.0-1.1) Eosinophils # (Auto) 0.2 x10^3/uL (0.0-0.7) Basophils # (Auto) 0.1 x10^3/uL (0.0-0.2) Sodium Level 143 mmol/L (136-145) Potassium Level 4.0 mmol/L (3.5-5.1) Chloride Level 106 mmol/L (98-107) Carbon Dioxide Level 29 mmol/L (21-32) Anion Gap 8 (6-14) Blood Urea Nitrogen 23 mg/dL (7-20) H Creatinine 0.6 mg/dL (0.6-1.0) Estimated GFR (Cockcroft-Gault) 95.5 BUN/Creatinine Ratio 38 (6-20) H Glucose Level 87 mg/dL (70-99) Calcium Level 8.4 mg/dL (8.5-10.1) L Total Bilirubin 0.3 mg/dL (0.2-1.0) Aspartate Amino Transferase (AST) 17 U/L (15-37) Alanine Aminotransferase (ALT) 18 U/L (14-59) Alkaline Phosphatase 51 U/L (46-116) Total Protein 6.2 g/dL (6.4-8.2) L Albumin 3.1 g/dL (3.4-5.0) L Albumin/Globulin Ratio 1.0 (1.0-1.7) Current Medications: Meds: Laboratory Tests Test 02/01/21 07:07 White Blood Count 4.8 x10^3/uL Red Blood Count 3.43 x10^6/uL Hemoglobin 11.0 g/dL Hematocrit 32.7 % Mean Corpuscular Volume 95 fL Mean Corpuscular Hemoglobin 32 pg Mean Corpuscular Hemoglobin Concent 34 g/dL Red Cell Distribution Width 13.4 % Platelet Count 212 x10^3/uL Neutrophils (%) (Auto) 55 % Lymphocytes (%) (Auto) 26 % Monocytes (%) (Auto) 14 % Eosinophils (%) (Auto) 4 % Basophils (%) (Auto) 1 % Neutrophils # (Auto) 2.7 x10^3uL Lymphocytes # (Auto) 1.2 x10^3/uL Monocytes # (Auto) 0.7 x10^3/uL Eosinophils # (Auto) 0.2 x10^3/uL Basophils # (Auto) 0.1 x10^3/uL Sodium Level 143 mmol/L Potassium Level 4.0 mmol/L Chloride Level 106 mmol/L Carbon Dioxide Level 29 mmol/L Anion Gap 8 Blood Urea Nitrogen 23 mg/dL Creatinine 0.6 mg/dL Estimated GFR (Cockcroft-Gault) 95.5 BUN/Creatinine Ratio 38 Glucose Level 87 mg/dL Calcium Level 8.4 mg/dL Total Bilirubin 0.3 mg/dL Aspartate Amino Transf (AST/SGOT) 17 U/L Alanine Aminotransferase (ALT/SGPT) 18 U/L Alkaline Phosphatase 51 U/L Total Protein 6.2 g/dL Albumin 3.1 g/dL Albumin/Globulin Ratio 1.0 Current Medications Medications (Trade) Dose Ordered Sig/Brianne Route PRN Reason Start Time Stop Time Status Last Admin Dose Admin Lorazepam (Ativan) 1 mg STK-MED ONCE .ROUTE 12/02/20 14:25 12/02/20 14:25 DC Lorazepam (Ativan) 1 mg 1X ONCE PO 12/02/20 14:30 12/02/20 14:36 DC 12/02/20 14:31 Potassium/ Phosphorus/Sodium (Phos-Nak) 1 pkt 1X ONCE PO 12/02/20 15:00 12/02/20 15:01 Cancel Potassium Bicarbonate (Potassium Effervescent Tablet) 20 meq STK-MED ONCE .ROUTE 12/02/20 14:56 12/02/20 14:57 DC Potassium Bicarbonate (Potassium Effervescent Tablet) 20 meq 1X ONCE PO 12/02/20 15:00 12/02/20 15:01 DC 12/02/20 15:00 Acetaminophen (Tylenol) 650 mg PRN Q6HRS PRN PO MILD PAIN / TEMP > 100.3'F 12/02/20 15:45 01/20/21 19:51 Multi-Ingredient Ointment (Analgesic [place]) 1 itz PRN QID PRN TP MUSCLE PAIN 12/02/20 15:45 Al Hydroxide/Mg Hydroxide (Mylanta Plus Xs) 15 ml PRN AFTMEALHC PRN PO DYSPEPSIA 12/02/20 15:45 Magnesium Hydroxide (Milk Of Magnesia) 2,400 mg PRN QHS PRN PO CONSTIPATION 12/02/20 15:45 12/03/20 16:29 Lisinopril (Prinivil) 10 mg DAILY PO 12/03/20 09:00 02/01/21 08:48 Multivitamins/ Calcium (Thera-M Plus) 1 tab DAILY PO 12/03/20 09:00 02/01/21 08:49 Olanzapine (ZyPREXA ZYDIS) 2.5 mg PRN Q2HRS PRN PO PSYCHOSIS 12/02/20 17:00 01/31/21 16:12 Potassium Chloride (Klor-Con) 20 meq DAILYWBKFT PO 12/04/20 08:00 02/01/21 08:47 Sertraline HCl (Zoloft) 25 mg DAILY PO 12/04/20 09:00 12/06/20 21:00 DC 12/06/20 08:17 Sertraline HCl (Zoloft) 50 mg DAILY PO 12/07/20 09:00 02/01/21 08:48 Quetiapine Fumarate (SEROquel) 12.5 mg 0900 PO 12/09/20 09:00 12/10/20 16:51 DC 12/10/20 09:00 Quetiapine Fumarate (SEROquel) 12.5 mg ONCE ONCE PO 12/08/20 17:15 12/08/20 17:16 DC 12/08/20 17:15 Quetiapine Fumarate (SEROquel) 12.5 mg 1700 PO 12/09/20 18:00 01/02/21 11:54 DC 01/01/21 17:00 Quetiapine Fumarate (SEROquel) 25 mg 0900 PO 12/11/20 09:00 02/01/21 08:49 Divalproex Sodium (Depakote Sprinkles) 125 mg BID PO 12/12/20 21:00 12/13/20 10:16 DC 12/13/20 08:35 Trazodone HCl (Desyrel) 50 mg PRN QHS PRN PO INSOMNIA 12/13/20 00:30 01/31/21 20:20 Divalproex Sodium (Depakote Sprinkles) 125 mg 0900,1700 PO 12/13/20 17:00 12/13/20 17:49 DC 12/13/20 16:35 Valproic Acid (Depakene) 125 mg 0900,1700 PO 12/14/20 09:00 12/17/20 15:35 DC 12/17/20 08:39 Valproic Acid (Depakene) 125 mg [id number] PO 12/17/20 21:00 12/23/20 16:57 DC 12/23/20 14:05 Valproic Acid (Depakene) 125 mg QID PO 12/23/20 17:00 01/02/21 11:54 DC 01/02/21 08:35 Hydroxyzine HCl (Atarax) 10 mg PRN Q2HR PRN PO ITCHING 12/29/20 20:15 01/31/21 20:20 Quetiapine Fumarate (SEROquel) 25 mg 1700 PO 01/02/21 17:00 02/01/21 17:33 Valproic Acid (Depakene) 125 mg 1300,1700 PO 01/02/21 13:00 01/24/21 18:13 DC 01/24/21 16:26 Quetiapine Fumarate (SEROquel) 12.5 mg 1200 PO 01/02/21 12:00 02/01/21 12:10 Valproic Acid (Depakene) 250 mg 0900,2100 PO 01/02/21 21:00 01/24/21 18:13 DC 01/24/21 08:20 Oxycodone/ Acetaminophen (Percocet 7.5/ 325) 1 tab PRN Q6HRS PRN PO MOD-SEV PAIN 01/13/21 16:45 01/21/21 18:29 DC Lidocaine (Lidoderm) 2 patch DAILY TD 01/22/21 09:00 02/01/21 08:49 Miscellaneous (Lidoderm Patch Removal) 1 ea QHS MC 01/22/21 21:00 02/01/21 19:41 Valproic Acid (Depakene) 125 mg 1300,1700,2100 PO 01/24/21 21:00 02/01/21 19:41 Valproic Acid (Depakene) 250 mg 0900 PO 01/25/21 09:00 02/01/21 08:48 I have reviewed the current psychotropics carefully including drug interactions. Risk benefit ratio favors no change other than as noted in my dictated progress note. Diagnosis: Problems: (1) Major neurocognitive disorder (2) Impulse control disorder, unspecified (3) Anxiety disorder, unspecified (4) Dementia, vascular, with depression (5) Dementia, vascular, with delusions (6) Dementia in Alzheimer's disease with depression (7) Dementia in Alzheimer's disease with delusions (8) Dementia of the Alzheimer's type with early onset with behavioral disturbance EMILY CHARLES MD Feb 02, 2021 06:24
[2021-02-02] MEDS: QUEtiapine 25 MG TABLET. PO SCH ×3 (08:17→17:34)
[2021-02-02] MEDS: SERTRALINE 50 MG TABLET. PO SCH (08:17)
[2021-02-02] MEDS: MULTIVITAMIN with MINERAL TABLET. PO SCH (08:17)
[2021-02-02] MEDS: POTASSIUM CHLORIDE 20 MEQ TABLET.ER. PO SCH (08:17)
[2021-02-02] MEDS: LISINOPRIL 10 MG TABLET PO SCH (08:17)
[2021-02-02] MEDS: LIDOCAINE (700MG/PATCH) PATCH. TD SCH (08:18)
[2021-02-02] MEDS: VALPROATE ACID 250 MG/5 ML ORAL SOLUTION PO SCH ×4 (08:18→20:15)
[2021-02-02 16:04] VITALS: BP 117/76
[2021-02-02] MEDS ORDERED: LIDOCAINE (700MG/PATCH) PATCH. TD PRN (18:45)
[2021-02-02] MEDS: traZODone 50 MG TABLET. PO PRN (20:14)
[2021-02-02] MEDS: PATCH REMOVAL. MC SCH (20:15)
[2021-02-03 05:41] VITALS: BP 123/71
[2021-02-03] MEDS: POTASSIUM CHLORIDE 20 MEQ TABLET.ER. PO SCH (08:28)
[2021-02-03] MEDS: VALPROATE ACID 250 MG/5 ML ORAL SOLUTION PO SCH ×4 (08:28→20:20)
[2021-02-03] MEDS: QUEtiapine 25 MG TABLET. PO SCH ×3 (08:29→17:00)
[2021-02-03] MEDS: MULTIVITAMIN with MINERAL TABLET. PO SCH (08:29)
[2021-02-03] MEDS: SERTRALINE 50 MG TABLET. PO SCH (08:29)
[2021-02-03] MEDS: LISINOPRIL 10 MG TABLET PO SCH (08:29)
--- NOTE | 2021-02-03 09:41 | PDOC ---
Exam Note: Earle Note: Late entry for 02/02/2021. Please also refer to the separate dictated note~for this date of service dictated separately.~Patient seen individually. Discussed the patient with Nursing staff reviewed the chart.~Reviewed interim history and current functioning. Reviewed vital signs,~Labs/ Radiology~and current medic ations noted below. Continue current treatment with the changes noted in the dictated addendum note Assessment: Vital Signs/I&O: Vital Signs Date Time Temp Pulse Resp B/P (MAP) Pulse Ox O2 Delivery O2 Flow Rate FiO2 02/03/21 08:29 66 123/71 02/03/21 05:41 97.5 18 96 02/01/21 15:17 Room Air I & O 02/02/21 02/02/21 02/03/21 15:00 23:00 07:00 Intake Total 960 ml 600 ml Balance 960 ml 600 ml Current Medications: Meds: Current Medications Medications (Trade) Dose Ordered Sig/Brianne Route PRN Reason Start Time Stop Time Status Last Admin Dose Admin Lorazepam (Ativan) 1 mg STK-MED ONCE .ROUTE 12/02/20 14:25 12/02/20 14:25 DC Lorazepam (Ativan) 1 mg 1X ONCE PO 12/02/20 14:30 12/02/20 14:36 DC 12/02/20 14:31 Potassium/ Phosphorus/Sodium (Phos-Nak) 1 pkt 1X ONCE PO 12/02/20 15:00 12/02/20 15:01 Cancel Potassium Bicarbonate (Potassium Effervescent Tablet) 20 meq STK-MED ONCE .ROUTE 12/02/20 14:56 12/02/20 14:57 DC Potassium Bicarbonate (Potassium Effervescent Tablet) 20 meq 1X ONCE PO 12/02/20 15:00 12/02/20 15:01 DC 12/02/20 15:00 Acetaminophen (Tylenol) 650 mg PRN Q6HRS PRN PO MILD PAIN / TEMP > 100.3'F 12/02/20 15:45 01/20/21 19:51 Multi-Ingredient Ointment (Analgesic [place]) 1 itz PRN QID PRN TP MUSCLE PAIN 12/02/20 15:45 Al Hydroxide/Mg Hydroxide (Mylanta Plus Xs) 15 ml PRN AFTMEALHC PRN PO DYSPEPSIA 12/02/20 15:45 Magnesium Hydroxide (Milk Of Magnesia) 2,400 mg PRN QHS PRN PO CONSTIPATION 12/02/20 15:45 12/03/20 16:29 Lisinopril (Prinivil) 10 mg DAILY PO 12/03/20 09:00 02/03/21 08:29 Multivitamins/ Calcium (Thera-M Plus) 1 tab DAILY PO 12/03/20 09:00 02/03/21 08:29 Olanzapine (ZyPREXA ZYDIS) 2.5 mg PRN Q2HRS PRN PO PSYCHOSIS 12/02/20 17:00 02/02/21 13:07 Potassium Chloride (Klor-Con) 20 meq DAILYWBKFT PO 12/04/20 08:00 02/03/21 08:28 Sertraline HCl (Zoloft) 25 mg DAILY PO 12/04/20 09:00 12/06/20 21:00 DC 12/06/20 08:17 Sertraline HCl (Zoloft) 50 mg DAILY PO 12/07/20 09:00 02/03/21 08:29 Quetiapine Fumarate (SEROquel) 12.5 mg 0900 PO 12/09/20 09:00 12/10/20 16:51 DC 12/10/20 09:00 Quetiapine Fumarate (SEROquel) 12.5 mg ONCE ONCE PO 12/08/20 17:15 12/08/20 17:16 DC 12/08/20 17:15 Quetiapine Fumarate (SEROquel) 12.5 mg 1700 PO 12/09/20 18:00 01/02/21 11:54 DC 01/01/21 17:00 Quetiapine Fumarate (SEROquel) 25 mg 0900 PO 12/11/20 09:00 02/03/21 08:29 Divalproex Sodium (Depakote Sprinkles) 125 mg BID PO 12/12/20 21:00 12/13/20 10:16 DC 12/13/20 08:35 Trazodone HCl (Desyrel) 50 mg PRN QHS PRN PO INSOMNIA 12/13/20 00:30 02/02/21 20:14 Divalproex Sodium (Depakote Sprinkles) 125 mg 0900,1700 PO 12/13/20 17:00 12/13/20 17:49 DC 12/13/20 16:35 Valproic Acid (Depakene) 125 mg 0900,1700 PO 12/14/20 09:00 12/17/20 15:35 DC 12/17/20 08:39 Valproic Acid (Depakene) 125 mg [id number] PO 12/17/20 21:00 12/23/20 16:57 DC 12/23/20 14:05 Valproic Acid (Depakene) 125 mg QID PO 12/23/20 17:00 01/02/21 11:54 DC 01/02/21 08:35 Hydroxyzine HCl (Atarax) 10 mg PRN Q2HR PRN PO ITCHING 12/29/20 20:15 01/31/21 20:20 Quetiapine Fumarate (SEROquel) 25 mg 1700 PO 01/02/21 17:00 02/02/21 17:34 Valproic Acid (Depakene) 125 mg 1300,1700 PO 01/02/21 13:00 01/24/21 18:13 DC 01/24/21 16:26 Quetiapine Fumarate (SEROquel) 12.5 mg 1200 PO 01/02/21 12:00 02/02/21 12:22 Valproic Acid (Depakene) 250 mg 0900,2100 PO 01/02/21 21:00 01/24/21 18:13 DC 01/24/21 08:20 Oxycodone/ Acetaminophen (Percocet 7.5/ 325) 1 tab PRN Q6HRS PRN PO MOD-SEV PAIN 01/13/21 16:45 01/21/21 18:29 DC Lidocaine (Lidoderm) 2 patch DAILY TD 01/22/21 09:00 02/02/21 18:41 DC 02/02/21 08:18 Miscellaneous (Lidoderm Patch Removal) 1 ea QHS MC 01/22/21 21:00 02/02/21 20:15 Valproic Acid (Depakene) 125 mg 1300,1700,2100 PO 01/24/21 21:00 02/02/21 20:15 Valproic Acid (Depakene) 250 mg 0900 PO 01/25/21 09:00 02/03/21 08:28 Lidocaine (Lidoderm) 2 patch PRN DAILY PRN TD MUSCLE PAIN 02/02/21 18:45 I have reviewed the current psychotropics carefully including drug interactions. Risk benefit ratio favors no change other than as noted in my dictated progress note. Diagnosis: Problems: (1) Major neurocognitive disorder (2) Impulse control disorder, unspecified (3) Anxiety disorder, unspecified (4) Dementia, vascular, with depression (5) Dementia, vascular, with delusions (6) Dementia in Alzheimer's disease with depression (7) Dementia in Alzheimer's disease with delusions (8) Dementia of the Alzheimer's type with early onset with behavioral disturbance EMILY CHARLES MD Feb 03, 2021 09:41
[2021-02-03 15:44] VITALS: BP 120/77
[2021-02-03] MEDS: PATCH REMOVAL. MC SCH (19:39)
[2021-02-03] MEDS: traZODone 50 MG TABLET. PO PRN (20:21)
--- NOTE | 2021-02-03 22:04 | PDOC ---
Exam Note: Earle Note: Please also refer to the separate dictated note~for this date of service dictated separately.~Patient seen individually. Discussed the patient with Nursing staff reviewed the chart.~Reviewed interim history and current functioning. Reviewed vital signs,~Labs/ Radiology~and current medications noted below. Continue current treatment with the changes noted in the dictated addendum note Assessment: Vital Signs/I&O: Vital Signs Date Time Temp Pulse Resp B/P (MAP) Pulse Ox O2 Delivery O2 Flow Rate FiO2 02/03/21 15:44 97.2 78 16 120/77 (91) 94 Room Air I & O 02/02/21 02/02/21 02/03/21 15:00 23:00 07:00 Intake Total 960 ml 600 ml Balance 960 ml 600 ml Current Medications: Meds: Current Medications Medications (Trade) Dose Ordered Sig/Brianne Route PRN Reason Start Time Stop Time Status Last Admin Dose Admin Lorazepam (Ativan) 1 mg STK-MED ONCE .ROUTE 12/02/20 14:25 12/02/20 14:25 DC Lorazepam (Ativan) 1 mg 1X ONCE PO 12/02/20 14:30 12/02/20 14:36 DC 12/02/20 14:31 Potassium/ Phosphorus/Sodium (Phos-Nak) 1 pkt 1X ONCE PO 12/02/20 15:00 12/02/20 15:01 Cancel Potassium Bicarbonate (Potassium Effervescent Tablet) 20 meq STK-MED ONCE .ROUTE 12/02/20 14:56 12/02/20 14:57 DC Potassium Bicarbonate (Potassium Effervescent Tablet) 20 meq 1X ONCE PO 12/02/20 15:00 12/02/20 15:01 DC 12/02/20 15:00 Acetaminophen (Tylenol) 650 mg PRN Q6HRS PRN PO MILD PAIN / TEMP > 100.3'F 12/02/20 15:45 01/20/21 19:51 Multi-Ingredient Ointment (Analgesic [place]) 1 itz PRN QID PRN TP MUSCLE PAIN 12/02/20 15:45 Al Hydroxide/Mg Hydroxide (Mylanta Plus Xs) 15 ml PRN AFTMEALHC PRN PO DYSPEPSIA 12/02/20 15:45 Magnesium Hydroxide (Milk Of Magnesia) 2,400 mg PRN QHS PRN PO CONSTIPATION 12/02/20 15:45 12/03/20 16:29 Lisinopril (Prinivil) 10 mg DAILY PO 12/03/20 09:00 02/03/21 08:29 Multivitamins/ Calcium (Thera-M Plus) 1 tab DAILY PO 12/03/20 09:00 02/03/21 08:29 Olanzapine (ZyPREXA ZYDIS) 2.5 mg PRN Q2HRS PRN PO PSYCHOSIS 12/02/20 17:00 02/02/21 13:07 Potassium Chloride (Klor-Con) 20 meq DAILYWBKFT PO 12/04/20 08:00 02/03/21 08:28 Sertraline HCl (Zoloft) 25 mg DAILY PO 12/04/20 09:00 12/06/20 21:00 DC 12/06/20 08:17 Sertraline HCl (Zoloft) 50 mg DAILY PO 12/07/20 09:00 02/03/21 08:29 Quetiapine Fumarate (SEROquel) 12.5 mg 0900 PO 12/09/20 09:00 12/10/20 16:51 DC 12/10/20 09:00 Quetiapine Fumarate (SEROquel) 12.5 mg ONCE ONCE PO 12/08/20 17:15 12/08/20 17:16 DC 12/08/20 17:15 Quetiapine Fumarate (SEROquel) 12.5 mg 1700 PO 12/09/20 18:00 01/02/21 11:54 DC 01/01/21 17:00 Quetiapine Fumarate (SEROquel) 25 mg 0900 PO 12/11/20 09:00 02/03/21 08:29 Divalproex Sodium (Depakote Sprinkles) 125 mg BID PO 12/12/20 21:00 12/13/20 10:16 DC 12/13/20 08:35 Trazodone HCl (Desyrel) 50 mg PRN QHS PRN PO INSOMNIA 12/13/20 00:30 02/03/21 20:21 Divalproex Sodium (Depakote Sprinkles) 125 mg 0900,1700 PO 12/13/20 17:00 12/13/20 17:49 DC 12/13/20 16:35 Valproic Acid (Depakene) 125 mg 0900,1700 PO 12/14/20 09:00 12/17/20 15:35 DC 12/17/20 08:39 Valproic Acid (Depakene) 125 mg [id number] PO 12/17/20 21:00 12/23/20 16:57 DC 12/23/20 14:05 Valproic Acid (Depakene) 125 mg QID PO 12/23/20 17:00 01/02/21 11:54 DC 01/02/21 08:35 Hydroxyzine HCl (Atarax) 10 mg PRN Q2HR PRN PO ITCHING 12/29/20 20:15 01/31/21 20:20 Quetiapine Fumarate (SEROquel) 25 mg 1700 PO 01/02/21 17:00 02/03/21 17:00 Valproic Acid (Depakene) 125 mg 1300,1700 PO 01/02/21 13:00 01/24/21 18:13 DC 01/24/21 16:26 Quetiapine Fumarate (SEROquel) 12.5 mg 1200 PO 01/02/21 12:00 02/03/21 12:22 Valproic Acid (Depakene) 250 mg 0900,2100 PO 01/02/21 21:00 01/24/21 18:13 DC 01/24/21 08:20 Oxycodone/ Acetaminophen (Percocet 7.5/ 325) 1 tab PRN Q6HRS PRN PO MOD-SEV PAIN 01/13/21 16:45 01/21/21 18:29 DC Lidocaine (Lidoderm) 2 patch DAILY TD 01/22/21 09:00 02/02/21 18:41 DC 02/02/21 08:18 Miscellaneous (Lidoderm Patch Removal) 1 ea QHS MC 01/22/21 21:00 02/02/21 20:15 Valproic Acid (Depakene) 125 mg 1300,1700,2100 PO 01/24/21 21:00 02/03/21 20:20 Valproic Acid (Depakene) 250 mg 0900 PO 01/25/21 09:00 02/03/21 08:28 Lidocaine (Lidoderm) 2 patch PRN DAILY PRN TD MUSCLE PAIN 02/02/21 18:45 I have reviewed the current psychotropics carefully including drug interactions. Risk benefit ratio favors no change other than as noted in my dictated progress note. Diagnosis: Problems: (1) Major neurocognitive disorder (2) Impulse control disorder, unspecified (3) Anxiety disorder, unspecified (4) Dementia, vascular, with depression (5) Dementia, vascular, with delusions (6) Dementia in Alzheimer's disease with depression (7) Dementia in Alzheimer's disease with delusions (8) Dementia of the Alzheimer's type with early onset with behavioral disturbance EMILY CHARLES MD Feb 03, 2021 22:04
[2021-02-04 05:37] VITALS: BP 118/75
[2021-02-04] MEDS: POTASSIUM CHLORIDE 20 MEQ TABLET.ER. PO SCH (08:29)
[2021-02-04] MEDS: SERTRALINE 50 MG TABLET. PO SCH (08:30)
[2021-02-04] MEDS: QUEtiapine 25 MG TABLET. PO SCH ×3 (08:30→17:28)
[2021-02-04] MEDS: MULTIVITAMIN with MINERAL TABLET. PO SCH (08:30)
[2021-02-04] MEDS: VALPROATE ACID 250 MG/5 ML ORAL SOLUTION PO SCH ×4 (08:30→19:55)
[2021-02-04] MEDS: LISINOPRIL 10 MG TABLET PO SCH (08:30)
[2021-02-04 15:25] VITALS: BP 112/71
[2021-02-04] MEDS: PATCH REMOVAL. MC SCH (19:55)
[2021-02-04] MEDS: traZODone 50 MG TABLET. PO PRN (19:55)
--- NOTE | 2021-02-04 22:08 | PDOC ---
Exam Note: Earle Note: This note is a late entry for 02/01/2021overs elements not covered in my initial note. Subjective: The patient was reviewed on telehealth rounds in the evening of 02/01/2021 with [place] APPIAH due to COVID-19 pandemic, discussed and reviewed the chart. The patient slept 7-1/2 hours previous night. The patient remains confused, wandering up and down the hallway, redirectable getting into other patients rooms, not aggressive. Review of Systems: She is unable to answer but vision is poor. Ambulation impaired. No CV, , pulmonary, ENT system symptoms on review. Mental Status Exam: The patient is oriented to herself. Insight and judgment, recent and remote memory, attention and concentration, fund of knowledge is poor consistent with her diagnoses. Laboratory Data: Reviewed. Impression: Major neurocognitive disorder Alzheimer vascular with delusion, depression, and behavioral disturbance. Anxiety disorder unspecified. Impulse control disorder unspecified. Plan: No change from initial note. Assessment: Vital Signs/I&O: Vital Signs Date Time Temp Pulse Resp B/P (MAP) Pulse Ox O2 Delivery O2 Flow Rate FiO2 02/04/21 15:25 97.5 81 18 112/71 (85) 97 Room Air I & O 02/03/21 02/03/21 02/04/21 15:00 23:00 07:00 Intake Total 600 ml 360 ml Balance 600 ml 360 ml Current Medications: Meds: Current Medications Medications (Trade) Dose Ordered Sig/Brianne Route PRN Reason Start Time Stop Time Status Last Admin Dose Admin Lorazepam (Ativan) 1 mg STK-MED ONCE .ROUTE 12/02/20 14:25 12/02/20 14:25 DC Lorazepam (Ativan) 1 mg 1X ONCE PO 12/02/20 14:30 12/02/20 14:36 DC 12/02/20 14:31 Potassium/ Phosphorus/Sodium (Phos-Nak) 1 pkt 1X ONCE PO 12/02/20 15:00 12/02/20 15:01 Cancel Potassium Bicarbonate (Potassium Effervescent Tablet) 20 meq STK-MED ONCE .ROUTE 12/02/20 14:56 12/02/20 14:57 DC Potassium Bicarbonate (Potassium Effervescent Tablet) 20 meq 1X ONCE PO 12/02/20 15:00 12/02/20 15:01 DC 12/02/20 15:00 Acetaminophen (Tylenol) 650 mg PRN Q6HRS PRN PO MILD PAIN / TEMP > 100.3'F 12/02/20 15:45 01/20/21 19:51 Multi-Ingredient Ointment (Analgesic [place]) 1 itz PRN QID PRN TP MUSCLE PAIN 12/02/20 15:45 02/04/21 17:26 DC Al Hydroxide/Mg Hydroxide (Mylanta Plus Xs) 15 ml PRN AFTMEALHC PRN PO DYSPEPSIA 12/02/20 15:45 Magnesium Hydroxide (Milk Of Magnesia) 2,400 mg PRN QHS PRN PO CONSTIPATION 12/02/20 15:45 12/03/20 16:29 Lisinopril (Prinivil) 10 mg DAILY PO 12/03/20 09:00 02/04/21 08:30 Multivitamins/ Calcium (Thera-M Plus) 1 tab DAILY PO 12/03/20 09:00 02/04/21 08:30 Olanzapine (ZyPREXA ZYDIS) 2.5 mg PRN Q2HRS PRN PO PSYCHOSIS 12/02/20 17:00 02/02/21 13:07 Potassium Chloride (Klor-Con) 20 meq DAILYWBKFT PO 12/04/20 08:00 02/04/21 08:29 Sertraline HCl (Zoloft) 25 mg DAILY PO 12/04/20 09:00 12/06/20 21:00 DC 12/06/20 08:17 Sertraline HCl (Zoloft) 50 mg DAILY PO 12/07/20 09:00 02/04/21 08:30 Quetiapine Fumarate (SEROquel) 12.5 mg 0900 PO 12/09/20 09:00 12/10/20 16:51 DC 12/10/20 09:00 Quetiapine Fumarate (SEROquel) 12.5 mg ONCE ONCE PO 12/08/20 17:15 12/08/20 17:16 DC 12/08/20 17:15 Quetiapine Fumarate (SEROquel) 12.5 mg 1700 PO 12/09/20 18:00 01/02/21 11:54 DC 01/01/21 17:00 Quetiapine Fumarate (SEROquel) 25 mg 0900 PO 12/11/20 09:00 02/04/21 08:30 Divalproex Sodium (Depakote Sprinkles) 125 mg BID PO 12/12/20 21:00 12/13/20 10:16 DC 12/13/20 08:35 Trazodone HCl (Desyrel) 50 mg PRN QHS PRN PO INSOMNIA 12/13/20 00:30 02/04/21 19:55 Divalproex Sodium (Depakote Sprinkles) 125 mg 0900,1700 PO 12/13/20 17:00 12/13/20 17:49 DC 12/13/20 16:35 Valproic Acid (Depakene) 125 mg 0900,1700 PO 12/14/20 09:00 12/17/20 15:35 DC 12/17/20 08:39 Valproic Acid (Depakene) 125 mg [id number] PO 12/17/20 21:00 12/23/20 16:57 DC 12/23/20 14:05 Valproic Acid (Depakene) 125 mg QID PO 12/23/20 17:00 01/02/21 11:54 DC 01/02/21 08:35 Hydroxyzine HCl (Atarax) 10 mg PRN Q2HR PRN PO ITCHING 12/29/20 20:15 01/31/21 20:20 Quetiapine Fumarate (SEROquel) 25 mg 1700 PO 01/02/21 17:00 02/04/21 17:28 Valproic Acid (Depakene) 125 mg 1300,1700 PO 01/02/21 13:00 01/24/21 18:13 DC 01/24/21 16:26 Quetiapine Fumarate (SEROquel) 12.5 mg 1200 PO 01/02/21 12:00 02/04/21 13:07 Valproic Acid (Depakene) 250 mg 0900,2100 PO 01/02/21 21:00 01/24/21 18:13 DC 01/24/21 08:20 Oxycodone/ Acetaminophen (Percocet 7.5/ 325) 1 tab PRN Q6HRS PRN PO MOD-SEV PAIN 01/13/21 16:45 01/21/21 18:29 DC Lidocaine (Lidoderm) 2 patch DAILY TD 01/22/21 09:00 02/02/21 18:41 DC 02/02/21 08:18 Miscellaneous (Lidoderm Patch Removal) 1 ea QHS MC 01/22/21 21:00 02/04/21 19:55 Valproic Acid (Depakene) 125 mg 1300,1700,2100 PO 01/24/21 21:00 02/04/21 19:55 Valproic Acid (Depakene) 250 mg 0900 PO 01/25/21 09:00 02/04/21 08:30 Lidocaine (Lidoderm) 2 patch PRN DAILY PRN TD MUSCLE PAIN 02/02/21 18:45 I have reviewed the current psychotropics carefully including drug interactions. Risk benefit ratio favors no change other than as noted in my dictated progress note. Diagnosis: Problems: (1) Major neurocognitive disorder (2) Impulse control disorder, unspecified (3) Anxiety disorder, unspecified (4) Dementia, vascular, with depression (5) Dementia, vascular, with delusions (6) Dementia in Alzheimer's disease with depression (7) Dementia in Alzheimer's disease with delusions (8) Dementia of the Alzheimer's type with early onset with behavioral disturbance EMILY CHARLES MD Feb 04, 2021 22:08
--- NOTE | 2021-02-04 22:20 | PDOC ---
Exam Note: Earle Note: This note is a late entry for 02/02/2021overs elements not covered in my initial note. Subjective: The patient was seen on video telehealth services in the evening of 02/02/2021 with Chuck APPIAH due to COVID-19 pandemic, discussed and reviewed the chart. The patient slept 7 hours previous night. The patient has been confused, wanders the hallways. Review of Systems: Ambulation impaired. No CV, , pulmonary, ENT system symptoms on review. Reliability poor. Mental Status Exam: The patient is oriented to herself. Insight and judgment, recent and remote memory, attention and concentration, fund of knowledge is poor consistent with her diagnoses. Laboratory Data: Reviewed. Impression: Major neurocognitive disorder Alzheimer vascular with delusion, depression, and behavioral disturbance. Anxiety disorder unspecified. Impulse control disorder unspecified. Plan: No change from initial note. Assessment: Vital Signs/I&O: Vital Signs Date Time Temp Pulse Resp B/P (MAP) Pulse Ox O2 Delivery O2 Flow Rate FiO2 02/04/21 15:25 97.5 81 18 112/71 (85) 97 Room Air I & O 02/03/21 02/03/21 02/04/21 15:00 23:00 07:00 Intake Total 600 ml 360 ml Balance 600 ml 360 ml Current Medications: Meds: Current Medications Medications (Trade) Dose Ordered Sig/Brianne Route PRN Reason Start Time Stop Time Status Last Admin Dose Admin Lorazepam (Ativan) 1 mg STK-MED ONCE .ROUTE 12/02/20 14:25 12/02/20 14:25 DC Lorazepam (Ativan) 1 mg 1X ONCE PO 12/02/20 14:30 12/02/20 14:36 DC 12/02/20 14:31 Potassium/ Phosphorus/Sodium (Phos-Nak) 1 pkt 1X ONCE PO 12/02/20 15:00 12/02/20 15:01 Cancel Potassium Bicarbonate (Potassium Effervescent Tablet) 20 meq STK-MED ONCE .ROUTE 12/02/20 14:56 12/02/20 14:57 DC Potassium Bicarbonate (Potassium Effervescent Tablet) 20 meq 1X ONCE PO 12/02/20 15:00 12/02/20 15:01 DC 12/02/20 15:00 Acetaminophen (Tylenol) 650 mg PRN Q6HRS PRN PO MILD PAIN / TEMP > 100.3'F 12/02/20 15:45 01/20/21 19:51 Multi-Ingredient Ointment (Analgesic [place]) 1 itz PRN QID PRN TP MUSCLE PAIN 12/02/20 15:45 02/04/21 17:26 DC Al Hydroxide/Mg Hydroxide (Mylanta Plus Xs) 15 ml PRN AFTMEALHC PRN PO DYSPEPSIA 12/02/20 15:45 Magnesium Hydroxide (Milk Of Magnesia) 2,400 mg PRN QHS PRN PO CONSTIPATION 12/02/20 15:45 12/03/20 16:29 Lisinopril (Prinivil) 10 mg DAILY PO 12/03/20 09:00 02/04/21 08:30 Multivitamins/ Calcium (Thera-M Plus) 1 tab DAILY PO 12/03/20 09:00 02/04/21 08:30 Olanzapine (ZyPREXA ZYDIS) 2.5 mg PRN Q2HRS PRN PO PSYCHOSIS 12/02/20 17:00 02/02/21 13:07 Potassium Chloride (Klor-Con) 20 meq DAILYWBKFT PO 12/04/20 08:00 02/04/21 08:29 Sertraline HCl (Zoloft) 25 mg DAILY PO 12/04/20 09:00 12/06/20 21:00 DC 12/06/20 08:17 Sertraline HCl (Zoloft) 50 mg DAILY PO 12/07/20 09:00 02/04/21 08:30 Quetiapine Fumarate (SEROquel) 12.5 mg 0900 PO 12/09/20 09:00 12/10/20 16:51 DC 12/10/20 09:00 Quetiapine Fumarate (SEROquel) 12.5 mg ONCE ONCE PO 12/08/20 17:15 12/08/20 17:16 DC 12/08/20 17:15 Quetiapine Fumarate (SEROquel) 12.5 mg 1700 PO 12/09/20 18:00 01/02/21 11:54 DC 01/01/21 17:00 Quetiapine Fumarate (SEROquel) 25 mg 0900 PO 12/11/20 09:00 02/04/21 08:30 Divalproex Sodium (Depakote Sprinkles) 125 mg BID PO 12/12/20 21:00 12/13/20 10:16 DC 12/13/20 08:35 Trazodone HCl (Desyrel) 50 mg PRN QHS PRN PO INSOMNIA 12/13/20 00:30 02/04/21 19:55 Divalproex Sodium (Depakote Sprinkles) 125 mg 0900,1700 PO 12/13/20 17:00 12/13/20 17:49 DC 12/13/20 16:35 Valproic Acid (Depakene) 125 mg 0900,1700 PO 12/14/20 09:00 12/17/20 15:35 DC 12/17/20 08:39 Valproic Acid (Depakene) 125 mg [id number] PO 12/17/20 21:00 12/23/20 16:57 DC 12/23/20 14:05 Valproic Acid (Depakene) 125 mg QID PO 12/23/20 17:00 01/02/21 11:54 DC 01/02/21 08:35 Hydroxyzine HCl (Atarax) 10 mg PRN Q2HR PRN PO ITCHING 12/29/20 20:15 01/31/21 20:20 Quetiapine Fumarate (SEROquel) 25 mg 1700 PO 01/02/21 17:00 02/04/21 17:28 Valproic Acid (Depakene) 125 mg 1300,1700 PO 01/02/21 13:00 01/24/21 18:13 DC 01/24/21 16:26 Quetiapine Fumarate (SEROquel) 12.5 mg 1200 PO 01/02/21 12:00 02/04/21 13:07 Valproic Acid (Depakene) 250 mg 0900,2100 PO 01/02/21 21:00 01/24/21 18:13 DC 01/24/21 08:20 Oxycodone/ Acetaminophen (Percocet 7.5/ 325) 1 tab PRN Q6HRS PRN PO MOD-SEV PAIN 01/13/21 16:45 01/21/21 18:29 DC Lidocaine (Lidoderm) 2 patch DAILY TD 01/22/21 09:00 02/02/21 18:41 DC 02/02/21 08:18 Miscellaneous (Lidoderm Patch Removal) 1 ea QHS MC 01/22/21 21:00 02/04/21 19:55 Valproic Acid (Depakene) 125 mg 1300,1700,2100 PO 01/24/21 21:00 02/04/21 19:55 Valproic Acid (Depakene) 250 mg 0900 PO 01/25/21 09:00 02/04/21 08:30 Lidocaine (Lidoderm) 2 patch PRN DAILY PRN TD MUSCLE PAIN 02/02/21 18:45 I have reviewed the current psychotropics carefully including drug interactions. Risk benefit ratio favors no change other than as noted in my dictated progress note. 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
--- NOTE | 2021-02-04 22:35 | PDOC ---
Exam Note: Earle Note: Please also refer to the separate dictated note~for this date of service dictated separately.~Patient seen individually. Discussed the patient with Nursing staff reviewed the chart.~Reviewed interim history and current functioning. Reviewed vital signs,~Labs/ Radiology~and current medications noted below. Continue current treatment with the changes noted in the dictated addendum note Assessment: Vital Signs/I&O: Vital Signs Date Time Temp Pulse Resp B/P (MAP) Pulse Ox O2 Delivery O2 Flow Rate FiO2 02/04/21 15:25 97.5 81 18 112/71 (85) 97 Room Air I & O 02/03/21 02/03/21 02/04/21 15:00 23:00 07:00 Intake Total 600 ml 360 ml Balance 600 ml 360 ml Current Medications: Meds: Current Medications Medications (Trade) Dose Ordered Sig/Brianne Route PRN Reason Start Time Stop Time Status Last Admin Dose Admin Lorazepam (Ativan) 1 mg STK-MED ONCE .ROUTE 12/02/20 14:25 12/02/20 14:25 DC Lorazepam (Ativan) 1 mg 1X ONCE PO 12/02/20 14:30 12/02/20 14:36 DC 12/02/20 14:31 Potassium/ Phosphorus/Sodium (Phos-Nak) 1 pkt 1X ONCE PO 12/02/20 15:00 12/02/20 15:01 Cancel Potassium Bicarbonate (Potassium Effervescent Tablet) 20 meq STK-MED ONCE .ROUTE 12/02/20 14:56 12/02/20 14:57 DC Potassium Bicarbonate (Potassium Effervescent Tablet) 20 meq 1X ONCE PO 12/02/20 15:00 12/02/20 15:01 DC 12/02/20 15:00 Acetaminophen (Tylenol) 650 mg PRN Q6HRS PRN PO MILD PAIN / TEMP > 100.3'F 12/02/20 15:45 01/20/21 19:51 Multi-Ingredient Ointment (Analgesic [place]) 1 itz PRN QID PRN TP MUSCLE PAIN 12/02/20 15:45 02/04/21 17:26 DC Al Hydroxide/Mg Hydroxide (Mylanta Plus Xs) 15 ml PRN AFTMEALHC PRN PO DYSPEPSIA 12/02/20 15:45 Magnesium Hydroxide (Milk Of Magnesia) 2,400 mg PRN QHS PRN PO CONSTIPATION 12/02/20 15:45 12/03/20 16:29 Lisinopril (Prinivil) 10 mg DAILY PO 12/03/20 09:00 02/04/21 08:30 Multivitamins/ Calcium (Thera-M Plus) 1 tab DAILY PO 12/03/20 09:00 02/04/21 08:30 Olanzapine (ZyPREXA ZYDIS) 2.5 mg PRN Q2HRS PRN PO PSYCHOSIS 12/02/20 17:00 02/02/21 13:07 Potassium Chloride (Klor-Con) 20 meq DAILYWBKFT PO 12/04/20 08:00 02/04/21 08:29 Sertraline HCl (Zoloft) 25 mg DAILY PO 12/04/20 09:00 12/06/20 21:00 DC 12/06/20 08:17 Sertraline HCl (Zoloft) 50 mg DAILY PO 12/07/20 09:00 02/04/21 08:30 Quetiapine Fumarate (SEROquel) 12.5 mg 0900 PO 12/09/20 09:00 12/10/20 16:51 DC 12/10/20 09:00 Quetiapine Fumarate (SEROquel) 12.5 mg ONCE ONCE PO 12/08/20 17:15 12/08/20 17:16 DC 12/08/20 17:15 Quetiapine Fumarate (SEROquel) 12.5 mg 1700 PO 12/09/20 18:00 01/02/21 11:54 DC 01/01/21 17:00 Quetiapine Fumarate (SEROquel) 25 mg 0900 PO 12/11/20 09:00 02/04/21 08:30 Divalproex Sodium (Depakote Sprinkles) 125 mg BID PO 12/12/20 21:00 12/13/20 10:16 DC 12/13/20 08:35 Trazodone HCl (Desyrel) 50 mg PRN QHS PRN PO INSOMNIA 12/13/20 00:30 02/04/21 19:55 Divalproex Sodium (Depakote Sprinkles) 125 mg 0900,1700 PO 12/13/20 17:00 12/13/20 17:49 DC 12/13/20 16:35 Valproic Acid (Depakene) 125 mg 0900,1700 PO 12/14/20 09:00 12/17/20 15:35 DC 12/17/20 08:39 Valproic Acid (Depakene) 125 mg [id number] PO 12/17/20 21:00 12/23/20 16:57 DC 12/23/20 14:05 Valproic Acid (Depakene) 125 mg QID PO 12/23/20 17:00 01/02/21 11:54 DC 01/02/21 08:35 Hydroxyzine HCl (Atarax) 10 mg PRN Q2HR PRN PO ITCHING 12/29/20 20:15 01/31/21 20:20 Quetiapine Fumarate (SEROquel) 25 mg 1700 PO 01/02/21 17:00 02/04/21 17:28 Valproic Acid (Depakene) 125 mg 1300,1700 PO 01/02/21 13:00 01/24/21 18:13 DC 01/24/21 16:26 Quetiapine Fumarate (SEROquel) 12.5 mg 1200 PO 01/02/21 12:00 02/04/21 13:07 Valproic Acid (Depakene) 250 mg 0900,2100 PO 01/02/21 21:00 01/24/21 18:13 DC 01/24/21 08:20 Oxycodone/ Acetaminophen (Percocet 7.5/ 325) 1 tab PRN Q6HRS PRN PO MOD-SEV PAIN 01/13/21 16:45 01/21/21 18:29 DC Lidocaine (Lidoderm) 2 patch DAILY TD 01/22/21 09:00 02/02/21 18:41 DC 02/02/21 08:18 Miscellaneous (Lidoderm Patch Removal) 1 ea QHS MC 01/22/21 21:00 02/04/21 19:55 Valproic Acid (Depakene) 125 mg 1300,1700,2100 PO 01/24/21 21:00 02/04/21 19:55 Valproic Acid (Depakene) 250 mg 0900 PO 01/25/21 09:00 02/04/21 08:30 Lidocaine (Lidoderm) 2 patch PRN DAILY PRN TD MUSCLE PAIN 02/02/21 18:45 I have reviewed the current psychotropics carefully including drug interactions. Risk benefit ratio favors no change other than as noted in my dictated progress note. Diagnosis: Problems: (1) Major neurocognitive disorder (2) Impulse control disorder, unspecified (3) Anxiety disorder, unspecified (4) Dementia, vascular, with depression (5) Dementia, vascular, with delusions (6) Dementia in Alzheimer's disease with depression (7) Dementia in Alzheimer's disease with delusions (8) Dementia of the Alzheimer's type with early onset with behavioral disturbance EMILY CHARLES MD Feb 04, 2021 22:35
--- NOTE | 2021-02-04 22:35 | PDOC ---
Exam Note: Earle Note: This note is a late entry for 02/03/2021 covers elements not covered in my initial note. Subjective: The patient was seen face to face in the evening of 02/03/2021 with Chuck APPIAH, discussed and reviewed the chart. The patient slept 7-3/4 hours previous night. The patient remains confused, busy, redirectable. Review of Systems: Ambulation impaired. No CV, , pulmonary, ENT system symptoms on review. Reliability poor. She has poor vision. Mental Status Exam: The patient is oriented to herself. Insight and judgment, recent and remote memory, attention and concentration, fund of knowledge is poor consistent with her diagnoses. Laboratory Data: Reviewed. Impression: Major neurocognitive disorder Alzheimer vascular with delusion, depression, and behavioral disturbance. Anxiety disorder unspecified. Impulse control disorder unspecified. Plan: No change from initial note. Assessment: Vital Signs/I&O: Vital Signs Date Time Temp Pulse Resp B/P (MAP) Pulse Ox O2 Delivery O2 Flow Rate FiO2 02/04/21 15:25 97.5 81 18 112/71 (85) 97 Room Air I & O 02/03/21 02/03/21 02/04/21 15:00 23:00 07:00 Intake Total 600 ml 360 ml Balance 600 ml 360 ml Current Medications: Meds: Current Medications Medications (Trade) Dose Ordered Sig/Brianne Route PRN Reason Start Time Stop Time Status Last Admin Dose Admin Lorazepam (Ativan) 1 mg STK-MED ONCE .ROUTE 12/02/20 14:25 12/02/20 14:25 DC Lorazepam (Ativan) 1 mg 1X ONCE PO 12/02/20 14:30 12/02/20 14:36 DC 12/02/20 14:31 Potassium/ Phosphorus/Sodium (Phos-Nak) 1 pkt 1X ONCE PO 12/02/20 15:00 12/02/20 15:01 Cancel Potassium Bicarbonate (Potassium Effervescent Tablet) 20 meq STK-MED ONCE .ROUTE 12/02/20 14:56 12/02/20 14:57 DC Potassium Bicarbonate (Potassium Effervescent Tablet) 20 meq 1X ONCE PO 12/02/20 15:00 12/02/20 15:01 DC 12/02/20 15:00 Acetaminophen (Tylenol) 650 mg PRN Q6HRS PRN PO MILD PAIN / TEMP > 100.3'F 12/02/20 15:45 01/20/21 19:51 Multi-Ingredient Ointment (Analgesic [place]) 1 itz PRN QID PRN TP MUSCLE PAIN 12/02/20 15:45 02/04/21 17:26 DC Al Hydroxide/Mg Hydroxide (Mylanta Plus Xs) 15 ml PRN AFTMEALHC PRN PO DYSPEPSIA 12/02/20 15:45 Magnesium Hydroxide (Milk Of Magnesia) 2,400 mg PRN QHS PRN PO CONSTIPATION 12/02/20 15:45 12/03/20 16:29 Lisinopril (Prinivil) 10 mg DAILY PO 12/03/20 09:00 02/04/21 08:30 Multivitamins/ Calcium (Thera-M Plus) 1 tab DAILY PO 12/03/20 09:00 02/04/21 08:30 Olanzapine (ZyPREXA ZYDIS) 2.5 mg PRN Q2HRS PRN PO PSYCHOSIS 12/02/20 17:00 02/02/21 13:07 Potassium Chloride (Klor-Con) 20 meq DAILYWBKFT PO 12/04/20 08:00 02/04/21 08:29 Sertraline HCl (Zoloft) 25 mg DAILY PO 12/04/20 09:00 12/06/20 21:00 DC 12/06/20 08:17 Sertraline HCl (Zoloft) 50 mg DAILY PO 12/07/20 09:00 02/04/21 08:30 Quetiapine Fumarate (SEROquel) 12.5 mg 0900 PO 12/09/20 09:00 12/10/20 16:51 DC 12/10/20 09:00 Quetiapine Fumarate (SEROquel) 12.5 mg ONCE ONCE PO 12/08/20 17:15 12/08/20 17:16 DC 12/08/20 17:15 Quetiapine Fumarate (SEROquel) 12.5 mg 1700 PO 12/09/20 18:00 01/02/21 11:54 DC 01/01/21 17:00 Quetiapine Fumarate (SEROquel) 25 mg 0900 PO 12/11/20 09:00 02/04/21 08:30 Divalproex Sodium (Depakote Sprinkles) 125 mg BID PO 12/12/20 21:00 12/13/20 10:16 DC 12/13/20 08:35 Trazodone HCl (Desyrel) 50 mg PRN QHS PRN PO INSOMNIA 12/13/20 00:30 02/04/21 19:55 Divalproex Sodium (Depakote Sprinkles) 125 mg 0900,1700 PO 12/13/20 17:00 12/13/20 17:49 DC 12/13/20 16:35 Valproic Acid (Depakene) 125 mg 0900,1700 PO 12/14/20 09:00 12/17/20 15:35 DC 12/17/20 08:39 Valproic Acid (Depakene) 125 mg [id number] PO 12/17/20 21:00 12/23/20 16:57 DC 12/23/20 14:05 Valproic Acid (Depakene) 125 mg QID PO 12/23/20 17:00 01/02/21 11:54 DC 01/02/21 08:35 Hydroxyzine HCl (Atarax) 10 mg PRN Q2HR PRN PO ITCHING 12/29/20 20:15 01/31/21 20:20 Quetiapine Fumarate (SEROquel) 25 mg 1700 PO 01/02/21 17:00 02/04/21 17:28 Valproic Acid (Depakene) 125 mg 1300,1700 PO 01/02/21 13:00 01/24/21 18:13 DC 01/24/21 16:26 Quetiapine Fumarate (SEROquel) 12.5 mg 1200 PO 01/02/21 12:00 02/04/21 13:07 Valproic Acid (Depakene) 250 mg 0900,2100 PO 01/02/21 21:00 01/24/21 18:13 DC 01/24/21 08:20 Oxycodone/ Acetaminophen (Percocet 7.5/ 325) 1 tab PRN Q6HRS PRN PO MOD-SEV PAIN 01/13/21 16:45 01/21/21 18:29 DC Lidocaine (Lidoderm) 2 patch DAILY TD 01/22/21 09:00 02/02/21 18:41 DC 02/02/21 08:18 Miscellaneous (Lidoderm Patch Removal) 1 ea QHS MC 01/22/21 21:00 02/04/21 19:55 Valproic Acid (Depakene) 125 mg 1300,1700,2100 PO 01/24/21 21:00 02/04/21 19:55 Valproic Acid (Depakene) 250 mg 0900 PO 01/25/21 09:00 02/04/21 08:30 Lidocaine (Lidoderm) 2 patch PRN DAILY PRN TD MUSCLE PAIN 02/02/21 18:45 I have reviewed the current psychotropics carefully including drug interactions. Risk benefit ratio favors no change other than as noted in my dictated progress note. Diagnosis: Problems: (1) Major neurocognitive disorder (2) Impulse control disorder, unspecified (3) Anxiety disorder, unspecified (4) Dementia, vascular, with depression (5) Dementia, vascular, with delusions (6) Dementia in Alzheimer's disease with depression (7) Dementia in Alzheimer's disease with delusions (8) Dementia of the Alzheimer's type with early onset with behavioral disturbance EMILY CHARLES MD Feb 04, 2021 22:35
[2021-02-05 05:37] VITALS: BP 106/47
--- NOTE | 2021-02-05 06:39 | PDOC ---
Exam Note: Earle Note: This note is a late entry for 02/04/2021 covers elements not covered in my initial note. Subjective: The patient was seen face to face in the evening of 02/04/2021 with Yamilex APPIAH, discussed and reviewed the chart. The patient slept 8 hours previous night. She has been eating about 50% of her meals. I met with her in the hallway outside her room. She was wandering aimlessly and wandered into male patients rooms and had redirected her back to her room and she was quite oblivious about this. Review of Systems: Ambulation impaired. No CV, , pulmonary, ENT system symptoms on review. Reliability poor. Mental Status Exam: The patient is oriented to herself. Insight and judgment, recent and remote memory, attention and concentration, fund of knowledge is poor consistent with her diagnoses. Laboratory Data: Reviewed. Impression: Major neurocognitive disorder Alzheimer vascular with delusion, depression, and behavioral disturbance. Anxiety disorder unspecified. Impulse control disorder unspecified. Plan: No change from initial note. Assessment: Vital Signs/I&O: Vital Signs Date Time Temp Pulse Resp B/P (MAP) Pulse Ox O2 Delivery O2 Flow Rate FiO2 02/05/21 05:37 96.9 64 16 106/47 (66) 97 Room Air I & O 02/04/21 02/04/21 02/05/21 15:00 23:00 07:00 Intake Total 520 ml 360 ml Balance 520 ml 360 ml Current Medications: Meds: Current Medications Medications (Trade) Dose Ordered Sig/Brianne Route PRN Reason Start Time Stop Time Status Last Admin Dose Admin Lorazepam (Ativan) 1 mg STK-MED ONCE .ROUTE 12/02/20 14:25 12/02/20 14:25 DC Lorazepam (Ativan) 1 mg 1X ONCE PO 12/02/20 14:30 12/02/20 14:36 DC 12/02/20 14:31 Potassium/ Phosphorus/Sodium (Phos-Nak) 1 pkt 1X ONCE PO 12/02/20 15:00 12/02/20 15:01 Cancel Potassium Bicarbonate (Potassium Effervescent Tablet) 20 meq STK-MED ONCE .ROUTE 12/02/20 14:56 12/02/20 14:57 DC Potassium Bicarbonate (Potassium Effervescent Tablet) 20 meq 1X ONCE PO 12/02/20 15:00 12/02/20 15:01 DC 12/02/20 15:00 Acetaminophen (Tylenol) 650 mg PRN Q6HRS PRN PO MILD PAIN / TEMP > 100.3'F 12/02/20 15:45 01/20/21 19:51 Multi-Ingredient Ointment (Analgesic [place]) 1 itz PRN QID PRN TP MUSCLE PAIN 12/02/20 15:45 02/04/21 17:26 DC Al Hydroxide/Mg Hydroxide (Mylanta Plus Xs) 15 ml PRN AFTMEALHC PRN PO DYSPEPSIA 12/02/20 15:45 Magnesium Hydroxide (Milk Of Magnesia) 2,400 mg PRN QHS PRN PO CONSTIPATION 12/02/20 15:45 12/03/20 16:29 Lisinopril (Prinivil) 10 mg DAILY PO 12/03/20 09:00 02/04/21 08:30 Multivitamins/ Calcium (Thera-M Plus) 1 tab DAILY PO 12/03/20 09:00 02/04/21 08:30 Olanzapine (ZyPREXA ZYDIS) 2.5 mg PRN Q2HRS PRN PO PSYCHOSIS 12/02/20 17:00 02/02/21 13:07 Potassium Chloride (Klor-Con) 20 meq DAILYWBKFT PO 12/04/20 08:00 02/04/21 08:29 Sertraline HCl (Zoloft) 25 mg DAILY PO 12/04/20 09:00 12/06/20 21:00 DC 12/06/20 08:17 Sertraline HCl (Zoloft) 50 mg DAILY PO 12/07/20 09:00 02/04/21 08:30 Quetiapine Fumarate (SEROquel) 12.5 mg 0900 PO 12/09/20 09:00 12/10/20 16:51 DC 12/10/20 09:00 Quetiapine Fumarate (SEROquel) 12.5 mg ONCE ONCE PO 12/08/20 17:15 12/08/20 17:16 DC 12/08/20 17:15 Quetiapine Fumarate (SEROquel) 12.5 mg 1700 PO 12/09/20 18:00 01/02/21 11:54 DC 01/01/21 17:00 Quetiapine Fumarate (SEROquel) 25 mg 0900 PO 12/11/20 09:00 02/04/21 08:30 Divalproex Sodium (Depakote Sprinkles) 125 mg BID PO 12/12/20 21:00 12/13/20 10:16 DC 12/13/20 08:35 Trazodone HCl (Desyrel) 50 mg PRN QHS PRN PO INSOMNIA 12/13/20 00:30 02/04/21 19:55 Divalproex Sodium (Depakote Sprinkles) 125 mg 0900,1700 PO 12/13/20 17:00 12/13/20 17:49 DC 12/13/20 16:35 Valproic Acid (Depakene) 125 mg 0900,1700 PO 12/14/20 09:00 12/17/20 15:35 DC 12/17/20 08:39 Valproic Acid (Depakene) 125 mg [id number] PO 12/17/20 21:00 12/23/20 16:57 DC 12/23/20 14:05 Valproic Acid (Depakene) 125 mg QID PO 12/23/20 17:00 01/02/21 11:54 DC 01/02/21 08:35 Hydroxyzine HCl (Atarax) 10 mg PRN Q2HR PRN PO ITCHING 12/29/20 20:15 01/31/21 20:20 Quetiapine Fumarate (SEROquel) 25 mg 1700 PO 01/02/21 17:00 02/04/21 17:28 Valproic Acid (Depakene) 125 mg 1300,1700 PO 01/02/21 13:00 01/24/21 18:13 DC 01/24/21 16:26 Quetiapine Fumarate (SEROquel) 12.5 mg 1200 PO 01/02/21 12:00 02/04/21 13:07 Valproic Acid (Depakene) 250 mg 0900,2100 PO 01/02/21 21:00 01/24/21 18:13 DC 01/24/21 08:20 Oxycodone/ Acetaminophen (Percocet 7.5/ 325) 1 tab PRN Q6HRS PRN PO MOD-SEV PAIN 01/13/21 16:45 01/21/21 18:29 DC Lidocaine (Lidoderm) 2 patch DAILY TD 01/22/21 09:00 02/02/21 18:41 DC 02/02/21 08:18 Miscellaneous (Lidoderm Patch Removal) 1 ea QHS MC 01/22/21 21:00 02/04/21 19:55 Valproic Acid (Depakene) 125 mg 1300,1700,2100 PO 01/24/21 21:00 02/04/21 19:55 Valproic Acid (Depakene) 250 mg 0900 PO 01/25/21 09:00 02/04/21 08:30 Lidocaine (Lidoderm) 2 patch PRN DAILY PRN TD MUSCLE PAIN 02/02/21 18:45 I have reviewed the current psychotropics carefully including drug interactions. Risk benefit ratio favors no change other than as noted in my dictated progress note. Diagnosis: Problems: (1) Major neurocognitive disorder (2) Impulse control disorder, unspecified (3) Anxiety disorder, unspecified (4) Dementia, vascular, with depression (5) Dementia, vascular, with delusions (6) Dementia in Alzheimer's disease with depression (7) Dementia in Alzheimer's disease with delusions (8) Dementia of the Alzheimer's type with early onset with behavioral disturbance EMILY CHARLES MD Feb 05, 2021 06:39
[2021-02-05] MEDS: POTASSIUM CHLORIDE 20 MEQ TABLET.ER. PO SCH (08:18)
[2021-02-05] MEDS: VALPROATE ACID 250 MG/5 ML ORAL SOLUTION PO SCH ×4 (08:19→19:45)
[2021-02-05] MEDS: QUEtiapine 25 MG TABLET. PO SCH ×3 (08:19→17:10)
[2021-02-05] MEDS: SERTRALINE 50 MG TABLET. PO SCH (08:19)
[2021-02-05] MEDS: MULTIVITAMIN with MINERAL TABLET. PO SCH (08:19)
[2021-02-05] MEDS: LISINOPRIL 10 MG TABLET PO SCH (08:22)
[2021-02-05 15:25] VITALS: BP 106/57
[2021-02-05] MEDS: traZODone 50 MG TABLET. PO PRN (19:45)
[2021-02-05] MEDS: PATCH REMOVAL. MC SCH (19:46)
--- NOTE | 2021-02-05 22:03 | PDOC ---
Exam Note: Earle Note: Please also refer to the separate dictated note~for this date of service dictated separately.~Patient seen individually. Discussed the patient with Nursing staff reviewed the chart.~Reviewed interim history and current functioning. Reviewed vital signs,~Labs/ Radiology~and current medications noted below. Continue current treatment with the changes noted in the dictated addendum note Assessment: Vital Signs/I&O: Vital Signs Date Time Temp Pulse Resp B/P (MAP) Pulse Ox O2 Delivery O2 Flow Rate FiO2 02/05/21 15:25 97.1 89 20 106/57 (73) 98 02/05/21 05:37 Room Air I & O 02/04/21 02/04/21 02/05/21 15:00 23:00 07:00 Intake Total 520 ml 360 ml Balance 520 ml 360 ml Current Medications: Meds: Current Medications Medications (Trade) Dose Ordered Sig/Brianne Route PRN Reason Start Time Stop Time Status Last Admin Dose Admin Lorazepam (Ativan) 1 mg STK-MED ONCE .ROUTE 12/02/20 14:25 12/02/20 14:25 DC Lorazepam (Ativan) 1 mg 1X ONCE PO 12/02/20 14:30 12/02/20 14:36 DC 12/02/20 14:31 Potassium/ Phosphorus/Sodium (Phos-Nak) 1 pkt 1X ONCE PO 12/02/20 15:00 12/02/20 15:01 Cancel Potassium Bicarbonate (Potassium Effervescent Tablet) 20 meq STK-MED ONCE .ROUTE 12/02/20 14:56 12/02/20 14:57 DC Potassium Bicarbonate (Potassium Effervescent Tablet) 20 meq 1X ONCE PO 12/02/20 15:00 12/02/20 15:01 DC 12/02/20 15:00 Acetaminophen (Tylenol) 650 mg PRN Q6HRS PRN PO MILD PAIN / TEMP > 100.3'F 12/02/20 15:45 01/20/21 19:51 Multi-Ingredient Ointment (Analgesic [place]) 1 itz PRN QID PRN TP MUSCLE PAIN 12/02/20 15:45 02/04/21 17:26 DC Al Hydroxide/Mg Hydroxide (Mylanta Plus Xs) 15 ml PRN AFTMEALHC PRN PO DYSPEPSIA 12/02/20 15:45 Magnesium Hydroxide (Milk Of Magnesia) 2,400 mg PRN QHS PRN PO CONSTIPATION 12/02/20 15:45 12/03/20 16:29 Lisinopril (Prinivil) 10 mg DAILY PO 12/03/20 09:00 02/05/21 08:22 Multivitamins/ Calcium (Thera-M Plus) 1 tab DAILY PO 12/03/20 09:00 02/05/21 08:19 Olanzapine (ZyPREXA ZYDIS) 2.5 mg PRN Q2HRS PRN PO PSYCHOSIS 12/02/20 17:00 02/02/21 13:07 Potassium Chloride (Klor-Con) 20 meq DAILYWBKFT PO 12/04/20 08:00 02/05/21 08:18 Sertraline HCl (Zoloft) 25 mg DAILY PO 12/04/20 09:00 12/06/20 21:00 DC 12/06/20 08:17 Sertraline HCl (Zoloft) 50 mg DAILY PO 12/07/20 09:00 02/05/21 08:19 Quetiapine Fumarate (SEROquel) 12.5 mg 0900 PO 12/09/20 09:00 12/10/20 16:51 DC 12/10/20 09:00 Quetiapine Fumarate (SEROquel) 12.5 mg ONCE ONCE PO 12/08/20 17:15 12/08/20 17:16 DC 12/08/20 17:15 Quetiapine Fumarate (SEROquel) 12.5 mg 1700 PO 12/09/20 18:00 01/02/21 11:54 DC 01/01/21 17:00 Quetiapine Fumarate (SEROquel) 25 mg 0900 PO 12/11/20 09:00 02/05/21 08:19 Divalproex Sodium (Depakote Sprinkles) 125 mg BID PO 12/12/20 21:00 12/13/20 10:16 DC 12/13/20 08:35 Trazodone HCl (Desyrel) 50 mg PRN QHS PRN PO INSOMNIA 12/13/20 00:30 02/05/21 19:45 Divalproex Sodium (Depakote Sprinkles) 125 mg 0900,1700 PO 12/13/20 17:00 12/13/20 17:49 DC 12/13/20 16:35 Valproic Acid (Depakene) 125 mg 0900,1700 PO 12/14/20 09:00 12/17/20 15:35 DC 12/17/20 08:39 Valproic Acid (Depakene) 125 mg [id number] PO 12/17/20 21:00 12/23/20 16:57 DC 12/23/20 14:05 Valproic Acid (Depakene) 125 mg QID PO 12/23/20 17:00 01/02/21 11:54 DC 01/02/21 08:35 Hydroxyzine HCl (Atarax) 10 mg PRN Q2HR PRN PO ITCHING 12/29/20 20:15 01/31/21 20:20 Quetiapine Fumarate (SEROquel) 25 mg 1700 PO 01/02/21 17:00 02/05/21 17:10 Valproic Acid (Depakene) 125 mg 1300,1700 PO 01/02/21 13:00 01/24/21 18:13 DC 01/24/21 16:26 Quetiapine Fumarate (SEROquel) 12.5 mg 1200 PO 01/02/21 12:00 02/05/21 13:27 Valproic Acid (Depakene) 250 mg 0900,2100 PO 01/02/21 21:00 01/24/21 18:13 DC 01/24/21 08:20 Oxycodone/ Acetaminophen (Percocet 7.5/ 325) 1 tab PRN Q6HRS PRN PO MOD-SEV PAIN 01/13/21 16:45 01/21/21 18:29 DC Lidocaine (Lidoderm) 2 patch DAILY TD 01/22/21 09:00 02/02/21 18:41 DC 02/02/21 08:18 Miscellaneous (Lidoderm Patch Removal) 1 ea QHS MC 01/22/21 21:00 02/05/21 19:46 Valproic Acid (Depakene) 125 mg 1300,1700,2100 PO 01/24/21 21:00 02/05/21 19:45 Valproic Acid (Depakene) 250 mg 0900 PO 01/25/21 09:00 02/05/21 08:19 Lidocaine (Lidoderm) 2 patch PRN DAILY PRN TD MUSCLE PAIN 02/02/21 18:45 I have reviewed the current psychotropics carefully including drug interactions. Risk benefit ratio favors no change other than as noted in my dictated progress note. 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
[2021-02-06 05:18] VITALS: BP 125/78
[2021-02-06] MEDS: QUEtiapine 25 MG TABLET. PO SCH ×3 (08:15→17:54)
[2021-02-06] MEDS: SERTRALINE 50 MG TABLET. PO SCH (08:15)
[2021-02-06] MEDS: LISINOPRIL 10 MG TABLET PO SCH (08:15)
[2021-02-06] MEDS: POTASSIUM CHLORIDE 20 MEQ TABLET.ER. PO SCH (08:15)
[2021-02-06] MEDS: VALPROATE ACID 250 MG/5 ML ORAL SOLUTION PO SCH ×4 (08:16→20:18)
[2021-02-06] MEDS: MULTIVITAMIN with MINERAL TABLET. PO SCH (08:16)
--- NOTE | 2021-02-06 11:41 | TX PLAN ---
Interdisciplinary Tx Plan Admission Information Dec 02, 2020 at 15:25 Legal Status (on Admission): Voluntary DPOA/Guardian Name: Aron Razo Contact Other Contact Name: [facility] Other Contact Verified Code Status: DNR Allergies: Coded Allergies: No Known Drug Allergies (Unverified , 12/02/20) Diagnoses Primary Diagnosis: Major Neurocognitive D/O, Vascular Alzheimers with delusions and depression Reasons for Admission: Aggressive, Sig. Change Sleep, Combative, Confusion/Disoriented, Poor impulse control, Other Problem in Patient's Words: She has declined pretty quickly in the last 3 months. Additional Admission Comments: According to the intake, pt was biting, hitting staff at LT, throwing things, agitated, restless, wandering, attempts to elope, poor sleep, poor intake, throwing cups of water on LTC staff, attempted to elope out of the back door of [facility] ED during medical clearance. Problems Active Problems: restless wandering increased confusion Inactive Problems: medication compliance Pt Strengths/Limitations Ability for [place]: Poor Cognitive Functioning/Ability: Poor Communication Skills/Ability: Poor Financial Resources: Good Insight/Judgement: Poor Intellectual Ability: Poor Physical Health: Fair Social Skills: Fair Stability in Family: Good Stability in School/Work: Poor Verbal Skills: Poor Discharge Criteria Discharge Criteria: No need for close observ., Adequate arrangements @DC, Improved behavior, Improved mood/thought Preliminary Discharge Plan Preliminary DC Plan: Current Living Arrange. Initial D/C Plan Unknown at this time Identified Discharge Needs: Pt may bring pt home; unknown at this time. Currently Utilized Resources Currently Utilized Resources/P: Primary Care Physician Identified Problems/Hx/Goals Objectives/Short-Term Goals Short Term Goals: Dec. Aggression, Dec. Outbursts, Medication Stabilization, Monitor Med Effects, Promote Coping Skill Short Term Goals in Patient's: N/A Interventions/Frequency Staff Interventions/Frequency&: Psychiatrist to assess pt at least 3x per week for medication management. Social Wok to assess pt at least 2x per week to identify barriers to care and discharge planning. Nursing to assess medication effects, behavior modification and complete 15 minute checks. 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 Education: Pt did graduate high school (12th grade); attended [employer] in [place] with her B.A. in Camb[place]ian degree. Community Follow-up Primary Care Physician Mental Health Services Treatment Plan Explained Patient/Health Science Writer had this treatment plan explained to him/her as indicated by the signature below and has been given the opportunity to ask questions and make suggestions: Date: Patient/Health Science Writer Signature: Status Update Update Pt is sleeping roughly 7 hours per night and eating roughly 50% of meals. Pt is continues to be pleasantly confused, wanders the hallways and compliant with medications in drinks. Pt has attended four groups this week with moderate participation in singing, dancing and being interactive with staff and her peers. Pt has placement at [facility] and will discharge on Wednesday; pt will need to be swabbed on Wednesday per facility policy. SW will finalize discharge plans with pt and the facility. HEDY BARRON Feb 06, 2021 11:41
[2021-02-06 16:05] VITALS: BP 124/83
[2021-02-06] MEDS: traZODone 50 MG TABLET. PO PRN (20:18)
[2021-02-06] MEDS: PATCH REMOVAL. MC SCH (20:31)
--- NOTE | 2021-02-06 22:12 | PDOC ---
Exam Note: Earle Note: Please also refer to the separate dictated note~for this date of service dictated separately.~Patient seen individually. Discussed the patient with Nursing staff reviewed the chart.~Reviewed interim history and current functioning. Reviewed vital signs,~Labs/ Radiology~and current medications noted below. Continue current treatment with the changes noted in the dictated addendum note Assessment: Vital Signs/I&O: Vital Signs Date Time Temp Pulse Resp B/P (MAP) Pulse Ox O2 Delivery O2 Flow Rate FiO2 02/06/21 16:05 97.6 88 19 124/83 (97) 95 Room Air I & O 02/05/21 02/05/21 02/06/21 15:00 23:00 07:00 Intake Total 850 ml 490 ml Balance 850 ml 490 ml Current Medications: Meds: Current Medications Medications (Trade) Dose Ordered Sig/Brianne Route PRN Reason Start Time Stop Time Status Last Admin Dose Admin Lorazepam (Ativan) 1 mg STK-MED ONCE .ROUTE 12/02/20 14:25 12/02/20 14:25 DC Lorazepam (Ativan) 1 mg 1X ONCE PO 12/02/20 14:30 12/02/20 14:36 DC 12/02/20 14:31 Potassium/ Phosphorus/Sodium (Phos-Nak) 1 pkt 1X ONCE PO 12/02/20 15:00 12/02/20 15:01 Cancel Potassium Bicarbonate (Potassium Effervescent Tablet) 20 meq STK-MED ONCE .ROUTE 12/02/20 14:56 12/02/20 14:57 DC Potassium Bicarbonate (Potassium Effervescent Tablet) 20 meq 1X ONCE PO 12/02/20 15:00 12/02/20 15:01 DC 12/02/20 15:00 Acetaminophen (Tylenol) 650 mg PRN Q6HRS PRN PO MILD PAIN / TEMP > 100.3'F 12/02/20 15:45 01/20/21 19:51 Multi-Ingredient Ointment (Analgesic [place]) 1 itz PRN QID PRN TP MUSCLE PAIN 12/02/20 15:45 02/04/21 17:26 DC Al Hydroxide/Mg Hydroxide (Mylanta Plus Xs) 15 ml PRN AFTMEALHC PRN PO DYSPEPSIA 12/02/20 15:45 02/06/21 09:19 Magnesium Hydroxide (Milk Of Magnesia) 2,400 mg PRN QHS PRN PO CONSTIPATION 12/02/20 15:45 12/03/20 16:29 Lisinopril (Prinivil) 10 mg DAILY PO 12/03/20 09:00 02/06/21 08:15 Multivitamins/ Calcium (Thera-M Plus) 1 tab DAILY PO 12/03/20 09:00 02/06/21 08:16 Olanzapine (ZyPREXA ZYDIS) 2.5 mg PRN Q2HRS PRN PO PSYCHOSIS 12/02/20 17:00 02/06/21 15:37 Potassium Chloride (Klor-Con) 20 meq DAILYWBKFT PO 12/04/20 08:00 02/06/21 08:15 Sertraline HCl (Zoloft) 25 mg DAILY PO 12/04/20 09:00 12/06/20 21:00 DC 12/06/20 08:17 Sertraline HCl (Zoloft) 50 mg DAILY PO 12/07/20 09:00 02/06/21 08:15 Quetiapine Fumarate (SEROquel) 12.5 mg 0900 PO 12/09/20 09:00 12/10/20 16:51 DC 12/10/20 09:00 Quetiapine Fumarate (SEROquel) 12.5 mg ONCE ONCE PO 12/08/20 17:15 12/08/20 17:16 DC 12/08/20 17:15 Quetiapine Fumarate (SEROquel) 12.5 mg 1700 PO 12/09/20 18:00 01/02/21 11:54 DC 01/01/21 17:00 Quetiapine Fumarate (SEROquel) 25 mg 0900 PO 12/11/20 09:00 02/06/21 08:15 Divalproex Sodium (Depakote Sprinkles) 125 mg BID PO 12/12/20 21:00 12/13/20 10:16 DC 12/13/20 08:35 Trazodone HCl (Desyrel) 50 mg PRN QHS PRN PO INSOMNIA 12/13/20 00:30 02/06/21 20:18 Divalproex Sodium (Depakote Sprinkles) 125 mg 0900,1700 PO 12/13/20 17:00 12/13/20 17:49 DC 12/13/20 16:35 Valproic Acid (Depakene) 125 mg 0900,1700 PO 12/14/20 09:00 12/17/20 15:35 DC 12/17/20 08:39 Valproic Acid (Depakene) 125 mg [id number] PO 12/17/20 21:00 12/23/20 16:57 DC 12/23/20 14:05 Valproic Acid (Depakene) 125 mg QID PO 12/23/20 17:00 01/02/21 11:54 DC 01/02/21 08:35 Hydroxyzine HCl (Atarax) 10 mg PRN Q2HR PRN PO ITCHING 12/29/20 20:15 01/31/21 20:20 Quetiapine Fumarate (SEROquel) 25 mg 1700 PO 01/02/21 17:00 02/06/21 17:54 Valproic Acid (Depakene) 125 mg 1300,1700 PO 01/02/21 13:00 01/24/21 18:13 DC 01/24/21 16:26 Quetiapine Fumarate (SEROquel) 12.5 mg 1200 PO 01/02/21 12:00 02/06/21 12:26 Valproic Acid (Depakene) 250 mg 0900,2100 PO 01/02/21 21:00 01/24/21 18:13 DC 01/24/21 08:20 Oxycodone/ Acetaminophen (Percocet 7.5/ 325) 1 tab PRN Q6HRS PRN PO MOD-SEV PAIN 01/13/21 16:45 01/21/21 18:29 DC Lidocaine (Lidoderm) 2 patch DAILY TD 01/22/21 09:00 02/02/21 18:41 DC 02/02/21 08:18 Miscellaneous (Lidoderm Patch Removal) 1 ea QHS MC 01/22/21 21:00 02/05/21 19:46 Valproic Acid (Depakene) 125 mg 1300,1700,2100 PO 01/24/21 21:00 02/06/21 20:18 Valproic Acid (Depakene) 250 mg 0900 PO 01/25/21 09:00 02/06/21 08:16 Lidocaine (Lidoderm) 2 patch PRN DAILY PRN TD MUSCLE PAIN 02/02/21 18:45 I have reviewed the current psychotropics carefully including drug interactions. Risk benefit ratio favors no change other than as noted in my dictated progress note. Diagnosis: Problems: (1) Major neurocognitive disorder (2) Impulse control disorder, unspecified (3) Anxiety disorder, unspecified (4) Dementia, vascular, with depression (5) Dementia, vascular, with delusions (6) Dementia in Alzheimer's disease with depression (7) Dementia in Alzheimer's disease with delusions (8) Dementia of the Alzheimer's type with early onset with behavioral disturba EMILY Dang MD Feb 06, 2021 22:12
[2021-02-07 06:04] VITALS: BP 133/82
--- NOTE | 2021-02-07 06:42 | PDOC ---
Exam Note: Earle Note: This note is a late entry for 02/05/2021 covers elements not covered in my initial note. Subjective: The patient was seen face to face in the evening of 02/05/2021 with Yamilex APPIAH, discussed and reviewed the chart. The patient slept 6-1/4 hours previous night. Overall she remains confused. She wanders the hallways. Her vision is poor. Review of Systems: Ambulation impaired. No CV, , pulmonary, ENT system symptoms on review. Mental Status Exam: The patient is oriented to herself. Insight and judgment, recent and remote memory, attention and concentration, fund of knowledge is poor consistent with her diagnoses. Laboratory Data: Reviewed. Impression: Major neurocognitive disorder Alzheimer vascular with delusion, depression, and behavioral disturbance. Anxiety disorder unspecified. Impulse control disorder unspecified. Plan: No change from initial note. Assessment: Vital Signs/I&O: Vital Signs Date Time Temp Pulse Resp B/P (MAP) Pulse Ox O2 Delivery O2 Flow Rate FiO2 02/07/21 06:04 97.2 67 16 133/82 (99) 98 02/06/21 16:05 Room Air I & O 02/06/21 02/06/21 02/07/21 15:00 23:00 07:00 Intake Total 550 ml 590 ml Balance 550 ml 590 ml Current Medications: Meds: Current Medications Medications (Trade) Dose Ordered Sig/Brianne Route PRN Reason Start Time Stop Time Status Last Admin Dose Admin Lorazepam (Ativan) 1 mg STK-MED ONCE .ROUTE 12/02/20 14:25 12/02/20 14:25 DC Lorazepam (Ativan) 1 mg 1X ONCE PO 12/02/20 14:30 12/02/20 14:36 DC 12/02/20 14:31 Potassium/ Phosphorus/Sodium (Phos-Nak) 1 pkt 1X ONCE PO 12/02/20 15:00 12/02/20 15:01 Cancel Potassium Bicarbonate (Potassium Effervescent Tablet) 20 meq STK-MED ONCE .ROUTE 12/02/20 14:56 12/02/20 14:57 DC Potassium Bicarbonate (Potassium Effervescent Tablet) 20 meq 1X ONCE PO 12/02/20 15:00 12/02/20 15:01 DC 12/02/20 15:00 Acetaminophen (Tylenol) 650 mg PRN Q6HRS PRN PO MILD PAIN / TEMP > 100.3'F 12/02/20 15:45 01/20/21 19:51 Multi-Ingredient Ointment (Analgesic [place]) 1 itz PRN QID PRN TP MUSCLE PAIN 12/02/20 15:45 02/04/21 17:26 DC Al Hydroxide/Mg Hydroxide (Mylanta Plus Xs) 15 ml PRN AFTMEALHC PRN PO DYSPEPSIA 12/02/20 15:45 02/06/21 09:19 Magnesium Hydroxide (Milk Of Magnesia) 2,400 mg PRN QHS PRN PO CONSTIPATION 12/02/20 15:45 12/03/20 16:29 Lisinopril (Prinivil) 10 mg DAILY PO 12/03/20 09:00 02/06/21 08:15 Multivitamins/ Calcium (Thera-M Plus) 1 tab DAILY PO 12/03/20 09:00 02/06/21 08:16 Olanzapine (ZyPREXA ZYDIS) 2.5 mg PRN Q2HRS PRN PO PSYCHOSIS 12/02/20 17:00 02/06/21 15:37 Potassium Chloride (Klor-Con) 20 meq DAILYWBKFT PO 12/04/20 08:00 02/06/21 08:15 Sertraline HCl (Zoloft) 25 mg DAILY PO 12/04/20 09:00 12/06/20 21:00 DC 12/06/20 08:17 Sertraline HCl (Zoloft) 50 mg DAILY PO 12/07/20 09:00 02/06/21 08:15 Quetiapine Fumarate (SEROquel) 12.5 mg 0900 PO 12/09/20 09:00 12/10/20 16:51 DC 12/10/20 09:00 Quetiapine Fumarate (SEROquel) 12.5 mg ONCE ONCE PO 12/08/20 17:15 12/08/20 17:16 DC 12/08/20 17:15 Quetiapine Fumarate (SEROquel) 12.5 mg 1700 PO 12/09/20 18:00 01/02/21 11:54 DC 01/01/21 17:00 Quetiapine Fumarate (SEROquel) 25 mg 0900 PO 12/11/20 09:00 02/06/21 08:15 Divalproex Sodium (Depakote Sprinkles) 125 mg BID PO 12/12/20 21:00 12/13/20 10:16 DC 12/13/20 08:35 Trazodone HCl (Desyrel) 50 mg PRN QHS PRN PO INSOMNIA 12/13/20 00:30 02/06/21 20:18 Divalproex Sodium (Depakote Sprinkles) 125 mg 0900,1700 PO 12/13/20 17:00 12/13/20 17:49 DC 12/13/20 16:35 Valproic Acid (Depakene) 125 mg 0900,1700 PO 12/14/20 09:00 12/17/20 15:35 DC 12/17/20 08:39 Valproic Acid (Depakene) 125 mg [id number] PO 12/17/20 21:00 12/23/20 16:57 DC 12/23/20 14:05 Valproic Acid (Depakene) 125 mg QID PO 12/23/20 17:00 01/02/21 11:54 DC 01/02/21 08:35 Hydroxyzine HCl (Atarax) 10 mg PRN Q2HR PRN PO ITCHING 12/29/20 20:15 01/31/21 20:20 Quetiapine Fumarate (SEROquel) 25 mg 1700 PO 01/02/21 17:00 02/06/21 17:54 Valproic Acid (Depakene) 125 mg 1300,1700 PO 01/02/21 13:00 01/24/21 18:13 DC 01/24/21 16:26 Quetiapine Fumarate (SEROquel) 12.5 mg 1200 PO 01/02/21 12:00 02/06/21 12:26 Valproic Acid (Depakene) 250 mg 0900,2100 PO 01/02/21 21:00 01/24/21 18:13 DC 01/24/21 08:20 Oxycodone/ Acetaminophen (Percocet 7.5/ 325) 1 tab PRN Q6HRS PRN PO MOD-SEV PAIN 01/13/21 16:45 01/21/21 18:29 DC Lidocaine (Lidoderm) 2 patch DAILY TD 01/22/21 09:00 02/02/21 18:41 DC 02/02/21 08:18 Miscellaneous (Lidoderm Patch Removal) 1 ea QHS MC 01/22/21 21:00 02/05/21 19:46 Valproic Acid (Depakene) 125 mg 1300,1700,2100 PO 01/24/21 21:00 02/06/21 20:18 Valproic Acid (Depakene) 250 mg 0900 PO 01/25/21 09:00 02/06/21 08:16 Lidocaine (Lidoderm) 2 patch PRN DAILY PRN TD MUSCLE PAIN 02/02/21 18:45 I have reviewed the current psychotropics carefully including drug interactions. Risk benefit ratio favors no change other than as noted in my dictated progress note. 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
--- NOTE | 2021-02-07 06:56 | PDOC ---
Exam Note: Earle Note: This note is a late entry for 02/06/2021 covers elements not covered in my initial note. Subjective: The patient was reviewed at treatment team meeting individually in the morning on 02/06/2021 with Maryana Rice, Cathy Hargrove (aids social worker), Elizabeth, activity therapy and Chuck APPIAH, discussed and reviewed the chart. The patient slept 7 hours previous night. Appetite is 60%. The patients Aron attended the conference. Also discussed with the nursing staff in the evening the patients diagnoses, progress. She was little agitated in the afternoon. Received Zyprexa at 3 p.m. and did well after that. Social service staff is arranging placement. She has attended 4 groups and was dancing in some of the groups, quite appropriate, confused. She has been accepted at [facility] and will transition next Wednesday. Review of Systems: Ambulation impaired. No CV, , pulmonary, ENT system symptoms on review. She does have poor vision. Reliability poor. Mental Status Exam: The patient is oriented to herself. I met with her in her room. Insight and judgment, recent and remote memory, attention and concentration, fund of knowledge is poor consistent with her diagnoses. Laboratory Data: Reviewed. Impression: Major neurocognitive disorder Alzheimer vascular with delusion, depression, and behavioral disturbance. Anxiety disorder unspecified. Impulse control disorder unspecified. Plan: No change from initial note. Assessment: Vital Signs/I&O: Vital Signs Date Time Temp Pulse Resp B/P (MAP) Pulse Ox O2 Delivery O2 Flow Rate FiO2 02/07/21 06:04 97.2 67 16 133/82 (99) 98 02/06/21 16:05 Room Air I & O 02/06/21 02/06/21 02/07/21 15:00 23:00 07:00 Intake Total 550 ml 590 ml Balance 550 ml 590 ml Current Medications: Meds: Current Medications Medications (Trade) Dose Ordered Sig/Brianne Route PRN Reason Start Time Stop Time Status Last Admin Dose Admin Lorazepam (Ativan) 1 mg STK-MED ONCE .ROUTE 12/02/20 14:25 12/02/20 14:25 DC Lorazepam (Ativan) 1 mg 1X ONCE PO 12/02/20 14:30 12/02/20 14:36 DC 12/02/20 14:31 Potassium/ Phosphorus/Sodium (Phos-Nak) 1 pkt 1X ONCE PO 12/02/20 15:00 12/02/20 15:01 Cancel Potassium Bicarbonate (Potassium Effervescent Tablet) 20 meq STK-MED ONCE .ROUTE 12/02/20 14:56 12/02/20 14:57 DC Potassium Bicarbonate (Potassium Effervescent Tablet) 20 meq 1X ONCE PO 12/02/20 15:00 12/02/20 15:01 DC 12/02/20 15:00 Acetaminophen (Tylenol) 650 mg PRN Q6HRS PRN PO MILD PAIN / TEMP > 100.3'F 12/02/20 15:45 01/20/21 19:51 Multi-Ingredient Ointment (Analgesic [place]) 1 itz PRN QID PRN TP MUSCLE PAIN 12/02/20 15:45 02/04/21 17:26 DC Al Hydroxide/Mg Hydroxide (Mylanta Plus Xs) 15 ml PRN AFTMEALHC PRN PO DYSPEPSIA 12/02/20 15:45 02/06/21 09:19 Magnesium Hydroxide (Milk Of Magnesia) 2,400 mg PRN QHS PRN PO CONSTIPATION 12/02/20 15:45 12/03/20 16:29 Lisinopril (Prinivil) 10 mg DAILY PO 12/03/20 09:00 02/06/21 08:15 Multivitamins/ Calcium (Thera-M Plus) 1 tab DAILY PO 12/03/20 09:00 02/06/21 08:16 Olanzapine (ZyPREXA ZYDIS) 2.5 mg PRN Q2HRS PRN PO PSYCHOSIS 12/02/20 17:00 02/06/21 15:37 Potassium Chloride (Klor-Con) 20 meq DAILYWBKFT PO 12/04/20 08:00 02/06/21 08:15 Sertraline HCl (Zoloft) 25 mg DAILY PO 12/04/20 09:00 12/06/20 21:00 DC 12/06/20 08:17 Sertraline HCl (Zoloft) 50 mg DAILY PO 12/07/20 09:00 02/06/21 08:15 Quetiapine Fumarate (SEROquel) 12.5 mg 0900 PO 12/09/20 09:00 12/10/20 16:51 DC 12/10/20 09:00 Quetiapine Fumarate (SEROquel) 12.5 mg ONCE ONCE PO 12/08/20 17:15 12/08/20 17:16 DC 12/08/20 17:15 Quetiapine Fumarate (SEROquel) 12.5 mg 1700 PO 12/09/20 18:00 01/02/21 11:54 DC 01/01/21 17:00 Quetiapine Fumarate (SEROquel) 25 mg 0900 PO 12/11/20 09:00 02/06/21 08:15 Divalproex Sodium (Depakote Sprinkles) 125 mg BID PO 12/12/20 21:00 12/13/20 10:16 DC 12/13/20 08:35 Trazodone HCl (Desyrel) 50 mg PRN QHS PRN PO INSOMNIA 12/13/20 00:30 02/06/21 20:18 Divalproex Sodium (Depakote Sprinkles) 125 mg 0900,1700 PO 12/13/20 17:00 12/13/20 17:49 DC 12/13/20 16:35 Valproic Acid (Depakene) 125 mg 0900,1700 PO 12/14/20 09:00 12/17/20 15:35 DC 12/17/20 08:39 Valproic Acid (Depakene) 125 mg [id number] PO 12/17/20 21:00 12/23/20 16:57 DC 12/23/20 14:05 Valproic Acid (Depakene) 125 mg QID PO 12/23/20 17:00 01/02/21 11:54 DC 01/02/21 08:35 Hydroxyzine HCl (Atarax) 10 mg PRN Q2HR PRN PO ITCHING 12/29/20 20:15 01/31/21 20:20 Quetiapine Fumarate (SEROquel) 25 mg 1700 PO 01/02/21 17:00 02/06/21 17:54 Valproic Acid (Depakene) 125 mg 1300,1700 PO 01/02/21 13:00 01/24/21 18:13 DC 01/24/21 16:26 Quetiapine Fumarate (SEROquel) 12.5 mg 1200 PO 01/02/21 12:00 02/06/21 12:26 Valproic Acid (Depakene) 250 mg 0900,2100 PO 01/02/21 21:00 01/24/21 18:13 DC 01/24/21 08:20 Oxycodone/ Acetaminophen (Percocet 7.5/ 325) 1 tab PRN Q6HRS PRN PO MOD-SEV PAIN 01/13/21 16:45 01/21/21 18:29 DC Lidocaine (Lidoderm) 2 patch DAILY TD 01/22/21 09:00 02/02/21 18:41 DC 02/02/21 08:18 Miscellaneous (Lidoderm Patch Removal) 1 ea QHS MC 01/22/21 21:00 02/05/21 19:46 Valproic Acid (Depakene) 125 mg 1300,1700,2100 PO 01/24/21 21:00 02/06/21 20:18 Valproic Acid (Depakene) 250 mg 0900 PO 01/25/21 09:00 02/06/21 08:16 Lidocaine (Lidoderm) 2 patch PRN DAILY PRN TD MUSCLE PAIN 02/02/21 18:45 I have reviewed the current psychotropics carefully including drug interactions. Risk benefit ratio favors no change other than as noted in my dictated progress note. Diagnosis: Problems: (1) Major neurocognitive disorder (2) Impulse control disorder, unspecified (3) Anxiety disorder, unspecified (4) Dementia, vascular, with depression (5) Dementia, vascular, with delusions (6) Dementia in Alzheimer's disease with depression (7) Dementia in Alzheimer's disease with delusions (8) Dementia of the Alzheimer's type with early onset with behavioral disturbance EMILY CHARLES MD Feb 07, 2021 06:56
[2021-02-07] MEDS: POTASSIUM CHLORIDE 20 MEQ TABLET.ER. PO SCH (08:19)
[2021-02-07] MEDS: SERTRALINE 50 MG TABLET. PO SCH (08:19)
[2021-02-07] MEDS: MULTIVITAMIN with MINERAL TABLET. PO SCH (08:19)
[2021-02-07] MEDS: VALPROATE ACID 250 MG/5 ML ORAL SOLUTION PO SCH ×4 (08:19→20:07)
[2021-02-07] MEDS: QUEtiapine 25 MG TABLET. PO SCH ×3 (08:19→17:30)
[2021-02-07] MEDS: LISINOPRIL 10 MG TABLET PO SCH (08:20)
[2021-02-07 15:40] VITALS: BP 100/60
[2021-02-07] MEDS: PATCH REMOVAL. MC SCH (20:08)
--- NOTE | 2021-02-07 21:59 | PDOC ---
Exam Note: Earle Note: Please also refer to the separate dictated note~for this date of service dictated separately.~Patient seen individually. Discussed the patient with Nursing staff reviewed the chart.~Reviewed interim history and current functioning. Reviewed vital signs,~Labs/ Radiology~and current medications noted below. Continue current treatment with the changes noted in the dictated addendum note Assessment: Vital Signs/I&O: Vital Signs Date Time Temp Pulse Resp B/P (MAP) Pulse Ox O2 Delivery O2 Flow Rate FiO2 02/07/21 15:40 98.2 76 20 100/60 (73) 97 02/06/21 16:05 Room Air I & O 02/06/21 02/06/21 02/07/21 15:00 23:00 07:00 Intake Total 550 ml 590 ml Balance 550 ml 590 ml Current Medications: Meds: Current Medications Medications (Trade) Dose Ordered Sig/Brianne Route PRN Reason Start Time Stop Time Status Last Admin Dose Admin Lorazepam (Ativan) 1 mg STK-MED ONCE .ROUTE 12/02/20 14:25 12/02/20 14:25 DC Lorazepam (Ativan) 1 mg 1X ONCE PO 12/02/20 14:30 12/02/20 14:36 DC 12/02/20 14:31 Potassium/ Phosphorus/Sodium (Phos-Nak) 1 pkt 1X ONCE PO 12/02/20 15:00 12/02/20 15:01 Cancel Potassium Bicarbonate (Potassium Effervescent Tablet) 20 meq STK-MED ONCE .ROUTE 12/02/20 14:56 12/02/20 14:57 DC Potassium Bicarbonate (Potassium Effervescent Tablet) 20 meq 1X ONCE PO 12/02/20 15:00 12/02/20 15:01 DC 12/02/20 15:00 Acetaminophen (Tylenol) 650 mg PRN Q6HRS PRN PO MILD PAIN / TEMP > 100.3'F 12/02/20 15:45 01/20/21 19:51 Multi-Ingredient Ointment (Analgesic [place]) 1 itz PRN QID PRN TP MUSCLE PAIN 12/02/20 15:45 02/04/21 17:26 DC Al Hydroxide/Mg Hydroxide (Mylanta Plus Xs) 15 ml PRN AFTMEALHC PRN PO DYSPEPSIA 12/02/20 15:45 02/06/21 09:19 Magnesium Hydroxide (Milk Of Magnesia) 2,400 mg PRN QHS PRN PO CONSTIPATION 12/02/20 15:45 12/03/20 16:29 Lisinopril (Prinivil) 10 mg DAILY PO 12/03/20 09:00 02/07/21 08:20 Multivitamins/ Calcium (Thera-M Plus) 1 tab DAILY PO 12/03/20 09:00 02/07/21 08:19 Olanzapine (ZyPREXA ZYDIS) 2.5 mg PRN Q2HRS PRN PO PSYCHOSIS 12/02/20 17:00 02/06/21 15:37 Potassium Chloride (Klor-Con) 20 meq DAILYWBKFT PO 12/04/20 08:00 02/07/21 08:19 Sertraline HCl (Zoloft) 25 mg DAILY PO 12/04/20 09:00 12/06/20 21:00 DC 12/06/20 08:17 Sertraline HCl (Zoloft) 50 mg DAILY PO 12/07/20 09:00 02/07/21 08:19 Quetiapine Fumarate (SEROquel) 12.5 mg 0900 PO 12/09/20 09:00 12/10/20 16:51 DC 12/10/20 09:00 Quetiapine Fumarate (SEROquel) 12.5 mg ONCE ONCE PO 12/08/20 17:15 12/08/20 17:16 DC 12/08/20 17:15 Quetiapine Fumarate (SEROquel) 12.5 mg 1700 PO 12/09/20 18:00 01/02/21 11:54 DC 01/01/21 17:00 Quetiapine Fumarate (SEROquel) 25 mg 0900 PO 12/11/20 09:00 02/07/21 08:19 Divalproex Sodium (Depakote Sprinkles) 125 mg BID PO 12/12/20 21:00 12/13/20 10:16 DC 12/13/20 08:35 Trazodone HCl (Desyrel) 50 mg PRN QHS PRN PO INSOMNIA 12/13/20 00:30 02/06/21 20:18 Divalproex Sodium (Depakote Sprinkles) 125 mg 0900,1700 PO 12/13/20 17:00 12/13/20 17:49 DC 12/13/20 16:35 Valproic Acid (Depakene) 125 mg 0900,1700 PO 12/14/20 09:00 12/17/20 15:35 DC 12/17/20 08:39 Valproic Acid (Depakene) 125 mg [id number] PO 12/17/20 21:00 12/23/20 16:57 DC 12/23/20 14:05 Valproic Acid (Depakene) 125 mg QID PO 12/23/20 17:00 01/02/21 11:54 DC 01/02/21 08:35 Hydroxyzine HCl (Atarax) 10 mg PRN Q2HR PRN PO ITCHING 12/29/20 20:15 01/31/21 20:20 Quetiapine Fumarate (SEROquel) 25 mg 1700 PO 01/02/21 17:00 02/07/21 17:30 Valproic Acid (Depakene) 125 mg 1300,1700 PO 01/02/21 13:00 01/24/21 18:13 DC 01/24/21 16:26 Quetiapine Fumarate (SEROquel) 12.5 mg 1200 PO 01/02/21 12:00 02/07/21 12:38 Valproic Acid (Depakene) 250 mg 0900,2100 PO 01/02/21 21:00 01/24/21 18:13 DC 01/24/21 08:20 Oxycodone/ Acetaminophen (Percocet 7.5/ 325) 1 tab PRN Q6HRS PRN PO MOD-SEV PAIN 01/13/21 16:45 01/21/21 18:29 DC Lidocaine (Lidoderm) 2 patch DAILY TD 01/22/21 09:00 02/02/21 18:41 DC 02/02/21 08:18 Miscellaneous (Lidoderm Patch Removal) 1 ea QHS MC 01/22/21 21:00 02/07/21 20:08 Valproic Acid (Depakene) 125 mg 1300,1700,2100 PO 01/24/21 21:00 02/07/21 20:07 Valproic Acid (Depakene) 250 mg 0900 PO 01/25/21 09:00 02/07/21 08:19 Lidocaine (Lidoderm) 2 patch PRN DAILY PRN TD MUSCLE PAIN 02/02/21 18:45 I have reviewed the current psychotropics carefully including drug interactions. Risk benefit ratio favors no change other than as noted in my dictated progress note. Diagnosis: Problems: (1) Major neurocognitive disorder (2) Impulse control disorder, unspecified (3) Anxiety disorder, unspecified (4) Dementia, vascular, with depression (5) Dementia, vascular, with delusions (6) Dementia in Alzheimer's disease with depression (7) Dementia in Alzheimer's disease with delusions (8) Dementia of the Alzheimer's type with early onset with behavioral disturbance EMILY CHARLES MD Feb 07, 2021 21:59
[2021-02-07] MEDS: hydrOXYzine HCL 10 MG TABLET PO PRN (23:43)
[2021-02-07] MEDS: traZODone 50 MG TABLET. PO PRN (23:44)
[2021-02-08 05:25] VITALS: BP 102/67
[2021-02-08 06:50] LABS: BASO # 0.1 x10^3/uL (0.0-0.2); BASO % 2 % (0-3); EOS # 0.2 x10^3/uL (0.0-0.7); EOS % 4 % (0-3); HEMOGLOBIN 11.7 g/dL (12.0-15.5); LYMPH # 1.7 x10^3/uL (1.0-4.8); LYMPH % 29 % (24-48); MEAN CORPUSCULAR HEMOGLOBIN 32 pg (25-35); MEAN CORPUSCULAR HGB CONC 33 g/dL (31-37); MEAN CORPUSCULAR VOLUME 96 fL (79-100); MONO # 0.5 x10^3/uL (0.0-1.1); MONO % 9 % (0-9); NEUT # 3.1 x10^3uL (1.8-7.7); NEUT % 55 % (31-73); PLATELET COUNT 251 x10^3/uL (140-400); RED BLOOD COUNT 3.67 x10^6/uL (3.50-5.40); RED CELL DISTRIBUTION WIDTH 13.7 % (11.5-14.5); WHITE BLOOD COUNT 5.7 x10^3/uL (4.0-11.0)
[2021-02-08 07:00] LABS: ALBUMIN 3.8 g/dL (3.4-5.0); ALBUMIN/GLOBULIN RATIO 1.1 (1.0-1.7); CALCIUM 9.3 mg/dL (8.5-10.1); CREATININE 0.8 mg/dL (0.6-1.0); GFR 68.5; POTASSIUM 4.3 mmol/L (3.5-5.1); TOTAL BILIRUBIN 0.3 mg/dL (0.2-1.0); TOTAL PROTEIN 7.4 g/dL (6.4-8.2)
[2021-02-08] MEDS: QUEtiapine 25 MG TABLET. PO SCH ×3 (07:58→16:57)
[2021-02-08] MEDS: POTASSIUM CHLORIDE 20 MEQ TABLET.ER. PO SCH (07:58)
[2021-02-08] MEDS: SERTRALINE 50 MG TABLET. PO SCH (07:58)
[2021-02-08] MEDS: LISINOPRIL 10 MG TABLET PO SCH (07:58)
[2021-02-08] MEDS: MULTIVITAMIN with MINERAL TABLET. PO SCH (07:59)
[2021-02-08] MEDS: VALPROATE ACID 250 MG/5 ML ORAL SOLUTION PO SCH ×4 (07:59→20:10)
[2021-02-08 15:47] VITALS: BP 101/66
[2021-02-08] MEDS: traZODone 50 MG TABLET. PO PRN (20:10)
[2021-02-08] MEDS: PATCH REMOVAL. MC SCH (20:11)
--- NOTE | 2021-02-08 21:55 | PDOC ---
Exam Note: Earle Note: Please also refer to the separate dictated note~for this date of service dictated separately.~Patient seen individually. Discussed the patient with Nursing staff reviewed the chart.~Reviewed interim history and current functioning. Reviewed vital signs,~Labs/ Radiology~and current medications noted below. Continue current treatment with the changes noted in the dictated addendum note Assessment: Vital Signs/I&O: Vital Signs Date Time Temp Pulse Resp B/P (MAP) Pulse Ox O2 Delivery O2 Flow Rate FiO2 02/08/21 15:47 97.3 72 18 101/66 (78) 94 02/06/21 16:05 Room Air I & O 02/07/21 02/07/21 02/08/21 15:00 23:00 07:00 Intake Total 600 ml 360 ml Balance 600 ml 360 ml Labs: Laboratory Tests Test 02/08/21 06:29 White Blood Count 5.7 x10^3/uL (4.0-11.0) Red Blood Count 3.67 x10^6/uL (3.50-5.40) Hemoglobin 11.7 g/dL (12.0-15.5) L Hematocrit 35.0 % (36.0-47.0) L Mean Corpuscular Volume 96 fL (79-100) Mean Corpuscular Hemoglobin 32 pg (25-35) Mean Corpuscular Hemoglobin Concent 33 g/dL (31-37) Red Cell Distribution Width 13.7 % (11.5-14.5) Platelet Count 251 x10^3/uL (140-400) Neutrophils (%) (Auto) 55 % (31-73) Lymphocytes (%) (Auto) 29 % (24-48) Monocytes (%) (Auto) 9 % (0-9) Eosinophils (%) (Auto) 4 % (0-3) H Basophils (%) (Auto) 2 % (0-3) Neutrophils # (Auto) 3.1 x10^3uL (1.8-7.7) Lymphocytes # (Auto) 1.7 x10^3/uL (1.0-4.8) Monocytes # (Auto) 0.5 x10^3/uL (0.0-1.1) Eosinophils # (Auto) 0.2 x10^3/uL (0.0-0.7) Basophils # (Auto) 0.1 x10^3/uL (0.0-0.2) Sodium Level 144 mmol/L (136-145) Potassium Level 4.3 mmol/L (3.5-5.1) Chloride Level 105 mmol/L (98-107) Carbon Dioxide Level 31 mmol/L (21-32) Anion Gap 8 (6-14) Blood Urea Nitrogen 25 mg/dL (7-20) H Creatinine 0.8 mg/dL (0.6-1.0) Estimated GFR (Cockcroft-Gault) 68.5 BUN/Creatinine Ratio 31 (6-20) H Glucose Level 92 mg/dL (70-99) Calcium Level 9.3 mg/dL (8.5-10.1) Total Bilirubin 0.3 mg/dL (0.2-1.0) Aspartate Amino Transferase (AST) 16 U/L (15-37) Alanine Aminotransferase (ALT) 21 U/L (14-59) Alkaline Phosphatase 67 U/L (46-116) Total Protein 7.4 g/dL (6.4-8.2) Albumin 3.8 g/dL (3.4-5.0) Albumin/Globulin Ratio 1.1 (1.0-1.7) Current Medications: Meds: Laboratory Tests Test 02/08/21 06:29 White Blood Count 5.7 x10^3/uL Red Blood Count 3.67 x10^6/uL Hemoglobin 11.7 g/dL Hematocrit 35.0 % Mean Corpuscular Volume 96 fL Mean Corpuscular Hemoglobin 32 pg Mean Corpuscular Hemoglobin Concent 33 g/dL Red Cell Distribution Width 13.7 % Platelet Count 251 x10^3/uL Neutrophils (%) (Auto) 55 % Lymphocytes (%) (Auto) 29 % Monocytes (%) (Auto) 9 % Eosinophils (%) (Auto) 4 % Basophils (%) (Auto) 2 % Neutrophils # (Auto) 3.1 x10^3uL Lymphocytes # (Auto) 1.7 x10^3/uL Monocytes # (Auto) 0.5 x10^3/uL Eosinophils # (Auto) 0.2 x10^3/uL Basophils # (Auto) 0.1 x10^3/uL Sodium Level 144 mmol/L Potassium Level 4.3 mmol/L Chloride Level 105 mmol/L Carbon Dioxide Level 31 mmol/L Anion Gap 8 Blood Urea Nitrogen 25 mg/dL Creatinine 0.8 mg/dL Estimated GFR (Cockcroft-Gault) 68.5 BUN/Creatinine Ratio 31 Glucose Level 92 mg/dL Calcium Level 9.3 mg/dL Total Bilirubin 0.3 mg/dL Aspartate Amino Transf (AST/SGOT) 16 U/L Alanine Aminotransferase (ALT/SGPT) 21 U/L Alkaline Phosphatase 67 U/L Total Protein 7.4 g/dL Albumin 3.8 g/dL Albumin/Globulin Ratio 1.1 Current Medications Medications (Trade) Dose Ordered Sig/Brianne Route PRN Reason Start Time Stop Time Status Last Admin Dose Admin Lorazepam (Ativan) 1 mg STK-MED ONCE .ROUTE 12/02/20 14:25 12/02/20 14:25 DC Lorazepam (Ativan) 1 mg 1X ONCE PO 12/02/20 14:30 12/02/20 14:36 DC 12/02/20 14:31 Potassium/ Phosphorus/Sodium (Phos-Nak) 1 pkt 1X ONCE PO 12/02/20 15:00 12/02/20 15:01 Cancel Potassium Bicarbonate (Potassium Effervescent Tablet) 20 meq STK-MED ONCE .ROUTE 12/02/20 14:56 12/02/20 14:57 DC Potassium Bicarbonate (Potassium Effervescent Tablet) 20 meq 1X ONCE PO 12/02/20 15:00 12/02/20 15:01 DC 12/02/20 15:00 Acetaminophen (Tylenol) 650 mg PRN Q6HRS PRN PO MILD PAIN / TEMP > 100.3'F 12/02/20 15:45 01/20/21 19:51 Multi-Ingredient Ointment (Analgesic [place]) 1 itz PRN QID PRN TP MUSCLE PAIN 12/02/20 15:45 02/04/21 17:26 DC Al Hydroxide/Mg Hydroxide (Mylanta Plus Xs) 15 ml PRN AFTMEALHC PRN PO DYSPEPSIA 12/02/20 15:45 02/06/21 09:19 Magnesium Hydroxide (Milk Of Magnesia) 2,400 mg PRN QHS PRN PO CONSTIPATION 12/02/20 15:45 12/03/20 16:29 Lisinopril (Prinivil) 10 mg DAILY PO 12/03/20 09:00 02/08/21 07:58 Multivitamins/ Calcium (Thera-M Plus) 1 tab DAILY PO 12/03/20 09:00 02/08/21 07:59 Olanzapine (ZyPREXA ZYDIS) 2.5 mg PRN Q2HRS PRN PO PSYCHOSIS 12/02/20 17:00 02/08/21 20:11 Potassium Chloride (Klor-Con) 20 meq DAILYWBKFT PO 12/04/20 08:00 02/08/21 07:58 Sertraline HCl (Zoloft) 25 mg DAILY PO 12/04/20 09:00 12/06/20 21:00 DC 12/06/20 08:17 Sertraline HCl (Zoloft) 50 mg DAILY PO 12/07/20 09:00 02/08/21 07:58 Quetiapine Fumarate (SEROquel) 12.5 mg 0900 PO 12/09/20 09:00 12/10/20 16:51 DC 12/10/20 09:00 Quetiapine Fumarate (SEROquel) 12.5 mg ONCE ONCE PO 12/08/20 17:15 12/08/20 17:16 DC 12/08/20 17:15 Quetiapine Fumarate (SEROquel) 12.5 mg 1700 PO 12/09/20 18:00 01/02/21 11:54 DC 01/01/21 17:00 Quetiapine Fumarate (SEROquel) 25 mg 0900 PO 12/11/20 09:00 02/08/21 07:58 Divalproex Sodium (Depakote Sprinkles) 125 mg BID PO 12/12/20 21:00 12/13/20 10:16 DC 12/13/20 08:35 Trazodone HCl (Desyrel) 50 mg PRN QHS PRN PO INSOMNIA 12/13/20 00:30 02/08/21 20:10 Divalproex Sodium (Depakote Sprinkles) 125 mg 0900,1700 PO 12/13/20 17:00 12/13/20 17:49 DC 12/13/20 16:35 Valproic Acid (Depakene) 125 mg 0900,1700 PO 12/14/20 09:00 12/17/20 15:35 DC 12/17/20 08:39 Valproic Acid (Depakene) 125 mg [id number] PO 12/17/20 21:00 12/23/20 16:57 DC 12/23/20 14:05 Valproic Acid (Depakene) 125 mg QID PO 12/23/20 17:00 01/02/21 11:54 DC 01/02/21 08:35 Hydroxyzine HCl (Atarax) 10 mg PRN Q2HR PRN PO ITCHING 12/29/20 20:15 01/31/21 20:20 Quetiapine Fumarate (SEROquel) 25 mg 1700 PO 01/02/21 17:00 02/08/21 16:57 Valproic Acid (Depakene) 125 mg 1300,1700 PO 01/02/21 13:00 01/24/21 18:13 DC 01/24/21 16:26 Quetiapine Fumarate (SEROquel) 12.5 mg 1200 PO 01/02/21 12:00 02/08/21 12:15 Valproic Acid (Depakene) 250 mg 0900,2100 PO 01/02/21 21:00 01/24/21 18:13 DC 01/24/21 08:20 Oxycodone/ Acetaminophen (Percocet 7.5/ 325) 1 tab PRN Q6HRS PRN PO MOD-SEV PAIN 01/13/21 16:45 01/21/21 18:29 DC Lidocaine (Lidoderm) 2 patch DAILY TD 01/22/21 09:00 02/02/21 18:41 DC 02/02/21 08:18 Miscellaneous (Lidoderm Patch Removal) 1 ea QHS MC 01/22/21 21:00 02/07/21 20:08 Valproic Acid (Depakene) 125 mg 1300,1700,2100 PO 01/24/21 21:00 02/08/21 20:10 Valproic Acid (Depakene) 250 mg 0900 PO 01/25/21 09:00 02/08/21 07:59 Lidocaine (Lidoderm) 2 patch PRN DAILY PRN TD MUSCLE PAIN 02/02/21 18:45 I have reviewed the current psychotropics carefully including drug interactions. Risk benefit ratio favors no change other than as noted in my dictated progress note. Diagnosis: Problems: (1) Major neurocognitive disorder (2) Impulse control disorder, unspecified (3) Anxiety disorder, unspecified (4) Dementia, vascular, with depression (5) Dementia, vascular, with delusions (6) Dementia in Alzheimer's disease with depression (7) Dementia in Alzheimer's disease with delusions (8) Dementia of the Alzheimer's type with early onset with behavioral disturbance EMILY CHARLES MD Feb 08, 2021 21:55
[2021-02-09 06:37] VITALS: BP 115/63
[2021-02-09] MEDS: LISINOPRIL 10 MG TABLET PO SCH (08:37)
[2021-02-09] MEDS: MULTIVITAMIN with MINERAL TABLET. PO SCH (08:37)
[2021-02-09] MEDS: POTASSIUM CHLORIDE 20 MEQ TABLET.ER. PO SCH (08:37)
[2021-02-09] MEDS: VALPROATE ACID 250 MG/5 ML ORAL SOLUTION PO SCH ×4 (08:38→19:49)
[2021-02-09] MEDS: QUEtiapine 25 MG TABLET. PO SCH ×3 (08:38→17:05)
[2021-02-09] MEDS: SERTRALINE 50 MG TABLET. PO SCH (08:38)
[2021-02-09 16:04] VITALS: BP 116/70
[2021-02-09] MEDS: traZODone 50 MG TABLET. PO PRN (19:48)
[2021-02-09] MEDS: PATCH REMOVAL. MC SCH (19:49)
--- NOTE | 2021-02-09 23:06 | PDOC ---
Exam Note: Earle Note: Please also refer to the separate dictated note~for this date of service dictated separately.~Patient seen individually. Discussed the patient with Nursing staff reviewed the chart.~Reviewed interim history and current functioning. Reviewed vital signs,~Labs/ Radiology~and current medications noted below. Continue current treatment with the changes noted in the dictated addendum note Assessment: Vital Signs/I&O: Vital Signs Date Time Temp Pulse Resp B/P (MAP) Pulse Ox O2 Delivery O2 Flow Rate FiO2 02/09/21 16:04 97.7 93 20 116/70 (85) 96 02/06/21 16:05 Room Air I & O 02/08/21 02/08/21 02/09/21 15:00 23:00 07:00 Intake Total 360 ml 360 ml Balance 360 ml 360 ml Labs: Laboratory Tests Test 02/09/21 06:00 SARS-CoV-2 (PCR) Negative (NEGATIVE) Current Medications: Meds: Laboratory Tests Test 02/09/21 06:00 Coronavirus (COVID-19)(PCR) Negative Current Medications Medications (Trade) Dose Ordered Sig/Brianne Route PRN Reason Start Time Stop Time Status Last Admin Dose Admin Lorazepam (Ativan) 1 mg STK-MED ONCE .ROUTE 12/02/20 14:25 12/02/20 14:25 DC Lorazepam (Ativan) 1 mg 1X ONCE PO 12/02/20 14:30 12/02/20 14:36 DC 12/02/20 14:31 Potassium/ Phosphorus/Sodium (Phos-Nak) 1 pkt 1X ONCE PO 12/02/20 15:00 12/02/20 15:01 Cancel Potassium Bicarbonate (Potassium Effervescent Tablet) 20 meq STK-MED ONCE .ROUTE 12/02/20 14:56 12/02/20 14:57 DC Potassium Bicarbonate (Potassium Effervescent Tablet) 20 meq 1X ONCE PO 12/02/20 15:00 12/02/20 15:01 DC 12/02/20 15:00 Acetaminophen (Tylenol) 650 mg PRN Q6HRS PRN PO MILD PAIN / TEMP > 100.3'F 12/02/20 15:45 01/20/21 19:51 Multi-Ingredient Ointment (Analgesic [place]) 1 itz PRN QID PRN TP MUSCLE PAIN 12/02/20 15:45 02/04/21 17:26 DC Al Hydroxide/Mg Hydroxide (Mylanta Plus Xs) 15 ml PRN AFTMEALHC PRN PO DYSPEPSIA 12/02/20 15:45 02/06/21 09:19 Magnesium Hydroxide (Milk Of Magnesia) 2,400 mg PRN QHS PRN PO CONSTIPATION 12/02/20 15:45 12/03/20 16:29 Lisinopril (Prinivil) 10 mg DAILY PO 12/03/20 09:00 02/09/21 08:37 Multivitamins/ Calcium (Thera-M Plus) 1 tab DAILY PO 12/03/20 09:00 02/09/21 08:37 Olanzapine (ZyPREXA ZYDIS) 2.5 mg PRN Q2HRS PRN PO PSYCHOSIS 12/02/20 17:00 02/08/21 20:11 Potassium Chloride (Klor-Con) 20 meq DAILYWBKFT PO 12/04/20 08:00 02/09/21 08:37 Sertraline HCl (Zoloft) 25 mg DAILY PO 12/04/20 09:00 12/06/20 21:00 DC 12/06/20 08:17 Sertraline HCl (Zoloft) 50 mg DAILY PO 12/07/20 09:00 02/09/21 08:38 Quetiapine Fumarate (SEROquel) 12.5 mg 0900 PO 12/09/20 09:00 12/10/20 16:51 DC 12/10/20 09:00 Quetiapine Fumarate (SEROquel) 12.5 mg ONCE ONCE PO 12/08/20 17:15 12/08/20 17:16 DC 12/08/20 17:15 Quetiapine Fumarate (SEROquel) 12.5 mg 1700 PO 12/09/20 18:00 01/02/21 11:54 DC 01/01/21 17:00 Quetiapine Fumarate (SEROquel) 25 mg 0900 PO 12/11/20 09:00 02/09/21 08:38 Divalproex Sodium (Depakote Sprinkles) 125 mg BID PO 12/12/20 21:00 12/13/20 10:16 DC 12/13/20 08:35 Trazodone HCl (Desyrel) 50 mg PRN QHS PRN PO INSOMNIA 12/13/20 00:30 02/09/21 19:48 Divalproex Sodium (Depakote Sprinkles) 125 mg 0900,1700 PO 12/13/20 17:00 12/13/20 17:49 DC 12/13/20 16:35 Valproic Acid (Depakene) 125 mg 0900,1700 PO 12/14/20 09:00 12/17/20 15:35 DC 12/17/20 08:39 Valproic Acid (Depakene) 125 mg [id number] PO 12/17/20 21:00 12/23/20 16:57 DC 12/23/20 14:05 Valproic Acid (Depakene) 125 mg QID PO 12/23/20 17:00 01/02/21 11:54 DC 01/02/21 08:35 Hydroxyzine HCl (Atarax) 10 mg PRN Q2HR PRN PO ITCHING 12/29/20 20:15 01/31/21 20:20 Quetiapine Fumarate (SEROquel) 25 mg 1700 PO 01/02/21 17:00 02/09/21 17:05 Valproic Acid (Depakene) 125 mg 1300,1700 PO 01/02/21 13:00 01/24/21 18:13 DC 01/24/21 16:26 Quetiapine Fumarate (SEROquel) 12.5 mg 1200 PO 01/02/21 12:00 02/09/21 12:05 Valproic Acid (Depakene) 250 mg 0900,2100 PO 01/02/21 21:00 01/24/21 18:13 DC 01/24/21 08:20 Oxycodone/ Acetaminophen (Percocet 7.5/ 325) 1 tab PRN Q6HRS PRN PO MOD-SEV PAIN 01/13/21 16:45 01/21/21 18:29 DC Lidocaine (Lidoderm) 2 patch DAILY TD 01/22/21 09:00 02/02/21 18:41 DC 02/02/21 08:18 Miscellaneous (Lidoderm Patch Removal) 1 ea QHS MC 01/22/21 21:00 02/09/21 19:49 Valproic Acid (Depakene) 125 mg 1300,1700,2100 PO 01/24/21 21:00 02/09/21 19:49 Valproic Acid (Depakene) 250 mg 0900 PO 01/25/21 09:00 02/09/21 08:38 Lidocaine (Lidoderm) 2 patch PRN DAILY PRN TD MUSCLE PAIN 02/02/21 18:45 I have reviewed the current psychotropics carefully including drug interactions. Risk benefit ratio favors no change other than as noted in my dictated progress note. Diagnosis: Problems: (1) Major neurocognitive disorder (2) Impulse control disorder, unspecified (3) Anxiety disorder, unspecified (4) Dementia, vascular, with depression (5) Dementia, vascular, with delusions (6) Dementia in Alzheimer's disease with depression (7) Dementia in Alzheimer's disease with delusions (8) Dementia of the Alzheimer's type with early onset with behavioral disturbance EMILY CHARLES MD Feb 09, 2021 23:06
[2021-02-10 05:57] VITALS: BP 107/67
--- NOTE | 2021-02-10 06:33 | PDOC ---
Exam Note: Earle Note: This note is a late entry for 02/07/2021 covers elements not covered in my initial note. Subjective: The patient was seen face to face in the evening of 02/07/2021 with Shanthi APPIAH, discussed and reviewed the chart. The patient slept 8-1/4 hours previous night. She has been confused, wandering, exit seeking at times, compliant with medications. Review of Systems: Ambulation impaired. No CV, , pulmonary, ENT system symptoms on review. Reliability poor. Poor vision. Mental Status Exam: The patient is oriented to herself. Insight and judgment, recent and remote memory, attention and concentration, fund of knowledge is poor consistent with her diagnoses. Laboratory Data: Reviewed. Impression: Major neurocognitive disorder Alzheimer vascular with delusion, depression, and behavioral disturbance. Anxiety disorder unspecified. Impulse control disorder unspecified. Plan: No change from initial note. Assessment: Vital Signs/I&O: Vital Signs Date Time Temp Pulse Resp B/P (MAP) Pulse Ox O2 Delivery O2 Flow Rate FiO2 02/10/21 05:57 98.3 81 16 107/67 (80) 95 02/06/21 16:05 Room Air I & O 02/09/21 02/09/21 02/10/21 15:00 23:00 07:00 Intake Total 720 ml 240 ml 120 ml Balance 720 ml 240 ml 120 ml Current Medications: Meds: Current Medications Medications (Trade) Dose Ordered Sig/Brianne Route PRN Reason Start Time Stop Time Status Last Admin Dose Admin Lorazepam (Ativan) 1 mg STK-MED ONCE .ROUTE 12/02/20 14:25 12/02/20 14:25 DC Lorazepam (Ativan) 1 mg 1X ONCE PO 12/02/20 14:30 12/02/20 14:36 DC 12/02/20 14:31 Potassium/ Phosphorus/Sodium (Phos-Nak) 1 pkt 1X ONCE PO 12/02/20 15:00 12/02/20 15:01 Cancel Potassium Bicarbonate (Potassium Effervescent Tablet) 20 meq STK-MED ONCE .ROUTE 12/02/20 14:56 12/02/20 14:57 DC Potassium Bicarbonate (Potassium Effervescent Tablet) 20 meq 1X ONCE PO 12/02/20 15:00 12/02/20 15:01 DC 12/02/20 15:00 Acetaminophen (Tylenol) 650 mg PRN Q6HRS PRN PO MILD PAIN / TEMP > 100.3'F 12/02/20 15:45 01/20/21 19:51 Multi-Ingredient Ointment (Analgesic [place]) 1 itz PRN QID PRN TP MUSCLE PAIN 12/02/20 15:45 02/04/21 17:26 DC Al Hydroxide/Mg Hydroxide (Mylanta Plus Xs) 15 ml PRN AFTMEALHC PRN PO DYSPEPSIA 12/02/20 15:45 02/06/21 09:19 Magnesium Hydroxide (Milk Of Magnesia) 2,400 mg PRN QHS PRN PO CONSTIPATION 12/02/20 15:45 12/03/20 16:29 Lisinopril (Prinivil) 10 mg DAILY PO 12/03/20 09:00 02/09/21 08:37 Multivitamins/ Calcium (Thera-M Plus) 1 tab DAILY PO 12/03/20 09:00 02/09/21 08:37 Olanzapine (ZyPREXA ZYDIS) 2.5 mg PRN Q2HRS PRN PO PSYCHOSIS 12/02/20 17:00 02/08/21 20:11 Potassium Chloride (Klor-Con) 20 meq DAILYWBKFT PO 12/04/20 08:00 02/09/21 08:37 Sertraline HCl (Zoloft) 25 mg DAILY PO 12/04/20 09:00 12/06/20 21:00 DC 12/06/20 08:17 Sertraline HCl (Zoloft) 50 mg DAILY PO 12/07/20 09:00 02/09/21 08:38 Quetiapine Fumarate (SEROquel) 12.5 mg 0900 PO 12/09/20 09:00 12/10/20 16:51 DC 12/10/20 09:00 Quetiapine Fumarate (SEROquel) 12.5 mg ONCE ONCE PO 12/08/20 17:15 12/08/20 17:16 DC 12/08/20 17:15 Quetiapine Fumarate (SEROquel) 12.5 mg 1700 PO 12/09/20 18:00 01/02/21 11:54 DC 01/01/21 17:00 Quetiapine Fumarate (SEROquel) 25 mg 0900 PO 12/11/20 09:00 02/09/21 08:38 Divalproex Sodium (Depakote Sprinkles) 125 mg BID PO 12/12/20 21:00 12/13/20 10:16 DC 12/13/20 08:35 Trazodone HCl (Desyrel) 50 mg PRN QHS PRN PO INSOMNIA 12/13/20 00:30 02/09/21 19:48 Divalproex Sodium (Depakote Sprinkles) 125 mg 0900,1700 PO 12/13/20 17:00 12/13/20 17:49 DC 12/13/20 16:35 Valproic Acid (Depakene) 125 mg 0900,1700 PO 12/14/20 09:00 12/17/20 15:35 DC 12/17/20 08:39 Valproic Acid (Depakene) 125 mg [id number] PO 12/17/20 21:00 12/23/20 16:57 DC 12/23/20 14:05 Valproic Acid (Depakene) 125 mg QID PO 12/23/20 17:00 01/02/21 11:54 DC 01/02/21 08:35 Hydroxyzine HCl (Atarax) 10 mg PRN Q2HR PRN PO ITCHING 12/29/20 20:15 01/31/21 20:20 Quetiapine Fumarate (SEROquel) 25 mg 1700 PO 01/02/21 17:00 02/09/21 17:05 Valproic Acid (Depakene) 125 mg 1300,1700 PO 01/02/21 13:00 01/24/21 18:13 DC 01/24/21 16:26 Quetiapine Fumarate (SEROquel) 12.5 mg 1200 PO 01/02/21 12:00 02/09/21 12:05 Valproic Acid (Depakene) 250 mg 0900,2100 PO 01/02/21 21:00 01/24/21 18:13 DC 01/24/21 08:20 Oxycodone/ Acetaminophen (Percocet 7.5/ 325) 1 tab PRN Q6HRS PRN PO MOD-SEV PAIN 01/13/21 16:45 01/21/21 18:29 DC Lidocaine (Lidoderm) 2 patch DAILY TD 01/22/21 09:00 02/02/21 18:41 DC 02/02/21 08:18 Miscellaneous (Lidoderm Patch Removal) 1 ea QHS MC 01/22/21 21:00 02/09/21 19:49 Valproic Acid (Depakene) 125 mg 1300,1700,2100 PO 01/24/21 21:00 02/09/21 19:49 Valproic Acid (Depakene) 250 mg 0900 PO 01/25/21 09:00 02/09/21 08:38 Lidocaine (Lidoderm) 2 patch PRN DAILY PRN TD MUSCLE PAIN 02/02/21 18:45 I have reviewed the current psychotropics carefully including drug interactions. Risk benefit ratio favors no change other than as noted in my dictated progress note. Diagnosis: Problems: (1) Major neurocognitive disorder (2) Impulse control disorder, unspecified (3) Anxiety disorder, unspecified (4) Dementia, vascular, with depression (5) Dementia, vascular, with delusions (6) Dementia in Alzheimer's disease with depression (7) Dementia in Alzheimer's disease with delusions (8) Dementia of the Alzheimer's type with early onset with behavioral disturbance EMILY CHARLES MD Feb 10, 2021 06:33
--- NOTE | 2021-02-10 06:45 | PDOC ---
Exam Note: Earle Note: This note is a late entry for 02/08/2021 covers elements not covered in my initial note. Subjective: The patient was seen face to face in the evening of 02/08/2021 with Erica APPIAH, discussed and reviewed the chart. The patient slept 7 hours previous night. She has not been wandering because she has been somewhat sedated. She is not aggressive. Review of Systems: Ambulation impaired. No CV, , pulmonary, ENT system symptoms on review. She does have poor vision. Mental Status Exam: The patient is oriented to herself. I met with her in the hallway in the evening and she was sitting outside her room. Insight and judgment, recent and remote memory, attention and concentration, fund of knowledge is poor consistent with her diagnoses. Laboratory Data: Reviewed. Impression: Major neurocognitive disorder Alzheimer vascular with delusion, depression, and behavioral disturbance. Anxiety disorder unspecified. Impulse control disorder unspecified. Plan: No change from initial note. Assessment: Vital Signs/I&O: Vital Signs Date Time Temp Pulse Resp B/P (MAP) Pulse Ox O2 Delivery O2 Flow Rate FiO2 02/10/21 05:57 98.3 81 16 107/67 (80) 95 02/06/21 16:05 Room Air I & O 02/09/21 02/09/21 02/10/21 15:00 23:00 07:00 Intake Total 720 ml 240 ml 120 ml Balance 720 ml 240 ml 120 ml Current Medications: Meds: Current Medications Medications (Trade) Dose Ordered Sig/Brianne Route PRN Reason Start Time Stop Time Status Last Admin Dose Admin Lorazepam (Ativan) 1 mg STK-MED ONCE .ROUTE 12/02/20 14:25 12/02/20 14:25 DC Lorazepam (Ativan) 1 mg 1X ONCE PO 12/02/20 14:30 12/02/20 14:36 DC 12/02/20 14:31 Potassium/ Phosphorus/Sodium (Phos-Nak) 1 pkt 1X ONCE PO 12/02/20 15:00 12/02/20 15:01 Cancel Potassium Bicarbonate (Potassium Effervescent Tablet) 20 meq STK-MED ONCE .ROUTE 12/02/20 14:56 12/02/20 14:57 DC Potassium Bicarbonate (Potassium Effervescent Tablet) 20 meq 1X ONCE PO 12/02/20 15:00 12/02/20 15:01 DC 12/02/20 15:00 Acetaminophen (Tylenol) 650 mg PRN Q6HRS PRN PO MILD PAIN / TEMP > 100.3'F 12/02/20 15:45 01/20/21 19:51 Multi-Ingredient Ointment (Analgesic [place]) 1 itz PRN QID PRN TP MUSCLE PAIN 12/02/20 15:45 02/04/21 17:26 DC Al Hydroxide/Mg Hydroxide (Mylanta Plus Xs) 15 ml PRN AFTMEALHC PRN PO DYSPEPSIA 12/02/20 15:45 02/06/21 09:19 Magnesium Hydroxide (Milk Of Magnesia) 2,400 mg PRN QHS PRN PO CONSTIPATION 12/02/20 15:45 12/03/20 16:29 Lisinopril (Prinivil) 10 mg DAILY PO 12/03/20 09:00 02/09/21 08:37 Multivitamins/ Calcium (Thera-M Plus) 1 tab DAILY PO 12/03/20 09:00 02/09/21 08:37 Olanzapine (ZyPREXA ZYDIS) 2.5 mg PRN Q2HRS PRN PO PSYCHOSIS 12/02/20 17:00 02/08/21 20:11 Potassium Chloride (Klor-Con) 20 meq DAILYWBKFT PO 12/04/20 08:00 02/09/21 08:37 Sertraline HCl (Zoloft) 25 mg DAILY PO 12/04/20 09:00 12/06/20 21:00 DC 12/06/20 08:17 Sertraline HCl (Zoloft) 50 mg DAILY PO 12/07/20 09:00 02/09/21 08:38 Quetiapine Fumarate (SEROquel) 12.5 mg 0900 PO 12/09/20 09:00 12/10/20 16:51 DC 12/10/20 09:00 Quetiapine Fumarate (SEROquel) 12.5 mg ONCE ONCE PO 12/08/20 17:15 12/08/20 17:16 DC 12/08/20 17:15 Quetiapine Fumarate (SEROquel) 12.5 mg 1700 PO 12/09/20 18:00 01/02/21 11:54 DC 01/01/21 17:00 Quetiapine Fumarate (SEROquel) 25 mg 0900 PO 12/11/20 09:00 02/09/21 08:38 Divalproex Sodium (Depakote Sprinkles) 125 mg BID PO 12/12/20 21:00 12/13/20 10:16 DC 12/13/20 08:35 Trazodone HCl (Desyrel) 50 mg PRN QHS PRN PO INSOMNIA 12/13/20 00:30 02/09/21 19:48 Divalproex Sodium (Depakote Sprinkles) 125 mg 0900,1700 PO 12/13/20 17:00 12/13/20 17:49 DC 12/13/20 16:35 Valproic Acid (Depakene) 125 mg 0900,1700 PO 12/14/20 09:00 12/17/20 15:35 DC 12/17/20 08:39 Valproic Acid (Depakene) 125 mg [id number] PO 12/17/20 21:00 12/23/20 16:57 DC 12/23/20 14:05 Valproic Acid (Depakene) 125 mg QID PO 12/23/20 17:00 01/02/21 11:54 DC 01/02/21 08:35 Hydroxyzine HCl (Atarax) 10 mg PRN Q2HR PRN PO ITCHING 12/29/20 20:15 01/31/21 20:20 Quetiapine Fumarate (SEROquel) 25 mg 1700 PO 01/02/21 17:00 02/09/21 17:05 Valproic Acid (Depakene) 125 mg 1300,1700 PO 01/02/21 13:00 01/24/21 18:13 DC 01/24/21 16:26 Quetiapine Fumarate (SEROquel) 12.5 mg 1200 PO 01/02/21 12:00 02/09/21 12:05 Valproic Acid (Depakene) 250 mg 0900,2100 PO 01/02/21 21:00 01/24/21 18:13 DC 01/24/21 08:20 Oxycodone/ Acetaminophen (Percocet 7.5/ 325) 1 tab PRN Q6HRS PRN PO MOD-SEV PAIN 01/13/21 16:45 01/21/21 18:29 DC Lidocaine (Lidoderm) 2 patch DAILY TD 01/22/21 09:00 02/02/21 18:41 DC 02/02/21 08:18 Miscellaneous (Lidoderm Patch Removal) 1 ea QHS MC 01/22/21 21:00 02/09/21 19:49 Valproic Acid (Depakene) 125 mg 1300,1700,2100 PO 01/24/21 21:00 02/09/21 19:49 Valproic Acid (Depakene) 250 mg 0900 PO 01/25/21 09:00 02/09/21 08:38 Lidocaine (Lidoderm) 2 patch PRN DAILY PRN TD MUSCLE PAIN 02/02/21 18:45 I have reviewed the current psychotropics carefully including drug interactions. Risk benefit ratio favors no change other than as noted in my dictated progress note. Diagnosis: Problems: (1) Major neurocognitive disorder (2) Impulse control disorder, unspecified (3) Anxiety disorder, unspecified (4) Dementia, vascular, with depression (5) Dementia, vascular, with delusions (6) Dementia in Alzheimer's disease with depression (7) Dementia in Alzheimer's disease with delusions (8) Dementia of the Alzheimer's type with early onset with behavioral disturbance EMILY CHARLES MD Feb 10, 2021 06:45
--- NOTE | 2021-02-10 06:56 | PDOC ---
Exam Note: Earle Note: This note is a late entry for 02/09/2021 covers elements not covered in my initial note. Subjective: The patient was seen face to face in the evening of 02/09/2021 with [place] APPIAH, discussed and reviewed the chart. The patient slept 7-3/4 hours previous night. She has been smiling, cooperative. She remains confused, not exit seeking which is an improvement. Review of Systems: Ambulation impaired. No CV, , pulmonary, ENT system sym ptoms on review. Reliability poor. Mental Status Exam: The patient is oriented to herself. Insight and judgment, recent and remote memory, attention and concentration, fund of knowledge is poor consistent with her diagnoses. Laboratory Data: Reviewed. Impression: Major neurocognitive disorder Alzheimer vascular with delusion, depression, and behavioral disturbance. Anxiety disorder unspecified. Impulse control disorder unspecified. Plan: No change from initial note. Assessment: Vital Signs/I&O: Vital Signs Date Time Temp Pulse Resp B/P (MAP) Pulse Ox O2 Delivery O2 Flow Rate FiO2 02/10/21 05:57 98.3 81 16 107/67 (80) 95 02/06/21 16:05 Room Air I & O 02/09/21 02/09/21 02/10/21 15:00 23:00 07:00 Intake Total 720 ml 240 ml 120 ml Balance 720 ml 240 ml 120 ml Current Medications: Meds: Current Medications Medications (Trade) Dose Ordered Sig/Brianne Route PRN Reason Start Time Stop Time Status Last Admin Dose Admin Lorazepam (Ativan) 1 mg STK-MED ONCE .ROUTE 12/02/20 14:25 12/02/20 14:25 DC Lorazepam (Ativan) 1 mg 1X ONCE PO 12/02/20 14:30 12/02/20 14:36 DC 12/02/20 14:31 Potassium/ Phosphorus/Sodium (Phos-Nak) 1 pkt 1X ONCE PO 12/02/20 15:00 12/02/20 15:01 Cancel Potassium Bicarbonate (Potassium Effervescent Tablet) 20 meq STK-MED ONCE .ROUTE 12/02/20 14:56 12/02/20 14:57 DC Potassium Bicarbonate (Potassium Effervescent Tablet) 20 meq 1X ONCE PO 12/02/20 15:00 12/02/20 15:01 DC 12/02/20 15:00 Acetaminophen (Tylenol) 650 mg PRN Q6HRS PRN PO MILD PAIN / TEMP > 100.3'F 12/02/20 15:45 01/20/21 19:51 Multi-Ingredient Ointment (Analgesic [place]) 1 itz PRN QID PRN TP MUSCLE PAIN 12/02/20 15:45 02/04/21 17:26 DC Al Hydroxide/Mg Hydroxide (Mylanta Plus Xs) 15 ml PRN AFTMEALHC PRN PO DYSPEPSIA 12/02/20 15:45 02/06/21 09:19 Magnesium Hydroxide (Milk Of Magnesia) 2,400 mg PRN QHS PRN PO CONSTIPATION 12/02/20 15:45 12/03/20 16:29 Lisinopril (Prinivil) 10 mg DAILY PO 12/03/20 09:00 02/09/21 08:37 Multivitamins/ Calcium (Thera-M Plus) 1 tab DAILY PO 12/03/20 09:00 02/09/21 08:37 Olanzapine (ZyPREXA ZYDIS) 2.5 mg PRN Q2HRS PRN PO PSYCHOSIS 12/02/20 17:00 02/08/21 20:11 Potassium Chloride (Klor-Con) 20 meq DAILYWBKFT PO 12/04/20 08:00 02/09/21 08:37 Sertraline HCl (Zoloft) 25 mg DAILY PO 12/04/20 09:00 12/06/20 21:00 DC 12/06/20 08:17 Sertraline HCl (Zoloft) 50 mg DAILY PO 12/07/20 09:00 02/09/21 08:38 Quetiapine Fumarate (SEROquel) 12.5 mg 0900 PO 12/09/20 09:00 12/10/20 16:51 DC 12/10/20 09:00 Quetiapine Fumarate (SEROquel) 12.5 mg ONCE ONCE PO 12/08/20 17:15 12/08/20 17:16 DC 12/08/20 17:15 Quetiapine Fumarate (SEROquel) 12.5 mg 1700 PO 12/09/20 18:00 01/02/21 11:54 DC 01/01/21 17:00 Quetiapine Fumarate (SEROquel) 25 mg 0900 PO 12/11/20 09:00 02/09/21 08:38 Divalproex Sodium (Depakote Sprinkles) 125 mg BID PO 12/12/20 21:00 12/13/20 10:16 DC 12/13/20 08:35 Trazodone HCl (Desyrel) 50 mg PRN QHS PRN PO INSOMNIA 12/13/20 00:30 02/09/21 19:48 Divalproex Sodium (Depakote Sprinkles) 125 mg 0900,1700 PO 12/13/20 17:00 12/13/20 17:49 DC 12/13/20 16:35 Valproic Acid (Depakene) 125 mg 0900,1700 PO 12/14/20 09:00 12/17/20 15:35 DC 12/17/20 08:39 Valproic Acid (Depakene) 125 mg [id number] PO 12/17/20 21:00 12/23/20 16:57 DC 12/23/20 14:05 Valproic Acid (Depakene) 125 mg QID PO 12/23/20 17:00 01/02/21 11:54 DC 01/02/21 08:35 Hydroxyzine HCl (Atarax) 10 mg PRN Q2HR PRN PO ITCHING 12/29/20 20:15 01/31/21 20:20 Quetiapine Fumarate (SEROquel) 25 mg 1700 PO 01/02/21 17:00 02/09/21 17:05 Valproic Acid (Depakene) 125 mg 1300,1700 PO 01/02/21 13:00 01/24/21 18:13 DC 01/24/21 16:26 Quetiapine Fumarate (SEROquel) 12.5 mg 1200 PO 01/02/21 12:00 02/09/21 12:05 Valproic Acid (Depakene) 250 mg 0900,2100 PO 01/02/21 21:00 01/24/21 18:13 DC 01/24/21 08:20 Oxycodone/ Acetaminophen (Percocet 7.5/ 325) 1 tab PRN Q6HRS PRN PO MOD-SEV PAIN 01/13/21 16:45 01/21/21 18:29 DC Lidocaine (Lidoderm) 2 patch DAILY TD 01/22/21 09:00 02/02/21 18:41 DC 02/02/21 08:18 Miscellaneous (Lidoderm Patch Removal) 1 ea QHS MC 01/22/21 21:00 02/09/21 19:49 Valproic Acid (Depakene) 125 mg 1300,1700,2100 PO 01/24/21 21:00 02/09/21 19:49 Valproic Acid (Depakene) 250 mg 0900 PO 01/25/21 09:00 02/09/21 08:38 Lidocaine (Lidoderm) 2 patch PRN DAILY PRN TD MUSCLE PAIN 02/02/21 18:45 I have reviewed the current psychotropics carefully including drug interactions. Risk benefit ratio favors no change other than as noted in my dictated progress note. Diagnosis: Problems: (1) Major neurocognitive disorder (2) Impulse control disorder, unspecified (3) Anxiety disorder, unspecified (4) Dementia, vascular, with depression (5) Dementia, vascular, with delusions (6) Dementia in Alzheimer's disease with depression (7) Dementia in Alzheimer's disease with delusions (8) Dementia of the Alzheimer's type with early onset with behavioral disturbance EMILY CHARLES MD Feb 10, 2021 06:56
[2021-02-10 08:38] VITALS: BP 107/67
[2021-02-10] MEDS: POTASSIUM CHLORIDE 20 MEQ TABLET.ER. PO SCH (08:38)
[2021-02-10] MEDS: VALPROATE ACID 250 MG/5 ML ORAL SOLUTION PO SCH (08:38)
[2021-02-10] MEDS: LISINOPRIL 10 MG TABLET PO SCH (08:38)
[2021-02-10] MEDS: MULTIVITAMIN with MINERAL TABLET. PO SCH (08:39)
[2021-02-10] MEDS: SERTRALINE 50 MG TABLET. PO SCH (08:39)
[2021-02-10] MEDS: QUEtiapine 25 MG TABLET. PO SCH (08:39)
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
--- NOTE | 2021-02-10 22:57 | PDOC ---
Exam Note: Earle Note: Please also refer to the separate dictated note~for this date of service dictated separately.~Patient seen individually. Discussed the patient with Nursing staff reviewed the chart.~Reviewed interim history and current functioning. Reviewed vital signs,~Labs/ Radiology~and current medications noted below. Continue current treatment with the changes noted in the dictated addendum note Assessment: Vital Signs/I&O: Vital Signs Date Time Temp Pulse Resp B/P (MAP) Pulse Ox O2 Delivery O2 Flow Rate FiO2 02/10/21 08:38 81 107/67 02/10/21 05:57 98.3 16 95 02/06/21 16:05 Room Air I & O 02/09/21 02/09/21 02/10/21 14:59 22:59 06:59 Intake Total 720 ml 240 ml 120 ml Balance 720 ml 240 ml 120 ml Current Medications: Meds: Current Medications Medications (Trade) Dose Ordered Sig/Brianne Route PRN Reason Start Time Stop Time Status Last Admin Dose Admin Lorazepam (Ativan) 1 mg STK-MED ONCE .ROUTE 12/02/20 14:25 12/02/20 14:25 DC Lorazepam (Ativan) 1 mg 1X ONCE PO 12/02/20 14:30 12/02/20 14:36 DC 12/02/20 14:31 Potassium/ Phosphorus/Sodium (Phos-Nak) 1 pkt 1X ONCE PO 12/02/20 15:00 12/02/20 15:01 Cancel Potassium Bicarbonate (Potassium Effervescent Tablet) 20 meq STK-MED ONCE .ROUTE 12/02/20 14:56 12/02/20 14:57 DC Potassium Bicarbonate (Potassium Effervescent Tablet) 20 meq 1X ONCE PO 12/02/20 15:00 12/02/20 15:01 DC 12/02/20 15:00 Acetaminophen (Tylenol) 650 mg PRN Q6HRS PRN PO MILD PAIN / TEMP > 100.3'F 12/02/20 15:45 02/10/21 09:59 DC 01/20/21 19:51 Multi-Ingredient Ointment (Analgesic [place]) 1 itz PRN QID PRN TP MUSCLE PAIN 12/02/20 15:45 02/04/21 17:26 DC Al Hydroxide/Mg Hydroxide (Mylanta Plus Xs) 15 ml PRN AFTMEALHC PRN PO DYSPEPSIA 12/02/20 15:45 02/10/21 09:59 DC 02/06/21 09:19 Magnesium Hydroxide (Milk Of Magnesia) 2,400 mg PRN QHS PRN PO CONSTIPATION 12/02/20 15:45 02/10/21 09:59 DC 12/03/20 16:29 Lisinopril (Prinivil) 10 mg DAILY PO 12/03/20 09:00 02/10/21 09:59 DC 02/10/21 08:38 Multivitamins/ Calcium (Thera-M Plus) 1 tab DAILY PO 12/03/20 09:00 02/10/21 09:59 DC 02/10/21 08:39 Olanzapine (ZyPREXA ZYDIS) 2.5 mg PRN Q2HRS PRN PO PSYCHOSIS 12/02/20 17:00 02/10/21 09:59 DC 02/08/21 20:11 Potassium Chloride (Klor-Con) 20 meq DAILYWBKFT PO 12/04/20 08:00 02/10/21 09:59 DC 02/10/21 08:38 Sertraline HCl (Zoloft) 25 mg DAILY PO 12/04/20 09:00 12/06/20 21:00 DC 12/06/20 08:17 Sertraline HCl (Zoloft) 50 mg DAILY PO 12/07/20 09:00 02/10/21 09:59 DC 02/10/21 08:39 Quetiapine Fumarate (SEROquel) 12.5 mg 0900 PO 12/09/20 09:00 12/10/20 16:51 DC 12/10/20 09:00 Quetiapine Fumarate (SEROquel) 12.5 mg ONCE ONCE PO 12/08/20 17:15 12/08/20 17:16 DC 12/08/20 17:15 Quetiapine Fumarate (SEROquel) 12.5 mg 1700 PO 12/09/20 18:00 01/02/21 11:54 DC 01/01/21 17:00 Quetiapine Fumarate (SEROquel) 25 mg 0900 PO 12/11/20 09:00 02/10/21 09:59 DC 02/10/21 08:39 Divalproex Sodium (Depakote Sprinkles) 125 mg BID PO 12/12/20 21:00 12/13/20 10:16 DC 12/13/20 08:35 Trazodone HCl (Desyrel) 50 mg PRN QHS PRN PO INSOMNIA 12/13/20 00:30 02/10/21 09:59 DC 02/09/21 19:48 Divalproex Sodium (Depakote Sprinkles) 125 mg 0900,1700 PO 12/13/20 17:00 12/13/20 17:49 DC 12/13/20 16:35 Valproic Acid (Depakene) 125 mg 0900,1700 PO 12/14/20 09:00 12/17/20 15:35 DC 12/17/20 08:39 Valproic Acid (Depakene) 125 mg [id number] PO 12/17/20 21:00 12/23/20 16:57 DC 12/23/20 14:05 Valproic Acid (Depakene) 125 mg QID PO 12/23/20 17:00 01/02/21 11:54 DC 01/02/21 08:35 Hydroxyzine HCl (Atarax) 10 mg PRN Q2HR PRN PO ITCHING 12/29/20 20:15 02/10/21 09:59 DC 01/31/21 20:20 Quetiapine Fumarate (SEROquel) 25 mg 1700 PO 01/02/21 17:00 02/10/21 09:59 DC 02/09/21 17:05 Valproic Acid (Depakene) 125 mg 1300,1700 PO 01/02/21 13:00 01/24/21 18:13 DC 01/24/21 16:26 Quetiapine Fumarate (SEROquel) 12.5 mg 1200 PO 01/02/21 12:00 02/10/21 09:59 DC 02/09/21 12:05 Valproic Acid (Depakene) 250 mg 0900,2100 PO 01/02/21 21:00 01/24/21 18:13 DC 01/24/21 08:20 Oxycodone/ Acetaminophen (Percocet 7.5/ 325) 1 tab PRN Q6HRS PRN PO MOD-SEV PAIN 01/13/21 16:45 01/21/21 18:29 DC Lidocaine (Lidoderm) 2 patch DAILY TD 01/22/21 09:00 02/02/21 18:41 DC 02/02/21 08:18 Miscellaneous (Lidoderm Patch Removal) 1 ea QHS MC 01/22/21 21:00 02/10/21 09:59 DC 02/09/21 19:49 Valproic Acid (Depakene) 125 mg 1300,1700,2100 PO 01/24/21 21:00 02/10/21 09:59 DC 02/09/21 19:49 Valproic Acid (Depakene) 250 mg 0900 PO 01/25/21 09:00 02/10/21 09:59 DC 02/10/21 08:38 Lidocaine (Lidoderm) 2 patch PRN DAILY PRN TD MUSCLE PAIN 02/02/21 18:45 02/10/21 09:59 DC I have reviewed the current psychotropics carefully including drug interactions. Risk benefit ratio favors no change other than as noted in my dictated progress note. Diagnosis: Problems: (1) Major neurocognitive disorder (2) Impulse control disorder, unspecified (3) Anxiety disorder, unspecified (4) Dementia, vascular, with depression (5) Dementia, vascular, with delusions (6) Dementia in Alzheimer's disease with depression (7) Dementia in Alzheimer's disease with delusions (8) Dementia of the Alzheimer's type with early onset with behavioral disturbance EMILY CHARLES MD Feb 10, 2021 22:57
== END 2021-02-10 09:40 | DRG 57 ==
LOC: ER 12:48 → GEROPSY 15:25
PROVIDERS: ADMIT Psychiatry & Neurology Psychiatry; ATTEND Psychiatry & Neurology Psychiatry
DX: G30.9 Alzheimer's disease, unspecified (principal); F01.51 Vascular dementia, unspecified severity, with behavioral disturbance; F02.81 Dementia in other diseases classified elsewhere, unspecified severity, with behavioral disturbance; Z66 Do not resuscitate; I10 Essential (primary) hypertension; G47.00 Insomnia, unspecified; F63.9 Impulse disorder, unspecified; E87.6 Hypokalemia; F32.9 Major depressive disorder, single episode, unspecified; F41.1 Generalized anxiety disorder; Z20.822 Contact with and (suspected) exposure to COVID-19; M19.90 Unspecified osteoarthritis, unspecified site; Z91.83 Wandering in diseases classified elsewhere; Z90.710 Acquired absence of both cervix and uterus; Z90.49 Acquired absence of other specified parts of digestive tract; Z79.899 Other long term (current) drug therapy
CPT/HCPCS: 36415; 51701; 80053; 80061; 80164; 81001; 81003; 82140; 82306; 82607; 83036; 83540; 83550; 83735; 84436; 84443; 84480; 85025; 85379; 86592; 87077; 87086; 93005; U0003; U0005; 97116; 97530; 99285-25